=== PATIENT | female | born 1960 ===

== ENCOUNTER 2020-05-25 09:32 | Outpatient (REF) | payer MEDICAID, SELFPAY ==
[2020-05-25 11:03] LABS: Free T4 (Free Thyroxine) 0.99 ng/dL (0.71-1.85); Thyroid Stimulating Hormone 1.26 mIU/mL (0.32-4.0)
[2020-05-28 08:32] LABS: Thyroglobulin Antibody <1 IU/mL (<=1); Thyroglobulin Level 0.2 ng/mL
== END 2020-05-25 09:33 | disposition home or self-care (01) ==
LOC: HO.LAB 09:32
PROVIDERS: Visit Provider Internal Medicine Endocrinology, Diabetes & Metabolism
DX: C73 Malignant neoplasm of thyroid gland (principal)
CPT/HCPCS: 36415; 84432; 84439; 84443; 86800

== ENCOUNTER → 2020-05-27 15:35 | Outpatient (BNVA) | payer MEDICAID, SELFPAY | PROVIDERS: PCP Family Medicine; Visit Provider Internal Medicine Endocrinology, Diabetes & Metabolism | DX: C73 Malignant neoplasm of thyroid gland (principal); E89.0 Postprocedural hypothyroidism; E11.42 Type 2 diabetes mellitus with diabetic polyneuropathy; E78.5 Hyperlipidemia, unspecified; E55.9 Vitamin D deficiency, unspecified; M85.80 Other specified disorders of bone density and structure, unspecified site | CPT/HCPCS: 99212 ==

== ENCOUNTER 2020-05-31 09:18 | Outpatient (REF) | payer MEDICAID, SELFPAY ==
[2020-05-31 10:33] LABS: Hematocrit 37.4 % (37-47); Hemoglobin 12.3 g/dl (12.0-16.0); Mean Corpuscular HGB Conc 32.9 g/dl (31.0-35.0); Mean Corpuscular Hemoglobin 28.5 pg (27.0-33.0); Mean Corpuscular Volume 86.8 fL (80-98); Mean Platelet Volume 12.3 fL (9.4-12.3); Platelet Count 139 X10*3/uL (160-400); Red Blood Count 4.31 X10*6/uL (4.20-5.50); Red Cell Distribution Width 12.2 % (11.0-16.0); White Blood Count 6.9 X10*3/uL (4.8-10.8)
[2020-05-31 10:54] LABS: Alanine Aminotransferase 15 U/L (0-31); Albumin Level 4.2 g/dL (3.5-5.0); Alkaline Phosphatase 51 U/L (39-117); Anion Gap 10 (12-20); Aspartate Amino Transferase 20 U/L (5-31); Bilirubin Total 0.5 mg/dL (0.0-1.0); Blood Urea Nitrogen 11 mg/dL (9-16); Calcium 8.6 mg/dL (8.4-10.2); Carbon Dioxide 29 mmol/L (22-29); Chloride 105 mmol/L (96-108); Cholesterol 149 mg/dL; Estimated Glomerular Filt Rate > 60; Glucose Fasting 97 mg/dL (60-99); HDL Cholesterol 45 mg/dL; LDL Cholesterol Calculated 87 mg/dl; Potassium 4.2 mmol/l (3.3-5.1); Sodium 140 mmol/L (135-145); Total Protein 6.6 g/dL (6.5-8.0); Triglycerides 89 mg/dL
[2020-05-31 10:59] LABS: Estimated Average Glucose 105 mg/dL; Hemoglobin A1c % 5.3 %
[2020-05-31 11:10] LABS: Vitamin B12 423 pg/mL (200-900)
[2020-05-31 11:16] LABS: Vitamin D 25-OH Total 37.9 ng/mL (>30)
[2020-05-31 11:23] LABS: Creatinine Urine 33.22 mg/dL; Microalbumin Urine < 5.0 mg/L
[2020-06-01 19:22] LABS: LDL Cholesterol Direct 88 mg/dL (<100)
[2020-06-04 02:21] LABS: Thyroglobulin Antibody <1 IU/mL (<=1); Thyroglobulin Level 0.4 ng/mL
== END 2020-05-31 09:19 | disposition home or self-care (01) ==
LOC: HO.LAB 09:18
PROVIDERS: PCP Internal Medicine; Visit Provider Internal Medicine Endocrinology, Diabetes & Metabolism
DX: C73 Malignant neoplasm of thyroid gland (principal); M85.80 Other specified disorders of bone density and structure, unspecified site
CPT/HCPCS: 36415; 80053; 80061; 82043; 82306; 82607; 83036; 83721; 84432; 84439; 84443; 85027; 86800

== ENCOUNTER → 2020-08-19 13:59 | Outpatient (BNVA) | payer MEDICAID, SELFPAY | PROVIDERS: PCP Internal Medicine; Visit Provider Student in an Organized Health Care Education/Training Program | DX: M47.816 Spondylosis without myelopathy or radiculopathy, lumbar region (principal) | CPT/HCPCS: 99212 ==

== ENCOUNTER → 2020-08-25 14:45 | Outpatient (BNV) | payer MEDICAID, SELFPAY | PROVIDERS: PCP Internal Medicine; Referring Provider Internal Medicine; Visit Provider Internal Medicine Medical Oncology | DX: D69.6 Thrombocytopenia, unspecified (principal) | CPT/HCPCS: 99203; 99213 ==

== ENCOUNTER → 2021-01-06 10:03 | Outpatient (BNVA) | payer MEDICAID, SELFPAY | PROVIDERS: PCP Internal Medicine; Visit Provider Internal Medicine Endocrinology, Diabetes & Metabolism | DX: C73 Malignant neoplasm of thyroid gland (principal); E89.0 Postprocedural hypothyroidism; E11.42 Type 2 diabetes mellitus with diabetic polyneuropathy; E78.5 Hyperlipidemia, unspecified; M85.80 Other specified disorders of bone density and structure, unspecified site; E55.9 Vitamin D deficiency, unspecified; Z79.899 Other long term (current) drug therapy | CPT/HCPCS: 82947; 99212 ==

== ENCOUNTER 2021-01-14 15:19 | Inpatient (IN) | payer MEDICAID, SELFPAY ==
[2021-01-14] VITALS (13 sets, daily range): BP systolic 91–107; BP diastolic 45–56; PULSE 56–90; RESP 11–19; TEMP 35.3–36.9; O2SAT 97–100; BMI 29.9
--- NOTE | 2021-01-14 | ECG_ITS ---
Test Reason : RESPIRTORY DISTRESS Blood Pressure : / mmHG Vent. Rate : 076 BPM Atrial Rate : 076 BPM P-R Int : 164 ms QRS Dur : 084 ms QT Int : 430 ms P-R-T Axes : 050 -05 018 degrees QTc Int : 483 ms Normal sinus rhythm Possible Left atrial enlargement Borderline ECG When compared with ECG of 05-FEB-2019 12:48, No significant change was found Referred By: Generic ED Physician Electronically Signed By:CYNDI RAMOS MD
--- NOTE | ~2021-01-14 | CT_ITS ---
Indication: Altered mental status, fall EXAMINATION: CT the brain and CT of the cervical spine. Axial imaging with coronal and sagittal reformatted images. Radiation dose [address] brain Comparison previous dated 01/23/2016. There is no midline shift. There is no mass effect. There is no hemorrhage. The basilar cisterns appear patent. The posterior fossa is grossly within normal limits. There is no extra-axial collection. Ventricles normal. Small air-fluid level in the right maxillary sinus. No fracture on the bone windows. CT cervical spine; Negative for fracture or dislocation. CT/CT cervical spine wo con IMPRESSION: Negative acute noncontrast CT of the brain. Small air-fluid level in the right maxillary sinus No fracture or dislocation of the cervical spine.
--- NOTE | ~2021-01-14 | CT_ITS ---
EXAMINATION: CT CHEST, ABDOMEN AND PELVIS WITHOUT CONTRAST CLINICAL INFORMATION: Altered mental status. Fall. COMPARISON: CT scan of the abdomen and pelvis dated 02/14/2019. Chest x-ray dated 02/05/2019. TECHNIQUE: Multidetector volumetric imaging was performed from the base of the neck through the pubic symphysis. Sagittal and coronal reformatted images were obtained on the technologist workstation. This CT examination was performed using dose optimization techniques as appropriate, variously including the following: *Automated exposure control *Adjustment of mA and/or kV according to patient size (this includes techniques or standardized protocols for targeted exams where dose is matched to indication/reason for exam; i.e. extremities or head) *Use of iterative reconstruction technique DLP: CT SCAN OF THE CHEST: 344.98 mGy-cm. CT SCAN OF THE ABDOMEN AND PELVIS: 960.83 mGy-cm. FINDINGS: CT SCAN OF THE CHEST: LUNGS: Endotracheal tube approximately 3 cm above the masood. Trace left pleural effusion and associated dense consolidation and volume loss in the left lower lobe. Mild dependent atelectasis in right lower lobe. Evaluation of lungs limited by motion artifact. There appear to be subtle scattered centrilobular groundglass opacities in the lungs, perhaps related to respiratory bronchiolitis. Subpleural reticular opacities are also seen scattered in the lungs bilaterally and dependent and nondependent portions, possibly representing interstitial lung disease. Overall, however, evaluation of the lungs is is not adequate on this exam due to motion artifact. LYMPHOVASCULAR STRUCTURES: Heart is enlarged with primarily enlargement of the left heart chambers. Moderate to severe coronary artery calcifications. Aorta normal in caliber with mild atherosclerotic calcification seen. Trace fluid in the superior pericardial recess. No mediastinal, hilar or axillary adenopathy or free fluid collection. THYROID GLAND: Surgically absent. CHEST WALL: The patient is status post right mastectomy. BONES: No focal findings. CT SCAN OF THE ABDOMEN AND PELVIS: LIVER, GALLBLADDER, AND BILIARY TREE: The liver is normal in size, shape, and attenuation. No focal hepatic lesion on noncontrast imaging. The gallbladder is surgically absent. Resultant dilatation of the common bile duct up to 1 cm in the pancreatic head is noted. No obstructing stone or mass is seen. Mild central intrahepatic ductal dilatation is noted. PANCREAS: Unremarkable on noncontrast imaging. SPLEEN, ADRENAL GLANDS: Unremarkable on noncontrast imaging. KIDNEYS AND URETERS: The kidneys are normal in size, shape, and attenuation. No hydronephrosis, hydroureter, or calculi seen. No perinephric stranding. BLADDER: Unremarkable. PELVIC VISCERA: Unremarkable. GASTROINTESTINAL TRACT: There is distention of the stomach with large air-fluid level seen. No definite evidence of gastric outlet obstruction is, however, seen. Small and large bowel loops are decompressed and unremarkable . The appendix is not seen but no focal inflammatory process is noted in the right lower quadrant. ABDOMINAL WALL: Tiny fat-containing umbilical hernia is seen. LYMPH NODES, VASCULAR: No abdominal or pelvic adenopathy or free fluid. Abdominal aorta normal in caliber with mild atherosclerotic calcification seen involving the aorta iliac and femoral vessels. OSSEOUS STRUCTURES: Bilateral L5 pars defects are seen without spondylolisthesis. No acute fracture seen. Mild multilevel vertebral spurring in the thoracolumbar spine. CT/CT abdomen pelvis wo con IMPRESSION: 1. No evidence of acute injury to the chest, abdomen or pelvis. 2. As discussed above, evaluation of the lungs is extremely limited due to motion artifact. There may be underlying interstitial lung disease and respiratory bronchiolitis. However, close clinical correlation is requested and repeat CT imaging would be needed for clarification of findings. 3. Cardiomegaly and prominent atherosclerotic calcifications. 4. Status post thyroidectomy, right mastectomy, cholecystectomy with resultant mild biliary dilatation. 5. Tiny fat-containing umbilical hernia.
--- NOTE | ~2021-01-14 | CT_ITS ---
Indication: Altered mental status, fall EXAMINATION: CT the brain and CT of the cervical spine. Axial imaging with coronal and sagittal reformatted images. Radiation dose [address] brain Comparison previous dated 01/23/2016. There is no midline shift. There is no mass effect. There is no hemorrhage. The basilar cisterns appear patent. The posterior fossa is grossly within normal limits. There is no extra-axial collection. Ventricles normal. Small air-fluid level in the right maxillary sinus. No fracture on the bone windows. CT cervical spine; Negative for fracture or dislocation. CT/CT head/brain wo con IMPRESSION: Negative acute noncontrast CT of the brain. Small air-fluid level in the right maxillary sinus No fracture or dislocation of the cervical spine.
--- NOTE | 2021-01-14 15:26 | ED_ITS ---
HPI - Altered Mental Status General Chief Complaint: Dyspnea Stated Complaint: resp distress Time Seen by Provider: 01/14/21 15:23 Source: EMS and old records reviewed Mode of arrival: EMS Limitations: altered mental status History of Present Illness HPI narrative: 60 yo female with hx of DM, osteopenia, thrombocytopenia suspected ITP, asthma, HLD comes in with reported fall earlier in the day then was at a sporting event was unresponsive EMS found patient with snoring respirations sats in the 40s EMS notes bystanders were trying to put food in her mouth when she was unresponsive, their blood sugar was > 100, she was intubated by EMS sats up to 99%, given versed en route as she became more alert with oxygen MD complaint: altered mental status Onset (ago): minute(s) Timing confirmed by: family member Severity: severe Context: other ( told EMS the patient fell earlier today) Treatments prior to arrival: oxygen, intubation and other (IV versed) Related Data Home Medications Medication Instructions Recorded Confirmed albuterol sulfate 90 mcg/actuation 2 puff INHALATION Q6H PRN 05/27/20 01/06/21 aerosol inhaler aspirin 81 mg tablet,delayed 81 mg PO DAILY 05/27/20 01/06/21 release atorvastatin 40 mg tablet 40 mg PO DAILY 05/27/20 01/06/21 cholecalciferol (vitamin D3) 25 25 mcg PO DAILY 05/27/20 01/06/21 mcg (1,000 unit) capsule clonazepam 0.5 mg tablet 0.5 mg PO DAILY 05/27/20 01/06/21 clonazepam 2 mg tablet 2 mg PO DAILY 05/27/20 01/06/21 escitalopram oxalate 20 mg tablet 20 mg PO DAILY 05/27/20 01/06/21 fluticasone propionate 110 1 puff INHALATION BID 05/27/20 01/06/21 mcg/actuation HFA aerosol inhaler lanolin alcohols-mineral 1 applic TOPICAL DAILY 05/27/20 01/06/21 oil-w.petrolatum-ceresin topical cream sennosides 8.6 mg tablet 8.6 mg PO DAILY 05/27/20 01/06/21 Previous Rx's Medication Instructions Recorded baclofen 10 mg tablet 10 mg PO BID PRN #60 tab 08/16/20 tramadol 50 mg tablet 50 mg PO Q6H #120 tab 08/17/20 levothyroxine 150 mcg tablet 150 mcg PO DAILY 30 Days #30 tab 01/06/21 sitagliptin 100 mg tablet 100 mg PO DAILY #30 tab 01/06/21 Allergies Allergy/AdvReac Type Severity Reaction Status Date / Time ibuprofen Allergy Unknown ITCHY Unverified 08/19/20 14:05 Review of Systems Review of Systems: ROS unable to be obtained due to altered mental status PMFSH Past Medical History Medical History (Updated 01/14/21 @ 17:22 by Kami Collier DO) Diabetes type 2, controlled Diabetic polyneuropathy associated with type 2 diabetes mellitus Dyslipidemia H/O malignant neoplasm of skin Lumbar spondylosis Osteopenia Post-surgical hypothyroidism Primary thyroid cancer Vitamin D deficiency Surgical History History of biopsy History of bunionectomy History of carpal tunnel release Hx of cholecystectomy Hx of colonoscopy Hx of hysterectomy Hx of mastectomy Hx of thyroidectomy Family History Family History Father Diabetes mellitus Mother Cancer of eye Skin cancer of nose Social History Social History (Updated 01/06/21 @ 10:23 by RHONDA Lee) Alcohol intake: former Patient Tobacco Use Status: Current someday Tobacco user Cigarette Packs Per Day: 1 Advance Directives: No Advance Directives Information Provided: No Patient : No Physical Exam Vital Signs: Vital Signs: Last Vital Signs Temp 95.5 F L 01/14/21 16:40 Pulse 76 01/14/21 16:40 Resp 18 01/14/21 16:40 BP 107/49 L 01/14/21 16:40 Pulse Ox 100 01/14/21 16:40 Body Mass Index 29.9 Appearance: obtunded, severe distress Eyes: Pupils equal, round and reactive to light. 2mm but nystagmus and vertical gaze noted ENT: Pharynx scant ooze noted from upper gum line, food in oropharynx suctioned Neck: Normal inspection. Neck supple. CVS: Normal heart rate and rhythm. Pulses normal. Respiratory: No respiratory distress. Breath sounds coarse and diminished with gurgling sounds heards ETT pulled back on arrival 6.[address] pulled back to 22 gum line Abdomen: Soft and no trauma Skin: Skin warm and dry. pale skin color. Normal skin turgor. Extremities: No lower extremity edema. Neuro: opened eyes at one point but nothing purposeful, intermittent response to pain at this time Course Course Course Narrative: the patient seems more awake, she is biting her tube but not able to protect airway, at this time pending workup will hold her sedation. this seems more ETOH related at this time. POC normal. will hold narcan. wakes to voice, family able to calm her no medicatons for sedation on board, given zosyn for suspected aspiration has UTI - levofloxacin added noted that the patient has a hx of using oxycodone from the streets MDM - Altered Mental Status MDM Narrative Medical decision making narrative: 60 yo female with hx of DM, osteopenia, thrombocytopenia suspected ITP, asthma, HLD comes in with reported fall earlier in the day then was at a sporting event was unresponsive EMS found patient with snoring respirations sats in the 40s EMS notes bystanders were tryiing to put food in her mouth when she was unresponsive, their blood sugar was > 100, she was intubated by EMS sats up to 99%, given versed en route as she became more alert with oxygen, will obtain labs, CT scan of head/neck/chest/abdomen given falls and respiratory event, tox/infectious workup, IV steroids for wheezing and neb treatments, will attempt narcan IV post neb treatments in case this is opiate overdose she is on tramadol at home, no narcan given in the field Lab Data Result diagrams: 01/14/21 15:42 01/14/21 15:42 Labs: Lab Results 01/14/21 01/14/21 01/14/21 Range/Units 15:36 15:42 15:42 WBC 6.9 (4.8-10.8) X10*3/uL RBC 4.08 L (4.20-5.50) X10*6/uL Hgb 11.5 L (12.0-16.0) g/dl Hct 35.4 L (37-47) % MCV 86.8 (80-98) fL MCH 28.2 (27.0-33.0) pg MCHC 32.5 (31.0-35.0) g/dl RDW 12.6 (11.0-16.0) % Plt Count 122 L D (160-400) X10*3/uL MPV 12.0 (9.4-12.3) fL Immature Gran % (Auto) 0.6 H (0.0-0.4) % Neut % (Auto) 73.1 H (45-73) % Lymph % (Auto) 19.5 L (20-40) % [place] % (Auto) 4.5 (2-11) % Eos % (Auto) 1.7 (0-4) % Baso % (Auto) 0.6 (0-2) % Lymph # (Auto) 1.4 (1.2-4.9) X10*3/uL [place] # (Auto) 0.3 (0.1-1.2) X10*3/uL Eos # (Auto) 0.1 (0.0-0.4) X10*3/uL Baso # (Auto) 0.0 (0.0-0.2) X10*3/uL Abs Immat Gran (auto) 0.04 H (0.00-0.03) X10*3/uL Absolute Neuts (auto) 5.1 (2.0-8.3) X10*3/uL Absolute Nucleated RBC 0.000 (0.0-0.012) X10*3/uL Nucleated RBC % (auto) 0.0 (0.0-0.2) /100WBC Smear Tech's Comments VERIFIED PT (10.8-13.0) SEC INR (0.9-1.1) APTT (24.1-38.0) SEC VBG pH (7.32-7.43) VBG pCO2 mmHg VBG pO2 mmHg VBG HCO3 (22-26) mmol/L VBG O2 Saturation % VBG Base Excess mmol/L Sodium 144 (135-145) mmol/L Potassium 3.5 (3.3-5.1) mmol/L Chloride 110 H (96-108) mmol/L Carbon Dioxide 26 (22-29) mmol/L Anion Gap 12 (12-20) BUN 9 (9-16) mg/dL Creatinine 0.92 (0.5-1.4) mg/dL Estim Creat Clear Calc 63.8 Estimated GFR > 60 POC Glucose 187 H (60-115) mg/dL Random Glucose 202 H D (60-115) mg/dL Lactic Acid (0.5-2.0) mmol/L Calcium 9.0 (8.4-10.2) mg/dL Magnesium (1.6-2.6) mg/dL Total Bilirubin (0.0-1.0) mg/dL Direct Bilirubin (0.0-0.5) mg/dL AST (5-31) U/L ALT (0-31) U/L Alkaline Phosphatase (39-117) U/L Total Creatine Kinase (26-140) U/L Troponin I High Sens (<3.5-17.0) ng/L Total Protein (6.5-8.0) g/dL Albumin (3.5-5.0) g/dL Lipase (8-78) U/L Urine Color Urine Appearance Urine pH (5.0-8.0) Ur Specific [place] (1.005-1.025) Urine Protein (NEG-TRACE) MG/DL Urine Glucose (UA) (NEG) MG/DL Urine Ketones (NEG) MG/DL Urine Blood (NEG) Urine Nitrite (NEG) Ur Leukocyte Esterase (NEG) Urine RBC (0) /HPF Urine WBC (0-4) /HPF Urine WBC Clumps Ur Squamous Epith Cells /LPF Urine Bacteria /LPF Hyaline Casts /LPF Urine Mucus /LPF Urine Opiates Screen (Not Detect) Ur Barbiturates Screen (Not Detect) Ur Phencyclidine Scrn (Not Detect) Ur Amphetamines Screen (Not Detect) U Benzodiazepines Scrn (Not Detect) Urine Cocaine Screen (Not Detect) U Marijuana (THC) Screen (Not Detect) Ethyl Alcohol mg/dL COVID-19 ([facility]) (Negative) COVID-19 Clin Com 01/14/21 01/14/21 01/14/21 Range/Units 15:42 15:42 15:42 WBC (4.8-10.8) X10*3/uL RBC (4.20-5.50) X10*6/uL Hgb (12.0-16.0) g/dl Hct (37-47) % MCV (80-98) fL MCH (27.0-33.0) pg MCHC (31.0-35.0) g/dl RDW (11.0-16.0) % Plt Count (160-400) X10*3/uL MPV (9.4-12.3) fL Immature Gran % (Auto) (0.0-0.4) % Neut % (Auto) (45-73) % Lymph % (Auto) (20-40) % [place] % (Auto) (2-11) % Eos % (Auto) (0-4) % Baso % (Auto) (0-2) % Lymph # (Auto) (1.2-4.9) X10*3/uL [place] # (Auto) (0.1-1.2) X10*3/uL Eos # (Auto) (0.0-0.4) X10*3/uL Baso # (Auto) (0.0-0.2) X10*3/uL Abs Immat Gran (auto) (0.00-0.03) X10*3/uL Absolute Neuts (auto) (2.0-8.3) X10*3/uL Absolute Nucleated RBC (0.0-0.012) X10*3/uL Nucleated RBC % (auto) (0.0-0.2) /100WBC Smear Tech's Comments PT (10.8-13.0) SEC INR (0.9-1.1) APTT (24.1-38.0) SEC VBG pH (7.32-7.43) VBG pCO2 mmHg VBG pO2 mmHg VBG HCO3 (22-26) mmol/L VBG O2 Saturation % VBG Base Excess mmol/L Sodium (135-145) mmol/L Potassium (3.3-5.1) mmol/L Chloride (96-108) mmol/L Carbon Dioxide (22-29) mmol/L Anion Gap (12-20) BUN (9-16) mg/dL Creatinine (0.5-1.4) mg/dL Estim Creat Clear Calc Estimated GFR POC Glucose (60-115) mg/dL Random Glucose (60-115) mg/dL Lactic Acid 2.1 H* (0.5-2.0) mmol/L Calcium (8.4-10.2) mg/dL Magnesium 1.9 (1.6-2.6) mg/dL Total Bilirubin 0.3 (0.0-1.0) mg/dL Direct Bilirubin < 0.2 (0.0-0.5) mg/dL AST 26 (5-31) U/L ALT 17 (0-31) U/L Alkaline Phosphatase 67 (39-117) U/L Total Creatine Kinase 91 (26-140) U/L Troponin I High Sens < 3.5 (<3.5-17.0) ng/L Total Protein 6.4 L (6.5-8.0) g/dL Albumin 3.9 (3.5-5.0) g/dL Lipase 45 (8-78) U/L Urine Color Urine Appearance Urine pH (5.0-8.0) Ur Specific [place] (1.005-1.025) Urine Protein (NEG-TRACE) MG/DL Urine Glucose (UA) (NEG) MG/DL Urine Ketones (NEG) MG/DL Urine Blood (NEG) Urine Nitrite (NEG) Ur Leukocyte Esterase (NEG) Urine RBC (0) /HPF Urine WBC (0-4) /HPF Urine WBC Clumps Ur Squamous Epith Cells /LPF Urine Bacteria /LPF Hyaline Casts /LPF Urine Mucus /LPF Urine Opiates Screen (Not Detect) Ur Barbiturates Screen (Not Detect) Ur Phencyclidine Scrn (Not Detect) Ur Amphetamines Screen (Not Detect) U Benzodiazepines Scrn (Not Detect) Urine Cocaine Screen (Not Detect) U Marijuana (THC) Screen (Not Detect) Ethyl Alcohol mg/dL COVID-19 ([facility]) (Negative) COVID-19 Clin Com 01/14/21 01/14/21 01/14/21 Range/Units 15:45 15:45 15:45 WBC (4.8-10.8) X10*3/uL RBC (4.20-5.50) X10*6/uL Hgb (12.0-16.0) g/dl Hct (37-47) % MCV (80-98) fL MCH (27.0-33.0) pg MCHC (31.0-35.0) g/dl RDW (11.0-16.0) % Plt Count (160-400) X10*3/uL MPV (9.4-12.3) fL Immature Gran % (Auto) (0.0-0.4) % Neut % (Auto) (45-73) % Lymph % (Auto) (20-40) % [place] % (Auto) (2-11) % Eos % (Auto) (0-4) % Baso % (Auto) (0-2) % Lymph # (Auto) (1.2-4.9) X10*3/uL [place] # (Auto) (0.1-1.2) X10*3/uL Eos # (Auto) (0.0-0.4) X10*3/uL Baso # (Auto) (0.0-0.2) X10*3/uL Abs Immat Gran (auto) (0.00-0.03) X10*3/uL Absolute Neuts (auto) (2.0-8.3) X10*3/uL Absolute Nucleated RBC (0.0-0.012) X10*3/uL Nucleated RBC % (auto) (0.0-0.2) /100WBC Smear Tech's Comments PT 12.7 (10.8-13.0) SEC INR 1.1 (0.9-1.1) APTT 26.2 (24.1-38.0) SEC VBG pH (7.32-7.43) VBG pCO2 mmHg VBG pO2 mmHg VBG HCO3 (22-26) mmol/L VBG O2 Saturation % VBG Base Excess mmol/L Sodium (135-145) mmol/L Potassium (3.3-5.1) mmol/L Chloride (96-108) mmol/L Carbon Dioxide (22-29) mmol/L Anion Gap (12-20) BUN (9-16) mg/dL Creatinine (0.5-1.4) mg/dL Estim Creat Clear Calc Estimated GFR POC Glucose (60-115) mg/dL Random Glucose (60-115) mg/dL Lactic Acid (0.5-2.0) mmol/L Calcium (8.4-10.2) mg/dL Magnesium (1.6-2.6) mg/dL Total Bilirubin (0.0-1.0) mg/dL Direct Bilirubin (0.0-0.5) mg/dL AST (5-31) U/L ALT (0-31) U/L Alkaline Phosphatase (39-117) U/L Total Creatine Kinase (26-140) U/L Troponin I High Sens (<3.5-17.0) ng/L Total Protein (6.5-8.0) g/dL Albumin (3.5-5.0) g/dL Lipase (8-78) U/L Urine Color Urine Appearance Urine pH (5.0-8.0) Ur Specific [place] (1.005-1.025) Urine Protein (NEG-TRACE) MG/DL Urine Glucose (UA) (NEG) MG/DL Urine Ketones (NEG) MG/DL Urine Blood (NEG) Urine Nitrite (NEG) Ur Leukocyte Esterase (NEG) Urine RBC (0) /HPF Urine WBC (0-4) /HPF Urine WBC Clumps Ur Squamous Epith Cells /LPF Urine Bacteria /LPF Hyaline Casts /LPF Urine Mucus /LPF Urine Opiates Screen (Not Detect) Ur Barbiturates Screen (Not Detect) Ur Phencyclidine Scrn (Not Detect) Ur Amphetamines Screen (Not Detect) U Benzodiazepines Scrn (Not Detect) Urine Cocaine Screen (Not Detect) U Marijuana (THC) Screen (Not Detect) Ethyl Alcohol < 10 mg/dL COVID-19 ([facility]) Negative (Negative) COVID-19 Clin Com See Note 01/14/21 01/14/21 01/14/21 Range/Units 15:45 16:36 16:36 WBC (4.8-10.8) X10*3/uL RBC (4.20-5.50) X10*6/uL Hgb (12.0-16.0) g/dl Hct (37-47) % MCV (80-98) fL MCH (27.0-33.0) pg MCHC (31.0-35.0) g/dl RDW (11.0-16.0) % Plt Count (160-400) X10*3/uL MPV (9.4-12.3) fL Immature Gran % (Auto) (0.0-0.4) % Neut % (Auto) (45-73) % Lymph % (Auto) (20-40) % [place] % (Auto) (2-11) % Eos % (Auto) (0-4) % Baso % (Auto) (0-2) % Lymph # (Auto) (1.2-4.9) X10*3/uL [place] # (Auto) (0.1-1.2) X10*3/uL Eos # (Auto) (0.0-0.4) X10*3/uL Baso # (Auto) (0.0-0.2) X10*3/uL Abs Immat Gran (auto) (0.00-0.03) X10*3/uL Absolute Neuts (auto) (2.0-8.3) X10*3/uL Absolute Nucleated RBC (0.0-0.012) X10*3/uL Nucleated RBC % (auto) (0.0-0.2) /100WBC Smear Tech's Comments PT (10.8-13.0) SEC INR (0.9-1.1) APTT (24.1-38.0) SEC VBG pH 7.21 L (7.32-7.43) VBG pCO2 60 mmHg VBG pO2 222 mmHg VBG HCO3 24 (22-26) mmol/L VBG O2 Saturation 99.0 % VBG Base Excess -4.0 mmol/L Sodium (135-145) mmol/L Potassium (3.3-5.1) mmol/L Chloride (96-108) mmol/L Carbon Dioxide (22-29) mmol/L Anion Gap (12-20) BUN (9-16) mg/dL Creatinine (0.5-1.4) mg/dL Estim Creat Clear Calc Estimated GFR POC Glucose (60-115) mg/dL Random Glucose (60-115) mg/dL Lactic Acid (0.5-2.0) mmol/L Calcium (8.4-10.2) mg/dL Magnesium (1.6-2.6) mg/dL Total Bilirubin (0.0-1.0) mg/dL Direct Bilirubin (0.0-0.5) mg/dL AST (5-31) U/L ALT (0-31) U/L Alkaline Phosphatase (39-117) U/L Total Creatine Kinase (26-140) U/L Troponin I High Sens (<3.5-17.0) ng/L Total Protein (6.5-8.0) g/dL Albumin (3.5-5.0) g/dL Lipase (8-78) U/L Urine Color YELLOW Urine Appearance CLEAR Urine pH 5.5 (5.0-8.0) Ur Specific [place] >= 1.030 H (1.005-1.025) Urine Protein 1+ H (NEG-TRACE) MG/DL Urine Glucose (UA) NEG (NEG) MG/DL Urine Ketones NEG (NEG) MG/DL Urine Blood TRACE (NEG) Urine Nitrite POS H (NEG) Ur Leukocyte Esterase 1+ H (NEG) Urine RBC 1-4 (0) /HPF Urine WBC 15-29 H (0-4) /HPF Urine WBC Clumps NOTED Ur Squamous Epith Cells TRACE /LPF Urine Bacteria 2+ /LPF Hyaline Casts 0-2 /LPF Urine Mucus TRACE /LPF Urine Opiates Screen POSITIVE H (Not Detect) Ur Barbiturates Screen Not Detected (Not Detect) Ur Phencyclidine Scrn Not Detected (Not Detect) Ur Amphetamines Screen Not Detected (Not Detect) U Benzodiazepines Scrn POSITIVE H (Not Detect) Urine Cocaine Screen Not Detected (Not Detect) U Marijuana (THC) Screen Not Detected (Not Detect) Ethyl Alcohol mg/dL COVID-19 ([facility]) (Negative) COVID-19 Clin Com ECG Data ECG #1: Attestation: I personally reviewed and interpreted this ECG as follows: ECG interpretation date: 01/14/21 ECG interpretation time: 15:40 Interpretation: Rate: 76 Rhythm: NSR [place]: left Normal P waves. Normal JEFFERY. Normal QRS complex. ST T wave : normal no ANALIA qTC: normal prior studies: no acute ischemia The study has been interpreted contemporaneously by me. . Critical Care Time Critical Care Time Critical Care Time: Yes Total Critical Care Time: 60 Attestation: medical consult, management of vent, IV antibiotics I attest to this time spent taking care of the patient Discharge Plan Discharge Clinical Impression: Respiratory arrest, Acidosis, lactic UTI (urinary tract infection) Qualifiers: Urinary tract infection type: site unspecified Hematuria presence: without hematuria Qualified Code(s): N39.0 - Urinary tract infection, site not specified Opiate overdose Qualifiers: Encounter type: initial encounter Injury intent: accidental or unintentional Qualified Code(s): T40.601A - Poisoning by unspecified narcotics, accidental (unintentional), initial encounter Aspiration pneumonia Qualifiers: Aspiration pneumonia type: unspecified Laterality: left Lung location: unspecified part of lung Qualified Code(s): J69.0 - Pneumonitis due to inhalation of food and vomit Patient Disposition: Admitted As Inpatient
[2021-01-14 15:49] LABS: Basophils Percent Auto 0.6 % (0-2); MANUAL DIFF FLAG SCAN; Mean Corpuscular Volume 86.8 fL (80-98); PLT CLUMP 1; SCAN SMEAR FLAG 1
[2021-01-14] MEDS: methylPREDNISolone Sod Succ 125 MG/2 ML VIAL IVPUSH (15:49)
[2021-01-14] MEDS: Piperacillin Sodium/Tazobactam 3.375 GM in 0.9 % Sodium Chloride 50 ML IV (15:49)
[2021-01-14] MEDS: Magnesium Sulfate/H2O 2 GM/50 ML PIGGYBACK IV (15:49)
[2021-01-14 15:51] LABS: Eosinophils Absolute Auto 0.1 X10*3/uL (0.0-0.4); Eosinophils Percent Auto 1.7 % (0-4); Hematocrit 35.4 % (37-47); Hemoglobin 11.5 g/dl (12.0-16.0); Imm Gran Abs Auto 0.04 X10*3/uL (0.00-0.03); Imm Gran Pct Auto 0.6 % (0.0-0.4); Lymphocytes Absolute Auto 1.4 X10*3/uL (1.2-4.9); Lymphocytes Percent Auto 19.5 % (20-40); Mean Corpuscular HGB Conc 32.5 g/dl (31.0-35.0); Mean Corpuscular Hemoglobin 28.2 pg (27.0-33.0); Monocytes Absolute Auto 0.3 X10*3/uL (0.1-1.2); Monocytes Percent Auto 4.5 % (2-11); Neutrophils Absolute Auto 5.1 X10*3/uL (2.0-8.3); Neutrophils Percent Auto 73.1 % (45-73); Platelet Count 122 X10*3/uL (160-400); Red Blood Count 4.08 X10*6/uL (4.20-5.50); Red Cell Distribution Width 12.6 % (11.0-16.0); White Blood Count 6.9 X10*3/uL (4.8-10.8)
[2021-01-14] MEDS: Albuterol Sulfate (0.083%) 2.5 MG/3 ML VIAL.NEB 10 MG INHALE (15:54)
[2021-01-14 15:58] LABS: VBG HCO3 24 mmol/L (22-26); VBG pCO2 60 mmHg; VBG pO2 222 mmHg
[2021-01-14 16:01] LABS: Venous Blood Gas Refer to POC result
[2021-01-14 16:05] LABS: INTERNATIONAL NORM RATIO 1.1 (0.9-1.1); Prothrombin Time 12.7 SEC (10.8-13.0)
[2021-01-14 16:08] LABS: Partial Thromboplastin Time 26.2 SEC (24.1-38.0)
[2021-01-14 16:09] LABS: COVID-19 Test Negative (Negative); IDNOW Serial# 9DD0AD1C
[2021-01-14 16:10] LABS: Anion Gap 12 (12-20); Blood Urea Nitrogen 9 mg/dL (9-16); Carbon Dioxide 26 mmol/L (22-29); Chloride 110 mmol/L (96-108); Creatinine Clr Calc Pharmacy 63.8; Estimated Glomerular Filt Rate > 60; Glucose Random 202 mg/dL (60-115); Potassium 3.5 mmol/L (3.3-5.1); SLIDE REVIEW VERIFIED; Sodium 144 mmol/L (135-145)
[2021-01-14 16:10] LABS: VBG pH 7.21 (7.32-7.43)
[2021-01-14 16:11] LABS: Lactic Acid 2.1 mmol/L (0.5-2.0)
[2021-01-14 16:14] LABS: Alanine Aminotransferase 17 U/L (0-31); Albumin Level 3.9 g/dL (3.5-5.0); Alkaline Phosphatase 67 U/L (39-117); Aspartate Amino Transferase 26 U/L (5-31); Bilirubin Direct < 0.2 mg/dL (0.0-0.5); Bilirubin Total 0.3 mg/dL (0.0-1.0); Lipase 45 U/L (8-78); Magnesium 1.9 mg/dL (1.6-2.6); Total Protein 6.4 g/dL (6.5-8.0)
[2021-01-14 16:16] LABS: Troponin-I High Sensitivity < 3.5 ng/L (<3.5-17.0)
[2021-01-14 16:22] LABS: Ethanol < 10 mg/dL
[2021-01-14 16:39] LABS: Glucose, Whole Blood 187 mg/dL (60-115)
[2021-01-14 16:45] LABS: Glucose Urine UA NEG (NEG); Leukocyte Esterase Urine 1+ (NEG); Nitrite Urine POS (NEG); PH 5.5 (5.0-8.0); Specific Gravity - Urine >= 1.030 (1.005-1.025); UACC Culture Trigger YES; Urine Blood TRACE (NEG); Urine Ketones NEG (NEG); Urine Protein 1+ MG/DL (NEG-TRACE)
[2021-01-14 16:46] LABS: Appearance Urine CLEAR; Color Urine YELLOW
[2021-01-14 16:56] LABS: Bacteria Urine 2+ /LPF; Mucus Urine TRACE /LPF; Squamous Epithelial Cell Urine TRACE /LPF
[2021-01-14 16:57] LABS: Hyaline Casts Urine 0-2 /LPF; WBC Clumps Urine NOTED
[2021-01-14] MEDS: levoFLOXacin/D5W 500 MG/100 ML PIGGYBACK 100 MG IV (17:00)
[2021-01-14 17:13] LABS: Amphetamine Screen Urine Not Detected (Not Detect); Barbiturates, Urine Not Detected (Not Detect); Benzodiazepines Screen Urine POSITIVE (Not Detect); Cannabinoid Screen Urine Not Detected (Not Detect); Cocaine Screen Urine Not Detected (Not Detect); Opiate Screen Urine POSITIVE (Not Detect); Phencyclidine Screen Urine Not Detected (Not Detect)
--- NOTE | 2021-01-14 17:15 | PC.NURSE ---
Pt's family in waiting room, updated on plan of care. Awaiting CT scans.
[2021-01-14 17:45] LABS: Reflex Lactate? Lactic Acid Added
[2021-01-14] MEDS: propofoL 1,000 MG/100 ML VIAL 31.1 MG IVCONT (18:53)
[2021-01-14 19:12] LABS: ~Lactic Acid-LAB USE ONLY 1.2 mmol/L (0.5-2.0)
--- NOTE | 2021-01-14 19:32 | PM.CCHP ---
History of Present Illness Date of Service: 01/14/21 Chief Complaint: Unresponsive This is a 60-year-old female with a history of diabetes mellitus, chronic thrombocytopenia suspected ITP, asthma, fibromyalgia, osteoarthritis, hyperlipidemia, postsurgical hypothyroidism and history of left breast cancer status post surgery/radiation Who presented to the emergency room after found unresponsive by EMS. Per EMS, patient was in a sporting event suddenly became unresponsive. Bystanders were trying to put food in her mouth and saturation in the 40s. She was intubated on the field, blood sugar was noted to be > 100 and saturations 99% after intubation. Laboratory data significant for venous pH 7.21, platelets of 122. Urine toxicology positive for opiates. Imaging: Head CT: no acute findings Cervical spine CT: no acute fracture/dislocation Chest CT: no evidence of acute injury. Underlying interstitial lung disease and respiratory bronchiolitis. Abdomen/pelvis: no signs of acute injury. In the emergency room, she received Narcan, levofloxacin, Zosyn, Solu-Medrol, magnesium 2, and 2.1 L of normal saline. It was noted that patient does not take any prescription opiate, but in the emergency room patient did admit patient has a history of obtaining oxycodone from the street. She will be admitted into the ICU for hypoxic respiratory failure respiratory failure Review of Systems Review of Systems: unable to perform patient intubated [facility] Past Medical History Medical History (Updated 01/14/21 @ 20:01 by Lynsey Santos) Diabetes type 2, controlled Diabetic polyneuropathy associated with type 2 diabetes mellitus Dyslipidemia H/O malignant neoplasm of skin Lumbar spondylosis Osteopenia Post-surgical hypothyroidism Primary thyroid cancer Vitamin D deficiency Family History Family History Father Diabetes mellitus Mother Cancer of eye Skin cancer of nose Surgical History Surgical History History of biopsy History of bunionectomy History of carpal tunnel release Hx of cholecystectomy Hx of colonoscopy Hx of hysterectomy Hx of mastectomy Hx of thyroidectomy Social History Social History (Updated 01/06/21 @ 10:23 by RHONDA Lee) Alcohol intake: former Patient Tobacco Use Status: Current someday Tobacco user Cigarette Packs Per Day: 1 Advance Directives: No Advance Directives Information Provided: No Patient : No Meds Allergies Allergy/AdvReac Type Severity Reaction Status Date / Time ibuprofen Allergy Unknown ITCHY Unverified 08/19/20 14:05 Active Medications: Current Medications Generic Name Dose Route Start Last Admin Trade Name Freq PRN Reason Stop Dose Admin Chlorhexidine Gluconate 15 ml 01/14/21 17:30 Chlorhexidine Gluc Oral Rinse 15 Ml Mouthwash BUCCAL Q8H CHUCK Famotidine 20 mg 01/14/21 21:00 Famotidine/Pf 20 Mg/2 Ml Vial IVPUSH BID CHUCK Heparin Sodium (Porcine) 5,000 unit 01/14/21 18:00 Heparin Sodium,Porcine 5,000 Unit/Ml Vial SUBCUT Q8H CHUCK Fentanyl 1,000 mcg in 100 mls @ 0 mls/hr 01/14/21 15:45 Sublimaze/Ns IVCONT .Q0M CHUCK Protocol Per Protocol Midazolam HCl 50 mg in 50 mls @ 2 mls/hr 01/14/21 15:45 01/14/21 18:28 Versed IVCONT Not Given .Q24H CHUCK 2 MG/HR Propofol 1,000 mg in 100 mls @ 0 mls/hr 01/14/21 17:45 01/14/21 18:53 Diprivan IVCONT 72 mcg/kg/min .Q0M CHUCK 31.1 mls/hr Administration Protocol Per Protocol Ampicillin Sodium/Sulbactam 100 mls @ 200 mls/hr 01/14/21 23:00 Sodium 3 gm/ Sodium Chloride IV Q6H CHUCK Insulin Human Lispro 0 unit 01/14/21 17:45 Insulin Lispro 100 Unit/Ml 3 Ml Vial SUBCUT Q6H [facility] Protocol Naloxone HCl 0.2 mg 01/14/21 15:32 Naloxone Hcl 0.4 Mg/Ml Vial IVPUSH Q2M PRN Excessive sedation or RR < 8 Home Medications Medication Instructions Recorded Confirmed Last Taken Type albuterol sulfate 90 mcg/actuation 2 puff INHALATION Q6H PRN 05/27/20 01/06/21 Unknown History aerosol inhaler aspirin 81 mg tablet,delayed 81 mg PO DAILY 05/27/20 01/06/21 Unknown History release atorvastatin 40 mg tablet 40 mg PO DAILY 05/27/20 01/06/21 Unknown History cholecalciferol (vitamin D3) 25 25 mcg PO DAILY 05/27/20 01/06/21 Unknown History mcg (1,000 unit) capsule clonazepam 0.5 mg tablet 0.5 mg PO DAILY 05/27/20 01/06/21 Unknown History clonazepam 2 mg tablet 2 mg PO DAILY 05/27/20 01/06/21 Unknown History escitalopram oxalate 20 mg tablet 20 mg PO DAILY 05/27/20 01/06/21 Unknown History fluticasone propionate 110 1 puff INHALATION BID 05/27/20 01/06/21 Unknown History mcg/actuation HFA aerosol inhaler lanolin alcohols-mineral 1 applic TOPICAL DAILY 05/27/20 01/06/21 Unknown History oil-w.petrolatum-ceresin topical cream sennosides 8.6 mg tablet 8.6 mg PO DAILY 05/27/20 01/06/21 Unknown History Physical Exam Vital Signs: Vital Signs: Last Vital Signs Temp 97.3 F 01/14/21 18:55 Pulse 65 01/14/21 18:55 Resp 12 01/14/21 18:55 BP 105/53 L 01/14/21 18:55 Pulse Ox 99 01/14/21 18:55 Body Mass Index 29.9 Appearance: intubated, no active distress Eyes: Pupils equal, round and reactive to light. 2mm but nystagmus and vertical gaze noted ENT: dry mucous membrane Neck: Normal inspection. Neck supple. CVS: Normal heart rate and rhythm. Pulses normal. Respiratory: No respiratory distress. lungs diminished throughout Abdomen: Soft and no trauma Skin: Skin warm and dry. pale skin color. Normal skin turgor. Extremities: No lower extremity edema. Neuro: opens eyes randomly Results Labs CBC and Chem 7: 01/14/21 15:42 01/14/21 15:42 Labs: Laboratory Results - last 24 hr 01/14/21 01/14/21 01/14/21 15:36 15:42 15:42 MCV 86.8 MCH 28.2 MCHC 32.5 RDW 12.6 Plt Count 122 L D MPV 12.0 Immature Gran % (Auto) 0.6 H Neut % (Auto) 73.1 H Lymph % (Auto) 19.5 L [place] % (Auto) 4.5 Eos % (Auto) 1.7 Baso % (Auto) 0.6 Lymph # (Auto) 1.4 [place] # (Auto) 0.3 Eos # (Auto) 0.1 Baso # (Auto) 0.0 Abs Immat Gran (auto) 0.04 H Absolute Neuts (auto) 5.1 Absolute Nucleated RBC 0.000 Nucleated RBC % (auto) 0.0 Smear Tech's Comments VERIFIED PT INR APTT VBG pH VBG pCO2 VBG pO2 VBG HCO3 VBG O2 Saturation VBG Base Excess Anion Gap 12 Estim Creat Clear Calc 63.8 Estimated GFR > 60 POC Glucose 187 H Random Glucose 202 H D Lactic Acid Lactic Acid Fup @ 2Hr Calcium 9.0 Magnesium Total Bilirubin Direct Bilirubin AST ALT Alkaline Phosphatase Total Creatine Kinase Troponin I High Sens Total Protein Albumin Lipase Urine Color Urine Appearance Urine pH Ur Specific Reyn[place] Urine Protein Urine Glucose (UA) Urine Ketones Urine Blood Urine Nitrite Ur Leukocyte Esterase Urine RBC Urine WBC Urine WBC Clumps Ur Squamous Epith Cells Urine Bacteria Hyaline Casts Urine Mucus Urine Opiates Screen Ur Barbiturates Screen Ur Phencyclidine Scrn Ur Amphetamines Screen U Benzodiazepines Scrn Urine Cocaine Screen U Marijuana (THC) Screen Ethyl Alcohol COVID-19 ([facility]) COVID-19 Clin Com 01/14/21 01/14/21 01/14/21 15:42 15:42 15:42 MCV MCH MCHC RDW Plt Count MPV Immature Gran % (Auto) Neut % (Auto) Lymph % (Auto) [place] % (Auto) Eos % (Auto) Baso % (Auto) Lymph # (Auto) [place] # (Auto) Eos # (Auto) Baso # (Auto) Abs Immat Gran (auto) Absolute Neuts (auto) Absolute Nucleated RBC Nucleated RBC % (auto) Smear Tech's Comments PT INR APTT VBG pH VBG pCO2 VBG pO2 VBG HCO3 VBG O2 Saturation VBG Base Excess Anion Gap Estim Creat Clear Calc Estimated GFR POC Glucose Random Glucose Lactic Acid 2.1 H* Lactic Acid Fup @ 2Hr Calcium Magnesium 1.9 Total Bilirubin 0.3 Direct Bilirubin < 0.2 AST 26 ALT 17 Alkaline Phosphatase 67 Total Creatine Kinase 91 Troponin I High Sens < 3.5 Total Protein 6.4 L Albumin 3.9 Lipase 45 Urine Color Urine Appearance Urine pH Ur Specific Reyno Urine Protein Urine Glucose (UA) Urine Ketones Urine Blood Urine Nitrite Ur Leukocyte Esterase Urine RBC Urine WBC Urine WBC Clumps Ur Squamous Epith Cells Urine Bacteria Hyaline Casts Urine Mucus Urine Opiates Screen Ur Barbiturates Screen Ur Phencyclidine Scrn Ur Amphetamines Screen U Benzodiazepines Scrn Urine Cocaine Screen U Marijuana (THC) Screen Ethyl Alcohol COVID-19 ([facility]) COVID-19 Clin Com 01/14/21 01/14/21 01/14/21 15:45 15:45 15:45 MCV MCH MCHC RDW Plt Count MPV Immature Gran % (Auto) Neut % (Auto) Lymph % (Auto) [place] % (Auto) Eos % (Auto) Baso % (Auto) Lymph # (Auto) [place] # (Auto) Eos # (Auto) Baso # (Auto) Abs Immat Gran (auto) Absolute Neuts (auto) Absolute Nucleated RBC Nucleated RBC % (auto) Smear Tech's Comments PT 12.7 INR 1.1 APTT 26.2 VBG pH VBG pCO2 VBG pO2 VBG HCO3 VBG O2 Saturation VBG Base Excess Anion Gap Estim Creat Clear Calc Estimated GFR POC Glucose Random Glucose Lactic Acid Lactic Acid Fup @ 2Hr Calcium Magnesium Total Bilirubin Direct Bilirubin AST ALT Alkaline Phosphatase Total Creatine Kinase Troponin I High Sens Total Protein Albumin Lipase Urine Color Urine Appearance Urine pH Ur Specific Reyno Urine Protein Urine Glucose (UA) Urine Ketones Urine Blood Urine Nitrite Ur Leukocyte Esterase Urine RBC Urine WBC Urine WBC Clumps Ur Squamous Epith Cells Urine Bacteria Hyaline Casts Urine Mucus Urine Opiates Screen Ur Barbiturates Screen Ur Phencyclidine Scrn Ur Amphetamines Screen U Benzodiazepines Scrn Urine Cocaine Screen U Marijuana (THC) Screen Ethyl Alcohol < 10 COVID-19 ([facility]) Negative COVID-19 Clin Com See Note 01/14/21 01/14/21 01/14/21 15:45 16:36 16:36 MCV MCH MCHC RDW Plt Count MPV Immature Gran % (Auto) Neut % (Auto) Lymph % (Auto) [place] % (Auto) Eos % (Auto) Baso % (Auto) Lymph # (Auto) [place] # (Auto) Eos # (Auto) Baso # (Auto) Abs Immat Gran (auto) Absolute Neuts (auto) Absolute Nucleated RBC Nucleated RBC % (auto) Smear Tech's Comments PT INR APTT VBG pH 7.21 L VBG pCO2 60 VBG pO2 222 VBG HCO3 24 VBG O2 Saturation 99.0 VBG Base Excess -4.0 Anion Gap Estim Creat Clear Calc Estimated GFR POC Glucose Random Glucose Lactic Acid Lactic Acid Fup @ 2Hr Calcium Magnesium Total Bilirubin Direct Bilirubin AST ALT Alkaline Phosphatase Total Creatine Kinase Troponin I High Sens Total Protein Albumin Lipase Urine Color YELLOW Urine Appearance CLEAR Urine pH 5.5 Ur Specific Reyno >= 1.030 H Urine Protein 1+ H Urine Glucose (UA) NEG Urine Ketones NEG Urine Blood TRACE Urine Nitrite POS H Ur Leukocyte Esterase 1+ H Urine RBC 1-4 Urine WBC 15-29 H Urine WBC Clumps NOTED Ur Squamous Epith Cells TRACE Urine Bacteria 2+ Hyaline Casts 0-2 Urine Mucus TRACE Urine Opiates Screen POSITIVE H Ur Barbiturates Screen Not Detected Ur Phencyclidine Scrn Not Detected Ur Amphetamines Screen Not Detected U Benzodiazepines Scrn POSITIVE H Urine Cocaine Screen Not Detected U Marijuana (THC) Screen Not Detected Ethyl Alcohol COVID-19 ([facility]) COVID-19 [email or web address] 01/14/21 18:51 MCV MCH MCHC RDW Plt Count MPV Immature Gran % (Auto) Neut % (Auto) Lymph % (Auto) [place] % (Auto) Eos % (Auto) Baso % (Auto) Lymph # (Auto) [place] # (Auto) Eos # (Auto) Baso # (Auto) Abs Immat Gran (auto) Absolute Neuts (auto) Absolute Nucleated RBC Nucleated RBC % (auto) Smear Tech's Comments PT INR APTT VBG pH VBG pCO2 VBG pO2 VBG HCO3 VBG O2 Saturation VBG Base Excess Anion Gap Estim Creat Clear Calc Estimated GFR POC Glucose Random Glucose Lactic Acid Lactic Acid Fup @ 2Hr 1.2 Calcium Magnesium Total Bilirubin Direct Bilirubin AST ALT Alkaline Phosphatase Total Creatine Kinase Troponin I High Sens Total Protein Albumin Lipase Urine Color Urine Appearance Urine pH Ur Specific Reyn[place] Urine Protein Urine Glucose (UA) Urine Ketones Urine Blood Urine Nitrite Ur Leukocyte Esterase Urine RBC Urine WBC Urine WBC Clumps Ur Squamous Epith Cells Urine Bacteria Hyaline Casts Urine Mucus Urine Opiates Screen Ur Barbiturates Screen Ur Phencyclidine Scrn Ur Amphetamines Screen U Benzodiazepines Scrn Urine Cocaine Screen U Marijuana (THC) Screen Ethyl Alcohol COVID-19 ([facility]) COVID-19 Clin Com Imaging Radiologist's Impressions: Impressions Abdomen/Pelvis CT 01/14/21 15:25 IMPRESSION: 1. No evidence of acute injury to the chest, abdomen or pelvis. 2. As discussed above, evaluation of the lungs is extremely limited due to motion artifact. There may be underlying interstitial lung disease and respiratory bronchiolitis. However, close clinical correlation is requested and repeat CT imaging would be needed for clarification of findings. 3. Cardiomegaly and prominent atherosclerotic calcifications. 4. Status post thyroidectomy, right mastectomy, cholecystectomy with resultant mild biliary dilatation. 5. Tiny fat-containing umbilical hernia. Cervical Spine CT 01/14/21 15:25 IMPRESSION: Negative acute noncontrast CT of the brain. Small air-fluid level in the right maxillary sinus No fracture or dislocation of the cervical spine. Chest CT 01/14/21 15:25 IMPRESSION: 1. No evidence of acute injury to the chest, abdomen or pelvis. 2. As discussed above, evaluation of the lungs is extremely limited due to motion artifact. There may be underlying interstitial lung disease and respiratory bronchiolitis. However, close clinical correlation is requested and repeat CT imaging would be needed for clarification of findings. 3. Cardiomegaly and prominent atherosclerotic calcifications. 4. Status post thyroidectomy, right mastectomy, cholecystectomy with resultant mild biliary dilatation. 5. Tiny fat-containing umbilical hernia. Head CT 01/14/21 15:25 IMPRESSION: Negative acute noncontrast CT of the brain. Small air-fluid level in the right maxillary sinus No fracture or dislocation of the cervical spine. Assessment and Plan (1) Acute respiratory failure with hypoxia: Status: Acute 60-year-old with a significant past medical history in acute hypoxic respiratory failure likely from illegal use of opiates Neuro: AMS, she is intubated And sedated. Does open eyes randomly. Cardiac: No acute issues Pulmonary: Acute hypoxic respiratory failure- patient?s saturations in the 40s according to EMS, required emergent intubation on the field. Toxicology showed opiates. In the [place] controlled substance website does not show patient having prescribed opiates. does admit for to patient having history of obtaining oxycodone in the street. This is likely the cause of patient?s sudden worsening in respiratory status. We will attempt to extubate tomorrow. Continue Unasyn for possible aspiration event Renal: No acute issues Endo: Diabetes mellitus: monitor blood glucose closely ID: no acute issues GI: No acute issues. Heme/Onc: Chronic thrombocytopenia: platelets 122, stable at this time. Psych: No acute issues. Miscellaneous: No acute issues. Prophylaxis: Subcu heparin. IV Protonix Diet: NPO Code status: full code Critical care time: x 60 minutes of critical care (2) Thrombocytopenia: Status: Acute (3) Respiratory arrest: Status: Acute Critical Care Time Critical Care Time (minutes): 60
[2021-01-14 20:17] LABS: VBG Base Excess 1.6 mmol/L; VBG HCO3 29 mmol/L (22-26); VBG pCO2 62 mmHg; VBG pH 7.28 (7.32-7.43); VBG pO2 60 mmHg
[2021-01-14] MEDS: Famotidine/PF 20 MG/2 ML VIAL IVPUSH (21:42)
[2021-01-14] MEDS: Furosemide 20 MG/2 ML VIAL IVPUSH (22:12)
[2021-01-14] MEDS: Ampicillin Sodium/Sulbactam Na 3 GM in 0.9 % Sodium Chloride 100 ML IV (22:12)
[2021-01-14 23:26] LABS: Venous Blood Gas Refer to POC result
[2021-01-14 23:47] LABS: Glucose, Whole Blood 86 mg/dL (60-115)
[2021-01-15] VITALS (18 sets, daily range): BP systolic 92–184; BP diastolic 45–77; PULSE 56–98; RESP 12–23; TEMP 36.4–38.6; O2SAT 90–100; BMI 27.2; BMI 27.1
[2021-01-15] MEDS: Dextrose 5 % 1,000 ML 50 ML IVCONT ×2 (00:04→16:39)
[2021-01-15] MEDS: fentaNYL citrate/PF 100 MCG/2 ML VIAL 50 MCG IVPUSH (00:24)
[2021-01-15] MEDS: Heparin Sodium,Porcine 5,000 UNIT/ML VIAL 5000 UNIT SUBCUT ×3 (02:23→17:07)
--- NOTE | 2021-01-15 02:44 | PC.NURSE ---
Propofol shut off at 0205 and patient was placed on pressure support. Patient tolerating pressure support, alert and following commands. Extubated at 0213 and placed on 2LNC.
[2021-01-15] MEDS: Ampicillin Sodium/Sulbactam Na 3 GM in 0.9 % Sodium Chloride 100 ML IV ×4 (04:57→22:40)
[2021-01-15 05:12] LABS: VBG Base Excess 3.9 mmol/L; VBG HCO3 30 mmol/L (22-26); VBG pCO2 52 mmHg; VBG pH 7.36 (7.32-7.43); VBG pO2 47 mmHg
[2021-01-15 05:18] LABS: Venous Blood Gas Refer to POC result
[2021-01-15 05:29] LABS: MANUAL DIFF FLAG NO
[2021-01-15 05:32] LABS: Basophils Percent Auto 0.4 % (0-2); Eosinophils Absolute Auto 0.2 X10*3/uL (0.0-0.4); Eosinophils Percent Auto 1.6 % (0-4); Hematocrit 32.9 % (37-47); Hemoglobin 10.8 g/dl (12.0-16.0); Imm Gran Abs Auto 0.03 X10*3/uL (0.00-0.03); Imm Gran Pct Auto 0.3 % (0.0-0.4); Lymphocytes Absolute Auto 1.3 X10*3/uL (1.2-4.9); Lymphocytes Percent Auto 12.7 % (20-40); Mean Corpuscular HGB Conc 32.8 g/dl (31.0-35.0); Mean Corpuscular Hemoglobin 28.6 pg (27.0-33.0); Mean Corpuscular Volume 87.3 fL (80-98); Mean Platelet Volume 12.2 fL (9.4-12.3); Monocytes Absolute Auto 0.6 X10*3/uL (0.1-1.2); Monocytes Percent Auto 6.1 % (2-11); Neutrophils Absolute Auto 8.1 X10*3/uL (2.0-8.3); Neutrophils Percent Auto 78.9 % (45-73); Platelet Count 107 X10*3/uL (160-400); Red Blood Count 3.77 X10*6/uL (4.20-5.50); Red Cell Distribution Width 12.7 % (11.0-16.0); White Blood Count 10.3 X10*3/uL (4.8-10.8)
[2021-01-15 06:01] LABS: Alanine Aminotransferase 38 U/L (0-31); Albumin Level 3.7 g/dL (3.5-5.0); Alkaline Phosphatase 81 U/L (39-117); Anion Gap 9 (12-20); Aspartate Amino Transferase 57 U/L (5-31); Bilirubin Total 0.8 mg/dL (0.0-1.0); Blood Urea Nitrogen 9 mg/dL (9-16); Calcium 8.3 mg/dL (8.4-10.2); Carbon Dioxide 28 mmol/L (22-29); Chloride 109 mmol/L (96-108); Creatinine Clr Calc Pharmacy 86.3; Estimated Glomerular Filt Rate > 60; Glucose Random 88 mg/dL (60-115); Magnesium 1.9 mg/dL (1.6-2.6); Phosphorus 3.2 mg/dL (2.7-4.5); Potassium 3.8 mmol/L (3.3-5.1); Sodium 142 mmol/L (135-145)
--- NOTE | 2021-01-15 07:56 | PC.NURSE ---
Pt A&Cong3, digital marketing project manager utilized on ipad, reviewed events that led to hospitalization, pt states took a few sips of red bull in the bathroom at the baseball game and when she walked outside-she doesn't remember anything, denies taking any illicit substances. Instructed to not remove IV's / medical devices etc. Pt remined that she now has a temperature and we are treating her w/ ABX. Pt passed swallow eval. and is drinking coffee at this time. On 2L/min NC SaO2 97%, lungs clear except RUL expiratory rhonchi noted. REcliner locked, chair alarm on, IV D5W RUNNING AT 50ml/hr, call davis in reach.
[2021-01-15] MEDS: Famotidine/PF 20 MG/2 ML VIAL IVPUSH ×2 (09:05→20:52)
--- NOTE | 2021-01-15 09:12 | P.PNCC_ITS ---
Subjective Subjective Date of Service: 01/15/21 Interval History: 60-year-old lady with underlying history of diabetes mellitus, anxiety, thrombocytopenia, postsurgical hypothyroidism admitted on 01/14/2021 with what appears to be an aspiration event with opioid intoxication, intubated in the field. on ER evaluation her CT head was negative for an acute intracranial process. She has been started on empiric antibiotics and transferred to intensive care unit. Patient has been extubated early a.m. on 01/15/2021. No events overnight. Critical Care Time (minutes): 0 Physical Exam Vital Signs: Vital Signs: Last Vital Signs Temp 101.5 F H 01/15/21 09:00 Pulse 75 01/15/21 09:00 Resp 12 01/15/21 09:00 BP 117/52 L 01/15/21 09:00 Pulse Ox 98 01/15/21 09:00 Body Mass Index 27.1 Const: General: no acute distress, alert and awake Eyes: Sclerae: sclerae normal EOM: EOMs intact bilaterally Neck: Neck: Yes no lymphadenopathy, Yes trachea midline and Yes supple Resp: Effort & Inspection: normal respiratory effort and no respiratory distress Auscultation: clear to auscultation bilaterally Cardio: Rate: regular rate Rhythm: regular rhythm Heart sounds: no gallops, no murmurs and no rubs GI: Palpation (GI): Soft to palpation and Other GI palpation findings present ( Nontender) Auscultation: normal bowel sounds Extrem: General: Yes no pedal edema, No clubbing and No cyanosis Objective Data Labs CBC & Chem 7: 01/15/21 05:07 01/15/21 05:07 Labs: Laboratory Results - last 24 hr 01/14/21 01/14/21 01/14/21 15:36 15:42 15:42 WBC 6.9 RBC 4.08 L Hgb 11.5 L Hct 35.4 L MCV 86.8 MCH 28.2 MCHC 32.5 RDW 12.6 Plt Count 122 L D MPV 12.0 Immature Gran % (Auto) 0.6 H Neut % (Auto) 73.1 H Lymph % (Auto) 19.5 L [place] % (Auto) 4.5 Eos % (Auto) 1.7 Baso % (Auto) 0.6 Lymph # (Auto) 1.4 [place] # (Auto) 0.3 Eos # (Auto) 0.1 Baso # (Auto) 0.0 Abs Immat Gran (auto) 0.04 H Absolute Neuts (auto) 5.1 Absolute Nucleated RBC 0.000 Nucleated RBC % (auto) 0.0 Smear Tech's Comments VERIFIED PT INR APTT VBG pH VBG pCO2 VBG pO2 VBG HCO3 VBG O2 Saturation VBG Base Excess Sodium 144 Potassium 3.5 Chloride 110 H Carbon Dioxide 26 Anion Gap 12 BUN 9 Creatinine 0.92 Estim Creat Clear Calc 63.8 Estimated GFR > 60 POC Glucose 187 H Random Glucose 202 H D Lactic Acid Lactic Acid Fup @ 2Hr Calcium 9.0 Phosphorus Magnesium Total Bilirubin Direct Bilirubin AST ALT Alkaline Phosphatase Total Creatine Kinase Troponin I High Sens Total Protein Albumin Lipase Urine Color Urine Appearance Urine pH Ur Specific [place] Urine Protein Urine Glucose (UA) Urine Ketones Urine Blood Urine Nitrite Ur Leukocyte Esterase Urine RBC Urine WBC Urine WBC Clumps Ur Squamous Epith Cells Urine Bacteria Hyaline Casts Urine Mucus Urine Opiates Screen Ur Barbiturates Screen Ur Phencyclidine Scrn Ur Amphetamines Screen U Benzodiazepines Scrn Urine Cocaine Screen U Marijuana (THC) Screen Ethyl Alcohol COVID-19 ([facility]) COVID-19 Clin Com 01/14/21 01/14/21 01/14/21 15:42 15:42 15:42 WBC RBC Hgb Hct MCV MCH MCHC RDW Plt Count MPV Immature Gran % (Auto) Neut % (Auto) Lymph % (Auto) [place] % (Auto) Eos % (Auto) Baso % (Auto) Lymph # (Auto) [place] # (Auto) Eos # (Auto) Baso # (Auto) Abs Immat Gran (auto) Absolute Neuts (auto) Absolute Nucleated RBC Nucleated RBC % (auto) Smear Tech's Comments PT INR APTT VBG pH VBG pCO2 VBG pO2 VBG HCO3 VBG O2 Saturation VBG Base Excess Sodium Potassium Chloride Carbon Dioxide Anion Gap BUN Creatinine Estim Creat Clear Calc Estimated GFR POC Glucose Random Glucose Lactic Acid 2.1 H* Lactic Acid Fup @ 2Hr Calcium Phosphorus Magnesium 1.9 Total Bilirubin 0.3 Direct Bilirubin < 0.2 AST 26 ALT 17 Alkaline Phosphatase 67 Total Creatine Kinase 91 Troponin I High Sens < 3.5 Total Protein 6.4 L Albumin 3.9 Lipase 45 Urine Color Urine Appearance Urine pH Ur Specific [place] Urine Protein Urine Glucose (UA) Urine Ketones Urine Blood Urine Nitrite Ur Leukocyte Esterase Urine RBC Urine WBC Urine WBC Clumps Ur Squamous Epith Cells Urine Bacteria Hyaline Casts Urine Mucus Urine Opiates Screen Ur Barbiturates Screen Ur Phencyclidine Scrn Ur Amphetamines Screen U Benzodiazepines Scrn Urine Cocaine Screen U Marijuana (THC) Screen Ethyl Alcohol COVID-19 ([facility]) COVID-19 [employer] 01/14/21 01/14/21 01/14/21 15:45 15:45 15:45 WBC RBC Hgb Hct MCV MCH MCHC RDW Plt Count MPV Immature Gran % (Auto) Neut % (Auto) Lymph % (Auto) [place] % (Auto) Eos % (Auto) Baso % (Auto) Lymph # (Auto) [place] # (Auto) Eos # (Auto) Baso # (Auto) Abs Immat Gran (auto) Absolute Neuts (auto) Absolute Nucleated RBC Nucleated RBC % (auto) Smear Tech's Comments PT 12.7 INR 1.1 APTT 26.2 VBG pH VBG pCO2 VBG pO2 VBG HCO3 VBG O2 Saturation VBG Base Excess Sodium Potassium Chloride Carbon Dioxide Anion Gap BUN Creatinine Estim Creat Clear Calc Estimated GFR POC Glucose Random Glucose Lactic Acid Lactic Acid Fup @ 2Hr Calcium Phosphorus Magnesium Total Bilirubin Direct Bilirubin AST ALT Alkaline Phosphatase Total Creatine Kinase Troponin I High Sens Total Protein Albumin Lipase Urine Color Urine Appearance Urine pH Ur Specific [place] Urine Protein Urine Glucose (UA) Urine Ketones Urine Blood Urine Nitrite Ur Leukocyte Esterase Urine RBC Urine WBC Urine WBC Clumps Ur Squamous Epith Cells Urine Bacteria Hyaline Casts Urine Mucus Urine Opiates Screen Ur Barbiturates Screen Ur Phencyclidine Scrn Ur Amphetamines Screen U Benzodiazepines Scrn Urine Cocaine Screen U Marijuana (THC) Screen Ethyl Alcohol < 10 COVID-19 ([facility]) Negative COVID-19 Clin Com See Note 01/14/21 01/14/21 01/14/21 15:45 16:36 16:36 WBC RBC Hgb Hct MCV MCH MCHC RDW Plt Count MPV Immature Gran % (Auto) Neut % (Auto) Lymph % (Auto) [place] % (Auto) Eos % (Auto) Baso % (Auto) Lymph # (Auto) [place] # (Auto) Eos # (Auto) Baso # (Auto) Abs Immat Gran (auto) Absolute Neuts (auto) Absolute Nucleated RBC Nucleated RBC % (auto) Smear Tech's Comments PT INR APTT VBG pH 7.21 L VBG pCO2 60 VBG pO2 222 VBG HCO3 24 VBG O2 Saturation 99.0 VBG Base Excess -4.0 Sodium Potassium Chloride Carbon Dioxide Anion Gap BUN Creatinine Estim Creat Clear Calc Estimated GFR POC Glucose Random Glucose Lactic Acid Lactic Acid Fup @ 2Hr Calcium Phosphorus Magnesium Total Bilirubin Direct Bilirubin AST ALT Alkaline Phosphatase Total Creatine Kinase Troponin I High Sens Total Protein Albumin Lipase Urine Color YELLOW Urine Appearance CLEAR Urine pH 5.5 Ur Specific [place] >= 1.030 H Urine Protein 1+ H Urine Glucose (UA) NEG Urine Ketones NEG Urine Blood TRACE Urine Nitrite POS H Ur Leukocyte Esterase 1+ H Urine RBC 1-4 Urine WBC 15-29 H Urine WBC Clumps NOTED Ur Squamous Epith Cells TRACE Urine Bacteria 2+ Hyaline Casts 0-2 Urine Mucus TRACE Urine Opiates Screen POSITIVE H Ur Barbiturates Screen Not Detected Ur Phencyclidine Scrn Not Detected Ur Amphetamines Screen Not Detected U Benzodiazepines Scrn POSITIVE H Urine Cocaine Screen Not Detected U Marijuana (THC) Screen Not Detected Ethyl Alcohol COVID-19 ([facility]) COVID-19 Clin [facility] 01/14/21 01/14/21 01/14/21 18:51 20:10 23:43 WBC RBC Hgb Hct MCV MCH MCHC RDW Plt Count MPV Immature Gran % (Auto) Neut % (Auto) Lymph % (Auto) [place] % (Auto) Eos % (Auto) Baso % (Auto) Lymph # (Auto) [place] # (Auto) Eos # (Auto) Baso # (Auto) Abs Immat Gran (auto) Absolute Neuts (auto) Absolute Nucleated RBC Nucleated RBC % (auto) Smear Tech's Comments PT INR APTT VBG pH 7.28 L VBG pCO2 62 VBG pO2 60 VBG HCO3 29 H VBG O2 Saturation 83.0 VBG Base Excess 1.6 Sodium Potassium Chloride Carbon Dioxide Anion Gap BUN Creatinine Estim Creat Clear Calc Estimated GFR POC Glucose 86 Random Glucose Lactic Acid Lactic Acid Fup @ 2Hr 1.2 Calcium Phosphorus Magnesium Total Bilirubin Direct Bilirubin AST ALT Alkaline Phosphatase Total Creatine Kinase Troponin I High Sens Total Protein Albumin Lipase Urine Color Urine Appearance Urine pH Ur Specific [place] Urine Protein Urine Glucose (UA) Urine Ketones Urine Blood Urine Nitrite Ur Leukocyte Esterase Urine RBC Urine WBC Urine WBC Clumps Ur Squamous Epith Cells Urine Bacteria Hyaline Casts Urine Mucus Urine Opiates Screen Ur Barbiturates Screen Ur Phencyclidine Scrn Ur Amphetamines Screen U Benzodiazepines Scrn Urine Cocaine Screen U Marijuana (THC) Screen Ethyl Alcohol COVID-19 ([facility]) COVID-19 [employer] Com 01/15/21 01/15/21 01/15/21 05:05 05:07 05:07 WBC 10.3 RBC 3.77 L Hgb 10.8 L Hct 32.9 L MCV 87.3 MCH 28.6 MCHC 32.8 RDW 12.7 Plt Count 107 L MPV 12.2 Immature Gran % (Auto) 0.3 Neut % (Auto) 78.9 H Lymph % (Auto) 12.7 L [place] % (Auto) 6.1 Eos % (Auto) 1.6 Baso % (Auto) 0.4 Lymph # (Auto) 1.3 [place] # (Auto) 0.6 Eos # (Auto) 0.2 Baso # (Auto) 0.0 Abs Immat Gran (auto) 0.03 Absolute Neuts (auto) 8.1 Absolute Nucleated RBC 0.000 Nucleated RBC % (auto) 0.0 Smear Tech's Comments PT INR APTT VBG pH 7.36 VBG pCO2 52 VBG pO2 47 VBG HCO3 30 H VBG O2 Saturation 77.0 VBG Base Excess 3.9 Sodium 142 Potassium 3.8 Chloride 109 H Carbon Dioxide 28 Anion Gap 9 L BUN 9 Creatinine 0.69 Estim Creat Clear Calc 86.3 Estimated GFR > 60 POC Glucose Random Glucose 88 D Lactic Acid Lactic Acid Fup @ 2Hr Calcium 8.3 L D Phosphorus 3.2 Magnesium 1.9 Total Bilirubin 0.8 Direct Bilirubin AST 57 H ALT 38 H Alkaline Phosphatase 81 D Total Creatine Kinase Troponin I High Sens Total Protein 6.0 L Albumin 3.7 Lipase Urine Color Urine Appearance Urine pH Ur Specific [place] Urine Protein Urine Glucose (UA) Urine Ketones Urine Blood Urine Nitrite Ur Leukocyte Esterase Urine RBC Urine WBC Urine WBC Clumps Ur Squamous Epith Cells Urine Bacteria Hyaline Casts Urine Mucus Urine Opiates Screen Ur Barbiturates Screen Ur Phencyclidine Scrn Ur Amphetamines Screen U Benzodiazepines Scrn Urine Cocaine Screen U Marijuana (THC) Screen Ethyl Alcohol COVID-19 ([facility]) COVID-19 Clin Com Microbiology Microbiology Results: Microbiology 01/14/21 16:36 Blood - Venous Blood Culture - Preliminary Progress Note: A&P Assessment and plan (1) Acute respiratory failure with hypoxia: Status: Acute Assessment and Plan: Assessment: 60-year-old lady with underlying diabetes mellitus post surgical hypothyroidism admitted with acute hypoxic respiratory failure secondary to aspiration event and opioid intoxication, also to have urinary tract infection present on admission. Plan: Neuro: No acute issues. Cardiac: No acute issues. Pulmonary: Acute hypoxic respiratory failure secondary to an aspiration event, likely secondary to an opioid and x-ray K orozco, initially requiring intubation and ventilatory support, extubated early a.m. on 01/15/2021. Renal: No acute issues. Endo: No acute issues. Underlying diabetes mellitus and hypothyroidism. GI: No acute issues. ID: Aspiration pneumonitis versus pneumonia and UTI. Cultures are pending. Empirically covered with Unasyn. Heme/Onc: No acute issues. Psych: No acute issues. Miscellaneous: No acute issues. Prophylaxis: Heparin Diet: diabetic (2) Thrombocytopenia: Status: Acute (3) UTI (urinary tract infection): Status: Acute (4) Diabetes type 2, controlled: Status: Acute (5) Hypothyroidism: Status: Acute Quality Stroke Does the patient have a stroke diagnosis?: No VTE Prior VTE?: No VTE Risk Level:: Medical - moderate - high VTE Device Contraindication: Treatment Not Indicated VTE Drug Contraindication: N/A - Med Ordered
[2021-01-15 11:12] LABS: Glucose, Whole Blood 87 mg/dL (60-115)
[2021-01-15] MEDS: Acetaminophen 325 MG TABLET 650 MG PO ×2 (11:34→17:55)
--- NOTE | 2021-01-15 13:45 | MHC.CM.PN ---
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 D/C PLAN: HOME W/RESUMP OF VNA/SOLAR INSTALLATION MANAGER HRS, FAMILY FOR TRANSPORT PCP: NANCY GÓMEZ HCP: DHIRAJ TRAVIS [phone]
[2021-01-15 16:18] LABS: Glucose, Whole Blood 113 mg/dL (60-115)
[2021-01-15 20:52] LABS: Glucose, Whole Blood 109 mg/dL (60-115)
[2021-01-15] MEDS: clonazePAM 1 MG TABLET 2 MG PO (20:52)
[2021-01-15 21:04] LABS: Glucose, Whole Blood 115 mg/dL (60-115)
[2021-01-16] MEDS: Heparin Sodium,Porcine 5,000 UNIT/ML VIAL 5000 UNIT SUBCUT ×2 (02:41→09:48)
[2021-01-16 03:16] VITALS: BP 179/75; PULSE 63; RESP 18; TEMP 36.8; O2SAT 95
[2021-01-16 04:00] VITALS: PULSE 66; RESP 16
[2021-01-16] MEDS: Ampicillin Sodium/Sulbactam Na 3 GM in 0.9 % Sodium Chloride 100 ML IV ×2 (05:39→11:22)
[2021-01-16] MEDS: Levothyroxine Sodium 150 MCG TABLET PO (05:42)
[2021-01-16 05:47] VITALS: BMI 27.6
[2021-01-16 06:40] LABS: MANUAL DIFF FLAG NO
--- NOTE | 2021-01-16 06:45 | PC.NURSE ---
CARE ASSUMED 23:15...AWAKE..ALERT..[place] SPEAKING...STAFF OUTSIDE COLLECTOR PRESENT...RESPIRATIONS EASY...SAO2 89-90% ROOM AIR...95% O2 2 L/M...INTERMITTANTLY PULLS OFF O2..NO DISTRESS ROOM AIR...OOB BR TO VOID STEADY GAIT...DISLODGE IV RIGHT HAND..NEW #22 ANGIO STARTED LEFT ARM...CONTINUES D5W 50 CC/HR...NSR..NO ECTOPY
[2021-01-16 06:50] LABS: Basophils Absolute Auto 0.1 X10*3/uL (0.0-0.2); Basophils Percent Auto 0.6 % (0-2); Eosinophils Absolute Auto 0.2 X10*3/uL (0.0-0.4); Eosinophils Percent Auto 2.9 % (0-4); Hematocrit 32.4 % (37-47); Imm Gran Abs Auto 0.03 X10*3/uL (0.00-0.03); Imm Gran Pct Auto 0.4 % (0.0-0.4); Lymphocytes Absolute Auto 1.3 X10*3/uL (1.2-4.9); Lymphocytes Percent Auto 15.7 % (20-40); Mean Corpuscular Hemoglobin 28.6 pg (27.0-33.0); Mean Corpuscular Volume 84.4 fL (80-98); Mean Platelet Volume 12.7 fL (9.4-12.3); Monocytes Absolute Auto 0.5 X10*3/uL (0.1-1.2); Monocytes Percent Auto 6.2 % (2-11); Neutrophils Absolute Auto 6.1 X10*3/uL (2.0-8.3); Neutrophils Percent Auto 74.2 % (45-73); Platelet Count 122 X10*3/uL (160-400); Red Blood Count 3.84 X10*6/uL (4.20-5.50); Red Cell Distribution Width 12.5 % (11.0-16.0); White Blood Count 8.2 X10*3/uL (4.8-10.8)
[2021-01-16 07:22] LABS: Anion Gap 10 (12-20); Blood Urea Nitrogen 7 mg/dL (9-16); Calcium 8.8 mg/dL (8.4-10.2); Carbon Dioxide 27 mmol/L (22-29); Chloride 107 mmol/L (96-108); Creatinine Clr Calc Pharmacy 84.5; Estimated Glomerular Filt Rate > 60; Glucose Random 128 mg/dL (60-115); Sodium 140 mmol/L (135-145)
[2021-01-16 07:39] LABS: Glucose, Whole Blood 125 mg/dL (60-115)
[2021-01-16] MEDS: Aspirin Enteric Coated 81 MG TABLET.DR PO (07:50)
[2021-01-16] MEDS: Escitalopram Oxalate 20 MG TABLET PO (07:50)
[2021-01-16] MEDS: clonazePAM 0.5 MG TABLET PO (07:50)
[2021-01-16] MEDS: Famotidine/PF 20 MG/2 ML VIAL IVPUSH (07:50)
[2021-01-16] MEDS: SITagliptin Phosphate 100 MG TABLET PO (07:50)
[2021-01-16] MEDS: Atorvastatin Calcium 40 MG TABLET PO (07:50)
[2021-01-16 08:00] VITALS: BP 121/65; PULSE 69; RESP 20; TEMP 36.3; O2SAT 94
[2021-01-16] MEDS: Baclofen 10 MG TABLET PO (09:48)
--- NOTE | 2021-01-16 11:22 | MHC.CM.PN ---
Per ROUNDS discussion, Patient will be medically cleared for dc to home today, with services. A new referral has been made to [facility] and they have been made aware of today's dc. [facility] services should resume as before.Patient/Son/HCP/DHIRAJ @ [phone] are aware of and in agreement with the dc plan.
[2021-01-16 11:28] LABS: Glucose, Whole Blood 129 mg/dL (60-115)
[2021-01-16 11:50] VITALS: BP 109/64; PULSE 68; RESP 20; TEMP 36.8; O2SAT 96
--- NOTE | 2021-01-16 13:05 | P.DS_ITS ---
DS: Providers Provider Date of Service: 01/16/21 Date of admission: 01/14/21 17:28 Primary care physician: [facility] DS: Diagnosis Discharge Diagnosis (1) Acute respiratory failure with hypoxia: Status: Acute (2) Thrombocytopenia: Status: Acute (3) UTI (urinary tract infection): Status: Acute (4) Diabetes type 2, controlled: Status: Acute (5) Hypothyroidism: Status: Acute DS: Medications Discharge Medications Home Medications: Home Medications Medication Instructions Recorded Confirmed albuterol sulfate 90 mcg/actuation 2 puff INHALATION Q6H PRN 05/27/20 01/15/21 aerosol inhaler aspirin 81 mg tablet,delayed 81 mg PO DAILY 05/27/20 01/15/21 release atorvastatin 40 mg tablet 40 mg PO DAILY 05/27/20 01/15/21 cholecalciferol (vitamin D3) 25 25 mcg PO DAILY 05/27/20 01/15/21 mcg (1,000 unit) capsule clonazepam 0.5 mg tablet 0.5 mg PO DAILY 05/27/20 01/15/21 clonazepam 2 mg tablet 2 mg PO DAILY 05/27/20 01/15/21 escitalopram oxalate 20 mg tablet 20 mg PO DAILY 05/27/20 01/15/21 fluticasone propionate 110 1 puff INHALATION BID 05/27/20 01/15/21 mcg/actuation HFA aerosol inhaler lanolin alcohols-mineral 1 applic TOPICAL DAILY 05/27/20 01/15/21 oil-w.petrolatum-ceresin topical cream sennosides 8.6 mg tablet 8.6 mg PO DAILY 05/27/20 01/15/21 Previous Rx's Medication Instructions Recorded baclofen 10 mg tablet 10 mg PO BID PRN #60 tab 08/16/20 tramadol 50 mg tablet 50 mg PO Q6H #120 tab 08/17/20 levothyroxine 150 mcg tablet 150 mcg PO DAILY 30 Days #30 tab 01/06/21 sitagliptin 100 mg tablet 100 mg PO DAILY #30 tab 01/06/21 amoxicillin-pot clavulanate 1 tab PO Q12H #14 tab 01/16/21 [Augmentin] DS: Summary Hospital Course Hospital Course: Patient was admitted for toxic encephalopathy complicated by acute hypoxic respiratory failure due to aspiration pneumonia complicated by severe sepsis. Patient required intubation, but was able to be extubated by the next day. She was treated with Unasyn. She did have a positive UA with Ecoli bacturia, unclear significance. Blood culture growing Gram-positive cocci, most likely contaminant. Should be followed up. Patient also noted to have 5 beat NSVT. ideally patient would have stated to be monitored toe she was 36-48 hours afebrile ( has only been 24 hours) and for inpatient workup for her NSVT (risks were explained, and patient demonstrated understanding). however, patient did not want to stay. Therefore, she will be discharged home on Augmentin and given referral for cardiology follow-up as outpatient. Time Spent with Patient Time attestation: Total time spent providing and/or coordinating discharge services: Discharge coordination time: Greater than 30 minutes Quality: Stroke Does the patient have a stroke diagnosis?: No Physical Exam Vital Signs: Vital Signs: Last Vital Signs Temp 98.3 F 01/16/21 11:50 Pulse 68 01/16/21 11:50 Resp 20 01/16/21 11:50 BP 109/64 01/16/21 11:50 Pulse Ox 96 01/16/21 11:50 Body Mass Index 27.6 General: AO X 3, no acute distress Resp: CTA bilateral CVS: S1,S2,RRR GI: soft, non tender, non distended Neuro: motor grossly intact Psych: appropriate affect DS: Data Data Completed and Pending Labs on day of discharge: Laboratory Results - last 24 hr 01/15/21 01/15/21 01/15/21 16:06 20:28 20:51 WBC RBC Hgb Hct MCV MCH MCHC RDW Plt Count MPV Immature Gran % (Auto) Neut % (Auto) Lymph % (Auto) [place] % (Auto) Eos % (Auto) Baso % (Auto) Lymph # (Auto) [place] # (Auto) Eos # (Auto) Baso # (Auto) Abs Immat Gran (auto) Absolute Neuts (auto) Absolute Nucleated RBC Nucleated RBC % (auto) Sodium Potassium Chloride Carbon Dioxide Anion Gap BUN Creatinine Estim Creat Clear Calc Estimated GFR POC Glucose 113 109 115 Random Glucose Calcium 01/16/21 01/16/21 01/16/21 06:00 06:00 07:29 WBC 8.2 RBC 3.84 L Hgb 11.0 L Hct 32.4 L MCV 84.4 MCH 28.6 MCHC 34.0 RDW 12.5 Plt Count 122 L MPV 12.7 H Immature Gran % (Auto) 0.4 Neut % (Auto) 74.2 H Lymph % (Auto) 15.7 L [place] % (Auto) 6.2 Eos % (Auto) 2.9 Baso % (Auto) 0.6 Lymph # (Auto) 1.3 [place] # (Auto) 0.5 Eos # (Auto) 0.2 Baso # (Auto) 0.1 Abs Immat Gran (auto) 0.03 Absolute Neuts (auto) 6.1 Absolute Nucleated RBC 0.000 Nucleated RBC % (auto) 0.0 Sodium 140 Potassium 4.0 Chloride 107 Carbon Dioxide 27 Anion Gap 10 L BUN 7 L Creatinine 0.71 Estim Creat Clear Calc 84.5 Estimated GFR > 60 POC Glucose 125 H Random Glucose 128 H D Calcium 8.8 D 01/16/21 11:24 WBC RBC Hgb Hct MCV MCH MCHC RDW Plt Count MPV Immature Gran % (Auto) Neut % (Auto) Lymph % (Auto) [place] % (Auto) Eos % (Auto) Baso % (Auto) Lymph # (Auto) [place] # (Auto) Eos # (Auto) Baso # (Auto) Abs Immat Gran (auto) Absolute Neuts (auto) Absolute Nucleated RBC Nucleated RBC % (auto) Sodium Potassium Chloride Carbon Dioxide Anion Gap BUN Creatinine Estim Creat Clear Calc Estimated GFR POC Glucose 129 H Random Glucose Calcium Preliminary micro results at discharge 01/14/21 16:36 Blood Culture - Preliminary Blood - Venous 01/14/21 16:37 Blood Culture - Preliminary Blood - Venous No growth after 24 hours. Discharge Plan Discharge Patient Disposition: Home Health Service Discharge Diagnosis: resp failure, aspiration peneumonia, sepsis, NSVT Referrals: [facility] [Outside] - 1 Week [place],[facility] [Primary Care Provider] - 1 Week Barak Weinberg MD [Physician] - 1 Week (NSVT while in hospital, refused to stay for inpatient work up) Discharge Medications: New amoxicillin-pot clavulanate [Augmentin] 875-125 mg tablet 1 tab PO Q12H Qty: 14 RF: 0 Continued baclofen 10 mg tablet 10 mg PO BID PRN (Reason: spasms) Qty: 60 RF: 4 tramadol 50 mg tablet 50 mg PO Q6H Qty: 120 RF: 5 Eucerin Cream 1 applic topical DAILY RF: 0 aspirin 81 mg tablet,delayed release (DR/EC) 81 mg PO DAILY RF: 0 cholecalciferol (vitamin D3) 25 mcg (1,000 unit) capsule 25 mcg PO DAILY RF: 0 escitalopram oxalate 20 mg tablet 20 mg PO DAILY RF: 0 atorvastatin 40 mg tablet 40 mg PO DAILY RF: 0 sennosides [senna] 8.6 mg tablet 8.6 mg PO DAILY RF: 0 albuterol sulfate 90 mcg/actuation HFA aerosol inhaler 2 puff inhalation Q6H PRN (Reason: Wheezing) RF: 0 Flovent HFA 110 mcg/actuation HFA aerosol inhaler 1 puff inhalation BID RF: 0 clonazepam [Klonopin] 0.5 mg tablet 0.5 mg PO DAILY RF: 0 clonazepam [Klonopin] 2 mg tablet 2 mg PO DAILY RF: 0 levothyroxine 150 mcg tablet 150 mcg PO DAILY 30 Days Qty: 30 RF: 6 Januvia 100 mg tablet 100 mg PO DAILY Qty: 30 RF: 6 Discharge Orders: Discharge Order (Routine); Ordered 01/16/21 Ordered By: Samuel Lockhart Diet: advance to usual diet Activity on Discharge: As tolerated Stand Alone Forms: Patient Portal Discharge page Care Plan Goals: recovery Health Concerns: nsvt, aspiratoin pneuonia Plan of Treatment: 7 days augmentin, follow up cardiology Assessment: see above
== END 2021-01-16 13:52 | disposition home health service (06) | DRG 720 ==
LOC: HO.ED 17:08 → HO.ICU 17:49 → HO.IMC 01-15 14:35
PROVIDERS: Registered Nurse Community Health; Admitting Provider Internal Medicine Pulmonary Disease; Emergency Provider Emergency Medicine; Visit Provider Internal Medicine
DX: A41.9 Sepsis, unspecified organism (principal); J96.01 Acute respiratory failure with hypoxia; J69.0 Pneumonitis due to inhalation of food and vomit; G92 Toxic encephalopathy; D69.6 Thrombocytopenia, unspecified; I47.1 Supraventricular tachycardia; T40.601A Poisoning by unspecified narcotics, accidental (unintentional), initial encounter; R65.20 Severe sepsis without septic shock; N39.0 Urinary tract infection, site not specified; F17.210 Nicotine dependence, cigarettes, uncomplicated; E03.9 Hypothyroidism, unspecified; B96.20 Unspecified Escherichia coli [E. coli] as the cause of diseases classified elsewhere; Z71.6 Tobacco abuse counseling; Z20.822 Contact with and (suspected) exposure to COVID-19; Z88.6 Allergy status to analgesic agent; Z79.51 Long term (current) use of inhaled steroids; Z79.82 Long term (current) use of aspirin; Z79.890 Hormone replacement therapy; Z79.899 Other long term (current) drug therapy
CPT/HCPCS: 36415; 70450; 71250; 72125; 74176; 80048; 80053; 80076; 80307; 81001; 81003; 82077; 82550; 82947; 83605; 83690; 83735; 84100; 84484; 85025; 85610; 85730; 87040; 87086; 87147; 87186; 87205; 87635; 93005; 94002; 94003; 94640; 94644; 99285; C1758; J0295; J1940; J1956; J2543; J2930; J3010; J3475

== ENCOUNTER 2021-03-02 11:23 | Outpatient (REF) | payer MEDICAID, SELFPAY ==
--- NOTE | ~2021-03-02 | MM_ITS ---
EXAMINATION: MM SCREENING DIGITAL BREAST TOMOSYNTHESIS, LEFT CLINICAL INFORMATION: Remote right mastectomy for breast cancer, 1995. Due for yearly. COMPARISON: Mammography: 09/17/2019, 08/28/2017, 06/07/2017, 05/03/2015. TECHNIQUE: Digital breast tomosynthesis is performed in both the craniocaudal and mediolateral oblique views along with computer-aided detection (CAD). Synthesized 2D images are generated from the tomosynthesis. Additional left MLO view is provided. FINDINGS: There are scattered areas of fibroglandular density (ACR BI-RADS breast composition Category b). Breast tissue composition borders on heterogeneously dense. Parenchymal pattern is similar to prior studies. There is no developing density or interval mass or architectural abnormality. No abnormal calcifications. The skin contours are smooth. MM/MM tomosynthesis screening BI IMPRESSION: No mammographic evidence of malignancy. ASSESSMENT: BI-RADS 1: Negative RECOMMENDATION: Routine annual mammography screening. This patient's information was entered into a reminder system with a target due date for their next mammogram.
== END 2021-03-02 11:24 | disposition home or self-care (01) ==
LOC: HO.MAMMO 11:23
PROVIDERS: Visit Provider Internal Medicine
DX: Z12.31 Encounter for screening mammogram for malignant neoplasm of breast (principal)
CPT/HCPCS: 77063; 77067

== ENCOUNTER 2021-04-12 10:44 | Outpatient (REF) | payer MEDICAID, SELFPAY ==
--- NOTE | ~2021-04-12 | MM_ITS ---
EXAMINATION: BONE DENSITOMETRY CLINICAL INDICATION: Other specified disorders of bone density and structure, unspecified site. COMPARISON: Previous BD dated 07/02/2013 and baseline BD dated 05/10/2011. TECHNIQUE: Using a [employer] DXA System (software version: 13.1) manufactured by [employer], dual-energy x-ray absorptiometry was performed of the lumbar spine and left hip. The images are of good technical quality. Summary results are attached. FINDINGS: AP SPINE L1-L4: Current: BMD 0.967 g/cm2, Z-score -0.7, T-score -1.8, osteopenia, 4.8% decrease from previous, 7.1% decrease from baseline (<5% change is not significant). Prior: BMD 1.016 g/cm2. Baseline: BMD 1.041 g/cm2. LEFT FEMUR, NECK: Current: BMD 0.974 g/cm2, Z-score 0.7, T-score -0.5, normal. Prior: BMD 1.020 g/cm2. Baseline: BMD 1.052 g/cm2. LEFT FEMUR, TOTAL: Current: BMD 1.133 g/cm2, Z-score 1.8, T-score 1.0, normal, 0.2% increase from previous, 0.2% increase from baseline (<5% change is not significant). Prior: BMD 1.131 g/cm2. Baseline: BMD 1.131 g/cm2. IDENTIFIED RISK FACTORS: Early menopause, secondary osteoporosis, tobacco use (current smoker), hysterectomy. HISTORY OF FRACTURE: None listed. MEDICATIONS: Calcium supplements or multivitamin, vitamin D. MM/XR DEXA axial skeleton IMPRESSION: 1. DIAGNOSIS: Osteopenia based on the lowest T-score value of -1.8 in the lumbar spine applying World Health Organization criteria. 2. 10-YEAR FRACTURE RISK PREDICTION, FRAX: Major osteoporotic fracture (clinical spine, forearm, hip or shoulder) 3.6%. Hip fracture 0.2%. 3. Treatment Recommendations: NOF guidelines recommend consideration for treatment in postmenopausal women and men age 50 and older presenting with the following: -A hip or vertebral (clinical or morphometric) fracture. -T-score less than or equal to -2.5 at the femoral neck or spine after appropriate evaluation to exclude secondary causes. -Low bone mass at the hip or spine and a 10-year fracture probability by FRAX of greater than or equal to 3% for hip fracture or greater than or equal to 20% for major osteoporotic fracture based on the [place] adapted WHO algorithm. 4. Other Recommendations: All treatment decisions require clinical judgment and consideration of individual patient factors, including patient preferences, comorbidities, previous drug use, risk factors not captured in the FRAX model (e.g. frailty, falls, vitamin D deficiency, increased bone turnover, interval significant decline in bone density) and possible under or overestimation of fracture risk by FRAX. Additional medical evaluation for secondary cause of low bone mineral density may be appropriate. FUTURE SCAN RECOMMENDATION: People with diagnosed cases of osteoporosis or at high risk for fracture should have regular bone mineral density tests. For patients eligible for Medicare, routine testing is allowed once every 2 years. The testing frequency can be increased to one year for patients who have rapidly progressing disease, those who are receiving or discontinuing medical therapy to restore bone mass, or have additional risk factors.
== END 2021-04-12 10:45 | disposition home or self-care (01) ==
LOC: HO.MAMMO 10:44
PROVIDERS: PCP Internal Medicine; Visit Provider Internal Medicine
DX: Z13.820 Encounter for screening for osteoporosis (principal); M85.80 Other specified disorders of bone density and structure, unspecified site; Z78.0 Asymptomatic menopausal state; F17.200 Nicotine dependence, unspecified, uncomplicated; Z79.899 Other long term (current) drug therapy
CPT/HCPCS: 77080

== ENCOUNTER → 2021-07-06 12:46 | Outpatient (BNVA) | payer MEDICAID, SELFPAY | PROVIDERS: PCP Internal Medicine; Visit Provider Internal Medicine | DX: E89.0 Postprocedural hypothyroidism (principal); E55.9 Vitamin D deficiency, unspecified; Z85.850 Personal history of malignant neoplasm of thyroid | CPT/HCPCS: 99212 ==

== ENCOUNTER 2021-07-27 11:27 | Outpatient (REF) | payer MEDICAID, SELFPAY ==
--- NOTE | ~2021-07-27 | US_ITS ---
EXAMINATION: US SOFT TISSUE NECK CLINICAL INFORMATION: Lymph node mapping. COMPARISON: Ultrasound 03/14/2020. TECHNIQUE: Ultrasound of the neck soft tissues was performed with high- frequency perez-scale imaging and color Doppler. FINDINGS: THYROID BED: Prior thyroidectomy. No residual thyroid tissue demonstrated in the thyroid bed. No cystic or solid nodules demonstrated in the thyroid bed. RIGHT NECK SOFT TISSUES: Scattered architecturally normal nodes are present. The nodes show normal fatty hilus, normal cortical thickness, and no cystic change or calcification. No abnormal color flow. The largest nodes are as follows: Level Ib: 0.72 x 0.35 x 0.61 cm. Normal ryan architecture. Not seen previously. Level Ib: 0.87 x 0.50 x 0.96 cm cm. Normal ryan architecture. Not seen previously. Level III: 0: 96 x 0.41 x 0.70 cm. Normal architecture. Previously measured 1.1 x 0.23 x 1.1 cm Level III: 0.76 x 0.60 x 0.3 cm. Normal architecture. Not seen previously. LEFT NECK SOFT TISSUES: Scattered architecturally normal nodes are present. The nodes show normal fatty hilus, normal cortical thickness, and no cystic change or calcification. No abnormal color flow. The largest nodes are as follows: Level III: 1.2 x 0.5 x 0.73 cm. Normal ryan architecture. Measured 1.7 x 0.50 x 0.72 cm previously. Level III: 1.1 x 0.36 x 0.71 cm cm. Normal ryan architecture. Not seen previously. Level III: 1.1 x 0.51 x 0.94 cm. Normal ryan architecture. Previously measured 1.8 x 0.50 x 0.92 cm. US/US soft tiss head and/or neck IMPRESSION: 1. Minimal improvement in the size of the lymph nodes, compared to the previous exam 03/14/2020. Some of the small lymph nodes were not seen previously but are less than 1 cm.
== END 2021-07-27 11:28 | disposition home or self-care (01) ==
LOC: HO.HMGCX 11:27
PROVIDERS: PCP Internal Medicine; Visit Provider Internal Medicine
DX: Z85.850 Personal history of malignant neoplasm of thyroid (principal)
CPT/HCPCS: 76536

== ENCOUNTER 2021-08-23 13:35 | Outpatient (REF) | payer MEDICAID, SELFPAY ==
[2021-08-23 15:18] LABS: Thyroid Stimulating Hormone 0.11 uIU/mL (0.32-4.0)
[2021-08-25 03:07] LABS: Thyroglobulin 0.2 ng/mL
[2021-08-25 07:51] LABS: Thyroglobulin Antibodies <1 IU/mL (< or = 1)
== END 2021-08-23 13:36 | disposition home or self-care (01) ==
LOC: HO.LAB 13:35
PROVIDERS: PCP Internal Medicine; Visit Provider Internal Medicine
DX: E89.0 Postprocedural hypothyroidism (principal); E55.9 Vitamin D deficiency, unspecified; Z85.850 Personal history of malignant neoplasm of thyroid
CPT/HCPCS: 36415; 84432; 84443; 86800; 99212

== ENCOUNTER → 2021-08-24 10:42 | Outpatient (BNVA) | payer MEDICAID, SELFPAY | PROVIDERS: PCP Family Medicine; Visit Provider Nurse Practitioner Family | DX: M47.816 Spondylosis without myelopathy or radiculopathy, lumbar region (principal) | CPT/HCPCS: 99212 ==

== ENCOUNTER 2021-09-18 10:39 | Outpatient (REF) | payer MEDICAID, SELFPAY ==
[2021-09-18 12:02] LABS: Alanine Aminotransferase 18 U/L (0-31); Albumin Level 4.2 g/dL (3.5-5.0); Alkaline Phosphatase 57 U/L (39-117); Anion Gap 13 (12-20); Aspartate Amino Transferase 27 U/L (5-31); Bilirubin Total 0.3 mg/dL (0.0-1.0); Blood Urea Nitrogen 10 mg/dL (9-16); Calcium 9.2 mg/dL (8.4-10.2); Carbon Dioxide 30 mmol/L (22-29); Chloride 104 mmol/L (96-108); Estimated Glomerular Filt Rate > 60; Glucose Random 100 mg/dL (60-115); Phosphorus 4.1 mg/dL (2.7-4.5); Potassium 4.5 mmol/L (3.3-5.1); Sodium 142 mmol/L (135-145); Total Protein 6.9 g/dL (6.5-8.0)
[2021-09-18 12:15] LABS: Free T4 (Free Thyroxine) < 0.40 ng/dL (0.71-1.85); Thyroid Stimulating Hormone 24.73 uIU/mL (0.32-4.0); Vitamin D 25-OH Total 40.7 ng/mL (>30)
[2021-09-19 13:57] LABS: PTHI 65 pg/mL (14-64)
[2021-09-19 19:37] LABS: Thyroglobulin 1.3 ng/mL; Thyroglobulin Antibodies <1 IU/mL (< or = 1)
== END 2021-09-18 10:40 | disposition home or self-care (01) ==
LOC: HO.LAB 10:39
PROVIDERS: PCP Internal Medicine; Visit Provider Internal Medicine
DX: Z85.850 Personal history of malignant neoplasm of thyroid (principal)
CPT/HCPCS: 36415; 80053; 82306; 83970; 84100; 84432; 84439; 84443; 86800

== ENCOUNTER 2021-09-25 10:08 | Outpatient (REF) | payer MEDICAID, SELFPAY ==
--- NOTE | ~2021-09-25 | XR_ITS ---
EXAMINATION: XR LUMBOSACRAL SPINE CLINICAL INFORMATION: Spondylosis COMPARISON: 03/17/2019 TECHNIQUE: Three views of the lumbosacral spine. FINDINGS: Normal alignment. No compression fracture. Mild multilevel degenerative endplate changes throughout the lumbar spine without significant disc space narrowing. Bilateral pars defects at L5. The soft tissues are unremarkable. The bowel gas pattern is normal. XR/XR lumbar spine 2-3V IMPRESSION: Stable spondylosis. Stable bilateral pars defects at L5 with no malalignment.
[2021-09-25 11:57] LABS: Thyroid Stimulating Hormone 41.63 uIU/mL (0.32-4.0)
[2021-09-26 17:16] LABS: Thyroglobulin 1.7 ng/mL; Thyroglobulin Antibodies <1 IU/mL (< or = 1)
== END 2021-09-25 10:09 | disposition home or self-care (01) ==
LOC: HO.LAB 10:08
PROVIDERS: Absent Provider Internal Medicine; PCP Internal Medicine; Visit Provider Internal Medicine
DX: M47.816 Spondylosis without myelopathy or radiculopathy, lumbar region (principal); Z85.850 Personal history of malignant neoplasm of thyroid
CPT/HCPCS: 36415; 72100; 84432; 84443; 86800

== ENCOUNTER 2021-10-16 11:06 | Outpatient (REF) | payer MEDICAID, SELFPAY ==
--- NOTE | ~2021-10-16 | US_ITS ---
EXAMINATION: US SOFT TISSUE NECK CLINICAL INFORMATION: Thyroid cancer. Increased uptake in thyroid bed. Evaluate for recurrent thyroid cancer. COMPARISON: Previous exam most recent July 2021. TECHNIQUE: Ultrasound of the neck soft tissues is performed with high- frequency perez-scale imaging and color Doppler. FINDINGS: THYROID BED: Prior thyroidectomy. No residual thyroid tissue demonstrated in the thyroid bed. No cystic or solid nodules demonstrated in the thyroid bed. RIGHT NECK SOFT TISSUES: Scattered architecturally normal nodes are present. The nodes show normal fatty hilus, normal cortical thickness, and no cystic change or calcification. No abnormal color flow. The largest nodes are as follows: Level 2: 0.9 x 0.4 x 0.9 cm. Normal ryan architecture. Level 3: 0.8 x 0.3 x 0.6 cm. Normal ryan architecture. LEFT NECK SOFT TISSUES: Scattered architecturally normal nodes are present. The nodes show normal fatty hilus, normal cortical thickness, and no cystic change or calcification. No abnormal color flow. The largest nodes are as follows: Level 3: 1.7 x 0.5 x 0.6 cm. Normal ryan architecture. Level 2: 1.3 x 0.5 x 1.3 cm. Normal ryan architecture. US/US soft tiss head and/or neck IMPRESSION: 1. No residual thyroid tissue seen. 2. Bilateral cervical lymph nodes similar to previous exam.
== END 2021-10-16 11:07 | disposition home or self-care (01) ==
LOC: HO.HMGCX 11:06
PROVIDERS: Visit Provider Internal Medicine
DX: Z85.850 Personal history of malignant neoplasm of thyroid (principal)
CPT/HCPCS: 76536

== ENCOUNTER 2021-10-30 10:43 | Outpatient (REF) | payer MEDICAID, SELFPAY ==
--- NOTE | ~2021-10-30 | US_ITS ---
EXAMINATION: US GUIDED LYMPH NODE BIOPSY CLINICAL INFORMATION: History of papillary thyroid cancer and increased uptake in the neck. COMPARISON: Previous ultrasounds most recent September 2021 TECHNIQUE: Procedure and risk and benefits including bleeding and infection were discussed with the patient through an fuel oil clerk and informed consent was obtained. The left neck was prepped and draped in the usual sterile fashion. The skin and soft tissues were anesthetized with 1% lidocaine plain. Using ultrasound guidance and a 25-gauge needle, initially access to a left level 3 lymph no was obtained. Two 25-gauge FNA samples were obtained. Next, again using a 25-gauge needle, access to a left level 2 lymph node was obtained. A total of four 25-gauge FNA specimens were obtained. FINDINGS: There are multiple small left cervical nodes. Left level 2 lymph node measuring 1 cm in short access and left level 3 lymph node measuring 0.9 cm in short axis were targeted for fine needle aspiration. US/US biopsy lymph node IMPRESSION: Ultrasound-guided aspiration of left level 2 and 3 cervical lymph nodes.
[2021-10-30] MEDS: Lidocaine HCl 1 % MPF 5 ML VIAL SUBCUT (12:44)
[2021-11-04 00:16] LABS: Thyroglobulin, Fine Needle Asp <0.1 ng/mL
== END 2021-10-30 10:44 | disposition home or self-care (01) ==
LOC: HO.US 10:43
PROVIDERS: Radiology Diagnostic Radiology; Visit Provider Internal Medicine
DX: Z85.850 Personal history of malignant neoplasm of thyroid (principal)
CPT/HCPCS: 36415; 38505; 76942; 84432; 88172; 88173; 88177

== ENCOUNTER → 2021-11-16 10:57 | Outpatient (BNVA) | payer MEDICAID, SELFPAY | PROVIDERS: PCP Internal Medicine; Visit Provider Internal Medicine | DX: Z13.89 Encounter for screening for other disorder (principal) ==

== ENCOUNTER 2021-11-17 08:04 | Outpatient (REF) | payer MEDICAID, SELFPAY ==
[2021-11-17 09:46] LABS: Alanine Aminotransferase 13 U/L (0-31); Albumin Level 4.2 g/dL (3.5-5.0); Alkaline Phosphatase 54 U/L (39-117); Anion Gap 10 (12-20); Aspartate Amino Transferase 18 U/L (5-31); Bilirubin Total 0.4 mg/dL (0.0-1.0); Blood Urea Nitrogen 9 mg/dL (9-16); Calcium 9.7 mg/dL (8.4-10.2); Carbon Dioxide 33 mmol/L (22-29); Chloride 104 mmol/L (96-108); Estimated Glomerular Filt Rate > 60; Glucose Random 107 mg/dL (60-115); Phosphorus 3.9 mg/dL (2.7-4.5); Potassium 4.7 mmol/L (3.3-5.1); Sodium 142 mmol/L (135-145); Total Protein 6.8 g/dL (6.5-8.0)
[2021-11-17 10:10] LABS: Free T4 (Free Thyroxine) 1.05 ng/dL (0.71-1.85); Thyroid Stimulating Hormone 2.07 uIU/mL (0.32-4.0); Vitamin D 25-OH Total 42.9 ng/mL (>30)
[2021-11-20 12:47] LABS: Calcium (PTHI) 9.5 mg/dL (8.6-10.4); PTHI 45 pg/mL (16-77)
[2021-11-20 18:26] LABS: Thyroglobulin Antibodies <1 IU/mL (< or = 1)
[2021-11-20 21:31] LABS: Thyroglobulin 0.2 ng/mL
== END 2021-11-17 08:05 | disposition home or self-care (01) ==
LOC: HO.LAB 08:04
PROVIDERS: Visit Provider Internal Medicine
DX: E55.9 Vitamin D deficiency, unspecified (principal); E21.3 Hyperparathyroidism, unspecified; Z85.850 Personal history of malignant neoplasm of thyroid
CPT/HCPCS: 36415; 80053; 82306; 83970; 84100; 84432; 84439; 84443; 86800

== ENCOUNTER 2021-12-16 13:21 | Emergency (ER) | payer MEDICAID, SELFPAY ==
--- NOTE | 2021-12-16 | ECG_ITS ---
Test Reason : SOB Blood Pressure : / mmHG Vent. Rate : 058 BPM Atrial Rate : 058 BPM P-R Int : 150 ms QRS Dur : 082 ms QT Int : 444 ms P-R-T Axes : 040 -10 039 degrees QTc Int : 435 ms Sinus bradycardia Otherwise normal ECG When compared with ECG of 14-JAN-2021 15:36, No significant change was found Referred By: Generic ED Physician Electronically Signed By:Ernie Callaway
--- NOTE | ~2021-12-16 | XR_ITS ---
EXAMINATION: XR CHEST CLINICAL INFORMATION: Shortness of breath COMPARISON: CT chest 01/14/2021 TECHNIQUE: Frontal view of the chest was obtained. FINDINGS: Minor increased diffuse lung markings chronic. No significant abnormality is noted involving the heart, lungs, mediastinum, bony thorax or soft tissues. XR/XR chest 1V IMPRESSION: No active chest disease.
[2021-12-16 13:29] VITALS: BP 105/79; PULSE 60; O2SAT 99
[2021-12-16 13:34] VITALS: BP 124/69; PULSE 72; RESP 18; TEMP 37.2; O2SAT 97; BMI 31.4
[2021-12-16 16:16] LABS: MANUAL DIFF FLAG NO
[2021-12-16 16:28] LABS: Basophils Absolute Auto 0.1 X10*3/uL (0.0-0.2); Basophils Percent Auto 0.7 % (0-2); Eosinophils Absolute Auto 0.2 X10*3/uL (0.0-0.4); Eosinophils Percent Auto 2.1 % (0-4); Hematocrit 40.3 % (37.0-47.0); Hemoglobin 13.5 g/dl (12.0-16.0); Imm Gran Abs Auto 0.05 X10*3/uL (0.00-0.03); Imm Gran Pct Auto 0.6 % (0.0-0.4); Lymphocytes Absolute Auto 2.4 X10*3/uL (1.2-4.9); Lymphocytes Percent Auto 28.2 % (20-40); Mean Corpuscular HGB Conc 33.5 g/dl (31.0-35.0); Mean Corpuscular Volume 86.5 fL (80.0-98.0); Mean Platelet Volume 12.5 fL (9.4-12.3); Monocytes Absolute Auto 0.6 X10*3/uL (0.1-1.2); Monocytes Percent Auto 6.5 % (2-11); Neutrophils Absolute Auto 5.3 x10*3/uL (2.0-8.3); Neutrophils Percent Auto 61.9 % (45-73); Platelet Count 146 X10*3/uL (160-400); Red Blood Count 4.66 X10*6/uL (4.20-5.50); Red Cell Distribution Width 11.9 % (11.0-16.0); White Blood Count 8.5 X10*3/uL (4.8-10.8)
[2021-12-16 16:33] LABS: Influenza A Negative (Negative)
[2021-12-16 16:34] LABS: COVID-19 Test Negative (Negative); IDNOW Serial# 16C4AD1C; Influenza B2 Negative (Negative)
[2021-12-16 16:38] LABS: Alanine Aminotransferase 16 U/L (0-31); Albumin Level 4.6 g/dL (3.5-5.0); Alkaline Phosphatase 56 U/L (39-117); Anion Gap 13 (12-20); Aspartate Amino Transferase 17 U/L (5-31); Bilirubin Total 0.5 mg/dL (0.0-1.0); Blood Urea Nitrogen 13 mg/dL (9-16); Carbon Dioxide 28 mmol/L (22-29); Chloride 106 mmol/L (96-108); Creatinine Clr Calc Pharmacy 73.2; Estimated Glomerular Filt Rate > 60; Glucose Random 100 mg/dL (60-115); Potassium 4.5 mmol/L (3.3-5.1); Sodium 142 mmol/L (135-145); Total Protein 7.6 g/dL (6.5-8.0)
[2021-12-16 16:51] LABS: Troponin-I High Sensitivity < 3.5 ng/L (<3.5-17.0)
--- NOTE | 2021-12-16 16:53 | ED.SOB ---
HPI - SOB/Dyspnea General Chief Complaint: Dyspnea Stated Complaint: sob - worse when patient smokes Time Seen by Provider: 12/16/21 13:26 Source: patient Mode of arrival: ambulatory Limitations: no limitations History of Present Illness HPI Narrative: 61-year-old female past medical history significant for diabetes, dyslipidemia, lumbar spondylolysis, hypothyroidism, primary thyroid cancer, vitamin-D deficiency presenting to the emergency department with complaints of shortness of breath and anxiety since yesterday. According to patient and family member yesterday a [facility] confirm that patient had an appointment there on Saturday for her thyroid cancer, when patient heard about this appointment she became very anxious and started experiencing shortness of breath. Patient tells me that currently she is feeling anxious and slightly short of breath. She is unable to tell me what makes the shortness of breath better worse. Son who is at the bedside tells me that patient has been losing a lot a weight lately she has lost 10 lb over the past few months. He also tells me she has not been eating well as she has not had much of an appetite and has been very anxious. He tells me this is like her typical anxiety attack. She denies chest pain, fevers, chills, diaphoresis, nausea, vomiting, abdominal pain, vision changes, dizziness. MD elicited complaint: shortness of breath and anxiety Onset (ago): day(s) (2) Timing: constant Severity: mild Exacerbating factors: stress Relieving factors: nothing Known history of: other (Malignancy) Associated symptoms: denies other symptoms Treatment prior to arrival: none Related Data Home Medications Medication Instructions Recorded Confirmed albuterol sulfate 90 mcg/actuation 2 puff INHALATION Q6H PRN 05/27/20 11/16/21 aerosol inhaler aspirin 81 mg tablet,delayed 81 mg PO DAILY 05/27/20 11/16/21 release atorvastatin 40 mg tablet 40 mg PO DAILY 05/27/20 11/16/21 cholecalciferol (vitamin D3) 25 25 mcg PO DAILY 05/27/20 11/16/21 mcg (1,000 unit) capsule escitalopram oxalate 20 mg tablet 20 mg PO DAILY 05/27/20 11/16/21 fluticasone propionate 110 1 puff INHALATION BID 05/27/20 11/16/21 mcg/actuation HFA aerosol inhaler (Flovent HFA) lanolin alcohols-mineral 1 applic TOPICAL DAILY 05/27/20 11/16/21 oil-w.petrolatum-ceresin topical cream (Eucerin) sennosides 8.6 mg tablet (senna) 8.6 mg PO DAILY 05/27/20 11/16/21 Previous Rx's Medication Instructions Recorded thyrotropin tristen 0.9 mg 0.9 mg IM DAILY #2 ml 07/07/21 intramuscular solution (Thyrogen) sitagliptin 100 mg tablet (Januvia) 100 mg PO DAILY #30 tab 11/13/21 tramadol 50 mg tablet 50 mg PO Q6H #120 tab 11/14/21 levothyroxine 175 mcg tablet 175 mcg PO DAILY 30 Days #30 tab 11/20/21 Allergies Allergy/AdvReac Type Severity Reaction Status Date / Time ibuprofen Allergy Unknown ITCHY Verified 11/16/21 12:44 morphine Allergy Unknown Unknown Verified 11/16/21 12:44 Review of Systems Review of Systems: Constitutional : No Weight loss, No Fever, No Chills, No Fatigue, No Malaise ENT/Mouth : No sore throat, No Rhinorrhea Eyes: No Eye Pain, No Swelling, No Redness Cardiovascular : No Chest Pain, + SOB, No Dyspnea on Exertion, No Orthopnea, No Edema, No Palpitations Respiratory : No Cough, No Sputum, No Wheezing Gastrointestinal : No Nausea, No Vomiting, No Diarrhea, No Constipation, No abdominal Pain, No Hematochezia, No Melena Genitourinary : No Dysuria, No Urinary Frequency, No Hematuria, Musculoskeletal : No joint pain, No Myalgias, No Joint Swelling Skin : No Skin Lesions, No rash Neuro : No Weakness, No Numbness, No Dizziness, No Headache Psych : + Anxiety/Panic, No Depression All other systems reviewed and are negative Yes all other systems are reviewed and are negative [facility] Past Medical History Attestation statement: The following information was validated with the patient. Source: old records reviewed and nursing notes reviewed Medical History Diabetes type 2, controlled Diabetic polyneuropathy associated with type 2 diabetes mellitus Dyslipidemia H/O malignant neoplasm of skin History of thyroid cancer Hyperparathyroidism Lumbar spondylosis Osteopenia Post-surgical hypothyroidism Postsurgical hypothyroidism Primary thyroid cancer Vitamin D deficiency Vitamin D deficiency Surgical History History of biopsy History of bunionectomy History of carpal tunnel release History of lip cancer Hx of cholecystectomy Hx of colonoscopy Hx of hysterectomy Hx of mastectomy Hx of thyroidectomy Family History Family History Father Diabetes mellitus Mother Cancer of eye Skin cancer of nose Social History Social History Household Members: Spouse Housing: Unknown / Unable to assess Do you presently have visiting nurse or other home services: No Unable to assess alcohol history related to: Unable to respond Alcohol intake: former Patient Tobacco Use Status: Current someday Tobacco user Cigarette Packs Per Day: 1 Substance Use Type: Opiates Advance Directives: No Advance Directives Information Provided: No service: No Current occupational status: disabled Physical Exam Vital Signs: Vital Signs: Last Vital Signs Temp 98.7 F 12/16/21 17:05 Pulse 72 12/16/21 13:34 Resp 13 12/16/21 17:05 BP 130/59 L 12/16/21 17:05 Pulse Ox 98 12/16/21 17:05 BMI result Body Mass Index 31.4 Vital signs stable. Appearance: Alert.? Oriented X3.? No acute distress. Patient appears anxious, when I speak to her she is shaking her upper and lower extremities. When I walk into the room patient calms down. Head: Normocephalic, atraumatic, no step-offs or deformities Eyes: Pupils equal, round and reactive to light.? ENT: Pharynx normal.? Neck: Normal inspection.? Neck supple.? CVS: Normal heart rate and rhythm.? Pulses normal.? Respiratory: No respiratory distress.? Breath sounds normal.? Abdomen: Soft and nontender.? Skin: Skin warm and dry.? Normal skin color.? Normal skin turgor.? Extremities: No lower extremity edema.? No calf ttp, negative Tammy bilaterally. 5/5 strength to bilateral upper and lower extremities Back: No midline tenderness, no C-spine tenderness, full range of motion, no CVA tenderness bilaterally Neuro: Oriented X 3.? No motor deficit.? No sensory deficit. CN 2-12 intact Course Reevaluation(s) Reevaluation #1: CBC appears to be around patient's baseline. She does have an a slated thrombocytopenia. Which appears to be her baseline. Chemistry with no acute electrolyte abnormalities. Troponin negative, EKG nonischemic unlikely ACS. BNP negative I do not suspect CHF at this time, no signs of fluid overload on exam and no signs on chest x-ray. Chest x-ray with no acute findings. COVID and influenza negative. D-dimer negative unlikely that this is a PE. Patient's symptoms improved after fluids and Ativan, she tells me she is feeling slightly anxious because of her situation however denies shortness of breath. At this time patient's symptoms likely secondary to anxiety. Saturating well on room air. Vital signs are stable. I feel comfortable discharge home with PCP follow-up. Time: 18:59 MDM - SOB/Dyspnea MDM Narrative Medical decision making narrative: [id number] 61-year-old female presents with concerns of shortness of breath and anxiety x2 days after finding out that she has an appointment in [place] for her thyroid cancer. Patient has had a 10 lb weight loss in the last few months. Decreased appetite. Physical examination benign however, patient does appear anxious. Plan at this time is labs, imaging. Due to patient history of malignancy, shortness of breath there is some suspicion for pulmonary embolism a D-dimer will be obtained at this time. Weight loss is likely secondary to malignancy, for which she is being followed by [employer] captain oncologist out of [place]. Likely anxiety. Very low suspicion for ACS however troponin and EKG will be obtained. Medical Records Attestation: I reviewed the patient's medical records. Lab Data Attestation: I reviewed the patient's lab results. Result diagrams: 12/16/21 16:07 12/16/21 16:07 Labs: Lab Results 12/16/21 12/16/21 12/16/21 Range/Units 16:07 16:07 16:07 WBC 8.5 (4.8-10.8) X10*3/uL RBC 4.66 (4.20-5.50) X10*6/uL Hgb 13.5 (12.0-16.0) g/dl Hct 40.3 (37.0-47.0) % MCV 86.5 (80.0-98.0) fL MCH 29.0 (27.0-33.0) pg MCHC 33.5 (31.0-35.0) g/dl RDW 11.9 (11.0-16.0) % Plt Count 146 L (160-400) X10*3/uL MPV 12.5 H (9.4-12.3) fL Immature Gran % (Auto) 0.6 H (0.0-0.4) % Neut % (Auto) 61.9 (45-73) % Lymph % (Auto) 28.2 (20-40) % [place] % (Auto) 6.5 (2-11) % Eos % (Auto) 2.1 (0-4) % Baso % (Auto) 0.7 (0-2) % Lymph # (Auto) 2.4 (1.2-4.9) X10*3/uL [place] # (Auto) 0.6 (0.1-1.2) X10*3/uL Eos # (Auto) 0.2 (0.0-0.4) X10*3/uL Baso # (Auto) 0.1 (0.0-0.2) X10*3/uL Abs Immat Gran (auto) 0.05 H (0.00-0.03) X10*3/uL Absolute Neuts (auto) 5.3 (2.0-8.3) x10*3/uL Absolute Nucleated RBC 0.000 (0.0-0.012) X10*3/uL Nucleated RBC % (auto) 0.0 (0.0-0.2) /100WBC D-Dimer High Sensitivty NG/ML Sodium 142 (135-145) mmol/L Potassium 4.5 (3.3-5.1) mmol/L Chloride 106 (96-108) mmol/L Carbon Dioxide 28 (22-29) mmol/L Anion Gap 13 (12-20) BUN 13 (9-16) mg/dL Creatinine 0.77 (0.5-1.4) mg/dL Estim Creat Clear Calc 73.2 Estimated GFR > 60 Random Glucose 100 (60-115) mg/dL Calcium 10.0 (8.4-10.2) mg/dL Total Bilirubin 0.5 (0.0-1.0) mg/dL AST 17 (5-31) U/L ALT 16 (0-31) U/L Alkaline Phosphatase 56 (39-117) U/L Troponin I High Sens (<3.5-17.0) ng/L B-Natriuretic Peptide (<100) pg/mL Total Protein 7.6 (6.5-8.0) g/dL Albumin 4.6 (3.5-5.0) g/dL COVID-19 (MCKENNA) (Negative) COVID-19 Clin Com Influenza Type A (JEN) Negative (Negative) Influenza Type B (JEN) Negative (Negative) Influenza A & B Note See Note 12/16/21 12/16/21 12/16/21 Range/Units 16:07 16:07 17:31 WBC (4.8-10.8) X10*3/uL RBC (4.20-5.50) X10*6/uL Hgb (12.0-16.0) g/dl Hct (37.0-47.0) % MCV (80.0-98.0) fL MCH (27.0-33.0) pg MCHC (31.0-35.0) g/dl RDW (11.0-16.0) % Plt Count (160-400) X10*3/uL MPV (9.4-12.3) fL Immature Gran % (Auto) (0.0-0.4) % Neut % (Auto) (45-73) % Lymph % (Auto) (20-40) % [place] % (Auto) (2-11) % Eos % (Auto) (0-4) % Baso % (Auto) (0-2) % Lymph # (Auto) (1.2-4.9) X10*3/uL [place] # (Auto) (0.1-1.2) X10*3/uL Eos # (Auto) (0.0-0.4) X10*3/uL Baso # (Auto) (0.0-0.2) X10*3/uL Abs Immat Gran (auto) (0.00-0.03) X10*3/uL Absolute Neuts (auto) (2.0-8.3) x10*3/uL Absolute Nucleated RBC (0.0-0.012) X10*3/uL Nucleated RBC % (auto) (0.0-0.2) /100WBC D-Dimer High Sensitivty 162 NG/ML Sodium (135-145) mmol/L Potassium (3.3-5.1) mmol/L Chloride (96-108) mmol/L Carbon Dioxide (22-29) mmol/L Anion Gap (12-20) BUN (9-16) mg/dL Creatinine (0.5-1.4) mg/dL Estim Creat Clear Calc Estimated GFR Random Glucose (60-115) mg/dL Calcium (8.4-10.2) mg/dL Total Bilirubin (0.0-1.0) mg/dL AST (5-31) U/L ALT (0-31) U/L Alkaline Phosphatase (39-117) U/L Troponin I High Sens < 3.5 (<3.5-17.0) ng/L B-Natriuretic Peptide 24 (<100) pg/mL Total Protein (6.5-8.0) g/dL Albumin (3.5-5.0) g/dL COVID-19 (MCKENNA) Negative (Negative) COVID-19 Clin Com See Note Influenza Type A (JEN) (Negative) Influenza Type B (JEN) (Negative) Influenza A & B Note ECG Data Attestation: I personally reviewed and interpreted this ECG as follows: ECG interpretation date: 12/16/21 ECG interpretation time: 17:11 Prior ECG tracings: available for review Interpretation: Ventricular rate of 58, PA normal, QRS normal, QT/QTC normal. EKG shows sinus bradycardia, no ST elevations or inversions concerning for ischemia. No significant changes when compared to EKG from 01/14/2021. Critical Care Time Critical Care Time Critical Care Time: No Discharge Plan Discharge Clinical Impression: Shortness of breath, Anxiety Patient Disposition: Home, Self-Care Instructions: Anxiety (ED), Shortness of Breath (ED) Additional Instructions: Take your medications as prescribed. If you were prescribed antibiotics today, it is important that you take your medication to their entirety, do not skip any doses, do not finish them early. Follow-up with your primary care provider this week. Return to the emergency department with new or worsening symptoms. Such as fevers, chills, chest pain, shortness of breath, nausea, vomiting, dizziness, headache, vision changes, lethargy, weakness In case of emergency call 911 Your cardiac enzymes an EKG looked good. Your laboratory studies were reassuring. Your screening test for a pulmonary embolism or blood clot was negative. ?XR/XR chest 1V IMPRESSION: No active chest disease. [place]pine darling medicamentos seg?n lo prescrito. Si le recetaron antibi?ticos hoy, es importante que tome springer medicamento en springer totalidad, no se salte ninguna dosis, no los termine antes de tiempo. Seguimiento con springer proveedor de atenci?n primaria esta semana. Regrese al departamento de emergencias con s?ntomas nuevos o que empeoran. Brittany fiebre, escalofr?os, dolor de pecho, dificultad para respirar, n?useas, v?mitos, mareos, dolor de lexus, cambios en la visi?n, letargo, debilidad. En abundio de emergencia llama al 911 Tus enzimas card?acas y un electrocardiograma se ve?an sabine. Darling estudios de laboratorio fueron tranquilizadores. Springer prueba de detecci?n de embolia pulmonar o co?gulo de trena fue negativa. ? Prescriptions: No Action Thyrogen 0.9 mg recon soln 0.9 mg IM DAILY Qty: 2 0RF Januvia 100 mg tablet 100 mg PO DAILY Qty: 30 4RF tramadol 50 mg tablet 50 mg PO Q6H Qty: 120 2RF levothyroxine 175 mcg tablet 175 mcg PO DAILY 30 Days Qty: 30 3RF Eucerin Cream 1 applic topical DAILY 0RF aspirin 81 mg tablet,delayed release (DR/EC) 81 mg PO DAILY 0RF cholecalciferol (vitamin D3) 25 mcg (1,000 unit) capsule 25 mcg PO DAILY 0RF escitalopram oxalate 20 mg tablet 20 mg PO DAILY 0RF atorvastatin 40 mg tablet 40 mg PO DAILY 0RF sennosides [senna] 8.6 mg tablet 8.6 mg PO DAILY 0RF albuterol sulfate 90 mcg/actuation HFA aerosol inhaler 2 puff inhalation Q6H PRN (Reason: Wheezing) 0RF Flovent HFA 110 mcg/actuation HFA aerosol inhaler 1 puff inhalation BID 0RF Referrals: Gordon Velez MD [Primary Care Provider] - 2 days
[2021-12-16 17:05] VITALS: BP 130/59; RESP 13; TEMP 37.1; O2SAT 98
[2021-12-16 17:14] LABS: B Type Natriuretic Peptide 24 pg/mL (<100)
[2021-12-16 17:43] LABS: D Dimer High Sensitivity 162 NG/ML
[2021-12-16] MEDS: LORazepam 0.5 MG TABLET 0.25 MG PO (18:14)
[2021-12-16 19:15] VITALS: BP 127/72; PULSE 56; RESP 18; TEMP 37.2; O2SAT 95
== END 2021-12-16 19:20 | disposition home or self-care (01) ==
PROVIDERS: Physician Assistant; Emergency Provider Emergency Medicine Emergency Medical Services; PCP Internal Medicine
DX: R06.02 Shortness of breath (principal); F41.1 Generalized anxiety disorder; F43.0 Acute stress reaction; E11.9 Type 2 diabetes mellitus without complications; F17.210 Nicotine dependence, cigarettes, uncomplicated; Z20.822 Contact with and (suspected) exposure to COVID-19; Z71.6 Tobacco abuse counseling; Z79.899 Other long term (current) drug therapy
CPT/HCPCS: 36415; 71045; 80053; 83880; 84484; 85025; 85379; 87502; 87635; 93005; 99283

== ENCOUNTER 2022-01-23 10:38 | Outpatient (REF) | payer MEDICAID, SELFPAY ==
[2022-01-23 13:36] LABS: Thyroid Stimulating Hormone 0.03 uIU/mL (0.32-4.0)
[2022-01-25 02:47] LABS: Thyroglobulin Antibodies <1 IU/mL (< or = 1)
[2022-01-25 11:02] LABS: Thyroglobulin 0.2 ng/mL
== END 2022-01-23 10:39 | disposition home or self-care (01) ==
LOC: HO.LAB 10:38
PROVIDERS: PCP Internal Medicine; Visit Provider Internal Medicine
DX: E89.0 Postprocedural hypothyroidism (principal)
CPT/HCPCS: 36415; 84432; 84439; 84443; 86800

== ENCOUNTER 2022-03-06 10:54 | Outpatient (REF) | payer MEDICAID, SELFPAY ==
--- NOTE | ~2022-03-06 | MM_ITS ---
EXAMINATION: MM SCREENING DIGITAL BREAST TOMOSYNTHESIS, LEFT CLINICAL INFORMATION: Screening. Asymptomatic. Status post right mastectomy. COMPARISON: Mammography: March 02, 2021 and studies dating back to May 10, 2016 TECHNIQUE: Digital breast tomosynthesis is performed in both the craniocaudal and mediolateral oblique views along with computer-aided detection (CAD). Synthesized 2D images are generated from the tomosynthesis. FINDINGS: The breasts are heterogeneously dense, which may obscure small masses (ACR BI-RADS breast composition Category c). There are no new significant masses, abnormal calcifications, or other abnormalities. There is a stable region of density about the deep medial aspect on craniocaudal view. MM/MM tomosynthesis screening LT IMPRESSION: No significant changes from prior exam. ASSESSMENT: BI-RADS 1: Negative RECOMMENDATION: Routine annual mammography screening. This patient's information was entered into a reminder system with a target due date for their next mammogram.
== END 2022-03-06 10:55 | disposition home or self-care (01) ==
LOC: HO.MAMMO 10:54
PROVIDERS: PCP Internal Medicine; Visit Provider Internal Medicine
DX: Z12.31 Encounter for screening mammogram for malignant neoplasm of breast (principal)
CPT/HCPCS: 77063; 77067

== ENCOUNTER 2022-06-04 13:00 | Outpatient (REF) | payer MEDICAID, SELFPAY ==
[2022-06-04 14:30] LABS: Albumin Level 4.3 g/dL (3.5-5.0); Free T4 (Free Thyroxine) 1.12 ng/dL (0.71-1.85); Phosphorus 3.4 mg/dL (2.7-4.5); Thyroid Stimulating Hormone 0.02 uIU/mL (0.32-4.0); Vitamin D 25-OH Total 50.3 ng/mL (>30)
[2022-06-05 12:16] LABS: Calcium (PTHI) 9.3 mg/dL (8.6-10.4); PTHI 44 pg/mL (16-77)
[2022-06-05 12:27] LABS: Thyroglobulin 0.3 ng/mL; Thyroglobulin Antibodies <1 IU/mL (< or = 1)
== END 2022-06-04 13:01 | disposition home or self-care (01) ==
LOC: HO.LAB 13:00
PROVIDERS: PCP Internal Medicine; Visit Provider Internal Medicine
DX: E55.9 Vitamin D deficiency, unspecified (principal); E89.0 Postprocedural hypothyroidism
CPT/HCPCS: 36415; 82040; 82306; 83970; 84100; 84432; 84439; 84443; 86800

== ENCOUNTER → 2022-08-23 11:24 | Outpatient (BNVA) | payer MEDICAID, SELFPAY | PROVIDERS: PCP Family Medicine; Visit Provider Nurse Practitioner Family | DX: M47.816 Spondylosis without myelopathy or radiculopathy, lumbar region (principal); M79.7 Fibromyalgia; M25.511 Pain in right shoulder; M25.512 Pain in left shoulder; M79.641 Pain in right hand; M79.642 Pain in left hand; M17.0 Bilateral primary osteoarthritis of knee | CPT/HCPCS: 99212 ==

== ENCOUNTER → 2022-09-27 13:16 | Outpatient (BNVA) | payer MEDICAID, SELFPAY | PROVIDERS: PCP Family Medicine; Visit Provider Internal Medicine | DX: C73 Malignant neoplasm of thyroid gland (principal); E89.0 Postprocedural hypothyroidism; Z79.891 Long term (current) use of opiate analgesic | CPT/HCPCS: 99212 ==

== ENCOUNTER 2022-09-27 13:55 | Emergency (ER) | payer MEDICAID, SELFPAY ==
[2022-09-27 14:00] VITALS: BP 114/66; PULSE 80; RESP 16; TEMP 36.4; O2SAT 95; BMI 28.5
--- NOTE | 2022-09-27 14:01 | ED.GENADULT ---
HPI - General Adult General Chief complaint: General Medical Stated complaint: Low blood pressure sent by Endocrinology Related Data Home Medications Medication Instructions Recorded Confirmed albuterol sulfate 90 mcg/actuation 2 puff inhalation Q6H PRN Wheezing 05/27/20 09/27/22 aerosol inhaler aspirin 81 mg tablet,delayed 81 mg PO DAILY 05/27/20 09/27/22 release atorvastatin 40 mg tablet 40 mg PO DAILY 05/27/20 09/27/22 fluticasone propionate 110 1 puff inhalation BID 05/27/20 09/27/22 mcg/actuation HFA aerosol inhaler (Flovent HFA) lanolin alcohols-mineral 1 applic topical DAILY 05/27/20 09/27/22 oil-w.petrolatum-ceresin topical cream (Eucerin topical cream) sennosides 8.6 mg tablet (senna) 8.6 mg PO DAILY 05/27/20 09/27/22 blood sugar diagnostic (FreeStyle #10 ea 08/23/22 09/27/22 Lite Strips) bupropion HCl 150 mg 24 hr tablet, 150 mg PO QAM 08/23/22 09/27/22 extended release bupropion HCl 300 mg 24 hr tablet, 300 mg PO DAILY 08/23/22 09/27/22 extended release calcium carbonate 500 mg calcium 500 mg PO BID 08/23/22 09/27/22 (1,250 mg) tablet (Oyster Shell Calcium 500) cholecalciferol (vitamin D3) 25 25 mcg PO DAILY 08/23/22 09/27/22 mcg (1,000 unit) tablet diclofenac sodium 1 % topical gel 2 g topical TID 08/23/22 09/27/22 docusate sodium 100 mg capsule 100 mg PO BID 08/23/22 09/27/22 escitalopram oxalate 10 mg tablet 10 mg PO QAM 08/23/22 09/27/22 fluticasone propionate 50 1 spray intranasal BID 08/23/22 09/27/22 mcg/actuation nasal spray,suspension hydroxyzine HCl 50 mg tablet 50 mg PO BEDTIME PRN 08/23/22 09/27/22 lancets 33 gauge (TRUEplus Lancets) #100 ea 08/23/22 09/27/22 loratadine 10 mg tablet 10 mg PO DAILY PRN allergies 08/23/22 09/27/22 lorazepam 1 mg tablet 1 mg PO DAILY PRN anxiety 08/23/22 09/27/22 mirtazapine 7.5 mg tablet 7.5 mg PO BEDTIME 08/23/22 09/27/22 omeprazole 20 mg capsule,delayed 20 mg PO 08/23/22 09/27/22 release polyethylene glycol 3350 17 g PO DAILY 08/23/22 09/27/22 gram/dose oral powder Previous Rx's Medication Instructions Recorded sitagliptin phosphate 100 mg 100 mg PO DAILY #30 tabs 04/09/22 tablet (Januvia) liothyronine 25 mcg tablet 25 mcg PO DAILY 14 days #14 tabs 10/11/22 (Cytomel) levothyroxine 175 mcg tablet 175 mcg PO DAILY 30 days #30 tabs 10/31/22 Allergies Allergy/AdvReac Type Severity Reaction Status Date / Time ibuprofen Allergy Unknown ITCHY Verified 09/27/22 13:28 morphine Allergy Unknown Unknown Verified 09/27/22 13:28 [facility] Past Medical History Medical History (Updated 12/05/22 @ 12:06 by Johanna Burris CNP) Diabetes type 2, controlled Diabetic polyneuropathy associated with type 2 diabetes mellitus Dyslipidemia Fibromyalgia H/O malignant neoplasm of skin History of thyroid cancer Hyperparathyroidism Hypotension Lumbar spondylosis Osteoarthritis of knees, bilateral Osteopenia Post-surgical hypothyroidism Postsurgical hypothyroidism Primary thyroid cancer Vitamin D deficiency Vitamin D deficiency Surgical History History of biopsy History of bunionectomy History of carpal tunnel release History of lip cancer Hx of cholecystectomy Hx of colonoscopy Hx of hysterectomy Hx of mastectomy Hx of thyroidectomy Family History Family History Father Diabetes mellitus Mother Cancer of eye Skin cancer of nose Social History Social History Household Members: None Housing: Apartment Are you a primary post anesthesia care unit nurse to a significant other at home: No 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 Patient is a 61-year-old female presenting to emergency department for evaluation of hypotension 90/60. Coming from endocrinology office today; has diabetes and history of thyroid cancer, postsurgical hypothyroidism. Patient reports feeling well. Denies dizziness, headache, chest pain, shortness of breath, nausea, vomiting, abdominal pain, numbness or tingling in the extremities. Denies any history of high blood pressure, not on any antihypertensives. PE: well appearing, BP WNL during RME Plan: Basic labs, orthostatic vital signs Medical Decision Making Lab Data 09/27/22 14:11 09/27/22 14:11 Labs: Lab Results 09/27/22 09/27/22 Range/Units 14:11 14:11 WBC 7.5 (4.8-10.8) X10*3/uL RBC 4.42 (4.20-5.50) X10*6/uL Hgb 12.4 (12.0-16.0) g/dl Hct 36.9 L (37.0-47.0) % MCV 83.5 (80.0-98.0) fL MCH 28.1 (27.0-33.0) pg MCHC 33.6 (31.0-35.0) g/dl RDW 12.5 (11.0-16.0) % Plt Count 139 L (160-400) X10*3/uL MPV 12.0 (9.4-12.3) fL Immature Gran % (Auto) 0.4 (0.0-0.4) % Neut % (Auto) 54.6 (45-73) % Lymph % (Auto) 28.7 (20-40) % [place] % (Auto) 8.3 (2-11) % Eos % (Auto) 7.3 H (0-4) % Baso % (Auto) 0.7 (0-2) % Lymph # (Auto) 2.2 (1.2-4.9) X10*3/uL [place] # (Auto) 0.6 (0.1-1.2) X10*3/uL Eos # (Auto) 0.6 H (0.0-0.4) X10*3/uL Baso # (Auto) 0.1 (0.0-0.2) X10*3/uL Abs Immat Gran (auto) 0.03 (0.00-0.03) X10*3/uL Absolute Neuts (auto) 4.1 (2.0-8.3) x10*3/uL Absolute Nucleated RBC 0.000 (0.0-0.012) X10*3/uL Nucleated RBC % (auto) 0.0 (0.0-0.2) /100WBC Sodium 141 (135-145) mmol/L Potassium 4.3 (3.3-5.1) mmol/L Chloride 104 (96-108) mmol/L Carbon Dioxide 30 H (22-29) mmol/L Anion Gap 11 L (12-20) BUN 13 (9-16) mg/dL Creatinine 0.73 (0.5-1.4) mg/dL Estim Creat Clear Calc 73.6 Estimated GFR > 60 Random Glucose 90 (60-115) mg/dL Calcium 8.8 D (8.4-10.2) mg/dL Total Bilirubin 0.4 (0.0-1.0) mg/dL AST 25 (5-31) U/L ALT 20 (0-31) U/L Alkaline Phosphatase 71 (39-117) U/L Total Protein 6.7 (6.5-8.0) g/dL Albumin 4.1 (3.5-5.0) g/dL Discharge Plan Discharge Clinical Impression: Hypotension Patient Disposition: Elopement Prescriptions: No Action Januvia 100 mg tablet 100 mg PO DAILY Qty: 30 6RF liothyronine [Cytomel] 25 mcg tablet 25 mcg PO DAILY 14 Days Qty: 14 0RF levothyroxine 175 mcg tablet 175 mcg PO DAILY 30 Days Qty: 30 3RF Eucerin Cream 1 applic topical DAILY aspirin 81 mg tablet,delayed release (DR/EC) 81 mg PO DAILY atorvastatin 40 mg tablet 40 mg PO DAILY sennosides [senna] 8.6 mg tablet 8.6 mg PO DAILY albuterol sulfate 90 mcg/actuation HFA aerosol inhaler 2 puff inhalation Q6H PRN (Reason: Wheezing) Flovent HFA 110 mcg/actuation HFA aerosol inhaler 1 puff inhalation BID cholecalciferol (vitamin D3) 25 mcg (1,000 unit) tablet 25 mcg PO DAILY calcium carbonate [Oyster Shell Calcium 500] 500 mg calcium (1,250 mg) tablet 500 mg PO BID loratadine 10 mg tablet 10 mg PO DAILY PRN (Reason: allergies) docusate sodium 100 mg capsule 100 mg PO BID diclofenac sodium 1 % gel 2 g topical TID lorazepam 1 mg tablet 1 mg PO DAILY PRN (Reason: anxiety) mirtazapine 7.5 mg tablet 7.5 mg PO BEDTIME bupropion HCl 300 mg tablet extended release 24 hr 300 mg PO DAILY hydroxyzine HCl 50 mg tablet 50 mg PO BEDTIME PRN omeprazole 20 mg capsule,delayed release(DR/EC) 20 mg PO polyethylene glycol 3350 17 gram/dose powder PO DAILY fluticasone propionate 50 mcg/actuation spray,suspension 1 spray intranasal BID bupropion HCl 150 mg tablet extended release 24 hr 150 mg PO QAM escitalopram oxalate 10 mg tablet 10 mg PO QAM (DME) lancets [TRUEplus Lancets] 33 gauge misc See Rx Instructions .ROUTE QID Qty: 100 Rx Instructions: As directed (DME) FreeStyle Lite Strips Strip See Rx Instructions .ROUTE QID Qty: 10 Rx Instructions: As directed Discharge Date/Time: 09/27/22 16:13
[2022-09-27 14:15] LABS: MANUAL DIFF FLAG NO
[2022-09-27 14:19] VITALS: BP 112/51; PULSE 73
[2022-09-27 14:20] VITALS: BP 102/58; PULSE 79
[2022-09-27 14:20] LABS: Basophils Absolute Auto 0.1 X10*3/uL (0.0-0.2); Basophils Percent Auto 0.7 % (0-2); Eosinophils Absolute Auto 0.6 X10*3/uL (0.0-0.4); Eosinophils Percent Auto 7.3 % (0-4); Hematocrit 36.9 % (37.0-47.0); Hemoglobin 12.4 g/dl (12.0-16.0); Imm Gran Abs Auto 0.03 X10*3/uL (0.00-0.03); Imm Gran Pct Auto 0.4 % (0.0-0.4); Lymphocytes Absolute Auto 2.2 X10*3/uL (1.2-4.9); Lymphocytes Percent Auto 28.7 % (20-40); Mean Corpuscular HGB Conc 33.6 g/dl (31.0-35.0); Mean Corpuscular Hemoglobin 28.1 pg (27.0-33.0); Mean Corpuscular Volume 83.5 fL (80.0-98.0); Monocytes Absolute Auto 0.6 X10*3/uL (0.1-1.2); Monocytes Percent Auto 8.3 % (2-11); Neutrophils Absolute Auto 4.1 x10*3/uL (2.0-8.3); Neutrophils Percent Auto 54.6 % (45-73); Platelet Count 139 X10*3/uL (160-400); Red Blood Count 4.42 X10*6/uL (4.20-5.50); Red Cell Distribution Width 12.5 % (11.0-16.0); White Blood Count 7.5 X10*3/uL (4.8-10.8)
[2022-09-27 14:21] VITALS: BP 109/66; PULSE 82
[2022-09-27 14:48] LABS: Alanine Aminotransferase 20 U/L (0-31); Albumin Level 4.1 g/dL (3.5-5.0); Alkaline Phosphatase 71 U/L (39-117); Anion Gap 11 (12-20); Aspartate Amino Transferase 25 U/L (5-31); Bilirubin Total 0.4 mg/dL (0.0-1.0); Blood Urea Nitrogen 13 mg/dL (9-16); Calcium 8.8 mg/dL (8.4-10.2); Carbon Dioxide 30 mmol/L (22-29); Chloride 104 mmol/L (96-108); Creatinine Clr Calc Pharmacy 73.6; Estimated Glomerular Filt Rate > 60; Glucose Random 90 mg/dL (60-115); Potassium 4.3 mmol/L (3.3-5.1); Sodium 141 mmol/L (135-145); Total Protein 6.7 g/dL (6.5-8.0)
== END 2022-09-27 16:13 | disposition left against medical advice (07) ==
PROVIDERS: Nurse Practitioner Family; Emergency Provider Emergency Medicine Emergency Medical Services; PCP Internal Medicine
DX: I95.9 Hypotension, unspecified (principal); E11.9 Type 2 diabetes mellitus without complications; F17.200 Nicotine dependence, unspecified, uncomplicated; Z79.899 Other long term (current) drug therapy; Z71.6 Tobacco abuse counseling
CPT/HCPCS: 36415; 80053; 85025; 99282; 99283

== ENCOUNTER 2022-10-22 09:52 | Outpatient (REF) | payer MEDICAID, SELFPAY ==
[2022-10-22 10:53] LABS: Amphetamine Screen Urine Not Detected (Not Detect); Barbiturates, Urine Not Detected (Not Detect); Benzodiazepines Screen Urine POSITIVE (Not Detect); Cannabinoid Screen Urine POSITIVE (Not Detect); Cocaine Screen Urine Not Detected (Not Detect); Fentanyl, urine POSITIVE (Not Detect); Opiate Screen Urine Not Detected (Not Detect); Phencyclidine Screen Urine Not Detected (Not Detect)
[2022-10-22 11:07] LABS: Alanine Aminotransferase 18 U/L (0-31); Aspartate Amino Transferase 20 U/L (5-31); C Reactive Protein 1.98 mg/dL (< or = 0.50); Estimated Glomerular Filt Rate > 60
[2022-10-22 11:30] LABS: Erythrocyte Sedimentation Rate 26 MM/HR (0-20)
[2022-10-29 08:12] LABS: Desmethyltramadol, Ur >10000
[2022-10-29 08:14] LABS: Tramadol, Ur >10000
== END 2022-10-22 09:53 | disposition home or self-care (01) ==
LOC: HO.LAB 09:52
PROVIDERS: PCP Internal Medicine; Visit Provider Nurse Practitioner Family
DX: M25.50 Pain in unspecified joint (principal); Z79.899 Other long term (current) drug therapy
CPT/HCPCS: 80307; 80373; 82565; 84450; 84460; 85652; 86140

== ENCOUNTER 2022-11-08 12:52 | Outpatient (REF) | payer MEDICAID, SELFPAY ==
[2022-11-08 14:59] LABS: Free T4 (Free Thyroxine) < 0.42 ng/dL (0.71-1.85); Thyroid Stimulating Hormone 8.44 uIU/mL (0.32-4.0)
[2022-11-14 05:13] LABS: Thyroglobulin Antibody <1 IU/mL (<=1); Thyroglobulin Level 0.3 ng/mL
== END 2022-11-08 12:53 | disposition home or self-care (01) ==
LOC: HO.LAB 12:52
PROVIDERS: PCP Internal Medicine; Visit Provider Internal Medicine
DX: Z85.850 Personal history of malignant neoplasm of thyroid (principal)
CPT/HCPCS: 36415; 84432; 84439; 84443; 86800

== ENCOUNTER 2022-11-13 11:14 | Outpatient (REF) | payer MEDICAID, SELFPAY ==
[2022-11-13 13:26] LABS: Free T4 (Free Thyroxine) < 0.42 ng/dL (0.71-1.85); Thyroid Stimulating Hormone 24.45 uIU/mL (0.32-4.0)
[2022-11-18 05:12] LABS: Thyroglobulin Antibody <1 IU/mL (<=1); Thyroglobulin Level 0.5 ng/mL
== END 2022-11-13 11:15 | disposition home or self-care (01) ==
LOC: HO.LAB 11:14
PROVIDERS: PCP Internal Medicine; Visit Provider Internal Medicine
DX: Z85.850 Personal history of malignant neoplasm of thyroid (principal)
CPT/HCPCS: 36415; 84432; 84439; 84443; 86800

== ENCOUNTER 2022-11-23 11:20 | Outpatient (REF) | payer MEDICAID, SELFPAY ==
[2022-11-23 13:16] LABS: Free T4 (Free Thyroxine) < 0.42 ng/dL (0.71-1.85); Thyroid Stimulating Hormone 46.19 uIU/mL (0.32-4.0)
[2022-11-29 07:03] LABS: Thyroglobulin Antibody <1 IU/mL (<=1); Thyroglobulin Level 1.5 ng/mL
== END 2022-11-23 11:21 | disposition home or self-care (01) ==
LOC: HO.LAB 11:20
PROVIDERS: PCP Internal Medicine; Visit Provider Internal Medicine
DX: E03.9 Hypothyroidism, unspecified (principal)
CPT/HCPCS: 36415; 84432; 84439; 84443; 86800

== ENCOUNTER 2023-01-04 11:19 | Outpatient (REF) | payer MEDICAID, SELFPAY ==
[2023-01-04 13:57] LABS: Free T4 (Free Thyroxine) 1.28 ng/dL (0.71-1.85); Thyroid Stimulating Hormone 0.07 uIU/mL (0.32-4.0)
== END 2023-01-04 11:20 | disposition home or self-care (01) ==
LOC: HO.LAB 11:19
PROVIDERS: PCP Internal Medicine; Visit Provider Internal Medicine
DX: E89.0 Postprocedural hypothyroidism (principal); Z85.850 Personal history of malignant neoplasm of thyroid
CPT/HCPCS: 36415; 84439; 84443; 99212

== ENCOUNTER 2023-01-13 22:53 | Emergency (ER) | payer MEDICAID, SELFPAY ==
--- NOTE | ~2023-01-13 | CT_ITS ---
EXAMINATION: CT ANGIOGRAM OF THE CHEST WITH AND WITHOUT CONTRAST (CT PULMONARY ANGIOGRAM FOR PE) CLINICAL INFORMATION: Reason for Exam cp COMPARISON: None available. TECHNIQUE: Prior to contrast administration, noncontrast localization images were obtained. Subsequently, multidetector volumetric imaging was performed from the thoracic inlet to below the diaphragms following the administration of 65 mL Omnipaque 350 intravenous contrast. No contrast reaction reported Sagittal, coronal, and MIP oblique sagittal reformatted images were obtained on the CT workstation, uploaded to PACS, and reviewed. This CT examination was performed using dose optimization techniques as appropriate, variously including the following: *Automated exposure control *Adjustment of mA and/or kV according to patient size (this includes techniques or standardized protocols for targeted exams where dose is matched to indication/reason for exam; i.e. extremities or head) *Use of iterative reconstruction technique Total exam dose-length product 228 mGy-cm FINDINGS: QUALITY OF STUDY/CONTRAST BOLUS: Satisfactory. PULMONARY ARTERIES: No pulmonary emboli. THORACIC AORTA: No aneurysm. LUNG: The lungs are well-expanded and clear of acute pneumonic process. There is a 6 lm nodule right middle lobe axial image 26/7. No additional nodules seen. There is left basilar groundglass attenuation likely compressive atelectasis. PLEURA: No pleural effusion or pneumothorax. MEDIASTINUM: Normal heart size. No pericardial effusion. There are small right hilar lymph nodes and a smaller left hilar lymph nodes as well. No evidence of septal bowing or right heart strain. CORONARY ARTERY CALCIFICATION: There is moderate coronary artery calcification present CHEST WALL/AXILLA: There is right mastectomy. No abnormal axillary lymph nodes or mass seen. OSSEOUS STRUCTURES: No aggressive lytic or sclerotic process seen. UPPER ABDOMEN: Visualized liver, spleen, pancreas and bilateral adrenal glands are unremarkable. The gallbladder has been surgically removed. No reflux of contrast into the hepatic veins to suggest elevated right heart pressures. CT/CT angio chest PE protocol IMPRESSION: 1. No evidence of PE. 2. No evidence of aortic aneurysm. 3. 6 mm nodule right middle lobe. VTE: negative. . A
--- NOTE | ~2023-01-13 | XR_ITS ---
EXAMINATION: XR CHEST CLINICAL INFORMATION: Chest pain COMPARISON: 12/16/2021 TECHNIQUE: Frontal view of the chest was obtained. FINDINGS: Heart size normal. There is no evidence of CHF. No pneumothorax. No consolidations, pleural effusions or lung masses are seen. Some mild left basilar scarring/atelectasis is present. There is been no interval change when compared to 12/16/2021 study. XR/XR chest 1V IMPRESSION: No acute intrathoracic disease.
[2023-01-13 23:00] VITALS: BP 130/70; PULSE 80; O2SAT 98
[2023-01-13 23:10] VITALS: BP 100/52; PULSE 76; RESP 19; TEMP 37.1; O2SAT 94; BMI 31.4
--- NOTE | 2023-01-13 23:13 | ECG_ITS ---
Test Reason : CHEST PAIN Blood Pressure : / mmHG Vent. Rate : 075 BPM Atrial Rate : 075 BPM P-R Int : 156 ms QRS Dur : 080 ms QT Int : 422 ms P-R-T Axes : 048 004 044 degrees QTc Int : 471 ms Normal sinus rhythm Normal ECG When compared with ECG of 16-DEC-2021 13:36, No significant change was found Referred By: Generic ED Physician Electronically Signed By:ROSI TAYLOR
[2023-01-13 23:25] LABS: Hematocrit 32.9 % (37.0-47.0); Mean Corpuscular Volume 83.9 fL (80.0-98.0); PLT CLUMP 1; Red Blood Count 3.92 X10*6/uL (4.20-5.50); SCAN SMEAR FLAG 1
[2023-01-13 23:27] LABS: Basophils Absolute Auto 0.1 X10*3/uL (0.0-0.2); Basophils Percent Auto 0.7 % (0-2); Eosinophils Absolute Auto 0.4 X10*3/uL (0.0-0.4); Eosinophils Percent Auto 4.2 % (0-4); Hemoglobin 11.1 g/dl (12.0-16.0); Imm Gran Abs Auto 0.03 X10*3/uL (0.00-0.03); Imm Gran Pct Auto 0.3 % (0.0-0.4); Lymphocytes Percent Auto 22.9 % (20-40); Mean Corpuscular HGB Conc 33.7 g/dl (31.0-35.0); Mean Corpuscular Hemoglobin 28.3 pg (27.0-33.0); Mean Platelet Volume 11.6 fL (9.4-12.3); Monocytes Absolute Auto 0.6 X10*3/uL (0.1-1.2); Monocytes Percent Auto 6.4 % (2-11); Neutrophils Absolute Auto 5.8 x10*3/uL (2.0-8.3); Neutrophils Percent Auto 65.5 % (45-73); Red Cell Distribution Width 12.5 % (11.0-16.0)
[2023-01-13 23:28] LABS: MANUAL DIFF FLAG NO; Platelet Count 128 X10*3/uL (160-400); White Blood Count 8.9 X10*3/uL (4.8-10.8)
[2023-01-13 23:47] LABS: Alanine Aminotransferase 28 U/L (0-31); Albumin Level 4.1 g/dL (3.5-5.0); Alkaline Phosphatase 67 U/L (39-117); Anion Gap 13 (12-20); Aspartate Amino Transferase 26 U/L (5-31); Bilirubin Total 0.2 mg/dL (0.0-1.0); Blood Urea Nitrogen 12 mg/dL (9-16); Calcium 9.4 mg/dL (8.4-10.2); Carbon Dioxide 29 mmol/L (22-29); Chloride 104 mmol/L (96-108); Creatinine Clr Calc Pharmacy 67.7; Estimated Glomerular Filt Rate > 60; Glucose Random 122 mg/dL (60-115); Sodium 142 mmol/L (135-145); Total Protein 6.8 g/dL (6.5-8.0); Troponin-I High Sensitivity < 2.7 ng/L (<3.5-17.0)
--- NOTE | 2023-01-14 00:40 | ED.CHESTPAIN ---
HPI - Chest Pain General Chief Complaint: Chest Pain Stated Complaint: chest pain Time Seen by Provider: 01/13/23 23:29 History of Present Illness HPI narrative: Patient is 62 years old with a history of fibromyalgia. History of breast cancer over 20 years ago. History of diabetes. No history of hypertension, hypercholesterolemia. No history of [place]. Complaining of chest pain that goes to her neck. Not associated with any shortness of breath no diaphoresis. History of similar pain in the past. The pain has been fairly constant all day. Not associated with deep breath. No leg swelling. No history of blood clots in the past. No coughing or congestion upper respiratory symptoms. She does have a history of smoking. From home. No travel history. Related Data Home Medications Medication Instructions Recorded Confirmed albuterol sulfate 90 mcg/actuation 2 puff inhalation Q6H PRN Wheezing 05/27/20 01/04/23 aerosol inhaler aspirin 81 mg tablet,delayed 81 mg PO DAILY 05/27/20 01/04/23 release atorvastatin 40 mg tablet 40 mg PO DAILY 05/27/20 01/04/23 fluticasone propionate 110 1 puff inhalation BID 05/27/20 01/04/23 mcg/actuation HFA aerosol inhaler (Flovent HFA) lanolin alcohols-mineral 1 applic topical DAILY 05/27/20 01/04/23 oil-w.petrolatum-ceresin topical cream (Eucerin topical cream) sennosides 8.6 mg tablet (senna) 8.6 mg PO DAILY 05/27/20 01/04/23 blood sugar diagnostic (FreeStyle #10 ea 08/23/22 01/04/23 Lite Strips) bupropion HCl 150 mg 24 hr tablet, 150 mg PO QAM 08/23/22 01/04/23 extended release bupropion HCl 300 mg 24 hr tablet, 300 mg PO DAILY 08/23/22 01/04/23 extended release calcium carbonate 500 mg calcium 500 mg PO BID 08/23/22 01/04/23 (1,250 mg) tablet (Oyster Shell Calcium 500) cholecalciferol (vitamin D3) 25 25 mcg PO DAILY 08/23/22 01/04/23 mcg (1,000 unit) tablet diclofenac sodium 1 % topical gel 2 g topical TID 08/23/22 01/04/23 docusate sodium 100 mg capsule 100 mg PO BID 08/23/22 01/04/23 escitalopram oxalate 10 mg tablet 10 mg PO QAM 08/23/22 01/04/23 fluticasone propionate 50 1 spray intranasal BID 08/23/22 01/04/23 mcg/actuation nasal spray,suspension hydroxyzine HCl 50 mg tablet 50 mg PO BEDTIME 08/23/22 01/04/23 lancets 33 gauge (TRUEplus Lancets) #100 ea 08/23/22 01/04/23 loratadine 10 mg tablet 10 mg PO DAILY PRN allergies 08/23/22 01/04/23 lorazepam 1 mg tablet 1 mg PO DAILY PRN anxiety 08/23/22 01/04/23 mirtazapine 7.5 mg tablet 7.5 mg PO BEDTIME 08/23/22 01/04/23 omeprazole 20 mg capsule,delayed 20 mg PO DAILY 08/23/22 01/04/23 release polyethylene glycol 3350 17 17 g PO DAILY 08/23/22 01/04/23 gram/dose oral powder Previous Rx's Medication Instructions Recorded sitagliptin phosphate 100 mg 100 mg PO DAILY #30 tabs 04/09/22 tablet (Januvia) levothyroxine 175 mcg tablet 175 mcg PO DAILY 30 days #30 tabs 10/31/22 Allergies Allergy/AdvReac Type Severity Reaction Status Date / Time No Known Allergies Allergy Verified 01/14/23 01:04 Review of Systems Review of Systems: Positive chest pain Yes all other systems are reviewed and are negative PMFSH Past Medical History Attestation statement: The following information was validated with the patient. Medical History Diabetes type 2, controlled Diabetic polyneuropathy associated with type 2 diabetes mellitus Dyslipidemia Fibromyalgia H/O malignant neoplasm of skin History of thyroid cancer Hyperparathyroidism Hypotension Lumbar spondylosis Osteoarthritis of knees, bilateral Osteopenia Post-surgical hypothyroidism Postsurgical hypothyroidism Primary thyroid cancer Vitamin D deficiency Vitamin D deficiency Surgical History History of biopsy History of bunionectomy History of carpal tunnel release History of lip cancer Hx of cholecystectomy Hx of colonoscopy Hx of hysterectomy Hx of mastectomy Hx of thyroidectomy Family History Family History Father Diabetes mellitus Mother Cancer of eye Skin cancer of nose Social History Social History Household Members: None Housing: Apartment Are you a primary care director rn to a significant other at home: No Do you 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 have 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 Oriented X3. No acute distress. Eyes: Pupils equal, round and reactive to light. ENT: Pharynx normal. Neck: Normal inspection. Neck supple. No lymph nodes noted. No crepitus CVS: Normal heart rate and rhythm. Pulses normal. Normal S1 and S2 Respiratory: No respiratory distress. Breath sounds normal. No Wheezing. No rales Abdomen: Soft and nontender. No rigidity. No distention. good BS x4 Skin: Skin warm and dry. Normal skin color. Normal skin turgor. Extremities: No lower extremity edema. Neurovascular intact to all extremities. No Lacerations. No Rash Neuro: Oriented X 3. No motor deficit. No sensory deficit. Moving all extermities. No slurred speech Medications Administered Discontinued Medications Generic Name Dose Route Start Last Admin Trade Name Freq PRN Reason Stop Dose Admin Hydromorphone HCl 0.5 mg 01/14/23 00:28 01/14/23 01:02 Hydromorphone Hcl 0.5 Mg/0.5 Ml Syringe IVPUSH 01/14/23 00:29 0.5 mg ONCE ONE Administration Protocol Iohexol 65 ml 01/14/23 01:41 01/14/23 01:42 Iohexol 350 Mg/Ml 100 Ml Infus..Btl IV 01/14/23 01:42 65 ml ONCE ONE Administration Medical Decision Making Medical Decision Making [facility] Narrative: well-appearing no acute distress chest pain atypical for ACS. First set of cardiac enzymes are negative. My interpretation of the patient's EKG showed a sinus rhythm heart rate is 75 MI QRS QTC within normal limits when compared to previous EKG is grossly unchanged. Patient's history not consistent with pneumonia pneumothorax. Chest x-ray was negative. Given patient has chest pain with a history of cancer question thyroid cancer will go ahead and get a CTA to rule out the possibility of PE. CTA of the chest showed no evidence of PE. There is a pulmonary nodule noted. This finding was explained to the patient. Will discharge patient home. In stable condition. Differential Diagnosis Differential Diagnoses: The differential diagnosis associated with the presentation includes ACS, pneumonia, pneumothorax, dissection, PE Lab Data [facility] Lab Attestation statement: I reviewed the patient's lab results. 01/13/23 23:21 01/13/23 23:21 Labs: Lab Results 01/13/23 01/13/23 01/13/23 Range/Units 23:21 23:21 23:21 WBC 8.9 (4.8-10.8) X10*3/uL RBC 3.92 L (4.20-5.50) X10*6/uL Hgb 11.1 L (12.0-16.0) g/dl Hct 32.9 L (37.0-47.0) % MCV 83.9 (80.0-98.0) fL MCH 28.3 (27.0-33.0) pg MCHC 33.7 (31.0-35.0) g/dl RDW 12.5 (11.0-16.0) % Plt Count 128 L (160-400) X10*3/uL MPV 11.6 (9.4-12.3) fL Immature Gran % (Auto) 0.3 (0.0-0.4) % Neut % (Auto) 65.5 (45-73) % Lymph % (Auto) 22.9 (20-40) % [place] % (Auto) 6.4 (2-11) % Eos % (Auto) 4.2 H (0-4) % Baso % (Auto) 0.7 (0-2) % Lymph # (Auto) 2.0 (1.2-4.9) X10*3/uL [place] # (Auto) 0.6 (0.1-1.2) X10*3/uL Eos # (Auto) 0.4 (0.0-0.4) X10*3/uL Baso # (Auto) 0.1 (0.0-0.2) X10*3/uL Abs Immat Gran (auto) 0.03 (0.00-0.03) X10*3/uL Absolute Neuts (auto) 5.8 (2.0-8.3) x10*3/uL Absolute Nucleated RBC 0.000 (0.0-0.012) X10*3/uL Nucleated RBC % (auto) 0.0 (0.0-0.2) /100WBC Sodium 142 (135-145) mmol/L Potassium 4.0 (3.3-5.1) mmol/L Chloride 104 (96-108) mmol/L Carbon Dioxide 29 (22-29) mmol/L Anion Gap 13 (12-20) BUN 12 (9-16) mg/dL Creatinine 0.79 (0.5-1.4) mg/dL Estim Creat Clear Calc 67.7 Estimated GFR > 60 Random Glucose 122 H (60-115) mg/dL Calcium 9.4 (8.4-10.2) mg/dL Total Bilirubin 0.2 (0.0-1.0) mg/dL AST 26 (5-31) U/L ALT 28 (0-31) U/L Alkaline Phosphatase 67 (39-117) U/L Troponin I High Sens < 2.7 (<3.5-17.0) ng/L Total Protein 6.8 (6.5-8.0) g/dL Albumin 4.1 (3.5-5.0) g/dL 01/14/23 Range/Units 01:00 WBC (4.8-10.8) X10*3/uL RBC (4.20-5.50) X10*6/uL Hgb (12.0-16.0) g/dl Hct (37.0-47.0) % MCV (80.0-98.0) fL MCH (27.0-33.0) pg MCHC (31.0-35.0) g/dl RDW (11.0-16.0) % Plt Count (160-400) X10*3/uL MPV (9.4-12.3) fL Immature Gran % (Auto) (0.0-0.4) % Neut % (Auto) (45-73) % Lymph % (Auto) (20-40) % [place] % (Auto) (2-11) % Eos % (Auto) (0-4) % Baso % (Auto) (0-2) % Lymph # (Auto) (1.2-4.9) X10*3/uL [place] # (Auto) (0.1-1.2) X10*3/uL Eos # (Auto) (0.0-0.4) X10*3/uL Baso # (Auto) (0.0-0.2) X10*3/uL Abs Immat Gran (auto) (0.00-0.03) X10*3/uL Absolute Neuts (auto) (2.0-8.3) x10*3/uL Absolute Nucleated RBC (0.0-0.012) X10*3/uL Nucleated RBC % (auto) (0.0-0.2) /100WBC Sodium (135-145) mmol/L Potassium (3.3-5.1) mmol/L Chloride (96-108) mmol/L Carbon Dioxide (22-29) mmol/L Anion Gap (12-20) BUN (9-16) mg/dL Creatinine (0.5-1.4) mg/dL Estim Creat Clear Calc Estimated GFR Random Glucose (60-115) mg/dL Calcium (8.4-10.2) mg/dL Total Bilirubin (0.0-1.0) mg/dL AST (5-31) U/L ALT (0-31) U/L Alkaline Phosphatase (39-117) U/L Troponin I High Sens < 2.7 (<3.5-17.0) ng/L Total Protein (6.5-8.0) g/dL Albumin (3.5-5.0) g/dL Independent Interpretation I performed an independent interpretation of an: EKG Interpretation: sinus heart rate is 70 5p ox shows QT within normal limits is no acute ST segment elevation noted. Radiology Impression Discussion of test interpretation with radiology: I have reviewed the radiologist's reading. External Record Review External record reviewed: Inpatient record Chronic Conditions Patient?s care impacted by: Diabetes Fibromyalgia Discharge Plan Discharge Clinical Impression: Diabetes type 2, controlled, Chest pain Patient Disposition: Home, Self-Care Instructions: Chest Pain (DC) Additional Instructions: a lung nodule was noted in your right middle lung. A repeat CT scan is needed to follow-up for this nodule. Please follow-up with your primary physician. Prescriptions: No Action Januvia 100 mg tablet 100 mg PO DAILY Qty: 30 6RF levothyroxine 175 mcg tablet 175 mcg PO DAILY 30 Days Qty: 30 3RF Eucerin Cream 1 applic topical DAILY aspirin 81 mg tablet,delayed release (DR/EC) 81 mg PO DAILY atorvastatin 40 mg tablet 40 mg PO DAILY sennosides [senna] 8.6 mg tablet 8.6 mg PO DAILY albuterol sulfate 90 mcg/actuation HFA aerosol inhaler 2 puff inhalation Q6H PRN (Reason: Wheezing) Flovent HFA 110 mcg/actuation HFA aerosol inhaler 1 puff inhalation BID cholecalciferol (vitamin D3) 25 mcg (1,000 unit) tablet 25 mcg PO DAILY calcium carbonate [Oyster Shell Calcium 500] 500 mg calcium (1,250 mg) tablet 500 mg PO BID loratadine 10 mg tablet 10 mg PO DAILY PRN (Reason: allergies) docusate sodium 100 mg capsule 100 mg PO BID diclofenac sodium 1 % gel 2 g topical TID lorazepam 1 mg tablet 1 mg PO DAILY PRN (Reason: anxiety) mirtazapine 7.5 mg tablet 7.5 mg PO BEDTIME bupropion HCl 300 mg tablet extended release 24 hr 300 mg PO DAILY hydroxyzine HCl 50 mg tablet 50 mg PO BEDTIME omeprazole 20 mg capsule,delayed release(DR/EC) 20 mg PO DAILY polyethylene glycol 3350 17 gram/dose powder 17 g PO DAILY fluticasone propionate 50 mcg/actuation spray,suspension 1 spray intranasal BID bupropion HCl 150 mg tablet extended release 24 hr 150 mg PO QAM escitalopram oxalate 10 mg tablet 10 mg PO QAM (DME) lancets [TRUEplus Lancets] 33 gauge misc See Rx Instructions .ROUTE QID Qty: 100 Rx Instructions: As directed (DME) FreeStyle Lite Strips Strip See Rx Instructions .ROUTE QID Qty: 10 Rx Instructions: As directed Referrals: PhysicianLacey [Primary Care Provider] - 01/17/23 Ernie Callaway MD [Physician] - 01/17/23 Print Language: Bahraini
[2023-01-14 00:56] VITALS: BP 109/63; PULSE 69; RESP 19; O2SAT 96
[2023-01-14] MEDS: HYDROmorphone HCl 0.5 MG/0.5 ML SYRINGE IVPUSH (01:02)
[2023-01-14 01:34] LABS: Troponin-I High Sensitivity < 2.7 ng/L (<3.5-17.0)
[2023-01-14] MEDS: iohexoL 350 MG/ML 100 ML INFUS..BTL 65 ML IV (01:42)
[2023-01-14 03:16] VITALS: BP 110/49; PULSE 65; RESP 14; TEMP 36.8; O2SAT 96
== END 2023-01-14 03:30 | disposition home or self-care (01) ==
PROVIDERS: Emergency Provider Emergency Medicine Emergency Medical Services
DX: R07.9 Chest pain, unspecified (principal); E11.9 Type 2 diabetes mellitus without complications; R91.1 Solitary pulmonary nodule; E78.5 Hyperlipidemia, unspecified; F17.200 Nicotine dependence, unspecified, uncomplicated; Z85.3 Personal history of malignant neoplasm of breast; Z79.82 Long term (current) use of aspirin; Z79.899 Other long term (current) drug therapy; Z79.02 Long term (current) use of antithrombotics/antiplatelets; Z79.84 Long term (current) use of oral hypoglycemic drugs
CPT/HCPCS: 36415; 71045; 71275; 80053; 84484; 85025; 93005; 96374; 99284; J1170; Q9967

== ENCOUNTER 2023-07-23 16:08 | Outpatient (REF) | payer MEDICAID, SELFPAY | END 2023-07-23 16:09 | disposition home or self-care (01) | LOC: HO.CHCLNP 16:08 | PROVIDERS: Visit Provider Advanced Practice Midwife | DX: R30.0 Dysuria (principal) | CPT/HCPCS: 87086 ==

== ENCOUNTER 2023-08-05 10:34 | Outpatient (AMB) | payer MEDICAID, SELFPAY ==
[2023-08-05 10:36] VITALS: BP 126/60; PULSE 88; BMI 31.1
--- NOTE | 2023-08-05 10:36 | MHC.OFFVIS ---
Intake Vital Signs 08/05/23 10:36 Height 5 ft 1 in Weight 164 lb 7.437 oz BMI 31.1 BP 126/60 Blood Pressure Location Lt brachial Position Sitting Pulse 88 Pulse Source Pulse Oximeter Intake Visit Reasons: Thyroid cancer-confirmed Intake Note: Patient present today for Thyroid cancer follow up. Last seen 01/04/[address] Kumar. Retail Loan Originator Assistant Required: Yes Retail Loan Originator Assistant Language: Neurobiologist Name: Abby medical staff Information Interpreted: non-clinical & clinical Accompanied by: Spouse Allergies No Known Allergies Allergy (Verified 08/05/23 10:43) Medication List - Last Reconciled 08/05/23 by Jose Luis Mclaughlin MD albuterol sulfate 90 mcg/actuation 2 puffs inhalation Q6H PRN aspirin 81 mg PO DAILY atorvastatin 40 mg PO DAILY blood sugar diagnostic (FreeStyle Lite Strips) As directed bupropion HCl 300 mg PO DAILY bupropion HCl 150 mg PO QAM calcium carbonate (Oyster Shell Calcium 500) 500 mg PO BID cholecalciferol (vitamin D3) 25 mcg PO DAILY diclofenac sodium 1% 2 grams topical TID docusate sodium 100 mg PO BID escitalopram oxalate 10 mg PO QAM fluticasone propionate 110 mcg/actuation (Flovent HFA) 1 puff inhalation BID fluticasone propionate 50 mcg/actuation 1 spray intranasal BID hydroxyzine HCl 50 mg PO BEDTIME lancets (TRUEplus Lancets) As directed lanolin [id number].pet-ceres (Eucerin topical cream) 1 appl topical DAILY levothyroxine 175 mcg PO DAILY loratadine 10 mg PO DAILY PRN lorazepam 1 mg PO DAILY PRN mirtazapine 7.5 mg PO BEDTIME omeprazole 20 mg PO DAILY polyethylene glycol 3350 17 grams PO DAILY sennosides (senna) 8.6 mg PO DAILY sitagliptin phosphate (Januvia) 100 mg PO DAILY HPI HPI Comments History of Present Illness Details 62 YO Female with a PMHx of 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 She was previously followed by Dr. Lake. The patient last saw Dr. Kumar on 01/04/2023 She was initially diagnosed with multifocal papillary thyroid cancer and underwent a total thyroidectimy 03/09/2014. Official surgical path revealed 2 foci of PTC each measuring 1 cm, contained within the L lobe of the thyroid. There was microscopic extrathyroidal extension involving the perithyroidal tissue. Margins were negative. There was lymphatic invasion identified. 07/22 perithyroidal lymph nodes were positive for metastatic disease. Incidentally the right superior and a portion of the left inferior parathyroid glands were resected. This was [id number]. BRAF V600E mutation analysis was negative. She was treated with 132.6 mCi of I131 06/21/2014. Post-treatment scan revealed uptake within the left inferior thyroid bed. Labs at that time 06/14/2014 revealed TSH 39.4, TG 17 and TGAb <20. She had a repeat WBS completed 10/02/2021. This revealed focal intense uptake within the L thyroid bed. Upatke was otherwise physiologic. Labs at that time 09/25/2021 with TSH 41.63, TG 1.7 and TGAB <1. She underwent an US head and neck 10/16/2021 which revealed mildly enlarged, normal appearing lymph nodes in the L level II and III cervical regions. She underwent FNA biopsy of these 10/16/2021 with no evidence of malignancy, and negative TG washout. She was referred to [facility] at that time and saw Dr. Tejeda. She underwent repeat US head and neck which revealed no pathologic appearing lymph nodes. She was asked to follow up in 6 weeks time but failed to do so. She remains on levothyroxine 175 mcg PO 7 days a week. She underwent an I131 WBS 11/30/2022 via thyroid hormone withdrawal. Labs 11/23/2022 TSH 46.3, TG 1.5 and TGAB negative. WBS revealed a persistent small focus of radiotracer uptake in the left neck, not significantly changed. Otherwise there was physiologic distribution of radiotracer. She reports feeling well today and has no complaints. She does have a history of breast cancer that was treated with radiation therapy. The lower neck was included in her radiation field. US Head and Neck: 10/16/2021 THYROID BED: Prior thyroidectomy. No residual thyroid tissue demonstrated in the thyroid bed. No cystic or solid nodules demonstrated in the thyroid bed. RIGHT NECK SOFT TISSUES: Scattered architecturally normal nodes are present. The nodes show normal fatty hilus, normal cortical thickness, and no cystic change or calcification. No abnormal color flow. The largest nodes are as follows: Level 2: 0.9 x 0.4 x 0.9 cm. Normal ryan architecture. Level 3: 0.8 x 0.3 x 0.6 cm. Normal ryan architecture. LEFT NECK SOFT TISSUES: Scattered architecturally normal nodes are present. The nodes show normal fatty hilus, normal cortical thickness, and no cystic change or calcification. No abnormal color flow. The largest nodes are as follows: Level 3: 1.7 x 0.5 x 0.6 cm. Normal ryan architecture. Level 2: 1.3 x 0.5 x 1.3 cm. Normal ryan architecture. Labs: Laboratory Tests 11/23/22 11/23/22 11:30 11:30 TSH 46.19 H Free T4 < 0.42 L Thyroglobulin 1.5 H Thyroglobulin Anti body <1 According to pt's , pt went back to [facility] who saw abnl LN . Was supposed to return 12/2023 [facility] Medical History Diabetes type 2, controlled Diabetic polyneuropathy associated with type 2 diabetes mellitus Dyslipidemia Fibromyalgia H/O malignant neoplasm of skin History of thyroid cancer Hyperparathyroidism Hypotension Lumbar spondylosis Osteoarthritis of knees, bilateral Osteopenia Post-surgical hypothyroidism Postsurgical hypothyroidism Primary thyroid cancer Vitamin D deficiency Vitamin D deficiency Surgical History History of biopsy History of bunionectomy History of carpal tunnel release History of lip cancer Hx of cholecystectomy Hx of colonoscopy Hx of hysterectomy Hx of mastectomy Hx of thyroidectomy Family History Father Diabetes mellitus Mother Cancer of eye Skin cancer of nose Social History Household Members: None Housing: Apartment Are you a primary client care specialist to a significant other at home: No Do you presently have visiting nurse or other home services: 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 There is no cervical adenopathy palpated Assessment & Plan Assessment & Plan (1) Primary thyroid cancer: Code(s): C73 - Malignant neoplasm of thyroid gland Plan: 62 YO Female with a PMHx of multifocal papillary thyroid cancer (1 cm x 2 foci) with 1/ lymph nodes positive for metastatic disease, S/P a total thyroidectomy in 03/09/2014 with adjuvant treatment with 132.6 mCi 06/21/2014. She had a WBS completed 10/02/2021 which revealed intense uptake within the L thyroid bed. Her labs indicated a structural incomplete response with stimulated TG level of 1.7. She did undergo FNA biopsy of 2 lymph nodes identified within the L cervical chain, 1 level II and 1 level III, both with no evidence of malignancy and negative TG washout. She was referred to [facility] and saw Dr. Tejeda 01/2022. She had a repeat US head and neck which revealed no abnormal cervical lymph nodes. She then had a repeat WBS 11/30/2022 which revealed a persistent small focus of radiotracer uptake in the left neck. Plan is to recheck TSH, free T4, free T3 and thyroglobulin. We will then adjust levothyroxine accordingly and keep TSH between 0.1 and low limit of normal for now.. Patient should follow-up with [facility]. We will try to obtain last office note from [facility] Orders: Orders Free T4 (Free Thyroxine) Today C73 - Malignant neoplasm of thyroid gland Thyroid Stimulating Hormone Today C73 - Malignant neoplasm of thyroid gland Triiodothyronine T3 Free Today C73 - Malignant neoplasm of thyroid gland Thyroglobulin Tumor Marker Today C73 - Malignant neoplasm of thyroid gland Coding Level of Care Code Est Pt Level 3 (99238) Diagnoses Primary thyroid cancer C73
== END 2023-08-05 11:03 | disposition home or self-care (01) ==
PROVIDERS: PCP Internal Medicine; Referring Provider Internal Medicine; Visit Provider Internal Medicine Endocrinology, Diabetes & Metabolism
DX: C73 Malignant neoplasm of thyroid gland (principal)
CPT/HCPCS: 99213

== ENCOUNTER → 2023-08-05 10:34 | Outpatient (BNVA) | payer MEDICAID, SELFPAY | PROVIDERS: PCP Internal Medicine; Visit Provider Internal Medicine Endocrinology, Diabetes & Metabolism | DX: C73 Malignant neoplasm of thyroid gland (principal) ==

== ENCOUNTER 2023-08-05 11:08 | Outpatient (REF) | payer MEDICAID, SELFPAY ==
[2023-08-05 14:04] LABS: Free T4 (Free Thyroxine) 1.18 ng/dL (0.71-1.85); Thyroid Stimulating Hormone < 0.01 uIU/mL (0.32-4.0)
[2023-08-06 06:03] LABS: Triiodothyronine T3 Free 3.9 pg/mL (2.3-4.2)
[2023-08-08 05:15] LABS: Thyroglobulin Antibody <1 IU/mL (<=1); Thyroglobulin Level 0.1 ng/mL
== END 2023-08-05 11:09 | disposition home or self-care (01) ==
LOC: HO.10HDL 11:08
PROVIDERS: Visit Provider Internal Medicine Endocrinology, Diabetes & Metabolism
DX: C73 Malignant neoplasm of thyroid gland (principal); Z79.899 Other long term (current) drug therapy
CPT/HCPCS: 36415; 84432; 84439; 84443; 84481; 86800; 99212

== ENCOUNTER 2023-08-15 10:56 | Outpatient (REF) | payer MEDICAID, SELFPAY ==
--- NOTE | ~2023-08-15 | MM_ITS ---
EXAMINATION: BONE DENSITOMETRY CLINICAL INDICATION: Personal history of breast cancer. Osteopenia. COMPARISON: Previous BD dated 04/12/2021 and baseline BD dated 05/10/2011. TECHNIQUE: Using a [employer] DXA System (software version: 13.1) manufactured by [employer], dual-energy x-ray absorptiometry was performed of the lumbar spine and left hip. The images are of good technical quality. Summary results are attached. FINDINGS: LEFT FEMUR, NECK: Current: BMD 0.983 g/cm2, Z-score 0.9, T-score -0.4, normal. Prior: BMD 0.974 g/cm2. Baseline: BMD 1.052 g/cm2. LEFT FEMUR, TOTAL: Current: BMD 1.130 g/cm2, Z-score 1.9, T-score 1.0, normal, 0.3% decrease from previous, 0.1% decrease from baseline (<5% change is not significant). Prior: BMD 1.133 g/cm2. Baseline: BMD 1.131 g/cm2. AP SPINE L1-L4: Current: BMD 0.990 g/cm2, Z-score -0.3, T-score -1.6, osteopenia, 2.4% increase from previous, 4.9% decrease from baseline (<5% change is not significant). Prior: BMD 0.967 g/cm2. Baseline: BMD 1.041 g/cm2. LEFT FOREARM RADIUS 33%: BMD 0.761 g/cm2, Z-score -0.1, T-score -1.3, osteopenia. IDENTIFIED RISK FACTORS: Early menopause, glucocorticoids (chronic), hyperparathyroid, hysterectomy, secondary osteoporosis, tobacco user (current smoker). HISTORY OF FRACTURE: None listed. MEDICATIONS: Vitamin D. MM/XR DEXA axial skeleton IMPRESSION: 1. DIAGNOSIS: Osteopenia based on the lowest T-score value of -1.6 in the lumbar spine applying World Health Organization criteria. 2. 10-YEAR FRACTURE RISK PREDICTION, FRAX: Major osteoporotic fracture (clinical spine, forearm, hip or shoulder) 5.9%. Hip fracture 0.5%. 3. Treatment Recommendations: NOF guidelines recommend consideration for treatment in postmenopausal women and men age 50 and older presenting with the following: -A hip or vertebral (clinical or morphometric) fracture. -T-score less than or equal to -2.5 at the femoral neck or spine after appropriate evaluation to exclude secondary causes. -Low bone mass at the hip or spine and a 10-year fracture probability by FRAX of greater than or equal to 3% for hip fracture or greater than or equal to 20% for major osteoporotic fracture based on the [place] adapted WHO algorithm. 4. Other Recommendations: All treatment decisions require clinical judgment and consideration of individual patient factors, including patient preferences, comorbidities, previous drug use, risk factors not captured in the FRAX model (e.g. frailty, falls, vitamin D deficiency, increased bone turnover, interval significant decline in bone density) and possible under or overestimation of fracture risk by FRAX. Additional medical evaluation for secondary cause of low bone mineral density may be appropriate. FUTURE SCAN RECOMMENDATION: People with diagnosed cases of osteoporosis or at high risk for fracture should have regular bone mineral density tests. For patients eligible for Medicare, routine testing is allowed once every 2 years. The testing frequency can be increased to one year for patients who have rapidly progressing disease, those who are receiving or discontinuing medical therapy to restore bone mass, or have additional risk factors.
== END 2023-08-15 10:57 | disposition home or self-care (01) ==
LOC: HO.MAMMO 10:56
PROVIDERS: PCP Advanced Practice Midwife; Visit Provider Advanced Practice Midwife
DX: Z13.820 Encounter for screening for osteoporosis (principal); N95.9 Unspecified menopausal and perimenopausal disorder
CPT/HCPCS: 77080

== ENCOUNTER 2023-09-19 12:10 | Outpatient (REF) | payer MEDICAID, SELFPAY ==
--- NOTE | ~2023-09-19 | MM_ITS ---
EXAMINATION: MM SCREENING DIGITAL BREAST TOMOSYNTHESIS, LEFT CLINICAL INFORMATION: Screening. Asymptomatic. The patient is status post right mastectomy. COMPARISON: Mammography: This study is compared with prior exams dating back to TECHNIQUE: Digital breast tomosynthesis is performed in both the craniocaudal and mediolateral oblique views along with computer-aided detection (CAD). Synthesized 2D images are generated from the tomosynthesis. FINDINGS: There are scattered areas of fibroglandular density (ACR BI-RADS breast composition Category b). There are no significant masses, abnormal calcifications, or other abnormalities. MM/MM tomosynthesis screening LT IMPRESSION: No mammographic evidence of malignancy. ASSESSMENT: BI-RADS BI-RADS 1 - Negative RECOMMENDATION: Routine annual mammography screening. 1 year F/U This examination should not preclude the clinical evaluation of a suspicious palpable abnormality. This patient's information was entered into a reminder system with a target due date for their next mammogram.
== END 2023-09-19 12:11 | disposition home or self-care (01) ==
LOC: HO.MAMMO 12:10
PROVIDERS: Visit Provider Advanced Practice Midwife
DX: Z12.31 Encounter for screening mammogram for malignant neoplasm of breast (principal)
CPT/HCPCS: 77063; 77067

== ENCOUNTER → 2023-09-19 12:30 | Outpatient (BNV) | payer MEDICAID, SELFPAY | PROVIDERS: Visit Provider Radiology Diagnostic Radiology | DX: Z12.31 Encounter for screening mammogram for malignant neoplasm of breast (principal) | CPT/HCPCS: 77063; 77067 ==

== ENCOUNTER 2024-01-02 10:56 | Outpatient (AMB) | payer MEDICAID, SELFPAY ==
[2024-01-02 11:00] VITALS: BP 134/60; PULSE 86; BMI 28.7
--- NOTE | 2024-01-02 11:00 | A.OFFVIS_ITS ---
Vital Signs 01/02/24 11:00 Height 5 ft 1 in Weight 152 lb 1.903 oz BMI 28.7 BP 134/60 Blood Pressure Location Lt brachial Position Sitting Pulse 86 Pulse Source Pulse Oximeter Intake Visit Reasons: Thyroid cancer-confirmed Intake Note: Patient present today for Thyroid cancer follow up visit. 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 She was previously followed by Dr. Lake. She was initially diagnosed with multifocal papillary thyroid cancer and underwent a total thyroidectimy 03/09/2014. Official surgical path revealed 2 foci of PTC each measuring 1 cm, contained within the L lobe of the thyroid. There was microscopic extrathyroidal extension involving the perithyroidal tissue. Margins were negative. There was lymphatic invasion identified. 07/22 perithyroidal lymph nodes were positive for metastatic disease. Incidentally the right superior and a portion of the left inferior parathyroid glands were resected. This was [id number]. BRAF V600E mutation analysis was negative. She was treated with 132.6 mCi of I131 06/21/2014. Post-treatment scan revealed uptake within the left inferior thyroid bed. Labs at that time 06/14/2014 revealed TSH 39.4, TG 17 and TGAb <20. She had a repeat WBS completed 10/02/2021. This revealed focal intense uptake within the L thyroid bed. Upatke was otherwise physiologic. Labs at that time 09/25/2021 with TSH 41.63, TG 1.7 and TGAB <1. She underwent an US head and neck 10/16/2021 which revealed mildly enlarged, normal appearing lymph nodes in the L level II and III cervical regions. She underwent FNA biopsy of these 10/16/2021 with no evidence of malignancy, and negative TG washout. She was referred to [facility] at that time and saw Dr. Tejeda. She underwent repeat US head and neck which revealed no pathologic appearing lymph nodes. She was asked to follow up in 6 weeks time but failed to do so. She remains on levothyroxine 175 mcg PO 7 days a week. She underwent an I131 WBS 11/30/2022 via thyroid hormone withdrawal. Labs 11/23/2022 TSH 46.3, TG 1.5 and TGAB negative. WBS revealed a persistent small focus of radiotracer uptake in the left neck, not significantly changed. Otherwise there was physiologic distribution of radiotracer. She reports feeling well today and has no complaints. She does have a history of breast cancer that was treated with radiation the [facility]. The lower neck was included in her radiation field. US Head and Neck: 10/16/2021 THYROID BED: Prior thyroidectomy. No residual thyroid tissue demonstrated in the thyroid bed. No cystic or solid nodules demonstrated in the thyroid bed. RIGHT NECK SOFT TISSUES: Scattered architecturally normal nodes are present. The nodes show normal fatty hilus, normal cortical thickness, and no cystic change or calcification. No abnormal color flow. The largest nodes are as follows: Level 2: 0.9 x 0.4 x 0.9 cm. Normal ryan architecture. Level 3: 0.8 x 0.3 x 0.6 cm. Normal ryan architecture. LEFT NECK SOFT TISSUES: Scattered architecturally normal nodes are present. The nodes show normal fatty hilus, normal cortical thickness, and no cystic change or calcification. No abnormal color flow. The largest nodes are as follows: Level 3: 1.7 x 0.5 x 0.6 cm. Normal ryan architecture. Level 2: 1.3 x 0.5 x 1.3 cm. Normal ryan architecture. Labs: Laboratory Tests 11/23/22 11/23/22 11:30 11:30 TSH 46.19 H Free T4 < 0.42 L Thyroglobulin 1.5 H Thyroglobulin Antibody <1 According to pt's , pt went back to [facility] who saw abnl LN . Last note states nl LN . On 150 ug of levothyroxine [facility] Medical History Diabetes type 2, controlled Diabetic polyneuropathy associated with type 2 diabetes mellitus Dyslipidemia Fibromyalgia H/O malignant neoplasm of skin History of thyroid cancer Hyperparathyroidism Hypotension Lumbar spondylosis Osteoarthritis of knees, bilateral Osteopenia Post-surgical hypothyroidism Postsurgical hypothyroidism Primary thyroid cancer Vitamin D deficiency Vitamin D deficiency Surgical History History of lip cancer History of biopsy History of bunionectomy Hx of cholecystectomy Hx of thyroidectomy Hx of colonoscopy History of carpal tunnel release Hx of hysterectomy Hx of mastectomy Family History Father Diabetes mellitus Mother Cancer of eye Skin cancer of nose Social History Household Members: None Housing: Apartment Are you a primary adult care manager to a significant other at home: No Do you presently have 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 There is no cervical adenopathy palpated Assessment & Plan Assessment & Plan (1) Primary thyroid cancer: Code(s): C73 - Malignant neoplasm of thyroid gland Category: Medical Plan: 63 YO Female with a PMHx of multifocal papillary thyroid cancer (1 cm x 2 foci) with 07/22 lymph nodes positive for metastatic disease, S/P a total thyroidectomy in 03/09/2014 with adjuvant treatment with 132.6 mCi 06/21/2014. She had a WBS completed 10/02/2021 which revealed intense uptake within the L thyroid bed. Her labs indicated a structural incomplete response with stimulated TG level of 1.7. She did undergo FNA biopsy of 2 lymph nodes identified within the L cervical chain, 1 level II and 1 level III, both with no evidence of malignancy and negative TG washout. She was referred to [facility] and saw Dr. Tejeda 01/2022. She had a repeat US head and neck which revealed no abnormal cervical lymph nodes. She then had a repeat WBS 11/30/2022 which revealed a persistent small focus of radiotracer uptake in the left neck. She did not returned to [facility] for follow-up Plan is to recheck TSH, free T4, free T3 and thyroglobulin. We will then adjust levothyroxine accordingly and keep TSH between 0.1 and low limit of normal for now.. Patient should follow-up with Dr. Wayne a specialist starting here in thyroid cancer who can perform a follow-up neck ultrasound Orders: Orders Thyroglobulin Tumor Marker Today C73 - Malignant neoplasm of thyroid gland Coding Level of Care Code Est Pt Level 3 (05955) Diagnoses Primary thyroid cancer C73
== END 2024-01-02 11:19 | disposition home or self-care (01) ==
PROVIDERS: PCP Internal Medicine; Referring Provider Internal Medicine; Visit Provider Internal Medicine Endocrinology, Diabetes & Metabolism
DX: C73 Malignant neoplasm of thyroid gland (principal)
CPT/HCPCS: 99213

== ENCOUNTER → 2024-01-02 10:56 | Outpatient (BNVA) | payer MEDICAID, SELFPAY | PROVIDERS: PCP Internal Medicine; Visit Provider Internal Medicine Endocrinology, Diabetes & Metabolism | DX: C73 Malignant neoplasm of thyroid gland (principal) | CPT/HCPCS: 99212 ==

== ENCOUNTER 2024-03-11 10:21 | Outpatient (AMB) | payer MEDICAID, SELFPAY ==
--- NOTE | 2024-03-11 10:23 | MHC.OFFVIS ---
Vital Signs 03/11/24 10:24 Height 5 ft 1 in Weight 149 lb 0.52 oz BMI 28.2 BP 110/52 L Blood Pressure Location Lt brachial Position Sitting Pulse 69 Pulse Source Pulse Oximeter Intake Visit Reasons: Thyroid cancer/LVM Intake Note: Patient present today for Thyroid cancer follow up visit. Assistant Passenger Locomotive Engineer Required: Yes Assistant Passenger Locomotive Engineer Language: Vocational Education Teacher Services: Assistant Passenger Locomotive Engineer Offered & Declined Accompanied by: Other Relationship Allergies No Known Allergies Allergy (Verified 03/11/24 10:29) Medication List - Last Reconciled 03/11/24 by Nuris Wayne MD albuterol sulfate 90 mcg/actuation 2 puffs inhalation Q6H PRN aspirin 81 mg PO DAILY atorvastatin 40 mg PO DAILY blood sugar diagnostic (FreeStyle Lite Strips) As directed bupropion HCl XL 300 mg PO DAILY bupropion HCl XL 150 mg PO QAM calcium carbonate (Oyster Shell Calcium 500) 500 mg PO BID cholecalciferol (vitamin D3) 25 mcg PO DAILY diclofenac sodium 1% 2 grams topical TID docusate sodium 100 mg PO BID escitalopram oxalate 10 mg PO QAM fluticasone propionate 110 mcg/actuation (Flovent HFA) 1 puff inhalation BID fluticasone propionate 50 mcg/actuation 1 spray intranasal BID hydroxyzine HCl 50 mg PO BEDTIME lancets (TRUEplus Lancets) As directed lanolin [id number].pet-[id number] (Eucerin topical cream) 1 appl topical DAILY levothyroxine 150 mcg PO DAILY loratadine 10 mg PO DAILY PRN lorazepam 1 mg PO DAILY PRN mirtazapine 7.5 mg PO BEDTIME omeprazole 20 mg PO DAILY polyethylene glycol 3350 17 grams PO DAILY sennosides (senna) 8.6 mg PO DAILY sitagliptin phosphate (Januvia) 100 mg PO DAILY HPI Comments Details: 62-year-old female has 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 Here today with daughter in law . Pt refused interpretation but daughter in law translating She was previously followed by Dr. Lake , then Dr. Kumar , then saw Dr. Wayne last visit 08/05/23. History is also significant for breast cancer that was treated with radiation therapy and her lower neck was included in her radiation field. 1997 HPI PTC in detail 03/09/2014: Total thyroidectomy Surgeon? Place? missing in chart and patient doesnt remember Pathology showed 2 foci of PTC each measuring 1 cm contained within the left lobe of the thyroid, there was microscopic extrathyroidal extension involving the perithyroidal tissue. Margins were negative. Lymphatic invasion of 1/1 perithyroidal lymph node. Right superior and a portion of the left inferior parathyroid glands were resected as well. Staging pT3 pN1 pMX. B Gene V600E mutation was negative. 06/21/2014: YANG 132.6 mCi of I 131. Post treatment scan revealed uptake within the left inferior thyroid bed. Labs from 06/14/2014 showed TSH of 39.4, TG 17, TG antibody less than 20 10/02/2021: WBS Whole-body scan revealed focal intense uptake within the left thyroid bed. Uptake was otherwise physiologic. Labs from 09/25/2021 with TSH 41.63, TG 1.7, TG antibody less than 1 10/16/2021: Ultrasound head and neck revealed mildly enlarged, normal-appearing lymph nodes in the left level 2 and 3 cervical regions. 10/16/2021: FNA biopsy of these lymph nodes with no evidence of malignancy and negative TG washout Subsequently she was referred to [facility] endocrine neoplasia at the time and saw Dr. Tejeda, and underwent ultrasound head and neck which revealed no pathologic appearing lymph nodes. She was asked to follow up in 6 weeks' time but failed to do so. 11/30/2022: WBS: Underwent I 131 with thyroid hormone withdrawal. Labs 11/23/2022 showed TSH of 46.3 with TG of 1.5, TG antibody negative. Whole-body scan revealed a persistent small focus of radiotracer uptake in the left neck, not significantly enlarged. Otherwise there was physiologic distribution of the radiotracer. Most recent labs : 08/05/2023 TSH less than 0.01 Free T4 1.18 Thyroglobulin 0.1 TG antibody negative Laboratory Tests 11/08/22 11/13/22 11/23/22 13:14 11:29 11:30 TSH 8.44 H 24.45 H 46.19 H Thyroglobulin 0.3 H 0.5 H 1.5 H Free T4 < 0.42 L < 0.42 L < 0.42 L Thyroglobulin Fn Nl As Free T3 Thyroglobulin Antibody <1 <1 <1 01/04/23 08/05/23 12:10 11:15 TSH 0.07 L < 0.01 L Thyroglobulin 0.1 H Free T4 1.28 1.18 Thyroglobulin Fn Nl As Free T3 3.9 Thyroglobulin Antibody <1 Levothyroxine dose 150 mcg daily, taking it appropriatley Patient currently denies heat or cold intolerance, diarrhea or constipation, hair loss, palpitation, anxiety, weight changes, mood changes, low energy, changes in appearance of eyes or vision changes, tremors, increased diaphoresis or dry skin. ? Patient denies any difficulty swallowing, pain on swallowing or voice changes or difficulty breathing. Had neck radiation 1996 for breast cancer. Denies having ever used lithium, amiodarone or biotin supplements. Patient denies any family history of thyroid cancer or thyroid disease. Review of systems Constitutional: no fevers, chills or weight loss HEENT: no changes in vision Cardiac: No chest pain, discomfort or palpitations. Pulmonary: No SOB GI:No abdominal pain, no nausea or vomiting, no anorexia, no blood in stool : no burning micturition, dysuria or increase in urinary frequency Neurologic: No dizziness, no weakness in extremities MSK: no back pain or joint stiffness Physical exam General: sitting comfortably in bed in no acute distress HEENT: normocephalic/atraumatic, EOM intact, moist oral mucosa Neck: supple, symmetrical, no thyromegaly , no dorsocervical or supraclavicular fat pads Cardiac: normal heart sounds Pulm: normal breath sounds B/L, no added breath sounds Abd: not distended, no tenderness Extremities: no edema, no signs of myxedema Neuro: AAO x3, Speech: normal, no facial droop, moving all 4 extremities Skin: no rash Foot exam: intact sensation to monofilament, intact pulses, intact vibration PFSH Medical History Diabetes type 2, controlled Diabetic polyneuropathy associated with type 2 diabetes mellitus Dyslipidemia Fibromyalgia H/O malignant neoplasm of skin History of thyroid cancer Hyperparathyroidism Hypotension Lumbar spondylosis Osteoarthritis of knees, bilateral Osteopenia Post-surgical hypothyroidism Postsurgical hypothyroidism Primary thyroid cancer Vitamin D deficiency Vitamin D deficiency Surgical History History of lip cancer History of biopsy History of bunionectomy Hx of cholecystectomy Hx of thyroidectomy Hx of colonoscopy History of carpal tunnel release Hx of hysterectomy Hx of mastectomy Family History Father Diabetes mellitus Mother Cancer of eye Skin cancer of nose Social History Household Members: None Housing: Apartment Are you a primary dog day care attendant to a significant other at home: No 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) Unable to assess alcohol history related to: Unable to respond Alcohol intake: never Comment: ref alarm, ambulating in room Patient Tobacco Use Status: Current everyday Tobacco user Substance Use Type: Opiates service: No Current occupational status: disabled Physical Exam Vital Signs: Last Vital Signs Pulse 69 03/11/24 10:24 BP 110/52 L 03/11/24 10:24 BMI result Body Mass Index 28.2 Results Reviewed Results Reviewed: Laboratory Tests 05/20/18 11/19/18 02/18/19 12:10 11:38 11:47 TSH Thyroglobulin 0.3 H 0.3 H 0.8 H Free T4 Thyroglobulin Fn Nl As Free T3 Thyroglobulin Antibody <1 <1 <1 03/09/19 06/12/19 08/12/19 10:12 12:05 08:26 TSH Thyroglobulin 2.4 H 0.1 H 0.3 H Free T4 Thyroglobulin Fn Nl As Free T3 Thyroglobulin Antibody <1 <1 <1 05/25/20 05/31/20 08/23/21 09:50 09:39 13:48 TSH 1.26 0.90 0.11 L Thyroglobulin 0.2 H 0.4 H 0.2 L Free T4 Thyroglobulin Fn Nl As Free T3 Thyroglobulin Antibody <1 <1 <1 09/18/21 09/25/21 10/30/21 10:55 10:32 12:30 TSH 24.73 H 41.63 H Thyroglobulin 1.3 L 1.7 L Free T4 < 0.40 L Thyroglobulin Fn Nl As <0.1 Free T3 Thyroglobulin Antibody <1 <1 11/17/21 01/23/22 06/04/22 08:30 10:50 13:16 TSH 2.07 0.03 L 0.02 L Thyroglobulin 0.2 L 0.2 L 0.3 L Free T4 1.05 1.50 1.12 Thyroglobulin Fn Nl As Free T3 Thyroglobulin Antibody <1 <1 <1 11/08/22 11/13/22 11/23/22 13:14 11:29 11:30 TSH 8.44 H 24.45 H 46.19 H Thyroglobulin 0.3 H 0.5 H 1.5 H Free T4 < 0.42 L < 0.42 L < 0.42 L Thyroglobulin Fn Nl As Free T3 Thyroglobulin Antibody <1 <1 <1 01/04/23 08/05/23 12:10 11:15 TSH 0.07 L < 0.01 L Thyroglobulin 0.1 H Free T4 1.28 1.18 Thyroglobulin Fn Nl As Free T3 3.9 Thyroglobulin Antibody <1 US SOFT TISSUE NECK 10/16/21 CLINICAL INFORMATION: Lymph node mapping. COMPARISON: Ultrasound 03/14/2020. TECHNIQUE: Ultrasound of the neck soft tissues was performed with high- frequency perez-scale imaging and color Doppler. FINDINGS: THYROID BED: Prior thyroidectomy. No residual thyroid tissue demonstrated in the thyroid bed. No cystic or solid nodules demonstrated in the thyroid bed. RIGHT NECK SOFT TISSUES: Scattered architecturally normal nodes are present. The nodes show normal fatty hilus, normal cortical thickness, and no cystic change or calcification. No abnormal color flow. The largest nodes are as follows: Level Ib: 0.72 x 0.35 x 0.61 cm. Normal ryan architecture. Not seen previously. Level Ib: 0.87 x 0.50 x 0.96 cm cm. Normal ryan architecture. Not seen previously. Level III: 0: 96 x 0.41 x 0.70 cm. Normal architecture. Previously measured 1.1 x 0.23 x 1.1 cm Level III: 0.76 x 0.60 x 0.3 cm. Normal architecture. Not seen previously. LEFT NECK SOFT TISSUES: Scattered architecturally normal nodes are present. The nodes show normal fatty hilus, normal cortical thickness, and no cystic change or calcification. No abnormal color flow. The largest nodes are as follows: Level III: 1.2 x 0.5 x 0.73 cm. Normal ryan architecture. Measured 1.7 x 0.50 x 0.72 cm previously. Level III: 1.1 x 0.36 x 0.71 cm cm. Normal ryan architecture. Not seen previously. Level III: 1.1 x 0.51 x 0.94 cm. Normal ryan architecture. Previously measured 1.8 x 0.50 x 0.92 cm. US/US soft tiss head and/or neck IMPRESSION: 1. Minimal improvement in the size of the lymph nodes, compared to the previous exam 03/14/2020. Some of the small lymph nodes were not seen previously but are less than 1 cm. US SOFT TISSUE NECK 07/27/21 CLINICAL INFORMATION: Lymph node mapping. COMPARISON: Ultrasound 03/14/2020. TECHNIQUE: Ultrasound of the neck soft tissues was performed with high- frequency perez-scale imaging and color Doppler. FINDINGS: THYROID BED: Prior thyroidectomy. No residual thyroid tissue demonstrated in the thyroid bed. No cystic or solid nodules demonstrated in the thyroid bed. RIGHT NECK SOFT TISSUES: Scattered architecturally normal nodes are present. The nodes show normal fatty hilus, normal cortical thickness, and no cystic change or calcification. No abnormal color flow. The largest nodes are as follows: Level Ib: 0.72 x 0.35 x 0.61 cm. Normal ryan architecture. Not seen previously. Level Ib: 0.87 x 0.50 x 0.96 cm cm. Normal ryan architecture. Not seen previously. Level III: 0: 96 x 0.41 x 0.70 cm. Normal architecture. Previously measured 1.1 x 0.23 x 1.1 cm Level III: 0.76 x 0.60 x 0.3 cm. Normal architecture. Not seen previously. LEFT NECK SOFT TISSUES: Scattered architecturally normal nodes are present. The nodes show normal fatty hilus, normal cortical thickness, and no cystic change or calcification. No abnormal color flow. The largest nodes are as follows: Level III: 1.2 x 0.5 x 0.73 cm. Normal ryan architecture. Measured 1.7 x 0.50 x 0.72 cm previously. Level III: 1.1 x 0.36 x 0.71 cm cm. Normal ryan architecture. Not seen previously. Level III: 1.1 x 0.51 x 0.94 cm. Normal ryan architecture. Previously measured 1.8 x 0.50 x 0.92 cm. US/US soft tiss head and/or neck IMPRESSION: 1. Minimal improvement in the size of the lymph nodes, compared to the previous exam 03/14/2020. Some of the small lymph nodes were not seen previously but are less than 1 cm. Assessment & Plan Assessment & Plan (1) Postsurgical hypothyroidism: Code(s): E89.0 - Postprocedural hypothyroidism Category: Medical Plan: Patient with postsurgical hypothyroidism after total thyroidectomy due to thyroid cancer. She is currently KEKE indeterminate response to therapy due to mildly elevated but stable thyroglobulin levels. Her goal TSH at this time is 0.1-0.5. Last labs from July showed TSH less than 0.1 Mild she is not symptomatic, likely we can go down a little bit more on the dose of levothyroxine. However she has not had recent TFTs. We will 1st repeat labs. Plan: -obtain TSH and free T4 levels (2) History of thyroid cancer: Code(s): Z85.850 - Personal history of malignant neoplasm of thyroid Category: Medical Plan: Patient with history of left lobe multifocal PTC with 2 foci each 1 cm, status post total thyroidectomy in February of 2014, AJCC stage I disease (pT3 pN1 MX), KEKE intermediate risk of recurrence due to microscopic extrathyroidal extension involving the perithyroidal tissue. Margins were negative. Lymphatic invasion of 1/1 perithyroidal lymph node. KEKE indeterminate response. Over the last many years she has been followed with serial ultrasounds, whole-body scan in TG levels. Her Non stimulated Tg levels have mostly been in the range within the range of 0.1-0.5 and stimulated within the range of 1.5-1.7, more or less stable. Last set of labs from August 14 showed TG level of 0.3, however TSH was suppressed at less than 0.01. I would classify her as KEKE in today indeterminate response to therapy. While she has had some focal uptake on her left side of whole-body scan, with last 1 being in December 11, her ultrasounds have not shown any suspicious lymph nodes, and previously when they did in , biopsy was negative for malignancy. In indeterminate response, 15% to 20% we will have structural disease identified during follow-up, however in the remainder of the nonspecific changes are either stable or resolved, less than 1% have disease specific At this point I would like to repeat an ultrasound of the neck. We will also obtain TG tumor markers. Plan: -ordered ultrasound of the neck -ordered thyroglobulin and thyroglobulin antibody levels along with TSH and free T4 -follow up in 3 months Plan I spent 40 minutes in reviewing the record, seeing the patient and documenting in the medical record. Orders: Orders Thyroglobulin Antibodies Today E89.0 - Postprocedural hypothyroidism, Z85.850 - Personal history of malignant neoplasm of thyroid Thyroglobulin Today E89.0 - Postprocedural hypothyroidism, Z85.850 - Personal history of malignant neoplasm of thyroid Thyroid Stimulating Hormone Today E89.0 - Postprocedural hypothyroidism, Z85.850 - Personal history of malignant neoplasm of thyroid Free T4 (Free Thyroxine) Today E89.0 - Postprocedural hypothyroidism, Z85.850 - Personal history of malignant neoplasm of thyroid US soft tiss head and/or neck Today E89.0 - Postprocedural hypothyroidism, Z85.850 - Personal history of malignant neoplasm of thyroid Thyroglobulin Tumor Marker Today E89.0 - Postprocedural hypothyroidism, Z85.850 - Personal history of malignant neoplasm of thyroid Patient Instructions: Do blood work today Get ultrasound thyroid done continue levothyroxine 150 mcg daily Follow up in 3months Hazte an?lisis de trena hoy Hacerse bhavna ecograf?a de tiroides continuar con levotiroxina 150 mcg al d?a Seguimiento en 3 meses. Coding Level of Care Code Est Pt Level 5 (61429) Diagnoses Postsurgical hypothyroidism E89.0 History of thyroid cancer Z85.850 Time Spent (min) 40
[2024-03-11 10:24] VITALS: BP 110/52; PULSE 69; BMI 28.2
== END 2024-03-11 11:11 | disposition home or self-care (01) ==
PROVIDERS: PCP Internal Medicine; Referring Provider Internal Medicine; Visit Provider Student in an Organized Health Care Education/Training Program
DX: E89.0 Postprocedural hypothyroidism (principal); Z85.850 Personal history of malignant neoplasm of thyroid
CPT/HCPCS: 99215

== ENCOUNTER → 2024-03-11 10:21 | Outpatient (BNVA) | payer MEDICAID, SELFPAY | PROVIDERS: PCP Internal Medicine; Visit Provider Student in an Organized Health Care Education/Training Program ==

== ENCOUNTER 2024-03-11 11:14 | Outpatient (REF) | payer MEDICAID, SELFPAY ==
[2024-03-11 14:06] LABS: Free T4 (Free Thyroxine) 1.79 ng/dL (0.71-1.85); Thyroid Stimulating Hormone < 0.01 uIU/mL (0.32-4.0)
[2024-03-12 11:03] LABS: Thyroglobulin 0.1 ng/mL; Thyroglobulin Antibodies <1 IU/mL (< or = 1)
[2024-03-13 21:48] LABS: Thyroglobulin Antibody <1 IU/mL (<=1); Thyroglobulin Level <0.1 ng/mL
== END 2024-03-11 11:15 | disposition home or self-care (01) ==
LOC: HO.10HDL 11:14
PROVIDERS: Visit Provider Student in an Organized Health Care Education/Training Program
DX: E89.0 Postprocedural hypothyroidism (principal); Z85.850 Personal history of malignant neoplasm of thyroid
CPT/HCPCS: 36415; 84432; 84439; 84443; 86800; 99212

== ENCOUNTER 2024-04-09 22:38 | Emergency (ER) | payer MEDICAID, SELFPAY ==
--- NOTE | ~2024-04-09 | XR_ITS ---
EXAMINATION: XR CHEST CLINICAL INFORMATION: Cough. COMPARISON: January 14, 2023. TECHNIQUE: Frontal view of the chest was obtained. FINDINGS: The patient is mildly rotated. The cardiomediastinal silhouette is stable. There is no focal lung consolidation or pleural effusions. The bony structures and soft tissues are unremarkable. XR/XR chest 1V IMPRESSION: No acute cardiopulmonary process. Electronically signed by: Zachary Oden MD 04/10/2024 03:38 AM EDT
[2024-04-09 23:03] VITALS: BP 106/54; PULSE 69; RESP 20; TEMP 36.3; O2SAT 90
[2024-04-09 23:19] VITALS: BP 112/63; BP 112/64; PULSE 67; PULSE 94; RESP 15; TEMP 37.2; O2SAT 92; O2SAT 93; BMI 29.7
--- NOTE | 2024-04-09 23:33 | ECG_ITS ---
Test Reason : CHEST PAIN/SOB/ABD PAIN Blood Pressure : / mmHG Vent. Rate : 065 BPM Atrial Rate : 065 BPM P-R Int : 164 ms QRS Dur : 078 ms QT Int : 454 ms P-R-T Axes : 040 011 039 degrees QTc Int : 472 ms Normal sinus rhythm Normal ECG When compared with ECG of 13-JAN-2023 23:12, No significant change was found Referred By: Generic ED Physician Electronically Signed By:LORA PRESCOTT
[2024-04-10 00:20] LABS: MANUAL DIFF FLAG NO
[2024-04-10 00:23] LABS: Basophils Absolute Auto 0.1 X10*3/uL (0.0-0.2); Basophils Percent Auto 0.8 % (0-2); Eosinophils Absolute Auto 0.5 X10*3/uL (0.0-0.4); Eosinophils Percent Auto 6.6 % (0-4); Hematocrit 33.1 % (37.0-47.0); Hemoglobin 11.3 g/dl (12.0-16.0); Imm Gran Abs Auto 0.03 X10*3/uL (0.00-0.03); Imm Gran Pct Auto 0.4 % (0.0-0.4); Lymphocytes Absolute Auto 1.2 X10*3/uL (1.2-4.9); Lymphocytes Percent Auto 15.8 % (20-40); Mean Corpuscular HGB Conc 34.1 g/dl (31.0-35.0); Mean Corpuscular Hemoglobin 28.3 pg (27.0-33.0); Mean Corpuscular Volume 82.8 fL (80.0-98.0); Mean Platelet Volume 10.9 fL (9.4-12.3); Monocytes Absolute Auto 0.2 X10*3/uL (0.1-1.2); Monocytes Percent Auto 3.1 % (2-11); Neutrophils Absolute Auto 5.6 x10*3/uL (2.0-8.3); Neutrophils Percent Auto 73.3 % (45-73); Platelet Count 142 X10*3/uL (160-400); Red Cell Distribution Width 12.4 % (11.0-16.0); White Blood Count 7.7 X10*3/uL (4.8-10.8)
[2024-04-10 00:34] LABS: Alanine Aminotransferase 14 U/L (0-31); Albumin Level 3.9 g/dL (3.5-5.0); Alkaline Phosphatase 75 U/L (39-117); Anion Gap 11 (12-20); Aspartate Amino Transferase 19 U/L (5-31); Bilirubin Total 0.2 mg/dL (0.0-1.0); Blood Urea Nitrogen 12 mg/dL (9-16); Calcium 9.4 mg/dL (8.4-10.2); Carbon Dioxide 29 mmol/L (22-29); Chloride 106 mmol/L (96-108); Creatinine Clr Calc Pharmacy 67.6; Estimated Glomerular Filt Rate > 60; Glucose Random 115 mg/dL (60-115); Potassium 3.9 mmol/L (3.3-5.1); Sodium 142 mmol/L (135-145); Total Protein 6.9 g/dL (6.5-8.0)
[2024-04-10 00:35] LABS: Alanine Aminotransferase 14 U/L (0-31); Albumin Level 3.9 g/dL (3.5-5.0); Alkaline Phosphatase 75 U/L (39-117); Aspartate Amino Transferase 19 U/L (5-31); Bilirubin Direct < 0.2 mg/dL (0.0-0.5); Bilirubin Total 0.2 mg/dL (0.0-1.0); Lipase 24 U/L (8-78); Total Protein 6.8 g/dL (6.5-8.0)
[2024-04-10 00:52] LABS: Troponin-I High Sensitivity < 2.7 ng/L (<3.5-17.0)
[2024-04-10 01:49] VITALS: PULSE 64; RESP 12; TEMP 36.9; O2SAT 92
--- NOTE | 2024-04-10 01:53 | ED.GENADULT ---
HPI - General Adult General Chief complaint: General Medical Stated complaint: chest pain,sob, stomach pain Time Seen by Provider: 04/10/24 01:43 Source: patient Mode of arrival: ambulatory Limitations: no limitations History of Present Illness ED Provider: jose daniel GAINES narrative: Patient is smoker with COPD complaining of cough and chest pain for last few days history of same in the past been here multiple times for similar reasons also does have fibromyalgia pain is localized to mid chest reproducible and increases on deep breaths Related Data Home Medications ?Medication ?Instructions ?Recorded ?Confirmed albuterol sulfate 90 mcg/actuation 2 puff inhalation Q6H PRN Wheezing 05/27/20 03/11/24 aerosol inhaler aspirin 81 mg tablet,delayed 81 mg PO DAILY 05/27/20 03/11/24 release atorvastatin 40 mg tablet 40 mg PO DAILY 05/27/20 03/11/24 fluticasone propionate 110 1 puff inhalation BID 05/27/20 03/11/24 mcg/actuation HFA aerosol inhaler (Flovent HFA) lanolin alcohols-mineral 1 applic topical DAILY 05/27/20 03/11/24 oil-w.petrolatum-ceresin topical cream (Eucerin topical cream) sennosides 8.6 mg tablet (senna) 8.6 mg PO DAILY 05/27/20 03/11/24 blood sugar diagnostic (FreeStyle #10 ea 08/23/22 03/11/24 Lite Strips) bupropion HCl 150 mg 24 hr tablet, 150 mg PO QAM 08/23/22 03/11/24 extended release bupropion HCl 300 mg 24 hr tablet, 300 mg PO DAILY 08/23/22 03/11/24 extended release calcium carbonate (Oyster Shell 500 mg PO BID 08/23/22 03/11/24 Calcium 500) cholecalciferol (vitamin D3) 25 25 mcg PO DAILY 08/23/22 03/11/24 mcg (1,000 unit) tablet diclofenac sodium 1 % topical gel 2 g topical TID 08/23/22 03/11/24 docusate sodium 100 mg capsule 100 mg PO BID 08/23/22 03/11/24 escitalopram oxalate 10 mg tablet 10 mg PO QAM 08/23/22 03/11/24 fluticasone propionate 50 1 spray intranasal BID 08/23/22 03/11/24 mcg/actuation nasal spray,suspension hydroxyzine HCl 50 mg tablet 50 mg PO BEDTIME 08/23/22 03/11/24 lancets 33 gauge (TRUEplus Lancets) #100 ea 08/23/22 03/11/24 loratadine 10 mg tablet 10 mg PO DAILY PRN allergies 08/23/22 03/11/24 lorazepam 1 mg tablet 1 mg PO DAILY PRN anxiety 08/23/22 03/11/24 mirtazapine 7.5 mg tablet 7.5 mg PO BEDTIME 08/23/22 03/11/24 omeprazole 20 mg capsule,delayed 20 mg PO DAILY 08/23/22 03/11/24 release polyethylene glycol 3350 17 17 g PO DAILY 08/23/22 03/11/24 gram/dose oral powder Previous Rx's ?Medication ?Instructions ?Recorded sitagliptin phosphate 100 mg 100 mg PO DAILY #30 tabs 04/09/22 tablet (Januvia) levothyroxine 137 mcg capsule 137 mcg PO DAILY #30 caps 03/12/24 Allergies Allergy/AdvReac Type Severity Reaction Status Date / Time ibuprofen Allergy Itching Verified 04/09/24 23:22 Review of Systems Review of Systems: Yes all other systems are reviewed and are negative PMFSH Past Medical History Medical History Hypotension Osteoarthritis of knees, bilateral Fibromyalgia Hyperparathyroidism Vitamin D deficiency History of thyroid cancer Postsurgical hypothyroidism H/O malignant neoplasm of skin Lumbar spondylosis Vitamin D deficiency Osteopenia Dyslipidemia Diabetic polyneuropathy associated with type 2 diabetes mellitus Post-surgical hypothyroidism Primary thyroid cancer Diabetes type 2, controlled Surgical History History of lip cancer History of biopsy History of bunionectomy Hx of cholecystectomy Hx of thyroidectomy Hx of colonoscopy History of carpal tunnel release Hx of hysterectomy Hx of mastectomy Family History Family History Father Diabetes mellitus Mother Cancer of eye Skin cancer of nose Social History Social History Household Members: None Housing: Apartment Are you a primary care transitions nurse to a significant other at home: No Do you presently have visiting nurse or other home services: Yes (nurse behavioral health care) Unable to assess alcohol history related to: Unable to respond Alcohol intake: never Comment: ref alarm, ambulating in room Patient Tobacco Use Status: Current everyday Tobacco user Smoked in Last 30 Days: Yes Use of substances other than those prescribed or required for medical reasons: No Substance Use Type: Opiates Advance Directives: No Advance Directives Information Provided: Yes Patient : No service: No Current occupational status: disabled Physical Exam ED Vital Signs: Vital Signs - 24 hr 04/09/24 23:03 04/09/24 23:19 04/10/24 01:49 Temperature 97.3 F 99.0 F 98.4 F Pulse Rate 69 67 64 Respiratory Rate 20 15 12 Blood Pressure 106/54 L 112/63 Pulse Oximetry 90 L 92 92 Oxygen Delivery Method Room Air Room Air Room Air 04/10/24 03:05 Temperature Pulse Rate 58 Respiratory Rate 18 Blood Pressure Pulse Oximetry Oxygen Delivery Method BMI result Body Mass Index 29.7 Appearance: Alert. Oriented X3. No acute distress. Eyes: PERRLA, No Nystagmus ENT: Pharynx normal. Oral Mucosa moist Neck: Normal inspection. Neck supple. CVS: Normal heart rate and rhythm. Pulses normal. Respiratory: No respiratory distress. Equal air entry bilateral, no wheezing/rales/rhonchi bilateral conducted sounds Abdomen: Soft and nontender. Bowel sounds are present, no mass palpable, no CVA tenderness Skin: Skin warm and dry. Normal skin color. Normal skin turgor. Extremities: No lower extremity edema. No calf tenderness Neuro: Oriented X 3. No motor deficit. No sensory deficit.No cerebellar signs , cranial nerves II-XII intact Medications Administered Discontinued Medications Generic Name Dose Route Start Last Admin Trade Name Freq PRN Reason Stop Dose Admin Acetaminophen 650 mg 04/10/24 02:47 04/10/24 03:27 Acetaminophen 325 Mg Tablet PO 04/10/24 02:48 650 mg ONCE ONE Administration Albuterol Sulfate 2.5 mg/ 0 mg 04/10/24 02:47 04/10/24 03:02 Albuterol/Ipratropium 3 ml INHALE 04/10/24 02:48 5 dose ONCE ONE Administration Medical Decision Making Medical Decision Making MDM Narrative: Musculoskeletal pain/costochondritis/bronchitis atypical chest pain patient with multiple complaints came here workup is negative discharge patient home on Tylenol Differential Diagnosis Differential Diagnoses: The differential diagnosis associated with the presentation includes Lab Data MDM Lab Attestation statement: I reviewed the patient's lab results. 04/10/24 00:07 04/10/24 00:07 Labs: Lab Results 04/10/24 04/10/24 04/10/24 Range/Units 00:07 00:08 01:48 WBC 7.7 (4.8-10.8) X10*3/uL RBC 4.00 L (4.20-5.50) X10*6/uL Hgb 11.3 L (12.0-16.0) g/dl Hct 33.1 L (37.0-47.0) % MCV 82.8 (80.0-98.0) fL MCH 28.3 (27.0-33.0) pg MCHC 34.1 (31.0-35.0) g/dl RDW 12.4 (11.0-16.0) % Plt Count 142 L (160-400) X10*3/uL MPV 10.9 (9.4-12.3) fL Immature Gran % (Auto) 0.4 (0.0-0.4) % Neut % (Auto) 73.3 H (45-73) % Lymph % (Auto) 15.8 L (20-40) % [place] % (Auto) 3.1 (2-11) % Eos % (Auto) 6.6 H (0-4) % Baso % (Auto) 0.8 (0-2) % Lymph # (Auto) 1.2 (1.2-4.9) X10*3/uL [place] # (Auto) 0.2 (0.1-1.2) X10*3/uL Eos # (Auto) 0.5 H (0.0-0.4) X10*3/uL Baso # (Auto) 0.1 (0.0-0.2) X10*3/uL Abs Immat Gran (auto) 0.03 (0.00-0.03) X10*3/uL Absolute Neuts (auto) 5.6 (2.0-8.3) x10*3/uL Absolute Nucleated RBC 0.000 (0.0-0.012) X10*3/uL Nucleated RBC % (auto) 0.0 (0.0-0.2) /100WBC Sodium 142 (135-145) mmol/L Potassium 3.9 (3.3-5.1) mmol/L Chloride 106 (96-108) mmol/L Carbon Dioxide 29 (22-29) mmol/L Anion Gap 11 L (12-20) BUN 12 (9-16) mg/dL Creatinine 0.79 (0.5-1.4) mg/dL Estim Creat Clear Calc 67.6 Estimated GFR > 60 POC Glucose 156 H (60-115) mg/dL Random Glucose 115 (60-115) mg/dL Calcium 9.4 (8.4-10.2) mg/dL Total Bilirubin 0.2 0.2 (0.0-1.0) mg/dL Direct Bilirubin < 0.2 (0.0-0.5) mg/dL AST 19 19 (5-31) U/L ALT 14 14 (0-31) U/L Alkaline Phosphatase 75 75 (39-117) U/L Troponin I High Sens < 2.7 (<3.5-17.0) ng/L Total Protein 6.9 6.8 (6.5-8.0) g/dL Albumin 3.9 3.9 (3.5-5.0) g/dL Lipase 24 (8-78) U/L Independent Interpretation I performed an independent interpretation of an: EKG and Plain X-Ray Interpretation: Normal sinus rhythm heart rate 55 beats per minute normal interval normal axis no acute STT wave changes no acute ischemia Radiology Impression Discussion of test interpretation with radiology: I have reviewed the radiologist's reading. Radiologist Impression: Negative chest x-ray Discharge Plan Discharge Clinical Impression: Chest pain, musculoskeletal Patient Disposition: Home, Self-Care Instructions: Chest Wall Pain (ED) Additional Instructions: Your chest pain is unlikely from the heart is muscular pain take Tylenol for pain Stop smoking take your nebulizer treatment Prescriptions: No Action Januvia 100 mg tablet 100 mg PO DAILY Qty: 30 6RF levothyroxine 137 mcg capsule 137 mcg PO DAILY Qty: 30 3RF Eucerin Cream 1 applic topical DAILY aspirin 81 mg tablet,delayed release (DR/EC) 81 mg PO DAILY atorvastatin 40 mg tablet 40 mg PO DAILY sennosides [senna] 8.6 mg tablet 8.6 mg PO DAILY albuterol sulfate 90 mcg/actuation HFA aerosol inhaler 2 puff inhalation Q6H PRN (Reason: Wheezing) Flovent HFA 110 mcg/actuation HFA aerosol inhaler 1 puff inhalation BID cholecalciferol (vitamin D3) 25 mcg (1,000 unit) tablet 25 mcg PO DAILY calcium carbonate [Oyster Shell Calcium 500] 500 mg calcium (1,250 mg) tablet 500 mg PO BID loratadine 10 mg tablet 10 mg PO DAILY PRN (Reason: allergies) docusate sodium 100 mg capsule 100 mg PO BID diclofenac sodium 1 % gel 2 g topical TID lorazepam 1 mg tablet 1 mg PO DAILY PRN (Reason: anxiety) mirtazapine 7.5 mg tablet 7.5 mg PO BEDTIME bupropion HCl 300 mg tablet extended release 24 hr 300 mg PO DAILY hydroxyzine HCl 50 mg tablet 50 mg PO BEDTIME omeprazole 20 mg capsule,delayed release(DR/EC) 20 mg PO DAILY polyethylene glycol 3350 17 gram/dose powder 17 g PO DAILY fluticasone propionate 50 mcg/actuation spray,suspension 1 spray intranasal BID bupropion HCl 150 mg tablet extended release 24 hr 150 mg PO QAM escitalopram oxalate 10 mg tablet 10 mg PO QAM (DME) lancets [TRUEplus Lancets] 33 gauge misc See Rx Instructions .ROUTE QID Qty: 100 Rx Instructions: As directed (DME) FreeStyle Lite Strips Strip See Rx Instructions .ROUTE QID Qty: 10 Rx Instructions: As directed Print Language: Emirati
[2024-04-10 01:56] LABS: Glucose, Whole Blood 156 mg/dL (60-115)
--- NOTE | 2024-04-10 02:22 | PC.NURSE ---
pt note continued pain in lower extremities. requesting pain medication. notified Dr. Robertson. Awaiiting new orders
[2024-04-10] MEDS: Albuterol Sulfate 2.5 MG, Albuterol/Iprat 2.5/0.5MG 3 ML 3 ML INHALE (03:02)
[2024-04-10 03:05] VITALS: PULSE 58; RESP 18; O2SAT 96
[2024-04-10] MEDS: Acetaminophen 325 MG TABLET 650 MG PO (03:27)
[2024-04-10 06:01] VITALS: BP 122/53; PULSE 99; RESP 18; TEMP 36.9; O2SAT 92
== END 2024-04-10 06:04 | disposition home or self-care (01) ==
PROVIDERS: Emergency Provider Internal Medicine
DX: R07.89 Other chest pain (principal); R06.02 Shortness of breath; E78.5 Hyperlipidemia, unspecified; E21.3 Hyperparathyroidism, unspecified; Z79.82 Long term (current) use of aspirin; Z79.02 Long term (current) use of antithrombotics/antiplatelets; Z79.899 Other long term (current) drug therapy
CPT/HCPCS: 36415; 71045; 80053; 80076; 82248; 82947; 83690; 84484; 85025; 93005; 94640; 99284; 99285

== ENCOUNTER 2024-04-10 15:51 | Outpatient (REF) | payer MEDICAID, SELFPAY ==
--- NOTE | ~2024-04-10 | US_ITS ---
EXAMINATION: US SOFT TISSUE NECK CLINICAL INFORMATION: Personal history of malignant neoplasm thyroid. COMPARISON: Ultrasound-guided lymph node biopsy 10/30/2021. Ultrasound soft tissue neck 10/16/2021 and 07/27/2021. TECHNIQUE: Ultrasound of the neck soft tissues is performed with high- frequency perez-scale imaging and color Doppler. FINDINGS: THYROID BED: Prior thyroidectomy. No residual thyroid tissue demonstrated in the thyroid bed. No cystic or solid nodules demonstrated in the thyroid bed. RIGHT NECK SOFT TISSUES: Scattered architecturally normal nodes are present. The nodes show normal fatty hilus, normal cortical thickness, and no cystic change or calcification. No abnormal color flow. The largest nodes are as follows: Level 1B: 1.2 x 0.4 x 0.7 cm. Normal ryan architecture. Level 3: 1.2 x 0.3 x 1.0 cm. Normal ryan architecture. LEFT NECK SOFT TISSUES: Scattered architecturally normal nodes are present. The nodes show normal fatty hilus, normal cortical thickness, and no cystic change or calcification. No abnormal color flow. The largest nodes are as follows: Level 1A: 1.0 x 0.5 x 0.6 cm. Normal ryan architecture. Level 2: 0.5 x 0.2 x 0.5 cm. Normal ryan architecture. Level 3: 1.5 x 0.5 x 0.6 cm. Normal ryan architecture. US/US soft tiss head and/or neck IMPRESSION: 1. The thyroid gland is surgically absent. No abnormal mass or fluid collection is demonstrated within the thyroid bed. 2. There are scattered bilateral cervical lymph nodes, one at right level 3 borderline enlarged, with normal architectural features. Recommend management on a clinical basis. If clinically indicated further evaluation of the neck soft tissues and nodes may be performed with CT soft tissue neck with intravenous contrast. Electronically signed by: Curtis Soni MD 04/16/2024 07:03 PM EDT
== END 2024-04-10 15:52 | disposition home or self-care (01) ==
LOC: HO.US 15:51
PROVIDERS: PCP Internal Medicine; Visit Provider Student in an Organized Health Care Education/Training Program
DX: Z85.850 Personal history of malignant neoplasm of thyroid (principal)
CPT/HCPCS: 76536

== ENCOUNTER 2024-05-13 14:20 | Outpatient (REF) | payer MEDICAID, SELFPAY ==
[2024-05-13 17:33] LABS: MANUAL DIFF FLAG NO
[2024-05-13 17:42] LABS: Basophils Absolute Auto 0.1 X10*3/uL (0.0-0.2); Basophils Percent Auto 1.1 % (0-2); Eosinophils Absolute Auto 0.8 X10*3/uL (0.0-0.4); Eosinophils Percent Auto 10.2 % (0-4); Hematocrit 37.2 % (37.0-47.0); Hemoglobin 12.1 g/dl (12.0-16.0); Imm Gran Abs Auto 0.03 X10*3/uL (0.00-0.03); Imm Gran Pct Auto 0.4 % (0.0-0.4); Lymphocytes Absolute Auto 2.4 X10*3/uL (1.2-4.9); Lymphocytes Percent Auto 30.8 % (20-40); Mean Corpuscular HGB Conc 32.5 g/dl (31.0-35.0); Mean Corpuscular Hemoglobin 27.4 pg (27.0-33.0); Mean Corpuscular Volume 84.2 fL (80.0-98.0); Mean Platelet Volume 12.4 fL (9.4-12.3); Monocytes Absolute Auto 0.4 X10*3/uL (0.1-1.2); Monocytes Percent Auto 5.5 % (2-11); Neutrophils Absolute Auto 4.1 x10*3/uL (2.0-8.3); Platelet Count 163 X10*3/uL (160-400); Red Blood Count 4.42 X10*6/uL (4.20-5.50); White Blood Count 7.8 X10*3/uL (4.8-10.8)
[2024-05-13 17:56] LABS: Alanine Aminotransferase 25 U/L (0-31); Alkaline Phosphatase 79 U/L (39-117); Anion Gap 11 (12-20); Aspartate Amino Transferase 43 U/L (5-31); Bilirubin Total 0.2 mg/dL (0.0-1.0); Blood Urea Nitrogen 17 mg/dL (9-16); Calcium 9.4 mg/dL (8.4-10.2); Carbon Dioxide 30 mmol/L (22-29); Chloride 108 mmol/L (96-108); Cholesterol 131 mg/dL (<200); Estimated Glomerular Filt Rate > 60; Glucose Random 93 mg/dL (60-115); HDL Cholesterol 39 mg/dL (>40); LDL Cholesterol Calculated 65 mg/dL (<100); Potassium 4.6 mmol/L (3.3-5.1); Sodium 144 mmol/L (135-145); Triglycerides 138 mg/dL (<150)
[2024-05-13 18:11] LABS: Free T4 (Free Thyroxine) 0.98 ng/dL (0.71-1.85)
[2024-05-14 07:26] LABS: Estimated Average Glucose 100 mg/dL; Hemoglobin A1C 102.8035 umol/L; Hemoglobin A1c % 5.1 % (<6.0); Total Hemoglobin (HGBA1C) 3139.9332 umol/L
[2024-05-14 08:24] LABS: ~HepC Num1 0.18 S/CO (0.00-0.79); ~Hepatitis C Antibody Nonreactive (Nonreactive)
[2024-05-16 12:23] LABS: HIV RNA PCR Qn Copies Not Detected Copies/mL; HIV RNA PCR Qn Log Copies Not Detected Log cps/mL
== END 2024-05-13 14:21 | disposition home or self-care (01) ==
LOC: HO.CHCLDS 14:20
PROVIDERS: PCP Internal Medicine; Referring Provider Student in an Organized Health Care Education/Training Program; Visit Provider Internal Medicine
DX: E11.69 Type 2 diabetes mellitus with other specified complication (principal); E78.5 Hyperlipidemia, unspecified; Z85.850 Personal history of malignant neoplasm of thyroid
CPT/HCPCS: 36415; 80053; 80061; 83036; 84439; 84443; 85025; 86803; 87536; 87900

== ENCOUNTER 2024-06-05 09:14 | Outpatient (REF) | payer MEDICAID, SELFPAY ==
--- NOTE | ~2024-06-05 | XR_ITS ---
EXAMINATION: XR HIP, RIGHT CLINICAL INFORMATION: Right hip pain for 3 weeks COMPARISON: X-ray dated July 21, 2018. TECHNIQUE: Two views of the right hip. FINDINGS: No acute cortical disruption or malalignment. No lytic or blastic lesions. XR/XR hip RT min 2V IMPRESSION: No acute fracture or dislocation. Stable. Electronically signed by: Wayne Gilliam MD 06/05/2024 10:15 AM [facility]
== END 2024-06-05 09:15 | disposition home or self-care (01) ==
LOC: HO.HHCX 09:14
PROVIDERS: Visit Provider Internal Medicine
DX: M25.551 Pain in right hip (principal)
CPT/HCPCS: 73502

== ENCOUNTER → 2024-06-05 09:14 | Outpatient (BNV) | payer MEDICAID, SELFPAY | PROVIDERS: Visit Provider Radiology Diagnostic Radiology | DX: M25.551 Pain in right hip (principal) | CPT/HCPCS: 73502 ==

== ENCOUNTER 2024-06-11 12:43 | Outpatient (AMB) | payer MEDICAID, SELFPAY ==
[2024-06-11 13:00] VITALS: BP 112/50; PULSE 67; BMI 28.3
--- NOTE | 2024-06-11 13:00 | A.OFFVIS_ITS ---
Vital Signs 3 06/11/24 13:00 Height 5 ft 2 in Weight 154 lb 8.705 oz BMI 28.3 BP 112/50 L Blood Pressure Location Lt brachial Position Sitting Pulse 67 Pulse Source Pulse Oximeter Intake Visit Reasons: Thyroid cancer-confirmed Intake Note: Patient present today for Thyroid cancer follow up visit. Sheriff Detective Required: Yes Sheriff Detective Language: Remote Ruby On Rails Developer Services: Sheriff Detective Present Sheriff Detective Name: Gloria [id number] Information Interpreted: non-clinical & clinical Accompanied by: Self / Same As Patient Allergies ibuprofen Allergy (Verified 06/11/24 13:03) Itching Medication List - Last Reconciled 06/11/24 by Nuris Wayne MD albuterol sulfate 90 mcg/actuation 2 puffs inhalation Q6H PRN aspirin 81 mg PO DAILY atorvastatin 40 mg PO DAILY blood sugar diagnostic (FreeStyle Lite Strips) As directed bupropion HCl XL 300 mg PO DAILY bupropion HCl XL 150 mg PO QAM calcium carbonate (Oyster Shell Calcium 500) 500 mg PO BID cholecalciferol (vitamin D3) 25 mcg PO DAILY diclofenac sodium 1% 2 grams topical TID docusate sodium 100 mg PO BID escitalopram oxalate 10 mg PO QAM fluticasone propionate 110 mcg/actuation (Flovent HFA) 1 puff inhalation BID fluticasone propionate 50 mcg/actuation 1 spray intranasal BID hydroxyzine HCl 50 mg PO BEDTIME lancets (TRUEplus Lancets) As directed lanolin lflxvtf-su-l.pet-ceres (Eucerin topical cream) 1 appl topical DAILY levothyroxine 137 mcg PO DAILY loratadine 10 mg PO DAILY PRN lorazepam 1 mg PO DAILY PRN mirtazapine 7.5 mg PO BEDTIME omeprazole 20 mg PO DAILY polyethylene glycol 3350 17 grams PO DAILY sennosides (senna) 8.6 mg PO DAILY sitagliptin phosphate (Januvia) 100 mg PO DAILY HPI Comments Details: 62-year-old female has 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 Here today with daughter in law . Pt refused interpretation but daughter in law translating History is also significant for breast cancer that was treated with radiation therapy and her lower neck was included in her radiation field. 1997 HPI PTC in detail 03/09/2014: Total thyroidectomy Surgeon? Place? missing in chart and patient doesnt remember Pathology showed 2 foci of PTC each measuring 1 cm contained within the left lobe of the thyroid, there was microscopic extrathyroidal extension involving the perithyroidal tissue. Margins were negative. Lymphatic invasion of 1/1 perithyroidal lymph node. Right superior and a portion of the left inferior parathyroid glands were resected as well. Staging pT3 pN1 pMX. B Gene V600E mutation was negative. 06/21/2014: YANG 132.6 mCi of I 131. Post treatment scan revealed uptake within the left inferior thyroid bed. Labs from 06/14/2014 showed TSH of 39.4, TG 17, TG antibody less than 20 10/02/2021: WBS Whole-body scan revealed focal intense uptake within the left thyroid bed. Uptake was otherwise physiologic. Labs from 09/25/2021 with TSH 41.63, TG 1.7, TG antibody less than 1 10/16/2021: Ultrasound head and neck revealed mildly enlarged, normal-appearing lymph nodes in the left level 2 and 3 cervical regions. 10/16/2021: FNA biopsy of these lymph nodes with no evidence of malignancy and negative TG washout Subsequently she was referred to [facility] endocrine neoplasia at the time and saw Dr. Tejeda, and underwent ultrasound head and neck which revealed no pathologic appearing lymph nodes. She was asked to follow up in 6 weeks' time but failed to do so. 11/30/2022: WBS: Underwent I 131 with thyroid hormone withdrawal. Labs 11/23/2022 showed TSH of 46.3 with TG of 1.5, TG antibody negative. Whole-body scan revealed a persistent small focus of radiotracer uptake in the left neck, not significantly enlarged. Otherwise there was physiologic distribution of the radiotracer. 08/05/2023 TSH less than 0.01 Free T4 1.18 Thyroglobulin 0.1 TG antibody negative Interval history Labs 03/11/2024 showed TSH less than 0.01, free T4 1.79, TG less than 011, TG antibody less than 1 03/12/2024Levothyroxine dose reduced from 150 mcg to 137 mcg daily 04/10/2024 ultrasound neck showed bilateral normal looking lymph nodes, I reviewed the images myself. 05/13/2024 repeat labs showed TSH of 0.20, free T4 of 0.98. Complaining of intermittent palpitations , reports increased diaphoresis but not bothersome. Patient currently denies heat or cold intolerance, diarrhea or constipation, hair loss,, anxiety, weight changes, mood changes, low energy, changes in appearance of eyes or vision changes, Patient denies any difficulty swallowing, pain on swallowing or voice changes or difficulty breathing. Had neck radiation 1996 for breast cancer. Denies having ever used lithium, amiodarone or biotin supplements. Patient denies any family history of thyroid cancer or thyroid disease. Review of systems Constitutional: no fevers, chills or weight loss HEENT: no changes in vision Cardiac: No chest pain, discomfort or palpitations. Pulmonary: No SOB GI:No abdominal pain, no nausea or vomiting, no anorexia, no blood in stool : no burning micturition, dysuria or increase in urinary frequency Neurologic: No dizziness, no weakness in extremities MSK: no back pain or joint stiffness Physical exam General: sitting comfortably in bed in no acute distress HEENT: normocephalic/atraumatic, EOM intact, moist oral mucosa Neck: supple, symmetrical, no palpable masses , no dorsocervical or supraclavicular fat pads Cardiac: normal heart sounds Pulm: normal breath sounds B/L, no added breath sounds Abd: not distended, no tenderness Extremities: no edema, no signs of myxedema, mild tremors noted Neuro: AAO x3, Speech: normal, no facial droop, moving all 4 extremities Skin: no rash Foot exam: intact sensation to monofilament, intact pulses, intact vibration Laboratory Tests 03/11/24 05/13/24 11:20 14:24 TSH < 0.01 L 0.20 L Free T4 1.79 0.98 Thyroglobulin <0.1 Thyroglobulin Antibody <1 Laboratory Tests 05/20/18 11/19/18 02/18/19 12:10 11:38 11:47 TSH Thyroglobulin 0.3 H 0.3 H 0.8 H Free T4 Thyroglobulin Fn Nl As Free T3 Thyroglobulin Antibody <1 <1 <1 03/09/19 06/12/19 08/12/19 10:12 12:05 08:26 TSH Thyroglobulin 2.4 H 0.1 H 0.3 H Free T4 Thyroglobulin Fn Nl As Free T3 Thyroglobulin Antibody <1 <1 <1 05/25/20 05/31/20 08/23/21 09:50 09:39 13:48 TSH 1.26 0.90 0.11 L Thyroglobulin 0.2 H 0.4 H 0.2 L Free T4 Thyroglobulin Fn Nl As Free T3 Thyroglobulin Antibody <1 <1 <1 09/18/21 09/25/21 10/30/21 10:55 10:32 12:30 TSH 24.73 H 41.63 H Thyroglobulin 1.3 L 1.7 L Free T4 < 0.40 L Thyroglobulin Fn Nl As <0.1 Free T3 Thyroglobulin Antibody <1 <1 11/17/21 01/23/22 06/04/22 08:30 10:50 13:16 TSH 2.07 0.03 L 0.02 L Thyroglobulin 0.2 L 0.2 L 0.3 L Free T4 1.05 1.50 1.12 Thyroglobulin Fn Nl As Free T3 Thyroglobulin Antibody <1 <1 <1 11/08/22 11/13/22 11/23/22 13:14 11:29 11:30 TSH 8.44 H 24.45 H 46.19 H Thyroglobulin 0.3 H 0.5 H 1.5 H Free T4 < 0.42 L < 0.42 L < 0.42 L Thyroglobulin Fn Nl As Free T3 Thyroglobulin Antibody <1 <1 <1 01/04/23 08/05/23 12:10 11:15 TSH 0.07 L < 0.01 L Thyroglobulin 0.1 H Free T4 1.28 1.18 Thyroglobulin Fn Nl As Free T3 3.9 Thyroglobulin Antibody <1 US SOFT TISSUE NECK 04/10/24 CLINICAL INFORMATION: Personal history of malignant neoplasm thyroid. COMPARISON: Ultrasound-guided lymph node biopsy 10/30/2021. Ultrasound soft tissue neck 10/16/2021 and 07/27/2021. TECHNIQUE: Ultrasound of the neck soft tissues is performed with high- frequency perez-scale imaging and color Doppler. FINDINGS: THYROID BED: Prior thyroidectomy. No residual thyroid tissue demonstrated in the thyroid bed. No cystic or solid nodules demonstrated in the thyroid bed. RIGHT NECK SOFT TISSUES: Scattered architecturally normal nodes are present. The nodes show normal fatty hilus, normal cortical thickness, and no cystic change or calcification. No abnormal color flow. The largest nodes are as follows: Level 1B: 1.2 x 0.4 x 0.7 cm. Normal ryan architecture. Level 3: 1.2 x 0.3 x 1.0 cm. Normal ryan architecture. LEFT NECK SOFT TISSUES: Scattered architecturally normal nodes are present. The nodes show normal fatty hilus, normal cortical thickness, and no cystic change or calcification. No abnormal color flow. The largest nodes are as follows: Level 1A: 1.0 x 0.5 x 0.6 cm. Normal ryan architecture. Level 2: 0.5 x 0.2 x 0.5 cm. Normal ryan architecture. Level 3: 1.5 x 0.5 x 0.6 cm. Normal ryan architecture. US/US soft tiss head and/or neck IMPRESSION: 1. The thyroid gland is surgically absent. No abnormal mass or fluid collection is demonstrated within the thyroid bed. 2. There are scattered bilateral cervical lymph nodes, one at right level 3 borderline enlarged, with normal architectural features. Recommend management on a clinical basis. If clinically indicated further evaluation of the neck soft tissues and nodes may be performed with CT soft tissue neck with intravenous contrast. Electronically signed by: Curtis Soni MD 04/16/2024 07:03 PM EDT RP US SOFT TISSUE NECK 10/16/21 CLINICAL INFORMATION: Lymph node mapping. COMPARISON: Ultrasound 03/14/2020. TECHNIQUE: Ultrasound of the neck soft tissues was performed with high- frequency perez-scale imaging and color Doppler. FINDINGS: THYROID BED: Prior thyroidectomy. No residual thyroid tissue demonstrated in the thyroid bed. No cystic or solid nodules demonstrated in the thyroid bed. RIGHT NECK SOFT TISSUES: Scattered architecturally normal nodes are present. The nodes show normal fatty hilus, normal cortical thickness, and no cystic change or calcification. No abnormal color flow. The largest nodes are as follows: Level Ib: 0.72 x 0.35 x 0.61 cm. Normal ryan architecture. Not seen previously. Level Ib: 0.87 x 0.50 x 0.96 cm cm. Normal ryan architecture. Not seen previously. Level III: 0: 96 x 0.41 x 0.70 cm. Normal architecture. Previously measured 1.1 x 0.23 x 1.1 cm Level III: 0.76 x 0.60 x 0.3 cm. Normal architecture. Not seen previously. LEFT NECK SOFT TISSUES: Scattered architecturally normal nodes are present. The nodes show normal fatty hilus, normal cortical thickness, and no cystic change or calcification. No abnormal color flow. The largest nodes are as follows: Level III: 1.2 x 0.5 x 0.73 cm. Normal ryan architecture. Measured 1.7 x 0.50 x 0.72 cm previously. Level III: 1.1 x 0.36 x 0.71 cm cm. Normal ryan architecture. Not seen previously. Level III: 1.1 x 0.51 x 0.94 cm. Normal ryan architecture. Previously measured 1.8 x 0.50 x 0.92 cm. US/US soft tiss head and/or neck IMPRESSION: 1. Minimal improvement in the size of the lymph nodes, compared to the previous exam 03/14/2020. Some of the small lymph nodes were not seen previously but are less than 1 cm. US SOFT TISSUE NECK 07/27/21 CLINICAL INFORMATION: Lymph node mapping. COMPARISON: Ultrasound 03/14/2020. TECHNIQUE: Ultrasound of the neck soft tissues was performed with high- frequency perez-scale imaging and color Doppler. FINDINGS: THYROID BED: Prior thyroidectomy. No residual thyroid tissue demonstrated in the thyroid bed. No cystic or solid nodules demonstrated in the thyroid bed. RIGHT NECK SOFT TISSUES: Scattered architecturally normal nodes are present. The nodes show normal fatty hilus, normal cortical thickness, and no cystic change or calcification. No abnormal color flow. The largest nodes are as follows: Level Ib: 0.72 x 0.35 x 0.61 cm. Normal ryan architecture. Not seen previously. Level Ib: 0.87 x 0.50 x 0.96 cm cm. Normal ryan architecture. Not seen previously. Level III: 0: 96 x 0.41 x 0.70 cm. Normal architecture. Previously measured 1.1 x 0.23 x 1.1 cm Level III: 0.76 x 0.60 x 0.3 cm. Normal architecture. Not seen previously. LEFT NECK SOFT TISSUES: Scattered architecturally normal nodes are present. The nodes show normal fatty hilus, normal cortical thickness, and no cystic change or calcification. No abnormal color flow. The largest nodes are as follows: Level III: 1.2 x 0.5 x 0.73 cm. Normal ryan architecture. Measured 1.7 x 0.50 x 0.72 cm previously. Level III: 1.1 x 0.36 x 0.71 cm cm. Normal ryan architecture. Not seen previously. Level III: 1.1 x 0.51 x 0.94 cm. Normal ryan architecture. Previously measured 1.8 x 0.50 x 0.92 cm. US/US soft tiss head and/or neck IMPRESSION: 1. Minimal improvement in the size of the lymph nodes, compared to the previous exam 03/14/2020. Some of the small lymph nodes were not seen previously but are less than 1 cm. [facility] Medical History Hypotension Osteoarthritis of knees, bilateral Fibromyalgia Hyperparathyroidism Vitamin D deficiency History of thyroid cancer Postsurgical hypothyroidism H/O malignant neoplasm of skin Lumbar spondylosis Vitamin D deficiency Osteopenia Dyslipidemia Diabetic polyneuropathy associated with type 2 diabetes mellitus Post-surgical hypothyroidism Primary thyroid cancer Diabetes type 2, controlled Surgical History History of lip cancer History of biopsy History of bunionectomy Hx of cholecystectomy Hx of thyroidectomy Hx of colonoscopy History of carpal tunnel release Hx of hysterectomy Hx of mastectomy Family History Father Diabetes mellitus Mother Cancer of eye Skin cancer of nose Social History Household Members: None Housing: Apartment Are you a primary primary health care nurse to a significant other at home: No Do you presently have 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) Unable to assess alcohol history related to: Unable to respond Alcohol intake: never Comment: ref alarm, ambulating in room Patient Tobacco Use Status: Current everyday Tobacco user Substance Use Type: Opiates service: No Current occupational status: disabled Physical Exam Vital Signs: Last Vital Signs Pulse 67 06/11/24 13:00 BP 112/50 L 06/11/24 13:00 BMI result Body Mass Index 28.3 Assessment & Plan Assessment & Plan (1) History of thyroid cancer: Code(s): Z85.850 - Personal history of malignant neoplasm of thyroid Category: Medical Plan: Patient with history of left lobe multifocal PTC with 2 foci each 1 cm, status post total thyroidectomy in February of 2014, AJCC stage I disease (pT3 pN1 MX), KEKE intermediate risk of recurrence due to microscopic extrathyroidal extension involving the perithyroidal tissue. Margins were negative. Lymphatic invasion of 1/1 perithyroidal lymph node. KEKE indeterminate response. Over the last many years she has been followed with serial ultrasounds, whole- body scan in TG levels. Her Non stimulated Tg levels have mostly been in the range within the range of 0.1-0.5 and stimulated within the range of 1.5-1.7, more or less stable. I would classify her as KEKE indeterminate response to therapy due to mildly detectable TG levels intermittently.. While she has had some focal uptake on her left side of whole-body scan, with last 1 being in December 11, her ultrasounds have not shown any suspicious lymph nodes, and previously when they did in , biopsy was negative for malignancy. Most recent ultrasound from March 2024 without any abnormal lymph nodes, showed bilateral normal looking lymph nodes. Labs from February 2024 showed undetectable TG levels however TSH was suppressed. I will plan to repeat her thyroglobulin tumor markers in 6 months from now which would be around November 2024 to reclassify her according to dynamic risk stratification. In February 2024 I also reduced her levothyroxine dose from 150 mcg to 137 mcg daily because her TSH was suppressed, and our goal TSH is anywhere between 0.12-0.5. Now 137 mcg daily of levothyroxine most recent labs from April 2024 showed TSH of 0.2 which is within goal. She does have mild symptoms of palpitations intermittently and does have Prevnar and exam today, however we will continue to keep her on this dose for now and plan to check TSH and free T4 in another 3 months. In indeterminate response, 15% to 20% we will have structural disease identified during follow-up, however in the remainder of the nonspecific changes are either stable or resolved, less than 1% have disease specific Plan: -plan to repeat ultrasound of the neck in 1 year from the last 1 sometime around March 2025 -ordered TSH and free T4 to be done in 3 months from now -another set of labs with TSH, free T4, TG and TG antibody levels in 6 months around November 2024 with follow up after -continue levothyroxine 137 mcg daily. (2) Postsurgical hypothyroidism: Code(s): E89.0 - Postprocedural hypothyroidism Category: Medical Plan: Patient with postsurgical hypothyroidism after total thyroidectomy due to thyroid cancer. She is currently KEKE indeterminate response to therapy due to mildly elevated but stable thyroglobulin levels. Her goal TSH at this time is 0.1-0.5. Labs from February 2024 showed undetectable TG levels however TSH was suppressed. I will plan to repeat her thyroglobulin tumor markers in 6 months from now which would be around November 2024 to reclassify her according to dynamic risk stratification. In February 2024 I also reduced her levothyroxine dose from 150 mcg to 137 mcg daily because her TSH was suppressed, and our goal TSH is anywhere between 0.12-0.5. Now 137 mcg daily of levothyroxine most recent labs from April 2024 showed TSH of 0.2 which is within goal. She does have mild symptoms of palpitations intermittently and does have Prevnar and exam today, however we will continue to keep her on this dose for now and plan to check TSH and free T4 in another 3 months. Plan: -obtain TSH and free T4 levels in 3 months -continue levothyroxine 137 mcg daily Plan I spent 30 minutes in reviewing the record, seeing the patient and documenting in the medical record. Orders: Orders 2 Thyroid Stimulating Hormone 3 Months C73 - Malignant neoplasm of thyroid gland, E03.9 - Hypothyroidism, unspecified Thyroid Stimulating Hormone 6 Months C73 - Malignant neoplasm of thyroid gland, E03.9 - Hypothyroidism, unspecified Thyroglobulin 6 Months C73 - Malignant neoplasm of thyroid gland, E03.9 - Hypothyroidism, unspecified Free T4 (Free Thyroxine) 3 Months C73 - Malignant neoplasm of thyroid gland, E03.9 - Hypothyroidism, unspecified Thyroglobulin Antibodies 6 Months C73 - Malignant neoplasm of thyroid gland, E03.9 - Hypothyroidism, unspecified Thyroglobulin Tumor Marker 6 Months C73 - Malignant neoplasm of thyroid gland, E03.9 - Hypothyroidism, unspecified Free T4 (Free Thyroxine) 6 Months C73 - Malignant neoplasm of thyroid gland, E03.9 - Hypothyroidism, unspecified Medications: Refilled 2 levothyroxine 137 mcg PO DAILY 30 caps 8RF Patient Instructions: Do labs in 3 months and then again in 6 months I will see you back in 6 months, do blood work a week before the appointment Continue levothyroxine 137 mcg daily Coding Level of Care Code Est Pt Level 4 (57775) Complex EM visit Add On G2211 Diagnoses History of thyroid cancer Z85.850 Postsurgical hypothyroidism E89.0 Time Spent (min) 30
== END 2024-06-11 13:21 | disposition home or self-care (01) ==
PROVIDERS: PCP Internal Medicine; Visit Provider Student in an Organized Health Care Education/Training Program
DX: Z85.850 Personal history of malignant neoplasm of thyroid (principal); E89.0 Postprocedural hypothyroidism
CPT/HCPCS: 99214

== ENCOUNTER → 2024-06-11 12:43 | Outpatient (BNVA) | payer MEDICAID, SELFPAY | PROVIDERS: PCP Internal Medicine; Visit Provider Student in an Organized Health Care Education/Training Program | DX: E89.0 Postprocedural hypothyroidism (principal); C73 Malignant neoplasm of thyroid gland | CPT/HCPCS: 99212 ==

== ENCOUNTER 2024-07-23 15:58 | Outpatient (REF) | payer MEDICAID, SELFPAY | END 2024-07-23 15:59 | disposition home or self-care (01) | LOC: HO.HHCLNP 15:58 | PROVIDERS: Visit Provider Advanced Practice Midwife | DX: R30.0 Dysuria (principal) | CPT/HCPCS: 87086; 87088; 87186 ==

== ENCOUNTER 2024-07-24 12:58 | Outpatient (AMB) | payer MEDICAID, SELFPAY ==
--- NOTE | 2024-07-24 12:59 | A.OFFVIS_ITS ---
Vital Signs 07/24/24 13:08 Height 5 ft 2 in Weight 157 lb 4 oz BMI 28.8 BP 109/55 L Blood Pressure Location Lt brachial Position Sitting Pulse 65 Pulse Source Pulse Oximeter Pulse Oximetry (%) 97 Oxygen Delivery Method Room Air Intake Visit Reasons: Midline to low back pain Intake Note: Pain today 8/10 Missile Control Pilot Required: Yes Missile Control Pilot Language: Micronesian Accompanied by: Spouse Allergies ibuprofen Allergy (Verified 07/24/24 13:07) Itching HPI Comments Details: Patient is a very pleasant 63-year-old Micronesian-speaking female who presents the office today, accompanied by her significant other, for evaluation and kaitlynn kelly of her chronic lower back pain Visit was completed with Jeanna Franco [facility] storage facility housekeeper Patient complains of 15 years lower back pain without radiation down either lower extremity. States this started after she fell down some stairs. Endorses midline lower back pain without radiation down either lower extremity Worse with movement, palpation, bending, lifting, standing, lying down Patient also states she has fibromyalgia and arthritis, therefore she has diffuse pain ?everywhere? Denies recent imaging Denies recent attempts at PT, chiropractor, acupuncture or massage She is previously a patient at [facility] pain management where she underwent injections. These provided her very short-term relief. She is not interested in further interventional treatment options Currently taking ibuprofen as needed. She is also taking tramadol as needed and states this provides her some relief She has been on gabapentin in the past but it was stopped because it did not give her any pain relief Pain today is rated as a 10/10, constant In terms of muscle damage condition is described as sharp, stabbing, aching, throbbing, burning Pain is negatively impacting patient's enjoyment of life, general activity, mood, ambulation, sleep ability to perform activities of daily living, ability to care for herself. Patient has 2 aides that help her throughout the day with activities of daily living Denies current use of anticoagulants Denies implantable devices, pacemaker or defibrillator [facility] Medical History Hypotension Osteoarthritis of knees, bilateral Fibromyalgia Hyperparathyroidism Vitamin D deficiency History of thyroid cancer Postsurgical hypothyroidism H/O malignant neoplasm of skin Lumbar spondylosis Vitamin D deficiency Osteopenia Dyslipidemia Diabetic polyneuropathy associated with type 2 diabetes mellitus Post-surgical hypothyroidism Primary thyroid cancer Diabetes type 2, controlled Surgical History History of lip cancer History of biopsy History of bunionectomy Hx of cholecystectomy Hx of thyroidectomy Hx of colonoscopy History of carpal tunnel release Hx of hysterectomy Hx of mastectomy Family History Father Diabetes mellitus Mother Cancer of eye Skin cancer of nose Social History Household Members: None Housing: Apartment Are you a primary morning caregiver to a significant other at home: No Do you presently have visiting nurse or other home services: Yes (research aide) Unable to assess alcohol history related to: Unable to respond Alcohol intake: never Comment: ref alarm, ambulating in room Patient Tobacco Use Status: Current everyday Tobacco user Substance Use Type: Opiates service: No Current occupational status: disabled Review of Systems Const All systems reviewed & are unremarkable except as noted in HPI and below Physical Exam Vital Signs: Last Vital Signs Pulse 65 07/24/24 13:08 BP 109/55 L 07/24/24 13:08 Pulse Ox 97 07/24/24 13:08 Oxygen Delivery Method Room Air 07/24/24 13:08 BMI result Body Mass Index 28.8 General: awake, alert, oriented. Answers questions appropriately. Fully engaged in examination. Skin: warm, dry, intact HEENT: Normocephalic. Hearing intact. Cardiac: External chest normal in appearance. Respiratory: No cough, audible wheezing or stridor. Abdomen: without gross distension. MS: No obvious swelling or deformities. Able to transition from sit to stand unassisted. Ambulates with bilaterally normal heel strike and toe off SLR negative bilaterally Tender to palpation midline lumbar vertebrae and lumbar paraspinal muscles Facet loading positive Bilateral lower extremity strength 5/5 Nontender over bilateral PSIS Neurological: Oriented to person, place, time and situation. Thought process intact. Ambulates with the use of a cane Psychiatric: Appropriate mood and affect. Good judgment and insight. Results Reviewed Results Reviewed: 09/2021 XR Lumbar Spine FINDINGS: Normal alignment. No compression fracture. Mild multilevel degenerative endplate changes throughout the lumbar spine without significant disc space narrowing. Bilateral pars defects at L5. The soft tissues are unremarkable. The bowel gas pattern is normal. IMPRESSION: Stable spondylosis. Stable bilateral pars defects at L5 with no malalignment. Assessment & Plan Assessment & Plan (1) Fibromyalgia: Code(s): M79.7 - Fibromyalgia Category: Medical (2) Lumbar spondylosis: Code(s): M47.816 - Spondylosis without myelopathy or radiculopathy, lumbar region Category: Medical (3) Chronic back pain: Code(s): M54.9 - Dorsalgia, unspecified; G89.29 - Other chronic pain Category: Medical Plan Patient presented to the office today for evaluation and management of her chronic lower back pain History, physical exam and provocative testing consistent with lumbar spondylosis X-ray offered, patient declined PT offered, patient declined Discussed options for treatment including diagnostic interventional testing, epidural steroid injections, peripheral nerve stimulation with Sprint, RFA and more permanent neuromodulation. Patient declines any types of interventional management. States she has been through this previously at [facility] pain management she is not interested in proceeding with interventional pain management at this time. All questions and concerns have been answered and patient will call the office if she would like to proceed with any injections Coding Level of Care Code New Pt Level 4 (23913) Complex EM visit Add On G2211 Diagnoses Fibromyalgia M79.7 Lumbar spondylosis M47.816 Chronic back pain M54.9; G89.29
[2024-07-24 13:08] VITALS: BP 109/55; PULSE 65; O2SAT 97; BMI 28.8
== END 2024-07-24 13:32 | disposition home or self-care (01) ==
PROVIDERS: PCP Internal Medicine; Referring Provider Internal Medicine; Visit Provider Registered Nurse Emergency
DX: M79.7 Fibromyalgia (principal); M47.816 Spondylosis without myelopathy or radiculopathy, lumbar region; M54.9 Dorsalgia, unspecified; G89.29 Other chronic pain
CPT/HCPCS: 99204

== ENCOUNTER → 2024-07-24 12:58 | Outpatient (BNVA) | payer MEDICAID, SELFPAY | PROVIDERS: PCP Internal Medicine; Referring Provider Internal Medicine; Visit Provider Registered Nurse Emergency | DX: M79.7 Fibromyalgia (principal); M47.816 Spondylosis without myelopathy or radiculopathy, lumbar region; M54.9 Dorsalgia, unspecified; G89.29 Other chronic pain | CPT/HCPCS: 99212 ==

== ENCOUNTER 2024-10-27 10:38 | Outpatient (REF) | payer MEDICAID, SELFPAY ==
--- NOTE | ~2024-10-27 | XR_ITS ---
EXAMINATION: XR PELVIS 1-2 VIEWS HISTORY: M25.559 - Pain in unspecified hip COMPARISON: Correlation is made with plain films of the right hip dated 06/05/2024. FINDINGS: A single AP view of the pelvis is submitted. The bones are osteopenic. There is no fracture or dislocation. There is mild narrowing of the bilateral hip joints. The sacroiliac joints are maintained. The soft tissues are unremarkable. XR/XR pelvis 1-2V IMPRESSION: Osteopenia. Mild narrowing of the bilateral hip joints. Electronically signed by: Jose Luis Staley MD 10/27/2024 11:29 AM EDT
--- OUTSIDE RECORDS SUMMARY | 2024-10-28 12:11 | XMS_ITS | Encounter Summary ---
Author Organization [employer] Address 75 [facility] 7 [place] [address] Care Team Providers Care Wiper Blender Name Role Phone Gordon Velez MD Primary Care Prov ider Reason for Visit * Reason Onset Date Comments PT1 02/06/2023 Encounter Details Date Type Department Care Team ([facility] st Contact Info) Description 02/06/[address] [facility] MED & PEDS [address] [place] [address] Gordon Velez MD [address] [place] [address] PT1 Social History Tobacco Use Types Packs/Day [...] requesting PT1 Date: 02/21/23 Time: 12:15 Address: [address] [place] [address] Specialty: endocrinology [facility] Director: yes Wheelchair: no, cane documented in this encounter Plan of Treatment Upcoming Encounters Date Type Department Care Team (Late st Contact Info) Description 11/16/2024 11:15 AM EDT Telemedicine [facility] MED & PEDS [address] [place] [address] Gordon Velez MD [address] [place] [address] documented as of this encounter Visit Diagnoses Not on filedocumented in this encounter Care Teams Wiper Blender Relationship Specialty Start Date End Date Gordon Velez MD [address] [place] [address] PCP - General Internal Medicine 11/30/19 documented as of this encounter
--- OUTSIDE RECORDS SUMMARY | 2024-10-28 12:11 | XMS_ITS | Encounter Summary ---
Author Organization [employer] Address 75 [facility] 7 [place] [address] Care Team Providers Care Multi Operation Machine Operator Name Role Phone Gordon Velez MD Primary Care Prov ider Reason for Visit * Reason Onset Date Comments Prior Authorization 10/01/2024 Encounter Details Date Type Department Care Team (Late st Contact Info) Description 10/01/2024 Telephone [facility] MEDICINE [address] [place] [address] Gordon Velez MD [address] [place], [place] [phone] Prior Authorization Social History Tobacco Use Types [...] [employer] Lancets 33G misc. Contact pt at [phone] * Telephone Encounter - Alec Moran - 10/01/2024 12:35 PM EDT Tc from pt requesting PA for med [employer] Lancets 33G misc. Contact pt at [phone] documented in this encounter Plan of Treatment Upcoming Encounters Date Type Department Care Team (Late st Contact Info) Description 11/16/2024 11:15 AM EDT Telemedicine [facility] MED & PEDS [address] [place], [place] [phone] Gordon Velez MD [address] [place] [address] documented as of this encounter Visit Diagnoses Not on filedocumented in this encounter Additional Health Concerns Assessment Noted Time PHQ-9 Depression Total Score: 18 024 1:56 PM EDT documented as of this encounter Care Teams Multi Operation Machine Operator Relationship Specialty Start Date End Date Gordon Velez MD [address] [place] [address] PCP - General Internal Medicine 11/30/19 documented as of this encounter
--- OUTSIDE RECORDS SUMMARY | 2024-10-28 12:11 | XMS_ITS | Encounter Summary ---
Author Organization [employer] Address 75 [facility] 7 [place] [address] Care Team Providers Care Supervisory Lifeguard Name Role Phone Gordon Velez MD Primary Care Prov ider Reason for Visit * Reason Onset Date Comments Prior Authorization 10/23/2024 Lidocaine pa tches Encounter Details Date Type Department Care Team ([facility] Contact Info) Description 10/23/2024 Telephone [facility] MED & PEDS [address] [place] [address] Gordon Velez MD [address] [place] [address] Prior Authorization (Lidocaine patches ) Social History [...] Info) Description 11/16/2024 11:15 AM EDT Telemedicine [facility] MED & PEDS [address] [place] [address] Gordon Velez MD [address] [place] [address] documented as of this encounter Visit Diagnoses Not on filedocumented in this encounter Additional Health Concerns Assessment Noted Time PHQ-9 Depression Total Score: 5 10/17/19 25 10:16 AM EDT documented as of this encounter Care Teams Supervisory Lifeguard Relationship Specialty Start Date End Date Gordon Velez MD [address] [place] [address] PCP - General Internal Medicine 11/30/19 documented as of this encounter
--- OUTSIDE RECORDS SUMMARY | 2024-10-28 12:11 | XMS_ITS | Encounter Summary ---
Author Organization [employer] Address 75 [facility] 7 [place] [address] Care Team Providers Care Civil Celebrant Name Role Phone Gordon Velez MD Primary Care Prov ider Reason for Visit * Reason Onset Date Comments Appointment Request 02/15/2023 Encounter Details Date Type Department Care Team ([facility] st Contact Info) Description 02/15/2023 Telephone [facility] MED & PEDS [address] [place], [place] [phone] Gordon Velez MD [address] [place] [address] Appointment Request Social History Tobacco Use Types [...] requesting to r/s appt from 02/15/23. Details: [facility] f/up 01/14- r/s Patient speaks sami. documented in this encounter Plan of Treatment Upcoming Encounters Date Type Department Care Team (Late st Contact Info) Description 11/16/2024 11:15 AM EDT Telemedicine [facility] MED & PEDS [address] [place] [address] Gordon Velez MD [address] [place] [address] documented as of this encounter Visit Diagnoses Not on filedocumented in this encounter Care Teams Civil Celebrant Relationship Specialty Start Date End Date Gordon Velez MD [address] [place] [address] PCP - General Internal Medicine 11/30/19 documented as of this encounter
--- OUTSIDE RECORDS SUMMARY | 2024-10-28 12:11 | XMS_ITS | Clinical Summary ---
Author Organization [employer] Address 75 [facility] 7t [place] [address] Care Team Providers Care Carding Utility Tender Name Role Phone Gordon Velez MD Primary [...] 02/24/20 24 Active Blood Glucose Monitoring Suppl (Knimbuse) w/Device kit 1 kit 4 times daily. 1 kit 06/23/20 24 2024 Active Nebulizers [facility] Use nebulizer as instructed 1 each 07/07/20 [...] complication, without long-term current use of insulin ([facility]) 1 each by Other route Once per [...] NEEDED FOR WHEEZING 18 g 1 10/20/19 Active TRUEplus Lancets 33G miscIndications: Type 2 diabetes mellitus without complication, without long-term current use of insulin ([facility]) TEST BLOOD SUGAR FOUR TIMES DAILY 100 each 11 12/23/19 24 2024 Discontinued(R eorder (will not trigger notification to Pharmacy)) FREESTYLE LITE test strip USE TO TEST BLOOD SUGAR FOUR TIMES DAILY 100 strip 11 05/14/20 24 2024 Discontinued(R eorder (will not trigger notification to Pharmacy)) lactulose (Chronulac) 10 GM/15ML solution TAKE 15 [...] complication, without long-term current use of insulin ([facility]) 1 each by Other route Once per day. 90 each 3 10/03/19 25 2024 Discontinued(R eorder (will not trigger notification to Pharmacy)) Active Problems Patient Care Coordination No te Formatting of this note migh t be different from the original. [id number] Piyush Shravan, TC-LVM Problem Noted Date Diagnosed Date Right [...] uptake on the left side, followed at [facility] and she is [...] AM EDT): Patient was receiving tramadol from direct support specialist, but recent screening test was positive for [...] 08/02/2022 Hyperlipidemia associated with type 2 diabetes alcides mitchell 08/02/2022 Assessment & Plan (07/07/2024 10:33 AM [...] Encounters Date Type Department Care Team Description 10/28/2024 Refill [facility] [address] [place] [address] Erica Anaya MD Chronic right shoulder pain 10/23/2024 Telephone [facility] [address] [place] [address] Gordon Velez MD Prior Authorization (Lidocaine patches ) 10/23/2024 Telephone [facility] [address] [place] [address] Gordon Velez MD Nurse Triage 10/18/2024 Refill [facility] [address] [place] [address] Gordon Velez MD Severe persistent asthma without complication 10/16/2024 10:30 AM EDT Telemedicine [facility] [address] [place] [address] Gordno Velez MD Chronic idiopathic constipation (Primary Dx); Screen for colon cancer 10/16/2024 Travel 10/14/2024 Telephone [facility] [address] [place] [address] Gordon Velez MD chart prep 10/13/2024 Telephone [facility] [address] [place] [phone] Gordon Velez MD 10/07/2024 Orders Only [facility] [address] [place] [address] Gordon Velez MD Type 2 diabetes mellitus without complication, without long-term current use of insulin ([facility]) 10/02/2024 Telephone [facility] [address] [place] [address] Gordon Velez MD Medication Question 10/02/2024 Population Health Risk Score [facility] () Department [address] [place] [phone] Provider, Population Health Generic 10/01/2024 Telephone [facility] [address] [place] [address] Gordon Velez MD Prior Authorization 09/30/2024 Refill [facility] [address] [place] [address] Erica Anaya MD Chronic right shoulder pain 09/26/2024 Refill [facility] [address] [place] [address] Gordon Velez MD Seasonal allergies 09/23/2024 11:30 AM EST Office Visit [facility] [address] [place] [address] Erica Anaya MD Encounter for immunization (Primary Dx); Chronic right shoulder pain 09/23/2024 Refill [facility] [address] [place] [address] Paige Harris RN 09/23/2024 Telephone [facility] [address] [place] [address] Gordon Velez MD 09/23/2024 Travel 09/22/2024 Telephone [facility] [address] [place] [address] Gordon Velez MD Nurse Triage 09/18/2024 Telephone [facility] [address] [place] [address] Gordon Velez MD Medication Question 09/18/2024 Refill [facility] [address] [place] [address] Gordon Velez MD 09/17/2024 Outside Procedure [facility] [address] [place] [phone] Ashlie Velasquez, OD Presbyopia (Primary Dx) 09/17/2024 Telephone [facility] [address] [place] [address] Gordon Velez MD Med Request 09/14/2024 9:15 AM EST Office Visit [facility] [address] [place] [address] Ashlie Velasquez, OD Hyperopia of both eyes (Primary Dx) 09/10/2024 Refill [facility] [address] [place] [address] Gordon Velez MD 09/04/2024 Telephone [facility] [address] [place] [address] Ashlie Velasquez, OD 09/03/2024 Refill [facility] [address] [place] [address] Janette Bernstein MD Severe persistent asthma without complication 09/01/2024 Refill [facility] [address] [place] [address] Gordon Velez MD Moderate persistent asthma without complication 08/24/2024 Telephone [facility] [address] [place] [address] Gordon Velez MD Referral 08/21/2024 Refill [facility] [address] [place] [address] Gordon Velez MD Type 2 diabetes mellitus without complications (CMS/HCC) 08/20/2024 Refill [facility] [address] [place] [address] Gordon Velez MD Chronic idiopathic constipation 08/13/2024 Refill [facility] [address] [place] [address] Gordon Velez MD 08/07/2024 10:30 AM EST Office Visit [facility] [address] [place] [address] Gordon Velez MD Type 2 diabetes mellitus without complication, without long-term current use of insulin (CMS/HCC); Chronic midline low back pain without sciatica 08/07/2024 Refill [facility] [address] [place] [address] Gordon Velez MD Chronic midline low back pain without sciatica 08/07/2024 Travel 08/06/2024 Telephone [facility] [address] [place] [address] Gordon Velez MD Chart Prep 08/05/2024 2:00 PM EST Office Visit [facility] [address] [place], [place] [phone] Ron, Ashlie, OD Type 2 diabetes mellitus without complication, without long-term current use of insulin (CMS/HCC) (Primary Dx); Combined forms of age-related cataract of both eyes; Hyperopia of both eyes 08/05/2024 Travel 08/03/2024 Travel 07/31/2024 Telephone [facility] [address] [place] [address] Gordon Velez MD Medication Question 07/30/2024 Telephone [facility] [address] [place] [address] Gordon Velez MD Nurse Triage 07/30/2024 Refill [facility] [address] [place], [place] [phone] Gordon Velez MD Chronic midline low back [...] Info) Description 11/16/2024 11:15 AM EDT Telemedicine [facility] [address] [place] [address] Gordon Velez MD [address] [place] [address] Health Maintenance Due Date Last Done Comments [...] - 6.0 % QC Media Lot # Comment:[id number] Lot# Expiration Date Comment:02/19/2026 Blood 08/07/2024 10:3 4 AM EST Gordon Rose MD POINT OF CARE TEST ENTER/EDIT ORDERABLES Final Result * POCT glucose manually resulted (08/07/2024 10:34 AM EST) Pathologist [facility] Glucose Blood, POC 172 60 - 200 mg/dL QC Media Lot # Comment:[id number] Lot# Expiration Date Comment:10/27/2024 Blood Capillary blood specimen / Unknown 08/07/2024 10:34 AM EST Gordon Rose MD POINT OF CARE TEST ENTER/EDIT ORDERABLES Final Result * Hepatitis C Antibody with Reflex to HCV, RNA, Quantitative, Real-Time PCR (05/13/2024 2:24 PM EDT) Pathologist [facility] Hepatitis C Antibody Nonreactive Nonreactive [facility] Comment:Antibodies to HCV no t detected; does not exclude early acuteHCV infection. Blood Venous blood specimen / Unknown 05/13/2024 2:24 PM EDT 05/13/2024 5:31 PM EDT Gordon Rose MD LAB BLOOD ORDERABL ES Final Result [facility] [address] [place] [phone] * (ABNORMAL) Lipid Panel, Standard (05/13/2024 2:24 PM EDT) Pathologist [facility] Triglycerides 138 <150 mg/dL [facility] Comment:Desirable Triglyceri de: less than 150 mg/dLBorderline High Triglyceride 150-199 mg/dLHigh Triglyceride: 200-499 mg/dLVery High Triglyceride: greater than or equal to 5OO mg/dL Cholesterol 131 <200 mg/dL [facility] Comment:Desirable Cholestero l: less than 200 mg/dLBorderline High Cholesterol: 200-239 mg/dLHigh Cholesterol: greater than 239 mg/dL LDL Cholesterol Calculated 65 <100 mg/dL [facility] Comment:Desirable LDL: less than 100 mg/dLNear Optimal/Above Optimal LDL: 110- 129 mg/dLBorderline High LDL: 130-159 mg/dLHigh LDL: 160-189 mg/dLVery High LDL: greater than or equal to 190 mg/dL HDL Cholesterol 39(L) >40 mg/dL [facility] Comment:Desirable HDL: great er than 40 mg/dL Note: This HDL assay may give artificially low results in patients with liver disease. Blood Venous blood specimen / Unknown 05/13/2024 2:24 PM EDT 05/13/2024 5:31 PM EDT Gordon Rose MD LAB BLOOD ORDERABL ES Final Result [facility] [address] [place] [phone] * BI Mammogram Screening Tomosynthesis Left (09/19/2023 12:35 PM EST) Anatomical Region Laterality Modality Breast Left Mammography 09/19/2023 12:3 5 PM EST Narrative 09/23/2023 10:08 AM EST ? [facility] [place] ? [address] ?[place] [address] ? Mammography Report ? Signed ? Patient: Juan Ferguson,Jodi ?MR#: ?? [id number] ? : 1960 ?Acct:[id number] ? Age/Sex: 62 / F ?ADM Date: 02/29/24 ? Loc: HO.MAMMO ? Attending Dr: Sal Tabor CNM ? Ordering Physician: SAL TABOR CNM ?Results: 1 ?? Negative ? Date of Service: 09/19/23 ?Follow Up: 1 Year From Orig ?? inal Mammogram ? Procedure(s): MM tomosynthesis screening LT ?? Accession Number(s): [id number] ? cc: SAL TABOR CNM ? EXAMINATION: [...] 09/23/234 ? DD/ 1235 ? TD/TT: ? Hospice Art Therapist: ? Procedure Note Donotuseinterpreter, Image - 09/23/2023 [facility] [address] [place] [address] Mammography Report Signed Patient: Herman Saenz#: [id number] : 1960Acct:[id number] Age/Sex: 62 / FADM Date: 09/19/23 Loc: HO.MAMMO Attending Dr: Sal Tabor CNM Ordering Physician: SAL TABORults: 1 Negative Date of Service: 09/19/23Follow Up: 1 Year From Orig inal Mammogram Procedure(s): MM tomosynthesis screening LT Accession Number(s): [id number] cc: SAL TABOR CNM EXAMINATION: MM SCREENING [...] in OV> 09/23/23 1004 DD/ 1235 TD/TT: Hospice Art Therapist: Sal Tabor [facility] IM[facility] BI PROCEDURES Final R [...] has been evaluated with computer assisted technology. [employer] [facility] Box Spinner: SEE COMMENT [facility] Comment: SL, CT(ASCP) CT screening location: [address] ??[address] HPV nRNA E6/E7 Not Detected Not Detected [facility] Comment: Methodology: Cadet Deck-Mediated Amplification This assay detects E6/E7 viral messenger RNA (mRNA) from 14 high-risk HPV types (16,18,31,33,35,39,45,51,52,56,58,59,66,68). ? Cervical sources are required for HPV testing. If a vaginal source from a patient who has had a total hysterectomy with removal of cervix was ?? submitted, please contact the testing laboratory for alternative testing options. ?? For additional information, please refer to http://education.REMOTV/faq/BUS189t3 (This link if provided for information/ educational purposes only.) Interpretation/Res ult: SEE COMMENT [facility] Comment: Negative for intraepithelial lesion or malignancy. Atrophic pattern; predominantly parabasal cells LMP: NONE [facility] Prev. BX: NONE [facility] Prev. PAP: 03/2019 NIL/NEG HYST 2 CHERELLE 2011 [facility] Review Box Spinner: SEE COMMENT [facility] Comment: [place], CT(ASCP) CT screening location: [address] ??[address] SOURCE: None given [facility] Statement Of Adequacy: SATISFACTORY FOR EVALUATION [facility] 04/10/2022 11:2 2 AM EDT Sal Tabor CNM LAB PATHOLOGY ORDERABLES Final Result Performing Organization Address City/[facility]/ZIP Co de Phone Number [facility] [address] * MICROALBUMIN, RANDOM (05/31/2020 12:00 AM EST) Creatinine Urine 33.22 mg/dL [facility] Microalbum/Creati nine Ratio Ur TNP ug/mg cr [facility] Comment: Unable to calculate albumin/creatinine ratio due to low microalbumin or creatinine result. Microalbumin Urine <5.0 mg/L [facility] 05/31/2020 Historical Provider HISTORICAL/NON ORDERABLE LABS Final Result Performing Organization Address [facility] Co de Phone Number [facility] [address] * Hm Colonoscopy (11/24/2015 12:21 PM EDT) Historical Provider HEALTH MAINTENANCE Final Result from Last 3 Months or Most Recently Relevant to Health Maintenance [place] [address] STANDARD MEDICARE Care Teams Carding Utility Tender Relationship Specialty Start Date End Date Gordon Velez MD [address] [place] [phone] PCP - General Internal Medicine 11/30/19
--- OUTSIDE RECORDS SUMMARY | 2024-10-28 12:11 | XMS_ITS | Encounter Summary ---
Author Organization [employer] Address 75 [facility] 7t [place] [address] Care Team Providers Care Marketing Operations Analyst Name Role Phone Gordon Velez MD Primary Care Prov ider Encounter Details Date Type Department Care Team ([facility] st Contact Info) Description 10/07/2024 Orders Only [facility] [address] [place], [place] [phone] Gordon Velez MD [address] [place] [address] Type 2 diabetes mellitus without complication, without long-term current use of insulin ([facility]) Social History Tobacco Use Types Packs/Day Years [...] Info) Description 11/16/2024 11:15 AM EDT Telemedicine [facility] [address] [place] [address] Gordon Velez MD [address] [place] [address] documented as of this encounter Visit Diagnoses Diagnosis Type 2 diabetes mellitus without complication, without long-term current use of insulin ([facility]) documented in this encounter Additional Health Concerns Assessment Noted Time PHQ-9 Depression Total Score: 18 024 1:56 PM EDT documented as of this encounter Care Teams Marketing Operations Analyst Relationship Specialty Start Date End Date Gordon Velez MD [address] [place] [address] PCP - General Internal Medicine 11/30/19 documented as of this encounter
--- OUTSIDE RECORDS SUMMARY | 2024-10-28 12:11 | XMS_ITS | Encounter Summary ---
Author Organization [employer] Address 75 [facility] 7t [place] [address] Care Team Providers Care Material Assistant Name Role Phone Gordon Velez MD Primary Care Prov ider Reason for Visit * Reason Onset Date Comments Mamogram Order 05/15/2024 Encounter Details Date Type Department Care Team ([facility] st Contact Info) Description 05/15/2024 Telephone [facility] [address] [place] [address] Gordon Velez MD [address] [place], [place] [phone] Mamogram Order Social History Tobacco Use Types [...] any questions you can contact pt at [phone]. (Bulgarian Speaker) documented in this encounter Plan of Treatment Upcoming Encounters Date Type Department Care Team (Late st Contact Info) Description 11/16/2024 11:15 AM EDT Telemedicine [facility] [address] [place] [address] Gordon Velez MD [address] [place] [address] documented as of this encounter Visit Diagnoses Not on filedocumented in this encounter Additional Health Concerns Assessment Noted Time PHQ-9 Depression Total Score: 18 024 1:56 PM EDT documented as of this encounter Care Teams Material Assistant Relationship Specialty Start Date End Date Gordon Velez MD [address] [place] [address] PCP - General Internal Medicine 11/30/19 documented as of this encounter
--- OUTSIDE RECORDS SUMMARY | 2024-10-28 12:11 | XMS_ITS | Encounter Summary ---
Author Organization [employer] Address 75 [facility] 7t [place] [address] Care Team Providers Care Final Canoe Inspector Name Role Phone Gordon Velez MD Primary Care Prov ider Reason for Visit * Reason Onset Date Comments Med Request 09/17/2024 Encounter Details Date Type Department Care Team ([facility] st Contact Info) Description 09/17/2024 Telephone [facility] [address] [place] [address] Gordon Velez MD [address] [place], [place] [phone] Med Request Social History Tobacco Use Types [...] AM EST Tc from pt requesting medication Emjzyoj-Utkikzu-Zscuie Collin (Medicated Pain Relieving) 1.2-5.7-6.3 % patch to be sent to [facility], pt inform she needs a better dosage for pain. documented in this encounter Plan of Treatment Upcoming Encounters Date Type Department Care Team (Late st Contact Info) Description 11/16/2024 11:15 AM EDT Telemedicine [facility]EDS [address] [place] [address] Gordon Velez MD [address] [place] [address] documented as of this encounter Visit Diagnoses Not on filedocumented in this encounter Additional Health Concerns Assessment Noted Time PHQ-9 Depression Total Score: 18 024 1:56 PM EDT documented as of this encounter Care Teams Final Canoe Inspector Relationship Specialty Start Date End Date Gordon Velez MD [address] [place] [phone] PCP - General Internal Medicine 11/30/19 documented as of this encounter
--- OUTSIDE RECORDS SUMMARY | 2024-10-28 12:11 | XMS_ITS | Clinical Summary ---
Author Organization [address] [facility] Address [address] [place] [address] Phone Care Team Providers Care Railcar Carpenter Name Role Phone Gordon Velez Primary Care [...] propionate (FLONASE) 50 mcg/actuation nasal spray 1 [place] by Each Nare route 2 times daily. [...] Vaccine (1 - 2023-2 5 season) 2024 Diabetes: Annual Urine Albumin-Creatinine Ratio (uACR) 06/01/2024 Diabetes: Blood Sugar Contro l Test (HGBA1C) 06/01/2024 Falls Risk Assessment 10/11/2024 Influenza Vaccine (Season Ended) 2025 RSV Immunization Adult Patie nts (1 - [...] topic Insurance MEDICAID - [place] Care Teams Railcar Carpenter Relationship Specialty Start Date End Date Gordon Velez [address] [place] [address] PCP - General Internal Medicine 05/15/24
--- OUTSIDE RECORDS SUMMARY | 2024-10-28 12:11 | XMS_ITS | Encounter Summary ---
Author Organization [employer] Address 75 [facility] 7t [place] [address] Care Team Providers Care Core Blower Operator Name Role Phone Gordon Velez MD Primary Care Prov ider Reason for Visit * Reason Onset Date Comments Nurse Triage 10/23/2024 Encounter Details Date Type Department Care Team (Late st Contact Info) Description 10/23/2024 Telephone [facility] [address] [place] [address] Gordon Velez MD [address] [place], [place] [phone] Nurse Triage Social History Tobacco Use Types [...] 12:45 PM EDT Called patient back require power and recovery supervisor for triage BLS contacted for additional assistance #[phone] Reilly. Patient reports that hse has NO/ZERO [...] time. Patient reports she will go to [place] today.Reviewed with pt to contact PCP office [...] call regarding prior message. Contact pt at [phone] * Telephone Encounter - Apple Manzano LPN - 10/23/2024 12:09 PM EDT Triage call placed to listed number. No voice mail on listed number. Called with BLS # [phone] Dionte x2. Patient then called directly without power and recovery supervisor and no answer at this time. Again [...] Upcoming Encounters Date Type Department Care Team ([facility] st Contact Info) Description 11/16/2024 11:15 AM EDT Telemedicine [facility] & PEDS [address] [place] [address] Gordon Velez MD [address] [place] [address] documented as of this encounter Visit Diagnoses Not on filedocumented in this encounter Additional Health Concerns Assessment Noted Time PHQ-9 Depression Total Score: 5 10/17/19 25 10:16 AM EDT documented as of this encounter Care Teams Core Blower Operator Relationship Specialty Start Date End Date FamGordon Salas MD [address] [place] [address] NATHAN Cortez [address] PCP - General Internal Medicine 11/30/19 documented as of this encounter
--- OUTSIDE RECORDS SUMMARY | 2024-10-28 12:11 | XMS_ITS | Encounter Summary ---
Author Organization [employer] Address 75 [facility] 7t [place] [address] Care Team Providers Care Casting Wheel Operator Name Role Phone Gordon Velez MD Primary Care Prov ider Reason for Visit * Reason Onset Date Comments Med Refill 06/28/2023 Encounter Details Date Type Department Care Team ([facility] st Contact Info) Description 06/28/2023 Telephone [facility] PEDS [address] [place] [address] Gordon Velez MD [address] [place] [address] Med Refill Social History Tobacco Use Types [...] Medication is currently inactive Please sent to [facility] [place], [place] - [address] [facility] documented in this encounter Plan of Treatment Upcoming Encounters Date Type Department Care Team (Late st Contact Info) Description 11/16/2024 11:15 AM EDT Telemedicine [facility]S [address] [place] [address] Gordon Velez MD [address] [place] [address] documented as of this encounter Visit Diagnoses Not on filedocumented in this encounter Care Teams Casting Wheel Operator Relationship Specialty Start Date End Date Gordon Velez MD [address] [place] [address] PCP - General Internal Medicine 11/30/19 documented as of this encounter
--- OUTSIDE RECORDS SUMMARY | 2024-10-28 12:11 | XMS_ITS | Encounter Summary ---
Author Organization [employer] [facility] Address 75 [facility] 7t [place] [address] Care Team Providers Care Browning Processor Name Role Phone Gordon Velez MD Primary Care Prov ider Encounter Details Date Type Department Care Team (Late st Contact Info) Description 11/21/2022 Orders Only [facility] [address] [place], [place] [phone] Gordon Velez MD [address] [place], [place] [phone] Social History Tobacco Use Types Packs/Day Years [...] Info) Description 11/16/2024 11:15 AM EDT Telemedicine [facility] MED & PEDS [address] [place], [place] [phone] Gordon Velez MD [address] [place], [place] [phone] documented as of this encounter Visit Diagnoses Not on filedocumented in this encounter Care Teams Browning Processor Relationship Specialty Start Date End Date Gordon Velez MD [address] [place] [address] PCP - General Internal Medicine 11/30/19 documented as of this encounter
--- OUTSIDE RECORDS SUMMARY | 2024-10-28 12:11 | XMS_ITS | Encounter Summary ---
Author Organization [employer] Address [address] [facility] 7t [place] [address] Care Team Providers Care Centrifugal Spinner Name Role Phone Gordon Velez MD Primary Care Prov ider Reason for Visit * Reason Onset Date Comments Appointment Request 07/10/2023 Encounter Details Date Type Department Care Team ([facility] st Contact Info) Description 07/10/2023 Telephone [facility] MEDICINE [address] [place] [address] Gordon Velez MD [address] [place], [place] [phone] Appointment Request Social History Tobacco Use Types [...] AM EDT Telemedicine [facility] MED & PEDS [address] [place] [address] Gordon Velez MD [address] [place] [address] documented as of this encounter Visit Diagnoses Not on filedocumented in this encounter Care Teams Centrifugal Spinner Relationship Specialty Start Date End Date Gordon Velez MD [address] [place] [address] PCP - General Internal Medicine 11/30/19 documented as of this encounter
--- OUTSIDE RECORDS SUMMARY | 2024-10-28 12:11 | XMS_ITS | Encounter Summary ---
Author Organization [employer] Address [address] [facility] 7t [place] [address] Care Team Providers Care Channel Opener Name Role Phone Gordon Velez MD Primary Care Prov ider Reason for Visit * Reason Comments Med Refill Encounter Details Date Type Department Care Team ([facility] st Contact Info) Description 08/13/2024 Refill [facility] MED & PEDS [address] [place], [place] [phone] Gordon Velez MD [address] [place] [address] Social History Tobacco Use Types Packs/Day Years [...] Info) Description 11/16/2024 11:15 AM EDT Telemedicine [facility] MED & PEDS [address] [place] [address] Gordon Velez MD [address] [place] [address] documented as of this encounter Visit Diagnoses Not on filedocumented in this encounter Additional Health Concerns Assessment Noted Time PHQ-9 Depression Total Score: 18 024 1:56 PM EDT documented as of this encounter Care Teams Channel Opener Relationship Specialty Start Date End Date Gordon Velez MD [address] [place] [address] PCP - General Internal Medicine 11/30/19 documented as of this encounter
--- OUTSIDE RECORDS SUMMARY | 2024-10-28 12:11 | XMS_ITS | Encounter Summary ---
Author Organization [employer] [facility] Address [address] [facility] 7t [place] [address] Care Team Providers Care Ice Skating Coach Name Role Phone Gordon Velez MD Primary Care Prov ider Encounter Details Date Type Department Care Team (Late Contact Info) Description 02/11/2023 Orders Only [facility] MEDICINE [address] [place] [address] Shannan Greene LPN Social History Tobacco Use [...] Info) Description 11/16/2024 11:15 AM EDT Telemedicine [facility] MED & PEDS [address] [place], [place] [phone] Gordon Velez MD [address] [place] [address] documented as of this encounter Visit Diagnoses Not on filedocumented in this encounter Care Teams Ice Skating Coach Relationship Specialty Start Date End Date Gordon Velez MD [address] [place] [address] PCP - General Internal Medicine 11/30/19 documented as of this encounter
--- OUTSIDE RECORDS SUMMARY | 2024-10-28 12:11 | XMS_ITS | Encounter Summary ---
Author Organization [employer] Address [address] [facility] 7t [place] [address] Care Team Providers Care Grinder Dresser Name Role Phone Gordon Velez MD Primary Care Prov ider Reason for Visit * Reason Onset Date Comments Med Refill 06/02/2024 Encounter Details Date Type Department Care Team (Late st Contact Info) Description 06/02/2024 Telephone [facility] MEDICINE [address] [place] [address] Gordon Velez MD [address] [place], [place] [phone] Med Refill Social History Tobacco Use Types [...] 50 MG tablet To be sent to: [facility] - [place], [place] - [address] [place] [address] documented in this encounter Plan of Treatment Upcoming Encounters Date Type Department Care Team (Late st Contact Info) Description 11/16/2024 11:15 AM EDT Telemedicine [facility] CH[facility] MED & PEDS [address] [place] [address] Gordon Velez MD [address] [place] [address] documented as of this encounter Visit Diagnoses Not on filedocumented in this encounter Additional Health Concerns Assessment Noted Time PHQ-9 Depression Total Score: 18 024 1:56 PM EDT documented as of this encounter Care Teams Grinder Dresser Relationship Specialty Start Date End Date Gordon Velez MD [address] [place] [address] PCP - General Internal Medicine 11/30/19 documented as of this encounter
--- OUTSIDE RECORDS SUMMARY | 2024-10-28 12:11 | XMS_ITS | Encounter Summary ---
Author Organization [employer] Address [address] [facility] 7t [place] [address] Care Team Providers Care Scheduler Maintenance Name Role Phone Gordon Velez MD Primary Care Prov ider Reason for Visit * Reason Comments Med Refill Encounter Details Date Type Department Care Team ([facility] st Contact Info) Description 10/28/2024 Refill [facility] CH[facility] MED & PEDS [address] [place], [place] [phone] Erica Anaya MD [address] [place] [address] Chronic right shoulder pain Social History Tobacco Use Types Packs/Day Years [...] Telephone Encounter - Paige Harris RN - 10/28/2024 11:50 AM EDT Would you like pt to be on INTELLECTUAL PROPERTY LEGAL ASSISTANT or is this temporary? documented in this encounter Plan of Treatment Upcoming Encounters Date Type Department Care Team (Late st Contact Info) Description 11/16/2024 11:15 AM EDT Telemedicine [facility] MED & PEDS [address] [place] [address] Gordon Velez MD [address] [place] [address] documented as of this encounter Visit Diagnoses Diagnosis Chronic right shoulder pain Pain in joint, shoulder region documented in this encounter Additional Health Concerns Assessment Noted Time PHQ-9 Depression Total Score: 5 10/17/19 25 10:16 AM EDT documented as of this encounter Care Teams Scheduler Maintenance Relationship Specialty Start Date End Date Gordon Velez MD [address] [place] [address] PCP - General Internal Medicine 11/30/19 documented as of this encounter
--- OUTSIDE RECORDS SUMMARY | 2024-10-28 12:12 | XMS_ITS | Encounter Summary ---
Author Organization [employer] [facility] Address [address] [facility] 7 [place] [address] Care Team Providers Care Plastic Sewer Name Role Phone Gordon Velez MD Primary Care Prov ider Encounter Details Date Type Department Care Team (Late st Contact Info) Description 07/10/2022 Orders Only [facility] MED & PEDS [address] [place] [address] Katey Campos LPN Social History Tobacco Use [...] Description 11/16/2024 11:15 AM EDT Telemedicine [facility] MED & PEDS [address] [place] [address] Gordon Velez MD 505 [place] [address] documented as of this encounter Procedures Procedure [...] AM EDT) Thyroglobulin Antibody <1 <=1 IU/mL [facility] Comment:This Thyroglobulin a ntibody test was performedusing the Agustín Timbo Chemiluminescent method.Values obtained from different assay methods cannot beused interchangeably. Thyroglobulin antibody levels,regardless of value, should not be interpreted asabsolute evidence of the presence or absence ofdisease. Thyroglobulin, LC/MS/MS TNP [facility] Thyroglobulin Level 0.5(A) ng/mL [facility] Comment:Reference Range: Ath yrotic: <0.1 ng/mLReference range applies to differentiated thyroidcancer patients following treatment. The presence ofmeasurable thyroglobulin indicates the presence ofthyroglobulin-producing thyroid tissue. Clinicalcorrelation is advised.This Thyroglobulin test was performed using theMiz[employer] Timbo Chemiluminescent method. Valuesobtained from different assay methods cannot beused interchangeably. Thyroglobulin levels, regardlessof value, should not be interpreted as absoluteevidence of the presence or absence of disease.THIS TEST WAS PERFORMED AT:[facility] [id number] [place] [address]EQPXKFS W. MASON,MD,PHD 11/13/2022 11:2 9 AM EDT 11/13/2022 11:29 AM EDT [facility] External Provider LAB BLO OD ORDERABLES Final Result Performing Organization Address [facility] Co de Phone Number [facility] [address] [place] [phone] * (ABNORMAL) TSH (11/13/2022 11:29 AM EDT) Pathologist [facility] Thyroid Stimulating Hormone 24.45(H) 0.32 - 4.0 uIU/mL [facility] Comment:Note: A sustained TS H level above 2.5 uIU/mL may warrant further investigation. TSH 3rd Generation ([facility]) 11/13/2022 11:2 9 AM EDT 11/13/2022 11:29 AM EDT [facility] External Provider LAB BLO OD ORDERABLES Final Result Performing Organization Address [facility] Co de Phone Number [facility] [address] [place] [phone] * (ABNORMAL) T4, Free (11/13/2022 11:29 AM EDT) Free T4 (Free Thyroxine) <0.42(L) 0.71 - 1.85 ng/dL [facility] 11/13/2022 11:2 9 AM EDT 11/13/2022 11:29 AM EDT [facility] External Provider LAB BLO OD ORDERABLES Final Result Performing Organization Address [facility]/ZIP Co de Phone Number [facility] [address] [place] [address] [phone] * (ABNORMAL) Thyroblobulin, Tumor Marker w/Reflex (11/08/2022 1:14 PM EDT) Thyroglobulin Antibody <1 <=1 IU/mL [facility] Comment:This Thyroglobulin a ntibody test was performedusing the Sophono Chemiluminescent method.Values obtained from different assay methods cannot beused interchangeably. Thyroglobulin antibody levels,regardless of value, should not be interpreted asabsolute evidence of the presence or absence ofdisease. Thyroglobulin, LC/MS/MS TNP [facility] Thyroglobulin Level 0.3(A) ng/mL [facility] Comment:Reference Range: Ath yrotic: <0.1 ng/mLReference range applies to differentiated thyroidcancer patients following treatment. The presence ofmeasurable thyroglobulin indicates the presence ofthyroglobulin-producing thyroid tissue. Clinicalcorrelation is advised.This Thyroglobulin test was performed using theSophono Chemiluminescent method. Valuesobtained from different assay methods cannot beused interchangeably. Thyroglobulin levels, regardlessof value, should not be interpreted as absoluteevidence of the presence or absence of disease.THIS TEST WAS PERFORMED AT:[facility] [id number] [place] [address]FMQNBTHEDVIN REID MD,PHD 11/08/2022 1:14 PM EDT 11/08/2022 1:14 PM EDT [facility] External Provider LAB BLO OD ORDERABLES Final Result [facility] [address] [place] [address] [phone] * (ABNORMAL) TSH (11/08/2022 1:14 PM EDT) Thyroid Stimulating Hormone 8.44(H) 0.32 - 4.0 uIU/mL [facility] Comment:Note: A sustained TS H level above 2.5 uIU/mL may warrant further investigation. TSH 3rd Generation ([facility]) 11/08/2022 1:14 PM EDT 11/08/2022 1:14 PM EDT [facility] External Provider LAB BLO OD ORDERABLES Final Result Performing Organization Address [facility]/ZIP Co de Phone Number [facility] [address] [place] [phone] [phone] * (ABNORMAL) T4, Free (11/08/2022 1:14 PM EDT) Free T4 (Free Thyroxine) <0.42(L) 0.71 - 1.85 ng/dL [facility] 11/08/2022 1:14 PM EDT 11/08/2022 1:14 PM EDT [facility] External Provider LAB BLO OD ORDERABLES Final Result Performing Organization Address [facility]/ZIP Co de Phone Number [facility] [address] [place] [address] [phone] * (ABNORMAL) Sed Rate by Modified Gabyren (10/22/2022 10:13 AM EDT) Erythrocyte Sedimentation Rate 26(H) 0 - 20 MM/HR [facility] Comment:Patients with polycy themia and many hemoglobin abnormalitiesmay have depressed sed rates whereas patients with anemiamay have elevated sed rates. 10/22/2022 10:1 3 AM EDT 10/22/2022 10:13 AM EDT [facility] External Provider LAB BLO OD ORDERABLES Final Result Performing Organization Address [facility] Co de Phone Number [facility] [address] [place] [phone] * (ABNORMAL) C-reactive Protein (10/22/2022 10:13 AM EDT) C Reactive Protein 1.98(H) < or = 0.50 mg/dL [facility] 10/22/2022 10:1 3 AM EDT 10/22/2022 10:13 AM EDT [facility] External Provider LAB BLO OD ORDERABLES Final Result Performing Organization Address [facility] Co de Phone Number [facility] [address] [place] [phone] * ALT (10/22/2022 10:13 AM EDT) Alanine Aminotransferase 18 0 - 31 U/L [facility] 10/22/2022 10:1 3 AM EDT 10/22/2022 10:13 AM EDT [facility] External Provider LAB BLO OD ORDERABLES Final Result Performing Organization Address [facility] Co de Phone Number [facility] [address] [place] [phone] * AST (10/22/2022 10:13 AM EDT) Aspartate Amino Transferase 20 5 - 31 U/L [facility] 10/22/2022 10:1 3 AM EDT 10/22/2022 10:13 AM EDT [facility] External Provider LAB BLO OD ORDERABLES Final Result Performing Organization Address [facility] Co de Phone Number [facility] [address] [place] [address] [phone] * Creatinine, Serum (10/22/2022 10:13 AM EDT) Creatinine, Serum 0.76 0.5 - 1.4 mg/dL [facility] Estimated Glomerular Filt Rate >60 [facility] Comment:NOTE: For -Am erican individuals, multiply the result by 1.210.Chronic Kidney Disease: Estimated GFR < 60 mL/min/1.64r0Srcycn Kidney Disease: Estimated GFR < 15 mL/min/1.73m2 10/22/2022 10:1 3 AM EDT 10/22/2022 10:13 AM EDT [facility] External Provider LAB BLO OD ORDERABLES Final Result [facility] [address] [place] [phone] [phone] * Tramadol, urine (10/22/2022 10:12 AM EDT) Tramadol, Ur >[address] [facility] Comment: Report Name ? Results Units Reference Range SiteDRUG MONITOR, TRAMADOL, QN, URINE ?[id number]: ? >96240 (H)ng/mL ? <100Tramadol: ?>79607 (H)ng/mL ? <100Tramadol Comments: ? See Tramadol Notes, LDT NotesDRUG MONITORING TEMPLATE ? [id number] and Comments:This drug testing is for medical treatment only.Analysis was performed as non-forensic testing andthese results should be used only by healthcareproviders to render diagnosis or treatment, or tomonitor progress of medical conditions.Tramadol Notes:Tramadol, Desmethyltramadol detected is consistent withthe use of the drug Tramadol.LDT Notes:Confirmation tests were developed and their analyticalperformance characteristics have been determined by[facility]. It has not been cleared or approvedby the FDA. This assay has been validated pursuant tothe CLIA regulations and is used for clinical purposes.Healthcare Providers needing Interpretation assistance,please contact us at [phone] ( )M- F, 8am to 10pm ESTSite InformationNL1:[facility] [id number] [place] [address] Laboratory Director: Shekhar Pierre M.D. Desmethyltramadol, Ur >[address] [facility] 10/22/2022 10:1 2 AM EDT 10/22/2022 10:38 AM EDT [facility] External Provider LAB URI NE ORDERABLES Final Result [facility] [address] [place] [phone] * (ABNORMAL) Drug Monitoring, Panel 1, Screen, Urine (10/22/2022 10:12 AM EDT) Opiate Screen Urine Not Detected Not Detect [facility] Comment:Opiate cut-off is 30 0 ng/mL.Positive results are unconfirmed and should not be used fornon-medical purposes. Barbiturates, Urine Not Detected Not Detect [facility] Comment:Barbiturate cut-off is 200 ng/mL.Positive results are unconfirmed and should not be used fornon-medical purposes. Phencyclidine Screen Urine Not Detected Not Detect [facility] Comment:Phencyclidine cut-of f is 25 ng/mL.Positive results are unconfirmed and should not be used fornon-medical purposes. Amphetamine Screen Urine Not Detected Not Detect [facility] Comment:Amphetamine cut-off is 1000 ng/mL.Positive results are unconfirmed and should not be used fornon-medical purposes. Benzodiazepines Screen Urine POSITIVE(A) Not Detect [facility] Comment:Benzodiazepine cut-o ff is 200 ng/mL.Positive results are unconfirmed and should not be used fornon-medical purposes. Cocaine Screen Urine Not Detected Not Detect [facility] Comment:Cocaine cut-off is 3 00 ng/mL.Positive results are unconfirmed and should not be used fornon-medical purposes. Cannabinoid Screen Urine POSITIVE(A) Not Detect [facility] Comment:Cannabinoid cut-off is 50 ng/mL.Positive results are unconfirmed and should not be used fornon-medical purposes. FENTANYL URINE POSITIVE(A) Not Detect [facility] Comment:Fentanyl cut-off is 1 ng/mL.Positive results are unconfirmed and should not be used fornon-medical purposes. 10/22/2022 10:1 2 AM EDT 10/22/2022 10:34 AM EDT [facility] External Provider LAB URI NE ORDERABLES Final Result [facility] [address] [place] [phone] * (ABNORMAL) Comprehensive Metabolic Panel (09/27/2022 2:11 PM EST) Sodium 141 135 - 145 mmol/L [facility] Potassium 4.3 3.3 - 5.1 mmol/L [facility] Chloride 104 96 - 108 mmol/L [facility] Carbon Dioxide 30(H) 22 - 29 mmol/L [facility] Anion Gap 11(L) 12 - 20 [facility] Urea Nitrogen (BUN) 13 9 - 16 mg/dL [facility] Creatinine, Serum 0.73 0.5 - 1.4 mg/dL [facility] Creatinine Clr Calc Pharmacy 73.6 [facility] Comment:Provided height and weight: 157.48 cm,70.76 kg.eGFR (calculated from the MDRD study equation) and eCrCl(calculated from the Cockcroft-Gault equation) are based ondifferent parameters and may not yield comparable results.If eCrCl result is absurd, please check patient'sheight/weight. Estimated Glomerular Filt Rate >60 [facility] Comment:NOTE: For -Am erican individuals, multiply the result by 1.210.Chronic Kidney Disease: Estimated GFR < 60 mL/min/1.28o4Nmmunh Kidney Disease: Estimated GFR < 15 mL/min/1.73m2 Glucose 90 60 - 115 mg/dL [facility] Calcium 8.8 8.4 - 10.2 mg/dL [facility] Bilirubin, Total 0.4 0.0 - 1.0 mg/dL [facility] Aspartate Amino Transferase 25 5 - 31 U/L [facility] Alanine Aminotransferase 20 0 - 31 U/L [facility] Total Protein 6.7 6.5 - 8.0 g/dL [facility] Albumin Level 4.1 3.5 - 5.0 g/dL [facility] Alkaline Phosphatase 71 39 - 117 U/L [facility] 09/27/2022 2:11 PM EST 09/27/2022 2:14 PM EST us [facility] External Provider LAB BLO OD ORDERABLES Final Result [facility] [address] [place] [phone] [phone] * (ABNORMAL) CBC auto differential (09/27/2022 2:11 PM EST) White Blood Count 7.5 4.8 - 10.8 X10*3/uL [facility] Red Blood Count 4.42 4.20 - 5.50 X10*6/uL [facility] Hemoglobin 12.4 12.0 - 16.0 g/dl [facility] Hematocrit 36.9(L) 37.0 - 47.0 % [facility] Mean Corpuscular Volume 83.5 80.0 - 98.0 fL [facility] Mean Corpuscular Hemoglobin 28.1 27.0 - 33.0 pg [facility] Mean Corpuscular HGB Conc 33.6 31.0 - 35.0 g/dl [facility] Red Cell Distribution Width 12.5 11.0 - 16.0 % [facility] Platelet Count 139(L) 160 - 400 X10*3/uL [facility] Mean Platelet Volume 12.0 9.4 - 12.3 fL [facility] Neutrophils Percent Auto 54.6 45 - 73 % [facility] Imm Gran Pct Auto 0.4 0.0 - 0.4 % [facility] Lymphocytes Percent Auto 28.7 20 - 40 % [facility] Monocytes Percent Auto 8.3 2 - 11 % [facility] Eosinophils Percent Auto 7.3(H) 0 - 4 % [facility] Basophils Percent Auto 0.7 0 - 2 % [facility] NRBC Pct Auto 0.0 0.0 - 0.2 /100WBC [facility] Neutrophils Absolute Auto 4.1 2.0 - 8.3 x10*3/uL [facility] Imm Gran Abs Auto 0.03 0.00 - 0.03 X10*3/uL [facility] Lymphocytes Absolute Auto 2.2 1.2 - 4.9 X10*3/uL [facility] Monocytes Absolute Auto 0.6 0.1 - 1.2 X10*3/uL [facility] Eosinophils Absolute Auto 0.6(H) 0.0 - 0.4 X10*3/uL [facility] Basophils Absolute Auto 0.1 0.0 - 0.2 X10*3/uL [facility] NRBC Abs Auto 0.000 0.0 - 0.012 X10*3/uL [facility] 09/27/2022 2:11 PM EST 09/27/2022 2:14 PM EST us [facility] External Provider LAB BLO OD ORDERABLES Final Result [facility] [address] [place] [phone] [phone] documented in this encounter Visit Diagnoses Not on filedocumented in this encounter Care Teams Plastic Sewer Relationship Specialty Start Date End Date Gordon Velez MD [address] [place] [phone] PCP - General Internal Medicine 11/30/19 documented as of this encounter
--- OUTSIDE RECORDS SUMMARY | 2024-10-28 12:12 | XMS_ITS | Encounter Summary ---
Author Organization [employer] Address [address] [facility] [address] [place] [address] Care Team Providers Care Parking Lot Laborer Name Role Phone Gordon Velez MD Primary Care Prov ider Encounter Details Date Type Department Care Team (Late st Contact Info) Description 11/08/2023 Orders Only [facility] MEDICINE [address] [place] [address] Provider, MD Marito Social History Tobacco Use [...] Upcoming Encounters Date Type Department Care Team ([facility] st Contact Info) Description 11/16/2024 11:15 AM EDT Telemedicine [facility] MED & PEDS [address] [place] [address] Gordon Velez MD [address] [place] [address] documented as of this encounter Procedures Procedure Name Priority Date/Time Associated Diagnosis Comments HM COLONOSCOPY Routine 11/24/2015 12:21 PM EDT documented in this encounter Results * Hm Colonoscopy (11/24/2015 12:21 PM EDT) Historical Provider HEALTH MAINTENANCE Final Result documented in this encounter Visit Diagnoses Not on filedocumented in this encounter Care Teams Parking Lot Laborer Relationship Specialty Start Date End Date Gordon Velez MD [address] [place] [address] PCP - General Internal Medicine 11/30/19 documented as of this encounter
--- OUTSIDE RECORDS SUMMARY | 2024-10-28 12:12 | XMS_ITS | Encounter Summary ---
Author Organization [employer] Address [address] [facility] 7t [place] [address] Care Team Providers Care Casing Mixer Name Role Phone Gordon Velez MD Primary Care Prov ider Reason for Visit * Reason Onset Date Comments Referral 09/24/2023 Encounter Details Date Type Department Care Team (Late st Contact Info) Description 09/24/2023 Telephone [facility] MEDICINE [address] [place] [address] Gordon Velez MD [address] [place], [place] [phone] Referral Social History Tobacco Use Types Packs/Day [...] the past 12 months, has t he [employer], gas, oil or water company threatened to [...] was referred last month to GI at [facility]. Pt will be contacted when appts become available from their office. * Telephone Encounter - Macario Segura - 09/24/2023 12:52 PM EST TC from pt requesting new referral : DATE: N/A TIME:N/A Address: [address] [place] [address] Dr [address] Floor, [place] [address] Visits: N/A Facility Name: [facility] Type of Specialist: Gastroenterologists Phone # : [phone] Pt is requesting referral for a colonoscopy stated no concerns. If any questions you can contact pt at [phone] documented in this encounter Plan of Treatment Upcoming Encounters Date Type Department Care Team (Late st Contact Info) Description 11/16/2024 11:15 AM EDT Telemedicine [facility] CHC MED & PEDS [address] [place] [address] Gordon Velez MD [address] [place] [address] documented as of this encounter Visit Diagnoses Not on filedocumented in this encounter Care Teams Casing Mixer Relationship Specialty Start Date End Date Gordon Velez MD [address] [place] [address] PCP - General Internal Medicine 11/30/19 documented as of this encounter
--- OUTSIDE RECORDS SUMMARY | 2024-10-28 12:12 | XMS_ITS | Clinical Summary ---
Author Organization [facility] Address [address] [place] [address] Care Team Providers Care Otr Refrigerated Cdl Truck Driver Name Role Phone Verna Michael Mcclain Primary Care Provider + [phone] Allergies No known active allergies Medications traMADoL [...] patient's age to complete this topic Insurance [facility] [place] [id number] Care Teams Otr Refrigerated Cdl Truck Driver Relationship Specialty Start Date End Date Michael Gillespie [address] [place] [phone] PCP - General Internal Medicine 11/24/20
--- OUTSIDE RECORDS SUMMARY | 2024-10-28 12:12 | XMS_ITS | Encounter Summary ---
Author Organization [employer] Address [address] [facility] 7 [place] [address] Care Team Providers Care Calender Tender Name Role Phone Gordon Velez MD Primary Care Prov ider Reason for Visit * Reason Onset Date Comments Referral 09/10/2023 Encounter Details Date Type Department Care Team ([facility] st Contact Info) Description 09/10/2023 Telephone [facility] CHC MED & PEDS [address] [place] [address] Gordon Velez MD [address] [place] [address] Referral Social History Tobacco Use Types Packs/Day [...] Pt states Mammo can be sent to [facility] women[facility]. Ordersent as requested. Pt then stated needing a referral to [facility] eye care for routine DM eye [...] requesting for eye referral flavia sent to [facility]. States she is not able to make an appointment due to office not having a referral. documented in this encounter Plan of Treatment Upcoming Encounters Date Type Department Care Team (Late st Contact Info) Description 11/16/2024 11:15 AM EDT Telemedicine [facility] CHC MED & PEDS [address] [place] [address] Gordon Velez MD [address] [place] [address] documented as of this encounter Visit Diagnoses Diagnosis Type 2 diabetes mellitus without complication, without long-term current use of insulin ([facility]) documented in this encounter Care Teams Calender Tender Relationship Specialty Start Date End Date Gordon Velez MD [address] [place] [phone] PCP - General Internal Medicine 11/30/19 documented as of this encounter
--- OUTSIDE RECORDS SUMMARY | 2024-10-28 12:12 | XMS_ITS | Encounter Summary ---
Author Organization [employer] Address [address] [facility] 7t [place] [address] Care Team Providers Care Track Laying Supervisor Name Role Phone Gordon Velez MD Primary Care Prov ider Reason for Visit * Reason Onset Date Comments Medication Question 07/31/2024 Encounter Details Date Type Department Care Team ([facility] st Contact Info) Description 07/31/2024 Telephone [facility] MEDICINE [address] [place] [address] Gordon Velez MD [address] [place], [place] [phone] Medication Question Social History Tobacco Use Types [...] Description 11/16/2024 11:15 AM EDT Telemedicine [facility] MED & PEDS [address] [place], [place] [phone] Gordon Velez MD [address] [place] [address] documented as of this encounter Visit Diagnoses Not on filedocumented in this encounter Additional Health Concerns Assessment Noted Time PHQ-9 Depression Total Score: 18 024 1:56 PM EDT documented as of this encounter Care Teams Track Laying Supervisor Relationship Specialty Start Date End Date Gordon Velez MD [address] [place] [phone] PCP - General Internal Medicine 11/30/19 documented as of this encounter
--- OUTSIDE RECORDS SUMMARY | 2024-10-28 12:12 | XMS_ITS | Encounter Summary ---
Author Organization [employer] Address [address] [facility] 7t [place] [address] Care Team Providers Care Special Library Librarian Name Role Phone Gordon Velez MD Primary Care Prov ider Reason for Visit * Reason Comments Med Refill Encounter Details Date Type Department Care Team (Late st Contact Info) Description 01/31/[address] [facility] MEDICINE [address] [place] [address] Gordon Velez MD [address] [place], [place] [phone] Severe persistent asthma without complication Social History [...] the past 12 months, has t he [employer], [employer], oil or water company threatened to shut [...] 11/16/2024 11:15 AM EDT Telemedicine [facility] MED & PEDS [address] [place] [address] Gordon Velez MD [address] [place] [address] documented as of this encounter Visit Diagnoses Diagnosis Severe persistent asthma without complication documented in this encounter Care Teams Special Library Librarian Relationship Specialty Start Date End Date Gordon Velez MD [address] [place] [address] PCP - General Internal Medicine 11/30/19 documented as of this encounter
--- OUTSIDE RECORDS SUMMARY | 2024-10-28 12:12 | XMS_ITS | Encounter Summary ---
Author Organization [employer] Address [address] [facility] 7t [place] [address] Care Team Providers Care Party Chief Name Role Phone Gordon Velez MD Primary Care Prov ider Encounter Details Date Type Department Care Team ([facility] st Contact Info) Description 05/13/2024 Orders Only [facility] CHC MED & PEDS [address] [place], [place] [phone] Gordon Velez MD [address] [place] [address] Social History Tobacco Use Types Packs/Day Years [...] Upcoming Encounters Date Type Department Care Team ([facility] st Contact Info) Description 11/16/2024 11:15 AM EDT Telemedicine [facility] CHC MED & PEDS [address] [place] [address] FamGordon Salas MD [address] [place] [address] documented as of this encounter Procedures Procedure Name Priority Date/Time Associated Diagnosis Comments TSH Routine 05/13/2024 2:24 PM EDT T4, FREE Routine 05/13/2024 2:24 PM EDT documented in this encounter Results * T4, Free (05/13/2024 2:24 PM EDT) Free T4 (Free Thyroxine) 0.98 0.71 - 1.85 ng/dL [facility] 05/13/2024 2:24 PM EDT 05/13/2024 5:31 PM EDT us Generic External Data Provider LAB BLOOD ORDERAB LES Final Result [facility] [address] [place] [address] [phone] * (ABNORMAL) TSH (05/13/2024 2:24 PM EDT) Thyroid Stimulating Hormone 0.20(L) 0.32 - 4.0 uIU/mL [facility] Comment:TSH 3rd Generation ( [facility]) 05/13/2024 2:24 PM EDT 05/13/2024 5:31 PM EDT us Generic External Data Provider LAB BLOOD ORDERAB LES Final Result [facility] [address] [place] [address] [phone] documented in this encounter Visit Diagnoses Not on filedocumented in this encounter Additional Health Concerns Assessment Noted Time PHQ-9 Depression Total Score: 18 024 1:56 PM EDT documented as of this encounter Care Teams Party Chief Relationship Specialty Start Date End Date Gordon Velez MD [address] [place] [address] PCP - General Internal Medicine 11/30/19 documented as of this encounter
--- OUTSIDE RECORDS SUMMARY | 2024-10-28 12:12 | XMS_ITS | Encounter Summary ---
Author Organization [employer] Address [address] [facility] 7t [place] [address] Care Team Providers Care Qa Analyst Name Role Phone Gordon Velez MD Primary Care Prov ider Encounter Details Date Type Department Care Team ([facility] st Contact Info) Description 08/21/2023 Orders Only [facility] CHC MED & PEDS [address] [place], [place] [phone] Gordon Velez MD [address] [place] [address] Social History Tobacco Use Types Packs/Day Years [...] Description 11/16/2024 11:15 AM EDT Telemedicine [facility] MED & PEDS [address] [place] [address] Gordon Velez MD [address] [place] [address] documented as of this encounter Visit Diagnoses Not on filedocumented in this encounter Care Teams Qa Analyst Relationship Specialty Start Date End Date Gordon Velez MD [address] [place] [address] PCP - General Internal Medicine 11/30/19 documented as of this encounter
--- OUTSIDE RECORDS SUMMARY | 2024-10-28 12:12 | XMS_ITS | Encounter Summary ---
Author Organization [employer] Address [address] [facility] 7t [place] [address] Care Team Providers Care Tile Conduit Layer Name Role Phone Gordon Velez MD Primary Care Prov ider Reason for Visit * Reason Onset Date Comments Appointment Request 09/16/2023 Encounter Details Date Type Department Care Team ([facility] st Contact Info) Description 09/16/2023 Telephone [facility] MEDICINE [address] [place] [address] Gordon Velez MD [address] [place], [place] [phone] Appointment Request Social History Tobacco Use Types [...] mammogram. Please contact pt if any questions: [phone] documented in this encounter Plan of Treatment Upcoming Encounters Date Type Department Care Team (Late st Contact Info) Description 11/16/2024 11:15 AM EDT Telemedicine [facility] MED & PEDS [address] [place] [address] Gordon Velez MD [address] [place] [address] documented as of this encounter Visit Diagnoses Not on filedocumented in this encounter Care Teams Tile Conduit Layer Relationship Specialty Start Date End Date Gordon Velez MD [address] [place] [address] PCP - General Internal Medicine 11/30/19 documented as of this encounter
--- OUTSIDE RECORDS SUMMARY | 2024-10-28 12:12 | XMS_ITS | Encounter Summary ---
Author Organization [facility] Address [address] [facility] 7t [place] [address] Care Team Providers Care Rounder And Backer Name Role Phone Gordon Velez MD Primary Care Prov ider Encounter Details Date Type Department Care Team ([facility] Contact Info) Description 07/18/2022 Telephone [facility] CHC MED & PEDS [address] [place], [place] [phone] Gordon Velez MD [address] [place], [place] [phone] Social History Tobacco Use Types Packs/Day Years [facility] [address] [place], [place] [phone] Gordon Velez MD [address] [place] [address] documented as of this encounter Visit Diagnoses Not on filedocumented in this encounter Care Teams Rounder And Backer Relationship Specialty Start Date End Date Gordon Velez MD [address] [place] [address] PCP - General Internal Medicine 11/30/19 documented as of this encounter
--- OUTSIDE RECORDS SUMMARY | 2024-10-28 12:12 | XMS_ITS | Encounter Summary ---
Author Organization [employer] Address 75 [facility] 7t [place] [address] Care Team Providers Care Portfolio Manager Name Role Phone Gordon Velez MD Primary Care Prov ider Reason for Visit * Reason Comments Med Refill Encounter Details Date Type Department Care Team ([facility] st Contact Info) Description 07/30/2024 Refill [facility] CHC MED & PEDS [address] [place], [place] [phone] Gordon Velez MD [address] [place] [address] Chronic midline low back pain without sciatica [...] to pt regarding message below. Called via [employer] ID# [id number]. F/u with PCP Re: pain scheduled for 08/07/24 @10:30am. * Telephone Encounter - AUDI Woodard - 07/31/2024 5:18 PM EST Last med refill on 07/07/24 following televisit for hip pain. Does not appear to be on FORMSTONE FITTER. Will defer refill until PCP returns. She should be seen for an appt if pain is worsening. Thank you! documented in this encounter Plan of Treatment Upcoming Encounters Date Type Department Care Team (Late st Contact Info) Description 11/16/2024 11:15 AM EDT Telemedicine [facility] MED & PEDS [address] [place] [address] Gordon Velez MD [address] [place] [address] documented as of this encounter Visit Diagnoses Diagnosis Chronic midline low back pain without sciatica documented in this encounter Additional Health Concerns Assessment Noted Time PHQ-9 Depression Total Score: 18 024 1:56 PM EDT documented as of this encounter Care Teams Portfolio Manager Relationship Specialty Start Date End Date Gordon Velez MD [address] [place] [address] PCP - General Internal Medicine 11/30/19 documented as of this encounter
--- OUTSIDE RECORDS SUMMARY | 2024-10-28 12:12 | XMS_ITS | Referral Summary ---
Author Organization [facility] Address [address] [place] [address] Care Team Providers Care Air And Water Filler Name Role Phone Verna Michael Mcclain Primary Care Provider + [phone] Allergies No known active allergies Medications traMADoL [...] Plan of Treatment Not on file Insurance [facility] [place] [id number] Care Teams Air And Water Filler Relationship Specialty Start Date End Date Michael Gillespie [address] [place] [address] PCP - General Internal Medicine 11/24/20
--- OUTSIDE RECORDS SUMMARY | 2024-10-28 12:12 | XMS_ITS | Encounter Summary ---
Author Organization [employer] Address [address] [facility] 7t [place] [address] Care Team Providers Care Underwater Hunter Trapper Name Role Phone Gordon Velez MD Primary Care Prov ider Reason for Visit * Reason Onset Date Comments New Med Request 01/24/2024 Encounter Details Date Type Department Care Team (Late st Contact Info) Description 01/24/2024 Telephone [facility] MEDICINE [address] [place] [address] Gordon Velez MD [address] [place], [place] [phone] New Med Request Social History Tobacco Use [...] Info) Description 11/16/2024 11:15 AM EDT Telemedicine [facility] CHC MED & PEDS [address] [place] [address] Gordon Velez MD [address] [place] [address] documented as of this encounter Visit Diagnoses Not on filedocumented in this encounter Care Teams Underwater Hunter Trapper Relationship Specialty Start Date End Date Gordon Velez MD [address] [place] [address] PCP - General Internal Medicine 11/30/19 documented as of this encounter
== END 2024-10-27 10:39 | disposition home or self-care (01) ==
LOC: HO.HOSX 10:38
PROVIDERS: Visit Provider Physician Assistant
DX: M25.559 Pain in unspecified hip (principal); M54.9 Dorsalgia, unspecified; G89.29 Other chronic pain; M79.7 Fibromyalgia
CPT/HCPCS: 72170; 99212

== ENCOUNTER 2024-10-27 10:57 | Outpatient (AMB) | payer MEDICAID, SELFPAY ==
--- NOTE | 2024-10-27 11:06 | MHC.OFFVIS ---
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 Patient reports ongoing pain for many years. She states that her pain is more towards her lower back aspect. Her pain is worse when she is walking, minimally when sitting and laying down. She has tried Tramadol and Percocet without relief. Patient's states she has not tried PT or cortisone in the past. He also reports history of fibromyalgia. 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 Juan Ferguson is a 64 year old female who presents today as a new patient for a evaluation of her right hip pain. Patient reports ongoing pain for many years. She states that her pain is located at her lower back. Her pain is worse when she is walking, minimally when sitting and laying down. She has tried Tramadol and Percocet without relief. Patient's states she has not tried PT or cortisone in the past. He also reports history of fibromyalgia and scoliosis. [facility] Medical History Hypotension Osteoarthritis of knees, bilateral Fibromyalgia Hyperparathyroidism Vitamin D deficiency History of thyroid cancer Postsurgical hypothyroidism H/O malignant neoplasm of skin Lumbar spondylosis Vitamin D deficiency Osteopenia Dyslipidemia Diabetic polyneuropathy associated with type 2 diabetes mellitus Post-surgical hypothyroidism Primary thyroid cancer Diabetes type 2, controlled Surgical History History of lip cancer History of biopsy History of bunionectomy Hx of cholecystectomy Hx of thyroidectomy Hx of colonoscopy History of carpal tunnel release Hx of hysterectomy Hx of mastectomy Family History Father Diabetes mellitus Mother Cancer of eye Skin cancer of nose Social History Household Members: None Housing: Apartment Are you a primary social worker palliative care to a significant other at home: No Do you presently have visiting nurse or other home services: Yes (literature teacher) Unable to assess alcohol history related to: Unable to respond Alcohol intake: never Comment: ref alarm, ambulating in room Patient Tobacco Use Status: Current everyday Tobacco user Substance Use Type: Opiates service: No Current occupational status: disabled Review of Systems Const All systems reviewed & are unremarkable except as noted in HPI and below Physical Exam Vital Signs: BMI result Body Mass Index 28.7 Const General: cooperative, healthy appearing and no acute distress Resp Effort & Inspection: normal respiratory effort and able to speak in complete sentences Cardio Rate: regular rate Peripheral pulses: Peripheral pulses 2+ throughout Skin Lesions: no lesions Rashes: no rashes Extrem Other: Right hip: Full hip ROM in all planes. No groin pain with internal external rotation. No tenderness to palpation over the greater trochanteric bursa. Significant weakness with resisted hip flexion, knee extension, abduction, and abduction. Difficulty with weakness when performing straight leg raise. NVI. Denies any bladder or bowel incontinence. Assessment & Plan Assessment & Plan (1) Chronic back pain: Code(s): M54.9 - Dorsalgia, unspecified; G89.29 - Other chronic pain Category: Medical (2) Fibromyalgia: Code(s): M79.7 - Fibromyalgia Category: Medical Plan Ms. Juan Ferguson is a 64 year old female who presents today as a new patient for a evaluation of her right hip pain. Patient reports ongoing pain for many years. She states that her pain is located at her lower back. Her pain is worse when she is walking, minimally when sitting and laying down. She has tried Tramadol and Percocet without relief. Patient's states she has not tried PT or cortisone in the past. He also reports history of fibromyalgia and scoliosis. Only office today, we discussed that the pain the patient is experiencing is likely radiation from her lower back. She will schedule follow-up appointment with Dr. Portillo for further evaluation and treatment. X-rays of the pelvis which were obtained while in the office today and were reviewed by me, Deya Nichole PA-C, revealed no acute fracture dislocation. Orders: Orders XR pelvis 1-2V Today M25.559 - Pain in unspecified hip Coding Level of Care Code New Pt Level 3 (68644) Diagnoses Chronic back pain M54.9; G89.29 Fibromyalgia M79.7
[2024-10-27 11:08] VITALS: BMI 28.7
--- OUTSIDE RECORDS SUMMARY | 2024-10-27 13:21 | XMS_ITS | Encounter Summary ---
Author Organization [email or web address] Address [address] [place] [address] Care Team Providers Care Reciprocating Drill Operator Name Role Phone Gordon Velez MD Primary Care Prov ider Reason for Visit * Reason Onset Date Comments Med Refill 06/28/2023 Encounter Details Date Type Department Care Team ([facility] st Contact Info) Description 06/28/2023 Telephone [facility] MED & PEDS [address] [place] [address] Gordon Velez MD [address] [place] [address] Med Refill Social History Tobacco Use Types Packs/Day Years Used Date Smoking Tobacco: Every Day Cigarettes Smokeless Tobacco: Never Alcohol Use Standard Drinks/Week Comments Never 0 (1 standard drink = 0.6 oz pur e alcohol) Housing Stability Answer Date Recorded What is your housing situation today? I have wandacathie ibrahim 05/14/[address] you li ve. Do you have problems with any of the following? None of the above 05/14/2023 Food Insecurity Answer Date Recorded Within the past 12 months, y ou worried that your food would run out before you got money to buy more: Never True 05/14/2023 Within the past 12 months,th e food you bought just didn't last and you didn't have enough money to get more: Never True Transportation Answer Date Recorded In the past 12 months, has l ack of transportation kept you from medical appts, meetings, work or from getting things needed for daily living? No 05/14/2023 Utilities Answer Date Recorded In the past 12 months, has t he electric, gas, oil or water company threatened to shut off services in your home? No 05/14/2023 Depression Answer Date Recorded Patient Health Questionnaire-2 Score 0 08/14/2022 Comments Unknown Sex and Gender Information Value Date Recorded Sex Assigned at Female 05/21/2022 10:16 AM EDT Legal Sex Female 10:16 AM EDT Gender Identity Female 05/21/2022 10:16 AM EDT Sexual Orientation Straight 05/21/2022 10 :16 AM EDT documented as of this encounter Miscellaneous Notes * Telephone Encounter - Brandi Levine RN - 06/28/2023 3:51 PM EST Please review and advise if albuterol solution can be sent to pharmacy, no record found in pt med list but has nebulizer prescribed months ago. * Telephone Encounter - Kristal Vergara - 06/28/2023 3:37 PM EST Tc from pt requesting med refill on Albuterol Nebulizer solution Medication is currently inactive Please sent to [facility] - [place], [place] - [address] documented in this encounter Plan of Treatment Upcoming Encounters Date Type Department Care Team (Late st Contact Info) Description 11/16/2024 11:15 AM EDT Telemedicine [facility] MED & PEDS [address] [place] [address] Gordon Velez MD [address] [place] [address] documented as of this encounter Visit Diagnoses Not on filedocumented in this encounter Care Teams Reciprocating Drill Operator Relationship Specialty Start Date End Date Gordon Velez MD [address] [place] [address] PCP - General Internal Medicine 11/30/19 documented as of this encounter
--- OUTSIDE RECORDS SUMMARY | 2024-10-27 13:21 | XMS_ITS | Encounter Summary ---
Author Organization [employer] Address [address] [place] [address] Care Team Providers Care Building Maintenance Engineer Name Role Phone Gordon Velez MD Primary Care Prov ider Reason for Visit * Reason Onset Date Comments Appointment Request 02/15/2023 Encounter Details Date Type Department Care Team ([facility] st Contact Info) Description 02/15/2023 Telephone [facility] MED & PEDS [address] [place], [place] [phone] Gordon Velez MD [address] [place] [address] Appointment Request Social History Tobacco Use Types Packs/Day Years Used Date Smoking Tobacco: Every Day Cigarettes Smokeless Tobacco: Never Alcohol Use Standard Drinks/Week Comments Never 0 (1 standard drink = 0.6 oz pur e alcohol) Depression Answer Date Recorded Patient Health Questionnaire-2 Score 0 08/14/2022 Comments Unknown Sex and Gender Information Value Date Recorded Sex Assigned at Female 05/21/2022 10:16 AM EDT Legal Sex Female 10:16 AM EDT Gender Identity Female 05/21/2022 10:16 AM EDT Sexual Orientation Straight 05/21/2022 10 :16 AM EDT documented as of this encounter Miscellaneous Notes * Telephone Encounter - Makenna Gonzales - 02/15/2023 10:57 AM EDT Tc from patient requesting to r/s appt from 02/15/23. Details: [facility] ED f/up 01/14- r/s Patient speaks greenlandic. documented in this encounter Plan of Treatment Upcoming Encounters Date Type Department Care Team (Late st Contact Info) Description 11/16/2024 11:15 AM EDT Telemedicine [facility] MED & PEDS [address] [place] [address] Gordon Velez MD [address] [place] [address] documented as of this encounter Visit Diagnoses Not on filedocumented in this encounter Care Teams Building Maintenance Engineer Relationship Specialty Start Date End Date Gordon Velez MD [address] [place] [address] PCP - General Internal Medicine 11/30/19 documented as of this encounter
--- OUTSIDE RECORDS SUMMARY | 2024-10-27 13:21 | XMS_ITS | Encounter Summary ---
Author Organization [employer] Address [address] [place] [address] Care Team Providers Care Guest House Manager Name Role Phone Gordon Velez MD Primary Care Prov ider Reason for Visit * Reason Comments Med Refill Encounter Details Date Type Department Care Team ([facility] st Contact Info) Description 08/13/2024 Refill [facility] CHC MED & PEDS [address] [place], [place] [phone] Gordon Velez MD [address] [place] [address] Social History Tobacco Use Types Packs/Day Years Used Date Smoking Tobacco: Every Day Smokeless Tobacco: Never Alcohol Use Standard Drinks/Week Comments Never 0 (1 standard drink = 0.6 oz pur e alcohol) Depression Answer Date Recorded Patient Health Questionnaire-9 Score 18 03/30/2024 Patient Health Questionnaire-9 Score 18 03/30/2024 Last PHQ-9: Questionnaire Data Not on file 0 03/30/2024 Housing Stability Answer Date Recorded What is your housing situation today? I have wanda ibrahim 03/30/[address] you li ve. Do you have problems with any of the following? None of the above 03/30/2024 Food Insecurity Answer Date Recorded Within the past 12 months, y ou worried that your food would run out before you got money to buy more: Never True 03/30/2024 Within the past 12 months,th e food you bought just didn't last and you didn't have enough money to get more: Never True 03/2024 Transportation Answer Date Recorded In the past 12 months, has l ack of transportation kept you from medical appts, meetings, work or from getting things needed for daily living? Yes, it has kept me from medical appointments or getting medications. 03/30/2024 Utilities Answer Date Recorded In the past 12 months, has t he electric, gas, oil or water company threatened to shut off services in your home? No 03/30/2024 Depression Answer Date Recorded Patient Health Questionnaire-2 Score 6 03/30/2024 Internet Access Answer Date Recorded Internet Access Q1 Yes 03/30/2024 Internet Access Q2 Not on file 03/30/2024 Comments No Sex and Gender Information Value Date Recorded Sex Assigned at Female 05/21/2022 10:16 AM EDT Legal Sex Female 10:16 AM EDT Gender Identity Female 05/21/2022 10:16 AM EDT Sexual Orientation Straight 05/21/2022 10 :16 AM EDT documented as of this encounter Plan of Treatment Upcoming Encounters Date Type Department Care Team (Late st Contact Info) Description 11/16/2024 11:15 AM EDT Telemedicine [facility] MED & PEDS [address] [place] [address] Gordon Velez MD [address] [place] [address] documented as of this encounter Visit Diagnoses Not on filedocumented in this encounter Additional Health Concerns Assessment Noted Time PHQ-9 Depression Total Score: 18 024 1:56 PM EDT documented as of this encounter Care Teams Guest House Manager Relationship Specialty Start Date End Date Gordon Velez MD [address] [place] [address] PCP - General Internal Medicine 11/30/19 documented as of this encounter
--- OUTSIDE RECORDS SUMMARY | 2024-10-27 13:21 | XMS_ITS | Encounter Summary ---
Author Organization [employer] Address [address] [place] [address] Care Team Providers Care Technical Business Analyst Name Role Phone Gordon Velez MD Primary Care Prov ider Reason for Visit * Reason Onset Date Comments Med Request 09/17/2024 Encounter Details Date Type Department Care Team ([facility] st Contact Info) Description 09/17/2024 Telephone [facility] MEDICINE [address] [place] [address] Gordon Velez MD [address] [place], [place] [phone] Med Request Social History Tobacco Use Types Packs/Day [...] encounter Miscellaneous Notes * Telephone Encounter - Alondra Lamas RN - 09/18/2024 11:37 AM EST TC to patient, no answer. Medication was prescribed by outside provider previously. Routing to provider for review. * Telephone Encounter - Jeffery Thrasher - 09/17/2024 9:33 AM EST Tc from pt requesting medication Jswuvtk-Cbmghiu-Yysdae Collin (Medicated Pain Relieving) 1.2-5.7-6.3 % patch to be sent to [facility], pt inform she needs a better dosage for pain. documented in this encounter Plan of Treatment Upcoming Encounters Date Type Department Care Team (Late st Contact Info) Description 11/16/2024 11:15 AM EDT Telemedicine [facility] CHC MED & PEDS [address] [place] [address] Gordon Velez MD [address] [place] [address] documented as of this encounter Visit Diagnoses Not on filedocumented in this encounter Additional Health Concerns Assessment Noted Time PHQ-9 Depression Total Score: 18 024 1:56 PM EDT documented as of this encounter Care Teams Technical Business Analyst Relationship Specialty Start Date End Date Gordon Velez MD [address] [place] [address] PCP - General Internal Medicine 11/30/19 documented as of this encounter
--- OUTSIDE RECORDS SUMMARY | 2024-10-27 13:21 | XMS_ITS | Encounter Summary ---
Author Organization [employer] Address [address] [facility] [address] [place] [address] Care Team Providers Care Interactive Media Designer Name Role Phone Gordon Velez MD Primary Care Prov ider Reason for Visit * Reason Onset Date Comments Nurse Triage 10/23/2024 Encounter Details Date Type Department Care Team (Late st Contact Info) Description 10/23/2024 Telephone [facility] MEDICINE [address] [place] [address] Gordon Velez MD [address] [place], [place] [phone] Nurse Triage Social History Tobacco Use Types Packs/Day Years Used Date Smoking Tobacco: Every Day Smokeless Tobacco: Never Alcohol Use Standard Drinks/Week Comments Never 0 (1 standard drink = 0.6 oz pur e alcohol) Depression Answer Date Recorded Patient Health Questionnaire-9 Score 5 10/16/2024 Patient Health Questionnaire-9 Score 5 10/16/2024 Last PHQ-9: Questionnaire Data Not on file 0 10/16/2024 Housing Stability Answer Date Recorded What is [...] Answer Date Recorded Patient Health Questionnaire-2 Score 2 10/16/2024 Internet Access Answer Date Recorded Internet Access [...] encounter Miscellaneous Notes * Telephone Encounter - Apple Manzano LPN - 10/23/2024 12:45 PM EDT Called patient back require window framer for triage BLS contacted for additional assistance #[phone] Reilly. Patient reports that hse has NO/ZERO BM per rectum for threee weeks. All medication provided at last visit ineffective and has used fleet enema with no results. Patient reports no nausea or vomiting ang no noted distension of abdomen. Patient is eating a fruit named Cheena ( oranges) and only beansoats and bread.Disposition reviewed and per protocol patient advised to seek ED evaluation at this time. Patient reports she will go to [facility] today.Reviewed with pt to contact PCP office after ER evaluation for follow up appt. Pt verbalized understanding and agrees. CH[facility] team updated on contact and patient disposition for today. Protocol Used: Constipation (Adult) Protocol-Based Disposition: See in Office or Video Visit Today Override (Final) Disposition: Go to ED/UCC Now (or to Office with PCP Approval) Override Reason: Already seen and worse Override Notes: Ongoing use of lactulose and mineral oil and patient reports no BM for three weeks. Video visit not offered Positive Triage Question: * Last bowel movement (BM) > 4 days ago * All higher-acuity triage questions were negative Care Advice Discussed: * High Fiber Diet * Drink Adequate Liquids * Enemas * Opioid Pain Medicine * Reasons To Call Back - Abdomen swelling, vomiting or fever occur - Constant or increasing abdomen pain - You think you need to be seen - You become worse * Telephone Encounter - Alec Moran - 10/23/2024 12:39 PM EDT TC from pt returning call regarding prior message. Contact pt at [phone] * Telephone Encounter - Apple Manzano LPN - 10/23/2024 12:09 PM EDT Triage call placed to listed number. No voice mail on listed number. Called with BLS # [phone] Dionte x2. Patient then called directly without window framer and no answer at this time. Again voice mail not set up. Team tasked to follow with patient. Protocol Used: No Contact or Duplicate Contact Call (Adult) Protocol-Based Disposition: No Contact Call Positive Triage Questions: * No answer. First attempt to contact caller. Follow-up call scheduled within 15 minutes. * Second attempt to contact caller AND no contact made. Phone number verified. * Third attempt to contact caller AND no contact made. Phone number verified. * All higher-acuity triage questions were negative * Telephone Encounter - Jeffery Thrasher - 10/23/2024 11:53 AM EDT Symptom: Constipation Outcome: Schedule an urgent appointment (within 1 hour) or talk to a nurse or provider soon Reason: Constant stomach pain The caller accepted this outcome. documented in this encounter Plan of Treatment Upcoming Encounters Date Type Department Care Team ([facility] st Contact Info) Description 11/16/2024 11:15 AM EDT Telemedicine [facility] MED & PEDS [address] [place] [address] Gordon Velez MD [address] [place] [phone] documented as of this encounter Visit Diagnoses Not on filedocumented in this encounter Additional Health Concerns Assessment Noted Time PHQ-9 Depression Total Score: 5 10/17/19 25 10:16 AM EDT documented as of this encounter Care Teams Interactive Media Designer Relationship Specialty Start Date End Date FamGordon Salas MD [address] [place] [address] NATHAN Cortez [id number] PCP - General Internal Medicine 11/30/19 documented as of this encounter
--- OUTSIDE RECORDS SUMMARY | 2024-10-27 13:21 | XMS_ITS | Clinical Summary ---
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 Name Role Phone Gordon Velez MD Primary Care Prov ider Allergies Active Allergy Reactions Criticality Noted Date Comments Acetaminophen Hives 10/09/2018 Ibuprofen Itching 01/03/2015 Morphine 03/11/2012 Other reaction(s): nausea Medications omeprazole (PriLOSEC) [address] capsuleIndicatio ns:Gastroesophag eal reflux disease without esophagitis TAKE ONE CAPSULE BY MOUTH ONCE DAILY, 30 TO 60 MINUTES BEFORE A MEAL 90 capsule 3 07/11/20 22 Active buPROPion XL (Wellbutrin XL) 300 MG 24 hr tablet TAKE ONE TABLET DAILY WITH 150mg TABLET 07/18/20 22 Active escitalopram (Lexapro) 10 MG tablet Take 10 mg by mouth in the morning. 07/18/20 22 Active mirtazapine (Remeron) 7.5 MG tablet Take 7.5 mg by mouth at bedtime. 07/18/20 22 Active polyethylene glycol, PEG, 3350 (Glycolax) 17 GM/SCOOP powderIndication s:Chronic idiopathic constipation STIR 17GM INTO 8 OUNCES OF WATER, OR JUICE, AND DRINK DAILY NEEDED / DIRECTED 510 g 11 10/17/19 24 Active Diclofenac Sodium 1 % gelIndications:M ultiple joint pain APPLY 2 GRAM'S TO AFFECTED AREA(s) THREE TIMES DAILY NEEDED 100 g 1 11/05/19 24 Active Artificial Tears 0.2-0.2-1 % solutionIndicati ons:Seasonal allergies PLACE ONE DROP IN THE AFFECTED EYE(S) THREE TIMES DAILY 15 mL 11 01/13/20 24 Active loratadine (Claritin) 10 MG tabletIndication s:Seasonal allergies TAKE ONE TABLET BY MOUTH EVERY DAY NEEDED ALLERGIES 90 tablet 3 02/04/20 24 Active Oyster Shell Calcium 500 MG tablet TAKE ONE TABLET TWICE DAILY 180 tablet 3 02/04/20 24 Active atorvastatin (Lipitor) 40 MG tabletIndication s:Hyperlipidemia associated with type 2 diabetes mellitus (CMS/HCC) TAKE ONE TABLET EVERY DAY 90 tablet 3 02/04/20 24 Active cholecalciferol (Vitamin D-3) 25 MCG tablet TAKE ONE TABLET EVERY 90 tablet 3 02/04/20 24 Active Aspirin Adult Low Strength 81 MG EC tablet TAKE ONE TABLET EVERY DAY 90 tablet 3 02/04/20 24 Active famotidine (Pepcid) 20 MG tablet Take 1 tablet (20 mg) by mouth at bedtime. 90 tablet 3 03/02/20 24 2024 Active polyvinyl alcohol (Liquifilm Tears) 1.4 % ophthalmic solution INSTILL ONE DROP IN THE AFFECTED EYE(S) THREE TIMES DAILY 02/24/20 24 Active Blood Glucose Monitoring Suppl ([employer]) w/Device kit 1 kit 4 times daily. 1 kit 06/23/20 24 2024 Active Nebulizers [facility] Use nebulizer as instructed 1 each 07/07/20 24 Active albuterol (2.5 MG/3ML) 0.083% nebulizer solution INHALE ONE AMPULE USING A NEBULIZER EVERY 4 HOURS NEEDED FOR WHEEZING 90 mL 2 08/07/19 25 Active docusate sodium (Colace) 100 MG capsuleIndicatio ns:Chronic idiopathic constipation TAKE ONE CAPSULE TWICE DAILY 180 capsule 3 08/20/19 25 Active SITagliptin (Januvia) 100 MG tabletIndication s:Type 2 diabetes mellitus without complications (CMS/HCC) TAKE ONE TABLET BY MOUTH EVERY DAY 30 tablet 3 08/21/19 25 Active buPROPion XL (Wellbutrin XL) 150 MG 24 hr tablet TAKE 1 TABLET EVERY MORNING WITH 300mg TABLET 08/14/19 25 Active hydrOXYzine HCl (Atarax) 25 MG tablet TAKE ONE TABLET EVERY NIGHT NEEDED FOR SLEEP 04/29/20 24 Active levothyroxine (Synthroid, Levoxyl) 137 MCG tablet Take 1 tablet by mouth Once per day. 06/05/20 24 Active LORazepam (Ativan) 0.5 MG tablet TAKE 1 TABLET ONCE DAILY NEEDED AND MAY TAKE ONE TABLET EVERY THREE DAYS 07/31/19 25 Active terbinafine (LamISIL) 250 MG tablet Take 250 mg by mouth Once per day. Active nabumetone (Relafen) 750 MG tablet Take 750 mg by mouth 2 times daily. Active ipratropium (Atrovent) 17 MCG/ACT inhaler Inhale 2 Puffs into the lungs every 6 hours. Active dextran 70-hypromellose (GenTeal Tears) 0.1-0.3 % ophthalmic solution apply 0.1-0.3 Drops to the eye 3 times daily. Active clotrimazole (Lotrimin) 1 % cream apply topically to affected area(s) twice daily 07/06/20 24 Active clonazePAM (KlonoPIN) 1 MG tablet Take 1 mg by mouth 2 times daily as needed. Active Fluticasone Furoate-Vilanter ol (Breo Ellipta) 200-25 MCG/ACT aerosol powderIndication s:Moderate persistent asthma without complication INHALE 1 PUFF DAILY AT THE SAME TIME EACH DAY RINSE MOUTH AFTER USE 60 each 3 09/01/19 25 Active Nutritional Supplements (Boost High Protein) liquid DRINK ONE BOTTLE TWICE DAILY 1 mL 11 09/10/19 25 Active Camphor-Menthol- Methyl Collin (Medicated Pain Relieving) 1.2-5.7-6.3 % patch Place 1 patch on the skin if needed each day (Pain). 30 patch 3 09/18/19 25 Active lidocaine (Lidoderm) 5 % patch Apply 1 patch topically Once per day. Remove & discard patch within 12 hours or as directed by MD. 30 patch 3 09/24/19 25 Active fluticasone (Flonase) 50 MCG/ACT nasal sprayIndications :Seasonal allergies INHALE ONE SPRAY IN EACH NOSTRIL TWICE DAILY 48 g 09/29/19 25 Active oxyCODONE-acetam inophen (Percocet) 5-325 MG tabletIndication s:Chronic right shoulder pain TAKE ONE TABLET EVERY NIGHT AT BEDTIME NEEDED FOR SEVERE PAIN 15 tablet 10/02/19 25 Active FREESTYLE LITE test strip 1 each by Other route Once per day. 90 each 3 10/08/19 25 2025 Active TRUEplus Lancets 33G miscIndications: Type 2 diabetes mellitus without complication, without long-term current use of insulin ([facility]) 1 each by Other route Once per day. 90 each 3 10/08/19 25 2025 Active lactulose (Chronulac) 10 GM/15ML solution TAKE 15 ML BY MOUTH ONCE DAILY FOR 15 DAYS 150 mL 10/17/19 Active mineral oil liquid Take 30 mL by mouth if needed each day for constipation. 180 mL 12 10/17/19 25 2025 Active albuterol (Ventolin HFA) 108 (90 Base) MCG/ACT inhalerIndicatio ns:Severe persistent asthma without complication INHALE TWO PUFFS EVERY 6 HOURS NEEDED FOR WHEEZING 18 g 1 10/20/19 25 Active TRUEplus Lancets 33G miscIndications: Type 2 diabetes mellitus without complication, without long-term current use of insulin ([facility]) TEST BLOOD SUGAR FOUR TIMES DAILY 100 each 11 12/23/19 24 2024 Discontinued(R eorder (will not trigger notification to Pharmacy)) FREESTYLE LITE test strip USE TO TEST BLOOD SUGAR FOUR TIMES DAILY 100 strip 11 05/14/20 24 2024 Discontinued(R eorder (will not trigger notification to Pharmacy)) fluticasone (Flonase) 50 MCG/ACT nasal sprayIndications :Seasonal allergies USE ONE SPRAY IN EACH NOSTRIL TWICE DAILY 48 g 07/03/20 24 2024 Discontinued lactulose (Chronulac) 10 GM/15ML solution TAKE 15 ML BY MOUTH ONCE DAILY FOR 15 DAYS 150 mL 07/09/20 24 2024 Discontinued(R eorder (will not trigger notification to Pharmacy)) albuterol (Ventolin HFA) 108 (90 Base) MCG/ACT inhalerIndicatio ns:Severe persistent asthma without complication INHALE TWO PUFFS EVERY 6 HOURS NEEDED FOR WHEEZING 18 g 1 09/04/19 25 2024 Discontinued oxyCODONE-acetam inophen (Percocet) 5-325 MG tabletIndication s:Chronic right shoulder pain Take 1 tablet by mouth if needed at bedtime for severe pain for up to 15 days. 15 tablet 09/24/19 25 2024 Discontinued FREESTYLE LITE test strip 1 each by Other route Once per day. 90 each 3 10/03/19 25 2024 Discontinued(R eorder (will not trigger notification to Pharmacy)) TRUEplus Lancets 33G miscIndications: Type 2 diabetes mellitus without complication, without long-term current use of insulin ([facility]) 1 each by Other route Once per day. 90 each 3 10/03/19 25 2024 Discontinued(R eorder (will not trigger notification to Pharmacy)) Active Problems Patient Care Coordination No te Formatting of this note migh t be different from the original. [id number] Piyush Cheney, TC-LVM Problem Noted Date Diagnosed Date Right hip pain 05/25/2024 Assessment & Plan (08/04/2024 12:11 AM EST): Patient pain remains, will prvide a short course of tramadol, continue tylenol as needed, will refer to ortho Assessment & Plan (05/25/2024 11:27 AM EST): Started 2 weeks ago, denied trauma, no swelling, no erythema, will order right hip xray, prednisone for 5 days and tramadol for 3 days, call back if not improving, will consider PT in the future if not improving Screen for colon cancer 08/28/2023 Assessment & Plan (08/28/2023 1:11 PM EST): Will refer for screening colon cacner Loss of appetite 03/18/2023 Assessment & Plan (03/18/2023 11:14 AM EDT): Patient with hx of thyroid cancer, has been losing appetite, to maintain good calorie intake will send rx for boost/ensure nutritional drink Chronic midline low back pain without sciatica 0 03/05/2023 Assessment & Plan (08/14/2024 1:30 PM EST): Chronic low back and hip pain, patient was sent to pain management, she referred that was not interested in injections, had a long discussion with her regarding treatment options, she refers tramadol is the only wants that help, her issue is that she has hx of breaking contract rule previously with other provider and had one hospital admission due to fentanyl overdose, I told her this prescription will not be sent anymore. Assessment & Plan (07/07/2024 10:34 AM EST): Will provide short course of tramadol, oriented patient of risk, will refer to pain management Assessment & Plan (03/05/2023 2:37 PM EDT): Patient complains of chronic low back pain, will refer to pain management, she has been followed before, Hx of thyroid cancer 03/05/2023 Assessment & Plan (07/07/2024 10:33 AM EST): Followed by endocrinology, on levothyroxine, no changes will be made Assessment & Plan (03/05/2023 2:43 PM EDT): Patient being followed by endocrinology, she had a wbs done on 2022 with small radiotracer uptake on the left side, followed at [facility] and she is on evaluation for surgery vs I131 therapy. Myalgia 12/03/2022 Assessment & Plan (12/03/2022 2:14 PM EDT): Patient with hx of fibromyalgia and chronic joint pain, she was on tramadol by specialist, but violated contract, was found with + fentanyl on urine test, she is requesting to be back on tramadol as it helped manage the pain, told her about the serious risk of respiratory failure, will provide muscle relaxant and will follow up in 1 week. Chronic pain syndrome 10/25/2022 Assessment & Plan (12/10/2022 1:42 PM EDT): Patient refers muscle relaxant did not help much, she is requesting tramadol/percocet. 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 Mixed simple and mucopurulent chronic bronchitis 10/25/2022 Assessment & Plan (10/25/2022 10:16 AM EDT): Chronic smoker, on albuterol for rescue and breo-ellipta, will refer to pulmonology for evaluation Chronic idiopathic constipation 08/14/2022 Assessment & Plan (08/14/2022 10:04 AM EST): On miralax, told to increase fiber in diet and fluids, will add docusate External hemorrhoid, bleeding 08/14/2022 Assessment & Plan (08/14/2022 10:06 AM EST): Refer for the past week she has been seeing blood in the bathroom tissue paper, not on the toilet, and no dark stools, she refers had a colonoscopy last year, and has hx of hemorrhoids, culprit is constipation, if bleeding persist for another week call back Abnormal gait 08/02/2022 Hyperlipidemia associated with type 2 diabetes m stephen 08/02/2022 Assessment & Plan (07/07/2024 10:33 AM EST): Controlled on januvia, last A1c <7.0%, no changes will be made, eye exam done Assessment & Plan (04/23/2024 1:43 PM EDT): On atorvastatin, told to get blood work done for guidance of therapy, no reported side effects, continue same treatment Assessment & Plan (09/03/2023 11:12 PM EST): On atorvastatin, no side effects reported, continue current therapy, will follow up in 3 months Assessment & Plan (08/28/2023 1:12 PM EST): On atorvastatin 40mg, will order new labs for guidance of therapy Assessment & Plan (10/25/2022 10:07 AM EDT): On statin therapy, controlled, no changes will be made Basal cell carcinoma of face 11/18/2020 Severe persistent asthma 11/12/2018 Edentulous 06/10/2018 Acquired hypothyroidism 03/05/2018 Assessment & Plan (10/25/2022 10:06 AM EDT): Followed by endocrinology, she will receive radioactive ablation therapy next week, Benzodiazepine dependence, continuous 03/05/2018 Chronic back pain 03/05/2018 History of right mastectomy 03/05/2018 History of thyroidectomy 03/05/2018 Mood disorder 03/05/2018 Opioid abuse 03/05/2018 Seasonal allergies 03/05/2018 Type 2 diabetes mellitus without complication Assessment & Plan (08/14/2024 1:30 PM EST): Controlled, contionue low carb/no sugar diet, follow up in 3 months Assessment & Plan (04/23/2024 1:42 PM EDT): Controlled, A1c 5.3%, on januvia, no changes will be made, continue low carb/no sugar diet Assessment & Plan (12/04/2023 10:42 PM EDT): Controlled, on januvia, no reported episode of hypoglycemia, continue low carb diet and exercise as tolerated, labs previously ordered not done, she will get them this week Assessment & Plan (09/03/2023 11:13 PM EST): On januvia, last A1c <7.0% from 06/03, no changes will be made Pending eye exam Assessment & Plan (08/28/2023 1:13 PM EST): Last A1c from 05/2023 was <7.0%, reinforced low carb/no sugar diet, continue current management Vitamin D deficiency 03/05/2018 Encounters Date Type Department Care Team Description 10/23/2024 Telephone [facility] [address] [place] [address] Gordon Velez MD Prior Authorization (Lidocaine patches ) 10/23/2024 Telephone [facility] [address] [place] [address] Gordon Velez MD Nurse Triage 10/18/2024 Refill [facility] [address] [place] [address] Gordon Velez MD Severe persistent asthma without complication 10/16/2024 10:30 AM EDT Telemedicine [facility] [address] [place] [address] Gordon Velez MD Chronic idiopathic constipation (Primary Dx); Screen for colon cancer 10/16/2024 Travel 10/14/2024 Telephone [facility] [address] [place] [address] Gordon Velez MD chart prep 10/13/2024 Telephone [facility] [address] [place] [id number] Gordon Velez MD 10/07/2024 Orders Only [facility] [address] [place] [address] Gordon Velez MD Type 2 diabetes mellitus without complication, without long-term current use of insulin ([facility]) 10/02/2024 Telephone [facility] [address] [place] [id number] Gordon Velez MD Medication Question 10/02/2024 Population Health Risk Score [facility] () Department [address] [place] [id number] Provider, Population Health Generic 10/01/2024 Telephone [facility] [address] [place] [address] Gordon Velez MD Prior Authorization 09/30/2024 Refill [facility] [address] [place] [address] Erica Anaya MD Chronic right shoulder pain 09/26/2024 Refill [facility] [address] [place] [address] Gordon Velez MD Seasonal allergies 09/23/2024 11:30 AM EST Office Visit [facility] [address] [place] [address] Erica Anaya MD Encounter for immunization (Primary Dx); Chronic right shoulder pain 09/23/2024 Refill [facility] [address] [place] [address] Paige Harris RN 09/23/2024 Telephone [facility] [address] [place] [address] Gordon Velez MD 09/23/2024 Travel 09/22/2024 Telephone [facility] [address] [place] [address] Gordon Velez MD Nurse Triage 09/18/2024 Telephone [facility] [address] [place] [address] Gordon Velez MD Medication Question 09/18/2024 Refill [facility] [address] [place] [phone] Gordon Velez MD 09/17/2024 Outside Procedure [facility] [address] [place] [address] Ashlie Velasquez, OD Presbyopia (Primary Dx) 09/17/2024 Telephone [facility] [address] [place] [id number] Gordon Velez MD Med Request 09/14/2024 9:15 AM EST Office Visit [facility] [address] [place] [address] Ashlie Velasquez, OD Hyperopia of both eyes (Primary Dx) 09/10/2024 Refill [facility] [address] [place] [address] Gordon Velez MD 09/04/2024 Telephone [facility] [address] [place] [address] Ashlie Velasquez, OD 09/03/2024 Refill [facility] [address] [place] [address] Janette Bernstein MD Severe persistent asthma without complication 09/01/2024 Refill [facility] [address] [place] [address] Gordon Velez MD Moderate persistent asthma without complication 08/24/2024 Telephone [facility] [address] [place] [address] Gordon Velez MD Referral 08/21/2024 Refill [facility] [address] [place] [address] Gordon Velez MD Type 2 diabetes mellitus without complications (CMS/HCC) 08/20/2024 Refill [facility] [address] [place] [address] Gordon Velez MD Chronic idiopathic constipation 08/13/2024 Refill [facility] [address] [place] [address] Gordon Velez MD 08/07/2024 10:30 AM EST Office Visit [facility] [address] [place] [address] Gordon Velez MD Type 2 diabetes mellitus without complication, without long-term current use of insulin (CMS/HCC); Chronic midline low back pain without sciatica 08/07/2024 Refill [facility] [address] [place] [address] Gordon Velez MD Chronic midline low back pain without sciatica 08/07/2024 Travel 08/06/2024 Telephone [facility] [address] [place] [address] Gordon Velez MD Chart Prep 08/05/2024 2:00 PM EST Office Visit [facility] [address] [place] [address] RonChuckien, OD Type 2 diabetes mellitus without complication, without long-term current use of insulin ([facility]) (Primary Dx); Combined forms of age-related cataract of both eyes; Hyperopia of both eyes 08/05/2024 Travel 08/03/2024 Travel 07/31/2024 Telephone [facility] [address] [place] [address] Gordon Velez MD Medication Question 07/30/2024 Telephone [facility] [address], [place] [phone] Gordon Velez MD Nurse Triage 07/30/2024 Refill [facility] [address] [place], [place] [phone] Gordon Velez MD Chronic midline low back pain without sciatica from Last 3 Months Immunizations Name Administration Dates Next Due Hep B, adult 02/11/2009,04/28/2008,01/07/2008 Influenza injectable quadriv alent IIV4 with preservative 05/31/2016,04/13/2015 Influenza injectable quadriv alent preservative free 06/10/2018,04/24/2017 Influenza, IIV3, injectable 07/02/2014, 1 Influenza, Split (incl. paul fied surface antigen) 07/07/2012 Influenza, seasonal, injecta ble, preservative free 09/23/2024,08/29/2017 Moderna Covid-19 Vaccine 12+ 06/23/2021,10/20/19 21,09/21/2020 TD (adult), 2 Lf tetanus tox oid, preservative free, adsorbed 02/12/2019,05/02/2006 Td (adult), 5 Lf tetanus tox oid, preservative free, adsorbed 09/04/2014 Tdap 09/04/2014,02/02/2013 Social History Tobacco Use Types Packs/Day Years Used Date Smoking Tobacco: Every Day Smokeless Tobacco: Never Tobacco Cessation:Ready to Q uit: Not Asked; Counseling Given: Not Answered Alcohol Use Standard Drinks/Week Comments Never 0 (1 standard drink = 0.6 oz pur e alcohol) Depression Answer Date Recorded Patient Health Questionnaire-9 Score 5 10/16/2024 Patient Health Questionnaire-9 Score 5 10/16/2024 Last PHQ-9: Questionnaire Data Not on file 0 10/16/2024 Housing Stability Answer Date Recorded What is your housing situation today? I have wanda patrice 03/30/[address] you li [...] Orientation Straight 05/21/2022 10 :16 AM EDT Last Filed Vital Signs Vital Sign Reading Time Taken Comments Blood Pressure 111/57 09/23/2024 11:39 AM EST Pulse 78 09/23/2024 11:39 AM EST Temperature 37.4 ??C (99.3 ??F) 09/23/2024 11:[address] Respiratory Rate 20 09/23/2024 11:39 AM EST Oxygen Saturation 94% 08/07/2024 10:33 AM EST Inhaled Oxygen Concentration - - Weight 68.5 kg (151 lb) 09/23/2024 11:39 AM EST Height 157.5 cm (5' 2 ) 09/23/2024 11:39 AM EST Body Mass Index 27.62 09/23/2024 11:39 AM EST Plan of Treatment Upcoming Encounters Date Type Department Care Team (Late st Contact Info) Description 11/16/2024 11:15 AM EDT Telemedicine [facility] [address] [place], [place] [phone] Gordon Velez MD [address] [facility] [place] [address] Health Maintenance Due Date Last Done Comments CT Colonography 1959 FIT DNA/Cologuard 1959 FIT 1959 FOBT 1959 Sigmoidoscopy 1959 Derm Melanoma Skin Check 04/13/1960 Diabetes: Foot Exam 10/11/1969 Eye Exam 10/11/1969 Alcohol/Substance Use Screening 1971 Pneumococcal Vaccine: 50+ Years (1 of 2 - PCV) 10/11/1978 Zoster Vaccines (1 of 2) 10/11/2009 RSV Patients and Patients Aged 60 years or older (1 - Risk 60-74 years 1-dose series) 2019 Colonoscopy 11/23/2020 11/24/2015 Colorectal Cancer Screening 11/23/2020 Diabetes: Urine Protein Screening 05/31/2021 05/31/2020 COVID-19 Vaccine ( season) 2024 06/23/2021, 10/19/2020, 09/21/2020 Diabetes: Hemoglobin A1C 02/04/2025 025, 05/13/2024, 03/30/2024, Additional history exists SDOH Screening 03/30/2025 03/30/2024 Pap Smear 04/10/2025 04/10/2022 Lipid Panel 05/13/2025 05/13/2024 Tobacco Screening 08/24/2025 08/24/2024 Mammogram 09/18/2025 09/19/2023, 0812/2021, 04/12/2021, Additional history exists Depression Screening 10/16/2025 10/16/2024, 10/17/19 Cervical Cancer Screening 04/10/2027 HPV/Cotest 04/10/2027 04/10/2022, 03/31/2019 DTaP/Tdap/Td Vaccines (5 - Td or Tdap) 02/12/2029 02/12/2019, 09/04/2014, 09/04/2014, Additional history exists Hepatitis B Vaccines Completed 02/11/2009, 04/28/2008, 01/07/2008 Hepatitis C Screening Completed 05/13/2024 Influenza Vaccine Completed 09/23/2024, , 08/29/2017, Additional history exists HIB Vaccines Aged Out No longer eligi ble based on patient's age to complete this topic HPV Vaccines Aged Out No longer eligi ble based on patient's age to complete this topic Hepatitis A Vaccines Aged Out No long er eligible based on patient's age to complete this topic IPV Vaccines Aged Out No longer eligi ble based on patient's age to complete this topic Meningococcal Vaccine Aged Out No rolo dash eligible based on patient's age to complete this topic RSV under 20 months Aged Out No longe r eligible based on patient's age to complete this topic Rotavirus Vaccines Aged Out No longer eligible based on patient's age to complete this topic Procedures Procedure Name Priority Date/Time Associated Diagnosis Comments POCT GLUCOSE Routine 08/07/2024 10:34 AM EST Type 2 diabetes mellitus without complication, without long-term current use of insulin (CMS/HCC) POCT GLYCATED HEMOGLOBIN, TOTAL Routine 08/07/2024 10:34 AM EST Type 2 diabetes mellitus without complication, without long-term current use of insulin (CMS/HCC) HEPATITIS C AB W/REFL TO HCV RNA, QN, PCR Routine 05/13/2024 2:24 PM EDT Hyperlipidemia associated with type 2 diabetes mellitus (CMS/HCC) (CMS/HCC) LIPID PANEL, STANDARD Routine 05/13/2024 2:24 PM EDT Hyperlipidemia associated with type 2 diabetes mellitus (CMS/HCC) (CMS/HCC) BI MAMMOGRAM SCREENING TOMOSYNTHESIS LEFT Routine 09/19/2023 12:35 PM EST Visit for screening mammogram THINPREP IMAGING PAP AND HPV MRNA E6/E7 WITH REFLEX TO HPV 16,18/45 Routine 04/10/2022 11:22 AM EDT ZZZ HISTORICAL MICROALBUMIN, RANDOM Routine 05/31/2020 12:00 AM EST HM COLONOSCOPY Routine 11/24/2015 12:21 PM EDT from Last 3 Months or Most Recently Relevant to Health Maintenance Results * POCT A1C (08/07/2024 10:34 AM EST) Hemoglobin A1C 5.5 4.0 - 6.0 % QC Media Lot # Comment:[id number] Lot# Expiration Date Comment:02/19/2026 Blood 08/07/2024 10:3 4 AM EST Gordon Rose MD POINT OF CARE TEST ENTER/EDIT ORDERABLES Final Result * POCT glucose manually resulted (08/07/2024 10:34 AM EST) Pathologist [facility] Glucose Blood, POC 172 60 - 200 mg/dL QC Media Lot # Comment:[id number] Lot# Expiration Date Comment:10/27/2024 Blood Capillary blood specimen / Unknown 08/07/2024 10:34 AM EST Gordon Rose MD POINT OF CARE TEST ENTER/EDIT ORDERABLES Final Result * Hepatitis C Antibody with Reflex to HCV, RNA, Quantitative, Real-Time PCR (05/13/2024 2:24 PM EDT) Pathologist [facility] Hepatitis C Antibody Nonreactive Nonreactive [facility] Comment:Antibodies to HCV no t detected; does not exclude early acuteHCV infection. Blood Venous blood specimen / Unknown 05/13/2024 2:24 PM EDT 05/13/2024 5:31 PM EDT Gordon Rose MD LAB BLOOD ORDERABL ES Final Result [facility] [address] [place] [phone] * (ABNORMAL) Lipid Panel, Standard (05/13/2024 2:24 PM EDT) Pathologist [facility] Triglycerides 138 <150 mg/dL [facility] Comment:Desirable Triglyceri de: less than 150 mg/dLBorderline High Triglyceride 150-199 mg/dLHigh Triglyceride: 200-499 mg/dLVery High Triglyceride: greater than or equal to 5OO mg/dL Cholesterol 131 <200 mg/dL [facility] Comment:Desirable Cholestero l: less than 200 mg/dLBorderline High Cholesterol: 200-239 mg/dLHigh Cholesterol: greater than 239 mg/dL LDL Cholesterol Calculated 65 <100 mg/dL [facility] Comment:Desirable LDL: less than 100 mg/dLNear Optimal/Above Optimal LDL: 110- 129 mg/dLBorderline High LDL: 130-159 mg/dLHigh LDL: 160-189 mg/dLVery High LDL: greater than or equal to 190 mg/dL HDL Cholesterol 39(L) >40 mg/dL [facility] Comment:Desirable HDL: great er than 40 mg/dL Note: This HDL assay may give artificially low results in patients with liver disease. Blood Venous blood specimen / Unknown 05/13/2024 2:24 PM EDT 05/13/2024 5:31 PM EDT Gordon Rose MD LAB BLOOD ORDERABL ES Final Result [facility] [address] [place] [phone] * BI Mammogram Screening Tomosynthesis Left (09/19/2023 12:35 PM EST) Anatomical Region Laterality Modality Breast Left Mammography 09/19/2023 12:3 5 PM EST Narrative 09/23/2023 10:08 AM EST ? [facility] [place] ? [address] ?[place] [address] ? Mammography Report ? Signed ? Patient: Juan Ferguson,Jodi ?MR#: ?? [id number] ? : 1960 ?Acct:[id number] ? Age/Sex: 62 / F ?ADM Date: 02/29/24 ? Loc: HO.MAMMO ? Attending Dr: Sal Tabor CNM ? Ordering Physician: SAL TABOR CNM ?Results: 1 ?? Negative ? Date of Service: 09/19/23 ?Follow Up: 1 Year From Orig ?? inal Mammogram ? Procedure(s): MM tomosynthesis screening LT ?? Accession Number(s): [id number] ? cc: SAL TABOR CNM ? EXAMINATION: ?? MM SCREENING DIGITAL BREAST TOMOSYNTHESIS, LEFT ? CLINICAL INFORMATION: ? Screening. Asymptomatic. ? The patient is status post right mastectomy. ?? COMPARISON: ?? Mammography: This study is compared with prior exams dating back to ? TECHNIQUE: ?? Digital breast tomosynthesis is performed in both the craniocaudal and ?? mediolateral oblique views along with computer-aided detection (CAD). ?? Synthesized 2D images are generated from the tomosynthesis. ? FINDINGS: ?? There are scattered areas of fibroglandular density (ACR BI-RADS breast ?? composition Category b). ? There are no significant masses, abnormal calcifications, or other ?? abnormalities. ? MM/MM tomosynthesis screening LT ?? IMPRESSION: ?? No mammographic evidence of malignancy. ? ASSESSMENT: ? BI-RADS BI-RADS 1 - Negative ? RECOMMENDATION: ?? Routine annual mammography screening. ? 1 year F/U ? This examination should not preclude the clinical evaluation of a ?? suspicious palpable abnormality. ? This patient's information was entered into a reminder system with a ?? target due date for their next mammogram. ? Dictated By: ?Darling Stewart MD ? Signed By: ?<Electronically signed by Darling Stewart MD in OV> ? 09/23/234 ? DD/ 1235 ? TD/TT: ? Evs Attendant: ? Procedure Note Donotuseinterpreter, Image - 09/23/2023 [facility] [address] [place] [address] Mammography Report Signed Patient: Herman Saenz#: [id number] : 1960Acct:[id number] Age/Sex: 62 / FADM Date: 09/19/23 Loc: HO.MAMMO Attending Dr: Sal Tabor CNM Ordering Physician: SAL TABORults: 1 Negative Date of Service: 09/19/23Follow Up: 1 Year From Orig inal Mammogram Procedure(s): MM tomosynthesis screening LT Accession Number(s): [id number] cc: SAL TABOR CNM EXAMINATION: MM SCREENING DIGITAL BREAST TOMOSYNTHESIS, LEFT CLINICAL INFORMATION: Screening. Asymptomatic. The patient is status post right mastectomy. COMPARISON: Mammography: This study is compared with prior exams dating back to TECHNIQUE: Digital breast tomosynthesis is performed in both the craniocaudal and mediolateral oblique views along with computer-aided detection (CAD). Synthesized 2D images are generated from the tomosynthesis. FINDINGS: There are scattered areas of fibroglandular density (ACR BI-RADS breast composition Category b). There are no significant masses, abnormal calcifications, or other abnormalities. MM/MM tomosynthesis screening LT IMPRESSION: No mammographic evidence of malignancy. ASSESSMENT: BI-RADS BI-RADS 1 - Negative RECOMMENDATION: Routine annual mammography screening. 1 year F/U This examination should not preclude the clinical evaluation of a suspicious palpable abnormality. This patient's information was entered into a reminder system with a target due date for their next mammogram. Dictated By: Darling Stewart MD Signed By: <Electronically signed by Darling Stewart MD in OV> 09/23/23 1004 DD/ 1235 TD/TT: Evs Attendant: Sal Conchis [facility] IMG BI PROCEDURES Final R esult * THINPREP TIS PAP AND HPV mRNA E6/E7 WITH REFLEX TO HPV 16,18/45 (04/10/2022 11:22 AM EDT) Clinical Information: None given [facility] COMMENT SEE COMMENT [facility] Comment: EXPLANATORY NOTE: ? The Pap is a screening test for cervical cancer. It is ?? not a diagnostic test and is subject to false negative ?? and false positive results. It is most reliable when a ?? satisfactory sample, regularly obtained, is submitted ?? with relevant clinical findings and history, and when ?? the Pap result is evaluated along with historic and ?? current clinical information. ?? COMMENT: This Pap test has been evaluated with computer assisted technology. [facility] Economic Research Analyst: SEE COMMENT [facility] Comment: SL, CT(ASCP) CT screening location: [address] ??[address] HPV nRNA E6/E7 Not Detected Not Detected [facility] Comment: Methodology: Plastic Printer-Mediated Amplification This assay detects E6/E7 viral messenger RNA (mRNA) from 14 high-risk HPV types (16,18,31,33,35,39,45,51,52,56,58,59,66,68). ? Cervical sources are required for HPV testing. If a vaginal source from a patient who has had a total hysterectomy with removal of cervix was ?? submitted, please contact the testing laboratory for alternative testing options. ?? For additional information, please refer to http://education.[employer]/faq/BMO567m1 (This link if provided for information/ educational purposes only.) Interpretation/Res ult: SEE COMMENT [facility] Comment: Negative for intraepithelial lesion or malignancy. Atrophic pattern; predominantly parabasal cells LMP: NONE GIVEN [facility] Prev. BX: NONE [facility]IVEN [facility] Prev. PAP: 03/2019 NIL/NEG HYST 2 CHERELLE 2011 [facility] Review Economic Research Analyst: SEE COMMENT [facility] Comment: CONRAD, CT(ASCP) CT screening location: [address] ??[address] SOURCE: None given [facility] Statement Of Adequacy: SATISFACTORY FOR EVALUATION [facility] 04/10/2022 11:2 2 AM EDT Sal PRITCHETTM LAB PATHOLOGY ORDERABLES Final Result Performing Organization Address City/[facility]/ZIP Co de Phone Number [facility] [address] * MICROALBUMIN, RANDOM (05/31/2020 12:00 AM EST) Creatinine Urine 33.22 mg/dL [facility] Microalbum/Creati nine Ratio Ur TNP ug/mg cr [facility] Comment: Unable to calculate albumin/creatinine ratio due to low microalbumin or creatinine result. Microalbumin Urine <5.0 mg/L [facility] 05/31/2020 Historical Provider HISTORICAL/NON ORDERABLE LABS Final Result Performing Organization Address [facility] Co de Phone Number [facility] [address] * Hm Colonoscopy (11/24/2015 12:21 PM EDT) Historical Provider HEALTH MAINTENANCE Final Result from Last 3 Months or Most Recently Relevant to Health Maintenance Insurance STANDARD MEDICARE Care Teams Annealing Oven Operator Relationship Specialty Start Date End Date Gordon Velez MD [address] [place] [phone] PCP - General Internal Medicine 11/30/19
--- OUTSIDE RECORDS SUMMARY | 2024-10-27 13:21 | XMS_ITS | Encounter Summary ---
Author Organization [employer] Address [address] [facility] 7t [place] [address] Care Team Providers Care Bakery Technician Name Role Phone Gordon Velez MD Primary Care Prov ider Reason for Visit * Reason Onset Date Comments Prior Authorization 10/01/2024 Encounter Details Date Type Department Care Team (Late st Contact Info) Description 10/01/[address] [facility] [address] [place] [address] Gordon Velez MD [address] [place], [place] [phone] Prior Authorization Social History Tobacco Use Types Packs/Day Years [...] encounter Miscellaneous Notes * Telephone Encounter - Hilda Yu LPN - 10/01/2024 1:12 PM EDT Form received pending signature. Tc from pt requesting PA for med [employer] Lancets 33G misc. Contact pt at [phone] * Telephone Encounter - Alec Moran - 10/01/2024 12:35 PM EDT Tc from pt requesting PA for med [employer] Lancets 33G misc. Contact pt at [phone] documented in this encounter Plan of Treatment Upcoming Encounters Date Type Department Care Team (Late st Contact Info) Description 11/16/2024 11:[address] [facility] [address] [place], [place] [phone] Gordon Velez MD [address] [place] [address] documented as of this encounter Visit Diagnoses Not on filedocumented in this encounter Additional Health Concerns Assessment Noted Time PHQ-9 Depression Total Score: 18 024 1:56 PM EDT documented as of this encounter Care Teams Bakery Technician Relationship Specialty Start Date End Date Gordon Velez MD [address] [place] [phone] PCP - General Internal Medicine 11/30/19 documented as of this encounter
--- OUTSIDE RECORDS SUMMARY | 2024-10-27 13:21 | XMS_ITS | Encounter Summary ---
Author Organization [employer] Address 75 [facility] 7 [place] [address] Care Team Providers Care Tap Dancer Name Role Phone Gordon Velez MD Primary Care Prov ider Reason for Visit * Reason Onset Date Comments Prior Authorization 10/23/2024 Lidocaine pa tches Encounter Details Date Type Department Care Team ([facility] Contact Info) Description 10/23/2024 Telephone [facility] [address] [place] [address] Gordon Velez MD [address] [place] [address] Prior Authorization (Lidocaine patches ) Social History Tobacco Use Types Packs/Day Years [...] your housing situation today? I have wanda sing 03/30/[address] you li [...] Telephone Encounter - Hilda Yu LPN - 10/23/2024 12:23 PM EDT PA generated for Lidocaine via CMM pending insurance decision. documented in this encounter Plan of Treatment Upcoming Encounters Date Type Department Care Team (Late st Contact Info) Description 11/16/2024 11:15 AM EDT Telemedicine [facility] MED & PEDS [address] [place] [address] Gordon Velez MD [address] [place] [address] documented as of this encounter Visit Diagnoses Not on filedocumented in this encounter Additional Health Concerns Assessment Noted Time PHQ-9 Depression Total Score: 5 10/17/19 25 10:16 AM EDT documented as of this encounter Care Teams Tap Dancer Relationship Specialty Start Date End Date Gordon Velez MD [address] [place] [address] PCP - General Internal Medicine 11/30/19 documented as of this encounter
--- OUTSIDE RECORDS SUMMARY | 2024-10-27 13:21 | XMS_ITS | Encounter Summary ---
Author Organization [facility] Address [address] [facility] 7t [place] [address] Care Team Providers Care Commercial Baker Helper Name Role Phone Gordon Velez MD Primary Care Prov ider Encounter Details Date Type Department Care Team (Late Contact Info) Description 02/11/2023 Orders Only [facility] [address] [place] [address] Shannan Greene LPN Social History Tobacco Use Types Packs/Day Years [...] Info) Description 11/16/2024 11:15 AM EDT Telemedicine [facility] [address] [place], [place] [phone] Gordon Velez MD [address] [place] [address] documented as of this encounter Visit Diagnoses Not on filedocumented in this encounter Care Teams Commercial Baker Helper Relationship Specialty Start Date End Date Gordon Velez MD [address] [place] [address] PCP - General Internal Medicine 11/30/19 documented as of this encounter
--- OUTSIDE RECORDS SUMMARY | 2024-10-27 13:21 | XMS_ITS | Encounter Summary ---
Author Organization [employer] Address [address] [facility] 7t [place] [address] Care Team Providers Care Deputy Treasurer Name Role Phone Gordon Velez MD Primary Care Prov ider Reason for Visit * Reason Onset Date Comments Appointment Request 07/10/2023 Encounter Details Date Type Department Care Team ([facility] st Contact Info) Description 07/10/2023 Telephone [facility] [address] [place] [address] Gordon Velez MD [address] [place], [place] [phone] Appointment Request Social History Tobacco Use Types Packs/Day Years Used Date Smoking Tobacco: Every Day Cigarettes Smokeless Tobacco: Never Alcohol Use Standard Drinks/Week Comments Never 0 (1 standard drink = 0.6 oz pur e alcohol) Housing Stability Answer Date Recorded What is your housing situation today? I have wanda ibrahim 05/14/[address] you [...] encounter Miscellaneous Notes * Telephone Encounter - Carlos Katz - 07/10/2023 11:34 AM EST Tc from patient requesting a call back to reschedule appt on 07/09 for a Pap documented in this encounter Plan of Treatment Upcoming Encounters Date Type Department Care Team (Late st Contact Info) Description 11/16/2024 11:15 AM EDT Telemedicine [facility] MED [facility] PEDS [address] [place] [address] Gordon Velez MD [address] [place] [address] documented as of this encounter Visit Diagnoses Not on filedocumented in this encounter Care Teams Deputy Treasurer Relationship Specialty Start Date End Date Gordon Velez MD [address] [place] [address] PCP - General Internal Medicine 11/30/19 documented as of this encounter
--- OUTSIDE RECORDS SUMMARY | 2024-10-27 13:21 | XMS_ITS | Encounter Summary ---
Author Organization [employer] Address [address] [facility] 7t [place] [address] Care Team Providers Care Metal Finish Inspector Name Role Phone Gordon Velez MD Primary Care Prov ider Encounter Details Date Type Department Care Team ([facility] st Contact Info) Description 10/07/2024 Orders Only [facility] [address] [place], [place] [phone] Gordon Velez MD [address] [place] [address] Type 2 diabetes mellitus without complication, without long-term current use of insulin ([facility]) Social History Tobacco Use Types Packs/Day Years [...] Info) Description 11/16/2024 11:15 AM EDT Telemedicine [facility] [address] [place] [address] Gordon Velez MD [address] [place] [address] documented as of this encounter Visit Diagnoses Diagnosis Type 2 diabetes mellitus without complication, without long-term current use of insulin ([facility]) documented in this encounter Additional Health Concerns Assessment Noted Time PHQ-9 Depression Total Score: 18 024 1:56 PM EDT documented as of this encounter Care Teams Metal Finish Inspector Relationship Specialty Start Date End Date Gordon Velez MD [address] [place] [address] PCP - General Internal Medicine 11/30/19 documented as of this encounter
--- OUTSIDE RECORDS SUMMARY | 2024-10-27 13:21 | XMS_ITS | Clinical Summary ---
Author Organization [facility] Address [address] [place] [address] Phone Care Team Providers Care Bisque Finisher Name Role Phone Gordon Velez Primary Care Provide r Medications albuterol HFA (PROAIR HFA ; PROVENTIL HFA ; VENTOLIN HFA) 90 mcg/actuation inhaler Inhale 2 Puffs into the lungs every 6 hours as needed. Active aspirin 81 mg EC tablet Take 81 mg by mouth daily. Active atorvastatin (LIPITOR) 40 mg tablet Take 40 mg by mouth daily. Active calcium carbonate/vitam in D3 (CALCIUM 500 + D ORAL) Take 500 mg by mouth 2 times daily. Active camphor-methyl salicyl-menthoL (Pain Relieving,cam-m Terrimarge-ment,) adhesive patch,medicated Apply 15 Patches topically as needed. Active cholecalciferol (VITAMIN D-3) 25 mcg (1,000 unit) tablet Take 1,000 Units by mouth daily. Active clonazePAM (KlonoPIN) 1 mg tablet Take 1 mg by mouth 2 times daily as needed. Active dextran 70-hypromellose (GenTeal Tears Mild) 0.1-0.3 % ophthalmic solution apply 0.1-0.3 Drops to the eye 3 times daily. Active fluticasone propionate (FLONASE) 50 mcg/actuation nasal spray 1 Malone by Each Nare route 2 times daily. Active fluticasone furoate-vilante roL (Breo Ellipta) 200-25 mcg/dose inhaler Inhale 200 mcg into the lungs daily. Active gabapentin (NEURONTIN) 800 mg tablet Take 800 mg by mouth 3 times daily. Active glipiZIDE (GLUCOTROL) 5 mg tablet Take 5 mg by mouth 2 times daily (before meals). Active ipratropium HFA (ATROVENT HFA) 17 mcg/actuation inhaler Inhale 2 Puffs into the lungs every 6 hours. Active levothyroxine (SYNTHROID, LEVOTHROID) 150 mcg tablet Take 150 mcg by mouth daily. Active loratadine (CLARITIN) 10 mg tablet Take 10 mg by mouth daily. Active nabumetone (RELAFEN) 750 mg tablet Take 750 mg by mouth 2 times daily. Active terbinafine (LamISIL) 250 mg tablet Take 250 mg by mouth daily. Active traMADoL (ULTRAM) 50 mg tablet Take 50 mg by mouth every 6 hours as needed. Active PEG 3350 (GLYCOLAX/ELMA AX) 4 gram packet Take 17 g by mouth daily. Active Active Problems Problem Noted Date Diagnosed Date T2DM (type 2 diabetes mellitus) 06/01/2024 Hyperlipidemia associated with type 2 diabetes alcides mitchell 06/01/2024 Social History Tobacco Use Types Packs/Day Years Used Date Smoking Tobacco: Never Assessed Comments Unknown Sex and Gender Information Value Date Recorded Sex Assigned at Not on file Legal Sex Female 12:52 PM EST Gender Identity Not on file Sexual Orientation Not on file Plan of Treatment Health Maintenance Due Date Last Done Comments Breast Cancer Screening 1960 Diabetes: Annual GFR (Glomer ular Filtration Rate) 1960 Diabetes: Annual Foot Exam 10/11/1969 Diabetes: Annual Retina Eye Exam 10/11/1969 DTaP,Tdap,and Td Vaccines (1 - Tdap) 10/11/1978 Pneumococcal Vaccine: 50+ Ye ars (1 of 2 - PCV) 10/11/1978 Pneumococcal Vaccine: Pediat rics (0 to 5 Years) and At-Risk Patients (6 to 64 Years) (1 of 2 - PCV) 10/11/1978 Cervical Cancer Screening: P ap Smear 10/11/1980 Zoster Vaccines (1 of 2) 10/11/2009 Cholesterol Screening (Lipid Panel) 06/19/2022 Colorectal Cancer Screening: Colonoscopy 06/19/2022 Depression Screening 06/19/2022 Hepatitis C Screening 06/19/2022 Osteoporosis Screening (Bone Density Screening) 06/19/2022 Social Influencers of Health Screening 06/19/2022 COVID-19 Vaccine (1 - 2023-2 5 season) 2024 Influenza Vaccine (#1) 2024 Diabetes: Annual Urine Albumin-Creatinine Ratio (uACR) 06/01/2024 Diabetes: Blood Sugar Contro l Test (HGBA1C) 06/01/2024 Falls Risk Assessment 10/11/2024 RSV Immunization Adult Patie nts (1 - 1-dose 75+ series) 10/11/2034 HIB Vaccines Aged Out No longer eligi ble based on patient's age to complete this topic HPV Vaccines Aged Out No longer eligi ble based on patient's age to complete this topic Hepatitis A Vaccines Aged Out No long er eligible based on patient's age to complete this topic Hepatitis B Vaccines Aged Out No long er eligible based on patient's age to complete this topic IPV Vaccines Aged Out No longer eligi ble based on patient's age to complete this topic MMR Vaccines Aged Out No longer eligi ble based on patient's age to complete this topic Meningococcal ACWY Vaccine Aged Out N o longer eligible based on patient's age to complete this topic Meningococcal B Vaccine Aged Out No l onger eligible based on patient's age to complete this topic RSV Immunization Patients Un andres 20 months Aged Out No longer eligible b ased on patient's age to complete this topic Varicella Vaccines Aged Out No longer eligible based on patient's age to complete this topic Insurance MEDICAID - [place] Care Teams Bisque Finisher Relationship Specialty Start Date End Date Gordon Velez [address] [place] [address] PCP - General Internal Medicine 05/15/24
--- OUTSIDE RECORDS SUMMARY | 2024-10-27 13:22 | XMS_ITS | Clinical Summary ---
Author Organization [facility] Address [address] [place] [address] Care Team Providers Care Production Hand Name Role Phone Verna Michael Mcclain Primary Care Provider + [phone] Allergies No known active allergies Medications traMADoL (ULTRAM) 50 mg tablet Take 50 mg by mouth every 6 hours as needed. 1 Active Proventil HFA 90 mcg/actuation inhaler INHALE TWO PUFFS EVERY 6 HOURS NEEDED 0 Active Breo Ellipta 200-25 mcg/dose blister with device INHALE ONE PUFF DAILY AT THE SAME TIME EVERY DAY 0 Active Narcan 4 mg/actuation nasal spray FOR SUSPECTED OPIOID OVERDOSE. SPRAY 0.1mL IN ONE NOSTRIL. REPEAT IN ALTERNATE NOSTRIL 2-3 MINUTES IF NEEDED. SEEK MEDICAL ATTENTION IMMEDIA 0 Active clonazePAM (KlonoPIN) 0.5 mg tablet TAKE ONE TABLET BY MOUTH EVERY MORNING NEEDED. 1 Active atorvastatin (LIPITOR) 40 mg tablet Take 40 mg by mouth daily. 1 Active Januvia 100 mg tablet Take 100 mg by mouth daily. 1 Active aspirin 81 mg EC tablet Take 81 mg by mouth daily. 1 Active glipiZIDE (GLUCOTROL) 5 mg tablet TAKE ONE TABLET TWICE DAILY BEFORE MEALS 0 Active loratadine (CLARITIN) 10 mg tablet TAKE ONE TABLET BY MOUTH EVERY DAY NEEDED FOR ALLERGY 1 Active clotrimazole (LOTRIMIN) 1% cream APPLY TO AFFECTED AREA(S) AND SURROUNDING AREA(S) TWICE DAILY IN THE MORNING AND EVENING 1 Active clonazePAM (KlonoPIN) 2 mg tablet Take 2 mg by mouth nightly as needed. 1 Active gabapentin (NEURONTIN) 800 mg tablet Take 800 mg by mouth 3 times a day. 0 Active Freestyle Lite test strips TEST BLOOD SUGAR FOUR TIMES DAILY. 1 Active fluticasone propionate (FLONASE) 50 mcg/actuation nasal spray USE ONE SPRAY IN EACH NOSTRIL TWICE DAILY 1 Active calcium carbonate (OS-KAMILLE) 500 mg calcium (1,250 mg) tablet Take 1 tablet by mouth 2 times a day. 1 Active senna 8.6 mg tablet TAKE TWO TABLETS BY MOUTH EVERY DAY NEEDED FOR CONSTIPATION 0 Active TRUEplus Lancets lancet 33 gauge TEST BLOOD SUGAR TWICE DAILY 1 Active buPROPion XL (WELLBUTRIN XL) 150 mg tablet TAKE ONE TABLET BY MOUTH EVERY MORNING WITH 300mg TABLET. 1 Active buPROPion XL (WELLBUTRIN XL) 300 mg tablet TAKE ONE TABLET BY MOUTH EVERY DAY DIRECTED WITH 150mg TABLET. 1 Active escitalopram (LEXAPRO) 20 mg tablet Take 20 mg by mouth daily. 0 Active ammonium lactate (AMLACTIN) 12 % cream APPLY TO THE AFFECTED AREA(S) THREE TIMES DAILY 0 Active levothyroxine (SYNTHROID, LEVOTHROID) 150 mcg tablet Take 150 mcg by mouth daily. 1 Active cholecalciferol (VITAMIN D3) 1,000 unit tablet Take 1,000 Units by mouth daily. 1 Active Active Problems No known active problems Social History Tobacco Use Types Packs/Day Years Used Date Smoking Tobacco: Every Day Smokeless Tobacco: Never Comments Unknown Sex and Gender Information Value Date Recorded Sex Assigned at Not on file Legal Sex Female 11:10 AM EDT Gender Identity Not on file Sexual Orientation Not on file Last Filed Vital Signs Vital Sign Reading Time Taken Comments Blood Pressure 112/64 12/07/2020 7:43 AM EDT Pulse 86 12/07/2020 7:43 AM EDT Temperature - - Respiratory Rate - - Oxygen Saturation - - Inhaled Oxygen Concentration - - Weight 70.3 kg (155 lb) 03/22/2021 10:47 AM EDT Height 157.5 cm (5' 2 ) 03/22/2021 10:47 AM EDT Body Mass Index 28.35 03/22/2021 10:47 AM EDT Plan of Treatment Health Maintenance Due Date Last Done Comments Cervical Cancer Screening 1959 Cologuard 1959 Colon Cancer Screening 1959 Colonoscopy 1959 FOBT / Fit Test 1959 HIV Screening 1959 HPV and Pap Smear 1959 Pap Smear 1959 Sigmoidoscopy 1959 Osteoporosis Screening 10/11/2009 Pneumococcal Vaccine: 50+ Years (1 of 1 - PCV) 10/11/2009 Zoster Vaccines (1 of 2) 10/11/2009 COVID-19 Vaccine (1 - 2023-2 5 season) 2024 Alcohol/Substance Use Screening 07/22/2024 Health Care Proxy Review 07/22/2024 Influenza Vaccine (Season Ended) 2025 08/29/2017, 05/31/2016 DTaP,Tdap,and Td Vaccines (3 - Td or Tdap) 02/12/2029 02/12/2019, 09/04/2014, 09/04/2014 RSV Vaccine (60+ years old a nd patients) (1 - 1-dose 75+ series) 10/11/2034 Hepatitis B Vaccines Aged Out No long er eligible based on patient's age to complete this topic Insurance [facility] [place] [id number] Care Teams Production Hand Relationship Specialty Start Date End Date Michael Gillespie [address] [place] [id number] PCP - General Internal Medicine 11/24/20
--- OUTSIDE RECORDS SUMMARY | 2024-10-27 13:22 | XMS_ITS | Encounter Summary ---
Author Organization [employer] Address [address] [facility] 7t [place] [address] Care Team Providers Care Federal Law Clerk Name Role Phone Gordon Velez MD Primary Care Prov ider Reason for Visit * Reason Onset Date Comments Medication Question 07/31/2024 Encounter Details Date Type Department Care Team ([facility] st Contact Info) Description 07/31/2024 Telephone [facility]INE [address] [place] [address] Gordon Velez MD [address] [place], [place] [phone] Medication Question Social History Tobacco Use Types Packs/Day Years [...] encounter Miscellaneous Notes * Telephone Encounter - AUDI Woodard - 08/03/2024 1:48 PM EST Has upcoming appt scheduled with PCP this week on 08/07/24. Sending as FYI. Bright. * Telephone Encounter - Vazquez Thao - 07/31/2024 10:14 AM EST Tc from pt requesting box of ensure nutritution shake (Vanilla). documented in this encounter Plan of Treatment Upcoming Encounters Date Type Department Care Team (Late st Contact Info) Description 11/16/2024 11:15 AM EDT Telemedicine [facility] MED & PEDS [address] [place], [place] [phone] Gordon Velez MD [address] [place] [address] documented as of this encounter Visit Diagnoses Not on filedocumented in this encounter Additional Health Concerns Assessment Noted Time PHQ-9 Depression Total Score: 18 024 1:56 PM EDT documented as of this encounter Care Teams Federal Law Clerk Relationship Specialty Start Date End Date Gordon Velez MD [address] [place] [id number] PCP - General Internal Medicine 11/30/19 documented as of this encounter
--- OUTSIDE RECORDS SUMMARY | 2024-10-27 13:22 | XMS_ITS | Encounter Summary ---
Author Organization [employer] Address [address] [facility] 7[address] [place] [address] Care Team Providers Care Aircraft Sheet Metal Mechanic Name Role Phone Gordon Velez MD Primary Care Prov ider Reason for Visit * Reason Onset Date Comments Med Refill 06/02/2024 Encounter Details Date Type Department Care Team (Late st Contact Info) Description 06/02/2024 Telephone [facility] MEDICINE [address] [place] [address] Gordon Velez MD [address] [place], [place] [phone] Med Refill Social History Tobacco Use Types [...] encounter Miscellaneous Notes * Telephone Encounter - Alec Moran - 06/02/2024 10:24 AM EST TC from pt requesting medication refill. Medications needing refill : traMADol (Ultram) 50 MG tablet To be sent to: [facility] - [place], [place] - [address] [place] [address] documented in this encounter Plan of Treatment Upcoming Encounters Date Type Department Care Team (Late st Contact Info) Description 11/16/2024 11:15 AM EDT Telemedicine [facility] & PEDS [address] [place] [address] Gordon Velez MD [address] [place] [address] documented as of this encounter Visit Diagnoses Not on filedocumented in this encounter Additional Health Concerns Assessment Noted Time PHQ-9 Depression Total Score: 18 024 1:56 PM EDT documented as of this encounter Care Teams Aircraft Sheet Metal Mechanic Relationship Specialty Start Date End Date Gordon Velez MD [address] [place] [address] PCP - General Internal Medicine 11/30/19 documented as of this encounter
--- OUTSIDE RECORDS SUMMARY | 2024-10-27 13:22 | XMS_ITS | Encounter Summary ---
Author Organization [employer] Address [address] [facility] 7t [place] [address] Care Team Providers Care Gear Finisher Name Role Phone Gordon Velez MD Primary Care Prov ider Reason for Visit * Reason Onset Date Comments Appointment Request 09/16/2023 Encounter Details Date Type Department Care Team ([facility] st Contact Info) Description 09/16/2023 Telephone [facility] MEDICINE [address] [place] [address] Gordon Velez MD [address] [place], [place] [phone] Appointment Request Social History Tobacco Use Types [...] Patient Health Questionnaire-2 Score 0 08/14/2022 Comments No Sex and Gender Information Value Date Recorded Sex Assigned at Female 05/21/2022 10:16 AM EDT Legal Sex Female 10:16 AM EDT Gender Identity Female 05/21/2022 10:16 AM EDT Sexual Orientation Straight 05/21/2022 10 :16 AM EDT documented as of this encounter Miscellaneous Notes * Telephone Encounter - Brandi Levine RN - 09/17/2023 2:57 PM EST Spoke with CNM regarding order. CNM states order from 07/2023 for left breast mammo should have beensent to dx specialist. Please advise if order was scheduled for mammo. * Telephone Encounter - Macario Segura - 09/16/2023 9:17 AM EST Tc from pt was advised by pcp to get mammogram. Please contact pt if any questions: [phone] documented in this encounter Plan of Treatment Upcoming Encounters Date Type Department Care Team (Late st Contact Info) Description 11/16/2024 11:15 AM EDT Telemedicine [facility] MED & PEDS [address] [place] [address] Gordon Velez MD [address] [place] [address] documented as of this encounter Visit Diagnoses Not on filedocumented in this encounter Care Teams Gear Finisher Relationship Specialty Start Date End Date Gordon Velez MD [address] [place] [address] PCP - General Internal Medicine 11/30/19 documented as of this encounter
--- OUTSIDE RECORDS SUMMARY | 2024-10-27 13:22 | XMS_ITS | Encounter Summary ---
Author Organization [employer] Address [address] [facility] 7[address] [place] [address] Care Team Providers Care Electronic Operator Name Role Phone Gordon Velez MD Primary Care Prov ider Reason for Visit * Reason Onset Date Comments Referral 09/24/2023 Encounter Details Date Type Department Care Team (Late st Contact Info) Description 09/24/2023 Telephone [facility] MEDICINE [address] [place] [address] Gordon Velez MD [address] [facility] [address] [place], [place] [phone] Referral Social History Tobacco Use Types Packs/Day Years [...] the past 12 months, has t he [employer] gas, oil or water company threatened to [...] Telephone Encounter - Brandi Levine RN - 09/24/2023 1:43 PM EST Pt was referred last month to GI at [facility]. Pt will be contacted when appts become available from their office. * Telephone Encounter - Macario Segura - 09/24/2023 12:52 PM EST TC from pt requesting new referral : DATE: N/A TIME:N/A Address: [address] [place] [address] [address] Floor, [place] [address] Visits: N/A Facility Name: [facility] Type of Specialist: Gastroenterologists Phone # : [phone] Pt is requesting referral for a colonoscopy stated no concerns. If any questions you can contact pt at [phone] documented in this encounter Plan of Treatment Upcoming Encounters Date Type Department Care Team (Late st Contact Info) Description 11/16/2024 11:15 AM EDT Telemedicine [facility] MED & PEDS [address] [place] [address] Gordon Velez MD [address] [place] [address] documented as of this encounter Visit Diagnoses Not on filedocumented in this encounter Care Teams Electronic Operator Relationship Specialty Start Date End Date Gordon Velez MD [address] [place] [address] PCP - General Internal Medicine 11/30/19 documented as of this encounter
--- OUTSIDE RECORDS SUMMARY | 2024-10-27 13:22 | XMS_ITS | Encounter Summary ---
Author Organization [employer] [facility] Address [address] [facility] [address] [place] [address] Care Team Providers Care Reserve Officer Name Role Phone Gordon Velez MD Primary Care Prov ider Encounter Details Date Type Department Care Team (Late st Contact Info) Description 11/21/2022 Orders Only [facility] MED & PEDS [address] [place], [place] [phone] Gordon Velez MD [address] [place], [place] [phone] Social History Tobacco Use Types Packs/Day Years [...] Info) Description 11/16/2024 11:15 AM EDT Telemedicine [facility] MED & PEDS [address] [place], [place] [phone] Gordon Velez MD [address] [place], [place] [phone] documented as of this encounter Visit Diagnoses Not on filedocumented in this encounter Care Teams Reserve Officer Relationship Specialty Start Date End Date Gordon Velez MD [address] [place] [id number] PCP - General Internal Medicine 11/30/19 documented as of this encounter
--- OUTSIDE RECORDS SUMMARY | 2024-10-27 13:22 | XMS_ITS | Encounter Summary ---
Author Organization [employer] Address [address] [facility] [address] 7[address] [place] [address] Care Team Providers Care Clock Assembler Name Role Phone Gordon Velez MD Primary Care Prov ider Encounter Details Date Type Department Care Team (Late st Contact Info) Description 11/08/2023 Orders Only [facility] MEDICINE [address] [place] [address] Provider, MD Marito Social History Tobacco Use Types Packs/Day Years [...] Upcoming Encounters Date Type Department Care Team ([facility] st Contact Info) Description 11/16/2024 11:15 AM EDT Telemedicine [facility] MED [facility] PEDS [address] [place] [address] Gordon Velez MD [address] [place] [address] documented as of this encounter Procedures Procedure Name Priority Date/Time Associated Diagnosis Comments HM COLONOSCOPY Routine 11/24/2015 12:21 PM EDT documented in this encounter Results * Hm Colonoscopy (11/24/2015 12:21 PM EDT) Historical Provider HEALTH MAINTENANCE Final Result documented in this encounter Visit Diagnoses Not on filedocumented in this encounter Care Teams Clock Assembler Relationship Specialty Start Date End Date Gordon Velez MD [address] [place] [address] PCP - General Internal Medicine 11/30/19 documented as of this encounter
--- OUTSIDE RECORDS SUMMARY | 2024-10-27 13:22 | XMS_ITS | Referral Summary ---
Author Organization [facility] Address [address] [place] [address] Care Team Providers Care Control Electrician Name Role Phone Verna Michael Mcclain Primary Care Provider + [phone] Allergies No known active allergies Medications traMADoL [...] 03/22/2021 10:47 AM EDT Plan of Treatment Not on file Insurance [facility] [place] [id number] Care Teams Control Electrician Relationship Specialty Start Date End Date Michael Gillespie [address] [place] [address] PCP - General Internal Medicine 11/24/20
--- OUTSIDE RECORDS SUMMARY | 2024-10-27 13:22 | XMS_ITS | Encounter Summary ---
Author Organization [employer] [facility] Address [address] [facility] 7 [place] [address] Care Team Providers Care Manufacturer Name Role Phone Gordon Velez MD Primary Care Prov ider Encounter Details Date Type Department Care Team (Late st Contact Info) Description 07/10/2022 Orders Only [facility] [address] [place] [address] Katey Campos LPN Social History Tobacco Use Types Packs/Day [...] Info) Description 11/16/2024 11:15 AM EDT Telemedicine [facility] [address] [place] [address] Gordon Velez MD [address] [place] [address] documented as of this encounter Procedures Procedure Name Priority Date/Time Associated Diagnosis Comments THYROGLOBULIN, TUMOR MARKER W/REFLEX Routine 11/13/2022 11:29 AM EDT TSH Routine 11/13/2022 11:29 AM EDT T4, FREE Routine 11/13/2022 11:29 AM EDT THYROGLOBULIN, TUMOR MARKER W/REFLEX Routine 11/08/2022 1:14 PM EDT TSH Routine 11/08/2022 1:14 PM EDT T4, FREE Routine 11/08/2022 1:14 PM EDT CREATININE, SERUM Routine 10/22/2022 10: 13 AM EDT SED RATE BY MODIFIED WESTERGREN Routine 10/22/2022 10:13 AM EDT C-REACTIVE PROTEIN Routine 10/22/2022 10 :13 AM EDT ALT Routine 10/22/2022 10:13 AM EDT AST Routine 10/22/2022 10:13 AM EDT DRUG MONITOR, PANEL 1, SCREEN, URINE Routine 10/22/2022 10:12 AM EDT TRAMADOL, URINE Routine 10/22/2022 10:12 AM EDT CBC WITH AUTO DIFFERENTIAL Routine 09/27/2022 2:11 PM EST COMPREHENSIVE METABOLIC PANEL Routine 09/27/2022 2:11 PM EST documented in this encounter Results * (ABNORMAL) Thyroblobulin, Tumor Marker w/Reflex (11/13/2022 11:29 AM EDT) Thyroglobulin Antibody <1 <=1 IU/mL [facility] Comment:This Thyroglobulin a ntibody test was performedusing the Agustín Timbo Chemiluminescent method.Values obtained from different assay methods cannot beused interchangeably. Thyroglobulin antibody levels,regardless of value, should not be interpreted asabsolute evidence of the presence or absence ofdisease. Thyroglobulin, LC/MS/MS TNP [facility] Thyroglobulin Level 0.5(A) ng/mL [facility] Comment:Reference Range: Ath yrotic: <0.1 ng/mLReference range applies to differentiated thyroidcancer patients following treatment. The presence ofmeasurable thyroglobulin indicates the presence ofthyroglobulin-producing thyroid tissue. Clinicalcorrelation is advised.This Thyroglobulin test was performed using theJale[employer]aceuticals Timbo Chemiluminescent method. Valuesobtained from different assay methods cannot beused interchangeably. Thyroglobulin levels, regardlessof value, should not be interpreted as absoluteevidence of the presence or absence of disease.THIS TEST WAS PERFORMED AT:[employer] [id number] [place] [address]NEBCLSB W. MASON,MD,PHD 11/13/2022 11:2 9 AM EDT 11/13/2022 11:29 AM EDT [facility] External Provider LAB BLO OD ORDERABLES Final Result Performing Organization Address [facility] Co de Phone Number [facility] [address] [place] [phone] * (ABNORMAL) TSH (11/13/2022 11:29 AM EDT) Pathologist [facility] Thyroid Stimulating Hormone 24.45(H) 0.32 - 4.0 uIU/mL [facility] Comment:Note: A sustained TS H level above 2.5 uIU/mL may warrant further investigation. TSH 3rd Generation ([facility]) 11/13/2022 11:2 9 AM EDT 11/13/2022 11:29 AM EDT [facility] External Provider LAB BLO OD ORDERABLES Final Result Performing Organization Address City/[facility] Co de Phone Number [facility] [address] [place] [phone] * (ABNORMAL) T4, Free (11/13/2022 11:29 AM EDT) Free T4 (Free Thyroxine) <0.42(L) 0.71 - 1.85 ng/dL [facility] 11/13/2022 11:2 9 AM EDT 11/13/2022 11:29 AM EDT [facility] External Provider LAB BLO OD ORDERABLES Final Result Performing Organization Address City/[facility]/ZIP Co de Phone Number [facility] [address] [place] [address] [phone] * (ABNORMAL) Thyroblobulin, Tumor Marker w/Reflex (11/08/2022 1:14 PM EDT) Thyroglobulin Antibody <1 <=1 IU/mL [facility] Comment:This Thyroglobulin a ntibody test was performedusing the [employer]* Chemiluminescent method.Values obtained from different assay methods cannot beused interchangeably. Thyroglobulin antibody levels,regardless of value, should not be interpreted asabsolute evidence of the presence or absence ofdisease. Thyroglobulin, LC/MS/MS TNP [facility] Thyroglobulin Level 0.3(A) ng/mL [facility] Comment:Reference Range: Ath yrotic: <0.1 ng/mLReference range applies to differentiated thyroidcancer patients following treatment. The presence ofmeasurable thyroglobulin indicates the presence ofthyroglobulin-producing thyroid tissue. Clinicalcorrelation is advised.This Thyroglobulin test was performed using theP[employer]* Chemiluminescent method. Valuesobtained from different assay methods cannot beused interchangeably. Thyroglobulin levels, regardlessof value, should not be interpreted as absoluteevidence of the presence or absence of disease.THIS TEST WAS PERFORMED AT:[employer]/[address] [id number] [place] [address]NTUXYLKEDVIN REID MD,PHD 11/08/2022 1:14 PM EDT 11/08/2022 1:14 PM EDT [facility] External Provider LAB BLO OD ORDERABLES Final Result [facility] [address] [place] [address] [phone] * (ABNORMAL) TSH (11/08/2022 1:14 PM EDT) Thyroid Stimulating Hormone 8.44(H) 0.32 - 4.0 uIU/mL [facility] Comment:Note: A sustained TS H level above 2.5 uIU/mL may warrant further investigation. TSH 3rd Generation ([facility]) 11/08/2022 1:14 PM EDT 11/08/2022 1:14 PM EDT [facility] External Provider LAB BLO OD ORDERABLES Final Result Performing Organization Address [facility]/ZIP Co de Phone Number [facility] [address] [place] [address] [phone] * (ABNORMAL) T4, Free (11/08/2022 1:14 PM EDT) Free T4 (Free Thyroxine) <0.42(L) 0.71 - 1.85 ng/dL [facility] 11/08/2022 1:14 PM EDT 11/08/2022 1:14 PM EDT [facility] External Provider LAB BLO OD ORDERABLES Final Result Performing Organization Address City/[facility]/ZIP Co de Phone Number [facility] [address] [place] [address] [phone] * (ABNORMAL) Sed Rate by Modified Gabyren (10/22/2022 10:13 AM EDT) Erythrocyte Sedimentation Rate 26(H) 0 - 20 MM/HR [facility] Comment:Patients with polycy themia and many hemoglobin abnormalitiesmay have depressed sed rates whereas patients with anemiamay have elevated sed rates. 10/22/2022 10:1 3 AM EDT 10/22/2022 10:13 AM EDT [facility] External Provider LAB BLO OD ORDERABLES Final Result Performing Organization Address [facility] Co de Phone Number [facility] [address] [place] [phone] * (ABNORMAL) C-reactive Protein (10/22/2022 10:13 AM EDT) C Reactive Protein 1.98(H) < or = 0.50 mg/dL [facility] 10/22/2022 10:1 3 AM EDT 10/22/2022 10:13 AM EDT [facility] External Provider LAB BLO OD ORDERABLES Final Result Performing Organization Address [facility] Co de Phone Number [facility] [address] [place] [phone] * ALT (10/22/2022 10:13 AM EDT) Alanine Aminotransferase 18 0 - 31 U/L [facility] 10/22/2022 10:1 3 AM EDT 10/22/2022 10:13 AM EDT [facility] External Provider LAB BLO OD ORDERABLES Final Result Performing Organization Address [facility] Co de Phone Number [facility] [address] [place] [phone] * AST (10/22/2022 10:13 AM EDT) Aspartate Amino Transferase 20 5 - 31 U/L [facility] 10/22/2022 10:1 3 AM EDT 10/22/2022 10:13 AM EDT [facility] External Provider LAB BLO OD ORDERABLES Final Result Performing Organization Address [facility] Co de Phone Number [facility] [address] [place] [address] [phone] * Creatinine, Serum (10/22/2022 10:13 AM EDT) Creatinine, Serum 0.76 0.5 - 1.4 mg/dL [facility] Estimated Glomerular Filt Rate >60 [facility] Comment:NOTE: For -Am erican individuals, multiply the result by 1.210.Chronic Kidney Disease: Estimated GFR < 60 mL/min/1.93v4Yhwwoz Kidney Disease: Estimated GFR < 15 mL/min/1.73m2 10/22/2022 10:1 3 AM EDT 10/22/2022 10:13 AM EDT [facility] External Provider LAB BLO OD ORDERABLES Final Result [facility] [address] [place] [address] [phone] * Tramadol, urine (10/22/2022 10:12 AM EDT) Tramadol, Ur >[id number] [facility] Comment: Report Name ? Results Units Reference Range SiteDRUG MONITOR, TRAMADOL, QN, URINE ?[id number]: ? >14264 (H)ng/mL ? <100Tramadol: ?>13808 (H)ng/mL ? <100Tramadol Comments: ? See Tramadol Notes, LDT NotesDRUG MONITORING TEMPLATE ? [id number] and Comments:This drug testing is for medical treatment only.Analysis was performed as non-forensic testing andthese results should be used only by healthcareproviders to render diagnosis or treatment, or tomonitor progress of medical conditions.Tramadol Notes:Tramadol, Desmethyltramadol detected is consistent withthe use of the drug Tramadol.LDT Notes:Confirmation tests were developed and their analyticalperformance characteristics have been determined by[employer]. It has not been cleared or approvedby the FDA. This assay has been validated pursuant tothe CLIA regulations and is used for clinical purposes.Healthcare Providers needing Interpretation assistance,please contact us at [phone] ( )M- F, 8am to 10pm ESTSite InformationNL1:[employer] [id number] [place] [id number] Laboratory Director: Shekhar Pierre M.D. Desmethyltramadol, Ur >00810 [facility] 10/22/2022 10:1 2 AM EDT 10/22/2022 10:38 AM EDT [facility] External Provider LAB URI NE ORDERABLES Final Result [facility] [address] [place] [phone] * (ABNORMAL) Drug Monitoring, Panel 1, Screen, Urine (10/22/2022 10:12 AM EDT) Opiate Screen Urine Not Detected Not Detect [facility] Comment:Opiate cut-off is 30 0 ng/mL.Positive results are unconfirmed and should not be used fornon-medical purposes. Barbiturates, Urine Not Detected Not Detect [facility] Comment:Barbiturate cut-off is 200 ng/mL.Positive results are unconfirmed and should not be used fornon-medical purposes. Phencyclidine Screen Urine Not Detected Not Detect [facility] Comment:Phencyclidine cut-of f is 25 ng/mL.Positive results are unconfirmed and should not be used fornon-medical purposes. Amphetamine Screen Urine Not Detected Not Detect [facility] Comment:Amphetamine cut-off is 1000 ng/mL.Positive results are unconfirmed and should not be used fornon-medical purposes. Benzodiazepines Screen Urine POSITIVE(A) Not Detect [facility] Comment:Benzodiazepine cut-o ff is 200 ng/mL.Positive results are unconfirmed and should not be used fornon-medical purposes. Cocaine Screen Urine Not Detected Not Detect [facility] Comment:Cocaine cut-off is 3 00 ng/mL.Positive results are unconfirmed and should not be used fornon-medical purposes. Cannabinoid Screen Urine POSITIVE(A) Not Detect [facility] Comment:Cannabinoid cut-off is 50 ng/mL.Positive results are unconfirmed and should not be used fornon-medical purposes. FENTANYL URINE POSITIVE(A) Not Detect [facility] Comment:Fentanyl cut-off is 1 ng/mL.Positive results are unconfirmed and should not be used fornon-medical purposes. 10/22/2022 10:1 2 AM EDT 10/22/2022 10:34 AM EDT [facility] External Provider LAB URI NE ORDERABLES Final Result [facility] [address] [place] [phone] * (ABNORMAL) Comprehensive Metabolic Panel (09/27/2022 2:11 PM EST) Sodium 141 135 - 145 mmol/L [facility] Potassium 4.3 3.3 - 5.1 mmol/L [facility] Chloride 104 96 - 108 mmol/L [facility] Carbon Dioxide 30(H) 22 - 29 mmol/L [facility] Anion Gap 11(L) 12 - 20 [facility] Urea Nitrogen (BUN) 13 9 - 16 mg/dL [facility] Creatinine, Serum 0.73 0.5 - 1.4 mg/dL [facility] Creatinine Clr Calc Pharmacy 73.6 [facility] Comment:Provided height and weight: 157.48 cm,70.76 kg.eGFR (calculated from the MDRD study equation) and eCrCl(calculated from the Cockcroft-Gault equation) are based ondifferent parameters and may not yield comparable results.If eCrCl result is absurd, please check patient'sheight/weight. Estimated Glomerular Filt Rate >60 [facility] Comment:NOTE: For -Am erican individuals, multiply the result by 1.210.Chronic Kidney Disease: Estimated GFR < 60 mL/min/1.94f1Cldgiz Kidney Disease: Estimated GFR < 15 mL/min/1.73m2 Glucose 90 60 - 115 mg/dL [facility] Calcium 8.8 8.4 - 10.2 mg/dL [facility] Bilirubin, Total 0.4 0.0 - 1.0 mg/dL [facility] Aspartate Amino Transferase 25 5 - 31 U/L [facility] Alanine Aminotransferase 20 0 - 31 U/L [facility] Total Protein 6.7 6.5 - 8.0 g/dL [facility] Albumin Level 4.1 3.5 - 5.0 g/dL [facility] Alkaline Phosphatase 71 39 - 117 U/L [facility] 09/27/2022 2:11 PM EST 09/27/2022 2:14 PM EST us [facility] External Provider LAB BLO OD ORDERABLES Final Result [facility] [address] [place] [address] [phone] * (ABNORMAL) CBC auto differential (09/27/2022 2:11 PM EST) White Blood Count 7.5 4.8 - 10.8 X10*3/uL [facility] Red Blood Count 4.42 4.20 - 5.50 X10*6/uL [facility] Hemoglobin 12.4 12.0 - 16.0 g/dl [facility] Hematocrit 36.9(L) 37.0 - 47.0 % [facility] Mean Corpuscular Volume 83.5 80.0 - 98.0 fL [facility] Mean Corpuscular Hemoglobin 28.1 27.0 - 33.0 pg [facility] Mean Corpuscular HGB Conc 33.6 31.0 - 35.0 g/dl [facility] Red Cell Distribution Width 12.5 11.0 - 16.0 % [facility] Platelet Count 139(L) 160 - 400 X10*3/uL [facility] Mean Platelet Volume 12.0 9.4 - 12.3 fL [facility] Neutrophils Percent Auto 54.6 45 - 73 % [facility] Imm Gran Pct Auto 0.4 0.0 - 0.4 % [facility] Lymphocytes Percent Auto 28.7 20 - 40 % [facility] Monocytes Percent Auto 8.3 2 - 11 % [facility] Eosinophils Percent Auto 7.3(H) 0 - 4 % [facility] Basophils Percent Auto 0.7 0 - 2 % [facility] NRBC Pct Auto 0.0 0.0 - 0.2 /100WBC [facility] Neutrophils Absolute Auto 4.1 2.0 - 8.3 x10*3/uL [facility] Imm Gran Abs Auto 0.03 0.00 - 0.03 X10*3/uL [facility] Lymphocytes Absolute Auto 2.2 1.2 - 4.9 X10*3/uL [facility] Monocytes Absolute Auto 0.6 0.1 - 1.2 X10*3/uL [facility] Eosinophils Absolute Auto 0.6(H) 0.0 - 0.4 X10*3/uL [facility] Basophils Absolute Auto 0.1 0.0 - 0.2 X10*3/uL [facility] NRBC Abs Auto 0.000 0.0 - 0.012 X10*3/uL [facility] 09/27/2022 2:11 PM EST 09/27/2022 2:14 PM EST us [facility] External Provider LAB BLO OD ORDERABLES Final Result [facility] [address] [place] [phone] [phone] documented in this encounter Visit Diagnoses Not on filedocumented in this encounter Care Teams Manufacturer Relationship Specialty Start Date End Date Gordon Velez MD [address] [place] [phone] PCP - General Internal Medicine 11/30/19 documented as of this encounter
--- OUTSIDE RECORDS SUMMARY | 2024-10-27 13:22 | XMS_ITS | Encounter Summary ---
Author Organization [employer] Address [address] [facility] 7t [place] [address] Care Team Providers Care Power System Electrical Engineer Name Role Phone Gordon Velez MD Primary Care Prov ider Reason for Visit * Reason Comments Med Refill Encounter Details Date Type Department Care Team ([facility] st Contact Info) Description 07/30/2024 Refill [facility] MED & PEDS [address] [place], [place] [phone] Gordon Velez MD [address] [place] [address] Chronic midline low back pain without sciatica Social History Tobacco Use Types Packs/Day Years [...] encounter Miscellaneous Notes * Telephone Encounter - Paige Harris RN - 08/03/2024 10:09 AM EST Fyi. TC to pt regarding message below. Called via [email or web address] ID# [id number]. F/u with PCP Re: pain scheduled for 08/07/24 @10:30am. * Telephone Encounter - AUDI Woodard - 07/31/2024 5:18 PM EST Last med refill on 07/07/24 following televisit for hip pain. 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 Will defer refill until PCP returns. She should be seen for an appt if pain is worsening. Thank you! documented in this encounter Plan of Treatment Upcoming Encounters Date Type Department Care Team (Late st Contact Info) Description 11/16/2024 11:15 AM EDT Telemedicine [facility] MED & PEDS [address] [place] [address] Gordon Velez MD [address] [place] [address] documented as of this encounter Visit Diagnoses Diagnosis Chronic midline low back pain without sciatica documented in this encounter Additional Health Concerns Assessment Noted Time PHQ-9 Depression Total Score: 18 024 1:56 PM EDT documented as of this encounter Care Teams Power System Electrical Engineer Relationship Specialty Start Date End Date Gordon Velez MD [address] [place] [address] PCP - General Internal Medicine 11/30/19 documented as of this encounter
--- OUTSIDE RECORDS SUMMARY | 2024-10-27 13:22 | XMS_ITS | Encounter Summary ---
Author Organization [employer] Address [address] [facility] 7t [place] [address] Care Team Providers Care Adobe Ball Mixer Name Role Phone Gordon Velez MD Primary Care Prov ider Reason for Visit * Reason Onset Date Comments Mamogram Order 05/15/2024 Encounter Details Date Type Department Care Team ([facility] st Contact Info) Description 05/15/2024 Telephone [facility] [address] [place] [address] Gordon Velez MD [address] [place], [place] [phone] Mamogram Order Social History Tobacco Use Types Packs/Day Years [...] encounter Miscellaneous Notes * Telephone Encounter - Macario Segura - 05/15/2024 9:06 AM EDT Tc from pt requesting order for mammogram. If any questions you can contact pt at [phone]. (Surinamese Speaker) documented in this encounter Plan of Treatment Upcoming Encounters Date Type Department Care Team (Late st Contact Info) Description 11/16/2024 11:15 AM EDT Telemedicine [facility] MED & PEDS [address] [place] [address] Gordon Velez MD [address] [place] [address] documented as of this encounter Visit Diagnoses Not on filedocumented in this encounter Additional Health Concerns Assessment Noted Time PHQ-9 Depression Total Score: 18 024 1:56 PM EDT documented as of this encounter Care Teams Adobe Ball Mixer Relationship Specialty Start Date End Date Gordon Velez MD [address] [place] [address] PCP - General Internal Medicine 11/30/19 documented as of this encounter
--- OUTSIDE RECORDS SUMMARY | 2024-10-27 13:22 | XMS_ITS | Encounter Summary ---
Author Organization [employer] Address [address] [facility] 7t [place] [address] Care Team Providers Care International First Officer Name Role Phone Gordon Velez MD Primary Care Prov ider Encounter Details Date Type Department Care Team ([facility] st Contact Info) Description 08/21/2023 Orders Only [facility] MED & PEDS [address] [place], [place] [phone] Gordon Velez MD [address] [place] [address] Social History Tobacco Use Types Packs/Day Years [...] Info) Description 11/16/2024 11:15 AM EDT Telemedicine [facility] MED & PEDS [address] [place] [address] Gordon Velez MD [address] [place] [address] documented as of this encounter Visit Diagnoses Not on filedocumented in this encounter Care Teams International First Officer Relationship Specialty Start Date End Date Gordon Velez MD [address] [place] [address] PCP - General Internal Medicine 11/30/19 documented as of this encounter
--- OUTSIDE RECORDS SUMMARY | 2024-10-27 13:22 | XMS_ITS | Encounter Summary ---
Author Organization [employer] Address [address] [facility] 7 [place] [address] Care Team Providers Care Groover And Turner Name Role Phone Gordon Velez MD Primary Care Prov ider Reason for Visit * Reason Onset Date Comments Referral 09/10/2023 Encounter Details Date Type Department Care Team ([facility] st Contact Info) Description 09/10/2023 Telephone [facility] MED & PEDS [address] [place] [address] Gordon Velez MD [address] [place] [address] Referral Social History Tobacco Use Types Packs/Day [...] Telephone Encounter - Brandi Levine RN - 09/11/2023 10:02 AM EST Placed call to pt regarding message below. Pt states Mammo can be sent to [facility] women[facility]. Ordersent as requested. Pt then stated needing a referral to [facility] eye care for routine DM eye exam as pt has not had one in a while. Pt advised of wait list but will be contacted once schedule opens. Pt agrees with plan. Referral placed. * Telephone Encounter - Nickie Cheney - 09/10/2023 9:18 AM EST Tc from pt requesting a referral to get a mammogram done. Pt is also requesting for eye referral flavia sent to [facility]. States she is not able to make an appointment due to office not having a referral. documented in this encounter Plan of Treatment Upcoming Encounters Date Type Department Care Team (Late st Contact Info) Description 11/16/2024 11:15 AM EDT Telemedicine [facility] CH[facility] MED & PEDS [address] [place] [address] Gordon Velez MD [address] [place] [address] documented as of this encounter Visit Diagnoses Diagnosis Type 2 diabetes mellitus without complication, without long-term current use of insulin ([facility]) documented in this encounter Care Teams Groover And Turner Relationship Specialty Start Date End Date Gordon Velez MD [address] [place] [phone] PCP - General Internal Medicine 11/30/19 documented as of this encounter
--- OUTSIDE RECORDS SUMMARY | 2024-10-27 13:22 | XMS_ITS | Encounter Summary ---
Author Organization [employer] Address 75 [facility] 7t [place] [address] Care Team Providers Care Senior Systems Architect Name Role Phone Gordon Velez MD Primary Care Prov ider Reason for Visit * Reason Comments Med Refill Encounter Details Date Type Department Care Team (Late st Contact Info) Description 01/31/2024 Refill [facility] MED[facility] [address] [place] [address] Gordon Velez MD [address] [place], [place] [phone] Severe persistent asthma without complication Social History Tobacco Use Types Packs/Day Years [...] the past 12 months, has t he [employer] 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
--- OUTSIDE RECORDS SUMMARY | 2024-10-27 13:22 | XMS_ITS | Encounter Summary ---
Author Organization [employer] Address 75 [facility] 7t [place] [address] Care Team Providers Care Secure Software Assessor Name Role Phone Gordon Velez MD Primary Care Prov ider Encounter Details Date Type Department Care Team ([facility] st Contact Info) Description 05/13/2024 Orders Only [facility]EDS [address] [place], [place] [phone] Gordon Velez MD [address] [place] [address] Social History Tobacco Use Types Packs/Day Years [...] Upcoming Encounters Date Type Department Care Team ([facility] st Contact Info) Description 11/16/2024 11:15 AM EDT Telemedicine [facility] MED [facility]EDS [address] [place] [address] FamGordon Salas MD [address] [place] [address] documented as of this encounter Procedures Procedure Name Priority Date/Time Associated Diagnosis Comments TSH Routine 05/13/2024 2:24 PM EDT T4, FREE Routine 05/13/2024 2:24 PM EDT documented in this encounter Results * T4, Free (05/13/2024 2:24 PM EDT) Free T4 (Free Thyroxine) 0.98 0.71 - 1.85 ng/dL [facility] 05/13/2024 2:24 PM EDT 05/13/2024 5:31 PM EDT us Generic External Data Provider LAB BLOOD ORDERAB LES Final Result [facility] [address] [place] [address] [phone] * (ABNORMAL) TSH (05/13/2024 2:24 PM EDT) Thyroid Stimulating Hormone 0.20(L) 0.32 - 4.0 uIU/mL [facility] Comment:TSH 3rd Generation ( [facility]) 05/13/2024 2:24 PM EDT 05/13/2024 5:31 PM EDT us Generic External Data Provider LAB BLOOD ORDERAB LES Final Result [facility] [address] [place] [address] [phone] documented in this encounter Visit Diagnoses Not on filedocumented in this encounter Additional Health Concerns Assessment Noted Time PHQ-9 Depression Total Score: 18 024 1:56 PM EDT documented as of this encounter Care Teams Secure Software Assessor Relationship Specialty Start Date End Date Gordon Velez MD [address] [place] [id number] PCP - General Internal Medicine 11/30/19 documented as of this encounter
--- OUTSIDE RECORDS SUMMARY | 2024-10-27 13:22 | XMS_ITS | Encounter Summary ---
Author Organization [employer] Address 75 [facility] 7 [place] [address] Care Team Providers Care Materials Engineer Name Role Phone Gordon Velez MD Primary Care Prov ider Reason for Visit * Reason Onset Date Comments PT1 02/06/2023 Encounter Details Date Type Department Care Team ([facility] st Contact Info) Description 02/06/2023 Telephone [facility] MED & PEDS [address] [place] [address] Gordon Velez MD [address] [place] [address] PT1 Social History Tobacco Use Types Packs/Day Years [...] encounter Miscellaneous Notes * Telephone Encounter - Nickie Cheney - 02/06/2023 1:26 PM EDT Tc from pt requesting PT1 Date: 02/21/23 Time: 12:15 Address: [address] [place] [address] Specialty: endocrinology Director Of Online Education: yes Wheelchair: no, cane documented in this encounter Plan of Treatment Upcoming Encounters Date Type Department Care Team (Late st Contact Info) Description 11/16/2024 11:15 AM EDT Telemedicine [facility] MED & PEDS [address] [place] [address] Gordon Velez MD [address] [place] [address] documented as of this encounter Visit Diagnoses Not on filedocumented in this encounter Care Teams Materials Engineer Relationship Specialty Start Date End Date Gordon Velez MD [address] [place] [address] PCP - General Internal Medicine 11/30/19 documented as of this encounter
--- OUTSIDE RECORDS SUMMARY | 2024-10-27 13:22 | XMS_ITS | Encounter Summary ---
Author Organization [employer] [facility] Address 75 [facility] 7t [place] [address] Care Team Providers Care Coo Name Role Phone Gordon Velez MD Primary Care Prov ider Encounter Details Date Type Department Care Team ([facility] Contact Info) Description 07/18/2022 Telephone [facility] MED & PEDS [address] [place], [place] [phone] Gordon Velez MD [address] [place], [place] [phone] Social History Tobacco Use Types Packs/Day Years Used Date Smoking Tobacco: Never Assessed Comments Unknown Sex and Gender Information Value Date Recorded Sex Assigned at Female 05/21/2022 10:16 AM EDT Legal Sex Female 10:16 AM EDT Gender Identity Female 05/21/2022 10:16 AM EDT Sexual Orientation Straight 05/21/2022 10 :16 AM EDT documented as of this encounter Miscellaneous Notes * Telephone Encounter - Kasandra Vidal - 07/18/2022 12:36 PM EST tc from pt calling to find out status of boost supplements. Please call pt to clarify . documented in this encounter Plan of Treatment Upcoming Encounters Date Type Department Care Team (Late Contact Info) Description 11/16/2024 11:15 AM EDT Telemedicine [facility] MED [facility] PEDS [address] [place], [place] [phone] Gordon Velez MD [address] [place] [address] documented as of this encounter Visit Diagnoses Not on filedocumented in this encounter Care Teams Coo Relationship Specialty Start Date End Date Gordon Velez MD [address] [place] [phone] PCP - General Internal Medicine 11/30/19 documented as of this encounter
--- OUTSIDE RECORDS SUMMARY | 2024-10-27 13:22 | XMS_ITS | Encounter Summary ---
Author Organization [employer] Address 75 [facility] 7t [place] [address] Care Team Providers Care Confectionery Maker Name Role Phone Gordon Velez MD Primary Care Prov ider Reason for Visit * Reason Onset Date Comments New Med Request 01/24/2024 Encounter Details Date Type Department Care Team (Late st Contact Info) Description 01/24/2024 Telephone [facility] MEDICINE [address] [place] [address] Gordon Velez MD [address] [place], [place] [phone] New Med Request Social History Tobacco Use Types [...] encounter Miscellaneous Notes * Telephone Encounter - Wing Nell RN - 01/27/2024 4:22 PM EDT See Medication Question' note from 01/21. * Telephone Encounter - Carlos Katz - 01/24/2024 2:52 PM EDT Tc from patient calling to request lidocaine patches for the back states has the cream but it doesn't have any effect documented in this encounter Plan of Treatment Upcoming Encounters Date Type Department Care Team (Late st Contact Info) Description 11/16/2024 11:15 AM EDT Telemedicine [facility] MED & PEDS [address] [place] [address] Gordon Velez MD [address] [place] [address] documented as of this encounter Visit Diagnoses Not on filedocumented in this encounter Care Teams Confectionery Maker Relationship Specialty Start Date End Date Gordon Velez MD [address] [place] [address] PCP - General Internal Medicine 11/30/19 documented as of this encounter
== END 2024-10-27 11:44 | disposition home or self-care (01) ==
LOC: HO.HOS 10:57
PROVIDERS: PCP Internal Medicine; Visit Provider Physician Assistant
DX: M54.9 Dorsalgia, unspecified (principal); G89.29 Other chronic pain; M79.7 Fibromyalgia
CPT/HCPCS: 99203

== ENCOUNTER → 2024-10-27 10:59 | Outpatient (BNV) | payer MEDICAID, SELFPAY | PROVIDERS: Visit Provider Radiology Diagnostic Radiology | DX: M25.551 Pain in right hip (principal); M85.88 Other specified disorders of bone density and structure, other site | CPT/HCPCS: 72170 ==

== ENCOUNTER 2024-12-10 10:43 | Outpatient (REF) | payer OTHER, SELFPAY ==
[2024-12-10 11:44] LABS: MANUAL DIFF FLAG NO
[2024-12-10 11:52] LABS: Basophils Absolute Auto 0.1 X10*3/uL (0.0-0.2); Basophils Percent Auto 1.2 % (0-2); Eosinophils Absolute Auto 0.7 X10*3/uL (0.0-0.4); Eosinophils Percent Auto 10.4 % (0-4); Hematocrit 38.8 % (37.0-47.0); Hemoglobin 12.7 g/dl (12.0-16.0); Imm Gran Abs Auto 0.03 X10*3/uL (0.00-0.03); Imm Gran Pct Auto 0.4 % (0.0-0.4); Lymphocytes Absolute Auto 1.9 X10*3/uL (1.2-4.9); Lymphocytes Percent Auto 28.6 % (20-40); Mean Corpuscular HGB Conc 32.7 g/dl (31.0-35.0); Mean Corpuscular Hemoglobin 28.1 pg (27.0-33.0); Mean Corpuscular Volume 85.8 fL (80.0-98.0); Mean Platelet Volume 11.1 fL (9.4-12.3); Monocytes Absolute Auto 0.5 X10*3/uL (0.1-1.2); Monocytes Percent Auto 6.7 % (2-11); Neutrophils Absolute Auto 3.6 x10*3/uL (2.0-8.3); Neutrophils Percent Auto 52.7 % (45-73); Platelet Count 181 X10*3/uL (160-400); Red Blood Count 4.52 X10*6/uL (4.20-5.50); Red Cell Distribution Width 12.1 % (11.0-16.0); White Blood Count 6.8 X10*3/uL (4.8-10.8)
--- OUTSIDE RECORDS SUMMARY | 2024-12-10 12:05 | XMS_ITS | Encounter Summary ---
Author Organization [employer] Address 75 [facility] 7 [place] [address] Care Team Providers Care Casino Duty Manager Name Role Phone Gordon Velez MD Primary Care Prov ider Encounter Details Date Type Department Care Team (Late st Contact Info) Description 02/11/2023 Orders Only [facility] MEDICINE [address] [place] [address] Shannan Greene LPN Social History Tobacco Use [...] on filedocumented in this encounter Care Teams Casino Duty Manager Relationship Specialty Start Date End Date Gordon Velez MD [address] [place] [address] PCP - General Internal Medicine 11/30/19 documented as of this encounter
--- OUTSIDE RECORDS SUMMARY | 2024-12-10 12:05 | XMS_ITS | Encounter Summary ---
Author Organization [employer] Address 75 [facility] 7 [place] [address] Care Team Providers Care Box Finisher Name Role Phone Gordon Velez MD Primary Care Prov ider Encounter Details Date Type Department Care Team ([facility] st Contact Info) Description 10/07/2024 Orders Only [facility] CHC MED & PEDS [address] [place] [address] Gordon Velez MD 505 [place] [address] Type 2 diabetes mellitus without complication, without long-term current use of insulin ([facility]) Social History Tobacco Use Types Packs/Day Years [...] complication, without long-term current use of insulin ([facility]) documented in this encounter Additional Health Concerns Assessment Noted Time PHQ-9 Depression Total Score: 18 024 1:56 PM EDT documented as of this encounter Care Teams Box Finisher Relationship Specialty Start Date End Date Gordon Velez MD [address] [place] [phone] PCP - General Internal Medicine 11/30/19 documented as of this encounter
--- OUTSIDE RECORDS SUMMARY | 2024-12-10 12:05 | XMS_ITS | Encounter Summary ---
Author Organization [employer] Address 75 [facility] 7 [place] [address] Care Team Providers Care Rehab Office Coordinator Name Role Phone Gordon Velez MD Primary Care Prov ider Reason for Visit * Reason Onset Date Comments Appointment Request 02/15/2023 Encounter Details Date Type Department Care Team ([facility] st Contact Info) Description 02/15/[address] [facility] CHC MED & PEDS [address] [place] [address] Gordon Velez MD 505 [place] [address] Appointment Request Social History Tobacco Use Types [...] requesting to r/s appt from 02/15/23. Details: [facility] f/up 01/14- r/s Patient speaks angolan. documented in this encounter Plan of Treatment Not on file documented as of this encounter Visit Diagnoses Not on filedocumented in this encounter Care Teams Rehab Office Coordinator Relationship Specialty Start Date End Date Gordon Velez MD [address] [place] [phone] PCP - General Internal Medicine 11/30/19 documented as of this encounter
--- OUTSIDE RECORDS SUMMARY | 2024-12-10 12:05 | XMS_ITS | Encounter Summary ---
Author Organization [employer] Address 75 [facility] 7 [place] [address] Care Team Providers Care Nursing Home Manager Name Role Phone Gordon Velez MD Primary Care Prov ider Reason for Visit * Reason Onset Date Comments Med Refill 06/28/2023 Encounter Details Date Type Department Care Team ([facility] st Contact Info) Description 06/28/2023 Telephone [facility] CHC MED & PEDS [address] [place] [address] Gordon Velez MD 505 [place] [address] Med Refill Social History Tobacco Use Types [...] Medication is currently inactive Please sent to [facility] - [place] - [address] [place] [address] documented in this encounter Plan of Treatment Not on file documented as of this encounter Visit Diagnoses Not on filedocumented in this encounter Care Teams Nursing Home Manager Relationship Specialty Start Date End Date Gordon Velez MD 505 [facility] [place] [address] PCP - General Internal Medicine 11/30/19 documented as of this encounter
--- OUTSIDE RECORDS SUMMARY | 2024-12-10 12:05 | XMS_ITS | Encounter Summary ---
Author Organization [employer] Address 75 [facility] 7 [place] [address] Care Team Providers Care Camp Program Director Name Role Phone Gordon Velez MD Primary Care Prov ider Reason for Visit * Reason Comments Med Refill Encounter Details Date Type Department Care Team ([facility] st Contact Info) Description 08/13/2024 Refill [facility] CHC MED & PEDS 505 [place] [address] Grodon Velez MD 505 [place] [address] Social History Tobacco Use Types Packs/Day Years [...] documented as of this encounter Care Teams Camp Program Director Relationship Specialty Start Date End Date Gordon Velez MD [address] [place] [phone] PCP - General Internal Medicine 11/30/19 documented as of this encounter
--- OUTSIDE RECORDS SUMMARY | 2024-12-10 12:05 | XMS_ITS | Encounter Summary ---
Author Organization [employer] Address 75 [facility] 7t [place] [address] Care Team Providers Care Cocoa Roaster Name Role Phone Gordon Velez MD Primary Care Prov ider Reason for Visit * Reason Onset Date Comments Appointment Request 07/10/2023 Encounter Details Date Type Department Care Team ([facility] st Contact Info) Description 07/10/2023 Telephone [facility] MEDICINE 230 [place] [address] Gordon Velez MD 505 [place], [place] [phone] Appointment Request Social History Tobacco Use Types [...] on filedocumented in this encounter Care Teams Cocoa Roaster Relationship Specialty Start Date End Date Gordon Velez MD [address] [place] [phone] PCP - General Internal Medicine 11/30/19 documented as of this encounter
--- OUTSIDE RECORDS SUMMARY | 2024-12-10 12:05 | XMS_ITS | Encounter Summary ---
Author Organization [employer] Address 75 [facility] 7 [place] [address] Care Team Providers Care Parking Line Painter Name Role Phone Gordon Velez MD Primary Care Prov ider Reason for Visit * Reason Onset Date Comments Prior Authorization 10/01/2024 Encounter Details Date Type Department Care Team (Late st Contact Info) Description 10/01/2024 Telephone [facility] MEDICINE 230 [place] [address] Gordon Velez MD [address] [place], [place] [phone] Prior Authorization Social History Tobacco Use Types [...] [employer] Lancets 33G misc. Contact pt at [phone] * Telephone Encounter - Alec Moran - 10/01/2024 12:35 PM EDT Tc from pt requesting PA for med [employer] Lancets 33G misc. Contact pt at [phone] documented in this encounter Plan of Treatment Not on file documented as of this encounter Visit Diagnoses Not on filedocumented in this encounter Additional Health Concerns Assessment Noted Time PHQ-9 Depression Total Score: 18 024 1:56 PM EDT documented as of this encounter Care Teams Parking Line Painter Relationship Specialty Start Date End Date Gordon Velez MD 505 [place] [address] PCP - General Internal Medicine 11/30/19 documented as of this encounter
--- OUTSIDE RECORDS SUMMARY | 2024-12-10 12:05 | XMS_ITS | Clinical Summary ---
Author Organization [employer] Address 75 [facility] 7t [place] [address] Care Team Providers Care Beam Department Supervisor Name Role Phone Gordon Velez MD [...] 02/24/20 24 Active Blood Glucose Monitoring Suppl (alphacityguidese) w/Device kit 1 kit 4 times daily. 1 kit 06/23/20 24 2024 Active Nebulizers [facility] [place] nebulizer as instructed 1 each 07/07/20 [...] without long-term current use of insulin ([facility]) 1 each by Other route Once per [...] migh t be different from the original. [id number] Piyush Cheney, TC-LVM Problem Noted Date Diagnosed [...] uptake on the left side, followed at [facility] and she is on evaluation for surgery [...] AM EDT): Patient was receiving tramadol from database admin, but recent screening test was positive for [...] Encounters Date Type Department Care Team Description 12/10/2024 Orders Only GENERIC EXTERNAL DATA DEPARTMENT Provider, Generic External Data 12/08/2024 Refill [facility] CHC MED & PEDS [address] [place] [address] Gordon Velez MD Type 2 diabetes mellitus without complications ([facility]/HCC) 12/08/2024 Telephone [facility] MEDICINE [address] [place] [address] Gordon Velez MD Med Refill 12/07/2024 Refill [facility] MEDICINE [address] [place] [address] Gordon Velez MD Type 2 diabetes mellitus without complications ([facility]) 12/05/2024 Refill [facility] CHC MED & PEDS [address] [place] [address] Gordon Velez MD Type 2 diabetes mellitus without complications ([facility]) 11/16/2024 11:15 AM EDT Telemedicine [facility] CHC MED & PEDS [address] [place] [address] Gordon Velez MD Type 2 diabetes mellitus without complication, without long-term current use of insulin ([facility]) (Primary Dx); Acquired hypothyroidism; Chronic midline low back pain without sciatica 11/16/2024 Travel 11/15/2024 Refill [facility] CHC MED & PEDS [address] [place] [address] Gordon Velez MD Severe persistent asthma without complication 11/13/2024 Refill [facility] MEDICINE [address] [place] [address] Gordon Velez MD Severe persistent asthma without complication; Seasonal allergies 11/04/2024 Telephone [facility] MED & PEDS [address] [place] [address] Gordon Velez MD Med Refill 10/28/2024 Refill [facility] MED & PEDS [address] [place] [address] Erica Anaya MD Chronic right shoulder pain 10/23/2024 Telephone [facility] MED & PEDS [address] [place] [address] Gordon Velez MD Prior Authorization (Lidocaine patches ) 10/23/2024 Telephone [facility] MEDICINE [address] [place] [address] Gordon Velez MD Nurse Triage 10/18/2024 Refill [facility] MED & PEDS [address] [place] [address] Gordon Velez MD Severe persistent asthma without complication 10/16/2024 10:30 AM EDT Telemedicine [facility] MED & PEDS [address] [place] [address] Gordon Velez MD Chronic idiopathic constipation (Primary Dx); Screen for colon cancer 10/16/2024 Travel 10/14/2024 Telephone [facility] MED & PEDS [address] [place] [address] Gordon Velez MD chart prep 10/13/2024 Telephone [facility] MEDICINE [address] [place] [address] Gordon Velez MD 10/07/2024 Orders Only [facility] MED & PEDS [address] [place] [address] Gordon Velez MD Type 2 diabetes mellitus without complication, without long-term current use of insulin ([facility]) 10/02/2024 Telephone [facility] MEDICINE [address] [place] [address] Gordon Velez MD Medication Question 10/02/2024 Population Health Risk Score [facility] () Department [address] [place] [phone] Provider, Population Health Generic 10/01/2024 Telephone [facility] MEDICINE [address] [place] [address] Gordon Velez MD Prior Authorization 09/30/2024 Refill [facility] MED & PEDS [address] [place] [address] Erica Anaya MD Chronic right shoulder pain 09/26/2024 Refill [facility] MED & PEDS [address] [place] [address] Gordon Velez MD Seasonal allergies 09/23/2024 11:30 AM EST Office Visit [facility] MED & PEDS [address] [place] [address] Erica Anaya MD Encounter for immunization (Primary Dx); Chronic right shoulder pain 09/23/2024 Refill [facility] MED & PEDS [address] [place] [address] Paige Harris RN 09/23/2024 Telephone [facility] MED & PEDS [address] [place] [address] Gordon Velez MD 09/23/2024 Travel 09/22/2024 Telephone [facility] MED & PEDS [address] [place] [address] Gordon Velez MD Nurse Triage 09/18/2024 Telephone [facility] MEDICINE [address] [place] [address] Gordon Velez MD Medication Question 09/18/2024 Refill [facility] MEDICINE [address] [place] [address] Gordon Velez MD 09/17/2024 Outside Procedure [facility] OPTOMETRY [address] [place] [address] Ashlie Velasquez, OD Presbyopia (Primary Dx) 09/17/2024 Telephone [facility] MEDICINE [address] [place] [address] Gordon Velez MD Med Request 09/14/2024 9:15 AM EST Office Visit [facility] OPTOMET[facility] [address] [place] [address] Ashlie Velasquez, OD Hyperopia of both eyes [...] Procedure Name Priority Date/Time Associated Diagnosis Comments CBC WITH AUTO DIFFERENTIAL Routine 12/10/2024 11:42 AM EDT POCT GLYCATED HEMOGLOBIN, TOTAL Routine 08/07/2024 10:34 [...] Recently Relevant to Health Maintenance Results * (ABNORMAL) CBC auto differential (12/10/2024 11:42 AM EDT) White Blood Count 6.8 4.8 - 10.8 X10*3/uL [facility] Red Blood Count 4.52 4.20 - 5.50 X10*6/uL [facility] Hemoglobin 12.7 12.0 - 16.0 g/dl [facility] Hematocrit 38.8 37.0 - 47.0 % [facility] Mean Corpuscular Volume 85.8 80.0 - 98.0 fL [facility] Mean Corpuscular Hemoglobin 28.1 27.0 - 33.0 pg [facility] Mean Corpuscular HGB Conc 32.7 31.0 - 35.0 g/dl [facility] Red Cell Distribution Width 12.1 11.0 - 16.0 % [facility] Platelet Count 181 160 - 400 X10*3/uL [facility] Mean Platelet Volume 11.1 9.4 - 12.3 fL [facility] Neutrophils Percent Auto 52.7 45 - 73 % [facility] Imm Gran Pct Auto 0.4 0.0 - 0.4 % [facility] Lymphocytes Percent Auto 28.6 20 - 40 % [facility] Monocytes Percent Auto 6.7 2 - 11 % [facility] Eosinophils Percent Auto 10.4(H) 0 - 4 % [facility] Basophils Percent Auto 1.2 0 - 2 % [facility] NRBC Pct Auto 0.0 0.0 - 0.2 /100WBC [facility] Neutrophils Absolute Auto 3.6 2.0 - 8.3 x10*3/uL [facility] Imm Gran Abs Auto 0.03 0.00 - 0.03 X10*3/uL [facility] Lymphocytes Absolute Auto 1.9 1.2 - 4.9 X10*3/uL [facility] Monocytes Absolute Auto 0.5 0.1 - 1.2 X10*3/uL [facility] Eosinophils Absolute Auto 0.7(H) 0.0 - 0.4 X10*3/uL [facility] Basophils Absolute Auto 0.1 0.0 - 0.2 X10*3/uL [facility] NRBC Abs Auto 0.000 0.0 - 0.012 X10*3/uL [facility] 12/10/2024 11:4 2 AM EDT 12/10/2024 11:42 AM EDT us Generic External Data Provider LAB BLOOD ORDERAB LES Final Result [facility] [address] [place] [phone] * POCT A1C (08/07/2024 10:34 AM EST) Pathologist [facility] Hemoglobin A1C 5.5 4.0 - 6.0 % QC Media Lot # Comment:[id number] Lot# Expiration Date Comment:02/19/2026 Blood 08/07/2024 10:3 4 AM EST Gordon Rose MD POINT OF CARE TEST ENTER/EDIT ORDERABLES Final Result * Hepatitis C Antibody with Reflex to HCV, RNA, Quantitative, Real-Time PCR (05/13/2024 2:24 PM EDT) Pathologist [facility] Hepatitis C Antibody Nonreactive Nonreactive [facility] Comment:Antibodies to HCV no t detected; does not exclude early acuteHCV infection. Blood Venous blood specimen / Unknown 05/13/2024 2:24 PM EDT 05/13/2024 5:31 PM EDT Gordon Rose MD LAB BLOOD ORDERABL ES Final Result Performing Organization Address [facility] Co de Phone Number [facility] [address] [place] [address] [phone] * (ABNORMAL) Lipid Panel, Standard (05/13/2024 2:24 PM EDT) Triglycerides 138 <150 mg/dL [facility] Comment:Desirable Triglyceri de: less than 150 mg/dLBorderline High Triglyceride 150-199 mg/dLHigh Triglyceride: 200-499 mg/dLVery High Triglyceride: greater than or equal to 5OO mg/dL Cholesterol 131 <200 mg/dL [facility] Comment:Desirable Cholestero l: less than 200 mg/dLBorderline High Cholesterol: 200-239 mg/dLHigh Cholesterol: greater than 239 mg/dL LDL Cholesterol Calculated 65 <100 mg/dL [facility] Comment:Desirable LDL: less than 100 mg/dLNear Optimal/Above Optimal LDL: 110- 129 mg/dLBorderline High LDL: 130-159 mg/dLHigh LDL: 160-189 mg/dLVery High LDL: greater than or equal to 190 mg/dL HDL Cholesterol 39(L) >40 mg/dL [facility] Comment:Desirable HDL: great er than 40 mg/dL Note: This HDL assay may give artificially low results in patients with liver disease. Blood Venous blood specimen / Unknown 05/13/2024 2:24 PM EDT 05/13/2024 5:31 PM EDT us Gordon Rose MD LAB BLOOD ORDERABL ES Final Result Performing Organization Address [facility] Co de Phone Number [facility] [address] [place] [phone] * BI Mammogram Screening Tomosynthesis Left (09/19/2023 12:35 PM EST) Anatomical Region Laterality Modality Breast Left Mammography 09/19/2023 12:3 5 PM EST Narrative 09/23/2023 10:08 AM EST ? [facility] ? [address] ?[place], [place] [address] ? Mammography Report ? Signed ? Patient: Juan Ferguson,Jodi ?MR#: ?? [id number] ? : 1960 ?Acct:[id number] ? Age/Sex: 62 / F ?ADM Date: 09/19/23 ? Loc: HO.MAMMO ? Attending Dr: Sal Tabor CNM ? Ordering Physician: SAL TABOR CNM ?Results: 1 ?? Negative ? Date of Service: 09/19/23 ?Follow Up: 1 Year From Orig ?? inal Mammogram ? Procedure(s): MM tomosynthesis screening LT ?? Accession Number(s): [id number] ? cc: SAL TABOR CNM ? EXAMINATION: [...] in OV> ? 09/23/23 1004 ? DD/ 1235 ? TD/TT: ? Concrete Grinder Operator: ? Procedure Note Russel, Image - 09/23/2023 [facility] [address] [place] [address] Mammography Report Signed Patient: Herman Saenz#: [id number] : 1960Acct:[id number] Age/Sex: 62 / FADM Date: 09/19/23 Loc: HO.MAMMO Attending Dr: Sal Tabor CNM Ordering Physician: SAL TABOResults: 1 Negative Date of Service: 09/19/23Follow Up: 1 Year From Orig inal Mammogram Procedure(s): MM tomosynthesis screening Accession Number(s): [id number] cc: SAL TABOR CNM EXAMINATION: MM SCREENING [...] in OV> 09/23/23 1004 DD/ 1235 TD/TT: Concrete Grinder Operator: Sal Tabor CN IMG BI PROCEDURES Final R esult * THINPREP TIS PAP AND HPV mRNA E6/E7 WITH REFLEX TO HPV 16,18/45 (04/10/2022 11:22 AM EDT) Clinical Information: None given [facility] COMMENT SEE COMMENT [facility] ON [...] has been evaluated with computer assisted technology. [facility] Department Specialist: SEE COMMENT [facility] Comment: SL, CT(ASCP) CT screening location: [address] ??[address] HPV nRNA E6/E7 Not Detected Not Detected [facility] Comment: Methodology: Crematorium Operator-Mediated Amplification This assay detects E6/E7 viral messenger RNA (mRNA) from 14 high-risk HPV types (16,18,31,33,35,39,45,51,52,56,58,59,66,68). ? Cervical sources are required for HPV testing. If a vaginal source from a patient who has had a total hysterectomy with removal of cervix was ?? submitted, please contact the testing laboratory for alternative testing options. ?? For additional information, please refer to http://education.TCAS Online/faq/PDZ226j5 (This link if provided for information/ educational purposes only.) Interpretation/Res ult: SEE COMMENT [facility] Comment: Negative for intraepithelial lesion or malignancy. Atrophic pattern; predominantly parabasal cells LMP: NONE GIVEN [facility] Prev. BX: NONE GIVEN [facility] Prev. PAP: 03/2019 NIL/NEG HYST 2 CHERELLE 2012 [facility] Review Department Specialist: SEE COMMENT [facility] Comment: CONRAD, CT(ASCP) CT screening location: [address] ??[address] SOURCE: None given [facility] Statement Of Adequacy: SATISFACTORY FOR EVALUATION [facility] 04/10/2022 11:2 2 AM EDT Sal Tabor CNM LAB PATHOLOGY ORDERABLES Final Result Performing Organization Address [facility] Co de Phone Number [facility] [address] * MICROALBUMIN, RANDOM (05/31/2020 12:00 AM EST) Creatinine Urine 33.22 mg/dL [facility] Microalbum/Creati nine Ratio Ur TNP ug/mg cr [facility] Comment: Unable to calculate albumin/creatinine ratio due to low microalbumin or creatinine result. Microalbumin Urine <5.0 mg/L [facility] 05/31/2020 Historical Provider HISTORICAL/NON ORDERABLE LABS Final Result Performing Organization Address [facility] Co de Phone Number [facility] [address] * Hm Colonoscopy (11/24/2015 12:21 PM EDT) Historical Provider HEALTH MAINTENANCE Final Result from Last 3 Months or Most Recently Relevant to Health Maintenance Insurance [facility] STANDARD MEDICARE Care Teams Beam Department Supervisor Relationship Specialty Start Date End Date Gordon Velez MD [address] [place] [address] PCP - General Internal Medicine 11/30/19
--- OUTSIDE RECORDS SUMMARY | 2024-12-10 12:05 | XMS_ITS | Clinical Summary ---
Author Organization 175 [facility] Address [address] [place] [address] Phone Care Team Providers Care Inbound Ingredient Logistics Specialist Name Role Phone Gordon Velez Primary Care [...] propionate (FLONASE) 50 mcg/actuation nasal spray 1 [place] by Each Nare route 2 times daily. [...] Diagnosed Date T2DM (type 2 diabetes mellitus) ([facility] V24, [facility] S[facility] V28) 06/01/2024 Hyperlipidemia associated wi th type 2 diabetes mellitus ([facility] V24, [facility] V28) 06/01/2024 Social History Tobacco Use Types [...] topic Insurance MEDICAID - [place] Care Teams Inbound Ingredient Logistics Specialist Relationship Specialty Start Date End Date Grodon Velez [address] [place] [phone] PCP - General Internal Medicine 05/15/24
--- OUTSIDE RECORDS SUMMARY | 2024-12-10 12:05 | XMS_ITS | Encounter Summary ---
Author Organization [employer] Address 75 [facility] 7 [place] [address] Care Team Providers Care Machine Repairer Name Role Phone Gordon Velez MD Primary Care Prov ider Reason for Visit * Reason Onset Date Comments Med Request 09/17/2024 Encounter Details Date Type Department Care Team ([facility] st Contact Info) Description 09/17/2024 Telephone [facility] MEDICINE [address] [place] [address] Gordon Velez MD [address] [place], [place] [phone] Med Request Social History Tobacco Use Types [...] AM EST Tc from pt requesting medication Ddcldkv-Snvvsnq-Wqmvjz Collin (Medicated Pain Relieving) 1.2-5.7-6.3 % patch to be sent to [facility], pt inform she needs a better dosage for pain. documented in this encounter Plan of Treatment Not on file documented as of this encounter Visit Diagnoses Not on filedocumented in this encounter Additional Health Concerns Assessment Noted Time PHQ-9 Depression Total Score: 18 024 1:56 PM EDT documented as of this encounter Care Teams Machine Repairer Relationship Specialty Start Date End Date Gordon Velez MD [address] [place] [address] PCP - General Internal Medicine 11/30/19 documented as of this encounter
--- OUTSIDE RECORDS SUMMARY | 2024-12-10 12:05 | XMS_ITS | Encounter Summary ---
Author Organization [employer] Address 75 [facility] 7t [place] [address] Care Team Providers Care Loin Trimmer Name Role Phone Gordon Velez MD Primary Care Prov ider Encounter Details Date Type Department Care Team (Late st Contact Info) Description 12/10/2024 Orders Only GENERIC EXTERNAL DATA DEPARTMENT Provider, Generic External Data Social History Tobacco Use Types Packs/Day Years [...] AUTO DIFFERENTIAL Routine 12/10/2024 11:42 AM EDT documented in this encounter Results * (ABNORMAL) CBC auto differential (12/10/2024 11:42 AM EDT) White Blood Count 6.8 4.8 - 10.8 X10*3/uL [facility] Red Blood Count 4.52 4.20 - 5.50 X10*6/uL [facility] Hemoglobin 12.7 12.0 - 16.0 g/dl [facility] Hematocrit 38.8 37.0 - 47.0 % [facility] Mean Corpuscular Volume 85.8 80.0 - 98.0 fL [facility] Mean Corpuscular Hemoglobin 28.1 27.0 - 33.0 pg [facility] Mean Corpuscular HGB Conc 32.7 31.0 - 35.0 g/dl [facility] Red Cell Distribution Width 12.1 11.0 - 16.0 % [facility] Platelet Count 181 160 - 400 X10*3/uL [facility] Mean Platelet Volume 11.1 9.4 - 12.3 fL [facility] Neutrophils Percent Auto 52.7 45 - 73 % [facility] Imm Gran Pct Auto 0.4 0.0 - 0.4 % [facility] Lymphocytes Percent Auto 28.6 20 - 40 % [facility] Monocytes Percent Auto 6.7 2 - 11 % [facility] Eosinophils Percent Auto 10.4(H) 0 - 4 % [facility] Basophils Percent Auto 1.2 0 - 2 % [facility] NRBC Pct Auto 0.0 0.0 - 0.2 /100WBC [facility] Neutrophils Absolute Auto 3.6 2.0 - 8.3 x10*3/uL [facility] Imm Gran Abs Auto 0.03 0.00 - 0.03 X10*3/uL [facility] Lymphocytes Absolute Auto 1.9 1.2 - 4.9 X10*3/uL [facility] Monocytes Absolute Auto 0.5 0.1 - 1.2 X10*3/uL [facility] Eosinophils Absolute Auto 0.7(H) 0.0 - 0.4 X10*3/uL [facility] Basophils Absolute Auto 0.1 0.0 - 0.2 X10*3/uL [facility] NRBC Abs Auto 0.000 0.0 - 0.012 X10*3/uL [facility] 12/10/2024 11:4 2 AM EDT 12/10/2024 11:42 AM EDT us Generic External Data Provider LAB BLOOD ORDERAB LES Final Result [facility] [address] [place] [address] [phone] documented in this encounter Visit Diagnoses Not on filedocumented in this encounter Additional Health Concerns Assessment Noted Time PHQ-9 Depression Total Score: 5 10/17/19 25 10:16 AM EDT documented as of this encounter Care Teams Loin Trimmer Relationship Specialty Start Date End Date Gordon Velez MD [address] [place] [phone] PCP - General Internal Medicine 11/30/19 documented as of this encounter
--- OUTSIDE RECORDS SUMMARY | 2024-12-10 12:06 | XMS_ITS | Encounter Summary ---
Author Organization [employer] Address [address] [address] Care Team Providers Care Water Plant Pump Operator Supervisor Name Role Phone Gordon Velez MD Primary Care Prov ider Reason for Visit * Reason Onset Date Comments PT1 02/06/2023 Encounter Details Date Type Department Care Team ([facility] Contact Info) Description 02/06/2023 Telephone [facility] CHC MED & PEDS [address] [place] [address] Gordon Velez MD [address] [place] [address] PT1 Social History Tobacco Use Types Packs/Day [...] requesting PT1 Date: 02/21/23 Time: 12:15 Address: [address] [place] [address] Specialty: endocrinology Licensing Engineer: yes Wheelchair: no, cane documented in this encounter Plan of Treatment Not on file documented as of this encounter Visit Diagnoses Not on filedocumented in this encounter Care Teams Water Plant Pump Operator Supervisor Relationship Specialty Start Date End Date Gordon Velez MD [address] [place] [address] PCP - General Internal Medicine 11/30/19 documented as of this encounter
--- OUTSIDE RECORDS SUMMARY | 2024-12-10 12:06 | XMS_ITS | Encounter Summary ---
Author Organization [employer] Address [address] [place] [address] Care Team Providers Care Life Science Technician Name Role Phone Gordon Velez MD Primary Care Prov ider Encounter Details Date Type Department Care Team ([facility] Contact Info) Description 07/18/2022 Telephone C [facility] MED & PEDS [address] [place], [place] [phone] Gordon Velez MD [address] [place], [place] [phone] Social History Tobacco Use Types Packs/Day Years [...] on filedocumented in this encounter Care Teams Life Science Technician Relationship Specialty Start Date End Date Gordon Velez MD [address] [place], [place] [phone] PCP - General Internal Medicine 11/30/19 documented as of this encounter
--- OUTSIDE RECORDS SUMMARY | 2024-12-10 12:06 | XMS_ITS | Clinical Summary ---
Author Organization [facility] Address [address] [place] [address] Care Team Providers Care Carriage Operator Name Role Phone Verna Michael Mcclain Primary Care Provider + [phone] Allergies No known active allergies Medications traMADoL [...] patient's age to complete this topic Insurance A V.E[employer]S[place]c[employer]a.r.e[employer] [place]ATH[place] [id number] Care Teams Carriage Operator Relationship Specialty Start Date End Date Michael Gillespie [address] [place] [address] PCP - General Internal Medicine 11/24/20
--- OUTSIDE RECORDS SUMMARY | 2024-12-10 12:06 | XMS_ITS | Encounter Summary ---
Author Organization [employer] Address 75 [facility] 7 [place] [address] Care Team Providers Care Farm Instructor Name Role Phone Gordon Velez MD Primary Care Prov ider Reason for Visit * Reason Onset Date Comments Med Refill 06/02/2024 Encounter Details Date Type Department Care Team ([facility] st Contact Info) Description 06/02/2024 Telephone [facility] MEDICINE [address] [place] [address] Gordon Velez MD 505 [place], [place] [phone] Med Refill Social History Tobacco Use Types [...] 50 MG tablet To be sent to: [facility] [place], [place] - [address] documented in this encounter Plan of Treatment Not on file documented as of this encounter Visit Diagnoses Not on filedocumented in this encounter Additional Health Concerns Assessment Noted Time PHQ-9 Depression Total Score: 18 024 1:56 PM EDT documented as of this encounter Care Teams Farm Instructor Relationship Specialty Start Date End Date Gordon Velez MD [address] [place] [address] PCP - General Internal Medicine 11/30/19 documented as of this encounter
--- OUTSIDE RECORDS SUMMARY | 2024-12-10 12:06 | XMS_ITS | Encounter Summary ---
Author Organization [email or web address] Address 75 [facility] 7 [place] [address] Care Team Providers Care Picker And Packer Name Role Phone Gordon Velez MD Primary Care Prov ider Reason for Visit * Reason Onset Date Comments Med Refill 11/04/2024 Encounter Details Date Type Department Care Team ([facility] st Contact Info) Description 11/04/2024 Telephone [facility] CHC MED & PEDS [address] [place] [address] Gordon Velez MD [address] [place] [address] Med Refill Social History Tobacco Use Types [...] chart. PCP will not be refilling med. JUNIOR AUTOMATION ENGINEER nurses tried contacting pt to inform. * Telephone Encounter - Kasandra Vidal - 11/04/2024 12:50 PM EDT TC from pt requesting medication refill. Medications needing refill : oxyCODONE-acetaminophen (Percocet) 5-325 MG tablet To be sent to: [facility] [place] - [address] [facility] documented in this encounter Plan of Treatment Not on file documented as of this encounter Visit Diagnoses Not on filedocumented in this encounter Additional Health Concerns Assessment Noted Time PHQ-9 Depression Total Score: 5 10/17/19 25 10:16 AM EDT documented as of this encounter Care Teams Picker And Packer Relationship Specialty Start Date End Date Gordon Velez MD [address] [place] [address] PCP - General Internal Medicine 11/30/19 documented as of this encounter
--- OUTSIDE RECORDS SUMMARY | 2024-12-10 12:06 | XMS_ITS | Encounter Summary ---
Author Organization [employer] Address 75 [facility] 7 [place] [address] Care Team Providers Care Auto Research Engineer Name Role Phone Gordon Velez MD Primary Care Prov ider Reason for Visit * Reason Onset Date Comments Mamogram Order 05/15/2024 Encounter Details Date Type Department Care Team ([facility] st Contact Info) Description 05/15/2024 Telephone [facility] MEDICINE [address] [place] [address] Gordon Velez MD [address] [place], [place] [phone] Mamogram Order Social History Tobacco Use Types [...] any questions you can contact pt at [phone]. (Icelandic Speaker) documented in this encounter Plan of Treatment Not on file documented as of this encounter Visit Diagnoses Not on filedocumented in this encounter Additional Health Concerns Assessment Noted Time PHQ-9 Depression Total Score: 18 024 1:56 PM EDT documented as of this encounter Care Teams Auto Research Engineer Relationship Specialty Start Date End Date Gordon Velez MD [address] [place] [phone] PCP - General Internal Medicine 11/30/19 documented as of this encounter
--- OUTSIDE RECORDS SUMMARY | 2024-12-10 12:06 | XMS_ITS | Encounter Summary ---
Author Organization [employer] Address 75 [facility] 7t [place] [address] Care Team Providers Care Forest Nursery Supervisor Name Role Phone Gordon Velez MD Primary Care Prov ider Encounter Details Date Type Department Care Team (Late st Contact Info) Description 11/08/2023 Orders Only [facility] MEDICINE [address] [place] [address] ProviderMarito MD Social History Tobacco Use Types [...] on filedocumented in this encounter Care Teams Forest Nursery Supervisor Relationship Specialty Start Date End Date FamGordon Salas MD [address] [place] [address] PCP - General Internal Medicine 11/30/19 documented as of this encounter
--- OUTSIDE RECORDS SUMMARY | 2024-12-10 12:06 | XMS_ITS | Encounter Summary ---
Author Organization [employer] Address 75 [facility] 7 [place] [address] Care Team Providers Care Sharepoint Architect Name Role Phone Gordon Velez MD Primary Care Prov ider Reason for Visit * Reason Onset Date Comments Med Refill 12/08/2024 Encounter Details Date Type Department Care Team (Late st Contact Info) Description 12/08/2024 Telephone [facility] MEDICINE [address] [place] [address] Gordon Velez MD 505 [place], [place] [phone] Med Refill Social History Tobacco Use Types [...] 100 MG tablet [facility]: [facility] [place] [facility] [address] [facility] documented in this encounter Plan of Treatment Not on file documented as of this encounter Visit Diagnoses Not on filedocumented in this encounter Additional Health Concerns Assessment Noted Time PHQ-9 Depression Total Score: 5 10/17/19 25 10:16 AM EDT documented as of this encounter Care Teams Sharepoint Architect Relationship Specialty Start Date End Date Gordon Velez MD [address] [place] [address] PCP - General Internal Medicine 11/30/19 documented as of this encounter
--- OUTSIDE RECORDS SUMMARY | 2024-12-10 12:06 | XMS_ITS | Encounter Summary ---
Author Organization [employer] Address 75 [facility] 7t [place] [address] Care Team Providers Care Camera Supervisor Name Role Phone Gordon Velez MD Primary Care Prov ider Reason for Visit * Reason Onset Date Comments Appointment Request 09/16/2023 Encounter Details Date Type Department Care Team ([facility] st Contact Info) Description 09/16/2023 Telephone [facility] MEDICINE [address] [place] [address] Gordon Velez MD 505 [place], [place] [phone] Appointment Request Social History Tobacco Use Types [...] t he electric, gas, oil or water [employer] threatened to shut off services in your [...] mammogram. Please contact pt if any questions: [phone] documented in this encounter Plan of Treatment Not on file documented as of this encounter Visit Diagnoses Not on filedocumented in this encounter Care Teams Camera Supervisor Relationship Specialty Start Date End Date Gordon Velez MD [address] [place] [phone] PCP - General Internal Medicine 11/30/19 documented as of this encounter
--- OUTSIDE RECORDS SUMMARY | 2024-12-10 12:06 | XMS_ITS | Encounter Summary ---
Author Organization [employer] Address 75 [facility] 7 [place] [address] Care Team Providers Care Manager Research Name Role Phone Gordon Velez MD Primary Care Prov ider Encounter Details Date Type Department Care Team ([facility] st Contact Info) Description 11/21/2022 Orders Only [facility] CHC MED & PEDS [address] [place], [place] [phone] Gordon Velez MD [address] [place] [address] Social History Tobacco Use Types Packs/Day Years [...] on filedocumented in this encounter Care Teams Manager Research Relationship Specialty Start Date End Date Gordon Velez MD [address] [place] [address] PCP - General Internal Medicine 11/30/19 documented as of this encounter
--- OUTSIDE RECORDS SUMMARY | 2024-12-10 12:06 | XMS_ITS | Encounter Summary ---
Author Organization [employer] Address 75 [facility] 7 [place] [address] Care Team Providers Care Duty Engineer Name Role Phone Gordon Velez MD Primary Care Prov ider Reason for Visit * Reason Comments Med Refill Encounter Details Date Type Department Care Team ([facility] st Contact Info) Description 12/05/2024 Refill [facility] CHC MED & PEDS [address] [place], [place] [phone] Gordon Velez MD [address] [place] [address] Type 2 diabetes mellitus without complications (CMS/HCC) [...] documented as of this encounter Care Teams Duty Engineer Relationship Specialty Start Date End Date Gordon Velez MD [address] [place] [phone] PCP - General Internal Medicine 11/30/19 documented as of this encounter
--- OUTSIDE RECORDS SUMMARY | 2024-12-10 12:06 | XMS_ITS | Encounter Summary ---
Author Organization [employer] Address 75 [facility] 7 [place] [address] Care Team Providers Care Medical Coder Name Role Phone Gordon Velez MD Primary Care Prov ider Reason for Visit * Reason Comments Med Refill Encounter Details Date Type Department Care Team ([facility] st Contact Info) Description 11/15/2024 Refill [facility] CHC MED & PEDS [address] [place] [address] Gordon Velez MD [address] [place] [address] Severe persistent asthma without complication Social History [...] documented as of this encounter Care Teams Medical Coder Relationship Specialty Start Date End Date Gordon Velez MD [address] [place] [phone] PCP - General Internal Medicine 11/30/19 documented as of this encounter
--- OUTSIDE RECORDS SUMMARY | 2024-12-10 12:06 | XMS_ITS | Encounter Summary ---
Author Organization [employer] Address [address] [facility] 7t [place] [address] Care Team Providers Care Grey Roll Man Name Role Phone Gordon Velez MD Primary Care Prov ider Encounter Details Date Type Department Care Team (Late st Contact Info) Description 07/10/2022 Orders Only [facility] [address] [place] [address] Katey Campos LPN Social History Tobacco Use [...] AM EDT) Thyroglobulin Antibody <1 <=1 IU/mL [facility] Comment:This Thyroglobulin a ntibody test was performedusing the Revolve. Chemiluminescent method.Values obtained from different assay methods cannot beused interchangeably. Thyroglobulin antibody levels,regardless of value, should not be interpreted asabsolute evidence of the presence or absence ofdisease. Thyroglobulin, LC/MS/MS TNP [facility] Thyroglobulin Level 0.5(A) ng/mL [facility] Comment:Reference Range: Ath yrotic: <0.1 ng/mLReference range applies to differentiated thyroidcancer patients following treatment. The presence ofmeasurable thyroglobulin indicates the presence ofthyroglobulin-producing thyroid tissue. Clinicalcorrelation is advised.This Thyroglobulin test was performed using theRevolve. Chemiluminescent method. Valuesobtained from different assay methods cannot beused interchangeably. Thyroglobulin levels, regardlessof value, should not be interpreted as absoluteevidence of the presence or absence of disease.THIS TEST WAS PERFORMED AT:[employer]/[id number] [place] [id number] Omer REID MD,PHD 11/13/2022 11:2 9 AM EDT 11/13/2022 11:29 AM EDT [facility] External Provider LAB BLO OD ORDERABLES Final Result Performing Organization Address [facility] de Phone Number [facility] [address] [place] [phone] * (ABNORMAL) TSH (11/13/2022 11:29 AM EDT) Thyroid Stimulating Hormone 24.45(H) 0.32 - 4.0 uIU/mL [facility] Comment:Note: A sustained TS H level above 2.5 uIU/mL may warrant further investigation. TSH 3rd Generation ([facility]) 11/13/2022 11:2 9 AM EDT 11/13/2022 11:29 AM EDT [facility] External Provider LAB BLO OD ORDERABLES Final Result Performing Organization Address [facility] de Phone Number [facility] [address] [place] [phone] * (ABNORMAL) T4, Free (11/13/2022 11:29 AM EDT) Free T4 (Free Thyroxine) <0.42(L) 0.71 - 1.85 ng/dL [facility] 11/13/2022 11:2 9 AM EDT 11/13/2022 11:29 AM EDT [facility] External Provider LAB BLO OD ORDERABLES Final Result Performing Organization Address City/[facility] Co de Phone Number [facility] [address] [place] [address] [phone] * (ABNORMAL) Thyroblobulin, Tumor Marker w/Reflex (11/08/2022 1:14 PM EDT) Thyroglobulin Antibody <1 <=1 IU/mL [facility] Comment:This Thyroglobulin a ntibody test was performedusing the Revolve. Chemiluminescent method.Values obtained from different assay methods cannot beused interchangeably. Thyroglobulin antibody levels,regardless of value, should not be interpreted asabsolute evidence of the presence or absence ofdisease. Thyroglobulin, LC/MS/MS TNP [facility] Thyroglobulin Level 0.3(A) ng/mL [facility] Comment:Reference Range: Ath yrotic: <0.1 ng/mLReference range applies to differentiated thyroidcancer patients following treatment. The presence ofmeasurable thyroglobulin indicates the presence ofthyroglobulin-producing thyroid tissue. Clinicalcorrelation is advised.This Thyroglobulin test was performed using theRevolve. Chemiluminescent method. Valuesobtained from different assay methods cannot beused interchangeably. Thyroglobulin levels, regardlessof value, should not be interpreted as absoluteevidence of the presence or absence of disease.THIS TEST WAS PERFORMED AT:[employer]/[id number] [place] [address]UTDYXQSEDVIN REID MD,PHD 11/08/2022 1:14 PM EDT 11/08/2022 1:14 PM EDT us [facility] External Provider LAB BLO OD ORDERABLES Final Result Performing Organization Address City/[facility]/ZIP Co de Phone Number [facility] [address] [place] [phone] * (ABNORMAL) TSH (11/08/2022 1:14 PM EDT) Thyroid Stimulating Hormone 8.44(H) 0.32 - 4.0 uIU/mL [facility] Comment:Note: A sustained TS H level above 2.5 uIU/mL may warrant further investigation. TSH 3rd Generation ([facility]) 11/08/2022 1:14 PM EDT 11/08/2022 1:14 PM EDT [facility] External Provider LAB BLO OD ORDERABLES Final Result Performing Organization Address [facility]/ZIP Co de Phone Number [facility] [address] [place] [phone] * (ABNORMAL) T4, Free (11/08/2022 1:14 PM EDT) Free T4 (Free Thyroxine) <0.42(L) 0.71 - 1.85 ng/dL [facility] 11/08/2022 1:14 PM EDT 11/08/2022 1:14 PM EDT [facility] External Provider LAB BLO OD ORDERABLES Final Result Performing Organization Address [facility] Co de Phone Number [facility] [address] [place] [phone] * (ABNORMAL) Sed Rate by Modified Gabyren (10/22/2022 10:13 AM EDT) Erythrocyte Sedimentation Rate 26(H) 0 - 20 MM/HR [facility] Comment:Patients with polycy themia and many hemoglobin abnormalitiesmay have depressed sed rates whereas patients with anemiamay have elevated sed rates. 10/22/2022 10:1 3 AM EDT 10/22/2022 10:13 AM EDT [facility] External Provider LAB BLO OD ORDERABLES Final Result Performing Organization Address [facility] Co de Phone Number [facility] [address] [place] [phone] * (ABNORMAL) C-reactive Protein (10/22/2022 10:13 AM EDT) C Reactive Protein 1.98(H) < or = 0.50 mg/dL [facility] 10/22/2022 10:1 3 AM EDT 10/22/2022 10:13 AM EDT [facility] External Provider LAB BLO OD ORDERABLES Final Result Performing Organization Address [facility] de Phone Number [facility] [address] [place] [phone] * ALT (10/22/2022 10:13 AM EDT) Alanine Aminotransferase 18 0 - 31 U/L [facility] 10/22/2022 10:1 3 AM EDT 10/22/2022 10:13 AM EDT [facility] External Provider LAB BLO OD ORDERABLES Final Result Performing Organization Address [facility] Co de Phone Number [facility] [address] [place] [phone] * AST (10/22/2022 10:13 AM EDT) Pathologist [facility] Aspartate Amino Transferase 20 5 - 31 U/L [facility] 10/22/2022 10:1 3 AM EDT 10/22/2022 10:13 AM EDT [facility] External Provider LAB BLO OD ORDERABLES Final Result Performing Organization Address [facility] de Phone Number [facility] [address] [place] [phone] * Creatinine, Serum (10/22/2022 10:13 AM EDT) Creatinine, Serum 0.76 0.5 - 1.4 mg/dL [facility] Estimated Glomerular Filt Rate >60 [facility] Comment:NOTE: For -Am erican individuals, multiply the result by 1.210.Chronic Kidney Disease: Estimated GFR < 60 mL/min/1.70k6Lytznn Kidney Disease: Estimated GFR < 15 mL/min/1.73m2 10/22/2022 10:1 3 AM EDT 10/22/2022 10:13 AM EDT us [facility] External Provider LAB BLO OD ORDERABLES Final Result [facility] [address] [place] [phone] * Tramadol, urine (10/22/2022 10:12 AM EDT) Tramadol, Ur >81597 [facility] Comment: Report Name ? Results Units Reference Range SiteDRUG MONITOR, TRAMADOL, QN, URINE ?SF5Chspxposfixnuzhko: ? >84190 (H)ng/mL ? <100Tramadol: ?>57463 (H)ng/mL ? <100Tramadol Comments: ? See Tramadol Notes, LDT NotesDRUG MONITORING TEMPLATE ? IC8Avvcm and Comments:This drug testing is for medical treatment only.Analysis was performed as non-forensic testing andthese results should be used only by healthcareproviders to render diagnosis or treatment, or tomonitor progress of medical conditions.Tramadol Notes:Tramadol, Desmethyltramadol detected is consistent withthe use of the drug Tramadol.LDT Notes:Confirmation tests were developed and their analyticalperformance characteristics have been determined by[facility]. It has not been cleared or approvedby the FDA. This assay has been validated pursuant tothe CLIA regulations and is used for clinical purposes.Healthcare Providers needing Interpretation assistance,please contact us at [phone] ( )M- F, 8am to 10pm ESTSite InformationNL1:[employer] [id number] [place] [id number] Laboratory Director: Shekhar Pierre M.D. Desmethyltramadol, Ur >92118 [facility] 10/22/2022 10:1 2 AM EDT 10/22/2022 10:38 AM EDT us [facility] External Provider LAB URI NE ORDERABLES Final Result [facility] [address] [place] [phone] * (ABNORMAL) Drug Monitoring, Panel 1, Screen, Urine (10/22/2022 10:12 AM EDT) Opiate Screen Urine Not Detected Not Detect [facility] Comment:Opiate cut-off is 30 0 ng/mL.Positive results are unconfirmed and should not be used fornon-medical purposes. Barbiturates, Urine Not Detected Not Detect [facility] Comment:Barbiturate cut-off is 200 ng/mL.Positive results are unconfirmed and should not be used fornon-medical purposes. Phencyclidine Screen Urine Not Detected Not Detect [facility] Comment:Phencyclidine cut-of f is 25 ng/mL.Positive results are unconfirmed and should not be used fornon-medical purposes. Amphetamine Screen Urine Not Detected Not Detect [facility] Comment:Amphetamine cut-off is 1000 ng/mL.Positive results are unconfirmed and should not be used fornon-medical purposes. Benzodiazepines Screen Urine POSITIVE(A) Not Detect [facility] Comment:Benzodiazepine cut-o ff is 200 ng/mL.Positive results are unconfirmed and should not be used fornon-medical purposes. Cocaine Screen Urine Not Detected Not Detect [facility] Comment:Cocaine cut-off is 3 00 ng/mL.Positive results are unconfirmed and should not be used fornon-medical purposes. Cannabinoid Screen Urine POSITIVE(A) Not Detect [facility] Comment:Cannabinoid cut-off is 50 ng/mL.Positive results are unconfirmed and should not be used fornon-medical purposes. FENTANYL URINE POSITIVE(A) Not Detect [facility] Comment:Fentanyl cut-off is 1 ng/mL.Positive results are unconfirmed and should not be used fornon-medical purposes. 10/22/2022 10:1 2 AM EDT 10/22/2022 10:34 AM EDT [facility] External Provider LAB URI NE ORDERABLES Final Result [facility] [address] [place] [phone] * (ABNORMAL) Comprehensive Metabolic Panel (09/27/2022 2:11 PM EST) Sodium 141 135 - 145 mmol/L [facility] Potassium 4.3 3.3 - 5.1 mmol/L [facility] Chloride 104 96 - 108 mmol/L [facility] Carbon Dioxide 30(H) 22 - 29 mmol/L [facility] Anion Gap 11(L) 12 - 20 [facility] Urea Nitrogen (BUN) 13 9 - 16 mg/dL [facility] Creatinine, Serum 0.73 0.5 - 1.4 mg/dL [facility] Creatinine Clr Calc Pharmacy 73.6 [facility] Comment:Provided height and weight: 157.48 cm,70.76 kg.eGFR (calculated from the MDRD study equation) and eCrCl(calculated from the Cockcroft-Gault equation) are based ondifferent parameters and may not yield comparable results.If eCrCl result is absurd, please check patient'sheight/weight. Estimated Glomerular Filt Rate >60 [facility] Comment:NOTE: For -Am erican individuals, multiply the result by 1.210.Chronic Kidney Disease: Estimated GFR < 60 mL/min/1.54f0Erqhkt Kidney Disease: Estimated GFR < 15 mL/min/1.73m2 Glucose 90 60 - 115 mg/dL [facility] Calcium 8.8 8.4 - 10.2 mg/dL [facility] Bilirubin, Total 0.4 0.0 - 1.0 mg/dL [facility] Aspartate Amino Transferase 25 5 - 31 U/L [facility] Alanine Aminotransferase 20 0 - 31 U/L [facility] Total Protein 6.7 6.5 - 8.0 g/dL [facility] Albumin Level 4.1 3.5 - 5.0 g/dL [facility] Alkaline Phosphatase 71 39 - 117 U/L [facility] 09/27/2022 2:11 PM EST 09/27/2022 2:14 PM EST us [facility] External Provider LAB BLO OD ORDERABLES Final Result [facility] [address] [place] [phone] * (ABNORMAL) CBC auto differential (09/27/2022 2:11 PM EST) White Blood Count 7.5 4.8 - 10.8 X10*3/uL [facility] Red Blood Count 4.42 4.20 - 5.50 X10*6/uL [facility] Hemoglobin 12.4 12.0 - 16.0 g/dl [facility] Hematocrit 36.9(L) 37.0 - 47.0 % [facility] Mean Corpuscular Volume 83.5 80.0 - 98.0 fL [facility] Mean Corpuscular Hemoglobin 28.1 27.0 - 33.0 pg [facility] Mean Corpuscular HGB Conc 33.6 31.0 - 35.0 g/dl [facility] Red Cell Distribution Width 12.5 11.0 - 16.0 % [facility] Platelet Count 139(L) 160 - 400 X10*3/uL [facility] Mean Platelet Volume 12.0 9.4 - 12.3 fL [facility] Neutrophils Percent Auto 54.6 45 - 73 % [facility] Imm Gran Pct Auto 0.4 0.0 - 0.4 % [facility] Lymphocytes Percent Auto 28.7 20 - 40 % [facility] Monocytes Percent Auto 8.3 2 - 11 % [facility] Eosinophils Percent Auto 7.3(H) 0 - 4 % [facility] Basophils Percent Auto 0.7 0 - 2 % [facility] NRBC Pct Auto 0.0 0.0 - 0.2 /100WBC [facility] Neutrophils Absolute Auto 4.1 2.0 - 8.3 x10*3/uL [facility] Imm Gran Abs Auto 0.03 0.00 - 0.03 X10*3/uL [facility] Lymphocytes Absolute Auto 2.2 1.2 - 4.9 X10*3/uL [facility] Monocytes Absolute Auto 0.6 0.1 - 1.2 X10*3/uL [facility] Eosinophils Absolute Auto 0.6(H) 0.0 - 0.4 X10*3/uL [facility] Basophils Absolute Auto 0.1 0.0 - 0.2 X10*3/uL [facility] NRBC Abs Auto 0.000 0.0 - 0.012 X10*3/uL [facility] 09/27/2022 2:11 PM EST 09/27/2022 2:14 PM EST us [facility] External Provider LAB BLO OD ORDERABLES Final Result [facility] [address] [place] [phone] documented in this encounter Visit Diagnoses Not on filedocumented in this encounter Care Teams Grey Roll Man Relationship Specialty Start Date End Date Gordon Velez MD [address] [place] [phone] PCP - General Internal Medicine 11/30/19 documented as of this encounter
--- OUTSIDE RECORDS SUMMARY | 2024-12-10 12:06 | XMS_ITS | Encounter Summary ---
Author Organization [employer] Address [address] [facility] 7 [place] [address] Care Team Providers Care Key Account Coordinator Name Role Phone Gordon Velez MD Primary Care Prov ider Reason for Visit * Reason Onset Date Comments Referral 09/10/2023 Encounter Details Date Type Department Care Team ([facility] [address] Contact Info) Description 09/10/2023 Telephone [facility] [address] [place] [address] Gordon Velez MD [address] [place] [address] Referral Social History Tobacco Use Types Packs/Day [...] Pt states Mammo can be sent to [facility]. Ordersent as requested. Pt then stated needing a referral to [facility] eye care for routine DM [...] requesting for eye referral flavia sent to [facility]. States she is not able to make an appointment due to office not having a referral. documented in this encounter Plan of Treatment Not on file documented as of this encounter Visit Diagnoses Diagnosis Type 2 diabetes mellitus without complication, without long-term current use of insulin (CMS/[facility]) documented in this encounter Care Teams Key Account Coordinator Relationship Specialty Start Date End Date Gordon Velez MD [address] [place] [phone] PCP - General Internal Medicine 11/30/19 documented as of this encounter
--- OUTSIDE RECORDS SUMMARY | 2024-12-10 12:06 | XMS_ITS | Encounter Summary ---
Author Organization [employer] Address [address] [facility] 7t [place] [address] Care Team Providers Care Electrical Installation Inspector Name Role Phone Gordon Velez MD Primary Care Prov ider Reason for Visit * Reason Comments Med Refill Encounter Details Date Type Department Care Team (Late st Contact Info) Description 01/31/2024 Refill [facility] MED[facility]INE [address] [place] [address] Gordon Velez MD [address] [facility] [address] [place], [place] [phone] Severe persistent asthma without complication Social History [...] t he electric, gas, oil or water [employer] threatened to shut off services in your [...] complication documented in this encounter Care Teams Electrical Installation Inspector Relationship Specialty Start Date End Date Gordon Velez MD [address] [place] [phone] PCP - General Internal Medicine 11/30/19 documented as of this encounter
--- OUTSIDE RECORDS SUMMARY | 2024-12-10 12:06 | XMS_ITS | Encounter Summary ---
Author Organization [employer] Address [address] [facility] [address] [place] [address] Care Team Providers Care Union Organiser Name Role Phone Gordon Velez MD Primary Care Prov ider Reason for Visit * Reason Comments Med Refill Encounter Details Date Type Department Care Team ([facility] st Contact Info) Description 12/08/2024 Refill [facility] [address] [place], [place] [phone] Gordon Velez MD [address] [place] [address] Type 2 diabetes mellitus without complications (CMS/HCC) [...] documented as of this encounter Care Teams Union Organiser Relationship Specialty Start Date End Date Gordon Velez MD [address] [place] [phone] PCP - General Internal Medicine 11/30/19 documented as of this encounter
--- OUTSIDE RECORDS SUMMARY | 2024-12-10 12:06 | XMS_ITS | Encounter Summary ---
Author Organization [employer] Address [address] [facility] 7 [place] [address] Care Team Providers Care Explosive Ordnance Disposal Manager Name Role Phone Gordon Velez MD Primary Care Prov ider Reason for Visit * Reason Onset Date Comments Med Refill 12/07/2024 Encounter Details Date Type Department Care Team (Late st Contact Info) Description 12/07/2024 Refill [facility] MEDICINE [address] [place] [address] Gordon Velez MD [address] [place], [place] [phone] Type 2 diabetes mellitus without complications (CMS/HCC) [...] Base) MCG/ACT inhaler To be sent to: [facility] documented in this encounter Plan of Treatment Not on file documented as of this encounter Visit Diagnoses Diagnosis Type 2 diabetes mellitus without complications (CMS/HCC) documented in this encounter Additional Health Concerns Assessment Noted Time PHQ-9 Depression Total Score: 5 10/17/19 25 10:16 AM EDT documented as of this encounter Care Teams Explosive Ordnance Disposal Manager Relationship Specialty Start Date End Date Gordon Velez MD [address] [place] [phone] PCP - General Internal Medicine 11/30/19 documented as of this encounter
--- OUTSIDE RECORDS SUMMARY | 2024-12-10 12:06 | XMS_ITS | Encounter Summary ---
Author Organization [employer] Address [address] [facility] 7t [place] [address] Care Team Providers Care Front Facer Name Role Phone Gordon Velez MD Primary Care Prov ider Reason for Visit * Reason Onset Date Comments New Med Request 01/24/2024 Encounter Details Date Type Department Care Team (Late st Contact Info) Description 01/24/2024 Telephone [facility] MEDICINE [address] [place] [phone] Gordon Velez MD [address] [place], [place] [phone] New Med Request Social History Tobacco Use [...] on filedocumented in this encounter Care Teams Front Facer Relationship Specialty Start Date End Date Gordon Velez MD [address] [place] [phone] PCP - General Internal Medicine 11/30/19 documented as of this encounter
--- OUTSIDE RECORDS SUMMARY | 2024-12-10 12:06 | XMS_ITS | Encounter Summary ---
Author Organization [employer] Address [address] [facility] [address] [place] [address] Care Team Providers Care Lens Hardener Name Role Phone Gordon Velez MD Primary Care Prov ider Reason for Visit * Reason Onset Date Comments Medication Question 07/31/2024 Encounter Details Date Type Department Care Team ([facility] st Contact Info) Description 07/31/2024 Telephone [facility] MEDICINE [address] [place] [address] Gordon Velez MD [address] [place], [place] [phone] Medication Question Social History Tobacco Use Types [...] documented as of this encounter Care Teams Lens Hardener Relationship Specialty Start Date End Date Gordon Velez MD [address] [place] [address] PCP - General Internal Medicine 11/30/19 documented as of this encounter
--- OUTSIDE RECORDS SUMMARY | 2024-12-10 12:06 | XMS_ITS | Encounter Summary ---
Author Organization [employer] Address [address] [facility] 7t [place] [address] Care Team Providers Care Tandem Mill Roller Name Role Phone Gordon Velez MD Primary Care Prov ider Encounter Details Date Type Department Care Team ([facility] st Contact Info) Description 08/21/2023 Orders Only [facility] MED & PEDS [address] [place] [address] Gordon Velez MD [address] [place] [address] Social History Tobacco Use Types Packs/Day Years [...] on filedocumented in this encounter Care Teams Tandem Mill Roller Relationship Specialty Start Date End Date Gordon Velez MD [address] [place] [address] PCP - General Internal Medicine 11/30/19 documented as of this encounter
--- OUTSIDE RECORDS SUMMARY | 2024-12-10 12:06 | XMS_ITS | Encounter Summary ---
Author Organization [employer] Address [address] [facility] 7 [place] [address] Care Team Providers Care Plastic Molder Name Role Phone Gordon Velez MD Primary Care Prov ider Reason for Visit * Reason Comments Med Refill Encounter Details Date Type Department Care Team ([facility] st Contact Info) Description 07/30/2024 Refill [facility] CHC MED & PEDS [address] [place] [address] Gordon Velez MD [address] [place] [address] Chronic midline low back pain without sciatica [...] to pt regarding message below. Called via [employer] ID# [id number]. F/u with PCP Re: pain scheduled for 08/07/24 @10:30am. * Telephone Encounter - AUDI Woodard - 07/31/2024 5:18 PM EST Last med refill on 07/07/24 following televisit for hip pain. Does not appear to be on FACTORY SUPERINTENDENT. Will defer refill until PCP returns. She [...] documented as of this encounter Care Teams Plastic Molder Relationship Specialty Start Date End Date FamGordon Salas MD [address] [place] [address] PCP - General Internal Medicine 11/30/19 documented as of this encounter
--- OUTSIDE RECORDS SUMMARY | 2024-12-10 12:06 | XMS_ITS | Encounter Summary ---
Author Organization [employer] Address [address] [facility] 7t [place] [address] Care Team Providers Care Ordnance Engineer Name Role Phone Gordon Velez MD Primary Care Prov ider Encounter Details Date Type Department Care Team ([facility] st Contact Info) Description 05/13/2024 Orders Only [facility] CHC MED & PEDS [address] [place], [place] [phone] Gordon Velez MD [address] [place] [address] Social History Tobacco Use Types Packs/Day Years [...] (Free Thyroxine) 0.98 0.71 - 1.85 ng/dL [facility] 05/13/2024 2:24 PM EDT 05/13/2024 5:31 PM EDT us Generic External Data Provider LAB BLOOD ORDERAB LES Final Result [facility] [address] [place] [phone] * (ABNORMAL) TSH (05/13/2024 2:24 PM EDT) Thyroid Stimulating Hormone 0.20(L) 0.32 - 4.0 uIU/mL [facility] Comment:TSH 3rd Generation ( [facility]) 05/13/2024 2:24 PM EDT 05/13/2024 5:31 PM EDT us Generic External Data Provider LAB BLOOD ORDERAB LES Final Result [facility] [address] [place] [address] [phone] documented in this encounter Visit Diagnoses Not on filedocumented in this encounter Additional Health Concerns Assessment Noted Time PHQ-9 Depression Total Score: 18 024 1:56 PM EDT documented as of this encounter Care Teams Ordnance Engineer Relationship Specialty Start Date End Date Gordon Velez MD [address] [place] [phone] PCP - General Internal Medicine 11/30/19 documented as of this encounter
--- OUTSIDE RECORDS SUMMARY | 2024-12-10 12:06 | XMS_ITS | Encounter Summary ---
Author Organization [employer] Address [address] [facility] 7 [place] [address] Care Team Providers Care Optimization Manager Name Role Phone Gordon Velez MD Primary Care Prov ider Reason for Visit * Reason Onset Date Comments Referral 09/24/2023 Encounter Details Date Type Department Care Team ([facility] st Contact Info) Description 09/24/2023 Telephone [facility] [address] [place] [address] Gordon Velez MD [address] [place], [place] [phone] Referral Social History Tobacco Use Types Packs/Day [...] the past 12 months, has t he [employer], [employer], oil or water [employer] threatened to shut off services in your [...] was referred last month to GI at [facility]. Pt will be contacted when appts become available from their office. * Telephone Encounter - Macario Segura - 09/24/2023 12:52 PM EST TC from pt requesting new referral : DATE: N/A TIME:N/A Address: [address] [place] [address] Dr [address] Floor, [place] [address] Visits: N/A Facility Name: [facility] Type of Specialist: Gastroenterologists Phone # : [phone] Pt is requesting referral for a colonoscopy stated no concerns. If any questions you can contact pt at [phone] documented in this encounter Plan of Treatment Not on file documented as of this encounter Visit Diagnoses Not on filedocumented in this encounter Care Teams Optimization Manager Relationship Specialty Start Date End Date Gordon Velez MD [address] [place] [phone] PCP - General Internal Medicine 11/30/19 documented as of this encounter
--- OUTSIDE RECORDS SUMMARY | 2024-12-10 12:06 | XMS_ITS | Referral Summary ---
Author Organization [facility] Address [address] [place] [address] Care Team Providers Care Noxious Weeds And Pest Inspector Name Role Phone Verna Michael Mcclain Primary Care Provider + [phone] Allergies No known active allergies Medications traMADoL [...] Plan of Treatment Not on file Insurance [facility] [id number] Care Teams Noxious Weeds And Pest Inspector Relationship Specialty Start Date End Date Michael Gillespie [address] [place] [address] PCP - General Internal Medicine 11/24/20
[2024-12-10 12:15] LABS: Appearance Urine Cloudy; Color Urine Yellow; Glucose Urine UA Negative (Negative); Leukocyte Esterase Urine Large (3+) (Negative); Nitrite Urine Negative (Negative); UMIC TRIGGER UA YES; Urine Blood Negative (Negative); Urine Ketones Trace mg/dL (Negative); Urine Protein Negative (Neg-Trace)
[2024-12-10 12:21] LABS: Bacteria Urine 3+ (None Seen); Hyaline Casts Urine 0-2 /LPF (0-2); RBC Urine 0-2 /HPF (0-2); Squamous Epithelial Cell Urine 0-2 /HPF (0-2); WBC Urine >50 /HPF (0-5)
[2024-12-10 13:16] LABS: Alanine Aminotransferase 16 U/L (0-31); Albumin Level 4.4 g/dL (3.5-5.0); Alkaline Phosphatase 66 U/L (39-117); Anion Gap 13 (12-20); Aspartate Amino Transferase 24 U/L (5-31); Bilirubin Total 0.4 mg/dL (0.0-1.0); Blood Urea Nitrogen 14 mg/dL (9-16); Calcium 9.6 mg/dL (8.4-10.2); Carbon Dioxide 30 mmol/L (22-29); Chloride 105 mmol/L (96-108); Cholesterol 140 mg/dL (<200); Estimated Glomerular Filt Rate > 60; Glucose Random 100 mg/dL (60-115); HDL Cholesterol 38 mg/dL (>40); LDL Cholesterol Calculated 77 mg/dL (<100); Potassium 4.8 mmol/L (3.3-5.1); Sodium 143 mmol/L (135-145); Thyroid Stimulating Hormone 0.17 uIU/mL (0.32-4.0); Total Protein 7.4 g/dL (6.5-8.0); Triglycerides 127 mg/dL (<150)
[2024-12-11 19:18] LABS: Thyroglobulin 0.1 ng/mL; Thyroglobulin Antibodies <1 IU/mL (< or = 1)
[2024-12-14 07:23] LABS: Thyroglobulin Antibody <1 IU/mL (<=1); Thyroglobulin Level 0.1 ng/mL
== END 2024-12-10 10:44 | disposition home or self-care (01) ==
LOC: HO.LAB 10:43
PROVIDERS: Advanced Practice Midwife; Internal Medicine Medical Oncology; PCP Internal Medicine; Visit Provider Student in an Organized Health Care Education/Training Program
DX: E11.9 Type 2 diabetes mellitus without complications (principal); E03.9 Hypothyroidism, unspecified; C73 Malignant neoplasm of thyroid gland; D69.6 Thrombocytopenia, unspecified; R31.29 Other microscopic hematuria
CPT/HCPCS: 36415; 80053; 80061; 81001; 84432; 84439; 84443; 85025; 86800; 99212

== ENCOUNTER 2024-12-10 10:43 | Outpatient (AMB) | payer MEDICAID, SELFPAY ==
[2024-12-10 10:44] VITALS: BP 104/44; PULSE 65; O2SAT 90; BMI 28.1
--- NOTE | 2024-12-10 10:44 | A.OFFVIS_ITS ---
Vital Signs 3 12/10/24 10:44 12/10/24 11:15 Height 5 ft 2 in Weight 153 lb 10.595 oz BMI 28.1 BP 104/44 L 110/50 L Blood Pressure Location Lt brachial Lt brachial Position Sitting Sitting Pulse 65 Pulse Source Pulse Oximeter Pulse Oximetry (%) 90 L Oxygen Delivery Method Room Air Intake Visit Reasons: Thyroid cancer Intake Note: Patient present today for Thyroid cancer office visit. Briquetter Operator Required: Yes Briquetter Operator Language: Habitat Management Coordinator Services: Briquetter Operator Present Briquetter Operator Name: Dianne [id number] Information Interpreted: non-clinical & clinical Accompanied by: Spouse Allergies ibuprofen Allergy (Verified 12/10/24 10:49) Itching Medication List - Last Reconciled 12/10/24 by Nuris Wayne MD albuterol sulfate 90 mcg/actuation 2 puffs inhalation Q6H PRN aspirin 81 mg PO DAILY atorvastatin 40 mg PO DAILY blood sugar diagnostic (FreeStyle Lite Strips) As directed bupropion HCl XL 300 mg PO DAILY bupropion HCl XL 150 mg PO QAM calcium carbonate (Oyster Shell Calcium 500) 500 mg PO BID cholecalciferol (vitamin D3) 25 mcg PO DAILY diclofenac sodium 1% 2 grams topical TID docusate sodium 100 mg PO BID escitalopram oxalate 10 mg PO QAM fluticasone propionate 110 mcg/actuation (Flovent HFA) 1 puff inhalation BID fluticasone propionate 50 mcg/actuation 1 spray intranasal BID hydroxyzine HCl 50 mg PO BEDTIME lancets (TRUEplus Lancets) As directed lanolin jxqvfbf-dc-n.pet-ceres (Eucerin topical cream) 1 appl topical DAILY levothyroxine 137 mcg PO DAILY loratadine 10 mg PO DAILY PRN lorazepam 1 mg PO DAILY PRN mirtazapine 7.5 mg PO BEDTIME omeprazole 20 mg PO DAILY oxycodone-acetaminophen 5-325 mg 1 tab PO BEDTIME PRN polyethylene glycol 3350 17 grams PO DAILY sennosides (senna) 8.6 mg PO DAILY sitagliptin phosphate (Januvia) 100 mg PO DAILY HPI Comments Details: 62-year-old female has 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 Here today with daughter in law . Pt refused interpretation but daughter in law translating History is also significant for breast cancer that was treated with radiation therapy and her lower neck was included in her radiation field. 1997 HPI PTC in detail 03/09/2014: Total thyroidectomy Surgeon? Place? missing in chart and patient doesnt remember Pathology showed 2 foci of PTC each measuring 1 cm contained within the left lobe of the thyroid, there was microscopic extrathyroidal extension involving the perithyroidal tissue. Margins were negative. Lymphatic invasion of 1/1 perithyroidal lymph node. Right superior and a portion of the left inferior parathyroid glands were resected as well. Staging pT3 pN1 pMX. B Gene V600E mutation was negative. 06/21/2014: YANG 132.6 mCi of I 131. Post treatment scan revealed uptake within the left inferior thyroid bed. Labs from 06/14/2014 showed TSH of 39.4, TG 17, TG antibody less than 20 10/02/2021: WBS Whole-body scan revealed focal intense uptake within the left thyroid bed. Uptake was otherwise physiologic. Labs from 09/25/2021 with TSH 41.63, TG 1.7, TG antibody less than 1 10/16/2021: Ultrasound head and neck revealed mildly enlarged, normal-appearing lymph nodes in the left level 2 and 3 cervical regions. 10/16/2021: FNA biopsy of these lymph nodes with no evidence of malignancy and negative TG washout Subsequently she was referred to [facility] endocrine neoplasia at the time and saw Dr. Tejeda, and underwent ultrasound head and neck which revealed no pathologic appearing lymph nodes. She was asked to follow up in 6 weeks' time but failed to do so. 11/30/2022: WBS: Underwent I 131 with thyroid hormone withdrawal. Labs 11/23/2022 showed TSH of 46.3 with TG of 1.5, TG antibody negative. Whole-body scan revealed a persistent small focus of radiotracer uptake in the left neck, not significantly enlarged. Otherwise there was physiologic distribution of the radiotracer. 08/05/2023 TSH less than 0.01 Free T4 1.18 Thyroglobulin 0.1 TG antibody negative Labs 03/11/2024 showed TSH less than 0.01, free T4 1.79, TG less than 011, TG antibody less than 1 03/12/2024Levothyroxine dose reduced from 150 mcg to 137 mcg daily 04/10/2024 ultrasound neck showed bilateral normal looking lymph nodes, I reviewed the images myself. 05/13/2024 repeat labs showed TSH of 0.20, free T4 of 0.98. Interval history Says overall she is doing good, no complaints, forgot to do blood work prior to appointment currently taking levothyroxine 137 mcg daily Patient currently denies heat or cold intolerance, diarrhea or constipation, hair loss,, anxiety, weight changes, mood changes, low energy, changes in appearance of eyes or vision changes, Patient denies any difficulty swallowing, pain on swallowing or voice changes or difficulty breathing. Had neck radiation 1996 for breast cancer. Denies having ever used lithium, amiodarone or biotin supplements. Patient denies any family history of thyroid cancer or thyroid disease. Physical exam General: sitting comfortably in bed in no acute distress HEENT: normocephalic/atraumatic, Neck: supple, symmetrical, Cardiac: normal heart sounds Pulm: normal breath sounds B/L, no added breath sounds Abd: not distended, no tenderness Extremities: no edema, no signs of myxedema, mild tremors noted Neuro: AAO x3, Speech: normal, no facial droop, moving all 4 extremities Laboratory Tests 03/11/24 05/13/24 11:20 14:24 TSH < 0.01 L 0.20 L Free T4 1.79 0.98 Thyroglobulin <0.1 Thyroglobulin Antibody <1 Laboratory Tests 05/20/18 11/19/18 02/18/19 12:10 11:38 11:47 TSH Thyroglobulin 0.3 H 0.3 H 0.8 H Free T4 Thyroglobulin Fn Nl As Free T3 Thyroglobulin Antibody <1 <1 <1 03/09/19 06/12/19 08/12/19 10:12 12:05 08:26 TSH Thyroglobulin 2.4 H 0.1 H 0.3 H Free T4 Thyroglobulin Fn Nl As Free T3 Thyroglobulin Antibody <1 <1 <1 05/25/20 05/31/20 08/23/21 09:50 09:39 13:48 TSH 1.26 0.90 0.11 L Thyroglobulin 0.2 H 0.4 H 0.2 L Free T4 Thyroglobulin Fn Nl As Free T3 Thyroglobulin Antibody <1 <1 <1 09/18/21 09/25/21 10/30/21 10:55 10:32 12:30 TSH 24.73 H 41.63 H Thyroglobulin 1.3 L 1.7 L Free T4 < 0.40 L Thyroglobulin Fn Nl As <0.1 Free T3 Thyroglobulin Antibody <1 <1 11/17/21 01/23/22 06/04/22 08:30 10:50 13:16 TSH 2.07 0.03 L 0.02 L Thyroglobulin 0.2 L 0.2 L 0.3 L Free T4 1.05 1.50 1.12 Thyroglobulin Fn Nl As Free T3 Thyroglobulin Antibody <1 <1 <1 11/08/22 11/13/22 11/23/22 13:14 11:29 11:30 TSH 8.44 H 24.45 H 46.19 H Thyroglobulin 0.3 H 0.5 H 1.5 H Free T4 < 0.42 L < 0.42 L < 0.42 L Thyroglobulin Fn Nl As Free T3 Thyroglobulin Antibody <1 <1 <1 01/04/23 08/05/23 12:10 11:15 TSH 0.07 L < 0.01 L Thyroglobulin 0.1 H Free T4 1.28 1.18 Thyroglobulin Fn Nl As Free T3 3.9 Thyroglobulin Antibody <1 Laboratory Tests 05/13/24 14:24 TSH 0.20 L Free T4 0.98 US SOFT TISSUE NECK 04/10/24 CLINICAL INFORMATION: Personal history of malignant neoplasm thyroid. COMPARISON: Ultrasound-guided lymph node biopsy 10/30/2021. Ultrasound soft tissue neck 10/16/2021 and 07/27/2021. TECHNIQUE: Ultrasound of the neck soft tissues is performed with high- frequency perez-scale imaging and color Doppler. FINDINGS: THYROID BED: Prior thyroidectomy. No residual thyroid tissue demonstrated in the thyroid bed. No cystic or solid nodules demonstrated in the thyroid bed. RIGHT NECK SOFT TISSUES: Scattered architecturally normal nodes are present. The nodes show normal fatty hilus, normal cortical thickness, and no cystic change or calcification. No abnormal color flow. The largest nodes are as follows: Level 1B: 1.2 x 0.4 x 0.7 cm. Normal ryan architecture. Level 3: 1.2 x 0.3 x 1.0 cm. Normal ryan architecture. LEFT NECK SOFT TISSUES: Scattered architecturally normal nodes are present. The nodes show normal fatty hilus, normal cortical thickness, and no cystic change or calcification. No abnormal color flow. The largest nodes are as follows: Level 1A: 1.0 x 0.5 x 0.6 cm. Normal ryan architecture. Level 2: 0.5 x 0.2 x 0.5 cm. Normal ryan architecture. Level 3: 1.5 x 0.5 x 0.6 cm. Normal ryan architecture. US/US soft tiss head and/or neck IMPRESSION: 1. The thyroid gland is surgically absent. No abnormal mass or fluid collection is demonstrated within the thyroid bed. 2. There are scattered bilateral cervical lymph nodes, one at right level 3 borderline enlarged, with normal architectural features. Recommend management on a clinical basis. If clinically indicated further evaluation of the neck soft tissues and nodes may be performed with CT soft tissue neck with intravenous contrast. Electronically signed by: Curtis Soni MD 04/16/2024 07:03 PM EDT RP US SOFT TISSUE NECK 10/16/21 CLINICAL INFORMATION: Lymph node mapping. COMPARISON: Ultrasound 03/14/2020. TECHNIQUE: Ultrasound of the neck soft tissues was performed with high- frequency perez-scale imaging and color Doppler. FINDINGS: THYROID BED: Prior thyroidectomy. No residual thyroid tissue demonstrated in the thyroid bed. No cystic or solid nodules demonstrated in the thyroid bed. RIGHT NECK SOFT TISSUES: Scattered architecturally normal nodes are present. The nodes show normal fatty hilus, normal cortical thickness, and no cystic change or calcification. No abnormal color flow. The largest nodes are as follows: Level Ib: 0.72 x 0.35 x 0.61 cm. Normal ryan architecture. Not seen previously. Level Ib: 0.87 x 0.50 x 0.96 cm cm. Normal ryan architecture. Not seen previously. Level III: 0: 96 x 0.41 x 0.70 cm. Normal architecture. Previously measured 1.1 x 0.23 x 1.1 cm Level III: 0.76 x 0.60 x 0.3 cm. Normal architecture. Not seen previously. LEFT NECK SOFT TISSUES: Scattered architecturally normal nodes are present. The nodes show normal fatty hilus, normal cortical thickness, and no cystic change or calcification. No abnormal color flow. The largest nodes are as follows: Level III: 1.2 x 0.5 x 0.73 cm. Normal ryan architecture. Measured 1.7 x 0.50 x 0.72 cm previously. Level III: 1.1 x 0.36 x 0.71 cm cm. Normal ryan architecture. Not seen previously. Level III: 1.1 x 0.51 x 0.94 cm. Normal ryan architecture. Previously measured 1.8 x 0.50 x 0.92 cm. US/US soft tiss head and/or neck IMPRESSION: 1. Minimal improvement in the size of the lymph nodes, compared to the previous exam 03/14/2020. Some of the small lymph nodes were not seen previously but are less than 1 cm. US SOFT TISSUE NECK 07/27/21 CLINICAL INFORMATION: Lymph node mapping. COMPARISON: Ultrasound 03/14/2020. TECHNIQUE: Ultrasound of the neck soft tissues was performed with high- frequency perez-scale imaging and color Doppler. FINDINGS: THYROID BED: Prior thyroidectomy. No residual thyroid tissue demonstrated in the thyroid bed. No cystic or solid nodules demonstrated in the thyroid bed. RIGHT NECK SOFT TISSUES: Scattered architecturally normal nodes are present. The nodes show normal fatty hilus, normal cortical thickness, and no cystic change or calcification. No abnormal color flow. The largest nodes are as follows: Level Ib: 0.72 x 0.35 x 0.61 cm. Normal ryan architecture. Not seen previously. Level Ib: 0.87 x 0.50 x 0.96 cm cm. Normal ryan architecture. Not seen previously. Level III: 0: 96 x 0.41 x 0.70 cm. Normal architecture. Previously measured 1.1 x 0.23 x 1.1 cm Level III: 0.76 x 0.60 x 0.3 cm. Normal architecture. Not seen previously. LEFT NECK SOFT TISSUES: Scattered architecturally normal nodes are present. The nodes show normal fatty hilus, normal cortical thickness, and no cystic change or calcification. No abnormal color flow. The largest nodes are as follows: Level III: 1.2 x 0.5 x 0.73 cm. Normal ryan architecture. Measured 1.7 x 0.50 x 0.72 cm previously. Level III: 1.1 x 0.36 x 0.71 cm cm. Normal ryan architecture. Not seen previously. Level III: 1.1 x 0.51 x 0.94 cm. Normal ryan architecture. Previously measured 1.8 x 0.50 x 0.92 cm. US/US soft tiss head and/or neck IMPRESSION: 1. Minimal improvement in the size of the lymph nodes, compared to the previous exam 03/14/2020. Some of the small lymph nodes were not seen previously but are less than 1 cm. [facility] Medical History Hypotension Osteoarthritis of knees, bilateral Fibromyalgia Hyperparathyroidism Vitamin D deficiency History of thyroid cancer Postsurgical hypothyroidism H/O malignant neoplasm of skin Lumbar spondylosis Vitamin D deficiency Osteopenia Dyslipidemia Diabetic polyneuropathy associated with type 2 diabetes mellitus Post-surgical hypothyroidism Primary thyroid cancer Diabetes type 2, controlled Surgical History History of lip cancer History of biopsy History of bunionectomy Hx of cholecystectomy Hx of thyroidectomy Hx of colonoscopy History of carpal tunnel release Hx of hysterectomy Hx of mastectomy Family History Father Diabetes mellitus Mother Cancer of eye Skin cancer of nose Social History Household Members: None Housing: Apartment Are you a primary farm or ranch animal caretaker to a significant other at home: No Do you presently have visiting nurse or other home services: Yes (customer business manager) Unable to assess alcohol history related to: Unable to respond Alcohol intake: never Comment: ref alarm, ambulating in room Patient Tobacco Use Status: Current everyday Tobacco user Substance Use Type: Opiates service: No Current occupational status: disabled Physical Exam Vital Signs: Last Vital Signs Pulse 65 12/10/24 10:44 BP 104/44 L 12/10/24 10:44 Pulse Ox 90 L 12/10/24 10:44 Oxygen Delivery Method Room Air 12/10/24 10:44 BMI result Body Mass Index 28.1 Assessment & Plan Assessment & Plan (1) History of thyroid cancer: Code(s): Z85.850 - Personal history of malignant neoplasm of thyroid Category: Medical Plan: Patient with history of left lobe multifocal PTC with 2 foci each 1 cm, status post total thyroidectomy in February of 2014, AJCC stage I disease (pT3 pN1 MX), KEKE intermediate risk of recurrence due to microscopic extrathyroidal extension involving the perithyroidal tissue. Margins were negative. Lymphatic invasion of 1/1 perithyroidal lymph node. KEKE indeterminate response. Over the last many years she has been followed with serial ultrasounds, whole- body scan and TG levels. Her Non stimulated Tg levels have mostly been in the range within the range of 0.1-0.5 and stimulated within the range of 1.5-1.7, more or less stable. I would classify her as KEKE indeterminate response to therapy due to mildly detectable TG levels intermittently.. While she has had some focal uptake on her left side of whole-body scan, with last 1 being in December 11, her ultrasounds have not shown any suspicious lymph nodes, and previously when they did in , biopsy was negative for malignancy. Most recent ultrasound from March 2024 without any abnormal lymph nodes, showed bilateral normal looking lymph nodes. Labs from February 2024 showed undetectable TG levels however TSH was suppressed. I will plan to repeat her thyroglobulin tumor markers in 6 months from now which would be around November 2024 to reclassify her according to dynamic risk stratification. In February 2024 I also reduced her levothyroxine dose from 150 mcg to 137 mcg daily because her TSH was suppressed, and our goal TSH is anywhere between 0.1-0.5. Now 137 mcg daily of levothyroxine most recent labs from April 2024 showed TSH of 0.2 which is within goal. She does have mild symptoms of palpitations intermittently , however we will continue to keep her on this dose for now , she was supposed to get blood work done prior to this appointment but forgot. I have asked her to do blood work today. In indeterminate response, 15% to 20% we will have structural disease identified during follow-up, however in the remainder of the nonspecific changes are either stable or resolved, less than 1% have disease specific Plan: -plan to repeat ultrasound of the neck in 1 year from the last 1 sometime around March 2025 , ordered to be done prior to follow up in April 2025 Already has orders for TSH, free T4, TG and TG antibody levels to be done now, we will reach out with the results -continue levothyroxine 137 mcg daily., will need refills once results are in (2) Postsurgical hypothyroidism: Code(s): E89.0 - Postprocedural hypothyroidism Category: Medical Plan: Patient with postsurgical hypothyroidism after total thyroidectomy due to thyroid cancer. She is currently KEKE indeterminate response to therapy due to mildly elevated but stable thyroglobulin levels. Her goal TSH at this time is 0.1-0.5. Labs from February 2024 showed undetectable TG levels however TSH was suppressed. I will plan to repeat her thyroglobulin tumor markers in 6 months from now which would be around November 2024 to reclassify her according to dynamic risk stratification. In February 2024 I also reduced her levothyroxine dose from 150 mcg to 137 mcg daily because her TSH was suppressed, and our goal TSH is anywhere between 0.12-0.5. Now 137 mcg daily of levothyroxine most recent labs from April 2024 showed TSH of 0.2 which is within goal. She was supposed to get blood work done prior to this appointment, however forgot, I have asked her to do blood work today. Plan: -obtain TSH and free T4 levels now -continue levothyroxine 137 mcg daily Plan See above Orders: Orders 2 US soft tiss head and/or neck 04/05/25 Z85.850 - Personal history of malignant neoplasm of thyroid Patient Instructions: Do blood work today , we will reach out with results Do ultrasound of the neck sometime in March 2025, before your follow up in April 2025 Coding Level of Care Code Est Pt Level 4 (13066) Diagnoses History of thyroid cancer Z85.850 Postsurgical hypothyroidism E89.0
[2024-12-10 11:15] VITALS: BP 110/50
--- OUTSIDE RECORDS SUMMARY | 2024-12-10 11:24 | XMS_ITS | Encounter Summary ---
Author Organization [employer] Address [address] [facility] 7 [place] [address] Care Team Providers Care Grain Loader Name Role Phone Gordon Velez MD Primary Care Prov ider Reason for Visit * Reason Onset Date Comments Prior Authorization 10/01/2024 Encounter Details Date Type Department Care Team (Late st Contact Info) Description 10/01/2024 Telephone [facility] MED[facility]INE [address] [place] [address] Gordon Velez MD [address] [place], [place] [phone] Prior Authorization Social History Tobacco Use Types [...] TRUEplus Lancets 33G misc. Contact pt at [phone] * Telephone Encounter - Alec Moran - 10/01/2024 12:35 PM EDT Tc from pt requesting PA for med TRUEplus Lancets 33G misc. Contact pt at [phone] documented in this encounter Plan of Treatment Not on file documented as of this encounter Visit Diagnoses Not on filedocumented in this encounter Additional Health Concerns Assessment Noted Time PHQ-9 Depression Total Score: 18 024 1:56 PM EDT documented as of this encounter Care Teams Grain Loader Relationship Specialty Start Date End Date Gordon Velez MD [address] [place] [address] PCP - General Internal Medicine 11/30/19 documented as of this encounter
--- OUTSIDE RECORDS SUMMARY | 2024-12-10 11:24 | XMS_ITS | Encounter Summary ---
Author Organization [employer] Address [address] [facility] [address] [place] [address] Care Team Providers Care Heel Burnisher Name Role Phone Gordon Velez MD Primary Care Prov ider Encounter Details Date Type Department Care Team ([facility] st Contact Info) Description 10/07/2024 Orders Only [facility] PEDS [address] [place] [address] Gordon Velez MD [address] [place] [address] Type 2 diabetes mellitus without complication, without long-term current use of insulin ([facility]) Social History Tobacco Use Types [...] as of this encounter Plan of Treatment Not on file documented as of this encounter Visit Diagnoses Diagnosis Type 2 diabetes mellitus without complication, without long-term current use of insulin ([facility]) documented in this encounter Additional Health Concerns Assessment Noted Time PHQ-9 Depression Total Score: 18 024 1:56 PM EDT documented as of this encounter Care Teams Heel Burnisher Relationship Specialty Start Date End Date Gordon Velez MD [address] [place] [id number] PCP - General Internal Medicine 11/30/19 documented as of this encounter
--- OUTSIDE RECORDS SUMMARY | 2024-12-10 11:25 | XMS_ITS | Encounter Summary ---
Author Organization [employer] Address [address] [facility] [address] [place] [address] Care Team Providers Care Pct Name Role Phone Gordon Velez MD Primary Care Prov ider Reason for Visit * Reason Onset Date Comments Med Request 09/17/2024 Encounter Details Date Type Department Care Team ([facility] st Contact Info) Description 09/17/[address] [facility] MEDICINE [address] [place] [address] Gordon Velez MD [address] [place], [place] [phone] Med Request Social History Tobacco Use Types [...] AM EST Tc from pt requesting medication Nfhhcuz-Wnqvuwb-Epjowk Collin (Medicated Pain Relieving) 1.2-5.7-6.3 % patch to be sent to [facility], pt inform she needs a better dosage for pain. documented in this encounter Plan of Treatment Not on file documented as of this encounter Visit Diagnoses Not on filedocumented in this encounter Additional Health Concerns Assessment Noted Time PHQ-9 Depression Total Score: 18 024 1:56 PM EDT documented as of this encounter Care Teams Pct Relationship Specialty Start Date End Date Gordon Velez MD [address] [place] [address] PCP - General Internal Medicine 11/30/19 documented as of this encounter
--- OUTSIDE RECORDS SUMMARY | 2024-12-10 11:25 | XMS_ITS | Encounter Summary ---
Author Organization [employer] Address [address] [facility] [address] [place] [address] Care Team Providers Care Technical Customer Support Specialist Name Role Phone Gordon Velez MD Primary Care Prov ider Reason for Visit * Reason Onset Date Comments New Med Request 01/24/2024 Encounter Details Date Type Department Care Team (Late st Contact Info) Description 01/24/2024 Telephone [facility] MEDICINE [address] [place] [address] Gordon Velez MD [address] [place], [place] [phone] New Med Request Social History Tobacco Use [...] on filedocumented in this encounter Care Teams Technical Customer Support Specialist Relationship Specialty Start Date End Date Gordon Velez MD [address] [place] [id number] PCP - General Internal Medicine 11/30/19 documented as of this encounter
--- OUTSIDE RECORDS SUMMARY | 2024-12-10 11:25 | XMS_ITS | Encounter Summary ---
Author Organization [employer] Address 75 [facility] 7 [place] [address] Care Team Providers Care Games Manager Name Role Phone Gordon Velez MD Primary Care Prov ider Reason for Visit * Reason Onset Date Comments Med Refill 12/07/2024 Encounter Details Date Type Department Care Team (Late st Contact Info) Description 12/07/2024 Refill [facility] [address] [place] [address] Gordon Velez MD [address] [place], [place] [phone] Type 2 diabetes mellitus without complications (CMS/HCC) Social History Tobacco Use Types Packs/Day Years [...] encounter Miscellaneous Notes * Telephone Encounter - Shannan Greene LPN - 12/07/2024 9:18 AM EDT albuterol (Ventolin HFA) 108 (90 Base) MCG/ACT inhaler should have refills.Last seen 11.16.24 * Telephone Encounter - Lorrie Sheppard - 12/07/2024 9:03 AM EDT TC from pt requesting medication refill. Medications needing refill : SITagliptin (Januvia) 100 MG tablet albuterol (Ventolin HFA) 108 (90 Base) MCG/ACT inhaler To be sent to: [facility] documented in this encounter Plan of Treatment Not on file documented as of this encounter Visit Diagnoses Diagnosis Type 2 diabetes mellitus without complications (CMS/HCC) documented in this encounter Additional Health Concerns Assessment Noted Time PHQ-9 Depression Total Score: 5 10/17/19 25 10:16 AM EDT documented as of this encounter Care Teams Games Manager Relationship Specialty Start Date End Date Gordon Velez MD [address] [place] [address] PCP - General Internal Medicine 11/30/19 documented as of this encounter
--- OUTSIDE RECORDS SUMMARY | 2024-12-10 11:25 | XMS_ITS | Encounter Summary ---
Author Organization [employer] Address 75 [facility] 7 [place] [address] Care Team Providers Care Closing Specialist Name Role Phone Gordon Velez MD Primary Care Prov ider Reason for Visit * Reason Onset Date Comments Med Refill 06/02/2024 Encounter Details Date Type Department Care Team ([facility] st Contact Info) Description 06/02/2024 Telephone [facility] [address] [place] [address] Gordon Velez MD [address] [place], [place] [phone] Med Refill Social History Tobacco Use Types [...] 50 MG tablet To be sent to: [facility] - [place], [place] - [address] documented in this encounter Plan of Treatment Not on file documented as of this encounter Visit Diagnoses Not on filedocumented in this encounter Additional Health Concerns Assessment Noted Time PHQ-9 Depression Total Score: 18 024 1:56 PM EDT documented as of this encounter Care Teams Closing Specialist Relationship Specialty Start Date End Date Gordon Velez MD [address] [place] [address] PCP - General Internal Medicine 11/30/19 documented as of this encounter
--- OUTSIDE RECORDS SUMMARY | 2024-12-10 11:25 | XMS_ITS | Encounter Summary ---
Author Organization [employer] Address 75 [facility] 7 [place] [address] Care Team Providers Care Core Inspector Name Role Phone Gordon Velez MD Primary Care Prov ider Reason for Visit * Reason Comments Med Refill Encounter Details Date Type Department Care Team ([facility] st Contact Info) Description 08/13/2024 Refill [facility] MED & PEDS 505 [place] [address] Gordon Velez MD 505 [place] [address] Social History Tobacco Use Types Packs/Day Years [...] as of this encounter Care Teams Core Inspector Relationship Specialty Start Date End Date Gordon Velez MD [address] [place] [address] PCP - General Internal Medicine 11/30/19 documented as of this encounter
--- OUTSIDE RECORDS SUMMARY | 2024-12-10 11:25 | XMS_ITS | Encounter Summary ---
Author Organization [employer] Address 75 [facility] 7 [place] [address] Care Team Providers Care Research Technician Name Role Phone Gordon Velez MD Primary Care Prov ider Reason for Visit * Reason Comments Med Refill Encounter Details Date Type Department Care Team ([facility] st Contact Info) Description 11/15/2024 Refill [facility] CHC MED & PEDS [address] [place] [address] Gordon Velez MD 505 [place] [address] Severe persistent asthma without complication Social History [...] asthma without complication documented in this encounter Additional Health Concerns Assessment Noted Time PHQ-9 Depression Total Score: 5 10/17/19 25 10:16 AM EDT documented as of this encounter Care Teams Research Technician Relationship Specialty Start Date End Date Gordon Velez MD [address] [place] [address] PCP - General Internal Medicine 11/30/19 documented as of this encounter
--- OUTSIDE RECORDS SUMMARY | 2024-12-10 11:25 | XMS_ITS | Encounter Summary ---
Author Organization [employer] Address 75 [facility] 7 [place] [address] Care Team Providers Care Printed Circuit Boards Plasma Etcher Name Role Phone Gordon Velez MD Primary Care Prov ider Reason for Visit * Reason Comments Med Refill Encounter Details Date Type Department Care Team ([facility] st Contact Info) Description 07/30/2024 Refill [facility] CHC MED & PEDS 505 [place] [address] Gordon Velez MD 505 [place] [address] Chronic midline low back pain without sciatica [...] Harris RN - 08/03/2024 10:09 AM EST Dariuszi. TC to pt regarding message below. Called via M[employer]ia[employer] ID# [id number]. F/u with PCP Re: pain scheduled for 08/07/24 @10:30am. * Telephone Encounter - AUDI Woodard - 07/31/2024 5:18 PM EST Last med refill on 07/07/24 following televisit for hip pain. Does not appear to be on TONGUE LINING STITCHER. Will defer refill until PCP returns. She [...] documented as of this encounter Care Teams Printed Circuit Boards Plasma Etcher Relationship Specialty Start Date End Date FamGordon Salas MD [address] [place] [address] PCP - General Internal Medicine 11/30/19 documented as of this encounter
--- OUTSIDE RECORDS SUMMARY | 2024-12-10 11:25 | XMS_ITS | Encounter Summary ---
Author Organization [employer] Address 75 [facility] 7 [place] [address] Care Team Providers Care Grocery Clerk Selling Name Role Phone Gordon Velez MD Primary Care Prov ider Reason for Visit * Reason Onset Date Comments Mamogram Order 05/15/2024 Encounter Details Date Type Department Care Team ([facility] st Contact Info) Description 05/15/2024 Telephone [facility] 230 [place] [address] Gordon Velez MD 505 [place], [place] [phone] Mamogram Order Social History Tobacco Use Types [...] any questions you can contact pt at [phone]. (Greek Speaker) documented in this encounter Plan of Treatment Not on file documented as of this encounter Visit Diagnoses Not on filedocumented in this encounter Additional Health Concerns Assessment Noted Time PHQ-9 Depression Total Score: 18 024 1:56 PM EDT documented as of this encounter Care Teams Grocery Clerk Selling Relationship Specialty Start Date End Date Gordon Velez MD [address] [place] [id number] PCP - General Internal Medicine 11/30/19 documented as of this encounter
--- OUTSIDE RECORDS SUMMARY | 2024-12-10 11:25 | XMS_ITS | Clinical Summary ---
Author Organization 175 [facility] Address [address] [place] [address] Phone Care Team Providers Care Senior Quality Control Technician Name Role Phone Gordon Velez Primary Care [...] propionate (FLONASE) 50 mcg/actuation nasal spray 1 [place] by Each Nare route 2 times daily. [...] Diagnosed Date T2DM (type 2 diabetes mellitus) ([facility] V24, CM S/[facility] V28) 06/01/2024 Hyperlipidemia associated wi th type 2 diabetes mellitus ([facility] V24, [facility] V28) 06/01/2024 Social History Tobacco Use Types Packs/Day [...] Influencers of Health Screening 06/19/2022 COVID-19 Vaccine ( - 2023-2 5 season) 2024 Diabetes: Annual [...] topic Insurance MEDICAID - [place] Care Teams Senior Quality Control Technician Relationship Specialty Start Date End Date Gordon Velez [address] [place] [id number] PCP - General Internal Medicine 05/15/24
--- OUTSIDE RECORDS SUMMARY | 2024-12-10 11:25 | XMS_ITS | Encounter Summary ---
Author Organization [employer] Address 75 [facility] 7 [place] [address] Care Team Providers Care Gas Technician Name Role Phone Gordon Velez MD Primary Care Prov ider Reason for Visit * Reason Comments Med Refill Encounter Details Date Type Department Care Team ([facility] st Contact Info) Description 12/08/2024 Refill [facility] CHC MED & PEDS 505 [place], [place] [phone] Gordon Velez MD 505 [place] [address] Type 2 diabetes mellitus without complications (CMS/HCC) [...] housing situation today? I have wandacathie ibrahim 03/30/[address] [...] documented as of this encounter Care Teams Gas Technician Relationship Specialty Start Date End Date Gordon Velez MD [address] [place] [address] PCP - General Internal Medicine 11/30/19 documented as of this encounter
--- OUTSIDE RECORDS SUMMARY | 2024-12-10 11:25 | XMS_ITS | Encounter Summary ---
Author Organization [employer] Address 75 [facility] 7 [place] [address] Care Team Providers Care Control Room Supervisor Name Role Phone Gordon Velez MD Primary Care Prov ider Encounter Details Date Type Department Care Team ([facility] st Contact Info) Description 11/21/2022 Orders Only [facility] CHC MED & PEDS [address] [place], [place] [phone] Gordon Velez MD 505 [place] [address] Social History Tobacco Use Types Packs/Day Years [...] on filedocumented in this encounter Care Teams Control Room Supervisor Relationship Specialty Start Date End Date Gordon Velez MD [address] [place] [address] PCP - General Internal Medicine 11/30/19 documented as of this encounter
--- OUTSIDE RECORDS SUMMARY | 2024-12-10 11:25 | XMS_ITS | Encounter Summary ---
Author Organization [employer] Address 75 [facility] 7 [place] [address] Care Team Providers Care Pottery Machine Operator Name Role Phone Gordon Velez MD Primary Care Prov ider Reason for Visit * Reason Onset Date Comments Med Refill 12/08/2024 Encounter Details Date Type Department Care Team (Late st Contact Info) Description 12/08/2024 Telephone [facility] [address] [place] [address] Gordon Velez MD 505 [place], [place] [phone] Med Refill Social History Tobacco Use Types [...] encounter Miscellaneous Notes * Telephone Encounter - Katey Campos LPN - 12/08/2024 10:27 AM EDT Medication pended to PCP. * Telephone Encounter - Lorrie Sheppard - 12/08/2024 10:17 AM EDT TC from pt requesting medication refill. Medications needing refill : SITagliptin (Januvia) 100 MG tablet [facility] [place] [facility] [address] [facility] documented in this encounter Plan of Treatment Not on file documented as of this encounter Visit Diagnoses Not on filedocumented in this encounter Additional Health Concerns Assessment Noted Time PHQ-9 Depression Total Score: 5 10/17/19 25 10:16 AM EDT documented as of this encounter Care Teams Pottery Machine Operator Relationship Specialty Start Date End Date Gordon Velez MD [address] [place] [address] PCP - General Internal Medicine 11/30/19 documented as of this encounter
--- OUTSIDE RECORDS SUMMARY | 2024-12-10 11:25 | XMS_ITS | Encounter Summary ---
Author Organization [employer] Address [address] [place] [address] Care Team Providers Care Carpet Journeyman Name Role Phone Gordon Velez MD Primary Care Prov ider Encounter Details Date Type Department Care Team ([facility] Contact Info) Description 07/18/2022 Telephone C CHC MED & PEDS 505 [place], [place] [phone] Gordon Velez MD 505 [place], [place] [phone] Social History Tobacco Use Types Packs/Day Years [...] on filedocumented in this encounter Care Teams Carpet Journeyman Relationship Specialty Start Date End Date Gordon Velez MD 505 [place], [place] [phone] PCP - General Internal Medicine 11/30/19 documented as of this encounter
--- OUTSIDE RECORDS SUMMARY | 2024-12-10 11:25 | XMS_ITS | Encounter Summary ---
Author Organization [employer] Address 75 [facility] 7 [place] [address] Care Team Providers Care Bufferer Name Role Phone Gordon Velez MD Primary Care Prov ider Reason for Visit * Reason Onset Date Comments Medication Question 07/31/2024 Encounter Details Date Type Department Care Team ([facility] st Contact Info) Description 07/31/2024 Telephone [facility] 230 [place] [address] Gordon Velez MD [address] [place], [place] [phone] Medication Question Social History Tobacco Use Types [...] documented as of this encounter Care Teams Bufferer Relationship Specialty Start Date End Date Gordon Velez MD [address] [place] [address] PCP - General Internal Medicine 11/30/19 documented as of this encounter
--- OUTSIDE RECORDS SUMMARY | 2024-12-10 11:25 | XMS_ITS | Encounter Summary ---
Author Organization [employer] Address [address] [address] Care Team Providers Care Orthopedic Nurse Practitioner Name Role Phone Gordon Velez MD Primary Care Prov ider Reason for Visit * Reason Onset Date Comments PT1 02/06/2023 Encounter Details Date Type Department Care Team ([facility] Contact Info) Description 02/06/2023 Telephone [facility] CHC MED & PEDS 505 [place] [address] Gordon Velez MD 505 [place] [address] PT1 Social History Tobacco Use Types Packs/Day [...] requesting PT1 Date: 02/21/23 Time: 12:15 Address: [address] [place] [address] Specialty: endocrinology Bar Assistant: yes Wheelchair: no, cane documented in this encounter Plan of Treatment Not on file documented as of this encounter Visit Diagnoses Not on filedocumented in this encounter Care Teams Orthopedic Nurse Practitioner Relationship Specialty Start Date End Date Gordon Velez MD [address] [place] [address] PCP - General Internal Medicine 11/30/19 documented as of this encounter
--- OUTSIDE RECORDS SUMMARY | 2024-12-10 11:25 | XMS_ITS | Encounter Summary ---
Author Organization [employer] Address 75 [facility] 7 [place] [address] Care Team Providers Care Coastal Tug Mate Name Role Phone Gordon Velez MD Primary Care Prov ider Reason for Visit * Reason Onset Date Comments Med Refill 11/04/2024 Encounter Details Date Type Department Care Team ([facility] st Contact Info) Description 11/04/2024 Telephone [facility] CHC MED & PEDS [address] [place] [address] Gordon Velez MD 505 [place] [address] Med Refill Social History Tobacco Use Types [...] Telephone Encounter - Brandi Levine RN - 11/04/2024 4:48 PM EDT Per alert in pt chart. PCP will not be refilling med. IMAGING ACCOUNT MANAGER nurses tried contacting pt to inform. * Telephone Encounter - Kasandra Vidal - 11/04/2024 12:50 PM EDT TC from pt requesting medication refill. Medications needing refill : oxyCODONE-acetaminophen (Percocet) 5-325 MG tablet To be sent to: [facility] - [place] - [address] [facility] documented in this encounter Plan of Treatment Not on file documented as of this encounter Visit Diagnoses Not on filedocumented in this encounter Additional Health Concerns Assessment Noted Time PHQ-9 Depression Total Score: 5 10/17/19 25 10:16 AM EDT documented as of this encounter Care Teams Coastal Tug Mate Relationship Specialty Start Date End Date Gordon Velez MD [address] [place] [address] PCP - General Internal Medicine 11/30/19 documented as of this encounter
--- OUTSIDE RECORDS SUMMARY | 2024-12-10 11:25 | XMS_ITS | Encounter Summary ---
Author Organization [employer] Address 75 [facility] 7 [place] [address] Care Team Providers Care Watch Repair Person Name Role Phone Gordon Velez MD Primary Care Prov ider Reason for Visit * Reason Onset Date Comments Med Refill 06/28/2023 Encounter Details Date Type Department Care Team ([facility] st Contact Info) Description 06/28/2023 Telephone [facility] CHC MED & PEDS [address] [place] [address] Gordon Velez MD [address] [place] [address] Med Refill Social History Tobacco Use Types [...] Medication is currently inactive Please sent to [facility] - [place] - [address] [place] [address] documented in this encounter Plan of Treatment Not on file documented as of this encounter Visit Diagnoses Not on filedocumented in this encounter Care Teams Watch Repair Person Relationship Specialty Start Date End Date Gordon Velez MD 505 [facility] [place] [address] PCP - General Internal Medicine 11/30/19 documented as of this encounter
--- OUTSIDE RECORDS SUMMARY | 2024-12-10 11:25 | XMS_ITS | Encounter Summary ---
Author Organization [employer] Address [address] [facility] 7t [place] [address] Care Team Providers Care Meat Molder Name Role Phone Gordon Velez MD Primary Care Prov ider Encounter Details Date Type Department Care Team (Late st Contact Info) Description 07/10/2022 Orders Only [facility] MED & PEDS [address] [place] [address] Katey Campos LPN Social History Tobacco Use [...] on file documented as of this encounter Procedures Procedure [...] AM EDT) Thyroglobulin Antibody <1 <=1 IU/mL [facility] Comment:This Thyroglobulin a ntibody test was performedusing the [employer] Chemiluminescent method.Values obtained from different assay methods cannot beused interchangeably. Thyroglobulin antibody levels,regardless of value, should not be interpreted asabsolute evidence of the presence or absence ofdisease. Thyroglobulin, LC/MS/MS TNP [facility] Thyroglobulin Level 0.5(A) ng/mL [facility] Comment:Reference Range: Ath yrotic: <0.1 ng/mLReference range applies to differentiated thyroidcancer patients following treatment. The presence ofmeasurable thyroglobulin indicates the presence ofthyroglobulin-producing thyroid tissue. Clinicalcorrelation is advised.This Thyroglobulin test was performed using theEcoark Chemiluminescent method. Valuesobtained from different assay methods cannot beused interchangeably. Thyroglobulin levels, regardlessof value, should not be interpreted as absoluteevidence of the presence or absence of disease.THIS TEST WAS PERFORMED AT:[employer]/[id number] [place] [address]KDZSSBT Omer REID MD,PHD 11/13/2022 11:2 9 AM EDT 11/13/2022 11:29 AM EDT [facility] External Provider LAB BLO OD ORDERABLES Final Result Performing Organization Address [facility] de Phone Number [facility] [address] [place] [phone] * (ABNORMAL) TSH (11/13/2022 11:29 AM EDT) Thyroid Stimulating Hormone 24.45(H) 0.32 - 4.0 uIU/mL [facility] Comment:Note: A sustained TS H level above 2.5 uIU/mL may warrant further investigation. TSH 3rd Generation ([facility]) 11/13/2022 11:2 9 AM EDT 11/13/2022 11:29 AM EDT [facility] External Provider LAB BLO OD ORDERABLES Final Result Performing Organization Address [facility] de Phone Number [facility] [address] [place] [phone] * (ABNORMAL) T4, Free (11/13/2022 11:29 AM EDT) Free T4 (Free Thyroxine) <0.42(L) 0.71 - 1.85 ng/dL [facility] 11/13/2022 11:2 9 AM EDT 11/13/2022 11:29 AM EDT [facility] External Provider LAB BLO OD ORDERABLES Final Result Performing Organization Address City/[facility] Co de Phone Number [facility] [address] [place] [phone] [phone] * (ABNORMAL) Thyroblobulin, Tumor Marker w/Reflex (11/08/2022 1:14 PM EDT) Thyroglobulin Antibody <1 <=1 IU/mL [facility] Comment:This Thyroglobulin a ntibody test was performedusing the Ecoark Chemiluminescent method.Values obtained from different assay methods cannot beused interchangeably. Thyroglobulin antibody levels,regardless of value, should not be interpreted asabsolute evidence of the presence or absence ofdisease. Thyroglobulin, LC/MS/MS TNP [facility] Thyroglobulin Level 0.3(A) ng/mL [facility] Comment:Reference Range: Ath yrotic: <0.1 ng/mLReference range applies to differentiated thyroidcancer patients following treatment. The presence ofmeasurable thyroglobulin indicates the presence ofthyroglobulin-producing thyroid tissue. Clinicalcorrelation is advised.This Thyroglobulin test was performed using theEcoark Chemiluminescent method. Valuesobtained from different assay methods cannot beused interchangeably. Thyroglobulin levels, regardlessof value, should not be interpreted as absoluteevidence of the presence or absence of disease.THIS TEST WAS PERFORMED AT:[employer]/[facility] [place] [address]NTARUJZEDVIN REID MD,PHD 11/08/2022 1:14 PM EDT 11/08/2022 1:14 PM EDT us [facility] External Provider LAB BLO OD ORDERABLES Final Result Performing Organization Address City/[facility]/ZIP Co de Phone Number [facility] [address] [place] [phone] [phone] * (ABNORMAL) TSH (11/08/2022 1:14 PM EDT) Thyroid Stimulating Hormone 8.44(H) 0.32 - 4.0 uIU/mL [facility] Comment:Note: A sustained TS H level above 2.5 uIU/mL may warrant further investigation. TSH 3rd Generation ([facility]) 11/08/2022 1:14 PM EDT 11/08/2022 1:14 PM EDT [facility] External Provider LAB BLO OD ORDERABLES Final Result Performing Organization Address [facility]/ZIP Co de Phone Number [facility] [address] [place] [phone] * (ABNORMAL) T4, Free (11/08/2022 1:14 PM EDT) Free T4 (Free Thyroxine) <0.42(L) 0.71 - 1.85 ng/dL [facility] 11/08/2022 1:14 PM EDT 11/08/2022 1:14 PM EDT [facility] External Provider LAB BLO OD ORDERABLES Final Result Performing Organization Address [facility] Co de Phone Number [facility] [address] [place] [phone] * (ABNORMAL) Sed Rate by Modified Gabyren (10/22/2022 10:13 AM EDT) Erythrocyte Sedimentation Rate 26(H) 0 - 20 MM/HR [facility] Comment:Patients with polycy themia and many hemoglobin abnormalitiesmay have depressed sed rates whereas patients with anemiamay have elevated sed rates. 10/22/2022 10:1 3 AM EDT 10/22/2022 10:13 AM EDT [facility] External Provider LAB BLO OD ORDERABLES Final Result Performing Organization Address [facility] Co de Phone Number [facility] [address] [place] [phone] * (ABNORMAL) C-reactive Protein (10/22/2022 10:13 AM EDT) C Reactive Protein 1.98(H) < or = 0.50 mg/dL [facility] 10/22/2022 10:1 3 AM EDT 10/22/2022 10:13 AM EDT [facility] External Provider LAB BLO OD ORDERABLES Final Result Performing Organization Address [facility] de Phone Number [facility] [address] [place] [phone] * ALT (10/22/2022 10:13 AM EDT) Alanine Aminotransferase 18 0 - 31 U/L [facility] 10/22/2022 10:1 3 AM EDT 10/22/2022 10:13 AM EDT [facility] External Provider LAB BLO OD ORDERABLES Final Result Performing Organization Address [facility] Co de Phone Number [facility] [address] [place] [phone] * AST (10/22/2022 10:13 AM EDT) Pathologist [facility] Aspartate Amino Transferase 20 5 - 31 U/L [facility] 10/22/2022 10:1 3 AM EDT 10/22/2022 10:13 AM EDT [facility] External Provider LAB BLO OD ORDERABLES Final Result Performing Organization Address [facility] de Phone Number [facility] [address] [place] [phone] * Creatinine, Serum (10/22/2022 10:13 AM EDT) Creatinine, Serum 0.76 0.5 - 1.4 mg/dL [facility] Estimated Glomerular Filt Rate >60 [facility] Comment:NOTE: For -Am erican individuals, multiply the result by 1.210.Chronic Kidney Disease: Estimated GFR < 60 mL/min/1.99d1Pyomql Kidney Disease: Estimated GFR < 15 mL/min/1.73m2 10/22/2022 10:1 3 AM EDT 10/22/2022 10:13 AM EDT us [facility] External Provider LAB BLO OD ORDERABLES Final Result [facility] [address] [place] [phone] [phone] * Tramadol, urine (10/22/2022 10:12 AM EDT) Tramadol, Ur >[id number] [facility] Comment: Report Name ? Results Units Reference Range SiteDRUG MONITOR, TRAMADOL, QN, URINE ?[id number]: ? >43965 (H)ng/mL ? <100Tramadol: ?>77093 (H)ng/mL ? <100Tramadol Comments: ? See Tramadol Notes, LDT NotesDRUG MONITORING TEMPLATE ? [id number] and Comments:This drug testing is for medical treatment only.Analysis was performed as non-forensic testing andthese results should be used only by healthcareproviders to render diagnosis or treatment, or tomonitor progress of medical conditions.Tramadol Notes:Tramadol, Desmethyltramadol detected is consistent withthe use of the drug Tramadol.LDT Notes:Confirmation tests were developed and their analyticalperformance characteristics have been determined by[facility]. It has not been cleared or approvedby the FDA. This assay has been validated pursuant tothe CLIA regulations and is used for clinical purposes.Healthcare Providers needing Interpretation assistance,please contact us at [phone] ( )M- F, 8am to 10pm ESTSite InformationNL1:[facility] [id number] [place] [id number] Laboratory Director: Shekhar Pierre M.D. Desmethyltramadol, Ur >[id number] [facility] 10/22/2022 10:1 2 AM EDT 10/22/2022 10:38 AM EDT us [facility] External Provider LAB URI NE ORDERABLES Final Result [facility] [address] [place] [phone] * (ABNORMAL) Drug Monitoring, Panel 1, Screen, Urine (10/22/2022 10:12 AM EDT) Opiate Screen Urine Not Detected Not Detect [facility] Comment:Opiate cut-off is 30 0 ng/mL.Positive results are unconfirmed and should not be used fornon-medical purposes. Barbiturates, Urine Not Detected Not Detect [facility] Comment:Barbiturate cut-off is 200 ng/mL.Positive results are unconfirmed and should not be used fornon-medical purposes. Phencyclidine Screen Urine Not Detected Not Detect [facility] Comment:Phencyclidine cut-of f is 25 ng/mL.Positive results are unconfirmed and should not be used fornon-medical purposes. Amphetamine Screen Urine Not Detected Not Detect [facility] Comment:Amphetamine cut-off is 1000 ng/mL.Positive results are unconfirmed and should not be used fornon-medical purposes. Benzodiazepines Screen Urine POSITIVE(A) Not Detect [facility] Comment:Benzodiazepine cut-o ff is 200 ng/mL.Positive results are unconfirmed and should not be used fornon-medical purposes. Cocaine Screen Urine Not Detected Not Detect [facility] Comment:Cocaine cut-off is 3 00 ng/mL.Positive results are unconfirmed and should not be used fornon-medical purposes. Cannabinoid Screen Urine POSITIVE(A) Not Detect [facility] Comment:Cannabinoid cut-off is 50 ng/mL.Positive results are unconfirmed and should not be used fornon-medical purposes. FENTANYL URINE POSITIVE(A) Not Detect [facility] Comment:Fentanyl cut-off is 1 ng/mL.Positive results are unconfirmed and should not be used fornon-medical purposes. 10/22/2022 10:1 2 AM EDT 10/22/2022 10:34 AM EDT [facility] External Provider LAB URI NE ORDERABLES Final Result [facility] [address] [place] [phone] * (ABNORMAL) Comprehensive Metabolic Panel (09/27/2022 2:11 PM EST) Sodium 141 135 - 145 mmol/L [facility] Potassium 4.3 3.3 - 5.1 mmol/L [facility] Chloride 104 96 - 108 mmol/L [facility] Carbon Dioxide 30(H) 22 - 29 mmol/L [facility] Anion Gap 11(L) 12 - 20 [facility] Urea Nitrogen (BUN) 13 9 - 16 mg/dL [facility] Creatinine, Serum 0.73 0.5 - 1.4 mg/dL [facility] Creatinine Clr Calc Pharmacy 73.6 [facility] Comment:Provided height and weight: 157.48 cm,70.76 kg.eGFR (calculated from the MDRD study equation) and eCrCl(calculated from the Cockcroft-Gault equation) are based ondifferent parameters and may not yield comparable results.If eCrCl result is absurd, please check patient'sheight/weight. Estimated Glomerular Filt Rate >60 [facility] Comment:NOTE: For -Am erican individuals, multiply the result by 1.210.Chronic Kidney Disease: Estimated GFR < 60 mL/min/1.80z2Cbroex Kidney Disease: Estimated GFR < 15 mL/min/1.73m2 Glucose 90 60 - 115 mg/dL [facility] Calcium 8.8 8.4 - 10.2 mg/dL [facility] Bilirubin, Total 0.4 0.0 - 1.0 mg/dL [facility] Aspartate Amino Transferase 25 5 - 31 U/L [facility] Alanine Aminotransferase 20 0 - 31 U/L [facility] Total Protein 6.7 6.5 - 8.0 g/dL [facility] Albumin Level 4.1 3.5 - 5.0 g/dL [facility] Alkaline Phosphatase 71 39 - 117 U/L [facility] 09/27/2022 2:11 PM EST 09/27/2022 2:14 PM EST us [facility] External Provider LAB BLO OD ORDERABLES Final Result [facility] [address] [place] [address] [phone] * (ABNORMAL) CBC auto differential (09/27/2022 2:11 PM EST) White Blood Count 7.5 4.8 - 10.8 X10*3/uL [facility] Red Blood Count 4.42 4.20 - 5.50 X10*6/uL [facility] Hemoglobin 12.4 12.0 - 16.0 g/dl [facility] Hematocrit 36.9(L) 37.0 - 47.0 % [facility] Mean Corpuscular Volume 83.5 80.0 - 98.0 fL [facility] Mean Corpuscular Hemoglobin 28.1 27.0 - 33.0 pg [facility] Mean Corpuscular HGB Conc 33.6 31.0 - 35.0 g/dl [facility] Red Cell Distribution Width 12.5 11.0 - 16.0 % [facility] Platelet Count 139(L) 160 - 400 X10*3/uL [facility] Mean Platelet Volume 12.0 9.4 - 12.3 fL [facility] Neutrophils Percent Auto 54.6 45 - 73 % [facility] Imm Gran Pct Auto 0.4 0.0 - 0.4 % [facility] Lymphocytes Percent Auto 28.7 20 - 40 % [facility] Monocytes Percent Auto 8.3 2 - 11 % [facility] Eosinophils Percent Auto 7.3(H) 0 - 4 % [facility] Basophils Percent Auto 0.7 0 - 2 % [facility] NRBC Pct Auto 0.0 0.0 - 0.2 /100WBC [facility] Neutrophils Absolute Auto 4.1 2.0 - 8.3 x10*3/uL [facility] Imm Gran Abs Auto 0.03 0.00 - 0.03 X10*3/uL [facility] Lymphocytes Absolute Auto 2.2 1.2 - 4.9 X10*3/uL [facility] Monocytes Absolute Auto 0.6 0.1 - 1.2 X10*3/uL [facility] Eosinophils Absolute Auto 0.6(H) 0.0 - 0.4 X10*3/uL [facility] Basophils Absolute Auto 0.1 0.0 - 0.2 X10*3/uL [facility] NRBC Abs Auto 0.000 0.0 - 0.012 X10*3/uL [facility] 09/27/2022 2:11 PM EST 09/27/2022 2:14 PM EST us [facility] External Provider LAB BLO OD ORDERABLES Final Result [facility] [address] [place] [phone] documented in this encounter Visit Diagnoses Not on filedocumented in this encounter Care Teams Meat Molder Relationship Specialty Start Date End Date Gordon Velez MD [address] [place] [phone] PCP - General Internal Medicine 11/30/19 documented as of this encounter
--- OUTSIDE RECORDS SUMMARY | 2024-12-10 11:25 | XMS_ITS | Clinical Summary ---
Author Organization [facility] Address [address] [place] [address] Care Team Providers Care Solar Installation Foreman Name Role Phone Verna Michael Mcclain Primary Care Provider + [phone] Allergies No known active allergies Medications traMADoL [...] Smear 1959 Pap Smear 1960 Sigmoidoscopy 1960 Pneumococcal Vaccine: 50+ Years (1 of 2 - PCV) 10/11/1978 CT Lung Cancer Screening (Baseline) 10/11/2009 Osteoporosis Screening 10/11/2009 Zoster Vaccines (1 of 2) 10/11/2009 [...] patient's age to complete this topic Insurance [employer] NATHAN [id number] Care Teams Solar Installation Foreman Relationship Specialty Start Date End Date Michael Gillespie [address] [place] [address] PCP - General Internal Medicine 11/24/20
--- OUTSIDE RECORDS SUMMARY | 2024-12-10 11:25 | XMS_ITS | Encounter Summary ---
Author Organization [employer] Address [address] [facility] [address] [place] [address] Care Team Providers Care Blade Worker Name Role Phone Gordon Velez MD Primary Care Prov ider Reason for Visit * Reason Onset Date Comments Appointment Request 02/15/2023 Encounter Details Date Type Department Care Team ([facility] st Contact Info) Description 02/15/2023 Telephone [facility] MED & PEDS [address] [place] [address] Gordon Velez MD [address] [place] [address] Appointment Request Social History Tobacco Use Types [...] requesting to r/s appt from 02/15/23. Details: [facility] [place]- r/s Patient speaks tanzanian. documented in this encounter Plan of Treatment Not on file documented as of this encounter Visit Diagnoses Not on filedocumented in this encounter Care Teams Blade Worker Relationship Specialty Start Date End Date Gordon Velez MD [address] [place] [phone] PCP - General Internal Medicine 11/30/19 documented as of this encounter
--- OUTSIDE RECORDS SUMMARY | 2024-12-10 11:25 | XMS_ITS | Encounter Summary ---
Author Organization [employer] Address 75 [facility] [address]t [place] [address] Care Team Providers Care Grain Trimmer Name Role Phone Gordon Vleez MD Primary Care Prov ider Encounter Details Date Type Department Care Team ([facility] st Contact Info) Description 05/13/2024 Orders Only [facility] CHC MED & PEDS [address] [place], [place] [phone] Gordon Velez MD [address] [place] [address] Social History Tobacco Use Types Packs/Day Years [...] (Free Thyroxine) 0.98 0.71 - 1.85 ng/dL [facility] 05/13/2024 2:24 PM EDT 05/13/2024 5:31 PM EDT us Generic External Data Provider LAB BLOOD ORDERAB LES Final Result [facility] [address] [place] [phone] * (ABNORMAL) TSH (05/13/2024 2:24 PM EDT) Thyroid Stimulating Hormone 0.20(L) 0.32 - 4.0 uIU/mL [facility] Comment:TSH 3rd Generation ( [facility]) 05/13/2024 2:24 PM EDT 05/13/2024 5:31 PM EDT us Generic External Data Provider LAB BLOOD ORDERAB LES Final Result [facility] [address] [place] [phone] documented in this encounter Visit Diagnoses Not on filedocumented in this encounter Additional Health Concerns Assessment Noted Time PHQ-9 Depression Total Score: 18 024 1:56 PM EDT documented as of this encounter Care Teams Grain Trimmer Relationship Specialty Start Date End Date Gordon Velez MD [address] [place] [phone] PCP - General Internal Medicine 11/30/19 documented as of this encounter
--- OUTSIDE RECORDS SUMMARY | 2024-12-10 11:25 | XMS_ITS | Encounter Summary ---
Author Organization [employer] Address 75 [facility] 7t [place] [address] Care Team Providers Care Coil Finisher Name Role Phone Gordon Velez MD Primary Care Prov ider Reason for Visit * Reason Onset Date Comments Appointment Request 07/10/2023 Encounter Details Date Type Department Care Team ([facility] st Contact Info) Description 07/10/2023 Telephone [facility] MEDICINE [address] [place] [address] Gordon Velez MD [address] [place], [place] [phone] Appointment Request Social History Tobacco Use Types [...] on filedocumented in this encounter Care Teams Coil Finisher Relationship Specialty Start Date End Date Gordon Velez MD [address] [place] [phone] PCP - General Internal Medicine 11/30/19 documented as of this encounter
--- OUTSIDE RECORDS SUMMARY | 2024-12-10 11:25 | XMS_ITS | Encounter Summary ---
Author Organization [employer] Address [address] [facility] [address] [place] [address] Care Team Providers Care Study Manager Name Role Phone Gordon Velez MD Primary Care Prov ider Encounter Details Date Type Department Care Team (Late st Contact Info) Description 02/11/2023 Orders Only [facility] MEDICINE [address] [place] [address] Shannan Greene LPN Social History Tobacco Use [...] on filedocumented in this encounter Care Teams Study Manager Relationship Specialty Start Date End Date Gordon Velez MD [address] [place] [address] PCP - General Internal Medicine 11/30/19 documented as of this encounter
--- OUTSIDE RECORDS SUMMARY | 2024-12-10 11:25 | XMS_ITS | Encounter Summary ---
Author Organization [employer] Address [address] [facility] [address] [place] [address] Care Team Providers Care House Moving Supervisor Name Role Phone Gordon Velez MD Primary Care Prov ider Reason for Visit * Reason Comments Med Refill Encounter Details Date Type Department Care Team ([facility] st Contact Info) Description 12/05/2024 Refill [facility] CHC MED & PEDS [address] [place], [place] [phone] Gordon Velez MD [address] [place] [address] Type 2 diabetes mellitus without complications (CMS/HCC) [...] documented as of this encounter Care Teams House Moving Supervisor Relationship Specialty Start Date End Date Gordon Velez MD [address] [place] [phone] PCP - General Internal Medicine 11/30/19 documented as of this encounter
--- OUTSIDE RECORDS SUMMARY | 2024-12-10 11:25 | XMS_ITS | Clinical Summary ---
Author Organization [employer] Address [address] [facility] 7t [place] [address] Care Team Providers Care Divorce Mediator Name Role Phone Gordon Velez MD Primary [...] mouth in the morning. 07/18/20 22 Active polyethylene glycol, PEG, 3350 [...] 02/24/20 24 Active Blood Glucose Monitoring Suppl (Stemline Therapeuticse) w/Device kit 1 kit 4 times daily. 1 kit 06/23/20 24 2024 Active Nebulizers [facility] Use nebulizer as instructed 1 each 07/07/20 24 Active albuterol (2.5 MG/3ML) 0.083% nebulizer solution INHALE ONE AMPULE USING A NEBULIZER EVERY 4 HOURS NEEDED FOR WHEEZING 90 mL 2 08/07/19 25 Active docusate sodium (Colace) 100 MG capsuleIndicatio ns:Chronic idiopathic constipation TAKE ONE CAPSULE TWICE DAILY 180 capsule 3 08/20/19 25 Active buPROPion XL (Wellbutrin XL) 150 MG 24 hr tablet TAKE 1 TABLET EVERY MORNING WITH 300mg TABLET 08/14/19 25 Active hydrOXYzine HCl (Atarax) 25 MG tablet TAKE ONE TABLET EVERY NIGHT NEEDED FOR SLEEP 04/29/20 24 Active levothyroxine (Synthroid, Levoxyl) 137 MCG tablet Take 1 tablet by mouth Once per day. 06/05/20 24 Active terbinafine (LamISIL) 250 MG tablet Take [...] DAY RINSE MOUTH AFTER USE 60 each 09/01/19 25 Active Nutritional Supplements (Boost High Protein) liquid DRINK ONE BOTTLE TWICE DAILY 1 mL 09/10/19 25 Active Camphor-Menthol- Methyl Collin (Medicated Pain Relieving) 1.2-5.7-6.3 % patch Place 1 patch on the skin if needed each day (Pain). 30 patch 09/18/19 Active lidocaine (Lidoderm) 5 % patch Apply 1 patch topically Once per day. Remove & discard patch within 12 hours or as directed by MD. 30 patch 3 09/24/19 25 Active TRUEplus Lancets 33G miscIndications: Type 2 diabetes mellitus without complication, without long-term current use of insulin ([facility]) 1 each by Other route Once per day. 90 each 10/08/19 25 2025 Active lactulose (Chronulac) 10 GM/15ML solution TAKE 15 ML BY MOUTH ONCE DAILY FOR 15 DAYS 150 mL 10/17/19 25 Active mineral oil liquid Take 30 mL by mouth if needed each day for constipation. 180 mL 12 10/17/19 25 2025 Active albuterol (Ventolin HFA) 108 (90 Base) MCG/ACT inhalerIndicatio ns:Severe persistent asthma without complication INHALE TWO PUFFS EVERY 6 HOURS NEEDED FOR WHEEZING 18 g 1 11/17/19 25 Active fluticasone (Flonase) 50 MCG/ACT nasal sprayIndications :Seasonal allergies INHALE ONE SPRAY IN EACH NOSTRIL TWICE DAILY 48 g 11/17/19 25 Active FREESTYLE LITE test strip 1 each by Other route Once per day. 90 each 11/17/19 25 2025 Active SITagliptin (Januvia) 100 MG tabletIndication s:Type 2 diabetes mellitus without complications (CMS/HCC) TAKE ONE TABLET BY MOUTH EVERY DAY 30 tablet 3 12/09/19 25 Active mirtazapine (Remeron) 7.5 MG tablet Take 7.5 mg by mouth at bedtime. 07/18/20 22 2024 Discontinued(T herapy completed) SITagliptin (Januvia) 100 MG tabletIndication s:Type 2 diabetes mellitus without complications (CMS/HCC) TAKE ONE TABLET BY MOUTH EVERY DAY 30 tablet 3 08/21/19 25 2024 Discontinued(R eorder (will not trigger notification to Pharmacy)) LORazepam (Ativan) 0.5 MG tablet TAKE 1 TABLET ONCE DAILY NEEDED AND MAY TAKE ONE TABLET EVERY THREE DAYS 07/31/19 25 2024 Discontinued(T herapy completed) fluticasone (Flonase) 50 MCG/ACT nasal sprayIndications :Seasonal allergies INHALE ONE SPRAY IN EACH NOSTRIL TWICE DAILY 48 g 09/29/19 25 2024 Discontinued(R eorder (will not trigger notification to Pharmacy)) oxyCODONE-acetam inophen (Percocet) 5-325 MG tabletIndication s:Chronic right shoulder pain TAKE ONE TABLET EVERY NIGHT AT BEDTIME NEEDED FOR SEVERE PAIN 15 tablet 10/02/19 25 2024 Discontinued(T herapy completed) FREESTYLE LITE test strip 1 each by Other route Once per day. 90 each 3 10/08/19 25 2024 Discontinued(R eorder (will not trigger notification to Pharmacy)) albuterol (Ventolin HFA) 108 (90 Base) MCG/ACT inhalerIndicatio ns:Severe persistent asthma without complication INHALE TWO PUFFS EVERY 6 HOURS NEEDED FOR WHEEZING 18 g 1 10/20/19 25 2024 Discontinued(R eorder (will not trigger notification to Pharmacy)) Active Problems Patient Care Coordination No te Formatting of this note migh t be different from the original. [id number] Piyush Cheney, TC-LVM Problem Noted Date Diagnosed [...] without sciatica 0 03/05/2023 Assessment & Plan (11/17/2024 10:48 AM EDT): Followed by ortho, no neurologic deficit, continue home remedies Assessment & Plan (08/14/2024 1:30 PM EST): [...] uptake on the left side, [place] [facility] and she is on evaluation for surgery [...] AM EDT): Patient was receiving tramadol from nozzle operator, but recent screening test was positive for [...] 06/10/2018 Acquired hypothyroidism 03/05/2018 Assessment & Plan (11/17/2024 10:47 AM EDT): Followed by endocrinology, clincially euthyroid Assessment & Plan (10/25/2022 10:06 AM EDT): Followed by endocrinology, she will receive radioactive ablation therapy next week, Benzodiazepine dependence, continuous 03/05/2018 Chronic back pain 03/05/2018 History of right mastectomy 03/05/2018 History of thyroidectomy 03/05/2018 Mood disorder 03/05/2018 Opioid abuse 03/05/2018 Seasonal allergies 03/05/2018 Type 2 diabetes mellitus without complication Assessment & Plan (11/17/2024 10:47 AM EDT): Controlled, no episode of hypoglycemia, no changes will be made Assessment & Plan (08/14/2024 1:30 PM EST): [...] Encounters Date Type Department Care Team Description 12/08/2024 Refill [facility] [address] [place] [address] Gordon Velez MD Type 2 diabetes mellitus without complications ([facility]/HCC) 12/08/2024 Telephone [facility] [address] [place] [address] Gordon Velez MD Med Refill 12/07/2024 Refill [facility] [address] [place] [address] Gordon Velez MD Type 2 diabetes mellitus without complications ([facility]) 12/05/2024 Refill [facility] [address] [place] [address] Gordon Velez MD Type 2 diabetes mellitus without complications ([facility]) 11/16/2024 11:15 AM EDT Telemedicine [facility] [address] [place] [address] Gordon Velez MD Type 2 diabetes mellitus without complication, without long-term current use of insulin ([facility]) (Primary Dx); Acquired hypothyroidism; Chronic midline low back pain without sciatica 11/16/2024 Travel 11/15/2024 Refill [facility] [address] [place] [address] Gordon Velez MD Severe persistent asthma without complication 11/13/2024 Refill [facility] [address] [place] [address] Gordon Velez MD Severe persistent asthma without complication; Seasonal allergies 11/04/2024 Telephone [facility] [address] [place] [address] Gordon Velez MD Med Refill 10/28/2024 Refill [facility] [address] [place] [address] Erica Anaya MD Chronic right shoulder pain 10/23/2024 Telephone [facility] [address] [place] [address] Gordon Velez MD Prior Authorization (Lidocaine patches ) 10/23/2024 Telephone [facility] [address] [place] [address] Gordon Velez MD Nurse Triage 10/18/2024 Refill [facility] [address] [place] [address] Gordon Velez MD Severe persistent asthma without complication 10/16/2024 10:30 AM EDT Telemedicine [facility] [address] [place] [address] Gordon Velez MD Chronic idiopathic constipation (Primary Dx); Screen for colon cancer 10/16/2024 Travel 10/14/2024 Telephone [facility] [address] [place] [address] Gordon Velez MD chart prep 10/13/2024 Telephone [facility] [address] [place] [address] Gordon Velez MD 10/07/2024 Orders Only [facility] [address] [place] [address] Gordon Velez MD Type 2 diabetes mellitus without complication, without long-term current use of insulin ([facility]) 10/02/2024 Telephone [facility] [address] [place] [address] Gordon Velez MD Medication Question 10/02/2024 Population Health Risk Score [facility] () Department [address] [place] [phone] Provider, Population Health Generic 10/01/2024 Telephone [facility] [address] [place] [address] Gordon Velez MD Prior Authorization 09/30/2024 Refill [facility] [address] [place] [address] Erica Anaya MD Chronic right shoulder pain 09/26/2024 Refill [facility] [address] [place] [address] Gordon Velez MD Seasonal allergies 09/23/2024 11:30 AM EST Office Visit [facility] [address] [place] [address] Erica Anaya MD Encounter for immunization (Primary Dx); Chronic right shoulder pain 09/23/2024 Refill [facility] [address] [place] [address] Paige Harris RN 09/23/2024 Telephone [facility] [address] [place] [address] Gordon Velez MD 09/23/2024 Travel 09/22/2024 Telephone [facility] [address] [place], [place] [phone] Gordon Velez MD Nurse Triage 09/18/2024 Telephone [facility] [address] [place] [address] Gordon Velez MD Medication Question 09/18/2024 Refill [facility] [address] [place] [address] Gordon Velez MD 09/17/2024 Outside Procedure [facility] [address] [place] [address] Ashlie Velasquez, OD Presbyopia (Primary Dx) 09/17/2024 Telephone [facility] [address] [place] [address] Gordon Velez MD Med Request 09/14/2024 9:15 AM EST Office Visit [facility] [address] [place] [address] Ashlie Velasquez, OD Hyperopia of both eyes (Primary Dx) from Last 3 Months Immunizations Immunization Administration Dates Next Due Hep B, adult [...] 09/23/2024 11:39 AM EST Plan of Treatment Health Maintenance Due Date [...] 2024 06/23/2021, 10/19/2020, 09/21/2020 Diabetes: Hemoglobin A1C 02/04/202508/07/2 025, 05/13/2024, 03/30/2024, Additional history exists SDOH Screening 03/30/2025 03/30/2024 Pap Smear 04/10/2025 04/10/2022 Lipid Panel 05/13/2025 05/13/2024 Tobacco Screening 08/24/2025 08/24/2024 Mammogram 09/18/2025 09/19/2023, 0812/2021, 04/12/2021, Additional history exists Depression Screening 10/16/2025 10/16/2024, 03/28/20 25 Cervical Cancer Screening 04/10/2027 HPV/Cotest 04/10/2027 04/10/2022, [...] Name Priority Date/Time Associated Diagnosis Comments POCT GLYCATED HEMOGLOBIN, TOTAL Routine 08/07/2024 10:34 [...] - 6.0 % QC Media Lot # Comment:[id number] Lot# Expiration Date Comment:02/19/2026 Blood 08/07/2024 10:3 4 AM EST Gordon Rose MD POINT OF CARE TEST ENTER/EDIT ORDERABLES Final Result * Hepatitis C Antibody with Reflex to HCV, RNA, Quantitative, Real-Time PCR (05/13/2024 2:24 PM EDT) Pathologist [facility] Hepatitis C Antibody Nonreactive Nonreactive [facility] Comment:Antibodies to HCV no t detected; does not exclude early acuteHCV infection. Blood Venous blood specimen / Unknown 05/13/2024 2:24 PM EDT 05/13/2024 5:31 PM EDT Gordon Rose MD LAB BLOOD ORDERABL ES Final Result [facility] [address] [place] [address] [phone] * (ABNORMAL) Lipid Panel, Standard (05/13/2024 2:24 PM EDT) Triglycerides 138 <150 mg/dL [facility] Comment:Desirable Triglyceri de: less than 150 mg/dLBorderline High Triglyceride 150-199 mg/dLHigh Triglyceride: 200-499 mg/dLVery High Triglyceride: greater than or equal to 5OO mg/dL Cholesterol 131 <200 mg/dL [facility] Comment:Desirable Cholestero l: less than 200 mg/dLBorderline High Cholesterol: 200-239 mg/dLHigh Cholesterol: greater than 239 mg/dL LDL Cholesterol Calculated 65 <100 mg/dL [facility] Comment:Desirable LDL: less than 100 mg/dLNear Optimal/Above Optimal LDL: 110- 129 mg/dLBorderline High LDL: 130-159 mg/dLHigh LDL: 160-189 mg/dLVery High LDL: greater than or equal to 190 mg/dL HDL Cholesterol 39(L) >40 mg/dL [facility] Comment:Desirable HDL: great er than 40 mg/dL Note: This HDL assay may give artificially low results in patients with liver disease. Blood Venous blood specimen / Unknown 05/13/2024 2:24 PM EDT 05/13/2024 5:31 PM EDT Gordon Rose MD LAB BLOOD ORDERABL ES Final Result Performing Organization Address City/State/[facility] Co de Phone Number [facility] [address] [place] [address] [phone] * BI Mammogram Screening Tomosynthesis Left (09/19/2023 12:35 PM EST) Anatomical Region Laterality Modality Breast Left Mammography 09/19/2023 12:3 5 PM EST Narrative 09/23/2023 10:08 AM EST ? [facility] [place] ? [address] [facility] ?[place] [address] ? Mammography Report ? Signed ? Patient: Juan Ferguson,Jodi ?MR#: ?? [id number] ? : 1960 ?Acct:[id number] ? Age/Sex: 62 / F ?ADM Date: 02/29/24 ? Loc: HO.MAMMO ? Attending Dr: Sal Tabor CNM ? Ordering Physician: SAL TABOR CNM ?Results: 1 ?? Negative ? Date of Service: 09/19/23 ?Follow Up: 1 Year From Orig ?? inal Mammogram ? Procedure(s): MM tomosynthesis screening LT ?? Accession Number(s): [id number] ? cc: SAL TABOR CNM ? EXAMINATION: [...] by Darling Stewart MD in OV> ? 09/23/23 1004 ? DD/ ? TD/TT: ? Lance Crewmember: ? Procedure Note Donotuseinterpreter, Image - 09/23/2023 [facility] [address] [place] [address] [place] [address] Mammography Report Signed Patient: Jodi SaenzMR#: [id number] : 1960Acct:[id number] Age/Sex: 62 / FADM Date: 09/19/23 Loc: HO.MAMMO Attending Dr: Sal Tabor CNM Ordering Physician: SAL TABOResults: 1 Negative Date of Service: 09/19/23Follow Up: 1 Year From Orig inal Mammogram Procedure(s): MM tomosynthesis screening LT Accession Number(s): [id number] cc: SAL TABOR CNM EXAMINATION: MM SCREENING [...] in OV> 09/23/23 1004 DD/ 1235 TD/TT: Lance Crewmember: Sal Tabor CNM IMG BI PROCEDURES Final R esult * [...] has been evaluated with computer assisted technology. [facility] Deputy General Counsel: SEE COMMENT [facility] Comment: SL, CT(ASCP) CT screening location: [address] ??[address] HPV nRNA E6/E7 Not Detected Not Detected [facility] Comment: Methodology: Floor Inspector-Mediated Amplification This assay detects E6/E7 viral messenger RNA (mRNA) from 14 high-risk HPV types (16,18,31,33,35,39,45,51,52,56,58,59,66,68). ? Cervical sources are required for HPV testing. If a vaginal source from a patient who has had a total hysterectomy with removal of cervix was ?? submitted, please contact the testing laboratory for alternative testing options. ?? For additional information, please refer to http://education.Aliveshoes/faq/SBX240q6 (This link if provided for information/ educational purposes only.) Interpretation/Res ult: SEE COMMENT [facility] Comment: Negative for intraepithelial lesion or malignancy. Atrophic pattern; predominantly parabasal cells LMP: NONE GIVEN [facility] Prev. BX: NONE GIVEN [facility] Prev. PAP: 03/2019 NIL/NEG HYST 2 CHERELLE 2011 [facility] Review Deputy General Counsel: SEE COMMENT [facility] Comment: CONRAD, CT(ASCP) CT screening location: [address] ??[address] SOURCE: None given [facility] Statement Of Adequacy: SATISFACTORY FOR EVALUATION [facility] 04/10/2022 11:2 2 AM EDT Sal Tabor CNM LAB PATHOLOGY ORDERABLES Final Result Performing Organization Address City/[facility]/ZIP Co de Phone Number [facility] [address] * MICROALBUMIN, RANDOM (05/31/2020 12:00 AM EST) Creatinine Urine 33.22 mg/dL [facility] Microalbum/Creati nine Ratio Ur TNP ug/mg cr [facility] Comment: Unable to calculate albumin/creatinine ratio due to low microalbumin or creatinine result. Microalbumin Urine <5.0 mg/L [facility] 05/31/2020 Historical Provider HISTORICAL/NON ORDERABLE LABS Final Result Performing Organization Address [facility] Co de Phone Number [facility] [address] * Hm Colonoscopy (11/24/2015 12:21 PM EDT) Historical Provider HEALTH MAINTENANCE Final Result from Last 3 Months or Most Recently Relevant to Health Maintenance Insurance [facility] [employer] [place] [phone] Care Teams Divorce Mediator Relationship Specialty Start Date End Date Gordon Velez MD [address] [place] [phone] PCP - General Internal Medicine 11/30/19
--- OUTSIDE RECORDS SUMMARY | 2024-12-10 11:26 | XMS_ITS | Encounter Summary ---
Author Organization [employer] Address [address] [facility] 7t [place] [address] Care Team Providers Care Industrial Court Magistrate Name Role Phone Gordon Velez MD Primary Care Prov ider Encounter Details Date Type Department Care Team ([facility] st Contact Info) Description 08/21/2023 Orders Only [facility] [address] [place] [address] Gordon Velez MD [address] [place] [address] Social History Tobacco Use Types Packs/Day Years [...] on filedocumented in this encounter Care Teams Industrial Court Magistrate Relationship Specialty Start Date End Date Gordon Velez MD [address] [place] [phone] PCP - General Internal Medicine 11/30/19 documented as of this encounter
--- OUTSIDE RECORDS SUMMARY | 2024-12-10 11:26 | XMS_ITS | Encounter Summary ---
Author Organization [employer] Address [address] [facility] 7 [place] [address] Care Team Providers Care Photographic Printer Name Role Phone Gordon Velez MD Primary Care Prov ider Reason for Visit * Reason Onset Date Comments Referral 09/24/2023 Encounter Details Date Type Department Care Team ([facility] st Contact Info) Description 09/24/2023 Telephone [facility] [address] [place] [address] Gordon Velez MD [address] [place], [place] [phone] Referral Social History Tobacco Use Types Packs/Day [...] the past 12 months, has t he [employer], [employer], oil or water [employer] threatened to shut off services in your [...] was referred last month [place] [facility] Pt will be contacted when appts become available from their office. * Telephone Encounter - Macario Segura - 09/24/2023 12:52 PM EST TC from pt requesting new referral : DATE: N/A TIME:N/A Address: [address] [place] [address] Dr [address] Floor, [place] [address] Visits: N/A Facility Name: [facility] Type of Specialist: Gastroenterologists Phone # : [phone] Pt is requesting referral for a colonoscopy stated no concerns. If any questions you can contact pt at [phone] documented in this encounter Plan of Treatment Not on file documented as of this encounter Visit Diagnoses Not on filedocumented in this encounter Care Teams Photographic Printer Relationship Specialty Start Date End Date Gordon Velez MD [address] [place] [phone] PCP - General Internal Medicine 11/30/19 documented as of this encounter
--- OUTSIDE RECORDS SUMMARY | 2024-12-10 11:26 | XMS_ITS | Encounter Summary ---
Author Organization [employer] Address [address] [facility] [address] [place] [address] Care Team Providers Care Mechanical Integrity Engineer Name Role Phone Gordon Velez MD Primary Care Prov ider Reason for Visit * Reason Onset Date Comments Appointment Request 09/16/2023 Encounter Details Date Type Department Care Team ([facility] st Contact Info) Description 09/16/2023 Telephone [facility] [address] [place] [address] Gordon Velez MD [address] [place], [place] [phone] Appointment Request Social History Tobacco Use Types [...] t he electric, gas, oil or water [employer] threatened to shut off services in your [...] mammogram. Please contact pt if any questions: [phone] documented in this encounter Plan of Treatment Not on file documented as of this encounter Visit Diagnoses Not on filedocumented in this encounter Care Teams Mechanical Integrity Engineer Relationship Specialty Start Date End Date Gordon Velez MD [address] [place] [phone] PCP - General Internal Medicine 11/30/19 documented as of this encounter
--- OUTSIDE RECORDS SUMMARY | 2024-12-10 11:26 | XMS_ITS | Encounter Summary ---
Author Organization [employer] Address [address] [facility] [address] [place] [address] Care Team Providers Care Machine Folder Name Role Phone Gordon Velez MD Primary Care Prov ider Reason for Visit * Reason Comments Med Refill Encounter Details Date Type Department Care Team (Late st Contact Info) Description 01/31/2024 Refill [facility] [address] [place] [address] Gordon Velez MD [address] [facility] [address] [place], [place] [phone] Severe persistent asthma without complication Social History [...] t he electric, gas, oil or water [employer] threatened to shut off services in your [...] complication documented in this encounter Care Teams Machine Folder Relationship Specialty Start Date End Date Gordon Velez MD [address] [place] [phone] PCP - General Internal Medicine 11/30/19 documented as of this encounter
--- OUTSIDE RECORDS SUMMARY | 2024-12-10 11:26 | XMS_ITS | Encounter Summary ---
Author Organization [employer] Address [address] [facility] 7 [place] [address] Care Team Providers Care Asbestos Textile Supervisor Name Role Phone Gordon Velez MD Primary Care Prov ider Reason for Visit * Reason Onset Date Comments Referral 09/10/2023 Encounter Details Date Type Department Care Team ([facility] Contact Info) Description 09/10/2023 Telephone [facility]S [address] [place] [address] Gordon Velez MD [address] [place] [address] Referral Social History Tobacco Use Types Packs/Day [...] Pt states Mammo can be sent to [facility] women[facility]. Ordersent as requested. Pt then stated needing a referral to [facility] eye care for routine DM eye exam [...] requesting for eye referral flavia sent to [facility]. States she is not able to make an appointment due to office not having a referral. documented in this encounter Plan of Treatment Not on file documented as of this encounter Visit Diagnoses Diagnosis Type 2 diabetes mellitus without complication, without long-term current use of insulin (CMS/[facility]) documented in this encounter Care Teams Asbestos Textile Supervisor Relationship Specialty Start Date End Date Gordon Velez MD [address] [place] [phone] PCP - General Internal Medicine 11/30/19 documented as of this encounter
--- OUTSIDE RECORDS SUMMARY | 2024-12-10 11:26 | XMS_ITS | Encounter Summary ---
Author Organization [employer] Address 75 [facility] 7t [place] [address] Care Team Providers Care Tire Spotter Name Role Phone Gordon Velez MD Primary Care Prov ider Encounter Details Date Type Department Care Team (Late st Contact Info) Description 11/08/2023 Orders Only [facility] MEDICINE [address] [place] [address] ProviderMarito MD Social History Tobacco Use Types Packs/Day Years [...] * Hm Colonoscopy (11/24/2015 12:21 PM EDT) us Historical Provider HEALTH MAINTENANCE Final Result documented in this encounter Visit Diagnoses Not on filedocumented in this encounter Care Teams Tire Spotter Relationship Specialty Start Date End Date FamGordon Salas MD [address] [place] [phone] PCP - General Internal Medicine 11/30/19 documented as of this encounter
--- OUTSIDE RECORDS SUMMARY | 2024-12-10 11:26 | XMS_ITS | Referral Summary ---
Author Organization [facility] Address [address] [place] [address] Care Team Providers Care Automobile Accessories Installer Name Role Phone Verna Michael Mcclain Primary Care Provider + [phone] Allergies No known active allergies Medications traMADoL [...] Plan of Treatment Not on file Insurance [facility] [place] [id number] Care Teams Automobile Accessories Installer Relationship Specialty Start Date End Date Michael Gillespie [address] [place] [address] PCP - General Internal Medicine 11/24/20
== END 2024-12-10 11:18 | disposition home or self-care (01) ==
LOC: HO.ENCR 10:43
PROVIDERS: PCP Internal Medicine; Visit Provider Student in an Organized Health Care Education/Training Program
DX: Z85.850 Personal history of malignant neoplasm of thyroid (principal); E89.0 Postprocedural hypothyroidism
CPT/HCPCS: 99214

== ENCOUNTER 2025-02-12 10:22 | Outpatient (REF) | payer MEDICARE, MEDICAID, SELFPAY ==
--- NOTE | ~2025-02-12 | XR_ITS ---
EXAMINATION: XR LUMBAR SPINE 2-3 VIEWS HISTORY: M54.9 - Dorsalgia, unspecified COMPARISON: Comparison is made with the prior examination dated 09/25/2021. FINDINGS: AP, lateral, and coned down views of the lumbar spine are submitted. Osseous mineralization is normal. Five nonrib-bearing lumbar vertebral bodies are identified, maintaining normal height and alignment without evidence of fracture or spondylolisthesis. There is mild degenerative disc disease with disc space narrowing and osteophyte formation. 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 There is calcification of the abdominal aorta. XR/XR lumbar spine 2-3V IMPRESSION: Degenerative disc disease of the lumbar spine as described. Electronically signed by: Jose Luis Staley MD 02/12/2025 11:28 AM EDT
== END 2025-02-12 10:23 | disposition home or self-care (01) ==
LOC: HO.HOSX 10:22
PROVIDERS: PCP Internal Medicine; Visit Provider Physical Medicine & Rehabilitation
DX: M54.41 Lumbago with sciatica, right side (principal); M54.42 Lumbago with sciatica, left side; G89.29 Other chronic pain; R25.1 Tremor, unspecified; T40.601A Poisoning by unspecified narcotics, accidental (unintentional), initial encounter; G43.909 Migraine, unspecified, not intractable, without status migrainosus
CPT/HCPCS: 72100; 99202

== ENCOUNTER 2025-02-12 10:22 | Outpatient (AMB) | payer MEDICARE, MEDICAID, SELFPAY ==
--- NOTE | 2025-02-12 10:26 | MHC.OFFVIS ---
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 Patient was referred by on 10/27/24 for Chronic back pain and X rays of her pelvis was done at that visit. At that visit it was discussed that she tried Tramadol and Percocet without relief. At today's visit she states that the lower back pain is radiating down both legs, constant tingling but no numbness. Patient states that she has tried physical therapy but no relief, injections did not help. History of -fibromyalgia. [employer] Wireless Manager Required: Yes [employer] Wireless Manager Services: [employer] Wireless Manager Present [employer] Wireless Manager Name: Jocelyn [phone] Allergies ibuprofen Allergy (Verified 02/12/25 10:32) Itching Medication List - Last Reconciled 02/12/25 by Yomaira Engel MD albuterol sulfate 90 mcg/actuation 2 puffs inhalation Q6H PRN aspirin 81 mg PO DAILY atorvastatin 40 mg PO DAILY blood sugar diagnostic (FreeStyle Lite Strips) As directed bupropion HCl XL 300 mg PO DAILY bupropion HCl XL 150 mg PO QAM calcium carbonate (Oyster Shell Calcium 500) 500 mg PO BID cholecalciferol (vitamin D3) 25 mcg PO DAILY diclofenac sodium 1% 2 grams topical TID docusate sodium 100 mg PO BID escitalopram oxalate 10 mg PO QAM fluticasone propionate 110 mcg/actuation (Flovent HFA) 1 puff inhalation BID fluticasone propionate 50 mcg/actuation 1 spray intranasal BID hydroxyzine HCl 50 mg PO BEDTIME lancets (TRUEplus Lancets) As directed lanolin ifpnnrf-uv-s.pet-ceres (Eucerin topical cream) 1 appl topical DAILY levothyroxine 137 mcg PO DAILY loratadine 10 mg PO DAILY PRN lorazepam 1 mg PO DAILY PRN mirtazapine 7.5 mg PO BEDTIME polyethylene glycol 3350 17 grams PO DAILY sennosides (senna) 8.6 mg PO DAILY sitagliptin phosphate (Januvia) 100 mg PO DAILY HPI Comments Details: Patient was seen by Orthopedics for right hip pain. Thought to be more related to chronic back pain. Referred to physiatry. On further review of records, I saw the patient already saw pain management in July 2024: ?X-ray offered, patient declined PT offered, patient declined Discussed options for treatment including diagnostic interventional testing, epidural steroid injections, peripheral nerve stimulation with Sprint, RFA and more permanent neuromodulation. Patient declines any types of interventional management. States she has been through this previously at [facility] pain management she is not interested in proceeding with interventional pain management at this time. Here with . Same chronic lower back pain that she used to see [facility] Pain Management for. But she says she is coming today for a different pain. This new pain started last June 2024. Lower back pain going down to both legs/toes. Numbness on both feet. Diabetic. History of peripheral neuropathy. She looks very sleepy today saying she does not sleep at night. Not very good historian. Denies taking any medications that make her drowsy. But she does take medications prescribed by Psychiatry. [facility] lists opiate overdose more than 3 years ago. Denies marijuana or illicit drugs or opiates. [facility] Medical History Hypotension Osteoarthritis of knees, bilateral Fibromyalgia Hyperparathyroidism Vitamin D deficiency History of thyroid cancer Postsurgical hypothyroidism H/O malignant neoplasm of skin Lumbar spondylosis Vitamin D deficiency Osteopenia Dyslipidemia Diabetic polyneuropathy associated with type 2 diabetes mellitus Post-surgical hypothyroidism Primary thyroid cancer Diabetes type 2, controlled Surgical History History of lip cancer History of biopsy History of bunionectomy Hx of cholecystectomy Hx of thyroidectomy Hx of colonoscopy History of carpal tunnel release Hx of hysterectomy Hx of mastectomy Family History Father Diabetes mellitus Mother Cancer of eye Skin cancer of nose Social History Household Members: None Housing: Apartment Are you a primary ambulatory care coordinator to a significant other at home: No Do you presently have visiting nurse or other home services: Yes (signal intelligence analyst) Unable to assess alcohol history related to: Unable to respond Alcohol intake: never Comment: ref alarm, ambulating in room Patient Tobacco Use Status: Current everyday Tobacco user Substance Use Type: Opiates service: No Current occupational status: disabled Review of Systems Const All systems reviewed & are unremarkable except as noted in HPI and below Physical Exam Exam Exam: Constitutional: Patient appears to be in no acute distress, well nourished and well developed. Poor historian. Very sleepy appearing. Repetitive movements in her hands, appear almost pill rolling. Neurological: Negative pronator drift. Kern?s negative bilaterally. Babinski was down going bilaterally. Clonus was negative. Gait is non-antalgic without loss of balance. Questions shuffling gait? Vital Signs: BMI result Body Mass Index 26.2 Results Reviewed Results Reviewed: Ordering Physician: Deya Nichole PA-C Date of Service: 10/27/24 Procedure(s): XR pelvis 1-2V Accession Number(s): [id number] cc: Deya Nichole PA-C~ EXAMINATION: XR PELVIS 1-2 VIEWS HISTORY: M25.559 - Pain in unspecified hip COMPARISON: Correlation is made with plain films of the right hip dated 06/05/2024. FINDINGS: A single AP view of the pelvis is submitted. The bones are osteopenic. There is no fracture or dislocation. There is mild narrowing of the bilateral hip joints. The sacroiliac joints are maintained. The soft tissues are unremarkable. XR/XR pelvis 1-2V IMPRESSION: Osteopenia. Mild narrowing of the bilateral hip joints. Electronically signed by: Jose Luis Staley MD 10/27/2024 11:29 AM EDT RP Ordering Physician: Alicja Devries NP Date of Service: 09/25/21 Procedure(s): XR lumbar spine 2-3V Accession Number(s): [id number] cc: Alicja Devries NP~ EXAMINATION: XR LUMBOSACRAL SPINE CLINICAL INFORMATION: Spondylosis COMPARISON: 03/17/2019 TECHNIQUE: Three views of the lumbosacral spine. FINDINGS: Normal alignment. No compression fracture. Mild multilevel degenerative endplate changes throughout the lumbar spine without significant disc space narrowing. Bilateral pars defects at L5. The soft tissues are unremarkable. The bowel gas pattern is normal. XR/XR lumbar spine 2-3V IMPRESSION: Stable spondylosis. Stable bilateral pars defects at L5 with no malalignment. I reviewed records from the following: Ortho Pain management Endocrine: postsurgical hypothyroidism after total thyroidectomy due to thyroid cancer. Assessment & Plan Assessment & Plan (1) Chronic lower back pain: Code(s): M54.50 - Low back pain, unspecified; G89.29 - Other chronic pain Category: Medical Qualifiers: Back pain laterality: bilateral Sciatica laterality: bilateral sciatica Sciatica presence: with sciatica Qualified Code(s): M54.42 - Lumbago with sciatica, left side; M54.41 - Lumbago with sciatica, right side; G89.29 - Other chronic pain (2) Pill rolling tremors: Code(s): R25.1 - Tremor, unspecified Category: Medical Plan I brought up that she saw Pain Management in July and declined their recommendations such as PT and interventions/injections. helped explain that to her. says patient is illiterate (she didn't go to school) that she will not understand. I'm not sure if patient will be cooperative with recommendations. She did say that she will consider injections. I explained that if we are going to consider injections again, we will have to repeat xrays, PT and maybe MRI again. But I am concerned that she will not cooperate with recommendations. Patient did say she does not understand . Separate from her back, she presents with some form of dyskinesia on her hands, almost appear like pill-rolling. denies parkinsons in the family. Whether this maybe from psych medications versus neurologic condition, would be reasonable to refer to Neurology. As for her back pain, we will give it a chance. Repeat lumbar xrays today. Refer to PT. Consider repeat lumbar MRI. Assessment and plan discussed with patient, and patient was agreeable. All questions were answered thoroughly. Follow up 2 months. Yomaira Engel MD, LUIS Board Certified, [place] Board of Physical Medicine and Rehabilitation (ABPMR) Board Certified, [place] Board of Electrodiagnostic Medicine (ABEM) Orders: Orders XR lumbar spine 2-3V Today M54.9 - Dorsalgia, unspecified, T40.601A - Poisoning by unspecified narcotics, accidental (unintentional), initial encounter PT Evaluation and Treatment Today G89.29 - Other chronic pain, M54.50 - Low back pain, unspecified, R25.1 - Tremor, unspecified Referrals Neurology Referral G43.909 - Migraine, unspecified, not intractable, without status migrainosus, R25.1 - Tremor, unspecified, T40.601A - Poisoning by unspecified narcotics, accidental (unintentional), initial encounter Coding Level of Care Code New Pt Level 4 (47478) Complex EM visit Add On G2211 Diagnoses Chronic bilateral low back pain with bilateral sciatica M54.42; M54.41; G89.29 Back pain laterality: bilateral Sciatica laterality: bilateral sciatica Sciatica presence: with sciatica Pill rolling tremors R25.1
[2025-02-12 10:32] VITALS: BMI 26.2
--- OUTSIDE RECORDS SUMMARY | 2025-02-12 10:37 | XMS_ITS | Clinical Summary ---
Author Organization [address] [facility] Address [address] [place] [address] Phone Care Team Providers Care Pole Cutter Name Role Phone Gordon Velez Primary Care [...] propionate (FLONASE) 50 mcg/actuation nasal spray 1 [place] by Each Nare route 2 times daily. [...] Diagnosed Date T2DM (type 2 diabetes mellitus) ([facility] V[facility], [facility] V28) 06/01/2024 Hyperlipidemia associated wi th type 2 diabetes mellitus ([facility] V24, [facility] V28) 06/01/2024 Social History Tobacco Use Types [...] ars (1 of 2 - PCV) 10/11/1978 Cervical Cancer Screening: P ap Smear 10/11/1980 Zoster Vaccines (1 of 2) 10/11/2009 Cholesterol Screening (Lipid Panel) 06/19/2022 Colorectal Cancer Screening: Colonoscopy 06/19/2022 Hepatitis C Screening 06/19/2022 Osteoporosis Screening (Bone Density Screening) 06/19/2022 Social Influencers of Health Screening 06/19/2022 COVID-19 Vaccine ( - 2023-2 5 season) 2024 Diabetes: Annual Urine Albumin-Creatinine Ratio (uACR) 06/01/2024 Diabetes: Blood Sugar Contro l Test (HGBA1C) 06/01/2024 Depression Screening 07/22/2024 Falls Risk Assessment 10/11/2024 Influenza Vaccine (#1) 2025 RSV Immunization Adult Patie nts (1 [...] topic Insurance MEDICAID - [place] Care Teams Pole Cutter Relationship Specialty Start Date End Date Gordon Velez [address] [place], [place] [phone] PCP - General Internal Medicine 05/15/24
--- OUTSIDE RECORDS SUMMARY | 2025-02-12 10:37 | XMS_ITS | Encounter Summary ---
Author Organization [employer] Address [address] [facility] 7t [place] [address] Care Team Providers Care Plasterer Spray Gun Name Role Phone Gordon Velez MD Primary Care Prov ider Encounter Details Date Type Department Care Team ([facility] st Contact Info) Description 10/07/2024 Orders Only [facility] CHC MED & PEDS [address] [place], [place] [phone] Gordon Velez MD [address] [place] [address] Type 2 diabetes mellitus without complication, without long-term current use of insulin ([facility]) Social History Tobacco Use Types [...] Upcoming Encounters Date Type Department Care Team ([facility] st Contact Info) Description 02/15/2025 11:15 AM EDT Office Visit [facility] MED & PEDS [address] [place] [address] Homar Shields MD [address] [place] [address] 02/22/2025 10:30 AM EDT Office Visit [facility] MED & PEDS [address] [place] [address] Homar Shields MD [address] [place] [phone] 03/03/2025 2:30 PM EDT Telemedicine [facility] MED & PEDS [address] [place] [address] Gordon Velez MD [address] [place] [address] documented as of this encounter Visit Diagnoses Diagnosis Type 2 diabetes mellitus without complication, without long-term current use of insulin ([facility]) documented in this encounter Additional Health Concerns Assessment Noted Time PHQ-9 Depression Total Score: 18 024 1:56 PM EDT documented as of this encounter Care Teams Plasterer Spray Gun Relationship Specialty Start Date End Date Gordon Velez MD [address] [place] [address] PCP - General Internal Medicine 11/30/19 documented as of this encounter
--- OUTSIDE RECORDS SUMMARY | 2025-02-12 10:37 | XMS_ITS | Clinical Summary ---
Author Organization [facility] Address [address] [place] [address] Care Team Providers Care Director Dental Services Name Role Phone Verna Michael Mcclain Primary Care Provider + [phone] Allergies No known active allergies Medications traMADoL [...] Health Care Proxy Review 07/22/2024 Influenza Vaccine (#1) 2025 8, 05/31/2016 DTaP,Tdap,and Td Vaccines (3 - Td or Tdap) 02/12/2029 02/12/2019, 09/04/2014, 09/04/2014 RSV Vaccine (60+ years old a nd patients) (1 - 1-dose 75+ series) 10/11/2034 Hepatitis B Vaccines Aged Out No long er eligible based on patient's age to complete this topic Insurance [employer] Care Teams Director Dental Services Relationship Specialty Start Date End Date Michael Gillespie [address] [place] [address] PCP - General Internal Medicine 11/24/20
== END 2025-02-12 11:43 | disposition home or self-care (01) ==
LOC: HO.HOS 10:23
PROVIDERS: PCP Internal Medicine; Visit Provider Physical Medicine & Rehabilitation
DX: M54.42 Lumbago with sciatica, left side (principal); M54.41 Lumbago with sciatica, right side; G89.29 Other chronic pain; R25.1 Tremor, unspecified
CPT/HCPCS: 99204; G2211

== ENCOUNTER → 2025-02-12 11:09 | Outpatient (BNV) | payer MEDICARE, MEDICAID, SELFPAY | PROVIDERS: PCP Internal Medicine; Visit Provider Radiology Diagnostic Radiology | DX: M51.360 Other intervertebral disc degeneration, lumbar region with discogenic back pain only (principal) | CPT/HCPCS: 72100 ==

== ENCOUNTER 2025-04-26 14:34 | Outpatient (REF) | payer MEDICARE, SELFPAY ==
--- OUTSIDE RECORDS SUMMARY | 2025-04-26 13:15 | XMS_ITS | Encounter Summary ---
Author Organization [employer] Address 75 [facility] 7t [place] [address] Care Team Providers Care Nurse Infection Control Name Role Phone Gordon Velez MD Primary Care Prov ider Reason for Visit * Reason Comments OBAT F/U Encounter Details Date Type Department Care Team ([facility] Contact Info) Description 04/26/2025 1:15 PM EDT Office Visit [facility] MED & PEDS [address] [place], [place] [phone] Homar Shields MD [address] [place] [address] Opioid type dependence, continuous (CMS/HCC) (HCC) (Primary Dx) Social History Tobacco Use Types Packs/Day Years [...] AM EDT documented as of this encounter Progress Notes * Homar Shields MD - 04/26/2025 1:15 PM EDT Patient with OUD for OBAT. The Buprenorphine/Naloxone dose is currently being adjusted. Pt has beenin the program for 3 months. Induction date: 01/05/25. LFTs done 12/10/2024. Patient actively enrolled w/ [facility]. Sees Dr. Gurrola at [facility]. Last PCP appt 11/16/2024. LAST OBAT VISIT 04/19/2025 UTOX: POS BUP, FEN, THC NEG FOR OTHER SUBSTANCES Patient presents for OUD OBAT visit Long history of street-purchased Percocet use (13 years) Undergone intake by Dr. 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 UTOX serially positive for FEN Repeatedly denied narcotic use States she is unaware of the source of OPI or FEN Also states she is often using 2 films of Suboxone (requesting for an increased dose) States Suboxone has been helpful with cravings The program policy reviewed with the patient Has prescribed Clonazepam from her psychiatrist Reviewed the clinic goals, expectations and policies Consented to the treatment options Follow up in 1 week TODAY OBAT VISIT 04/26/2025 UTOX: POS BUP & FEN NEG FOR OTHER SUBSTANCES Patient presents for OUD OBAT visit Long history of street-purchased Percocet use (13 years) Undergone intake by Dr. 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 States she is unaware of the source of OPI or FEN Requesting to continue at Suboxone 8mg/2mg SL BID dose States Suboxone has been helpful with cravings The program policy reviewed with the patient Has prescribed Clonazepam from her psychiatrist (has an appointment this week) Will send urine out for confirmation for Buprenorphine, Norbuprenorphine, and Fentanyl Reviewed the clinic goals, expectations and policies Consented to the treatment options Follow up in 1 week Review of Systems Psychiatric/Behavioral: Negative for behavioral problems and dysphoric mood. The patient is not nervous/anxious. Physical Exam Constitutional: Appearance: Normal appearance. Pulmonary: Effort: Pulmonary effort is normal. Neurological: Mental Status: She is alert. Psychiatric: Mood and Affect: Mood normal. Behavior: Behavior normal. Jodi was seen today for obat f/u . Diagnoses and all orders for this visit: Opioid type dependence, continuous (CMS/[facility]) ([facility]) (Primary) - POCT TONY-14 Urine Drug Screen - POCT TONY-14 Urine Drug Screen - Drug Toxicology Monitoring Buprenorphine, with Confirmation, Urine - Drug Monitoring, Fentanyl, with Confirmation, Urine Patient presents for a routine OUD OBAT visit Discussed treatment options for opioid dependence Patient is tolerating current treatment Rx for Buprenorphine-Naloxone 8mg-2mg SL bid (#14) sent UTOX serially positive for FEN Repeatedly denied narcotic use States she is unaware of the source of OPI or FEN States Suboxone has been helpful with cravings Discussed behavioral modification and accessing services Counseling provided with a focus on support system, tools for achieving/maintaining recovery Will send urine out for confirmation for Buprenorphine, Norbuprenorphine, and Fentanyl Reviewed barriers for these goals Fentanyl-testing strips provided Discussed strategies to address when faced situations that may trigger use Continue with current visit schedule Narcan use discussed [place] reviewed Reviewed risk assessment for family planning, STI and PrEP Follow up in 1 week This information has been disclosed to you from records protected by federal confidentiality rules (42 CFR Part 2). The federal rules prohibit you from making any further disclosure of information inthis record that identifies a patient as having or having had a substance use disorder either directly, by reference to publicly available information, or through verification of such identification by another person unless further disclosure is expressly permitted by the written consent of the individual whose information is being disclosed or as otherwise permitted by (see2.3.1). The federal rules restrict any use of the information to investigate or prosecute with regard to a crime any patient with a substance use disorder, except as provided at 2.12??(5) and 2.65. documented in this encounter Plan of Treatment Upcoming Encounters Date Type Department Care Team (Late st Contact Info) Description 05/03/2025 1:15 PM EDT Office Visit [facility] MED & PEDS [address] [place] [address] Homar Shields MD [address] [place] [address] 05/10/2025 1:00 PM EDT Office Visit [facility] MED & PEDS [address] [place] [address] Homar Shields MD [address] [place] [phone] 06/08/2025 1:30 PM EST Office Visit [facility] MED & PEDS [address] [place] [address] Gordon Velez MD [address] [place] [address] Scheduled Orders Name Type Priority Associated Diagnoses Orde r Schedule Drug Toxicology Monitoring Buprenorphine, with Confirmation, Urine Lab Routine Opioid type dependence, continuous ([facility]) ([facility]) Ordered: 04/26/2025 Drug Monitoring, Fentanyl, with Confirmation, Urine Lab Routine Opioid type dependence, continuous ([facility]) ([facility]) Ordered: 04/26/2025 documented as of this encounter Goals Goal Patient Goal Type Associated Problems Recent Progress Patient-Stated? Author Enhanced ability to interact with others without suspicion or defensiveness Helen Izquierdo RN documented as of this encounter Procedures Procedure Name Priority Date/Time Associated Diagnosis Comments POCT OTNY-14 URINE DRUG SCREEN Routine 04/26/2025 1:27 PM EDT Opioid type dependence, continuous (CMS/HCC) (HCC) POCT TONY-14 URINE DRUG SCREEN Routine 04/26/2025 1:15 PM EDT Opioid type dependence, continuous (CMS/HCC) (HCC) documented in this encounter Results * (ABNORMAL) POCT TONY-14 Urine Drug Screen (04/26/2025 1:27 PM EDT) THC Negative Negative Cocaine Screen, Urine Negative Negative Opiate Screen, Urine Negative Negative Methamphetamine Screen Urine Negative Negative Amphetamine Screen, Urine Negative Negative Benzodiazepines Screen, Urine Negative Negative Barbiturate Screen, Urine Negative Negative Methadone Screen, Urine Negative Negative Buprenophine Screen, Urine Positive(A) Negative TCA, Urine Negative Negative MDMA Urine Negative Negative ng/mL Oxycodone Screen, Urine Negative Negative Phencyclidine (PCP), Urine Negative Negative Fentanyl, Urine Positive(A) Negative Urine Urine specimen obtained by clean catch procedure / Unknown 04/26/2025 1:27 PM EDT us Homar Shields MD POINT OF CARE TEST ENTER/EDIT OR DERABLES Final Result * (ABNORMAL) POCT TONY-14 Urine Drug Screen (04/26/2025 1:15 PM EDT) Urine Urine specimen obtained by clean catch procedure / Unknown 04/26/2025 1:15 PM EDT us Homar Shields MD POINT OF CARE TEST ENTER/EDIT OR DERABLES Edited Result - Final documented in this encounter Visit Diagnoses Diagnosis Opioid type dependence, continuous (CMS/HCC) (HCC)- Primary Opioid type dependence, continuous documented in this encounter Additional Health Concerns Assessment Noted Time PHQ-9 Depression Total Score: 5 10/16/ 25 10:16 AM EDT documented as of this encounter Care Teams Nurse Infection Control Relationship Specialty Start Date End Date Gordon Velez MD [address] [place] [address] PCP - General Internal Medicine 11/30/19 documented as of this encounter
--- OUTSIDE RECORDS SUMMARY | 2025-04-26 17:01 | XMS_ITS | Encounter Summary ---
Author Organization [employer] Address [address] [facility] 7 [place] [address] Care Team Providers Care Machine Operator Farmworker Name Role Phone Gordon Velez MD Primary Care Prov ider Reason for Visit * Reason Onset Date Comments Prior Authorization 10/01/2024 Encounter Details Date Type Department Care Team (Late st Contact Info) Description 10/01/2024 Telephone [facility] MEDICINE [address] [place] [address] Gordon Velez MD [address] [place], [place] [phone] Prior Authorization Social History Tobacco Use Types [...] [employer] Lancets 33G misc. Contact pt at [phone] * Telephone Encounter - Alec Moran - 10/01/2024 12:35 PM EDT Tc from pt requesting PA for med [employer] Lancets 33G misc. Contact pt at [phone] documented in this encounter Plan of Treatment Upcoming Encounters Date Type Department Care Team (Late st Contact Info) Description 05/03/2025 1:15 PM EDT Office Visit [facility] MED & PEDS [address] [place] [address] Homar Shields MD [address] [place] [address] 05/10/2025 1:00 PM EDT Office Visit [facility] MED & PEDS [address] [place], [place] [phone] Homar Shields MD [address] [place] [address] 06/08/2025 1:30 PM EST Office Visit [facility] MED & PEDS [address] [place] [address] Gordon Velez MD [address] [place] [address] documented as of this encounter Visit Diagnoses Not on filedocumented in this encounter Additional Health Concerns Assessment Noted Time PHQ-9 Depression Total Score: 18 024 1:56 PM EDT documented as of this encounter Care Teams Machine Operator Farmworker Relationship Specialty Start Date End Date Gordon Velez MD [address] [place] [address] PCP - General Internal Medicine 11/30/19 documented as of this encounter
--- OUTSIDE RECORDS SUMMARY | 2025-04-26 17:01 | XMS_ITS | Encounter Summary ---
Author Organization [employer] Address [address] [facility] 7t [place] [address] Care Team Providers Care Litigation Associate Name Role Phone Gordon Velez MD Primary Care Prov ider Encounter Details Date Type Department Care Team ([facility] st Contact Info) Description 10/07/2024 Orders Only [facility] CH[facility] MED & PEDS [address] [place], [place] [phone] Gordon Velez MD [address] [place] [address] Type 2 diabetes mellitus without complication, without long-term current use of insulin ([facility]) Social History Tobacco Use Types Packs/Day [...] Upcoming Encounters Date Type Department Care Team ([facility] st Contact Info) Description 05/03/2025 1:15 PM EDT Office Visit [facility] MED & PEDS [address] [place] [address] Homar Shields MD [address] [place] [address] 05/10/2025 1:00 PM EDT Office Visit [facility] MED & PEDS [address] [place] [address] Homar Shields MD [address] [place] [address] 06/08/2025 1:30 PM EST Office Visit [facility] MED & PEDS [address] [place] [address] Gordon Velez MD [address] [place] [address] documented as of this encounter Visit Diagnoses Diagnosis Type 2 diabetes mellitus without complication, without long-term current use of insulin (HCC) documented in this encounter Additional Health Concerns Assessment Noted Time PHQ-9 Depression Total Score: 18 024 1:56 PM EDT documented as of this encounter Care Teams Litigation Associate Relationship Specialty Start Date End Date Gordon Velez MD [address] [place] [address] PCP - General Internal Medicine 11/30/19 documented as of this encounter
--- OUTSIDE RECORDS SUMMARY | 2025-04-26 17:01 | XMS_ITS | Encounter Summary ---
Author Organization [employer] Address [address] [facility] 7 [place] [address] Care Team Providers Care Recovery Rn Name Role Phone Gordon Velez MD Primary Care Prov ider Reason for Visit * Reason Comments Med Refill Encounter Details Date Type Department Care Team ([facility] st Contact Info) Description 08/13/2024 Refill [facility] CHC MED & PEDS [address] [place], [place] [phone] Gordon Velez MD [address] [place] [address] Social History Tobacco Use Types Packs/Day Years [...] Description 05/03/2025 1:15 PM EDT Office Visit [facility] MED & PEDS [address] [place] [address] Homar Shields MD [address] [place] [address] 05/10/2025 1:00 PM EDT Office Visit [facility] MED & PEDS [address] [place] [address] Homar Shields MD [address] [place] [address] 06/08/2025 1:30 PM EST Office Visit [facility] MED & PEDS [address] [place] [address] Gordon Velez MD [address] [place] [address] documented as of this encounter Visit Diagnoses Not on filedocumented in this encounter Additional Health Concerns Assessment Noted Time PHQ-9 Depression Total Score: 18 024 1:56 PM EDT documented as of this encounter Care Teams Recovery Rn Relationship Specialty Start Date End Date Gordon Velez MD [address] [place] [address] PCP - General Internal Medicine 11/30/19 documented as of this encounter
--- OUTSIDE RECORDS SUMMARY | 2025-04-26 17:01 | XMS_ITS | Encounter Summary ---
Author Organization [employer] Address 75 [facility] 7 [place] [address] Care Team Providers Care Tube Dispatcher Name Role Phone Gordon Velez MD Primary Care Prov ider Reason for Visit * Reason Onset Date Comments Med Request 09/17/2024 Encounter Details Date Type Department Care Team ([facility] st Contact Info) Description 09/17/2024 Telephone [facility] MEDICINE [address] [place] [address] Gordon Velez MD [address] [place], [place] [phone] Med Request Social History Tobacco Use Types [...] AM EST Tc from pt requesting medication Lcrkhdi-Euvdyda-Cdzywh Collin (Medicated Pain Relieving) 1.2-5.7-6.3 % patch to be sent to [facility], pt inform she needs a better dosage for pain. documented in this encounter Plan of Treatment Upcoming Encounters Date Type Department Care Team (Late st Contact Info) Description 05/03/2025 1:15 PM EDT Office Visit [facility] MED & PEDS [address] [place] [address] Homar Shields MD [address] [place] [address] 05/10/2025 1:00 PM EDT Office Visit [facility] MED & PEDS [address] [place] [address] Homar Shields MD [address] [place] [address] 06/08/2025 1:30 PM EST Office Visit [facility] MED & PEDS [address] [place] [address] Gordon Velez MD [address] [place] [address] documented as of this encounter Visit Diagnoses Not on filedocumented in this encounter Additional Health Concerns Assessment Noted Time PHQ-9 Depression Total Score: 18 024 1:56 PM EDT documented as of this encounter Care Teams Tube Dispatcher Relationship Specialty Start Date End Date Gordon Velez MD [address] [place] [address] PCP - General Internal Medicine 11/30/19 documented as of this encounter
--- OUTSIDE RECORDS SUMMARY | 2025-04-26 17:02 | XMS_ITS | Encounter Summary ---
Author Organization [employer] Address 75 [facility] 7t [place] [address] Care Team Providers Care Wire Wheeler Name Role Phone Gordon Velez MD Primary Care Prov ider Encounter Details Date Type Department Care Team ([facility] st Contact Info) Description 08/21/2023 Orders Only [facility] MED & PEDS [address] [place], [place] [phone] Gordon Velez MD [address] [place] [address] Social History Tobacco Use Types Packs/Day Years [...] Description 05/03/2025 1:15 PM EDT Office Visit [facility] MED & PEDS [address] [place] [address] Homar Shields MD [address] [place] [address] 05/10/2025 1:00 PM EDT Office Visit [facility] MED & PEDS [address] [place] [address] Homar Shields MD [address] [place] [address] 06/08/2025 1:30 PM EST Office Visit [facility] MED & PEDS [address] [place] [address] Gordon Velez MD [address] [place] [address] documented as of this encounter Visit Diagnoses Not on filedocumented in this encounter Care Teams Wire Wheeler Relationship Specialty Start Date End Date Gordon Velez MD [address] [place] [address] PCP - General Internal Medicine 11/30/19 documented as of this encounter
--- OUTSIDE RECORDS SUMMARY | 2025-04-26 17:02 | XMS_ITS | Encounter Summary ---
Author Organization [employer] Address 75 [facility] 7t [place] [address] Care Team Providers Care Electric Power Line Examiner Name Role Phone Gordon Velez MD Primary Care Prov ider Reason for Visit * Reason Comments Med Refill Encounter Details Date Type Department Care Team (Late st Contact Info) Description 01/31/2024 Refill [facility] MEDICINE [address] [place] [address] Gordon Velez MD [address] [place], [place] [phone] Severe persistent asthma without complication Social History [...] t he electric, gas, oil or water [employer] threatened to shut off services in your [...] 05/03/2025 1:15 PM EDT Office Visit [facility] MED & PEDS [address] [place] [address] Homar Shields MD [address] [place] [address] 05/10/2025 1:00 PM EDT Office Visit [facility] MED & PEDS [address] [place] [address] Homar Shields MD [address] [place] [address] 06/08/2025 1:30 PM EST Office Visit [facility] MED & PEDS [address] [place] [address] Gordon Velez MD [address] [place] [address] documented as of this encounter Visit Diagnoses Diagnosis Severe persistent asthma without complication (HCC) documented in this encounter Care Teams Electric Power Line Examiner Relationship Specialty Start Date End Date Gordon Velez MD [address] [place] [address] PCP - General Internal Medicine 11/30/19 documented as of this encounter
--- OUTSIDE RECORDS SUMMARY | 2025-04-26 17:02 | XMS_ITS | Encounter Summary ---
Author Organization [employer] Address 75 [facility] 7 [place] [address] Care Team Providers Care Tape Keller Operator Name Role Phone Gordon Velez MD Primary Care Prov ider Reason for Visit * Reason Onset Date Comments Med Refill 11/04/2024 Encounter Details Date Type Department Care Team ([facility] st Contact Info) Description 11/04/2024 Telephone [facility] MED & PEDS [address] [place] [address] Gordon Velez MD [address] [place] [address] Med Refill Social History Tobacco Use Types [...] chart. PCP will not be refilling med. SUPERVISOR CONTACT AND SERVICE CLERKS nurses tried contacting pt to inform. * Telephone Encounter - Kasandra Vidal - 11/04/2024 12:50 PM EDT TC from pt requesting medication refill. Medications needing refill : oxyCODONE-acetaminophen (Percocet) 5-325 MG tablet To be sent to: [facility] [place] - [address] [facility] documented in this encounter Plan of Treatment Upcoming Encounters Date Type Department Care Team (Late st Contact Info) Description 05/03/2025 1:15 PM EDT Office Visit [facility] CHC MED & PEDS [address] [place] [address] Homar Shields MD [address] [place] [address] 05/10/2025 1:00 PM EDT Office Visit [facility] MED & PEDS [address] [place] [address] Homar Shields MD [address] [place] [address] 06/08/2025 1:30 PM EST Office Visit [facility] MED & PEDS [address] [place] [address] Gordon Velez MD [address] [place] [address] documented as of this encounter Visit Diagnoses Not on filedocumented in this encounter Additional Health Concerns Assessment Noted Time PHQ-9 Depression Total Score: 5 10/17/19 25 10:16 AM EDT documented as of this encounter Care Teams Tape Keller Operator Relationship Specialty Start Date End Date Gordon Velez MD [address] [place] [address] PCP - General Internal Medicine 11/30/19 documented as of this encounter
--- OUTSIDE RECORDS SUMMARY | 2025-04-26 17:02 | XMS_ITS | Encounter Summary ---
Author Organization [employer] Address 75 [facility] 7 [place] [address] Care Team Providers Care Phone Specialist Name Role Phone Gordon Velez MD Primary Care Prov ider Reason for Visit * Reason Onset Date Comments Medication Question 07/31/2024 Encounter Details Date Type Department Care Team ([facility] st Contact Info) Description 07/31/2024 Telephone [facility] MEDICINE [address] [place] [address] Gordon Velez MD [address] [place], [place] [phone] Medication Question Social History Tobacco Use Types [...] Description 05/03/2025 1:15 PM EDT Office Visit [facility] MED & PEDS [address] [place] [address] Homar Shields MD [address] [place] [address] 05/10/2025 1:00 PM EDT Office Visit [facility] MED & PEDS [address] [place] [address] Homar Shields MD [address] [place] [address] [place] [address] 06/08/2025 1:30 PM EST Office Visit [facility] CHC MED & PEDS [address] [place] [address] Gordon Velez MD [address] [place] [address] documented as of this encounter Visit Diagnoses Not on filedocumented in this encounter Additional Health Concerns Assessment Noted Time PHQ-9 Depression Total Score: 18 024 1:56 PM EDT documented as of this encounter Care Teams Phone Specialist Relationship Specialty Start Date End Date Gordon Velez MD [address] [place] [address] PCP - General Internal Medicine 11/30/19 documented as of this encounter
--- OUTSIDE RECORDS SUMMARY | 2025-04-26 17:02 | XMS_ITS | Clinical Summary ---
Author Organization [facility] Address [address] [place] [address] Phone Care Team Providers Care Director Of Infection Prevention Name Role Phone Gordon Velez Primary Care [...] propionate (FLONASE) 50 mcg/actuation nasal spray 1 [place] by Each Nare route 2 times daily. [...] Diagnosed Date T2DM (type 2 diabetes mellitus) ([facility] V24, [facility] V28) 06/01/2024 Hyperlipidemia associated wi th type 2 diabetes mellitus ([facility] V24, [facility] V28) 06/01/2024 Social History Tobacco Use Types Packs/Day Years Used Date Smoking Tobacco: Never Assessed Comments Unknown Sex and Gender Information Value Date Recorded Sex Assigned at Not on file Legal Sex Female 12:52 PM EST Gender Identity Not on file Sexual Orientation Not on file Plan of Treatment Health Maintenance Due Date Last Done Comments Breast Cancer Screening 1960 Colorectal Cancer Screening: Colonoscopy 1960 Diabetes: Annual GFR (Glomer ular Filtration Rate) 1959 Diabetes: Annual Foot Exam 10/11/1969 Diabetes: Annual Retina Eye Exam 10/11/1969 DTaP,Tdap,and Td Vaccines (1 - Tdap) 10/11/1978 Pneumococcal Vaccine: 50+ Ye ars (1 of 2 - PCV) 10/11/1978 Cervical Cancer Screening: P ap Smear 10/11/1980 Zoster Vaccines (1 of 2) 10/11/2009 Cholesterol Screening (Lipid Panel) 06/19/2022 Hepatitis C Screening 06/19/2022 Osteoporosis Screening (Bone Density Screening) 06/19/2022 Social Influencers of Health Screening 06/19/2022 Diabetes: Annual Urine Albumin-Creatinine Ratio (uACR) 06/01/2024 Diabetes: Blood Sugar Contro l Test (HGBA1C) 06/01/2024 Depression Screening 07/22/2024 Falls Risk Assessment 10/11/2024 COVID-19 Vaccine (1 - 2023-2 5 season) 2025 Influenza Vaccine (#1) 2025 RSV Immunization Adult [...] topic Insurance MEDICAID - [place] Care Teams Director Of Infection Prevention Relationship Specialty Start Date End Date Gordon Velez [address] [place], [place] [phone] PCP - General Internal Medicine 05/15/24
--- OUTSIDE RECORDS SUMMARY | 2025-04-26 17:02 | XMS_ITS | Encounter Summary ---
Author Organization [employer] Address [address] [facility] 7 [place] [address] Care Team Providers Care Night Time Babysitter Name Role Phone Gordon Velez MD Primary Care Prov ider Reason for Visit * Reason Onset Date Comments Med Refill 06/02/2024 Encounter Details Date Type Department Care Team ([facility] st Contact Info) Description 06/02/2024 Telephone [facility] [address] [place] [address] Gordon Velez MD [address] [place], [place] [phone] Med Refill Social History Tobacco Use Types [...] 50 MG tablet To be sent to: [facility] - [address] documented in this encounter Plan of Treatment Upcoming Encounters Date Type Department Care Team ([facility] st Contact Info) Description 05/03/2025 1:15 PM EDT Office Visit [facility] [address] [place] [address] Homar Shields MD [address] [place] [phone] 05/10/2025 1:00 PM EDT Office Visit [facility] [address] [place] [address] Homar Shields MD [address] [place] [phone] 06/08/2025 1:30 PM EST Office Visit [facility] [address] [place] [address] Gordon Velez MD [address] [place] [address] documented as of this encounter Visit Diagnoses Not on filedocumented in this encounter Additional Health Concerns Assessment Noted Time PHQ-9 Depression Total Score: 18 024 1:56 PM EDT documented as of this encounter Care Teams Night Time Babysitter Relationship Specialty Start Date End Date Gordon Velez MD [address] [place] [address] PCP - General Internal Medicine 11/30/19 documented as of this encounter
--- OUTSIDE RECORDS SUMMARY | 2025-04-26 17:02 | XMS_ITS | Encounter Summary ---
Author Organization [employer] Address [address] [facility] 7 [place] [address] Care Team Providers Care Bisque Brusher Name Role Phone Gordon Velez MD Primary Care Prov ider Reason for Visit * Reason Onset Date Comments Referral 09/24/2023 Encounter Details Date Type Department Care Team ([facility] st Contact Info) Description 09/24/2023 Telephone [facility] [address] [place] [address] Gordon Velez MD [address] [facility] [address] [place], [place] [phone] Referral Social History Tobacco Use Types Packs/Day [...] the past 12 months, has t he [employer], [employer], oil or water [employer] threatened to shut off services in your [...] was referred last month to GI at [facility]. Pt will be contacted when appts become available from their office. * Telephone Encounter - Macario Segura - 09/24/2023 12:52 PM EST TC from pt requesting new referral : DATE: N/A TIME:N/A Address: [address] [place] [address] [address] Floor, [place] [address] Visits: N/A Facility Name: [facility] Type of Specialist: Gastroenterologists Phone # : [phone] Pt is requesting referral for a colonoscopy stated no concerns. If any questions you can contact pt at [phone] documented in this encounter Plan of Treatment Upcoming Encounters Date Type Department Care Team ([facility] st Contact Info) Description 05/03/2025 1:15 PM EDT Office Visit [facility] MED & PED[facility] [address] [place] [address] Homar Shields MD [address] [place] [phone] 05/10/2025 1:00 PM EDT Office Visit [facility] [address] [place] [address] Homar Shields MD [address] [place] [phone] 06/08/2025 1:30 PM EST Office Visit [facility] [address] [place] [address] Gordon Velez MD [address] [place] [address] documented as of this encounter Visit Diagnoses Not on filedocumented in this encounter Care Teams Bisque Brusher Relationship Specialty Start Date End Date Gordon Velez MD [address] [place] [address] PCP - General Internal Medicine 11/30/19 documented as of this encounter
--- OUTSIDE RECORDS SUMMARY | 2025-04-26 17:02 | XMS_ITS | Encounter Summary ---
Author Organization [employer] Address 75 [facility] 7t [place] [address] Care Team Providers Care Knockdown Worker Name Role Phone Gordon Velez MD Primary Care Prov ider Encounter Details Date Type Department Care Team ([facility] st Contact Info) Description 05/13/2024 Orders Only [facility] & PEDS [address] [place], [place] [phone] Gordon Velez MD [address] [place] [address] Social History Tobacco Use Types Packs/Day Years [...] Upcoming Encounters Date Type Department Care Team ([facility] st Contact Info) Description 05/03/2025 1:15 PM EDT Office Visit [facility] MED & PEDS [address] [place] [address] Homar Shields MD [address] [place] [phone] 05/10/2025 1:00 PM EDT Office Visit [facility] P[facility] [address] [place] [address] Homar Shields MD [address] [place] [phone] 06/08/2025 1:30 PM EST Office Visit [facility] MED & PEDS [address] [place] [phone] Gordon Velez MD [address] [place] [address] documented as of this encounter Procedures Procedure Name Priority Date/Time Associated Diagnosis Comments TSH Routine 05/13/2024 2:24 PM EDT T4, FREE Routine 05/13/2024 2:24 PM EDT documented in this encounter Results * T4, Free (05/13/2024 2:24 PM EDT) Free T4 (Free Thyroxine) 0.98 0.71 - 1.85 ng/dL [facility] 05/13/2024 2:24 PM EDT 05/13/2024 5:31 PM EDT us Generic External Data Provider LAB BLOOD ORDERAB LES Final Result Performing Organization Address [facility] Co de Phone Number [facility] [address] [place] [address] [phone] * (ABNORMAL) TSH (05/13/2024 2:24 PM EDT) Thyroid Stimulating Hormone 0.20(L) 0.32 - 4.0 uIU/mL [facility] Comment:TSH 3rd Generation ( [facility]) 05/13/2024 2:24 PM EDT 05/13/2024 5:31 PM EDT us Generic External Data Provider LAB BLOOD ORDERAB LES Final Result Performing Organization Address [facility] de Phone Number [facility] [address] [place] [phone] documented in this encounter Visit Diagnoses Not on filedocumented in this encounter Additional Health Concerns Assessment Noted Time PHQ-9 Depression Total Score: 18 024 1:56 PM EDT documented as of this encounter Care Teams Knockdown Worker Relationship Specialty Start Date End Date Gordon Velez MD [address] [place] [phone] PCP - General Internal Medicine 11/30/19 documented as of this encounter
--- OUTSIDE RECORDS SUMMARY | 2025-04-26 17:02 | XMS_ITS | Encounter Summary ---
Author Organization [employer] Address 75 [facility] 7 [place] [address] Care Team Providers Care Clinical Trials Manager Name Role Phone Gordon Velez MD Primary Care Prov ider Reason for Visit * Reason Onset Date Comments Nurse Triage 01/18/2025 Encounter Details Date Type Department Care Team ([facility] st Contact Info) Description 01/18/2025 Telephone [facility] MED[facility]INE [address] [place] [address] Gordon Velez MD [address] [place], [place] [phone] Nurse Triage Social History Tobacco Use Types [...] encounter Miscellaneous Notes * Telephone Encounter - Katie Bailey RN - 01/18/2025 10:29 AM EDT Triage call with [facility] medical interpreter , [place] [address], Called Pt number [phone] x. Call would connect and fail. Unable to reach Pt. * Telephone Encounter - Macario Segura - 01/18/2025 10:11 AM EDT Symptom: Hip Pain - Not From Injury Outcome: Schedule an appointment to be seen within 24 hours Reason: Caller denied all higher acuity questions Please contact pt at [phone]. ([employer] Speaker) documented in this encounter Plan of Treatment Upcoming Encounters Date Type Department Care Team (Late st Contact Info) Description 05/03/2025 1:15 PM EDT Office Visit [facility] [address] [place] [address] Homar Shields MD [address] [place], [place] [phone] 05/10/2025 1:00 PM EDT Office Visit [facility] [address] [place] [address] Homar Sihelds MD [address] [place] [address] 06/08/2025 1:30 PM EST Office Visit [facility] [address] [place] [address] Gordon Velez MD [address] [place] [address] documented as of this encounter Visit Diagnoses Not on filedocumented in this encounter Additional Health Concerns Assessment Noted Time PHQ-9 Depression Total Score: 5 10/17/19 25 10:16 AM EDT documented as of this encounter Care Teams Clinical Trials Manager Relationship Specialty Start Date End Date Gordon Velez MD [address] [place] [address] PCP - General Internal Medicine 11/30/19 documented as of this encounter
--- OUTSIDE RECORDS SUMMARY | 2025-04-26 17:02 | XMS_ITS | Encounter Summary ---
Author Organization [employer] Address [address] [place] [address] 7 [place] [address] Care Team Providers Care Welfare Director Name Role Phone Gordon Velez MD Primary Care Prov ider Encounter Details Date Type Department Care Team (Late st Contact Info) Description 07/10/2022 Orders Only [facility] MED & PEDS [address] [place] [address] Katey Campos LPN Social History Tobacco Use [...] Description 05/03/2025 1:15 PM EDT Office Visit [facility]EDS [address] [place] [phone] Homar Shields MD [address] [place] [phone] 05/10/2025 1:00 PM EDT Office Visit [facility] MED & PEDS [address] [place] [address] Homar Shields MD [address] [place] [address] 06/08/2025 1:30 PM EST Office Visit [facility] MED & PEDS [address] [place] [address] Gordon Velez MD [address] [place] [address] documented as of this encounter Procedures Procedure [...] AM EDT) Thyroglobulin Antibody <1 <=1 IU/mL [facility] Comment:This Thyroglobulin a ntibody test was performedusing the shopandsave Chemiluminescent method.Values obtained from different assay methods cannot beused interchangeably. Thyroglobulin antibody levels,regardless of value, should not be interpreted asabsolute evidence of the presence or absence ofdisease. Thyroglobulin, LC/MS/MS TNP [facility] Thyroglobulin Level 0.5(A) ng/mL [facility] Comment:Reference Range: Ath yrotic: <0.1 ng/mLReference range applies to differentiated thyroidcancer patients following treatment. The presence ofmeasurable thyroglobulin indicates the presence ofthyroglobulin-producing thyroid tissue. Clinicalcorrelation is advised.This Thyroglobulin test was performed using theshopandsave Chemiluminescent method. Valuesobtained from different assay methods cannot beused interchangeably. Thyroglobulin levels, regardlessof value, should not be interpreted as absoluteevidence of the presence or absence of disease.THIS TEST WAS PERFORMED AT:[employer] [id number] [place] [address]LOPUTYGEDVIN REID MD,PHD 11/13/2022 11:2 9 AM EDT 11/13/2022 11:29 AM EDT us [facility] External Provider LAB BLO OD ORDERABLES Final Result [facility] [address] [place] [phone] * (ABNORMAL) TSH (11/13/2022 11:29 AM EDT) Thyroid Stimulating Hormone 24.45(H) 0.32 - 4.0 uIU/mL [facility] Comment:Note: A sustained TS H level above 2.5 uIU/mL may warrant further investigation. TSH 3rd Generation ([facility]) 11/13/2022 11:2 9 AM EDT 11/13/2022 11:29 AM EDT [facility] External Provider LAB BLO OD ORDERABLES Final Result Performing Organization Address City/[facility]/ZIP Co de Phone Number [facility] [address] [place] [phone] * (ABNORMAL) T4, Free (11/13/2022 11:29 AM EDT) Free T4 (Free Thyroxine) <0.42(L) 0.71 - 1.85 ng/dL [facility] 11/13/2022 11:2 9 AM EDT 11/13/2022 11:29 AM EDT [facility] External Provider LAB BLO OD ORDERABLES Final Result Performing Organization Address [facility] Co de Phone Number [facility] [address] [place] [phone] * (ABNORMAL) Thyroblobulin, Tumor Marker w/Reflex (11/08/2022 1:14 PM EDT) Pathologist [facility] Thyroglobulin Antibody <1 <=1 IU/mL [facility] Comment:This Thyroglobulin a ntibody test was performedusing the shopandsave Chemiluminescent method.Values obtained from different assay methods cannot beused interchangeably. Thyroglobulin antibody levels,regardless of value, should not be interpreted asabsolute evidence of the presence or absence ofdisease. Thyroglobulin, LC/MS/MS TNP [facility] Thyroglobulin Level 0.3(A) ng/mL [facility] Comment:Reference Range: Ath yrotic: <0.1 ng/mLReference range applies to differentiated thyroidcancer patients following treatment. The presence ofmeasurable thyroglobulin indicates the presence ofthyroglobulin-producing thyroid tissue. Clinicalcorrelation is advised.This Thyroglobulin test was performed using theshopandsave Chemiluminescent method. Valuesobtained from different assay methods cannot beused interchangeably. Thyroglobulin levels, regardlessof value, should not be interpreted as absoluteevidence of the presence or absence of disease.THIS TEST WAS PERFORMED AT:[id number] [place] [address]ZCHYOOCEDVIN REID MD,PHD 11/08/2022 1:14 PM EDT 11/08/2022 1:14 PM EDT [facility] External Provider LAB BLO OD ORDERABLES Final Result Performing Organization Address [facility] de Phone Number [facility] [address] [place] [phone] * (ABNORMAL) TSH (11/08/2022 1:14 PM EDT) Thyroid Stimulating Hormone 8.44(H) 0.32 - 4.0 uIU/mL [facility] Comment:Note: A sustained TS H level above 2.5 uIU/mL may warrant further investigation. TSH 3rd Generation ([facility]) 11/08/2022 1:14 PM EDT 11/08/2022 1:14 PM EDT [facility] External Provider LAB BLO OD ORDERABLES Final Result Performing Organization Address [facility] de Phone Number [facility] [address] [place] [phone] * (ABNORMAL) T4, Free (11/08/2022 1:14 PM EDT) Free T4 (Free Thyroxine) <0.42(L) 0.71 - 1.85 ng/dL [facility] 11/08/2022 1:14 PM EDT 11/08/2022 1:14 PM EDT [facility] External Provider LAB BLO OD ORDERABLES Final Result Performing Organization Address [facility] Co de Phone Number [facility] [address] [place] [address] [phone] * (ABNORMAL) Sed Rate by Modified Dominikergren (10/22/2022 10:13 AM EDT) Erythrocyte Sedimentation Rate 26(H) 0 - 20 MM/HR [facility] Comment:Patients with polycy themia and many hemoglobin abnormalitiesmay have depressed sed rates whereas patients with anemiamay have elevated sed rates. 10/22/2022 10:1 3 AM EDT 10/22/2022 10:13 AM EDT [facility] External Provider LAB BLO OD ORDERABLES Final Result Performing Organization Address [facility] Co de Phone Number [facility] [address] [place] [phone] * (ABNORMAL) C-reactive Protein (10/22/2022 10:13 AM EDT) C Reactive Protein 1.98(H) < or = 0.50 mg/dL [facility] 10/22/2022 10:1 3 AM EDT 10/22/2022 10:13 AM EDT [facility] External Provider LAB BLO OD ORDERABLES Final Result Performing Organization Address [facility]/ZIP Co de Phone Number [facility] [address] [place] [address] [phone] * ALT (10/22/2022 10:13 AM EDT) Alanine Aminotransferase 18 0 - 31 U/L [facility] 10/22/2022 10:1 3 AM EDT 10/22/2022 10:13 AM EDT [facility] External Provider LAB BLO OD ORDERABLES Final Result Performing Organization Address [facility]/ZIP Co de Phone Number [facility] [address] [place] [phone] * AST (10/22/2022 10:13 AM EDT) Aspartate Amino Transferase 20 5 - 31 U/L [facility] 10/22/2022 10:1 3 AM EDT 10/22/2022 10:13 AM EDT [facility] External Provider LAB BLO OD ORDERABLES Final Result Performing Organization Address [facility] Co de Phone Number [facility] [address] [place] [address] [phone] * Creatinine, Serum (10/22/2022 10:13 AM EDT) Creatinine, Serum 0.76 0.5 - 1.4 mg/dL [facility] Estimated Glomerular Filt Rate >60 [facility] Comment:NOTE: For -Am erican individuals, multiply the result by 1.210.Chronic Kidney Disease: Estimated GFR < 60 mL/min/[id number] Kidney Disease: Estimated GFR < 15 mL/min/1.73m2 10/22/2022 10:1 3 AM EDT 10/22/2022 10:13 AM EDT [facility] External Provider LAB BLO OD ORDERABLES Final Result Performing Organization Address [facility] Co de Phone Number [facility] [address] [place] [phone] [phone] * Tramadol, urine (10/22/2022 10:12 AM EDT) Tramadol, Ur >[id number] [facility] Comment: Report Name Results Units Reference Range SiteDRUG MONITOR, TRAMADOL, QN, URINE HN7Unahfcyjpeonjgwjp: >28406 (H)ng/mL <100Tramadol: >11137 (H)ng/mL <100Tramadol Comments: See Tramadol Notes, LDT NotesDRUG MONITORING TEMPLATE DM3Irtly and Comments:This drug testing is for medical treatment only.Analysis was performed as non-forensic testing andthese results should be used only by healthcareproviders to render diagnosis or treatment, or tomonitor progress of medical conditions.Tramadol Notes:Tramadol, Desmethyltramadol detected is consistent withthe use of the drug Tramadol.LDT Notes:Confirmation tests were developed and their analyticalperformance characteristics have been determined by[employer]. It has not been cleared or approvedby the FDA. This assay has been validated pursuant tothe CLIA regulations and is used for clinical purposes.Healthcare Providers needing Interpretation assistance,please contact us at [phone] ( )M- F, 8am to 10pm ESTSite InformationNL1:[employer] [place] [phone] Laboratory Director: Shekhar Pierre M.D. Desmethyltramadol, Ur >[id number] [facility] 10/22/2022 10:1 2 AM EDT 10/22/2022 10:38 AM EDT [facility] External Provider LAB URI NE ORDERABLES Final Result [facility] [address] [place] [phone] * (ABNORMAL) Drug Monitoring, Panel 1, Screen, Urine (10/22/2022 10:12 AM EDT) Opiate Screen Urine Not Detected Not Detect [facility] Comment:Opiate cut-off is 30 0 ng/mL.Positive results are unconfirmed and should not be used fornon-medical purposes. Barbiturates, Urine Not Detected Not Detect [facility] Comment:Barbiturate cut-off is 200 ng/mL.Positive results are unconfirmed and should not be used fornon-medical purposes. Phencyclidine Screen Urine Not Detected Not Detect [facility] Comment:Phencyclidine cut-of f is 25 ng/mL.Positive results are unconfirmed and should not be used fornon-medical purposes. Amphetamine Screen Urine Not Detected Not Detect [facility] Comment:Amphetamine cut-off is 1000 ng/mL.Positive results are unconfirmed and should not be used fornon-medical purposes. Benzodiazepines Screen Urine POSITIVE(A) Not Detect [facility] Comment:Benzodiazepine cut-o ff is 200 ng/mL.Positive results are unconfirmed and should not be used fornon-medical purposes. Cocaine Screen Urine Not Detected Not Detect [facility] Comment:Cocaine cut-off is 3 00 ng/mL.Positive results are unconfirmed and should not be used fornon-medical purposes. Cannabinoid Screen Urine POSITIVE(A) Not Detect [facility] Comment:Cannabinoid cut-off is 50 ng/mL.Positive results are unconfirmed and should not be used fornon-medical purposes. FENTANYL URINE POSITIVE(A) Not Detect [facility] Comment:Fentanyl cut-off is 1 ng/mL.Positive results are unconfirmed and should not be used fornon-medical purposes. 10/22/2022 10:1 2 AM EDT 10/22/2022 10:34 AM EDT [facility] External Provider LAB URI NE ORDERABLES Final Result [facility] [address] [place] [phone] * (ABNORMAL) Comprehensive Metabolic Panel (09/27/2022 2:11 PM EST) Sodium 141 135 - 145 mmol/L [facility] Potassium 4.3 3.3 - 5.1 mmol/L [facility] Chloride 104 96 - 108 mmol/L [facility] Carbon Dioxide 30(H) 22 - 29 mmol/L [facility] Anion Gap 11(L) 12 - 20 [facility] Urea Nitrogen (BUN) 13 9 - 16 mg/dL [facility] Creatinine, Serum 0.73 0.5 - 1.4 mg/dL [facility] Creatinine Clr Calc Pharmacy 73.6 [facility] Comment:Provided height and weight: 157.48 cm,70.76 kg.eGFR (calculated from the MDRD study equation) and eCrCl(calculated from the Cockcroft-Gault equation) are based ondifferent parameters and may not yield comparable results.If eCrCl result is absurd, please check patient'sheight/weight. Estimated Glomerular Filt Rate >60 [facility] Comment:NOTE: For -Am erican individuals, multiply the result by 1.210.Chronic Kidney Disease: Estimated GFR < 60 mL/min/1.77k5Fnakpn Kidney Disease: Estimated GFR < 15 mL/min/1.73m2 Glucose 90 60 - 115 mg/dL [facility] Calcium 8.8 8.4 - 10.2 mg/dL [facility] Bilirubin, Total 0.4 0.0 - 1.0 mg/dL [facility] Aspartate Amino Transferase 25 5 - 31 U/L [facility] Alanine Aminotransferase 20 0 - 31 U/L [facility] Total Protein 6.7 6.5 - 8.0 g/dL [facility] Albumin Level 4.1 3.5 - 5.0 g/dL [facility] Alkaline Phosphatase 71 39 - 117 U/L [facility] 09/27/2022 2:11 PM EST 09/27/2022 2:14 PM EST us [facility] External Provider LAB BLO OD ORDERABLES Final Result [facility] [address] [place] [phone] * (ABNORMAL) CBC auto differential (09/27/2022 2:11 PM EST) White Blood Count 7.5 4.8 - 10.8 X10*3/uL [facility] Red Blood Count 4.42 4.20 - 5.50 X10*6/uL [facility] Hemoglobin 12.4 12.0 - 16.0 g/dl [facility] Hematocrit 36.9(L) 37.0 - 47.0 % [facility] Mean Corpuscular Volume 83.5 80.0 - 98.0 fL [facility] Mean Corpuscular Hemoglobin 28.1 27.0 - 33.0 pg [facility] Mean Corpuscular HGB Conc 33.6 31.0 - 35.0 g/dl [facility] Red Cell Distribution Width 12.5 11.0 - 16.0 % [facility] Platelet Count 139(L) 160 - 400 X10*3/uL [facility] Mean Platelet Volume 12.0 9.4 - 12.3 fL [facility] Neutrophils Percent Auto 54.6 45 - 73 % [facility] Imm Gran Pct Auto 0.4 0.0 - 0.4 % [facility] Lymphocytes Percent Auto 28.7 20 - 40 % [facility] Monocytes Percent Auto 8.3 2 - 11 % [facility] Eosinophils Percent Auto 7.3(H) 0 - 4 % [facility] Basophils Percent Auto 0.7 0 - 2 % [facility] NRBC Pct Auto 0.0 0.0 - 0.2 /100WBC [facility] Neutrophils Absolute Auto 4.1 2.0 - 8.3 x10*3/uL [facility] Imm Gran Abs Auto 0.03 0.00 - 0.03 X10*3/uL [facility] Lymphocytes Absolute Auto 2.2 1.2 - 4.9 X10*3/uL [facility] Monocytes Absolute Auto 0.6 0.1 - 1.2 X10*3/uL [facility] Eosinophils Absolute Auto 0.6(H) 0.0 - 0.4 X10*3/uL [facility] Basophils Absolute Auto 0.1 0.0 - 0.2 X10*3/uL [facility] NRBC Abs Auto 0.000 0.0 - 0.012 X10*3/uL [facility] 09/27/2022 2:11 PM EST 09/27/2022 2:14 PM EST us [facility] External Provider LAB BLO OD ORDERABLES Final Result [facility] [address] [place] [phone] documented in this encounter Visit Diagnoses Not on filedocumented in this encounter Care Teams Welfare Director Relationship Specialty Start Date End Date Gordon Velez MD [address] [place] [phone] PCP - General Internal Medicine 11/30/19 documented as of this encounter
--- OUTSIDE RECORDS SUMMARY | 2025-04-26 17:02 | XMS_ITS | Encounter Summary ---
Author Organization [employer] Address [address] [facility] 7 [place] [address] Care Team Providers Care Ict Quality Assurance Engineer Name Role Phone Gordon Velez MD Primary Care Prov ider Reason for Visit * Reason Onset Date Comments PT1 02/04/2025 Encounter Details Date Type Department Care Team ([facility] Contact Info) Description 02/04/2025 Telephone [facility] MED & PEDS [address] [place], [place] [phone] Gordon Velez MD [address] [place] [address] PT1 Social History Tobacco Use Types Packs/Day [...] encounter Miscellaneous Notes * Telephone Encounter - Wayne Greco - 02/04/2025 11:34 AM EDT Patient calling requesting PT1 Home Address verified: Y/N: Yes Provider name or facility name: [facility] Escort needed: Y/N: No Do you have a wheelchair: Y/N: No Visits: (2x month) documented in this encounter Plan of Treatment Upcoming Encounters Date Type Department Care Team ([facility] st Contact Info) Description 05/03/2025 1:15 PM EDT Office Visit [facility] MED & PEDS [address] [place] [address] Homar Shields MD [address] [place] [phone] 05/10/2025 1:00 PM EDT Office Visit [facility] MED & PEDS [address] [place] [address] Homar Shields MD [address] [place] [phone] 06/08/2025 1:30 PM EST Office Visit [facility] MED & PEDS [address] [place] [address] Gordon Velez MD [address] [place] [address] documented as of this encounter Visit Diagnoses Not on filedocumented in this encounter Additional Health Concerns Assessment Noted Time PHQ-9 Depression Total Score: 5 10/17/19 25 10:16 AM EDT documented as of this encounter Care Teams Ict Quality Assurance Engineer Relationship Specialty Start Date End Date Gordon Velez MD [address] [place] [address] PCP - General Internal Medicine 11/30/19 documented as of this encounter
--- OUTSIDE RECORDS SUMMARY | 2025-04-26 17:02 | XMS_ITS | Encounter Summary ---
Author Organization [employer] Address [address] [facility] 7 [place] [address] Care Team Providers Care Long Distance Billing Operator Name Role Phone Gordon Velez MD Primary Care Prov ider Reason for Visit * Reason Onset Date Comments Med Refill 12/08/2024 Encounter Details Date Type Department Care Team (Late st Contact Info) Description 12/08/2024 Telephone [facility] [address] [place] [address] Gordon Velez MD [address] [place], [place] [phone] Med Refill Social History Tobacco Use Types [...] 100 MG tablet To be sent to: [facility] [place], [place] - [address] [place] [address] documented in this encounter Plan of Treatment Upcoming Encounters Date Type Department Care Team ([facility] st Contact Info) Description 05/03/2025 1:15 PM EDT Office Visit [facility] MED & PEDS [address] [place] [address] Homar Shields MD [address] [place] [phone] 05/10/2025 1:00 PM EDT Office Visit [facility] MED & PEDS [address] [place] [address] Homar Shields MD [address] [place] [address] 06/08/2025 1:30 PM EST Office Visit [facility] MED [facility] PED[facility] [address] [place] [address] Gordon Velez MD [address] [place] [address] documented as of this encounter Visit Diagnoses Not on filedocumented in this encounter Additional Health Concerns Assessment Noted Time PHQ-9 Depression Total Score: 5 10/17/19 25 10:16 AM EDT documented as of this encounter Care Teams Long Distance Billing Operator Relationship Specialty Start Date End Date Gordon Velez MD [address] [place] [address] PCP - General Internal Medicine 11/30/19 documented as of this encounter
--- OUTSIDE RECORDS SUMMARY | 2025-04-26 17:02 | XMS_ITS | Encounter Summary ---
Author Organization [employer] Address [address] [facility] 7 [place] [address] Care Team Providers Care Wedding Designer Name Role Phone Gordon Velez MD Primary Care Prov ider Reason for Visit * Reason Onset Date Comments Nurse Triage 01/28/2025 Encounter Details Date Type Department Care Team ([facility] st Contact Info) Description 01/28/2025 Telephone [facility] [address] [place] [address] Gordon Velez MD [address] [place] [address] Nurse Triage Social History Tobacco Use Types [...] encounter Miscellaneous Notes * Telephone Encounter - Wayen Greco - 01/28/2025 1:31 PM EDT Symptom: Stools - Blood Mixed In Outcome: Talk to a nurse or provider within 15 minutes Reason: Large amount of blood The caller accepted this outcome. Contact pt at [phone] documented in this encounter Plan of Treatment Upcoming Encounters Date Type Department Care Team ([facility] Contact Info) Description 05/03/2025 1:15 PM EDT Office Visit [facility] MED & PEDS [address] [place] [address] Homar Shields MD [address] [place] [phone] 05/10/2025 1:00 PM EDT Office Visit [facility] MED & PEDS [address] [place] [address] Homar Shields MD [address] [place] [phone] 06/08/2025 1:30 PM EST Office Visit [facility] MED & PEDS [address] [place] [address] Gordon Velez MD [address] [place] [address] documented as of this encounter Visit Diagnoses Not on filedocumented in this encounter Additional Health Concerns Assessment Noted Time PHQ-9 Depression Total Score: 5 10/17/19 25 10:16 AM EDT documented as of this encounter Care Teams Wedding Designer Relationship Specialty Start Date End Date Gordon Velez MD [address] [place] [address] PCP - General Internal Medicine 11/30/19 documented as of this encounter
--- OUTSIDE RECORDS SUMMARY | 2025-04-26 17:02 | XMS_ITS | Encounter Summary ---
Author Organization [employer] Address 75 [facility] 7 [place] [address] Care Team Providers Care Director Quality Assurance Name Role Phone Gordon Velez MD Primary Care Prov ider Reason for Visit * Reason Onset Date Comments Appointment Request 02/15/2023 Encounter Details Date Type Department Care Team ([facility] st Contact Info) Description 02/15/2023 Telephone [facility] MED & PEDS [address] [place], [place] [phone] Gordon Velez MD 505 [place] [address] Appointment Request Social History Tobacco Use Types [...] requesting to r/s appt from 02/15/23. Details: [facility] ED f/up 01/14- r/s Patient speaks pitcairn islander. documented in this encounter Plan of Treatment Upcoming Encounters Date Type Department Care Team (Late st Contact Info) Description 05/03/2025 1:15 PM EDT Office Visit [facility] MED & PEDS [address] [place] [address] Homar Shields MD 230 [place] [address] 05/10/2025 1:00 PM EDT Office Visit [facility] MED & PEDS [address] [place] [address] Homar Shields MD 230 [place] [address] 06/08/2025 1:30 PM EST Office Visit [facility] MED & PEDS [address] [place] [address] Gordon Velez MD 505 [place] [address] documented as of this encounter Visit Diagnoses Not on filedocumented in this encounter Care Teams Director Quality Assurance Relationship Specialty Start Date End Date Gordon Velez MD 505 [place] [address] PCP - General Internal Medicine 11/30/19 documented as of this encounter
--- OUTSIDE RECORDS SUMMARY | 2025-04-26 17:02 | XMS_ITS | Encounter Summary ---
Author Organization [employer] Address 75 [facility] 7t [place] [address] Care Team Providers Care Stagecraft Professor Name Role Phone Gordon Velez MD Primary Care Prov ider Reason for Visit * Reason Onset Date Comments Appointment Request 07/10/2023 Encounter Details Date Type Department Care Team ([facility] st Contact Info) Description 07/10/2023 Telephone [facility] MEDICINE 230 [place] [address] Gordon Velez MD 505 [place], [place] [phone] Appointment Request Social History Tobacco Use Types [...] encounter Miscellaneous Notes * Telephone Encounter - Cralos Katz - 07/10/2023 11:34 AM EST Tc from [facility] documented in this encounter Plan of Treatment Upcoming Encounters Date Type Department Care Team (Late st Contact Info) Description 05/03/2025 1:15 PM EDT Office Visit [facility] MED & PEDS [address] [place] [address] Homar Shields MD [address] [place] [address] 05/10/2025 1:00 PM EDT Office Visit [facility] MED & PEDS 505 [place] [address] Homar Shields MD [address] [place] [address] 06/08/2025 1:30 PM EST Office Visit [facility] MED & PEDS 505 [place] [address] Gordon Velez MD 505 [place] [address] documented as of this encounter Visit Diagnoses Not on filedocumented in this encounter Care Teams Stagecraft Professor Relationship Specialty Start Date End Date Gordon Velez MD 505 [place] [address] PCP - General Internal Medicine 11/30/19 documented as of this encounter
--- OUTSIDE RECORDS SUMMARY | 2025-04-26 17:02 | XMS_ITS | Encounter Summary ---
Author Organization [employer] Address 75 [facility] 7t [place] [address] Care Team Providers Care Compressor House Operator Name Role Phone Gordon Velez MD Primary Care Prov ider Encounter Details Date Type Department Care Team (Late st Contact Info) Description 11/08/2023 Orders Only [facility] MEDICINE 230 [place] [address] ProviderMarito MD Social History Tobacco Use Types [...] [facility] MED & PEDS 505 [place] [address] Homar Shields MD 230 [place] [address] 05/10/2025 1:00 PM EDT Office Visit [facility] MED & PEDS 505 [place] [address] Homar Shields MD 230 [place] [address] 06/08/2025 1:30 PM EST Office Visit [facility] MED & PEDS 505 [place] [address] Gordon Velez MD 505 [place] [address] documented as of this encounter Procedures Procedure Name Priority Date/Time Associated Diagnosis Comments HM COLONOSCOPY Routine 11/24/2015 12:21 PM EDT documented in this encounter Results * Hm Colonoscopy (11/24/2015 12:21 PM EDT) Historical Provider HEALTH MAINTENANCE Final Result documented in this encounter Visit Diagnoses Not on filedocumented in this encounter Care Teams Compressor House Operator Relationship Specialty Start Date End Date Gordon Velez MD 505 [place] [address] PCP - General Internal Medicine 11/30/19 documented as of this encounter
--- OUTSIDE RECORDS SUMMARY | 2025-04-26 17:02 | XMS_ITS | Encounter Summary ---
Author Organization [employer] Address 75 [facility] 7t [place] [address] Care Team Providers Care Wool Dyer Name Role Phone Gordon Velez MD Primary Care Prov ider Reason for Visit * Reason Onset Date Comments New Med Request 01/24/2024 Encounter Details Date Type Department Care Team (Late st Contact Info) Description 01/24/[address] [facility] MEDICINE 230 [place] [address] Gordon Velez MD 505 [place], [place] [phone] New Med Request Social History Tobacco Use [...] Description 05/03/2025 1:15 PM EDT Office Visit [facility] MED & PEDS 505 [place] [address] Homar Shields MD 230 [place] [address] 05/10/2025 1:00 PM EDT Office Visit [facility] MED & PEDS 505 [place] [address] Homar Shields MD 230 [place] [address] 06/08/2025 1:30 PM EST Office Visit [facility] MED & PEDS 505 [place] [address] Gordon Velez MD [address] [place], [place] documented as of this encounter Visit Diagnoses Not on filedocumented in this encounter Care Teams Wool Dyer Relationship Specialty Start Date End Date Gordon Velez MD [address] [place] [address] PCP - General Internal Medicine 11/30/19 documented as of this encounter
--- OUTSIDE RECORDS SUMMARY | 2025-04-26 17:02 | XMS_ITS | Encounter Summary ---
Author Organization [employer] Address 75 [facility] 7 [place] [address] Care Team Providers Care Training Development Director Name Role Phone Gordon Velez MD Primary Care Prov ider Reason for Visit * Reason Onset Date Comments Appointment Request 02/04/2025 Encounter Details Date Type Department Care Team ([facility] Contact Info) Description 02/04/2025 Telephone [facility] CHC MED & PEDS [address] [place] [address] Gordon Velez MD 505 [place] [address] Appointment Request Social History Tobacco Use Types [...] Telephone Encounter - Wayne Greco - 02/04/2025 10:41 AM EDT Tc from pt requesting an apt with PCP through phone. Recall states that apt needs to be scheduled in mar. Contact pt at [phone] documented in this encounter Plan of Treatment Upcoming Encounters Date Type Department Care Team ([facility] st Contact Info) Description 05/03/2025 1:15 PM EDT Office Visit [facility] MED & PEDS [address] [place] [address] Homar Shields MD [address] [place] [address] 05/10/2025 1:00 PM EDT Office Visit [facility] MED & PEDS [address] [place] [address] Homar Shields MD [address] [place] [address] 06/08/2025 1:30 PM EST Office Visit [facility] MED & PEDS [address] [place] [address] Gordon Velez MD 505 [place] [address] documented as of this encounter Visit Diagnoses Not on filedocumented in this encounter Additional Health Concerns Assessment Noted Time PHQ-9 Depression Total Score: 5 10/17/19 25 10:16 AM EDT documented as of this encounter Care Teams Training Development Director Relationship Specialty Start Date End Date Gordon Velez MD 505 [place] [address] PCP - General Internal Medicine 11/30/19 documented as of this encounter
--- OUTSIDE RECORDS SUMMARY | 2025-04-26 17:02 | XMS_ITS | Encounter Summary ---
Author Organization [employer] Address 75 [facility] 7 [place] [address] Care Team Providers Care Toll Bridge Operator Name Role Phone Gordon Velez MD Primary Care Prov ider Reason for Visit * Reason Onset Date Comments Mamogram Order 05/15/2024 Encounter Details Date Type Department Care Team ([facility] st Contact Info) Description 05/15/2024 Telephone [facility] MEDICINE 230 [place] [address] Gordon Velez MD 505 [place], [place] [phone] Mamogram Order Social History Tobacco Use Types [...] any questions you can contact pt at [phone]. (Macedonian Speaker) documented in this encounter Plan of Treatment Upcoming Encounters Date Type Department Care Team ([facility] Contact Info) Description 05/03/2025 1:15 PM EDT Office Visit [facility] MED & PEDS 505 [place] [address] Homar Shields MD [address] [place] [address] 05/10/2025 1:00 PM EDT Office Visit [facility] MED & PEDS 505 [place] [address] Homar Shields MD [address] [place] [address] 06/08/2025 1:30 PM EST Office Visit [facility] MED & PEDS 505 [place] [address] Gordon Velez MD 505 [place] [address] documented as of this encounter Visit Diagnoses Not on filedocumented in this encounter Additional Health Concerns Assessment Noted Time PHQ-9 Depression Total Score: 18 024 1:56 PM EDT documented as of this encounter Care Teams Toll Bridge Operator Relationship Specialty Start Date End Date Fam Gordon Rose MD 505 [place] [address] PCP - General Internal Medicine 11/30/19 documented as of this encounter
--- OUTSIDE RECORDS SUMMARY | 2025-04-26 17:02 | XMS_ITS | Encounter Summary ---
Author Organization [employer] Address 75 [facility] 7 [place] [address] Care Team Providers Care Revising Clerk Name Role Phone Gordon Velez MD Primary Care Prov ider Reason for Visit * Reason Onset Date Comments Referral 09/10/2023 Encounter Details Date Type Department Care Team ([facility] Contact Info) Description 09/10/2023 Telephone [facility] CHC MED & PEDS [address] [place] [address] Gordon Velez MD 505 [place] [address] Referral Social History Tobacco Use Types Packs/Day [...] Pt states Mammo can be sent to [facility] women's center. Ordersent as requested. Pt then stated needing a referral to [facility] eye care for routine DM eye [...] requesting for eye referral flavia sent to [facility]. States she is not able to make an appointment due to office not having a referral. documented in this encounter Plan of Treatment Upcoming Encounters Date Type Department Care Team (Late st Contact Info) Description 05/03/2025 1:15 PM EDT Office Visit [facility] MED & PEDS [address] [place] [address] Homar Shields MD [address] [place] [address] [phone] 05/10/2025 1:00 PM EDT Office Visit [facility] MED & PEDS [address] [place] [address] Homar Shields MD [address] [place] [address] [phone] 06/08/2025 1:30 PM EST Office Visit [facility] CHC MED & PEDS [address] [place], [place] [phone] Gordon Velez MD 505 [place] [address] documented as of this encounter Visit Diagnoses Diagnosis Type 2 diabetes mellitus without complication, without long-term current use of insulin (HCC) documented in this encounter Care Teams Revising Clerk Relationship Specialty Start Date End Date Gordon Velez MD [address] [place] [address] PCP - General Internal Medicine 11/30/19 documented as of this encounter
--- OUTSIDE RECORDS SUMMARY | 2025-04-26 17:02 | XMS_ITS | Encounter Summary ---
Author Organization [employer] Address 75 [facility] 7t [place] [address] Care Team Providers Care Ear Pull Machine Operator Name Role Phone Gordon Velez MD Primary Care Prov ider Encounter Details Date Type Department Care Team ([facility] st Contact Info) Description 02/01/2025 Orders Only [facility] CHC MED & PEDS [address] [place], [place] [phone] Gordon Velez MD 505 [place], [place] [phone] Social History Tobacco Use Types Packs/Day Years [...] Upcoming Encounters Date Type Department Care Team ([facility] st Contact Info) Description 05/03/2025 1:15 PM EDT Office Visit [facility] MED & PEDS [address] [place] [address] Homar Shields MD [address] [place] [address] 05/10/2025 1:00 PM EDT Office Visit [facility] MED & PEDS [address] [place] [address] Homar Shields MD [address] [place] [address] 06/08/2025 1:30 PM EST Office Visit [facility] MED & PEDS [address] [place] [address] Gordon Velez MD 505 [place] [address] documented as of this encounter Visit Diagnoses Not on filedocumented in this encounter Additional Health Concerns Assessment Noted Time PHQ-9 Depression Total Score: 5 10/17/19 25 10:16 AM EDT documented as of this encounter Care Teams Ear Pull Machine Operator Relationship Specialty Start Date End Date Gordon Velez MD [address] [place] [address] PCP - General Internal Medicine 11/30/19 documented as of this encounter
--- OUTSIDE RECORDS SUMMARY | 2025-04-26 17:02 | XMS_ITS | Encounter Summary ---
Author Organization [employer] Address 75 [facility] 7 [place] [address] Care Team Providers Care Theatrical Variety Agent Name Role Phone Gordon Velez MD Primary Care Prov ider Encounter Details Date Type Department Care Team (Late Contact Info) Description 11/21/2022 Orders Only [facility] CHC MED & PEDS 505 [place], [place] [phone] Gordon Velez MD 505 [place], [place] [phone] Social History Tobacco Use Types Packs/Day Years [...] Description 05/03/2025 1:15 PM EDT Office Visit [facility] CHC MED & PEDS 505 [place], [place] [phone] Homar Shields MD 230 [place] [address] 05/10/2025 1:00 PM EDT Office Visit [facility] MED & PEDS 505 [place] [address] Homar Shields MD 230 [place] [address] 06/08/2025 1:30 PM EST Office Visit [facility] MED & PEDS 505 [place] [address] Gordon Velez MD 505 [place] [address] documented as of this encounter Visit Diagnoses Not on filedocumented in this encounter Care Teams Theatrical Variety Agent Relationship Specialty Start Date End Date Gordon Velez MD 505 [place] [address] PCP - General Internal Medicine 11/30/19 documented as of this encounter
--- OUTSIDE RECORDS SUMMARY | 2025-04-26 17:02 | XMS_ITS | Encounter Summary ---
Author Organization [employer] Address 75 [facility] 7t [place] [address] Care Team Providers Care Senior Asic Engineer Name Role Phone Gordon Velez MD Primary Care Prov ider Reason for Visit * Reason Comments Med Refill Encounter Details Date Type Department Care Team (Late st Contact Info) Description 02/07/2025 Refill [facility] MEDICINE 230 [place] [address] Gordon Velez MD 505 [place], [place] [phone] Severe persistent asthma without complication Social History [...] 05/03/2025 1:15 PM EDT Office Visit [facility] MED & PEDS [address] [place] [address] Homar Shields MD [address] [place] [address] 05/10/2025 1:00 PM EDT Office [facility] MED & PEDS [address] [place] [address] Homar Shields MD [address] [place] [address] 06/08/2025 1:30 PM EST Office [facility] MED & PEDS [address] [place] [address] Gordon Velez MD 505 [place] [address] documented as of this encounter Visit Diagnoses Diagnosis Severe persistent asthma without complication (HCC) documented in this encounter Additional Health Concerns Assessment Noted Time PHQ-9 Depression Total Score: 5 10/17/19 25 10:16 AM EDT documented as of this encounter Care Teams Senior Asic Engineer Relationship Specialty Start Date End Date Gordon Velez, MD [address] [place] [address] PCP - General Internal Medicine 11/30/19 documented as of this encounter
--- OUTSIDE RECORDS SUMMARY | 2025-04-26 17:02 | XMS_ITS | Encounter Summary ---
Author Organization [employer] Address [address] [address] Care Team Providers Care Medical Records Secretary Name Role Phone Gordon Velez MD Primary Care Prov ider Reason for Visit * Reason Onset Date Comments PT1 02/06/2023 Encounter Details Date Type Department Care Team ([facility] Contact Info) Description 02/06/2023 Telephone [facility] CHC MED & PEDS 505 [place] [address] Gordon Velez MD 505 [place] [address] PT1 Social History Tobacco Use Types Packs/Day [...] requesting PT1 Date: 02/21/23 Time: 12:15 Address: [address] [place] [address] Specialty: endocrinology Assistant Clinical Nurse Manager: yes Wheelchair: no, cane documented in this encounter Plan of Treatment Upcoming Encounters Date Type Department Care Team (Late st Contact Info) Description 05/03/2025 1:15 PM EDT Office Visit [facility] MED & PEDS [address] [place] [address] Homar Shields MD 230 [place] [address] 05/10/2025 1:00 PM EDT Office Visit [facility] MED & PEDS [address] [place] [address] Homar Shields MD 230 [place] [address] 06/08/2025 1:30 PM EST Office Visit [facility] MED & PEDS [address] [place] [address] Gordon Velez MD 505 [place] [address] documented as of this encounter Visit Diagnoses Not on filedocumented in this encounter Care Teams Medical Records Secretary Relationship Specialty Start Date End Date Gordon Velez MD [address] [place] [address] PCP - General Internal Medicine 11/30/19 documented as of this encounter
--- OUTSIDE RECORDS SUMMARY | 2025-04-26 17:02 | XMS_ITS | Encounter Summary ---
Author Organization [employer] Address 75 [facility] 7 [place] [address] Care Team Providers Care Corporate Sales Trainer Name Role Phone Gordon Velez MD Primary Care Prov ider Reason for Visit * Reason Onset Date Comments Error 12/10/2024 Encounter Details Date Type Department Care Team ([facility] st Contact Info) Description 12/10/2024 Telephone [facility] MEDICINE 230 [place] [address] Gordon Velez MD 505 [place], [place] [phone] Error Social History Tobacco Use Types Packs/Day Years [...] 1:15 PM EDT Office Visit [facility] MED & PEDS [address] [place] [address] Homar Shields MD [address] [place] [address] 05/10/2025 1:00 PM EDT Office Visit [facility] MED & PEDS [address] [place] [address] Homar Shields MD [address] [place] [address] 06/08/2025 1:30 PM EST Office Visit [facility] MED & PEDS [address] [place] [address] Gordon Velez MD [address] [place] [address] documented as of this encounter Visit Diagnoses Not on filedocumented in this encounter Additional Health Concerns Assessment Noted Time PHQ-9 Depression Total Score: 5 10/17/19 25 10:16 AM EDT documented as of this encounter Care Teams Corporate Sales Trainer Relationship Specialty Start Date End Date Gordon Velez MD [address] [place] [address] PCP - General Internal Medicine 11/30/19 documented as of this encounter
--- OUTSIDE RECORDS SUMMARY | 2025-04-26 17:02 | XMS_ITS | Encounter Summary ---
Author Organization [employer] Address 75 [facility] 7 [place] [address] Care Team Providers Care Coater Name Role Phone Gordon Velez MD Primary Care Prov ider Reason for Visit * Reason Comments Med Refill Encounter Details Date Type Department Care Team ([facility] st Contact Info) Description 11/15/2024 Refill [facility] CHC MED & PEDS [address] [place], [place] [phone] Gordon Velez MD [address] [place] [address] Severe persistent asthma without complication Social History [...] 1:15 PM EDT Office Visit [facility] MED & PEDS [address] [place] [address] Homar Shields MD [address] [place] [address] 05/10/2025 1:00 PM EDT Office Visit [facility] MED & PEDS [address] [place] [address] Homar Shields MD [address] [place] [address] 06/08/2025 1:30 PM EST Office Visit [facility] MED & PEDS [address] [place] [address] Gordon Velez MD 505 [place] [address] documented as of this encounter Visit Diagnoses Diagnosis Severe persistent asthma without complication (HCC) documented in this encounter Additional Health Concerns Assessment Noted Time PHQ-9 Depression Total Score: 5 10/17/19 25 10:16 AM EDT documented as of this encounter Care Teams Coater Relationship Specialty Start Date End Date Gordon Velez MD [address] [place] [phone] PCP - General Internal Medicine 11/30/19 documented as of this encounter
--- OUTSIDE RECORDS SUMMARY | 2025-04-26 17:02 | XMS_ITS | Encounter Summary ---
Author Organization [employer] Address 75 [facility] 7t [place] [address] Care Team Providers Care Emergency Communications Dispatcher Name Role Phone Gordon Velez MD Primary Care Prov ider Reason for Visit * Reason Onset Date Comments Appointment Request 09/16/2023 Encounter Details Date Type Department Care Team ([facility] st Contact Info) Description 09/16/2023 Telephone [facility] MEDICINE 230 [place] [address] Gordon Velez MD 505 [place], [place] [phone] Appointment Request Social History Tobacco Use Types [...] t he electric, gas, oil or water [employer] threatened to shut off services in your [...] mammogram. Please contact pt if any questions: [phone] documented in this encounter Plan of Treatment Upcoming Encounters Date Type Department Care Team ([facility] st Contact Info) Description 05/03/2025 1:15 PM EDT Office Visit [facility] MED & PEDS [address] [place] [address] Homar Shields MD [address] [place] [address] 05/10/2025 1:00 PM EDT Office Visit [facility] MED & PEDS [address] [place] [address] Homar Shields MD [address] [place] [address] 06/08/2025 1:30 PM EST Office Visit [facility] MED & PEDS [address] [place] [address] Gordon Velez MD 505 [place] [address] documented as of this encounter Visit Diagnoses Not on filedocumented in this encounter Care Teams Emergency Communications Dispatcher Relationship Specialty Start Date End Date Gordon Velez MD 505 [place] [address] PCP - General Internal Medicine 11/30/19 documented as of this encounter
--- OUTSIDE RECORDS SUMMARY | 2025-04-26 17:02 | XMS_ITS | Encounter Summary ---
Author Organization [employer] Address [address] [facility] 7[address] [place] [address] Care Team Providers Care Irrigator Valve Pipe Name Role Phone Gordon Velez MD Primary Care Prov ider Reason for Visit * Reason Onset Date Comments Med Refill 02/15/2025 Encounter Details Date Type Department Care Team (Late st Contact Info) Description 02/15/2025 Refill [facility] [address] [place], [place] [phone] Helen Jeffery RN Social History Tobacco Use Types Packs/Day Years [...] Upcoming Encounters Date Type Department Care Team ([facility] st Contact Info) Description 05/03/2025 1:15 PM EDT Office Visit [facility] & PEDS [address] [place] [address] Homar Shields MD [address] [place] [phone] 05/10/2025 1:00 PM EDT Office Visit [facility] [address] [place] [address] Homar Shields MD [address] [place] [phone] 06/08/2025 1:30 PM EST Office Visit [facility] [address] [place] [phone] Gordon Velez MD [address] [place] [address] documented as of this encounter Visit Diagnoses Not on filedocumented in this encounter Additional Health Concerns Assessment Noted Time PHQ-9 Depression Total Score: 5 10/17/19 25 10:16 AM EDT documented as of this encounter Care Teams Irrigator Valve Pipe Relationship Specialty Start Date End Date Gordon Velez MD [address] [place] [address] PCP - General Internal Medicine 11/30/19 documented as of this encounter
--- OUTSIDE RECORDS SUMMARY | 2025-04-26 17:02 | XMS_ITS | Encounter Summary ---
Author Organization [employer] Address [address] [facility] [address] [place] [address] Care Team Providers Care Terrazzo Worker Helper Name Role Phone Gordon Velez MD Primary Care Prov ider Encounter Details Date Type Department Care Team (Late Contact Info) Description 02/11/2023 Orders Only [facility] [address] [place] [address] [phone] Shannan Greene LPN Social History Tobacco Use [...] Department Care Team (Late Contact Info) Description 05/03/2025 1:15 PM EDT Office Visit [facility] [address] [place], [place] [phone] Homar Shields MD [address] [place] [address] [phone] 05/10/2025 1:00 PM EDT Office Visit [facility]ED[facility] [address] [place], [place] [phone] Homar Shields MD [address] [place] [phone] 06/08/2025 1:30 PM EST Office Visit [facility] [address] [place] [address] Gordon Velez MD [address] [place] [address] documented as of this encounter Visit Diagnoses Not on filedocumented in this encounter Care Teams Terrazzo Worker Helper Relationship Specialty Start Date End Date Gordon Velez MD [address] [place] [address] PCP - General Internal Medicine 11/30/19 documented as of this encounter
--- OUTSIDE RECORDS SUMMARY | 2025-04-26 17:02 | XMS_ITS | Clinical Summary ---
Author Organization [facility] Address [address] [place] [address] Care Team Providers Care Electrophysiologist Name Role Phone Verna Michael Mcclain Primary Care Provider + [phone] Allergies No known active allergies Medications [id number] [...] Health Maintenance Due Date Last Done Comments Cologuard 1959 Colon Cancer Screening 1959 Colonoscopy 1959 FOBT / Fit Test 1959 HIV Screening 1959 Sigmoidoscopy 1959 Pneumococcal Vaccine: 50+ Years (1 of 2 - PCV) 10/11/1978 CT Lung Cancer Screening (Baseline) 10/11/2009 Osteoporosis Screening 10/11/2009 Zoster Vaccines (1 of 2) 10/11/2009 Alcohol/Substance Use Screening 07/22/2024 Health Care Proxy Review 07/22/2024 COVID-19 Vaccine (1 - 2023-2 5 season) 2025 Influenza Vaccine (#1) 2025 8, 05/31/2016 DTaP,Tdap,and Td Vaccines (3 - Td or Tdap) 02/12/2029 02/12/2019, 09/04/2014, 09/04/2014 RSV Vaccine (60+ years old a nd patients) (1 - 1-dose 75+ series) 10/11/2034 Hepatitis B Vaccines Aged Out No long er eligible based on patient's age to complete this topic [place] [employer] [id number] Care Teams Electrophysiologist Relationship Specialty Start Date End Date Michael Gillespie: [phone] [address] [place] [phone] PCP - General Internal Medicine 11/24/20
--- OUTSIDE RECORDS SUMMARY | 2025-04-26 17:02 | XMS_ITS | Encounter Summary ---
Author Organization [employer] Address [address] [facility] [address] [place] [address] Care Team Providers Care Cofferdam Construction Supervisor Name Role Phone Gordon Velez MD Primary Care Prov ider Encounter Details Date Type Department Care Team (Late Contact Info) Description 07/18/2022 Telephone [facility] MED & PEDS [address] [place], [place] [phone] Gordon Velez MD [address] [place], [place] [phone] Social History Tobacco Use Types Packs/Day Years [...] [facility] [address] [place], [place] [phone] Homar Shields MD [address] [place] [phone] 05/10/2025 1:00 PM EDT Office Visit [facility] MED & PEDS [address] [place] [address] Homar Shields MD [address] [place] [address] 06/08/2025 1:30 PM EST Office Visit [facility] MED & PEDS [address] [place] [address] Gordon Velez MD [address] [place] [address] documented as of this encounter Visit Diagnoses Not on filedocumented in this encounter Care Teams [employer] Supervisor Relationship Specialty Start Date End Date Gordon Velez MD [address] [place] [address] PCP - General Internal Medicine 11/30/19 documented as of this encounter
--- OUTSIDE RECORDS SUMMARY | 2025-04-26 17:02 | XMS_ITS | Encounter Summary ---
Author Organization [employer] Address [address] [facility] 7 [place] [address] Care Team Providers Care Impregnator Helper Name Role Phone Gordon Velez MD Primary Care Prov ider Reason for Visit * Reason Onset Date Comments Med Refill 06/28/2023 Encounter Details Date Type Department Care Team ([facility] st Contact Info) Description 06/28/2023 Telephone [facility] [address] [place] [address] Gordon Velez MD [address] [place] [address] Med Refill Social History Tobacco Use Types [...] Medication is currently inactive Please sent to [facility] - [address] documented in this encounter Plan of Treatment Upcoming Encounters Date Type Department Care Team ([facility] st Contact Info) Description 05/03/2025 1:15 PM EDT Office Visit [facility] [address] [place] [address] Homar Shields MD [address] [place] [phone] 05/10/2025 1:00 PM EDT Office Visit [facility] [address] [place] [address] Homar Shields MD [address] [place] [phone] 06/08/2025 1:30 PM EST Office Visit [facility] [address] [place] [address] Gordon Velez MD [address] [place] [address] documented as of this encounter Visit Diagnoses Not on filedocumented in this encounter Care Teams Impregnator Helper Relationship Specialty Start Date End Date Gordon Velez MD [address] [place] [address] PCP - General Internal Medicine 11/30/19 documented as of this encounter
--- OUTSIDE RECORDS SUMMARY | 2025-04-26 17:02 | XMS_ITS | Clinical Summary ---
Author Organization [employer] Address [address] [place] [address] Care Team Providers Care International Marketing Executive Name Role Phone Gordon Velez MD Primary [...] DAILY 15 mL 11 01/13/20 24 Active polyvinyl alcohol (Liquifilm Tears) 1.4 % ophthalmic solution INSTILL ONE DROP IN THE AFFECTED EYE(S) THREE TIMES DAILY 02/24/20 24 Active Blood Glucose Monitoring Suppl (FreeStyle Lite) w/Device kit 1 kit 4 times daily. 1 kit 06/23/20 24 2024 Active Nebulizers [facility] [place] nebulizer as instructed 1 each [...] mg by mouth 2 times daily. Active dextran 70-hypromellose (GenTeal Tears) 0.1-0.3 % ophthalmic solution apply 0.1-0.3 Drops to the eye 3 times daily. Active clotrimazole (Lotrimin) 1 % cream apply topically to affected area(s) twice daily 07/06/20 Active clonazePAM (KlonoPIN) 1 MG tablet Take 1 mg by mouth 2 times daily as needed. Active Camphor-Menthol- Methyl Collin (Medicated Pain Relieving) 1.2-5.7-6.3 % patch Place 1 patch on the skin if needed each day (Pain). 30 patch 3 09/18/19 Active lidocaine (Lidoderm) 5 % patch Apply 1 patch topically Once per day. Remove & discard patch within 12 hours or as directed by MD. 30 patch 3 09/24/19 25 Active TRUEplus Lancets 33G miscIndications: Type 2 diabetes mellitus without complication, without long-term current use of insulin (HCC) 1 each by Other route Once per day. 90 each 3 10/08/19 25 2025 Active lactulose (Chronulac) 10 GM/15ML solution TAKE 15 ML BY MOUTH ONCE DAILY FOR 15 DAYS 150 mL 10/17/19 25 Active mineral oil liquid Take 30 mL by mouth if needed each day for constipation. 180 mL 12 10/17/19 25 2025 Active nicotine (Nicoderm CQ) 21 MG/24HR patch Place 1 patch on the skin 1 (one) time each day at the same time for 15 days. 15 patch 01/06/20 25 Active nicotine polacrilex (Nicotine Mini) 2 MG lozenge 1 or 2 lozenges every 2 hours as needed instead of a cigarette. 100 lozenge 01/06/20 25 Active glucose blood test strip Monitor glucose 2 times a day 100 each 12 01/15/20 25 2025 Active Lancet Devices (Autolet) lancing device 1 each by Other route 2 times daily. 1 each 01/15/20 25 2025 Active Aspirin Adult Low Strength 81 MG EC tablet TAKE ONE TABLET EVERY DAY 90 tablet 3 01/28/20 25 Active Oyster Shell Calcium 500 MG tablet TAKE ONE TABLET TWICE DAILY 180 tablet 3 01/28/20 25 Active cholecalciferol (Vitamin D-3) 25 MCG tablet TAKE ONE TABLET EVERY DAY 90 tablet 3 01/28/20 25 Active atorvastatin (Lipitor) 40 MG tabletIndication s:Hyperlipidemia associated with type 2 diabetes mellitus (HCC) TAKE ONE TABLET EVERY DAY 90 tablet 3 01/28/20 25 Active loratadine (Claritin) 10 MG tabletIndication s:Seasonal allergies TAKE ONE TABLET EVERY DAY NEEDED ALLERGIES 90 tablet 3 01/28/20 25 Active Nutritional Supplements (Boost High Protein) liquid DRINK ONE BOTTLE TWICE DAILY 1 mL 11 01/28/20 25 Active Ketotifen Fumarate 0.035 % solutionIndicati ons:Redness of left eye INSTILL ONE DROP IN THE AFFECTED EYE(S) TWICE DAILY IN THE MORNING AND AT BEDTIME 5 mL 01/30/20 25 Active fluticasone (Flonase) 50 MCG/ACT nasal sprayIndications :Seasonal allergies INHALE ONE SPRAY IN EACH NOSTRIL TWICE DAILY 48 g 02/23/20 25 Active ipratropium (Atrovent) 17 MCG/ACT inhaler Inhale 2 puffs every 6 (six) hours. 12.9 g 3 02/26/20 25 Active famotidine (Pepcid) 20 MG tablet TAKE ONE TABLET BY MOUTH AT BEDTIME 90 tablet 3 03/08/20 25 Active Breo Ellipta 200-25 MCG/ACT aerosol powderIndication s:Moderate persistent asthma without complication INHALE 1 PUFF DAILY AT THE SAME TIME EACH DAY 60 each 1 03/16/20 25 Active glucose blood (FREESTYLE LITE) test stripIndications :Type 2 diabetes mellitus without complication, without long-term current use of insulin (HCC) USE TO TEST BLOOD SUGAR 2 TO 3 TIMES A DAY 100 each 3 03/20/20 25 Active Blood Glucose Monitoring Suppl (FreeStyle Lite) w/Device kit 1 each 4 times daily. 1 kit 03/20/20 25 Active Januvia 100 MG tabletIndication s:Type 2 diabetes mellitus without complications (HCC) TAKE ONE TABLET BY MOUTH ONCE DAILY 30 tablet 3 03/26/20 25 Active sennosides (Senokot) 8.6 MG tablet 1 or 2 tablets PO at bedtime prn constipation. 60 tablet 2 03/26/20 25 Active Blood Glucose Monitoring Suppl (ONE TOUCH ULTRA 2) w/Device kit 1 kit 4 times daily 1 kit 04/14/20 25 Active albuterol 108 (90 Base) MCG/ACT inhalerIndicatio ns:Severe persistent asthma without complication ([facility]) INHALE TWO PUFFS EVERY 6 HOURS NEEDED FOR WHEEZING 18 g 04/22/20 25 Active Buprenorphine HCl-Naloxone HCl (Suboxone) 8-2 MG SL filmIndications: Uncomplicated opioid dependence (CMS/HCC) ([facility]) Place 1 Film under the tongue 2 times daily for 7 days. 14 Film 04/26/20 25 2024 Active Lancets (OneTouch Delica Safety Lancing) misc 1 Lancet 2 times daily. 90 each 2 01/15/20 25 2024 buprenorphine-na loxone (Suboxone) 2-0.5 MG per sublingual filmIndications: Uncomplicated opioid dependence (CMS/HCC) ([facility]) Place 1 Film under the tongue 3 times daily for 14 days. Do not start before March 08, 2025. 42 Film 03/08/20 25 2024 Discontinued buprenorphine-na loxone (Suboxone) 4-1 MG per sublingual filmIndications: Uncomplicated opioid dependence (CMS/HCC) (HCC) Place 1 Film under the tongue Once per day for 7 days. (Dose changed) Do not start before March 29, 2025. 7 Film 03/29/20 25 2024 Discontinued albuterol 108 (90 Base) MCG/ACT inhalerIndicatio ns:Severe persistent asthma without complication (HCC) INHALE TWO PUFFS EVERY 6 HOURS NEEDED FOR WHEEZING 18 g 03/24/20 25 2024 Discontinued(R eorder (will not trigger notification to Pharmacy)) Buprenorphine HCl-Naloxone HCl (Suboxone) 8-2 MG SL filmIndications: Opioid type dependence, continuous (CMS/HCC) (HCC) Place 1 Film under the tongue Once per day for 7 days. 7 Film 04/05/20 25 2024 Discontinued(R eorder (will not trigger notification to Pharmacy)) Buprenorphine HCl-Naloxone HCl (Suboxone) 8-2 MG SL filmIndications: Uncomplicated opioid dependence (CMS/HCC) (HCC),Opioid type dependence, continuous (CMS/HCC) (HCC) Place 1 Film under the tongue Once per day for 7 days. 7 Film 04/12/20 25 2024 Discontinued(R eorder (will not trigger notification to Pharmacy)) Blood Glucose Monitoring Suppl (ONE TOUCH ULTRA 2) w/Device kit 2024 Discontinued(R eorder (will not trigger notification to Pharmacy)) Buprenorphine HCl-Naloxone HCl (Suboxone) 8-2 MG SL filmIndications: Uncomplicated opioid dependence (CMS/HCC) (HCC),Opioid type dependence, continuous (CMS/HCC) (HCC) Place 1 Film under the tongue Once per day for 7 days. Do not start before April 19, 2025. 7 Film 04/19/20 25 2024 Discontinued(R eorder (will not trigger notification to Pharmacy)) Buprenorphine HCl-Naloxone HCl (Suboxone) 8-2 MG SL filmIndications: Uncomplicated opioid dependence (CMS/HCC) (HCC) Place 1 Film under the tongue 2 times daily for 7 days. 14 Film 04/19/20 25 2024 Discontinued(R eorder (will not trigger notification to Pharmacy)) Active Problems Patient Care Coordination No te Formatting of this note migh t be different from the original. [id number] Piyush Cheney, TC-LVM Problem Noted Date Diagnosed [...] uptake on the left side, followed at [facility] and she is on evaluation for surgery [...] AM EDT): Patient was receiving tramadol from [facility], but recent screening test was positive for fentanyl and was taken off medication, I told her since she failed test I would not restart her either on that medication. Mixed simple and mucopurulent chronic bronchitis (CMS/HCC) 10/25/2022 Assessment & Plan (10/25/2022 10:16 AM [...] ablation therapy next week, Benzodiazepine dependence, continuous (CMS/HCC) 03/05/2018 Chronic back pain 03/05/2018 History of [...] Encounters Date Type Department Care Team Description 04/26/2025 1:15 PM EDT Office Visit [facility] [address] [place] [address] Homar Shields MD Opioid type dependence, continuous (CMS/HCC) (HCC) (Primary Dx) 04/26/2025 Orders Only [facility] [address] [place] [address] Homar Shields MD 04/26/2025 Travel 04/23/2025 Refill [facility] [address] [place] [address] Helen Jeffery, DENISHA Uncomplicated opioid dependence (CMS/HCC) (HCC) 04/21/2025 Refill [facility] [address] [place] [address] Gordon Velez MD Severe persistent asthma without complication (HCC) 04/19/2025 1:15 PM EDT Office Visit [facility] [address] [place] [address] Homar Shields MD Uncomplicated opioid dependence (CMS/HCC) (Primary Dx) 04/19/2025 Travel 04/14/2025 Refill [facility] [address] [place] [address] Helen Jeffery RN Uncomplicated opioid dependence (CMS/HCC); Opioid type dependence, continuous (CMS/HCC) 04/12/2025 1:30 PM EDT Office Visit [facility] [address] [place] [address] Homar Shields MD Uncomplicated opioid dependence (CMS/HCC) (Primary Dx); Opioid type dependence, continuous (CMS/HCC) 04/12/2025 Travel 04/09/2025 Refill [facility] [address] [place] [address] Gordon Velez MD 04/05/2025 1:00 PM EDT Office Visit [facility] [address] [place] [address] Homar Shields MD Opioid type dependence, continuous (CMS/HCC) (Primary Dx) 04/05/2025 Travel 03/31/2025 Telephone [facility] [address] [place] [address] Lakeisha Segura [place] 03/30/2025 Telephone [facility] [address] [place] [phone] Lakeisha Segura [place] 03/30/2025 Telephone [facility] [address] [place] [address] Gordon Velez MD Med Refill 03/26/2025 Telephone [facility] [address] [place] [address] Gordon Velez MD Durable Medical Equipment 03/26/2025 Telephone [facility] [address] [place] [address] Gordon Velez MD Nurse Triage 03/26/2025 Refill [facility] [address] [place] [address] Gordon Velez MD Type 2 diabetes mellitus without complications ([facility]) 03/23/2025 Refill [facility] [address] [place] [address] Gordon Velez MD Severe persistent asthma without complication 03/19/2025 Refill [facility] [address] [place] [address] Gordon Velez MD Type 2 diabetes mellitus without complication, without long-term current use of insulin ([facility]) 03/19/2025 Telephone [facility] [address] [place] [phone] Gordon Velez MD glucose monitor 03/17/2025 2:15 PM EDT Office Visit [facility] [address] [place] [address] Alice Billings, OD Corneal ulcer of left eye (Primary Dx) 03/17/2025 Travel 03/16/2025 Refill [facility] [address] [place] [address] Helen Jeffery, DENISHA Uncomplicated opioid dependence ([facility]) 03/16/2025 Telephone [facility] [address] [place] [address] Alice Billings, OD 03/15/2025 11:00 AM EDT Telemedicine [facility] [address] [place] [address] Homar Shields MD Uncomplicated opioid dependence ([facility]/HCC) (Primary Dx) 03/13/2025 Refill [facility] [address] [place] [address] Gordon Velez MD Moderate persistent asthma without complication 03/12/2025 Telephone [facility] [address] [place] [address] Helen Jeffery RN 03/12/2025 Telephone [facility] [address] [place] [address] Alicia Recinos [place] 03/11/2025 Telephone [facility] [address] [place] [address] Gordon Velez MD No Show 03/11/2025 Telephone [facility] [address] [place] [address] Gordon Velez MD 03/11/2025 Travel 03/10/2025 Telephone [facility] [address] [place] [address] Gordon Velez MD chart prep 03/08/2025 10:45 AM EDT Clinical Support [facility] [address] [place] [address] Helen Jeffery RN Uncomplicated opioid dependence ([facility]/HCC) (Primary Dx) 03/08/2025 Travel 03/05/2025 Refill [facility] [address] [place] [phone] Helen Jeffery RN Uncomplicated opioid dependence ([facility]/HCC) 03/03/2025 Telephone [facility] [address] [place] [address] Gordon Velez MD R/S APPT 03/02/2025 Refill [facility] [address] [place] [address] Gordon Velez MD 02/25/2025 Refill [facility] [address] [place] [address] Gordon Velez MD Severe persistent asthma without complication 02/22/2025 10:30 AM EDT Office Visit [facility] [address] [place] [address] Homar Shields MD Uncomplicated opioid dependence (CMS/HCC) (Primary Dx) 02/22/2025 Travel 02/19/2025 Refill [facility] [address] [place] [address] Gordon Velez MD Seasonal allergies 02/15/2025 11:15 AM EDT Office Visit [facility] [address] [place] [address] Homar Shields MD Opioid type dependence, continuous (CMS/HCC) (Primary Dx); Uncomplicated opioid dependence (CMS/HCC) 02/15/2025 Refill [facility] [address] [place] [address] Helen Jeffery RN 02/15/2025 Travel 02/12/2025 Orders Only [facility] External Provider, [facility] 02/11/2025 Refill [facility] [address] [place] [address] Gordon Velez MD Severe persistent asthma without complication 02/07/2025 Refill [facility] [address] [place] [address] Gordon Velez MD Severe persistent asthma without complication 02/04/2025 Patient Outreach [facility] [address] [place] [address] Gordon Velez MD Care Coordination ([facility] outreach for SDOH PT-1 and food needs-referral completed /) 02/04/2025 Telephone [facility] [address] [place] [address] Gordon Velez MD PT1 02/04/2025 Telephone [facility] [address] [place] [address] Gordon Velez MD Appointment Request 02/04/2025 Telephone [facility] [address] [place] [address] Gordon Velez MD Referral 02/01/2025 11:00 AM EDT Office Visit [facility] [address] [place] [address] Homar Shields MD Opioid type dependence, continuous (CMS/HCC) (Primary Dx) 02/01/2025 Orders Only [facility] [address] [place] [address] Gordon Velez MD 02/01/2025 Travel 01/29/2025 Refill [facility] [address] [place] [address] Michael Gillespie MD Redness of left eye 01/28/2025 Telephone [facility] [address] [place] [address] Gordon Velez MD Nurse Triage 01/27/2025 Refill [facility] [address] [place] [address] Gordon Velez MD 01/27/2025 Telephone [facility] [address] [place] [address] Gordon Velez MD Appointment Request 01/27/2025 Telephone [facility] [address] [place] [address] Gordon Velez MD Plate order 01/27/2025 Telephone [facility] [address] [place] [address] Gordon Velez MD Nurse Triage 01/26/2025 Refill [facility] [address] [place] [address] Gordon Velez MD Hyperlipidemia associated with type 2 diabetes mellitus ([facility]/HCC); Seasonal allergies 01/25/2025 1:15 PM EDT Office Visit [facility] [address] [place] [address] Homar Shields MD Uncomplicated opioid dependence (CMS/HCC) (Primary Dx) 01/25/2025 Refill [facility] [address] [place] [address] Homar Shields MD Uncomplicated opioid dependence ([facility]) 01/25/2025 Travel from Last 3 Months Immunizations Immunization Administration [...] Sign Reading Time Taken Comments Blood Pressure 126/73 12/22/2024 2:27 PM EDT Pulse 71 12/22/2024 2:27 PM EDT Temperature 36.7 C (98 F) 12/22/2024 2:27 PM EDT Respiratory Rate 20 12/22/2024 2:27 PM EDT Oxygen Saturation 94% 12/22/2024 2:27 PM EDT Inhaled Oxygen Concentration - - Weight 68.5 kg (151 lb) 12/22/2024 2:27 PM EDT Height 157.5 cm (5' 2 ) 12/22/2024 2:27 PM EDT Body Mass Index 27.62 12/22/2024 2:27 PM EDT Plan of Treatment Upcoming Encounters Date Type Department Care Team (Late st Contact Info) Description 05/03/2025 1:15 PM EDT Office Visit [facility] [address] [place] [address] Homar Shields MD [address] [place] [address] [phone] 05/10/2025 1:00 PM EDT Office Visit [facility] [address] [place] [address] Homar Shields MD [address] [place] [address] 06/08/2025 1:30 PM EST Office Visit [facility] [address] [place] [address] Gordon Velez MD [address] [place] [address] Health Maintenance Due Date Last Done Comments CT Colonography 1959 FIT DNA/Cologuard 1960 FIT 1960 FOBT 1960 Sigmoidoscopy 1960 Derm Melanoma Skin Check 04/13/1960 Diabetes: Foot Exam 10/11/1969 Alcohol/Substance Use Screening 1971 Pneumococcal Vaccine: 50+ Years (1 of 2 - PCV) 10/11/1978 Zoster Vaccines (1 of 2) 10/11/2009 RSV Patients and Patients Aged 60 years or older (1 - Risk 60-74 years 1-dose series) 2019 Colonoscopy 11/23/2020 11/24/2015 Colorectal Cancer Screening 11/23/2020 Diabetes: Urine Protein Screening 05/31/2021 05/31/2020 COVID-19 Vaccine ( season) 2025 06/23/2021, 10/19/2020, 09/21/2020 Influenza Vaccine (#1) 2025 , 06/10/2018, 08/29/2017, Additional history exists SDOH Screening 03/30/2025 03/30/2024 Pap Smear 04/10/2025 04/10/2022 Diabetes: Hemoglobin A1C 06/23/2025 06 025, 08/07/2024, 05/13/2024, Additional history exists Mammogram 09/18/2025 09/19/2023, 02/19, 04/12/2021, Additional history exists Depression Screening 10/16/2025 10/16/2024, 10/17/19 25 Lipid Panel 12/10/2025 12/10/2024, 05/13/2024 Tobacco Screening 03/17/2026 03/17/2025 Eye Exam 03/17/2027 03/17/2025, 12/20, 12/25/2024, Additional history exists Cervical Cancer Screening 04/10/2027 HPV/Cotest 04/10/2027 04/10/2022, 03/31/2019 DTaP/Tdap/Td Vaccines (5 - Td or Tdap) 02/12/2029 02/12/2019, 09/04/2014, 09/04/2014, Additional history exists Hepatitis B Vaccines Completed 02/11/2009, 04/28/2008, 01/07/2008 Hepatitis C Screening Completed 05/13/2024 HIB Vaccines Aged Out No longer eligi [...] on patient's age to complete this topic Goals Goal Patient Goal Type Associated Problems Recent Progress Patient-Stated? 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 Procedure Name Priority Date/Time Associated Diagnosis Comments BUPRENORPHINE SCREEN,URINE Routine 04/26/2025 1:30 PM EDT POCT TONY-14 URINE DRUG SCREEN Routine 04/26/2025 1:27 PM EDT Opioid type dependence, continuous (CMS/HCC) (HCC) POCT TONY-14 URINE DRUG SCREEN Routine 04/26/2025 1:15 PM EDT Opioid type dependence, continuous (CMS/HCC) (HCC) POCT TONY-14 URINE DRUG SCREEN Routine 04/19/2025 1:05 PM EDT Uncomplicated opioid dependence (CMS/HCC) POCT TONY-14 URINE DRUG SCREEN Routine 04/12/2025 1:45 PM EDT Uncomplicated opioid dependence (CMS/HCC) POCT TONY-14 URINE DRUG SCREEN Routine 04/05/2025 1:07 PM EDT Opioid type dependence, continuous (CMS/HCC) POCT TONY-14 URINE DRUG SCREEN Routine 03/08/2025 10:44 AM EDT Uncomplicated opioid dependence (CMS/HCC) POCT TONY-14 URINE DRUG SCREEN Routine 02/15/2025 10:26 AM EDT Opioid type dependence, continuous (CMS/HCC) XR LUMBAR SPINE 2-3 VIEWS Routine 02/12/2025 10:09 AM EDT POCT TONY-14 URINE DRUG SCREEN Routine 02/01/2025 11:22 AM EDT Opioid type dependence, continuous (CMS/HCC) POCT TONY-14 URINE DRUG SCREEN Routine 01/25/2025 1:23 PM EDT Uncomplicated opioid dependence (CMS/HCC) POCT GLYCATED HEMOGLOBIN, TOTAL Routine 12/22/2024 3:22 PM EDT Type 2 diabetes mellitus without complication, without long-term current use of insulin (CMS/HCC) LIPID PANEL, STANDARD Routine 12/10/2024 11:42 AM EDT Type 2 diabetes mellitus without complication, without [...] Relevant to Health Maintenance Results * (ABNORMAL) Buprenorphine Screen,Urine (04/26/2025 1:30 PM EDT) Buprenorphine Screen Positive( A) Not Detect ng/mL [facility] Comment:Buprenorphine cut-of f is 5 ng/mL.Positive results are unconfirmed and should not be used fornon-medical purposes. 04/26/2025 1:30 PM EDT 04/26/2025 2:47 PM EDT us Homar Shields MD LAB URINE ORDERABLES Final Resul t [facility] [address] [place] [phone] * (ABNORMAL) POCT TONY-14 Urine Drug Screen (04/26/2025 1:27 PM EDT) Only the most recent of9 resultswithin the time period is included. THC Negative Negative Cocaine Screen, Urine Negative [...] TEST ENTER/EDIT OR DERABLES Final Result * XR Lumbar Spine 2-3 Views (02/12/2025 10:09 AM EDT) Anatomical Region Laterality Modality Spine, L-spine Radiographic Cha ging 02/12/2025 10:0 9 AM EDT Narrative 02/12/2025 11:31 AM EDT [facility] [address] [place] [address] XRay Report Signed Patient: Jodi Saenz MR#: [id number] : 1960 Acct:[id number] Age/Sex: 64 / F ADM Date: 02/12/25 Loc: HO.HOSX Attending Dr: Yomaira Engel MD Ordering Physician: Yomaira Portillo Date of Service: 02/12/25 Procedure(s): XR lumbar spine 2-3V Accession Number(s): [id number] cc: Gordon Velez MD; Yomaira Portillo EXAMINATION: XR LUMBAR SPINE 2-3 VIEWS HISTORY: M54.9 - Dorsalgia, unspecified COMPARISON: Comparison is made with the prior examination dated 09/25/2021. FINDINGS: AP, lateral, and coned down views of the lumbar spine are submitted. Osseous mineralization is normal. Five nonrib-bearing lumbar vertebral bodies are identified, maintaining normal height and alignment without evidence of fracture or spondylolisthesis. There is mild degenerative disc disease with disc space narrowing and osteophyte formation. 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 There is calcification of the abdominal aorta. XR/XR lumbar spine 2-3V IMPRESSION: Degenerative disc disease of the lumbar spine as described. Electronically signed by: Jose Luis Staley MD 02/12/2025 11:28 AM EDT Dictated By: Jose Luis Staley MD Signed By: <Electronically signed by Jose Luis Staley MD in OV> 02/12/25 1128 DD/ 1009 TD/TT: 02/12/25 1120 Strip Polisher: Procedure Note Donotuseinterpreter, Image - 02/12/2025 [facility] [address] [place] [address] XRay Report Signed Patient: Jodi SaenzMR#: [id number] : 1960Acct:[id number] Age/Sex: 64 / FADM Date: 02/12/25 Loc: HO.HOSX Attending Dr: oYmaira Engel MD Ordering Physician: Yomaira Portillo Date of Service: 02/12/25 Procedure(s): XR lumbar spine 2-3V Accession Number(s): [id number] cc: Gordon Velez MD; Yomaira Portillo EXAMINATION: XR LUMBAR SPINE 2-3 VIEWS HISTORY: M54.9 - Dorsalgia, unspecified COMPARISON: Comparison is made with the prior examination dated 09/25/2021. FINDINGS: AP, lateral, and coned down views of the lumbar spine are submitted. Osseous mineralization is normal. Five nonrib-bearing lumbar vertebral bodies are identified, maintaining normal height and alignment without evidence of fracture or spondylolisthesis. There is mild degenerative disc disease with disc space narrowing and osteophyte formation. 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 There is calcification of the abdominal aorta. XR/XR lumbar spine 2-3V IMPRESSION: Degenerative disc disease of the lumbar spine as described. Electronically signed by: Jose Luis Staley MD 02/12/2025 11:28 AM EDT RP Dictated By: Jose Luis Staley MD Signed By: <Electronically signed by Jose Luis Staley MD in OV> 02/12/25 1128 DD/ 1009 TD/TT: 02/12/25 1120 Strip Polisher: [facility] External Provider IMG XR PROCEDURES Edited Result - Final * POCT HGB A1C (12/22/2024 3:22 PM EDT) Hemoglobin A1C 5.5 4.0 - 6.0 % QC Media Lot # [id number] Lot# Expiration Date Blood 12/22/2024 3:22 PM EDT Michael Gillespie MD POINT OF CARE TEST ENTER/ED IT ORDERABLES Final Result * (ABNORMAL) Lipid Panel, Standard (12/10/2024 11:42 AM EDT) Triglycerides 127 <150 mg/dL [facility] Comment:Desirable Triglyceri de: less than 150 mg/dLBorderline High Triglyceride 150-199 mg/dLHigh Triglyceride: 200-499 mg/dLVery High Triglyceride: greater than or equal to 5OO mg/dL Cholesterol 140 <200 mg/dL [facility] Comment:Desirable Cholestero l: less than 200 mg/dLBorderline High Cholesterol: 200-239 mg/dLHigh Cholesterol: greater than 239 mg/dL LDL Cholesterol Calculated 77 <100 mg/dL [facility] Comment:Desirable LDL: less than 100 mg/dLNear Optimal/Above Optimal LDL: 110- 129 mg/dLBorderline High LDL: 130-159 mg/dLHigh LDL: 160-189 mg/dLVery High LDL: greater than or equal to 190 mg/dL HDL Cholesterol 38(L) >40 mg/dL [facility] Comment:Desirable HDL: great er than 40 mg/dL Note: This HDL assay may give artificially low results in patients with liver disease. Blood Venous blood specimen / Unknown 12/10/2024 11:42 AM EDT 12/10/2024 11:42 AM EDT Gordon Rose MD LAB BLOOD ORDERABL ES Final Result Performing Organization Address [facility] Co de Phone Number [facility] [address] [place] [phone] * Hepatitis C Antibody with Reflex to HCV, RNA, Quantitative, Real-Time PCR (05/13/2024 2:24 PM EDT) Hepatitis C Antibody Nonreactive Nonreactive [facility] Comment:Antibodies to HCV no t detected; does not exclude early acuteHCV infection. Blood Venous blood specimen / Unknown 05/13/2024 2:24 PM EDT 05/13/2024 5:31 PM EDT Gordon Rose MD LAB BLOOD ORDERABL ES Final Result [facility] [address] [place] [address] [phone] * BI Mammogram Screening Tomosynthesis Left (09/19/2023 12:35 PM EST) Anatomical Region Laterality Modality Breast Left Mammography 09/19/2023 12:3 5 PM EST Narrative 09/23/2023 10:08 AM EST [facility] [address] [place] [address] Mammography Report Signed Patient: Jodi Saenz MR#: [id number] : 1960 Acct:[id number] Age/Sex: 62 / F ADM Date: 09/19/23 Loc: BLAZE Attending Dr: Sal Tabor CNM Ordering Physician: SAL TABOR CNM Results: 1 Negative Date of Service: 09/19/23 Follow Up: 1 Year From Orig inal Mammogram Procedure(s): MM tomosynthesis screening LT Accession Number(s): [id number] cc: SAL TABOR CNM EXAMINATION: MM SCREENING [...] Stewart MD Signed By: <Electronically signed by Darilng Stewart MD in OV> 09/23/23 1004 DD/ 1235 TD/TT: Strip Polisher: Procedure Note Donotuseinterpreter, Image - 09/23/2023 [facility] [address] [place] [address] [place] [address] Mammography Report Signed Patient: Jodi SaenzMR#: [id number] : 1960Acct:[id number] Age/Sex: 62 / FADM Date: 09/19/23 Loc: HO.MAMMO Attending Dr: Sal Tabor CNM Ordering Physician: SAL TABOResults: 1 Negative Date of Service: 09/19/23Follow Up: 1 Year From Orig inal Mammogram Procedure(s): MM tomosynthesis screening LT Accession Number(s): [id number] cc: SAL TABOR CNM EXAMINATION: MM SCREENING [...] in OV> 09/23/23 1004 DD/ 1235 TD/TT: Strip Polisher: Sal Tabor CNM IMG BI PROCEDURES Final R esult * THINPREP TIS PAP AND HPV mRNA E6/E7 WITH REFLEX TO HPV 16,18/45 (04/10/2022 11:22 AM EDT) Clinical Information: None given [facility] COMMENT SEE COMMENT [facility] Comment: EXPLANATORY NOTE: The Pap is a screening test for cervical cancer. It is not a diagnostic test and is subject to false negative and false positive results. It is most reliable when a satisfactory sample, regularly obtained, is submitted with relevant clinical findings and history, and when the Pap result is evaluated along with historic and current clinical information. COMMENT: This Pap test has been evaluated with computer assisted technology. [facility] Sas Programmer Remote: SEE COMMENT [facility] Comment: SL, CT(ASCP) CT screening location: [place] [address] HPV nRNA E6/E7 Not Detected Not Detected [facility] Comment: Methodology: Wood Heel Attacher-Mediated Amplification This assay detects E6/E7 viral messenger RNA (mRNA) from 14 high-risk HPV types (16,18,31,33,35,39,45,51,52,56,58,59,66,68). Cervical sources are required for HPV testing. If a vaginal source from a patient who has had a total hysterectomy with removal of cervix was submitted, please contact the testing laboratory for alternative testing options. For additional information, please refer to http://education.PlayFirst/faq/HFJ953q0 (This link if provided for information/ educational purposes only.) Interpretation/Res ult: SEE COMMENT [facility] Comment: Negative for intraepithelial lesion or malignancy. Atrophic pattern; predominantly parabasal cells LMP: NONE [facility] Prev. BX: NONE [facility] Prev. PAP: 03/2019 NIL/NEG HYST 2 CHERELLE 2011 [facility] Review Sas Programmer Remote: SEE COMMENT [facility] Comment: CONRAD, CT(ASCP) CT screening location: [address] [address] SOURCE: None given [facility] Statement Of Adequacy: SATISFACTORY FOR EVALUATION [facility] 04/10/2022 11:2 2 AM EDT us Sal Tabor CNM LAB PATHOLOGY ORDERABLES Final Result Performing Organization Address [facility]/ZIP Co de Phone Number [facility] [address] * MICROALBUMIN, RANDOM (05/31/2020 12:00 AM EST) Creatinine Urine 33.22 mg/dL [facility] Microalbum/Creati nine Ratio Ur TNP ug/mg cr [facility] Comment: Unable to calculate albumin/creatinine ratio due to low microalbumin or creatinine result. Microalbumin Urine <5.0 mg/L [facility] 05/31/2020 Historical Provider HISTORICAL/NON ORDERABLE LABS Final Result Performing Organization Address [facility] Co de Phone Number [facility] [address] * Hm Colonoscopy (11/24/2015 12:21 PM EDT) Historical Provider HEALTH MAINTENANCE Final Result from Last 3 Months or Most Recently Relevant to Health Maintenance Insurance [facility] Member Subscriber Plan / Payer (Ef fective 2024-Present) Name:Jodi Saenz Relation to Subscriber:Self Name:Jodi Saenz Payer ID:Not on file Group ID:Not on file Type:Medicaid Address: [facility] [id number] [place] [address] [place], [place] [address]O Care Teams International Marketing Executive Relationship Specialty Start Date End Date FamGordon Salas MD [address] [place] [address] PCP - General Internal Medicine 11/30/19
--- OUTSIDE RECORDS SUMMARY | 2025-04-26 17:02 | XMS_ITS | Encounter Summary ---
Author Organization [employer] Address 75 [facility] 7 [place] [address] Care Team Providers Care Embedded Linux Engineer Name Role Phone Gordon Velez MD Primary Care Prov ider Reason for Visit * Reason Comments Med Refill Encounter Details Date Type Department Care Team ([facility] st Contact Info) Description 12/08/2024 Refill [facility] MED & PEDS [address] [place], [place] [phone] Gordon Velez MD [address] [place] [address] Type 2 diabetes mellitus without complications (CMS/HCC) [...] Upcoming Encounters Date Type Department Care Team ([facility] st Contact Info) Description 05/03/2025 1:15 PM EDT Office Visit [facility] MED & PEDS [address] [place] [address] Homar Shields MD [address] [place] [address] 05/10/2025 1:00 PM EDT Office Visit [facility] [address] [place] [address] Homar Shields MD [address] [place] [address] 06/08/2025 1:30 PM EST Office Visit [facility] [address] [place] [address] Gordon Veelz MD [address] [place] [address] documented as of this encounter Visit Diagnoses Diagnosis Type 2 diabetes mellitus without complications (HCC) documented in this encounter Additional Health Concerns Assessment Noted Time PHQ-9 Depression Total Score: 5 10/17/19 10:16 AM EDT documented as of this encounter Care Teams Embedded Linux Engineer Relationship Specialty Start Date End Date Gordon Velez MD [address] [place] [phone] PCP - General Internal Medicine 11/30/19 documented as of this encounter
--- OUTSIDE RECORDS SUMMARY | 2025-04-26 17:02 | XMS_ITS | Encounter Summary ---
Author Organization [employer] Address 75 [facility] 7 [place] [address] Care Team Providers Care Yarn Skeins Examiner Name Role Phone Gordon Velez MD Primary Care Prov ider Reason for Visit * Reason Onset Date Comments Nurse Triage 01/08/2025 Encounter Details Date Type Department Care Team ([facility] st Contact Info) Description 01/08/2025 Telephone [facility] MEDICINE [address] [place] [address] Gordon Velez MD [address] [place], [place] [phone] Nurse Triage Social History Tobacco Use Types [...] Telephone Encounter - Alondra Lamas RN - 01/11/2025 9:45 AM EDT TC via historic interpreter. No answer. Unable to leave voicemail as mailbox is full. * Telephone Encounter - Lorrie Sheppard - 01/08/2025 3:42 PM EDT Tc from pt returning phone call. Tamazight * Telephone Encounter - Ofelia Grimes RN - 01/08/2025 2:38 PM EDT TC to pt to obtain blood sugars from home to assess glycemic control for provider information to determine refills. BLS translator interpreter utilized. No ringing as call went straight to voicemail, voicemail box is not set up and unable to leave a voicemail. * Telephone Encounter - Leatha Gama RN - 01/08/2025 12:09 PM EDT Called pt. Via [facility] translator interpreter [phone] Julio. Pt. States that she has been waiting for PCP to send her test strips to the pharmacy so that she can test her blood sugars 4 times daily. Pt states she called yesterday and they were not sent and pt. Is all out. Pt. Very upset and states that Pharmacy said it's too early because instructions state to check blood sugar once daily when she always checks her blood sugar 4 times daily due to fluctuating high blood sugars. Please have [facility] team nurse call pt. When script is sent. Message sent to PCP and CHC nurses in case they need to fill out a medical necessity form for 4 x daily check on blood sugars. * Telephone Encounter - Macario Colton - 01/08/2025 11:59 AM EDT Symptom: High Blood Sugar - Caller Reports Outcome: Schedule a same-day appointment or talk to a nurse or provider today Reason: Caller denied all higher acuity questions Please contact pt at [phone]. (Tamazight Speaker) documented in this encounter Plan of Treatment Upcoming Encounters Date Type Department Care Team ([facility] st Contact Info) Description 05/03/2025 1:15 PM EDT Office Visit [facility] & PEDS [address] [place] [address] Homar Shields MD [address] [place] [address] 05/10/2025 1:00 PM EDT Office Visit [facility] [address] [place] [address] Homar Shields MD [address] [place] [address] 06/08/2025 1:30 PM EST Office Visit [facility] [address] [place] [address] Gordon Velez MD [address] [place] [address] documented as of this encounter Visit Diagnoses Not on filedocumented in this encounter Additional Health Concerns Assessment Noted Time PHQ-9 Depression Total Score: 5 10/17/19 25 10:16 AM EDT documented as of this encounter Care Teams Yarn Skeins Examiner Relationship Specialty Start Date End Date Gordon Velez MD [address] [place] [address] PCP - General Internal Medicine 11/30/19 documented as of this encounter
--- OUTSIDE RECORDS SUMMARY | 2025-04-26 17:03 | XMS_ITS | Encounter Summary ---
Author Organization [employer] Address 75 [facility] 7t [place] [address] Care Team Providers Care Elementary Teacher Name Role Phone Gordon Velez MD Primary Care Prov ider Encounter Details Date Type Department Care Team ([facility] st Contact Info) Description 04/26/2025 Orders Only [facility] MEDICINE [address] [place], [place] [phone] Homar Shields MD [address] [place], [place] [phone] Social History Tobacco Use Types Packs/Day Years [...] Upcoming Encounters Date Type Department Care Team ([facility] st Contact Info) Description 05/03/2025 1:15 PM EDT Office Visit [facility] MED & PEDS [address] [place] [address] Homar Shields MD [address] [place] [address] 05/10/2025 1:00 PM EDT Office Visit [facility] MED & PEDS [address] [place] [address] Homar Shields MD [address] [place] [phone] 06/08/2025 1:30 PM EST Office Visit [facility] MED & PEDS [address] [place] [address] Gordon Velez MD [address] [place] [address] documented as of this encounter Goals Goal Patient Goal Type Associated Problems Recent Progress Patient-Stated? Author Enhanced ability to interact with others without suspicion or defensiveness General No Helen Jeffery, RN documented as of this encounter Procedures Procedure Name Priority Date/Time Associated Diagnosis Comments BUPRENORPHINE SCREEN,URINE Routine 04/26/2025 1:30 PM EDT documented in this encounter Results * (ABNORMAL) Buprenorphine Screen,Urine (04/26/2025 1:30 PM EDT) Buprenorphine Screen Positive( A) Not Detect ng/mL [facility] Comment:Buprenorphine cut-of f is 5 ng/mL.Positive results are unconfirmed and should not be used fornon-medical purposes. 04/26/2025 1:30 PM EDT 04/26/2025 2:47 PM EDT us Homar Shields MD LAB URINE ORDERABLES Final Resul t [facility] [address] [place] [address] [phone] documented in this encounter Visit Diagnoses Not on filedocumented in this encounter Additional Health Concerns Assessment Noted Time PHQ-9 Depression Total Score: 5 10/17/19 25 10:16 AM EDT documented as of this encounter Care Teams Elementary Teacher Relationship Specialty Start Date End Date Gordon Velez MD [address] [place] [address] PCP - General Internal Medicine 11/30/19 documented as of this encounter
--- OUTSIDE RECORDS SUMMARY | 2025-04-26 17:03 | XMS_ITS | Encounter Summary ---
Author Organization [employer] Address 75 [facility] 7 [place] [address] Care Team Providers Care Substation Electrician Name Role Phone Gordon Velez MD Primary Care Prov ider Reason for Visit * Reason Comments Med Refill Encounter Details Date Type Department Care Team ([facility] st Contact Info) Description 07/30/2024 Refill [facility] MED & PEDS [address] [place], [place] [phone] Gordon Velez MD [address] [place] [address] Chronic midline low back pain without sciatica [...] to pt regarding message below. Called via FOBOS ID# [id number]. F/u with PCP Re: pain scheduled for 08/07/24 @10:30am. * Telephone Encounter - AUDI Woodard - 07/31/2024 5:18 PM EST Last med refill on 07/07/24 following televisit for hip pain. Does not appear to be on CORPORATE ADMINISTRATIVE ASSISTANT. Will defer refill until PCP returns. She should be seen for an appt if pain is worsening. Thank you! documented in this encounter Plan of Treatment Upcoming Encounters Date Type Department Care Team (Late st Contact Info) Description 05/03/2025 1:15 PM EDT Office Visit [facility] MED & PEDS [address] [place] [address] Homar Shields MD [address] [place] [address] 05/10/2025 1:00 PM EDT Office Visit [facility] MED & PEDS [address] [place] [address] Homar Shields MD [address] [place] [address] 06/08/2025 1:30 PM EST Office Visit [facility] MED & PEDS [address] [place] [address] Gordno Velez MD [address] [place] [address] documented as of this encounter Visit Diagnoses Diagnosis Chronic midline low back pain without sciatica documented in this encounter Additional Health Concerns Assessment Noted Time PHQ-9 Depression Total Score: 18 024 1:56 PM EDT documented as of this encounter Care Teams Substation Electrician Relationship Specialty Start Date End Date Gordon Velez MD [address] [place] [address] PCP - General Internal Medicine 11/30/19 documented as of this encounter
--- OUTSIDE RECORDS SUMMARY | 2025-04-26 17:03 | XMS_ITS | Encounter Summary ---
Author Organization [employer] Address 75 [facility] 7t [place] [address] Care Team Providers Care Railroad Carman Name Role Phone Gordon Velez MD Primary Care Prov ider Encounter Details Date Type Department Care Team (Latest Contact Info) Description 04/26/2025 Travel Social History Tobacco Use Types Packs/Day Years [...] 1:15 PM EDT Office Visit [facility] MED & PEDS [address] [place] [address] Homar Shields MD [address] [place] [address] 05/10/2025 1:00 PM EDT Office Visit [facility] MED & PEDS [address] [place] [address] Homar Shields MD [address] [place] [address] 06/08/2025 1:30 PM EST Office Visit [facility] MED & PEDS [address] [place] [address] Gordon Velez MD [address] [place] [address] documented as of this encounter Goals Goal Patient Goal Type Associated Problems Recent Progress Patient-Stated? Author Enhanced ability to interact with others without suspicion or defensiveness General No Helen Jeffery, RN documented as of this encounter Visit Diagnoses Not on filedocumented in this encounter Additional Health Concerns Assessment Noted Time PHQ-9 Depression Total Score: 5 10/17/19 25 10:16 AM EDT documented as of this encounter Care Teams Railroad Carman Relationship Specialty Start Date End Date Gordon Velez MD [address] [place] [address] PCP - General Internal Medicine 11/30/19 documented as of this encounter
--- OUTSIDE RECORDS SUMMARY | 2025-04-26 17:03 | XMS_ITS | Encounter Summary ---
Author Organization [employer] Address 75 [facility] 7 [place] [address] Care Team Providers Care Shelter Advocate Name Role Phone Gordon Velez MD Primary Care Prov ider Reason for Visit * Reason Onset Date Comments Med Refill 04/21/2025 Encounter Details Date Type Department Care Team ([facility] st Contact Info) Description 04/21/2025 Refill [facility] MED & PEDS [address] [place] [address] Gordon Velez MD [address] [place] [address] Severe persistent asthma without complication (HCC) Social History Tobacco Use Types Packs/Day Years [...] Telephone Encounter - Katey Campos LPN - 04/21/2025 2:40 PM EDT Last seen 11/16/24. documented in this encounter Plan of Treatment Upcoming Encounters Date Type Department Care Team ([facility] st Contact Info) Description 05/03/2025 1:15 PM EDT Office Visit [facility] MED & PEDS [address] [place] [address] Homar Shields MD [address] [place] [address] 05/10/2025 1:00 PM EDT Office Visit [facility] MED & PEDS [address] [place] [address] Homar Shields MD [address] [place] [phone] 06/08/2025 1:30 PM EST Office Visit [facility] MED & PEDS [address] [place] [address] Gordon Velez MD [address] [place] [address] documented as of this encounter Goals Goal Patient Goal Type Associated Problems Recent Progress Patient-Stated? Author Enhanced ability to interact with others without suspicion or defensiveness Helen Izquierdo, RN documented as of this encounter Visit Diagnoses Diagnosis Severe persistent asthma without complication (HCC) documented in this encounter Additional Health Concerns Assessment Noted Time PHQ-9 Depression Total Score: 5 10/17/19 25 10:16 AM EDT documented as of this encounter Care Teams Shelter Advocate Relationship Specialty Start Date End Date Gordon Velez MD [address] [place] [address] PCP - General Internal Medicine 11/30/19 documented as of this encounter
--- OUTSIDE RECORDS SUMMARY | 2025-04-26 17:03 | XMS_ITS | Encounter Summary ---
Author Organization [employer] Address 75 [facility] 7t [place] [address] Care Team Providers Care Optical Lens Manufacturing Tech Name Role Phone Gordon Velez MD Primary Care Prov ider Reason for Visit * Reason Onset Date Comments Med Refill 04/23/2025 Encounter Details Date Type Department Care Team (Late st Contact Info) Description 04/23/2025 Refill [facility] MEDICINE [address] [place], [place] [phone] Helen Jeffery RN Uncomplicated opioid dependence (CMS/HCC) (HCC) Social History Tobacco Use Types Packs/Day [...] ([facility] st Contact Info) Description 05/03/2025 1:15 PM EDT Office Visit [facility] & PEDS [address] [place] [address] Homar Shields MD [address] [place] [address] 05/10/2025 1:00 PM EDT Office Visit [facility] [address] [place] [address] Homar Shields MD [address] [place] [address] 06/08/2025 1:30 PM EST Office Visit [facility] PEDS [address] [place] [address] Gordon Velez MD [address] [place] [address] documented as of this encounter Goals Goal Patient Goal Type Associated Problems Recent Progress Patient-Stated? Author Enhanced ability to interact with others without suspicion or defensiveness General No Helen Jeffery, DENISHA documented as of this encounter Visit Diagnoses Diagnosis Uncomplicated opioid dependence (CMS/HCC) (HCC) documented in this encounter Additional Health Concerns Assessment Noted Time PHQ-9 Depression Total Score: 5 10/17/19 25 10:16 AM EDT documented as of this encounter Care Teams Optical Lens Manufacturing Tech Relationship Specialty Start Date End Date Gordon Velez MD [address] [place] [address] PCP - General Internal Medicine 11/30/19 documented as of this encounter
[2025-05-03 12:16] LABS: Fentanyl, Ur >250.0; Norfentanyl, Ur >250.0
== END 2025-04-26 14:35 | disposition home or self-care (01) ==
LOC: HO.LNP 14:34
PROVIDERS: Visit Provider Family Medicine
DX: F11.20 Opioid dependence, uncomplicated (principal)
CPT/HCPCS: 80307; 80354

== ENCOUNTER 2025-05-24 15:19 | Outpatient (REF) | payer MEDICARE, SELFPAY ==
--- NOTE | ~2025-05-24 | US_ITS ---
EXAMINATION: US SOFT TISSUE HEAD AND NECK CLINICAL INFORMATION: Z 85.850. 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 COMPARISON: April 14, 2024. TECHNIQUE: Linear transducer perez-scale and color Doppler examination with attention to the anterior upper neck/surgical site. FINDINGS: No residual thyroid tissue. Right side of the neck: There is a 1.1 cm, reniform shaped lymph node, levels II. New. There is a 1.0 x 0.3 x 0.7 cm, reniform shaped lymph node, level III, previously measured 1.2 x 0.3 x 1.0 cm. Left-sided neck: There is a 1.6 x 0.5 x 0.6 cm reniform shaped lymph node level IB. There is a 1.0 x 0.4 x 0.6 cm, reniform shaped lymph node, level III, previously measured 1.5 x 0.4 x 0.6 cm. US/US soft tiss head and/or neck IMPRESSION: Nonspecific lymph nodes. No gross solid or cystic masses at the surgical site.. Electronically signed by: Wayne Gilliam MD 05/25/2025 07:01 AM [facility]
--- OUTSIDE RECORDS SUMMARY | 2025-05-24 16:36 | XMS_ITS | Clinical Summary ---
Author Organization [facility] [place] Address [address] [place] [address] Care Team Providers Care Global Product Manager Name Role Phone Verna Michael Mcclain Primary Care Provider + [phone] Allergies No known active allergies Medications traMADoL [...] Years (1 of 2 - PCV) 10/11/[address] Lung Cancer Screening (Baseline) 10/11/2009 Osteoporosis Screening 10/11/2009 Zoster Vaccines (1 of 2) 10/11/2009 Alcohol/Substance Use Screening 07/22/2024 Health Care Proxy Review 07/22/2024 COVID-19 Vaccine (1 - 2024-2 6 season) 2025 Influenza Vaccine (#1) 2025 8, 05/31/2016 DTaP,Tdap,and Td Vaccines (3 - Td or Tdap) 02/12/2029 02/12/2019, 09/04/2014, 09/04/2014 RSV Vaccine (60+ years old a nd patients) (1 - 1-dose 75+ series) 10/11/2034 Hepatitis B Vaccines Aged Out No long er eligible based on patient's age to complete this topic Insurance [employer] Care Teams Global Product Manager Relationship Specialty Start Date End Date Michael Gillespie [address] [place] [address] NATHAN Cortez [phone] PCP - General Internal Medicine 11/24/20
== END 2025-05-24 15:20 | disposition home or self-care (01) ==
LOC: HO.US 15:19
PROVIDERS: Family Medicine; PCP Internal Medicine; Visit Provider Student in an Organized Health Care Education/Training Program
DX: Z85.850 Personal history of malignant neoplasm of thyroid (principal); F11.20 Opioid dependence, uncomplicated
CPT/HCPCS: 76536; 80348; 80362

== ENCOUNTER → 2025-05-24 15:21 | Outpatient (BNV) | payer MEDICARE, SELFPAY | PROVIDERS: PCP Internal Medicine; Visit Provider Radiology Diagnostic Radiology | DX: Z85.850 Personal history of malignant neoplasm of thyroid (principal); Z90.89 Acquired absence of other organs | CPT/HCPCS: 76536 ==

== ENCOUNTER 2025-06-02 10:30 | Outpatient (REF) | payer OTHER, SELFPAY ==
--- OUTSIDE RECORDS SUMMARY | 2025-05-31 13:00 | XMS_ITS | Encounter Summary ---
Author Organization [employer] Address [address] [facility] 7[address] [place] [address] Care Team Providers Care Continuing Education Dean Name Role Phone Gordon Velez MD Primary Care Prov ider Reason for Visit * Reason Comments OBAT F/U Encounter Details Date Type Department Care Team (Latest Contact Info) Description 05/31/2025 1:00 PM EST Office Visit [facility]C MED & PEDS [address] [place], [place] [phone] Homar Shields MD [address] [place] [address] Uncomplicated opioid dependence (CMS/HCC) (HCC) (Primary Dx) Social History Tobacco [...] Progress Notes * Homar Shields MD - 05/31/2025 1:00 PM EST Error * Homar Shields MD - 05/31/2025 1:00 PM EST Patient with OUD for OBAT. Currently on Buprenorphine-Naloxone 8mg-2mg SL BID on a weekly schedule.Patient has been in the program for 5 months. Induction date: 01/05/2025. LFTs done 12/10/2024. Patient actively enrolled w/ [facility]. Sees Dr. Gurrola at [facility]. Last PCP appt 11/16/2024. LAST OBAT VISIT 05/24/2025 UTOX: POS FEN, BZO, OXY NEG FOR BUP (states she has been taking the Rx) Patient presents for OUD OBAT visit Long history of street-purchased Percocet use (13 years) UTOX serially positive for FEN BUP negative today; reports she has been taking the Rx Will send out confirmation test Repeatedly denied narcotic use When inquired about possible sources, patient always answers no s?? States she is unaware of the source of OPI or FEN Requesting to continue at Suboxone 8mg/2mg SL BID dose States Suboxone has been helpful with cravings The program policy reviewed with the patient Has prescribed Clonazepam from her psychiatrist (last seen 2 weeks ago with q2 month visits) Seeing therapist weekly Discussed intensifying treatment options Discussed group meetings, but declines Reviewed the clinic goals, expectations and policies Consented to the treatment options TODAY OBAT VISIT 05/31/2025 UTOX: POS BZO, FEN NEG FOR BUP Patient presents for OUD OBAT visit Long history of street-purchased Percocet use (13 years) UTOX serially positive for FEN BUP negative again today (also last week; confirmation test also negative) Discussed further options Continues to deny narcotic use and states she is taking BUP When inquired about possible sources, patient always answers no s?? States she is unaware of the source of OPI or FEN Informed I can no longer prescribe SL Buprenorphine/Naloxone given current findings Discussed other treatment options including Sublocade injection, Methadone, and detox Met with and reviewed these options The program policy reviewed with the patient Has prescribed Clonazepam from her psychiatrist (last seen 3 weeks ago with q2 month visits) Seeing therapist weekly Discussed intensifying treatment options Discussed group meetings, but declines Reviewed the clinic goals, expectations and policies Consented to the treatment options Patient is interested in trying Sublocade SL Suboxone 5-day Rx provided Follow up in [facility] this Saturday Review of Systems Psychiatric/Behavioral: Negative for behavioral problems and dysphoric mood. The patient is not nervous/anxious. Physical Exam Constitutional: Appearance: Normal appearance. Pulmonary: Effort: Pulmonary effort is normal. Neurological: Mental Status: She is alert. Psychiatric: Mood and Affect: Mood normal. Behavior: Behavior normal. Jodi was seen today for obat f/u . Diagnoses and all orders for this visit: Uncomplicated opioid dependence (CMS/HCC) ([facility]) (Primary) - POCT TONY-14 Urine Drug Screen Patient presents for a routine OUD OBAT visit Discussed treatment options for opioid dependence Currently on Rx for Buprenorphine-Naloxone 8mg-2mg SL bid UTOX serially positive for FEN UTOX serially negative for BUP Repeatedly denied narcotic use States she is unaware of the source of OPI or FEN Informed I can no longer continue with Rx SL Buprenorphine/Naloxone Discussed other treatment options, including detox, Methadone, and injectable Buprenorphine Patient would like to try injectable Buprenorphine 5-day Rx of SL Suboxone prescribed Follow up in the [facility] office this Saturday Discussed behavioral modification and accessing services Counseling provided with a focus on support system, tools for achieving/maintaining recovery Reviewed barriers for these goals Discussed strategies to address when faced situations that may trigger use Narcan use discussed MassP reviewed Reviewed risk assessment for family planning, STI and PrEP This information has been disclosed to you [...] Care Team (Late st Contact Info) Description 06/04/2025 1:00 PM EST Office Visit [facility] MEDICINE [address] [place] [phone] Homar Shields MD [address] [place] [phone] 06/07/2025 1:00 PM EST Office Visit [facility] MED & PEDS [address] [place] [address] Homar Shields MD [address] [place] [address] 06/08/2025 1:30 PM EST Office Visit [facility] MED & PEDS [address] [place] [address] Gordon Velez MD [address] [place] [address] documented as of this encounter Goals Goal Patient Goal Type Associated Problems Recent Progress Patient-Stated? Author Enhanced ability to interact with others without suspicion or defensiveness General Helen Baez, DENISHA documented as of this encounter Procedures Procedure Name Priority Date/Time Associated Diagnosis Comments POCT TONY-14 URINE DRUG SCREEN Routine 05/31/2025 1:04 PM EST Uncomplicated opioid dependence (CMS/HCC) (HCC) documented in this encounter Results * (ABNORMAL) POCT TONY-14 Urine Drug Screen (05/31/2025 1:04 PM EST) THC Negative Negative Cocaine Screen, Urine Negative Negative Opiate Screen, Urine Negative Negative Methamphetamine Screen Urine Negative Negative Amphetamine Screen, Urine Negative Negative Benzodiazepines Screen, Urine Positive(A) Negative Barbiturate Screen, Urine Negative Negative Methadone Screen, Urine Negative Negative Buprenophine Screen, Urine Negative Negative TCA, Urine Negative Negative MDMA Urine Negative Negative ng/mL Oxycodone Screen, Urine Negative Negative Phencyclidine (PCP), Urine Negative Negative Fentanyl, Urine Positive(A) Negative Urine Urine specimen obtained by clean catch procedure / Unknown 05/31/2025 1:04 PM EST Homar Shields MD POINT OF CARE TEST ENTER/EDIT OR DERABLES Final Result documented in this encounter Visit Diagnoses Diagnosis Uncomplicated opioid dependence (CMS/HCC) (HCC)- Primary documented in this encounter Additional Health Concerns Assessment Noted Time PHQ-9 Depression Total Score: 5 10/17/19 25 10:16 AM EDT documented as of this encounter Care Teams Continuing Education Dean Relationship Specialty Start Date End Date Gordon Velez MD [address] [place] [phone] PCP - General Internal Medicine 11/30/19 documented as of this encounter
[2025-06-02 12:21] LABS: Free T4 (Free Thyroxine) 1.17 ng/dL (0.71-1.85); Thyroid Stimulating Hormone 0.33 uIU/mL (0.32-4.0)
--- OUTSIDE RECORDS SUMMARY | 2025-06-02 12:35 | XMS_ITS | Encounter Summary ---
Author Organization [employer] Address [address] [facility] 7 [place] [address] Care Team Providers Care Rubber Process Hand Name Role Phone Gordon Velez MD Primary Care Prov ider Reason for Visit * Reason Onset Date Comments Prior Authorization 10/01/2024 Encounter Details Date Type Department Care Team (Late st Contact Info) Description 10/01/2024 Telephone [facility] MEDICINE [address] [place] [address] Gordon Velez MD [address] [place], [place] [phone] Prior Authorization Social History Tobacco Use Types [...] [employer] Lancets 33G misc. Contact pt at [phone] * Telephone Encounter - Alec Moran - 10/01/2024 12:35 PM EDT Tc from pt requesting PA for med [employer] Lancets 33G misc. Contact pt at [phone] documented in this encounter Plan of Treatment Upcoming Encounters Date Type Department Care Team (Late st Contact Info) Description 06/04/2025 1:00 PM EST Office Visit [facility] MEDICINE [address] [place] [address] Homar Shields MD [address] [place] [address] 06/07/2025 1:00 PM EST Office Visit [facility] CHC MED & PEDS [address] [place] [address] Homar Shields MD [address] [place], [place] [phone] 06/08/2025 1:30 PM EST Office Visit [facility] CHC MED & PEDS [address] [place] [address] Gordon Velez MD [address] [place], [place] [phone] documented as of this encounter Visit Diagnoses Not on filedocumented in this encounter Additional Health Concerns Assessment Noted Time PHQ-9 Depression Total Score: 18 024 1:56 PM EDT documented as of this encounter Care Teams Rubber Process Hand Relationship Specialty Start Date End Date Gordon Velez MD [address] [place] [address] PCP - General Internal Medicine 11/30/19 documented as of this encounter
--- OUTSIDE RECORDS SUMMARY | 2025-06-02 12:35 | XMS_ITS | Encounter Summary ---
Author Organization [employer] Address [address] [facility] [address] [place] [address] Care Team Providers Care Acrobatic Rigger Name Role Phone Gordon Velez MD Primary Care Prov ider Encounter Details Date Type Department Care Team ([facility] st Contact Info) Description 10/07/2024 Orders Only [facility] CHC MED & PEDS [address] [place], [place] [phone] Gordon Velez MD [address] [place] [address] Type 2 diabetes mellitus without complication, without long-term current use of insulin ([facility]) Social History Tobacco Use Types [...] Description 06/04/2025 1:00 PM EST Office Visit [facility] MEDICINE [address] [place] [phone] Homar Shields MD [address] [place] [phone] 06/07/2025 1:00 PM EST Office Visit [facility] MED & PEDS [address] [place] [phone] Homar Shields MD [address] [place] [phone] 06/08/2025 1:30 PM EST Office Visit [facility] MED & PEDS [address] [place] [address] Gordon Velez MD [address] [place] [address] documented as of this encounter Visit Diagnoses Diagnosis Type 2 diabetes mellitus without complication, without long-term current use of insulin (HCC) documented in this encounter Additional Health Concerns Assessment Noted Time PHQ-9 Depression Total Score: 18 024 1:56 PM EDT documented as of this encounter Care Teams Acrobatic Rigger Relationship Specialty Start Date End Date FamGordon Salas MD [address] [place] [phone] PCP - General Internal Medicine 11/30/19 documented as of this encounter
--- OUTSIDE RECORDS SUMMARY | 2025-06-02 12:36 | XMS_ITS | Clinical Summary ---
Author Organization [employer] Address [address] [place] [address] Care Team Providers Care Blue Line Operator Name Role Phone Gordon Velez MD [...] kit 06/23/20 24 2024 Active Nebul[place] [facility] [place] route Once per day. 90 each 3 19/20 25 2025 Active lactulose (Chronulac) 10 GM/15ML [...] ALLERGIES 90 tablet 3 01/28/20 25 Active Ketotifen Fumarate 0.035 % solutionIndicati ons:Redness of left eye INSTILL ONE DROP IN THE AFFECTED EYE(S) TWICE DAILY IN THE MORNING AND AT BEDTIME 5 mL 01/30/20 25 Active famotidine (Pepcid) 20 MG tablet TAKE ONE TABLET BY MOUTH AT BEDTIME 90 tablet 3 03/08/20 25 Active glucose blood (FREESTYLE LITE) test [...] times daily 1 kit 04/14/20 25 Active fluticasone (Flonase) 50 MCG/ACT nasal sprayIndications :Seasonal allergies INHALE ONE SPRAY IN EACH NOSTRIL TWICE DAILY 48 g 05/07/20 25 Active albuterol 108 (90 Base) MCG/ACT inhalerIndicatio ns:Severe persistent asthma without complication (HCC) INHALE TWO PUFFS EVERY 6 HOURS NEEDED FOR WHEEZING 18 g 05/07/20 25 Active Breo Ellipta 200-25 MCG/ACT aerosol powderIndication s:Moderate persistent asthma without complication INHALE 1 PUFF DAILY AT THE SAME TIME EACH DAY. RINSE MOUTH AFTER USE 60 each 1 05/10/20 25 Active Atrovent HFA 17 MCG/ACT inhaler INHALE TWO PUFFS EVERY 6 HOURS 12.9 g 3 05/27/20 25 Active Nutritional Supplements (Boost High Protein) liquid BRINK ONE BOTTLE TWICE DAILY 5688 mL 11 06/01/20 25 Active Buprenorphine HCl-Naloxone HCl (Suboxone) 8-2 MG SL filmIndications: Uncomplicated opioid dependence (CMS/HCC) ([facility]) Place 1 Film under the tongue 2 times daily for 5 days. 10 Film 05/31/20 25 2024 Active buprenorphine ER (Sublocade) 300 mg/1.5mL injectionIndicat ions:Uncomplicat ed opioid dependence (CMS/HCC) ([facility]) Inject 1.5 mL (1 each) under the skin every month to absorb continually. 1.5 mL 1 05/31/20 25 2025 Active Nutritional Supplements (Boost High Protein) liquid DRINK ONE BOTTLE TWICE DAILY 1 mL 11 01/28/20 25 2024 Discontinued fluticasone (Flonase) 50 MCG/ACT nasal sprayIndications :Seasonal allergies INHALE ONE SPRAY IN EACH NOSTRIL TWICE DAILY 48 g 02/23/20 25 2024 Discontinued(R eorder (will not trigger notification to Pharmacy)) ipratropium (Atrovent) 17 MCG/ACT inhaler Inhale 2 puffs every 6 (six) hours. 12.9 g 3 02/26/20 25 2024 Discontinued Breo Ellipta 200-25 MCG/ACT aerosol powderIndication s:Moderate persistent asthma without complication INHALE 1 PUFF DAILY AT THE SAME TIME EACH DAY 60 each 1 03/16/20 25 2024 Discontinued albuterol 108 (90 Base) MCG/ACT inhalerIndicatio ns:Severe persistent asthma without complication (HCC) INHALE TWO PUFFS EVERY 6 HOURS NEEDED FOR WHEEZING 18 g 04/22/20 25 2024 Discontinued(R eorder (will not trigger notification to Pharmacy)) Buprenorphine HCl-Naloxone HCl (Suboxone) 8-2 MG SL filmIndications: Uncomplicated opioid dependence (CMS/HCC) (HCC) Place 1 Film under the tongue 2 times daily for 7 days. Do not start before May 03, 2025. 14 Film 05/03/20 25 2024 Discontinued(R eorder (will not trigger notification to Pharmacy)) Buprenorphine HCl-Naloxone HCl (Suboxone) 8-2 MG SL filmIndications: Uncomplicated opioid dependence (CMS/HCC) (HCC) Place 1 Film under the tongue 2 times daily for 11 days. 22 Film 05/14/20 25 2024 Discontinued(R eorder (will not trigger notification to Pharmacy)) Buprenorphine HCl-Naloxone HCl (Suboxone) 8-2 MG SL filmIndications: Uncomplicated opioid dependence (CMS/HCC) (HCC) Place 1 Film under the tongue 2 times daily for 7 days. 14 Film 05/24/20 25 2024 Discontinued(R eorder (will not trigger notification to Pharmacy)) Buprenorphine HCl-Naloxone HCl (Suboxone) 8-2 MG SL filmIndications: Uncomplicated opioid dependence (CMS/HCC) (HCC) Place 1 Film under the tongue 2 times daily for 7 days. Do not start before May 31, 2025. 14 Film 05/31/20 25 2024 Discontinued(R eorder (will not trigger notification to Pharmacy)) Active Problems Patient Care Coordination No te Formatting of this note migh t be different from the original. 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, but recent screening test was positive for [...] Encounters Date Type Department Care Team Description 06/02/2025 Orders Only GENERIC EXTERNAL DATA DEPARTMENT Provider, Generic External Data 05/31/2025 1:00 PM EST Office Visit [facility] [address] [place] [address] Homar Shields MD Uncomplicated opioid dependence (CMS/HCC) (HCC) (Primary Dx) 05/31/2025 Travel 05/31/2025 Refill [facility] [address] [place] [address] Gordon Velez MD 05/27/2025 Refill [facility] [address] [place] [address] Gordon Velez MD 05/25/2025 Refill [facility] [address] [place] [address] Helen Jeffery RN Uncomplicated opioid dependence (CMS/HCC) (HCC) 05/24/2025 1:15 PM EST Office Visit [facility] [address] [place] [address] Homar Shields MD Opioid type dependence, continuous (CMS/HCC) (HCC) (Primary Dx) 05/24/2025 Travel 05/21/2025 Refill [facility] [address] [place] [address] Helen Jeffery RN Uncomplicated opioid dependence (CMS/HCC) (HCC) 05/14/2025 1:15 PM EDT Office Visit [facility] [address] [place] [address] Homar Shields MD Uncomplicated opioid dependence (CMS/HCC) (HCC) (Primary Dx) 05/14/2025 Travel 05/11/2025 Telephone [facility] [address] [place] [address] Brenda Ball [place] 05/08/2025 Refill [facility] [address] [place] [address] Gordon Velez MD Moderate persistent asthma without complication 05/06/2025 Telephone [facility] [address] [place] [address] Gordon Velez MD Med Refill 05/05/2025 Refill [facility] [address] [place] [address] Gordon Velez MD Seasonal allergies; Severe persistent asthma without complication (HCC) 04/27/2025 Refill [facility] [address] [place] [phone] Helen Jeffery RN Uncomplicated opioid dependence ([facility]/HCC) (HCC) 04/27/2025 Refill [facility] [address] [place] [phone] Helen Jeffery RN Uncomplicated opioid dependence (CMS/HCC) (HCC) 04/27/2025 Refill [facility] [address] [place] [address] Helen Jeffery RN Uncomplicated opioid dependence (CMS/HCC) (HCC) 04/26/2025 1:15 PM EDT Office Visit [facility] [address] [place] [address] Homar Shields MD Opioid type dependence, continuous ([facility]) ([facility]) (Primary Dx) 04/26/2025 Orders Only [facility] [address] [place] [phone] Homar Shields MD 04/26/2025 Travel 04/23/2025 Refill [facility] [address] [place] [phone] Helen Jeffery RN Uncomplicated opioid dependence ([facility]/HCC) (HCC) 04/21/2025 Refill [facility] [address] [place] [address] Gordon Velez MD Severe persistent asthma without complication (HCC) 04/19/2025 1:15 PM EDT Office Visit [facility] [address] [place] [address] Homar Shields MD Uncomplicated opioid dependence ([facility]/HCC) (Primary Dx) 04/19/2025 Travel 04/14/2025 Refill [facility] [address] [place] [phone] Helen Jeffery RN Uncomplicated opioid dependence ([facility]/HCC); Opioid type dependence, continuous (CMS/HCC) 04/12/2025 1:30 PM EDT Office Visit [facility] [address] [place] [address] Homar Shields MD Uncomplicated opioid dependence (CMS/HCC) (Primary Dx); Opioid type dependence, continuous (CMS/HCC) 04/12/2025 Travel 04/09/2025 Refill [facility] [address] [place] [address] Gordon Velez MD 04/05/2025 1:00 PM EDT Office Visit [facility] [address] [place] [address] Homar Shields MD Opioid type dependence, continuous (CMS/HCC) (Primary Dx) 04/05/2025 Travel 03/31/2025 Telephone [facility] [address] [place] [address] Sara [place], [place] 03/30/2025 Telephone [facility] [address] [place] [address] Sara Seguramira [place] 03/30/2025 Telephone [facility] [address] [place] [address] Gordon Velez MD Med Refill 03/26/2025 Telephone [facility] [address] [place] [address] Gordon Velez MD Durable Medical Equipment 03/26/2025 Telephone [facility] [address] [place] [address] Gordon Velez MD Nurse Triage 03/26/2025 Refill [facility] [address] [place] [address] Gordon Velez MD Type 2 diabetes mellitus without complications (CMS/HCC) 03/23/2025 Refill [facility] [address] [place] [address] Gordon Velez MD Severe persistent asthma without complication 03/19/2025 Refill [facility] [address] [place] [address] Gordon Velez MD Type 2 diabetes mellitus without complication, without long-term current use of insulin (CMS/HCC) 03/19/2025 Telephone [facility] [address] [place] [address] Gordon Velez MD glucose monitor 03/17/2025 2:15 PM EDT Office Visit [facility] [address] [place] [address] Alice Billings, OD Corneal ulcer of left eye (Primary Dx) 03/17/2025 Travel 03/16/2025 Refill [facility] [address] [place] [address] Helen Jeffery, RN Uncomplicated opioid dependence ([facility]) 03/16/2025 Telephone [facility] [address] [place] [address] Alice Billings, OD 03/15/2025 11:00 AM EDT Telemedicine [facility] [address] [place] [address] Homar Shields MD Uncomplicated opioid dependence ([facility]) (Primary Dx) 03/13/2025 Refill [facility] [address] [place] [address] Gordon Velez MD Moderate persistent asthma without complication 03/12/2025 Telephone [facility] [address] [place] [address] Helen Jeffery, DENISHA 03/12/2025 Telephone [facility] [address] [place] [phone] Alicia Recinos [place] 03/11/2025 Telephone [facility] [address] [place] [address] Gordon Velez MD No Show 03/11/2025 Telephone [facility] [address] [place] [address] Gordon Velez MD 03/11/2025 Travel 03/10/2025 Telephone [facility] [address] [place] [address] Gordon Velez MD chart prep 03/08/2025 10:45 AM EDT Clinical Support [facility] [address] [place] [address] Helen Jeffery RN Uncomplicated opioid dependence (CMS/HCC) (Primary Dx) 03/08/2025 Travel 03/05/2025 Refill [facility] [address] [place] [address] Helen Jeffery RN Uncomplicated opioid dependence (CMS/HCC) 03/03/2025 Telephone [facility] [address] [place] [address] Gordon Velez MD R/S APPT 03/02/2025 Refill [facility] [address], [place] [phone] Gordon Velez MD from Last 3 Months Immunizations Immunization Administration [...] Description 06/04/2025 1:00 PM EST Office Visit [facility] [address] [place] [address] Homar Shields MD [address] [place] [address] 06/07/2025 1:00 PM EST Office Visit [facility] [address] [place] [address] Homar Shields MD [address] [place] [address] 06/08/2025 1:30 PM EST Office Visit [facility] [address], [place] [phone] Gordon Velez MD [address] [place], [place] [phone] Health Maintenance Due Date Last Done Comments CT Colonography 1959 FIT DNA/Cologuard 1959 FIT 1959 FOBT 1960 Sigmoidoscopy 1960 Derm Melanoma Skin Check 04/13/1960 Diabetes: Foot Exam 10/11/1969 Alcohol/Substance Use Screening 1971 Pneumococcal Vaccine: 50+ Years (1 of 2 - PCV) 10/11/1978 RSV Patients and Patients Aged 60 years or older (1 - Risk 50-74 years 1-dose series) 10/11/2009 Zoster Vaccines (1 of 2) 10/11/2009 Colonoscopy 11/23/2020 11/24/2015 Colorectal Cancer Screening 11/23/2020 Diabetes: Urine Protein Screening 05/31/2021 05/31/2020 COVID-19 Vaccine ( season) 2025 06/23/2021, 10/19/2020, 09/21/2020 Influenza Vaccine (#1) 2025 , 06/10/2018, 08/29/2017, Additional history exists SDOH Screening 03/30/2025 03/30/2024 Pap Smear 04/10/2025 04/10/2022 Diabetes: Hemoglobin A1C 06/23/2025 025, 08/07/2024, 05/13/2024, Additional history exists Mammogram 09/18/2025 09/19/2023, 02/19, 04/12/2021, Additional history exists Depression Screening 10/16/2025 10/16/2024, 10/17/19 Lipid Panel 12/10/2025 12/10/2024, 05/13/2024 Tobacco Screening [...] suspicion or defensiveness General No Helen Jeffery, electrician wiring Procedure Name Priority Date/Time Associated Diagnosis Comments TSH Routine 06/02/2025 10:44 AM EST T4, FREE Routine 06/02/2025 10:44 AM EST POCT TONY-14 URINE DRUG SCREEN Routine 05/31/2025 1:04 PM EST Uncomplicated opioid dependence (CMS/HCC) (HCC) US HEAD NECK SOFT TISSUE Routine 05/24/2025 3:39 PM EST POCT TONY-14 URINE DRUG SCREEN Routine 05/24/2025 1:24 PM EST Opioid type dependence, continuous (CMS/HCC) (HCC) DRUG TOX MONITORING BUPRENORPHINE, W/CONF,U Routine 05/24/2025 12:00 AM EST Opioid type dependence, continuous (CMS/HCC) (HCC) POCT TONY-14 URINE DRUG SCREEN Routine 05/14/2025 1:49 PM EDT Uncomplicated opioid dependence (CMS/HCC) (HCC) BUPRENORPHINE SCREEN,URINE Routine 04/26/2025 1:30 PM EDT DRUG MONITOR, FENTANYL, W/CONF, URINE Routine 04/26/2025 1:30 PM EDT Opioid type dependence, continuous (CMS/HCC) [...] AM EDT Uncomplicated opioid dependence (CMS/HCC) POCT GLYCATED [...] Recently Relevant to Health Maintenance Results * TSH (06/02/2025 10:44 AM EST) Thyroid Stimulating Hormone 0.33 0.32 - 4.0 uIU/mL [facility] Comment:TSH 3rd Generation ( [employer]) 06/02/2025 10:4 4 AM EST 06/02/2025 10:44 AM EST us Generic External Data Provider LAB BLOOD ORDERAB LES Final Result [facility] [address] [place] [phone] * T4, Free (06/02/2025 10:44 AM EST) Free T4 (Free Thyroxine) 1.17 0.71 - 1.85 ng/dL [facility] 06/02/2025 10:4 4 AM EST 06/02/2025 10:44 AM EST us Generic External Data Provider LAB BLOOD ORDERAB LES Final Result [facility] [address] [place] [phone] * (ABNORMAL) POCT TONY-14 Urine Drug Screen (05/31/2025 1:04 PM EST) Only the most recent of9 resultswithin the [...] TEST ENTER/EDIT OR DERABLES Final Result * US Head Neck Soft Tissue (05/24/2025 3:39 PM EST) Anatomical Region Laterality Modality Head, Neck Ultrasound 05/24/2025 3:39 PM EST Narrative 05/25/2025 7:04 AM EST [address] [address] Ultrasound Report Signed Patient: Jodi Saenz MR#: [id number] : 1960 Acct:[id number] Age/Sex: 64 / F ADM Date: 05/24/25 Loc: HO.US Attending Dr: Nuris Wayne MD Ordering Physician: Nuris Wayne MD Date of Service: 05/24/25 Procedure(s): US soft tiss head and/or neck Accession Number(s): [id number] cc: Gordon Velez MD; Nuris Wayne MD Reason for Exam: Z85.850 - Personal history of malignant neoplasm of thyroid EXAMINATION: US SOFT TISSUE HEAD AND NECK CLINICAL INFORMATION: Z 85.850. 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 COMPARISON: April 14, 2024. TECHNIQUE: Linear transducer perez-scale and color Doppler examination with attention to the anterior upper neck/surgical site. FINDINGS: No residual thyroid tissue. Right side of the neck: There is a 1.1 cm, reniform shaped lymph node, levels II. New. There is a 1.0 x 0.3 x 0.7 cm, reniform shaped lymph node, level III, previously measured 1.2 x 0.3 x 1.0 cm. Left-sided neck: There is a 1.6 x 0.5 x 0.6 cm reniform shaped lymph node level IB. There is a 1.0 x 0.4 x 0.6 cm, reniform shaped lymph node, level III, previously measured 1.5 x 0.4 x 0.6 cm. US/US soft tiss head and/or neck IMPRESSION: Nonspecific lymph nodes. No gross solid or cystic masses at the surgical site.. Electronically signed by: Wayen Gilliam MD 05/25/2025 07:01 AM EST Dictated By: Wayne George MD Signed By: <Electronically signed by Wayne Recinos MD in OV> 05/25/25 0701 DD/ 1539 TD/TT: 05/24/25 1551 High Scaler: Procedure Note Donotuseinterpreter, Image - 05/25/2025 [place] [address] Ultrasound Report Signed Patient: Herman Saenz#: [id number] : 1960Acct:[id number] Age/Sex: 64 / FADM Date: 05/24/25 Loc: HO.US Attending Dr: Nuris Wayne MD Ordering Physician: Nuris Wayne MD Date of Service: 05/24/25 Procedure(s): US soft tiss head and/or neck Accession Number(s): [id number] cc: Gordon Velez MD; Nuris Wayne MD Reason for Exam: Z85.850 - Personal history of malignant neoplasm ofthyroid EXAMINATION: US SOFT TISSUE HEAD AND NECK CLINICAL INFORMATION: Z 85.850. 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 COMPARISON: April 14, 2024. TECHNIQUE: Linear transducer perez-scale and color Doppler examination with attention to the anterior upper neck/surgical site. FINDINGS: No residual thyroid tissue. Right side of the neck: There is a 1.1 cm, reniform shaped lymph node, levels II. New. There is a 1.0 x 0.3 x 0.7 cm, reniform shaped lymph node, level III, previously measured 1.2 x 0.3 x 1.0 cm. Left-sided neck: There is a 1.6 x 0.5 x 0.6 cm reniform shaped lymph node level IB. There is a 1.0 x 0.4 x 0.6 cm, reniform shaped lymph node, level III, previously measured 1.5 x 0.4 x 0.6 cm. US/US soft tiss head and/or neck IMPRESSION: Nonspecific lymph nodes. No gross solid or cystic masses at the surgical site.. Electronically signed by: Wayne Gilliam MD 05/25/2025 07:01 AM EST Dictated By: Wayne George MD Signed By: <Electronically signed by Wayne Recinos MDin OV> 05/25/25 0701 DD/ 1539 TD/TT: 05/24/25 1551 High Scaler: [employer] External Provider IMG US PROCEDURES Final Result * Drug Toxicology Monitoring Buprenorphine, with Confirmation, Urine (05/24/2025 12:00 AM EST) Buprenorphine NEGATIVE [facility] Norbuprenorphine NEGATIVE [facility] Naloxone, Urine NEGATIVE [facility] Buprenorphine Comments SEE NOTE [facility] Comment: Drug Monitoring ReportTest Ordered Result CutoffDRUG MONITOR, BUP AND NALOXONE,QN,URINEBuprenorphine NEGATIVE 2 ng/mLNorbuprenorphine NEGATIVE 2 ng/mLNaloxone NEGATIVE 2 ng/mLBuprenorphine Comments: See LDT NotesNOTES AND COMMENTSThis drug testing is for medical treatment only. Analysiswas performed as non-forensic testing and these resultsshould be used only by healthcare providers to renderdiagnosis or treatment, or to monitor progress of medicalconditions.LDT Notes:Confirmation tests were developed and their analyticalperformance characteristics have been determined by [employer]. It has not been cleared or approved by the FDA.This assay has been validated pursuant to the CLIAregulations and is used for clinical purposes.Healthcare Providers needing Interpretation assistance,please contact us at [phone] ( ) M-F,8am to 10pm ESTPERFORMING SITE:[employer] [facility], [address] [place], [place] [phone] [employer] Furn[employer] Operator Helper: ASHVIN AMBROCIO MD, CLIA:[id number] Urine (Urine, Random) 05/24/2025 05/24/2025 us Homar Shields MD LAB URINE ORDERABLES Final Resul t [facility] [address] [place] [phone] * (ABNORMAL) Buprenorphine Screen,Urine (04/26/2025 1:30 PM EDT) Buprenorphine Screen Positive( A) Not Detect ng/mL [facility] Comment:Buprenorphine cut-of f is 5 ng/mL.Positive results are unconfirmed and should not be used fornon-medical purposes. 04/26/2025 1:30 PM EDT 04/26/2025 2:47 PM EDT Homar Shields MD LAB URINE ORDERABLES Final Resul t [facility] [address] [place] [phone] * Drug Monitoring, Fentanyl, with Confirmation, Urine (04/26/2025 1:30 PM EDT) Fentanyl, Ur >250.0 [facility] Comment:CUTOFF 0.5 NG/ML Norfentanyl, Ur >250.0 [facility] Comment:CUTOFF 0.5 NG/ML Fentanyl Note SEE NOTE [facility] Comment: NOTES AND COMMENTSThis drug testing is for medical treatment only. Analysiswas performed as non-forensic testing and these resultsshould be used only by healthcare providers to renderdiagnosis or treatment, or to monitor progress of medicalconditions. Fentanyl Notes: Fentanyl, Norfentanyl detectedis consistent with the use of the drug Fentanyl.LDT Notes: Confirmation tests were developed and theiranalytical performance characteristics have been determinedby [employer]. It has not been cleared or approved bythe FDA. This assay has been validated pursuant to the CLIAregulations and is used for clinical purposes. HealthcareProviders needing Interpretation assistance, please contactus at [phone] ( ) M-F, 8am to 10pm ESTThis drug testing is for medical treatment only. Analysiswas performed as non-forensic testing and these resultsshould be used only by healthcare providers to renderdiagnosis or treatment, or to monitor progress of medicalconditions.PERFORMING SITE:[facility] [employer] [phone] LaboratoryDirector: AMY GAMINO MD, CLIA: [id number] Urine (Urine, Random) 04/26/2025 1:30 PM EDT 04/26/2025 2:37 PM EDT Homar Shields MD LAB URINE ORDERABLES Final Resul t Performing Organization Address City/[facility]/ZIP Co de Phone Number [facility] [address] [place] [address] [phone] * POCT HGB A1C (12/22/2024 3:22 PM EDT) Hemoglobin A1C 5.5 4.0 - 6.0 % QC Media Lot # [id number] Lot# Expiration Date Blood 12/22/2024 3:22 PM EDT us Michael Gillespie MD POINT OF CARE TEST ENTER/ED IT ORDERABLES Final Result * (ABNORMAL) Lipid Panel, Standard (12/10/2024 11:42 AM EDT) Triglycerides 127 <150 mg/dL [facility] Comment:Desirable Triglyceri de: less than 150 mg/dLBorderline High Triglyceride 150-199 mg/dLHigh Triglyceride: 200-499 mg/dLVery High Triglyceride: greater than or equal to 5OO mg/dL Cholesterol 140 <200 mg/dL [facility] Comment:Desirable Cholestero l: less than 200 mg/dLBorderline High Cholesterol: 200-239 mg/dLHigh Cholesterol: greater than 239 mg/dL LDL Cholesterol Calculated 77 <100 mg/dL [facility] Comment:Desirable LDL: less than 100 mg/dLNear Optimal/Above Optimal LDL: 110- 129 mg/dLBorderline High LDL: 130-159 mg/dLHigh LDL: 160-189 mg/dLVery High LDL: greater than or equal to 190 mg/dL HDL Cholesterol 38(L) >40 mg/dL [facility] Comment:Desirable HDL: great er than 40 mg/dL Note: This HDL assay may give artificially low results in patients with liver disease. Blood Venous blood specimen / Unknown 12/10/2024 11:42 AM EDT 12/10/2024 11:42 AM EDT us Gordon Rose MD LAB BLOOD ORDERABL ES Final Result [facility] [address] [place] [address] [phone] * Hepatitis C Antibody with Reflex to HCV, RNA, Quantitative, Real-Time PCR (05/13/2024 2:24 PM EDT) Hepatitis C Antibody Nonreactive Nonreactive [facility] Comment:Antibodies to HCV no t detected; does not exclude early acuteHCV infection. Blood Venous blood specimen / Unknown 05/13/2024 2:24 PM EDT 05/13/2024 5:31 PM EDT Gordon oRse MD LAB BLOOD ORDERABL ES Final Result Performing Organization Address [facility] Co de Phone Number [facility] [address] [place] [phone] * BI Mammogram Screening Tomosynthesis Left (09/19/2023 12:35 PM EST) Anatomical Region Laterality Modality Breast Left Mammography 09/19/2023 12:3 5 PM EST Narrative 09/23/2023 10:08 AM EST [facility] [address] [place] [address] Mammography Report Signed Patient: Jodi Saenz MR#: [id number] : 1960 Acct:[id number] Age/Sex: 62 / F ADM Date: 09/19/23 Loc: HO.MAMMO Attending Dr: Sal Tabor CNM Ordering Physician: SAL TABOR CNM Results: 1 Negative Date of Service: 09/19/23 Follow Up: 1 Year From Orig inal Mammogram Procedure(s): MM tomosynthesis screening LT Accession Number(s): [id number] cc: SAL TABOR CNM EXAMINATION: MM SCREENING [...] in OV> 09/23/23 1004 DD/ 1235 TD/TT: High Scaler: Procedure Note Donotuseinterpreter, Image - 09/23/2023 [facility] [address] [place] [address] Mammography Report Signed Patient: Jodi SaenzMR#: [id number] : 1960Acct:[id number] Age/Sex: 62 / FADM Date: 09/19/23 Loc: BLAZE Attending Dr: Sal Tabor CNM Ordering Physician: SAL TABOResults: 1 Negative Date of Service: 09/19/23Follow Up: 1 Year From Orig inal Mammogram Procedure(s): MM tomosynthesis screening LT Accession Number(s): [id number] cc: SAL TABOR CNM EXAMINATION: MM SCREENING [...] in OV> 09/23/23 1004 DD/ 1235 TD/TT: High Scaler: Sal Tabor [facility] IM BI PROCEDURES Final R esult * THINPREP TIS PAP AND HPV mRNA E6/E7 WITH REFLEX TO HPV 16,18/45 (04/10/2022 11:22 AM EDT) Clinical Information: None given [facility] COMMENT SEE COMMENT [facility] ON [...] has been evaluated with computer assisted technology. [facility] Rotary Drill Operator Helper: SEE COMMENT [facility] Comment: SL, CT(ASCP) CT screening location: [place] [address] HPV nRNA E6/E7 Not Detected Not Detected [facility] Comment: Methodology: Dry Primer Powder Blender-Mediated Amplification This assay detects E6/E7 viral messenger RNA (mRNA) from 14 high-risk HPV types (16,18,31,33,35,39,45,51,52,56,58,59,66,68). Cervical sources are required for HPV testing. If a vaginal source from a patient who has had a total hysterectomy with removal of cervix was submitted, please contact the testing laboratory for alternative testing options. For additional information, please refer to http://education.[employer]/faq/VVG534e1 (This link if provided for information/ educational purposes only.) Interpretation/Res ult: SEE COMMENT [facility] Comment: Negative for intraepithelial lesion or malignancy. Atrophic pattern; predominantly parabasal cells LMP: NONE GIVEN [facility] Prev. BX: NONE [facility]IV[facility] Prev. PAP: 03/2019 NIL/NEG HYST 2 CHERELLE 2012 [facility] Review Rotary Drill Operator Helper: SEE COMMENT [facility] Comment: CONRAD, CT(ASCP) CT screening location: [place] [address] SOURCE: None given [facility] Statement Of Adequacy: SATISFACTORY FOR EVALUATION [facility] 04/10/2022 11:2 2 AM EDT Sal Tabor CNM LAB PATHOLOGY ORDERABLES Final Result Performing Organization Address [facility] Co de Phone Number [facility] [address] * MICROALBUMIN, RANDOM (05/31/2020 12:00 AM EST) Creatinine Urine 33.22 mg/dL [facility] Microalbum/Creati nine Ratio Ur TNP ug/mg cr [facility] Comment: Unable to calculate albumin/creatinine ratio due to low microalbumin or creatinine result. Microalbumin Urine <5.0 mg/L [facility] 05/31/2020 Historical Provider HISTORICAL/NON ORDERABLE LABS Final Result Performing Organization Address [facility] Co de Phone Number [facility] [address] * Hm Colonoscopy (11/24/2015 12:21 PM EDT) Historical Provider HEALTH MAINTENANCE Final Result from Last 3 Months or Most Recently Relevant to Health Maintenance Insurance [facility] Care Teams Blue Line Operator Relationship Specialty Start Date End Date Gordon Velez MD [address] [place] [phone] PCP - General Internal Medicine 11/30/19
--- OUTSIDE RECORDS SUMMARY | 2025-06-02 12:36 | XMS_ITS | Encounter Summary ---
Author Organization [employer] Address 75 [facility] 7t [place] [address] Care Team Providers Care Leasing Property Manager Name Role Phone Gordon Velez MD Primary Care Prov ider Reason for Visit * Reason Onset Date Comments Appointment Request 09/16/2023 Encounter Details Date Type Department Care Team ([facility] st Contact Info) Description 09/16/2023 Telephone [facility] MED[facility] [address] [place] [address] Gordon Velez MD [address] [place], [place] [phone] Appointment Request Social History Tobacco Use Types [...] t he electric, gas, oil or water [employer] threatened to shut off services in your [...] mammogram. Please contact pt if any questions: [phone] documented in this encounter Plan of Treatment Upcoming Encounters Date Type Department Care Team ([facility] st Contact Info) Description 06/04/2025 1:00 PM EST Office Visit [facility] MEDICINE [address] [place] [address] Homar Shields MD [address] [place] [address] 06/07/2025 1:00 PM EST Office Visit [facility]EDS [address] [place] [address] Homar Shields MD [address] [place] [address] 06/08/2025 1:30 PM EST Office Visit [facility] [address] [place] [address] Gordon Velez MD [address] [place] [address] documented as of this encounter Visit Diagnoses Not on filedocumented in this encounter Care Teams Leasing Property Manager Relationship Specialty Start Date End Date Gordon Velez MD 505 [place] [address] PCP - General Internal Medicine 11/30/19 documented as of this encounter
--- OUTSIDE RECORDS SUMMARY | 2025-06-02 12:36 | XMS_ITS | Encounter Summary ---
Author Organization [employer] Address 75 [facility] 7t [place] [address] Care Team Providers Care Leaf Stripper Name Role Phone Gordon Velez MD Primary Care Prov ider Reason for Visit * Reason Comments Med Refill Encounter Details Date Type Department Care Team (Late st Contact Info) Description 02/07/2025 Refill [facility] MED[facility] [address] [place] [address] Gordon Velez MD [address] [place], [place] [phone] Severe persistent asthma without complication Social History [...] Description 06/04/2025 1:00 PM EST Office Visit [facility] [address] [place] [address] Homar Shields MD [address] [place] [address] 06/07/2025 1:00 PM EST Office Visit [facility] & PEDS [address] [place] [address] Homar Shields MD [address] [place] [address] 06/08/2025 1:30 PM EST Office Visit [facility] [address] [place] [address] Gordon Velez MD 505 [place] [address] documented as of this encounter Visit Diagnoses Diagnosis Severe persistent asthma without complication (HCC) documented in this encounter Additional Health Concerns Assessment Noted Time PHQ-9 Depression Total Score: 5 10/17/19 25 10:16 AM EDT documented as of this encounter Care Teams Leaf Stripper Relationship Specialty Start Date End Date Gordon Velez MD [address] [place] [address] PCP - General Internal Medicine 11/30/19 documented as of this encounter
--- OUTSIDE RECORDS SUMMARY | 2025-06-02 12:36 | XMS_ITS | Encounter Summary ---
Author Organization [employer] Address [address] [place] [address] 7 [place] [address] Care Team Providers Care Senior Net Engineer Name Role Phone Gordon Velez MD Primary Care Prov ider Encounter Details Date Type Department Care Team (Late Contact Info) Description 02/11/2023 Orders Only [facility] MED[facility]INE [address] [place] [address] [phone] Shannan Greene LPN Social History Tobacco Use [...] Department Care Team (Late Contact Info) Description 06/04/2025 1:00 PM EST Office Visit [facility] MED[facility] [address] [place] [address] [phone] Homar Shields MD [address] [place] [address] [phone] 06/07/2025 1:00 PM EST Office Visit [facility] PEDS 505 [place], [place] [phone] Homar Shields MD [address] [place] [address] 06/08/2025 1:30 PM EST Office Visit [facility] PEDS 505 [place] [address] Gordon Velez MD 505 [place] [address] documented as of this encounter Visit Diagnoses Not on filedocumented in this encounter Care Teams Senior Net Engineer Relationship Specialty Start Date End Date Gordon Velez MD 505 [place] [address] PCP - General Internal Medicine 11/30/19 documented as of this encounter
--- OUTSIDE RECORDS SUMMARY | 2025-06-02 12:36 | XMS_ITS | Encounter Summary ---
Author Organization [employer] Address [address] [facility] 7 [place] [address] Care Team Providers Care Customer Contact Representative Name Role Phone Gordon Velez MD Primary Care Prov ider Reason for Visit * Reason Onset Date Comments Med Request 09/17/2024 Encounter Details Date Type Department Care Team ([facility] st Contact Info) Description 09/17/2024 Telephone [facility] MEDICINE [address] [place] [address] Gordon Velez MD [address] [place], [place] [phone] Med Request Social History Tobacco Use Types [...] AM EST Tc from pt requesting medication Hfcepdw-Jhyudwp-Vlrunr Collin (Medicated Pain Relieving) 1.2-5.7-6.3 % patch to be sent to [facility], pt inform she needs a better dosage for pain. documented in this encounter Plan of Treatment Upcoming Encounters Date Type Department Care Team (Late st Contact Info) Description 06/04/2025 1:00 PM EST Office Visit [facility] MEDICINE [address] [place] [address] Homar Shields MD 230 [place] [address] 06/07/2025 1:00 PM EST Office Visit [facility] [address] [place] [address] Homar Shields MD [address] [place] [address] 06/08/2025 1:30 PM EST Office Visit [facility] MED [facility] PEDS [address] [place] [address] Gordon Velez MD [address] [place] [address] documented as of this encounter Visit Diagnoses Not on filedocumented in this encounter Additional Health Concerns Assessment Noted Time PHQ-9 Depression Total Score: 18 024 1:56 PM EDT documented as of this encounter Care Teams Customer Contact Representative Relationship Specialty Start Date End Date Gordon Velez MD [address] [place] [address] PCP - General Internal Medicine 11/30/19 documented as of this encounter
--- OUTSIDE RECORDS SUMMARY | 2025-06-02 12:36 | XMS_ITS | Clinical Summary ---
Author Organization [facility] Address [address] [place] [address] Care Team Providers Care Sorority Mother Name Role Phone Verna Michael Mcclain Primary Care Provider + [phone] Allergies No known active allergies Medications traMADoL [...] patient's age to complete this topic Insurance [employer] [id number] Care Teams Sorority Mother Relationship Specialty Start Date End Date Michael Gillespie [address] [place] [address] ANTHAN Cortez [phone] PCP - General Internal Medicine 11/24/20
--- OUTSIDE RECORDS SUMMARY | 2025-06-02 12:36 | XMS_ITS | Encounter Summary ---
Author Organization [employer] Address [address] [facility] 7 [place] [address] Care Team Providers Care Disk Recoater Name Role Phone Gordon Velez MD Primary Care Prov ider Reason for Visit * Reason Onset Date Comments Referral 09/10/2023 Encounter Details Date Type Department Care Team ([facility] Contact Info) Description 09/10/2023 Telephone [facility] MED [facility] PEDS [address] [place] [address] Gordon Velez MD 505 [place] [address] Referral Social History Tobacco Use Types Packs/Day [...] Pt states Mammo can be sent to [facility]. Ordersent as requested. Pt then stated needing a referral to [facility] eye care for routine DM eye [...] requesting for eye referral flavia sent to [facility]. States she is not able to make an appointment due to office not having a referral. documented in this encounter Plan of Treatment Upcoming Encounters Date Type Department Care Team (Late st Contact Info) Description 06/04/2025 1:00 PM EST Office Visit [facility] MEDICINE 230 [place] [address] Homar Shields MD 230 [place] [address] 06/07/2025 1:00 PM EST Office Visit [facility] MED [facility] PEDS [address] [place] [address] Homar Shields MD 230 [place] [address] 06/08/2025 1:30 PM EST Office Visit [facility] MED & PEDS [address] [place] [address] Gordon Velez MD 505 [place] [address] documented as of this encounter Visit Diagnoses Diagnosis Type 2 diabetes mellitus without complication, without long-term current use of insulin (HCC) documented in this encounter Care Teams Disk Recoater Relationship Specialty Start Date End Date Gordon Velez MD 505 [place] [address] PCP - General Internal Medicine 11/30/19 documented as of this encounter
--- OUTSIDE RECORDS SUMMARY | 2025-06-02 12:36 | XMS_ITS | Encounter Summary ---
Author Organization [employer] Address 75 [facility] 7 [place] [address] Care Team Providers Care Evidence Specialist Name Role Phone Gordon Velez MD Primary Care Prov ider Reason for Visit * Reason Onset Date Comments Nurse Triage 01/28/2025 Encounter Details Date Type Department Care Team ([facility] st Contact Info) Description 01/28/2025 Telephone [facility] [address] [place] [address] Gordon Velez MD 505 [place] [address] Nurse Triage Social History Tobacco Use Types [...] * Telephone Encounter - Wayne Greco - 01/28/2025 1:31 PM EDT Symptom: Stools - Blood Mixed In Outcome: Talk to a nurse or provider within 15 minutes Reason: Large amount of blood The caller accepted this outcome. Contact pt at [phone] documented in this encounter Plan of Treatment Upcoming Encounters Date Type Department Care Team ([facility] st Contact Info) Description 06/04/2025 1:00 PM EST Office Visit [facility] MEDICINE [address] [place] [address] Homar Shields MD [address] [place] [address] 06/07/2025 1:00 PM EST Office Visit [facility] MED & PEDS [address] [place] [address] Homar Shields MD [address] [place] [address] 06/08/2025 1:30 PM EST Office Visit [facility] MED [facility] PEDS 505 [place] [address] Gordon Velez MD [address] [place] [address] documented as of this encounter Visit Diagnoses Not on filedocumented in this encounter Additional Health Concerns Assessment Noted Time PHQ-9 Depression Total Score: 5 10/17/19 25 10:16 AM EDT documented as of this encounter Care Teams Evidence Specialist Relationship Specialty Start Date End Date Gordon Velez MD [address] [place] [address] PCP - General Internal Medicine 11/30/19 documented as of this encounter
--- OUTSIDE RECORDS SUMMARY | 2025-06-02 12:36 | XMS_ITS | Encounter Summary ---
Author Organization [employer] Address 75 [facility] 7t [place] [address] Care Team Providers Care Product Scientist Name Role Phone Gordon Velez MD Primary Care Prov ider Encounter Details Date Type Department Care Team ([facility] st Contact Info) Description 11/08/2023 Orders Only [facility] MEDICINE 230 [place] [address] ProviderMarito MD Social History Tobacco Use Types [...] Description 06/04/2025 1:00 PM EST Office Visit [facility] MEDICINE 230 [place] [address] Homar Shields MD 230 [place] [address] 06/07/2025 1:00 PM EST Office Visit [facility] MED & PEDS 505 [place] [address] Homar Shields MD 230 [place] [address] 06/08/2025 1:30 PM EST Office Visit [facility] MED & PEDS 505 [place] [address] Gordon Velez MD 505 [place] [address] documented as of this encounter Procedures Procedure Name Priority Date/Time Associated Diagnosis Comments HM COLONOSCOPY Routine 11/24/2015 12:21 PM EDT documented in this encounter Results * Hm Colonoscopy (11/24/2015 12:21 PM EDT) Historical Provider HEALTH MAINTENANCE Final Result documented in this encounter Visit Diagnoses Not on filedocumented in this encounter Care Teams Product Scientist Relationship Specialty Start Date End Date Gordon Velez MD [address] [place] [address] PCP - General Internal Medicine 11/30/19 documented as of this encounter
--- OUTSIDE RECORDS SUMMARY | 2025-06-02 12:36 | XMS_ITS | Encounter Summary ---
Author Organization [email or web address] Address 75 [facility] 7t [place] [address] Care Team Providers Care Mine Shifter Name Role Phone Gordon Velez MD Primary Care Prov ider Reason for Visit * Reason Onset Date Comments New Med Request 01/24/2024 Encounter Details Date Type Department Care Team (Late st Contact Info) Description 01/24/2024 Telephone [facility] MEDICINE [address] [place] [address] Gordon Velez MD 505 [place], [place] [phone] New Med Request Social History Tobacco Use [...] Description 06/04/2025 1:00 PM EST Office Visit [facility] MEDICINE [address] [place] [address] Homar Shields MD [address] [place] [address] 06/07/2025 1:00 PM EST Office Visit [facility] MED & PEDS 505 [place] [address] Homar Shields MD 230 [place] [address] 06/08/2025 1:30 PM EST Office Visit [facility] MED & PEDS [address] [place] [address] Gordon Velez MD [address] [place] [address] documented as of this encounter Visit Diagnoses Not on filedocumented in this encounter Care Teams Mine Shifter Relationship Specialty Start Date End Date Gordon Velez MD [address] [place] [address] PCP - General Internal Medicine 11/30/19 documented as of this encounter
--- OUTSIDE RECORDS SUMMARY | 2025-06-02 12:36 | XMS_ITS | Encounter Summary ---
Author Organization [employer] Address 75 [facility] 7t [place] [address] Care Team Providers Care Linotyper Name Role Phone Gordon Velez MD Primary Care Prov ider Reason for Visit * Reason Onset Date Comments Nurse Triage 01/08/2025 Encounter Details Date Type Department Care Team ([facility] st Contact Info) Description 01/08/2025 Telephone [facility] MEDICINE 230 [place] [address] Gordon Velez MD [address] [place], [place] [phone] Nurse Triage Social History Tobacco Use Types [...] - 01/11/2025 9:45 AM EDT TC via die maker bench stamping. No answer. Unable to leave voicemail as mailbox is full. * Telephone Encounter - Lorrie Sheppard - 01/08/2025 3:42 PM EDT Tc from pt returning phone call. Mauritian * Telephone Encounter - Ofelia Grimes RN - 01/08/2025 2:38 PM EDT TC to pt to obtain blood sugars from home to assess glycemic control for provider information to determine refills. BLS harp regulator utilized. No ringing as call went straight to voicemail, voicemail box is not set up and unable to leave a voicemail. * Telephone Encounter - Leatha Gama RN - 01/08/2025 12:09 PM EDT Called pt. Via [facility] harp regulator [id number] Julio. Pt. States that she has been [...] higher acuity questions Please contact pt at [phone]. (Mauritian Speaker) documented in this encounter Plan of Treatment Upcoming Encounters Date Type Department Care Team ([facility] st Contact Info) Description 06/04/2025 1:00 PM EST Office Visit [facility] MEDICINE [address] [place] [address] Hmoar Shields MD [address] [place] [address] 06/07/2025 1:00 PM EST Office Visit [facility] MED & PEDS 505 [place] [address] Homar Shields MD [address] [place] [address] 06/08/2025 1:30 PM EST Office Visit [facility] MED & PEDS 505 [place] [address] Gordon Velez MD [address] [place] [address] documented as of this encounter Visit Diagnoses Not on filedocumented in this encounter Additional Health Concerns Assessment Noted Time PHQ-9 Depression Total Score: 5 10/17/19 25 10:16 AM EDT documented as of this encounter Care Teams Linotyper Relationship Specialty Start Date End Date Gordon Velez MD [address] [place] [address] PCP - General Internal Medicine 11/30/19 documented as of this encounter
--- OUTSIDE RECORDS SUMMARY | 2025-06-02 12:36 | XMS_ITS | Encounter Summary ---
Author Organization [employer] Address 75 [facility] 7 [place] [address] Care Team Providers Care Documentation Improvement Specialist Name Role Phone Gordon Velez MD Primary Care Prov ider Reason for Visit * Reason Comments Med Refill Encounter Details Date Type Department Care Team ([facility] st Contact Info) Description 08/13/2024 Refill [facility] MED & PEDS [address] [place], [place] [phone] Gordon Velez MD [address] [place] [address] Social History Tobacco Use Types Packs/Day Years [...] Description 06/04/2025 1:00 PM EST Office Visit [facility] MEDICINE [address] [place] [address] Homar Shields MD [address] [place] [address] 06/07/2025 1:00 PM EST Office Visit [facility] MED & PEDS 505 [place] [address] Homar Shields MD [address] [place] [address] 06/08/2025 1:30 PM EST Office Visit [facility] MED & PEDS 505 [place] [address] Gordon Velez MD [address] [place] [address] documented as of this encounter Visit Diagnoses Not on filedocumented in this encounter Additional Health Concerns Assessment Noted Time PHQ-9 Depression Total Score: 18 024 1:56 PM EDT documented as of this encounter Care Teams Documentation Improvement Specialist Relationship Specialty Start Date End Date Gordon Velez MD [address] [place] [address] PCP - General Internal Medicine 11/30/19 documented as of this encounter
--- OUTSIDE RECORDS SUMMARY | 2025-06-02 12:36 | XMS_ITS | Encounter Summary ---
Author Organization [employer] Address 75 [facility] 7 [place] [address] Care Team Providers Care Transit Mixer Driver Name Role Phone Gordon Velez MD Primary Care Prov ider Encounter Details Date Type Department Care Team (Late st Contact Info) Description 07/18/2022 Telephone [facility] CHC MED & PEDS [address] [place] [address] Gordon Velez MD 505 [place], [place] [phone] Social History Tobacco Use Types Packs/Day Years [...] Description 06/04/2025 1:00 PM EST Office Visit [facility] MEDICINE [address] [place], [place] [phone] Homar Shields MD [address] [place], [place] [phone] 06/07/2025 1:00 PM EST Office Visit [facility] MED & PEDS [address] [place] [address] Homar Shields MD [address] [place] [address] 06/08/2025 1:30 PM EST Office Visit [facility] MED & PEDS [address] [place] [address] Gordon Velez MD 505 [place] [address] documented as of this encounter Visit Diagnoses Not on filedocumented in this encounter Care Teams Transit Mixer Driver Relationship Specialty Start Date End Date Gordon Velez MD 505 [place] [address] PCP - General Internal Medicine 11/30/19 documented as of this encounter
--- OUTSIDE RECORDS SUMMARY | 2025-06-02 12:36 | XMS_ITS | Encounter Summary ---
Author Organization [employer] Address 75 [facility] 7 [place] [address] Care Team Providers Care Precinct Captain Name Role Phone Gordon Velez MD Primary Care Prov ider Reason for Visit * Reason Onset Date Comments Appointment Request 02/15/2023 Encounter Details Date Type Department Care Team ([facility] st Contact Info) Description 02/15/[address] [facility] CHC MED & PEDS 505 [place], [place] [phone] Gordon Velez MD [address] [place] [address] Appointment Request Social History Tobacco Use Types [...] requesting to r/s appt from 02/15/23. Details: [facility] f/up 01/14- r/s Patient speaks guyanese. documented in this encounter Plan of Treatment Upcoming Encounters Date Type Department Care Team (Late st Contact Info) Description 06/04/2025 1:00 PM EST Office [facility] MEDICINE [address] [place] [address] Homar Shields MD [address] [place] [address] 06/07/2025 1:00 PM EST Office Visit [facility] MED & PEDS 505 [place] [address] Homar Shields MD [address] [place] [address] 06/08/2025 1:30 PM EST Office Visit [facility] MED & PEDS [address] [place] [address] Gordon Velez MD [address] [place] [address] documented as of this encounter Visit Diagnoses Not on filedocumented in this encounter Care Teams Precinct Captain Relationship Specialty Start Date End Date Gordon Velez MD [address] [place] [address] PCP - General Internal Medicine 11/30/19 documented as of this encounter
--- OUTSIDE RECORDS SUMMARY | 2025-06-02 12:36 | XMS_ITS | Encounter Summary ---
Author Organization [employer] Address 75 [facility] 7t [place] [address] Care Team Providers Care Boilermaker Mechanic Name Role Phone Gordon Velez MD Primary Care Prov ider Encounter Details Date Type Department Care Team ([facility] st Contact Info) Description 08/21/2023 Orders Only [facility] CHC MED & PEDS [address] [place] [address] Gordon Velez MD 505 [place] [address] Social History Tobacco Use Types Packs/Day Years [...] Description 06/04/2025 1:00 PM EST Office Visit [facility] MEDICINE [address] [place] [address] Homar Shields MD 230 [place] [address] 06/07/2025 1:00 PM EST Office Visit [facility] MED & PEDS 505 [place] [address] Homar Shields MD 230 [place] [address] 06/08/2025 1:30 PM EST Office Visit [facility] CHC MED & PEDS [address] [place] [address] Gordon Velez MD 505 [place] [address] documented as of this encounter Visit Diagnoses Not on filedocumented in this encounter Care Teams Boilermaker Mechanic Relationship Specialty Start Date End Date Gordon Velez MD 505 [place] [address] PCP - General Internal Medicine 11/30/19 documented as of this encounter
--- OUTSIDE RECORDS SUMMARY | 2025-06-02 12:36 | XMS_ITS | Encounter Summary ---
Author Organization [employer] Address 75 [facility] 7 [place] [address] Care Team Providers Care Telecine Operator Name Role Phone Gordon Velez MD Primary Care Prov ider Reason for Visit * Reason Onset Date Comments Med Refill 05/06/2025 Encounter Details Date Type Department Care Team ([facility] st Contact Info) Description 05/06/2025 Telephone [facility] CHC MED & PEDS [address] [place] [address] Gordon Velez MD 505 [place] [address] Med Refill Social History Tobacco Use Types [...] Telephone Encounter - Katey Campos LPN - 05/06/2025 10:58 AM EDT Medication pended to PCP. * Telephone Encounter - Brendan Youngblood - 05/06/2025 10:56 AM EDT TC from pt requesting medication refill. Medications needing refill : albuterol 108 (90 Base) MCG/ACT inhaler To be sent to: [facility] [place] - [address] documented in this encounter Plan of Treatment Upcoming Encounters Date Type Department Care Team (Late st Contact Info) Description 06/04/2025 1:00 PM EST Office Visit [facility] MEDICINE 230 [place] [address] Homar Shields MD 230 [place] [address] 06/07/2025 1:00 PM EST Office Visit [facility] CHC MED & PEDS [address] [place], [place] [phone] Homar Shields MD [address] [place], [place] [phone] 06/08/2025 1:30 PM EST Office Visit [facility] MED & PEDS [address] [place], [place] [phone] Gordon Velez MD [address] [place], [place] [phone] documented as of this encounter Goals Goal Patient Goal Type Associated Problems Recent Progress Patient-Stated? Author Enhanced ability to interact with others without suspicion or defensiveness General Helen Baez, DENISHA documented as of this encounter Visit Diagnoses Not on filedocumented in this encounter Additional Health Concerns Assessment Noted Time PHQ-9 Depression Total Score: 5 10/17/19 25 10:16 AM EDT documented as of this encounter Care Teams Telecine Operator Relationship Specialty Start Date End Date Gordon Velez MD [address] [place] [address] PCP - General Internal Medicine 11/30/19 documented as of this encounter
--- OUTSIDE RECORDS SUMMARY | 2025-06-02 12:36 | XMS_ITS | Encounter Summary ---
Author Organization [employer] Address 75 [facility] 7t [place] [address] Care Team Providers Care Fashion Stylist Name Role Phone Gordon Velez MD Primary Care Prov ider Encounter Details Date Type Department Care Team ([facility] st Contact Info) Description 05/13/2024 Orders Only [facility] CHC MED & PEDS [address] [place], [place] [phone] Gordon Velez MD 505 [place] [address] Social History Tobacco Use Types Packs/Day Years [...] Upcoming Encounters Date Type Department Care Team ([facility] st Contact Info) Description 06/04/2025 1:00 PM EST Office Visit [facility] MEDICINE [address] [place] [address] Homar Shields MD [address] [place] [address] 06/07/2025 1:00 PM EST Office Visit [facility] MED & PEDS [address] [place] [address] Homar Shields MD [address] [place] [address] 06/08/2025 1:30 PM EST Office Visit [facility] MED & PEDS [address] [place] [address] Gordon Velez MD [address] [place] [address] documented as of this encounter Procedures Procedure Name Priority Date/Time Associated Diagnosis Comments TSH Routine 05/13/2024 2:24 PM EDT T4, FREE Routine 05/13/2024 2:24 PM EDT documented in this encounter Results * T4, Free (05/13/2024 2:24 PM EDT) Free T4 (Free Thyroxine) 0.98 0.71 - 1.85 ng/dL [facility] 05/13/2024 2:24 PM EDT 05/13/2024 5:31 PM EDT us Generic External Data Provider LAB BLOOD ORDERAB LES Final Result Performing Organization Address [facility] Co de Phone Number [facility] [address] [place] [address] [phone] * (ABNORMAL) TSH (05/13/2024 2:24 PM EDT) Thyroid Stimulating Hormone 0.20(L) 0.32 - 4.0 uIU/mL [facility] Comment:TSH 3rd Generation ( [facility]) 05/13/2024 2:24 PM EDT 05/13/2024 5:31 PM EDT us Generic External Data Provider LAB BLOOD ORDERAB LES Final Result Performing Organization Address [facility] de Phone Number [facility] [address] [place] [phone] documented in this encounter Visit Diagnoses Not on filedocumented in this encounter Additional Health Concerns Assessment Noted Time PHQ-9 Depression Total Score: 18 024 1:56 PM EDT documented as of this encounter Care Teams Fashion Stylist Relationship Specialty Start Date End Date Gordon Velez MD [address] [place] [address] PCP - General Internal Medicine 11/30/19 documented as of this encounter
--- OUTSIDE RECORDS SUMMARY | 2025-06-02 12:36 | XMS_ITS | Clinical Summary ---
Author Organization [address] [facility] Address [address] [place] [address] Phone Care Team Providers Care Psychological Operations Officer Name Role Phone Gordon Velez Primary Care [...] propionate (FLONASE) 50 mcg/actuation nasal spray 1 [place] by Each Nare route 2 times daily. [...] Diagnosed Date T2DM (type 2 diabetes mellitus) ([facility] V24, [facility] S/[facility] V28) 06/01/2024 Hyperlipidemia associated wi th type 2 diabetes mellitus ([facility] V24, [facility] V28) 06/01/2024 Social History Tobacco Use Types [...] Risk Assessment 10/11/2024 COVID-19 Vaccine (1 - 2024-2 6 season) 2025 Influenza Vaccine (#1) 2025 RSV [...] topic Insurance MEDICAID - [place] Care Teams Psychological Operations Officer Relationship Specialty Start Date End Date Gordon Velez 505 [place], [place] [phone] PCP - General Internal Medicine 05/15/24
--- OUTSIDE RECORDS SUMMARY | 2025-06-02 12:36 | XMS_ITS | Encounter Summary ---
Author Organization [employer] Address 75 [facility] 7t [place] [address] Care Team Providers Care Manager Location Name Role Phone Gordon eVlez MD Primary Care Prov ider Reason for Visit * Reason Onset Date Comments Med Refill 04/27/2025 Encounter Details Date Type Department Care Team (Late st Contact Info) Description 04/27/2025 Refill [facility] MEDICINE [address] [place], [place] [phone] Helen Jeffery RN Uncomplicated opioid dependence (CMS/HCC) [...] 1:00 PM EST Office Visit [facility] MEDICINE [address] [place] [address] Homar Shields MD [address] [place] [address] 06/07/2025 1:00 PM EST Office Visit [facility] CHC MED & PEDS [address] [place] [address] Homar Shields MD [address] [place] [address] 06/08/2025 1:30 PM EST Office Visit [facility] CHC MED & PEDS [address] [place] [address] Gordon Velez MD 505 [place] [address] documented as of this encounter Goals Goal [...] documented as of this encounter Care Teams Manager Location Relationship Specialty Start Date End Date Gordon Velez MD [address] [place] [address] PCP - General Internal Medicine 11/30/19 documented as of this encounter
--- OUTSIDE RECORDS SUMMARY | 2025-06-02 12:36 | XMS_ITS | Encounter Summary ---
Author Organization [employer] Address 75 [facility] 7 [place] [address] Care Team Providers Care Avionics Mechanic Name Role Phone Gordon Velez MD Primary Care Prov ider Reason for Visit * Reason Onset Date Comments Error 12/10/2024 Encounter Details Date Type Department Care Team ([facility] st Contact Info) Description 12/10/2024 Telephone [facility] MEDICINE [address] [place] [address] Gordon Velez MD 505 [place], [place] [phone] Error Social History Tobacco Use Types Packs/Day [...] 1:00 PM EST Office Visit [facility] MEDICINE [address] [place] [address] Homar Shields MD [address] [place] [address] 06/07/2025 1:00 PM EST Office Visit [facility] MED & PEDS [address] [place] [address] Homar Shields MD [address] [place] [address] 06/08/2025 1:30 PM EST Office Visit [facility] MED & PEDS [address] [place] [address] Gordon Velez MD 505 [place] [address] documented as of this encounter Visit Diagnoses Not on filedocumented in this encounter Additional Health Concerns Assessment Noted Time PHQ-9 Depression Total Score: 5 10/17/19 25 10:16 AM EDT documented as of this encounter Care Teams Avionics Mechanic Relationship Specialty Start Date End Date Gordon Velez MD [address] [place] [phone] PCP - General Internal Medicine 11/30/19 documented as of this encounter
--- OUTSIDE RECORDS SUMMARY | 2025-06-02 12:36 | XMS_ITS | Encounter Summary ---
Author Organization [employer] Address 75 [facility] 7 [place] [address] Care Team Providers Care Platform Beater Name Role Phone Gordon Velez MD Primary Care Prov ider Reason for Visit * Reason Onset Date Comments PT1 02/04/2025 Encounter Details Date Type Department Care Team ([facility] Contact Info) Description 02/04/2025 Telephone [facility] CHC MED & PEDS 505 [place] [address] Gordon Velez MD 505 [place] [address] PT1 Social History Tobacco Use Types Packs/Day [...] Y/N: Yes Provider name or facility name: [facility] Escort needed: Y/N: No Do you have a wheelchair: Y/N: No Visits: (2x month) documented in this encounter Plan of Treatment Upcoming Encounters Date Type Department Care Team (Late st Contact Info) Description 06/04/2025 1:00 PM EST Office Visit [facility] MEDICINE [address] [place] [address] Homar Shields MD [address] [place] [address] 06/07/2025 1:00 PM EST Office Visit [facility] MED & PEDS [address] [place] [address] Homar Shields MD [address] [place] [address] 06/08/2025 1:30 PM EST Office Visit [facility] MED & PEDS 505 [place] [address] Gordon Velez MD 505 [place] [address] documented as of this encounter Visit Diagnoses Not on filedocumented in this encounter Additional Health Concerns Assessment Noted Time PHQ-9 Depression Total Score: 5 10/17/19 25 10:16 AM EDT documented as of this encounter Care Teams Platform Beater Relationship Specialty Start Date End Date Gordon Velez MD 505 [place] [address] PCP - General Internal Medicine 11/30/19 documented as of this encounter
--- OUTSIDE RECORDS SUMMARY | 2025-06-02 12:36 | XMS_ITS | Encounter Summary ---
Author Organization [employer] Address 75 [facility] 7t [place] [address] Care Team Providers Care Planning And Analysis Manager Name Role Phone Gordon Velez MD Primary Care Prov ider Reason for Visit * Reason Onset Date Comments Referral 09/24/2023 Encounter Details Date Type Department Care Team ([facility] st Contact Info) Description 09/24/2023 Telephone [facility] MEDICINE [address] [place] [address] Gordon Velez MD [address] [place], [place] [phone] Referral Social History Tobacco Use Types Packs/Day [...] the past 12 months, has t he [employer], [employer], oil or water [employer] threatened to shut off services in your [...] was referred last month to GI at [facility]. Pt will be contacted when appts become available from their office. * Telephone Encounter - Macario Segura - 09/24/2023 12:52 PM EST TC from pt requesting new referral : DATE: N/A TIME:N/A Address: [address] [place] [address] Dr [address] Floor, [place] [address] Visits: N/A Facility Name: [facility] Type of Specialist: Gastroenterologists Phone # : [phone] Pt is requesting referral for a colonoscopy stated no concerns. If any questions you can contact pt at [phone] documented in this encounter Plan of Treatment Upcoming Encounters Date Type Department Care Team ([facility] st Contact Info) Description 06/04/2025 1:00 PM EST Office Visit [facility] MEDICINE [address] [place] [address] Homar Shields MD [address] [place] [address] 06/07/2025 1:00 PM EST Office Visit [facility] CHC MED & PEDS 505 [place] [address] Homar Shields MD [address] [place] [address] 06/08/2025 1:30 PM EST Office Visit [facility] MED & PEDS 505 [place] [address] Gordon Velez MD 505 [place] [address] documented as of this encounter Visit Diagnoses Not on filedocumented in this encounter Care Teams Planning And Analysis Manager Relationship Specialty Start Date End Date Gordon Velez MD [address] [place] [address] PCP - General Internal Medicine 11/30/19 documented as of this encounter
--- OUTSIDE RECORDS SUMMARY | 2025-06-02 12:36 | XMS_ITS | Encounter Summary ---
Author Organization [employer] Address 75 [facility] 7t [place] [address] Care Team Providers Care Ship Pilot Dispatcher Name Role Phone Gordon Velez MD Primary Care Prov ider Reason for Visit * Reason Onset Date Comments Nurse Triage 01/18/2025 Encounter Details Date Type Department Care Team ([facility] st Contact Info) Description 01/18/2025 Telephone [facility] MEDICINE 230 [place] [address] Gordon Velez MD [address] [place], [place] [phone] Nurse Triage Social History Tobacco Use Types [...] 01/18/2025 10:29 AM EDT Triage call with [facility] pest control service representative , [place] [id number], Called Pt number [phone] x. Call would connect and fail. Unable to reach Pt. * Telephone Encounter - Macario Segura - 01/18/2025 10:11 AM EDT Symptom: Hip Pain - Not From Injury Outcome: Schedule an appointment to be seen within 24 hours Reason: Caller denied all higher acuity questions Please contact pt at [phone]. (Macedonian Speaker) documented in this encounter Plan of Treatment Upcoming Encounters Date Type Department Care Team (Late st Contact Info) Description 06/04/2025 1:00 PM EST Office Visit [facility] MEDICINE [address] [place] [address] Homar Shields MD [address] [place] [address] 06/07/2025 1:00 PM EST Office Visit [facility] MED & PEDS [address] [place] [address] Homar Shields MD 230 [place] [address] 06/08/2025 1:30 PM EST Office Visit [facility] MED & PEDS [address] [place] [address] Gordon Velez MD [address] [place] [address] documented as of this encounter Visit Diagnoses Not on filedocumented in this encounter Additional Health Concerns Assessment Noted Time PHQ-9 Depression Total Score: 5 10/17/19 25 10:16 AM EDT documented as of this encounter Care Teams Ship Pilot Dispatcher Relationship Specialty Start Date End Date Gordon Velez MD 505 [place] [address] PCP - General Internal Medicine 11/30/19 documented as of this encounter
--- OUTSIDE RECORDS SUMMARY | 2025-06-02 12:36 | XMS_ITS | Encounter Summary ---
Author Organization [employer] Address [address] [place] [address] 7t [place] [address] Care Team Providers Care Cd Technician Name Role Phone Gordon Velez MD Primary Care Prov ider Encounter Details Date Type Department Care Team (Late st Contact Info) Description 07/10/2022 Orders Only [facility] MED & PEDS [address] [place] [address] Katey Campos LPN Social History Tobacco Use [...] Description 06/04/2025 1:00 PM EST Office Visit [facility] MEDICINE [address] [place] [phone] Homar Shields MD [address] [place] [phone] 06/07/2025 1:00 PM EST Office Visit [facility] MED [facility] PEDS [address] [place] [address] Homar Shields MD [address] [place] [phone] 06/08/2025 1:30 PM EST Office Visit [facility] PEDS [address] [place] [address] Gordon Velez MD [address] [place] [address] documented as of this encounter Procedures Procedure [...] AM EDT) Thyroglobulin Antibody <1 <=1 IU/mL [facility] Comment:This Thyroglobulin a ntibody test was performedusing the [employer] [place] Chemiluminescent method.Values obtained from different assay methods cannot beused interchangeably. Thyroglobulin antibody levels,regardless of value, should not be interpreted asabsolute evidence of the presence or absence ofdisease. Thyroglobulin, LC/MS/MS TNP [facility] Thyroglobulin Level 0.5(A) ng/mL [facility] Comment:Reference Range: Ath yrotic: <0.1 ng/mLReference range applies to differentiated thyroidcancer patients following treatment. The presence ofmeasurable thyroglobulin indicates the presence ofthyroglobulin-producing thyroid tissue. Clinicalcorrelation is advised.This Thyroglobulin test was performed using thePayPal Chemiluminescent method. Valuesobtained from different assay methods cannot beused interchangeably. Thyroglobulin levels, regardlessof value, should not be interpreted as absoluteevidence of the presence or absence of disease.THIS TEST WAS PERFORMED AT:[employer] [id number] [place] [address]IEJZRKHEDVIN REID MD,PHD 11/13/2022 11:2 9 AM EDT 11/13/2022 11:29 AM EDT us [facility] External Provider LAB BLO OD ORDERABLES Final Result [facility] [address] [place] [phone] * (ABNORMAL) TSH (11/13/2022 11:29 AM EDT) Thyroid Stimulating Hormone 24.45(H) 0.32 - 4.0 uIU/mL [facility] Comment:Note: A sustained TS H level above 2.5 uIU/mL may warrant further investigation. TSH 3rd Generation ([facility]) 11/13/2022 11:2 9 AM EDT 11/13/2022 11:29 AM EDT [facility] External Provider LAB BLO OD ORDERABLES Final Result Performing Organization Address [facility] Co de Phone Number [facility] [address] [place] [phone] * (ABNORMAL) T4, Free (11/13/2022 11:29 AM EDT) Free T4 (Free Thyroxine) <0.42(L) 0.71 - 1.85 ng/dL [facility] 11/13/2022 11:2 9 AM EDT 11/13/2022 11:29 AM EDT [facility] External Provider LAB BLO OD ORDERABLES Final Result Performing Organization Address [facility] de Phone Number [facility] [address] [place] [phone] * (ABNORMAL) Thyroblobulin, Tumor Marker w/Reflex (11/08/2022 1:14 PM EDT) Thyroglobulin Antibody <1 <=1 IU/mL [facility] Comment:This Thyroglobulin a ntibody test was performedusing the [employer] Chemiluminescent method.Values obtained from different assay methods cannot beused interchangeably. Thyroglobulin antibody levels,regardless of value, should not be interpreted asabsolute evidence of the presence or absence ofdisease. Thyroglobulin, LC/MS/MS TNP [facility] Thyroglobulin Level 0.3(A) ng/mL [facility] Comment:Reference Range: Ath yrotic: <0.1 ng/mLReference range applies to differentiated thyroidcancer patients following treatment. The presence ofmeasurable thyroglobulin indicates the presence ofthyroglobulin-producing thyroid tissue. Clinicalcorrelation is advised.This Thyroglobulin test was performed using thePayPal Chemiluminescent method. Valuesobtained from different assay methods cannot beused interchangeably. Thyroglobulin levels, regardlessof value, should not be interpreted as absoluteevidence of the presence or absence of disease.THIS TEST WAS PERFORMED AT:[id number] [place] [address]GQOUJKCEDVIN REID MD,PHD 11/08/2022 1:14 PM EDT 11/08/2022 1:14 PM EDT [facility] External Provider LAB BLO OD ORDERABLES Final Result Performing Organization Address [facility] Co de Phone Number [facility] [address] [place] [phone] * (ABNORMAL) TSH (11/08/2022 1:14 PM EDT) Thyroid Stimulating Hormone 8.44(H) 0.32 - 4.0 uIU/mL [facility] Comment:Note: A sustained TS H level above 2.5 uIU/mL may warrant further investigation. TSH 3rd Generation ([facility]) 11/08/2022 1:14 PM EDT 11/08/2022 1:14 PM EDT [facility] External Provider LAB BLO OD ORDERABLES Final Result Performing Organization Address [facility] de Phone Number [facility] [address] [place] [phone] * (ABNORMAL) T4, Free (11/08/2022 1:14 PM EDT) Free T4 (Free Thyroxine) <0.42(L) 0.71 - 1.85 ng/dL [facility] 11/08/2022 1:14 PM EDT 11/08/2022 1:14 PM EDT [facility] External Provider LAB BLO OD ORDERABLES Final Result Performing Organization Address [facility] Co de Phone Number [facility] [address] [place] [address] [phone] * (ABNORMAL) Sed Rate by Modified Westergren (10/22/2022 10:13 AM EDT) Erythrocyte Sedimentation Rate 26(H) 0 - 20 MM/HR [facility] Comment:Patients with polycy themia and many hemoglobin abnormalitiesmay have depressed sed rates whereas patients with anemiamay have elevated sed rates. 10/22/2022 10:1 3 AM EDT 10/22/2022 10:13 AM EDT [facility] External Provider LAB BLO OD ORDERABLES Final Result Performing Organization Address [facility] Co de Phone Number [facility] [address] [place] [phone] * (ABNORMAL) C-reactive Protein (10/22/2022 10:13 AM EDT) C Reactive Protein 1.98(H) < or = 0.50 mg/dL [facility] 10/22/2022 10:1 3 AM EDT 10/22/2022 10:13 AM EDT [facility] External Provider LAB BLO OD ORDERABLES Final Result Performing Organization Address [facility] Co de Phone Number [facility] [address] [place] [phone] * ALT (10/22/2022 10:13 AM EDT) Alanine Aminotransferase 18 0 - 31 U/L [facility] 10/22/2022 10:1 3 AM EDT 10/22/2022 10:13 AM EDT [facility] External Provider LAB BLO OD ORDERABLES Final Result Performing Organization Address [facility] Co de Phone Number [facility] [address] [place] [phone] [phone] * AST (10/22/2022 10:13 AM EDT) Aspartate Amino Transferase 20 5 - 31 U/L [facility] 10/22/2022 10:1 3 AM EDT 10/22/2022 10:13 AM EDT [facility] External Provider LAB BLO OD ORDERABLES Final Result Performing Organization Address [facility] Co de Phone Number [facility] [address] [place] [phone] [phone] * Creatinine, Serum (10/22/2022 10:13 AM EDT) Creatinine, Serum 0.76 0.5 - 1.4 mg/dL [facility] Estimated Glomerular Filt Rate >60 [facility] Comment:NOTE: For -Am erican individuals, multiply the result by 1.210.Chronic Kidney Disease: Estimated GFR < 60 mL/min/1.04j8Tryipw Kidney Disease: Estimated GFR < 15 mL/min/1.73m2 10/22/2022 10:1 3 AM EDT 10/22/2022 10:13 AM EDT [facility] External Provider LAB BLO OD ORDERABLES Final Result Performing Organization Address [facility] Co de Phone Number [facility] [address] [place] [address] [phone] * Tramadol, urine (10/22/2022 10:12 AM EDT) Tramadol, Ur >[address]358 [facility] Comment: Report Name Results Units Reference Range SiteDRUG MONITOR, TRAMADOL, QN, URINE [id number]: >44340 (H)ng/mL <100Tramadol: >46733 (H)ng/mL <100Tramadol Comments: See Tramadol Notes, LDT NotesDRUG MONITORING TEMPLATE [id number] and Comments:This drug testing is for medical treatment only.Analysis was performed as non-forensic testing andthese results should be used only by healthcareproviders to render diagnosis or treatment, or tomonitor progress of medical conditions.Tramadol Notes:Tramadol, Desmethyltramadol detected is consistent withthe use of the drug Tramadol.LDT Notes:Confirmation tests were developed and their analyticalperformance characteristics have been determined by[employer] [facility]. It has not been cleared or approvedby the FDA. This assay has been validated pursuant tothe CLIA regulations and is used for clinical purposes.Healthcare Providers needing Interpretation assistance,please contact us at [phone] ( )M- F, 8am to 10pm ESTSite InformationNL1:[employer] [place] [id number] Laboratory Director: Shekhar Pierre M.D. Desmethyltramadol, Ur >27136 [facility] 10/22/2022 10:1 2 AM EDT 10/22/2022 10:38 AM EDT [facility] External Provider LAB URI NE ORDERABLES Final Result [facility] [address] [place] [phone] * (ABNORMAL) Drug Monitoring, Panel 1, Screen, Urine (10/22/2022 10:12 AM EDT) Opiate Screen Urine Not Detected Not Detect [facility] Comment:Opiate cut-off is 30 0 ng/mL.Positive results are unconfirmed and should not be used fornon-medical purposes. Barbiturates, Urine Not Detected Not Detect [facility] Comment:Barbiturate cut-off is 200 ng/mL.Positive results are unconfirmed and should not be used fornon-medical purposes. Phencyclidine Screen Urine Not Detected Not Detect [facility] Comment:Phencyclidine cut-of f is 25 ng/mL.Positive results are unconfirmed and should not be used fornon-medical purposes. Amphetamine Screen Urine Not Detected Not Detect [facility] Comment:Amphetamine cut-off is 1000 ng/mL.Positive results are unconfirmed and should not be used fornon-medical purposes. Benzodiazepines Screen Urine POSITIVE(A) Not Detect [facility] Comment:Benzodiazepine cut-o ff is 200 ng/mL.Positive results are unconfirmed and should not be used fornon-medical purposes. Cocaine Screen Urine Not Detected Not Detect [facility] Comment:Cocaine cut-off is 3 00 ng/mL.Positive results are unconfirmed and should not be used fornon-medical purposes. Cannabinoid Screen Urine POSITIVE(A) Not Detect [facility] Comment:Cannabinoid cut-off is 50 ng/mL.Positive results are unconfirmed and should not be used fornon-medical purposes. FENTANYL URINE POSITIVE(A) Not Detect [facility] Comment:Fentanyl cut-off is 1 ng/mL.Positive results are unconfirmed and should not be used fornon-medical purposes. 10/22/2022 10:1 2 AM EDT 10/22/2022 10:34 AM EDT [facility] External Provider LAB URI NE ORDERABLES Final Result [facility] [address] [place] [phone] * (ABNORMAL) Comprehensive Metabolic Panel (09/27/2022 2:11 PM EST) Sodium 141 135 - 145 mmol/L [facility] Potassium 4.3 3.3 - 5.1 mmol/L [facility] Chloride 104 96 - 108 mmol/L [facility] Carbon Dioxide 30(H) 22 - 29 mmol/L [facility] Anion Gap 11(L) 12 - 20 [facility] Urea Nitrogen (BUN) 13 9 - 16 mg/dL [facility] Creatinine, Serum 0.73 0.5 - 1.4 mg/dL [facility] Creatinine Clr Calc Pharmacy 73.6 [facility] Comment:Provided height and weight: 157.48 cm,70.76 kg.eGFR (calculated from the MDRD study equation) and eCrCl(calculated from the Cockcroft-Gault equation) are based ondifferent parameters and may not yield comparable results.If eCrCl result is absurd, please check patient'sheight/weight. Estimated Glomerular Filt Rate >60 [facility] Comment:NOTE: For -Am erican individuals, multiply the result by 1.210.Chronic Kidney Disease: Estimated GFR < 60 mL/min/1.05w5Mtcnaz Kidney Disease: Estimated GFR < 15 mL/min/1.73m2 Glucose 90 60 - 115 mg/dL [facility] Calcium 8.8 8.4 - 10.2 mg/dL [facility] Bilirubin, Total 0.4 0.0 - 1.0 mg/dL [facility] Aspartate Amino Transferase 25 5 - 31 U/L [facility] Alanine Aminotransferase 20 0 - 31 U/L [facility] Total Protein 6.7 6.5 - 8.0 g/dL [facility] Albumin Level 4.1 3.5 - 5.0 g/dL [facility] Alkaline Phosphatase 71 39 - 117 U/L [facility] 09/27/2022 2:11 PM EST 09/27/2022 2:14 PM EST [facility] External Provider LAB BLO OD ORDERABLES Final Result [facility] [address] [place] [phone] * (ABNORMAL) CBC auto differential (09/27/2022 2:11 PM EST) White Blood Count 7.5 4.8 - 10.8 X10*3/uL [facility] Red Blood Count 4.42 4.20 - 5.50 X10*6/uL [facility] Hemoglobin 12.4 12.0 - 16.0 g/dl [facility] Hematocrit 36.9(L) 37.0 - 47.0 % [facility] Mean Corpuscular Volume 83.5 80.0 - 98.0 fL [facility] Mean Corpuscular Hemoglobin 28.1 27.0 - 33.0 pg [facility] Mean Corpuscular HGB Conc 33.6 31.0 - 35.0 g/dl [facility] Red Cell Distribution Width 12.5 11.0 - 16.0 % [facility] Platelet Count 139(L) 160 - 400 X10*3/uL [facility] Mean Platelet Volume 12.0 9.4 - 12.3 fL [facility] Neutrophils Percent Auto 54.6 45 - 73 % [facility] Imm Gran Pct Auto 0.4 0.0 - 0.4 % [facility] Lymphocytes Percent Auto 28.7 20 - 40 % [facility] Monocytes Percent Auto 8.3 2 - 11 % [facility] Eosinophils Percent Auto 7.3(H) 0 - 4 % [facility] Basophils Percent Auto 0.7 0 - 2 % [facility] NRBC Pct Auto 0.0 0.0 - 0.2 /100WBC [facility] Neutrophils Absolute Auto 4.1 2.0 - 8.3 x10*3/uL [facility] Imm Gran Abs Auto 0.03 0.00 - 0.03 X10*3/uL [facility] Lymphocytes Absolute Auto 2.2 1.2 - 4.9 X10*3/uL [facility] Monocytes Absolute Auto 0.6 0.1 - 1.2 X10*3/uL [facility] Eosinophils Absolute Auto 0.6(H) 0.0 - 0.4 X10*3/uL [facility] Basophils Absolute Auto 0.1 0.0 - 0.2 X10*3/uL [facility] NRBC Abs Auto 0.000 0.0 - 0.012 X10*3/uL [facility] 09/27/2022 2:11 PM EST 09/27/2022 2:14 PM EST us [facility] External Provider LAB BLO OD ORDERABLES Final Result [facility] [address] [place] [phone] documented in this encounter Visit Diagnoses Not on filedocumented in this encounter Care Teams Cd Technician Relationship Specialty Start Date End Date Gordon Velez MD [address] [place] [phone] PCP - General Internal Medicine 11/30/19 documented as of this encounter
--- OUTSIDE RECORDS SUMMARY | 2025-06-02 12:36 | XMS_ITS | Encounter Summary ---
Author Organization [employer] Address [address] [facility] 7 [place] [address] Care Team Providers Care Dietary Manager Name Role Phone Gordon Velez MD Primary Care Prov ider Reason for Visit * Reason Onset Date Comments Appointment Request 02/04/2025 Encounter Details Date Type Department Care Team ([facility] Contact Info) Description 02/04/2025 Telephone [facility] MED & PEDS [address] [place] [address] Gordon Velez MD [address] [place] [address] Appointment Request Social History Tobacco Use Types [...] be scheduled in mar. Contact pt at [phone] documented in this encounter Plan of Treatment Upcoming Encounters Date Type Department Care Team (Late st Contact Info) Description 06/04/2025 1:00 PM EST Office Visit [facility] MEDICINE [address] [place] [phone] Homar Shields MD [address] [place] [phone] 06/07/2025 1:00 PM EST Office Visit [facility] MED & PEDS [address] [place] [address] Homar Shields MD [address] [place] [phone] 06/08/2025 1:30 PM EST Office Visit [facility] MED & PEDS [address] [place] [address] Gordon Velez MD [address] [place] [address] documented as of this encounter Visit Diagnoses Not on filedocumented in this encounter Additional Health Concerns Assessment Noted Time PHQ-9 Depression Total Score: 5 10/17/19 25 10:16 AM EDT documented as of this encounter Care Teams Dietary Manager Relationship Specialty Start Date End Date Fam Gordon Rose MD [address] [place] [address] PCP - General Internal Medicine 11/30/19 documented as of this encounter
--- OUTSIDE RECORDS SUMMARY | 2025-06-02 12:36 | XMS_ITS | Encounter Summary ---
Author Organization [employer] Address [address] [facility] 7t [place] [address] Care Team Providers Care Pest Control Applicator Name Role Phone Gordon Velez MD Primary Care Prov ider Reason for Visit * Reason Comments Med Refill Encounter Details Date Type Department Care Team (Late st Contact Info) Description 01/31/2024 Refill [facility] [address] [place] [address] Gordon Velez MD [address] [place], [place] [phone] Severe persistent asthma without complication Social History [...] t he electric, gas, oil or water Medafor threatened to shut off services in your [...] EST Office Visit [facility]INE [address] [place] [phone] Homar Shields MD [address] [place] [phone] 06/07/2025 1:00 PM EST Office Visit [facility] MED & PEDS [address] [place] [address] Homar Shields MD [address] [place] [phone] 06/08/2025 1:30 PM EST Office Visit [facility] MED & PEDS [address] [place] [address] Gordon Velez MD [address] [place] [address] documented as of this encounter Visit Diagnoses Diagnosis Severe persistent asthma without complication (HCC) documented in this encounter Care Teams Pest Control Applicator Relationship Specialty Start Date End Date Gordon Velez MD [address] [place] [address] PCP - General Internal Medicine 11/30/19 documented as of this encounter
--- OUTSIDE RECORDS SUMMARY | 2025-06-02 12:36 | XMS_ITS | Encounter Summary ---
Author Organization [employer] Address [address] [facility] 7t [place] [address] Care Team Providers Care Elementary School Teacher'S Aide Name Role Phone Gordon Velez MD Primary Care Prov ider Encounter Details Date Type Department Care Team ([facility] st Contact Info) Description 02/01/2025 Orders Only [facility] MED & PEDS [address] [place], [place] [phone] Gordon Velez MD [address] [place] [address] Social History Tobacco Use Types Packs/Day Years [...] Upcoming Encounters Date Type Department Care Team ([facility] st Contact Info) Description 06/04/2025 1:00 PM EST Office Visit [facility] MED[facility]INE [address] [place] [phone] Homar Shields MD [address] [place] [phone] 06/07/2025 1:00 PM EST Office Visit [facility] MED & PEDS [address] [place] [address] Homar Shields MD [address] [place] [phone] 06/08/2025 1:30 PM EST Office Visit [facility] MED & PEDS [address] [place] [address] Gordon Velez MD [address] [place] [address] documented as of this encounter Visit Diagnoses Not on filedocumented in this encounter Additional Health Concerns Assessment Noted Time PHQ-9 Depression Total Score: 5 10/17/19 25 10:16 AM EDT documented as of this encounter Care Teams Elementary School Teacher'S Aide Relationship Specialty Start Date End Date Gordon Velez MD [address] [place] [address] PCP - General Internal Medicine 11/30/19 documented as of this encounter
--- OUTSIDE RECORDS SUMMARY | 2025-06-02 12:36 | XMS_ITS | Encounter Summary ---
Author Organization [employer] Address [address] [facility] [address] [place] [address] Care Team Providers Care Desktop Manager Name Role Phone Gordon Velez MD Primary Care Prov ider Reason for Visit * Reason Onset Date Comments Med Refill 06/28/2023 Encounter Details Date Type Department Care Team ([facility] st Contact Info) Description 06/28/2023 Telephone [facility] CHC MED & PEDS [address] [place] [address] Gordon Velez MD [address] [place] [address] Med Refill Social History Tobacco Use Types [...] Medication is currently inactive Please sent to [facility] - [address] documented in this encounter Plan of Treatment Upcoming Encounters Date Type Department Care Team ([facility] st Contact Info) Description 06/04/2025 1:00 PM EST Office Visit [facility] MEDICINE [address] [place] [phone] Homar Shields MD [address] [place] [phone] 06/07/2025 1:00 PM EST Office Visit [facility] MED & PEDS [address] [place] [address] Homar Shields MD [address] [place] [phone] 06/08/2025 1:30 PM EST Office Visit [facility] MED & PEDS [address] [place] [address] Gordon Velez MD [address] [place] [address] documented as of this encounter Visit Diagnoses Not on filedocumented in this encounter Care Teams Desktop Manager Relationship Specialty Start Date End Date Gordon Velez MD [address] [place] [address] PCP - General Internal Medicine 11/30/19 documented as of this encounter
--- OUTSIDE RECORDS SUMMARY | 2025-06-02 12:37 | XMS_ITS | Encounter Summary ---
Author Organization [employer] Address 75 [facility] 7 [place] [address] Care Team Providers Care Home Visit Field Care Manager Name Role Phone Gordon Velez MD Primary Care Prov ider Reason for Visit * Reason Onset Date Comments Med Refill 12/08/2024 Encounter Details Date Type Department Care Team (Late st Contact Info) Description 12/08/2024 Telephone [facility] MEDICINE [address] [place] [address] Gordon Velez MD [address] [place], [place] [phone] Med Refill Social History Tobacco Use Types [...] 100 MG tablet To be sent to: [facility] [place] - [address] [place] [address] documented in this encounter Plan of Treatment Upcoming Encounters Date Type Department Care Team (Late st Contact Info) Description 06/04/2025 1:00 PM EST Office Visit [facility] MEDICINE [address] [place] [address] Homar Shields MD 230 [place] [address] 06/07/2025 1:00 PM EST Office Visit [facility] MED & PEDS [address] [place] [address] Homar Shields MD 230 [place] [address] 06/08/2025 1:30 PM EST Office Visit [facility] MED & PEDS [address] [place] [address] Gordon Velez MD 505 [place] [address] documented as of this encounter Visit Diagnoses Not on filedocumented in this encounter Additional Health Concerns Assessment Noted Time PHQ-9 Depression Total Score: 5 10/17/19 25 10:16 AM EDT documented as of this encounter Care Teams Home Visit Field Care Manager Relationship Specialty Start Date End Date Gordon Velez MD 505 [place] [address] PCP - General Internal Medicine 11/30/19 documented as of this encounter
--- OUTSIDE RECORDS SUMMARY | 2025-06-02 12:37 | XMS_ITS | Encounter Summary ---
Author Organization [employer] Address 75 [facility] 7t [place] [address] Care Team Providers Care Shredding Machine Tender Name Role Phone Gordon Velez MD Primary Care Prov ider Encounter Details Date Type Department Care Team (Latest Contact Info) Description 05/31/2025 Travel Social History Tobacco Use Types Packs/Day [...] Description 06/04/2025 1:00 PM EST Office Visit [facility] MEDICINE [address] [place] [address] Homar Sihelds MD [address] [place] [address] 06/07/2025 1:00 PM EST Office Visit [facility] MED & PEDS 505 [place] [address] Homar Shields MD [address] [place] [address] 06/08/2025 1:30 PM EST Office Visit [facility] MED & PEDS 505 [place] [address] Gordon Velez MD 505 [place] [address] documented as of this encounter Goals Goal [...] documented as of this encounter Care Teams Shredding Machine Tender Relationship Specialty Start Date End Date Gordon Velez MD 505 [place] [address] PCP - General Internal Medicine 5/11/20 documented as of this encounter
--- OUTSIDE RECORDS SUMMARY | 2025-06-02 12:37 | XMS_ITS | Encounter Summary ---
Author Organization [employer] Address 75 [facility] 7 [place] [address] Care Team Providers Care Drum Straightener Name Role Phone Gordon Velez MD Primary Care Prov ider Reason for Visit * Reason Comments Med Refill Encounter Details Date Type Department Care Team ([facility] st Contact Info) Description 11/15/2024 Refill [facility] CHC MED & PEDS [address] [place], [place] [phone] Godron Velez MD 505 [place] [address] Severe persistent asthma without complication Social History [...] Description 06/04/2025 1:00 PM EST Office Visit [facility] MEDICINE [address] [place] [address] Homar Shields MD [address] [place] [address] 06/07/2025 1:00 PM EST Office Visit [facility] MED & PEDS [address] [place] [address] Homar Shields MD [address] [place] [address] 06/08/2025 1:30 PM EST Office Visit [facility] MED & PEDS [address] [place] [address] Gordon Velez MD 505 [place] [address] documented as of this encounter Visit Diagnoses Diagnosis Severe persistent asthma without complication (HCC) documented in this encounter Additional Health Concerns Assessment Noted Time PHQ-9 Depression Total Score: 5 10/17/19 25 10:16 AM EDT documented as of this encounter Care Teams Drum Straightener Relationship Specialty Start Date End Date Gordon Velez MD [address] [place] [address] PCP - General Internal Medicine 11/30/19 documented as of this encounter
--- OUTSIDE RECORDS SUMMARY | 2025-06-02 12:37 | XMS_ITS | Encounter Summary ---
Author Organization [employer] Address 75 [facility] 7 [place] [address] Care Team Providers Care Assembler Product Name Role Phone Gordon Velez MD Primary Care Prov ider Reason for Visit * Reason Onset Date Comments Med Refill 06/02/2024 Encounter Details Date Type Department Care Team ([facility] st Contact Info) Description 06/02/2024 Telephone [facility] MEDICINE 230 [place] [address] Gordon Velez MD 505 [place], [place] [phone] Med Refill Social History Tobacco Use Types [...] 50 MG tablet To be sent to: [facility] - [address] documented in this encounter Plan of Treatment Upcoming Encounters Date Type Department Care Team ([facility] st Contact Info) Description 06/04/2025 1:00 PM EST Office Visit [facility] MEDICINE [address] [place] [address] Homar Shields MD [address] [place] [address] 06/07/2025 1:00 PM EST Office Visit [facility] MED & PEDS 505 [place] [address] Homar Shields MD [address] [place] [address] 06/08/2025 1:30 PM EST Office Visit [facility] MED & PEDS 505 [place] [address] Gordon Velez MD 505 [place] [address] documented as of this encounter Visit Diagnoses Not on filedocumented in this encounter Additional Health Concerns Assessment Noted Time PHQ-9 Depression Total Score: 18 024 1:56 PM EDT documented as of this encounter Care Teams Assembler Product Relationship Specialty Start Date End Date Gordon Velez MD 505 [place] [address] PCP - General Internal Medicine 11/30/19 documented as of this encounter
--- OUTSIDE RECORDS SUMMARY | 2025-06-02 12:37 | XMS_ITS | Encounter Summary ---
Author Organization [email or web address] Address 75 [facility] 7 [place] [address] Care Team Providers Care Marketing Graphics Specialist Name Role Phone Gordon Velez MD Primary Care Prov ider Reason for Visit * Reason Comments Med Refill Encounter Details Date Type Department Care Team ([facility] st Contact Info) Description 07/30/2024 Refill [facility] CHC MED & PEDS 505 [place], [place] [phone] Gordon Velez MD [address] [place] [address] Chronic midline low back pain without sciatica [...] to pt regarding message below. Called via [employer] ID# [id number]. F/u with PCP Re: pain scheduled for 08/07/24 @10:30am. * Telephone Encounter - AUDI Woodard - 07/31/2024 5:18 PM EST Last med refill on 07/07/24 following televisit for hip pain. Does not appear to be on [employer] ED[employer]ATIONAL SPECIALIST. Will defer refill until PCP returns. She should be seen for an appt if pain is worsening. Thank you! documented in this encounter Plan of Treatment Upcoming Encounters Date Type Department Care Team (Late st Contact Info) Description 06/04/2025 1:00 PM EST Office Visit [facility] MEDICINE 230 [place] [address] Homar Shields MD 230 [place] [address] 06/07/2025 1:00 PM EST Office Visit [facility] MED & PEDS 505 [place] [address] Homar Shields MD [address] [place] [address] 06/08/2025 1:30 PM EST Office Visit [facility] MED & PEDS 505 [place] [address] Gordon Velez MD 505 [place] [address] documented as of this encounter Visit Diagnoses Diagnosis Chronic midline low back pain without sciatica documented in this encounter Additional Health Concerns Assessment Noted Time PHQ-9 Depression Total Score: 18 024 1:56 PM EDT documented as of this encounter Care Teams Marketing Graphics Specialist Relationship Specialty Start Date End Date Gordon Velez MD [address] [place] [address] PCP - General Internal Medicine 11/30/19 documented as of this encounter
--- OUTSIDE RECORDS SUMMARY | 2025-06-02 12:37 | XMS_ITS | Encounter Summary ---
Author Organization [employer] Address 75 [facility] 7 [place] [address] Care Team Providers Care Indoor Landscape Architect Name Role Phone Gordon Velez MD Primary Care Prov ider Encounter Details Date Type Department Care Team (Late Contact Info) Description 11/21/2022 Orders Only [facility] CHC MED & PEDS 505 [place], [place] [phone] Gordon Velez MD 505 [place], [place] [phone] Social History Tobacco Use Types Packs/Day Years [...] Description 06/04/2025 1:00 PM EST Office Visit [facility] MEDICINE 230 [place], [place] [phone] Homar Shields MD 230 [place], [place] [phone] 06/07/2025 1:00 PM EST Office Visit [facility] MED [facility] PEDS 505 [place] [address] Homar Shields MD 230 [place], [place] [phone] 06/08/2025 1:30 PM EST Office Visit [facility] MED & PEDS 505 [place] [address] Gordon Velez MD 505 [place] [address] documented as of this encounter Visit Diagnoses Not on filedocumented in this encounter Care Teams Indoor Landscape Architect Relationship Specialty Start Date End Date Gordon Velez MD 505 [place] [address] PCP - General Internal Medicine 11/30/19 documented as of this encounter
--- OUTSIDE RECORDS SUMMARY | 2025-06-02 12:37 | XMS_ITS | Encounter Summary ---
Author Organization [employer] Address 75 [facility] 7t [place] [address] Care Team Providers Care Salad Maker Name Role Phone Gordon Velez MD Primary Care Prov ider Reason for Visit * Reason Onset Date Comments Appointment Request 07/10/2023 Encounter Details Date Type Department Care Team ([facility] st Contact Info) Description 07/10/[address] [facility] MEDICINE 230 [place] [address] Gordon Velez MD 505 [place], [place] [phone] Appointment Request Social History Tobacco Use Types [...] 1:00 PM EST Office Visit [facility] MEDICINE [address] [place] [address] Homar Shields MD [address] [place] [address] 06/07/2025 1:00 PM EST Office Visit [facility] MED & PEDS 505 [place] [address] Homar Shields MD [address] [place] [address] 06/08/2025 1:30 PM EST Office Visit [facility] MED & PEDS 505 [place] [address] Gordon Velez MD 505 [place] [address] documented as of this encounter Visit Diagnoses Not on filedocumented in this encounter Care Teams Salad Maker Relationship Specialty Start Date End Date Gordon Velez MD 505 [place] [address] PCP - General Internal Medicine 11/30/19 documented as of this encounter
--- OUTSIDE RECORDS SUMMARY | 2025-06-02 12:37 | XMS_ITS | Encounter Summary ---
Author Organization [employer] Address 75 [facility] 7t [place] [address] Care Team Providers Care Candy Butcher Name Role Phone Gordon Velez MD Primary Care Prov ider Encounter Details Date Type Department Care Team (Late st Contact Info) Description 06/02/2025 Orders Only GENERIC EXTERNAL DATA [...] Description 06/04/2025 1:00 PM EST Office Visit [facility] MEDICINE [address] [place] [address] Homar Shields MD [address] [place] [address] 06/07/2025 1:00 PM EST Office Visit [facility] MED & PEDS 505 [place] [address] Homar Shields MD [address] [place] [address] 06/08/2025 1:30 PM EST Office Visit [facility] MED & PEDS 505 [place] [address] Gordon Velez MD 505 [place] [address] documented as of this encounter Goals Goal Patient Goal Type Associated Problems Recent Progress Patient-Stated? Author Enhanced ability to interact with others without suspicion or defensiveness General No Helen Jeffery, DENISHA documented as of this encounter Procedures Procedure Name Priority Date/Time Associated Diagnosis Comments TSH Routine 06/02/2025 10:44 AM EST T4, FREE Routine 06/02/2025 10:44 AM EST documented in this encounter Results * TSH (06/02/2025 10:44 AM EST) Thyroid Stimulating Hormone 0.33 0.32 - 4.0 uIU/mL [facility] Comment:TSH 3rd Generation ( [facility]) 06/02/2025 10:4 4 AM EST 06/02/2025 10:44 AM EST us Generic External Data Provider LAB BLOOD ORDERAB LES Final Result Performing Organization Address [facility]/ZIP Co de Phone Number [facility] [address] [place] [address] [phone] * T4, Free (06/02/2025 10:44 AM EST) Free T4 (Free Thyroxine) 1.17 0.71 - 1.85 ng/dL [facility] 06/02/2025 10:4 4 AM EST 06/02/2025 10:44 AM EST us Generic External Data Provider LAB BLOOD ORDERAB LES Final Result Performing Organization Address [facility] Co de Phone Number [facility] [address] [place] [phone] documented in this encounter Visit Diagnoses Not on filedocumented in this encounter Additional Health Concerns Assessment Noted Time PHQ-9 Depression Total Score: 5 10/17/19 25 10:16 AM EDT documented as of this encounter Care Teams Candy Butcher Relationship Specialty Start Date End Date Gordon Velez MD [address] [place] [address] PCP - General Internal Medicine 11/30/19 documented as of this encounter
--- OUTSIDE RECORDS SUMMARY | 2025-06-02 12:37 | XMS_ITS | Encounter Summary ---
Author Organization [employer] Address 75 [facility] 7 [place] [address] Care Team Providers Care Deputy Probation Officer Name Role Phone Gordon Velez MD Primary Care Prov ider Reason for Visit * Reason Comments Med Refill Encounter Details Date Type Department Care Team ([facility] st Contact Info) Description 12/08/2024 Refill [facility] CHC MED & PEDS 505 [place], [place] [phone] Gordon Velez MD 505 [place] [address] Type 2 diabetes mellitus without complications (CMS/HCC) [...] Description 06/04/2025 1:00 PM EST Office Visit [facility] MEDICINE [address] [place] [address] Homar Shields MD [address] [place] [address] 06/07/2025 1:00 PM EST Office Visit [facility] MED & PEDS [address] [place] [address] Homar Shields MD [address] [place] [address] 06/08/2025 1:30 PM EST Office Visit [facility] MED & PEDS [address] [place] [address] Gordon Velez MD 505 [place] [address] documented as of this encounter Visit Diagnoses Diagnosis Type 2 diabetes mellitus without complications (HCC) documented in this encounter Additional Health Concerns Assessment Noted Time PHQ-9 Depression Total Score: 5 10/17/19 25 10:16 AM EDT documented as of this encounter Care Teams Deputy Probation Officer Relationship Specialty Start Date End Date FamGordon Salas MD [address] [place] [address] PCP - General Internal Medicine 11/30/19 documented as of this encounter
--- OUTSIDE RECORDS SUMMARY | 2025-06-02 12:37 | XMS_ITS | Encounter Summary ---
Author Organization [employer] Address 75 [facility] 7 [place] [address] Care Team Providers Care Salesperson Hearing Aids Name Role Phone Gordon Velez MD Primary Care Prov ider Reason for Visit * Reason Comments Med Refill Encounter Details Date Type Department Care Team ([facility] st Contact Info) Description 05/31/2025 Refill [facility] CHC MED & PEDS 505 [place], [place] [phone] Gordon Velez MD [address] [place] [address] Social History Tobacco Use Types Packs/Day Years [...] Description 06/04/2025 1:00 PM EST Office Visit [facility] MEDICINE [address] [place] [address] Homar Shields MD [address] [place] [address] 06/07/2025 1:00 PM EST Office Visit [facility] MED & PEDS [address] [place] [address] Homar Shields MD [address] [place] [address] 06/08/2025 1:30 PM EST Office Visit [facility] MED & PEDS [address] [place] [address] Gordon Velez MD [address] [place], [place] [phone] documented as of this encounter Goals Goal [...] documented as of this encounter Care Teams Salesperson Hearing Aids Relationship Specialty Start Date End Date FamGordon Salas MD [address] [place] [address] PCP - General Internal Medicine 11/30/19 documented as of this encounter
--- OUTSIDE RECORDS SUMMARY | 2025-06-02 12:37 | XMS_ITS | Encounter Summary ---
Author Organization [employer] Address 75 [facility] 7 [place] [address] Care Team Providers Care Nutrition Club Ambassador Name Role Phone Gordon Velez MD Primary Care Prov ider Reason for Visit * Reason Onset Date Comments Med Refill 11/04/2024 Encounter Details Date Type Department Care Team ([facility] st Contact Info) Description 11/04/2024 Telephone [facility] CHC MED & PEDS [address] [place] [address] Gordon Velez MD 505 [place] [address] Med Refill Social History Tobacco Use Types [...] chart. PCP will not be refilling med. RELAYS DRAFTSPERSON nurses tried contacting pt to inform. * Telephone Encounter - Kasandra Vidal - 11/04/2024 12:50 PM EDT TC from pt requesting medication refill. Medications needing refill : oxyCODONE-acetaminophen (Percocet) 5-325 MG tablet To be sent to: [facility] [place] - [address] [facility] [address] documented in this encounter Plan of Treatment Upcoming Encounters Date Type Department Care Team (Late st Contact Info) Description 06/04/2025 1:00 PM EST Office Visit [facility] MEDICINE 230 [place] [address] Homar Shields MD 230 [place] [address] 06/07/2025 1:00 PM EST Office Visit [facility] MED [facility]EDS [address] [place] [address] Homar Shields MD 230 [place] [address] 06/08/2025 1:30 PM EST Office Visit [facility] MED & PEDS 505 [place] [address] Gordon Velez MD 505 [place] [address] documented as of this encounter Visit Diagnoses Not on filedocumented in this encounter Additional Health Concerns Assessment Noted Time PHQ-9 Depression Total Score: 5 10/17/19 25 10:16 AM EDT documented as of this encounter Care Teams Nutrition Club Ambassador Relationship Specialty Start Date End Date Gordon Velez MD [address] [place] [address] PCP - General Internal Medicine 11/30/19 documented as of this encounter
--- OUTSIDE RECORDS SUMMARY | 2025-06-02 12:37 | XMS_ITS | Encounter Summary ---
Author Organization [employer] Address 75 [facility] 7t [place] [address] Care Team Providers Care Distribution Operation Supervisor Name Role Phone Gordon Velez MD Primary Care Prov ider Reason for Visit * Reason Onset Date Comments Medication Question 07/31/2024 Encounter Details Date Type Department Care Team ([facility] st Contact Info) Description 07/31/2024 Telephone [facility] MEDICINE [address] [place] [address] Gordon Velez MD [address] [place], [place] [phone] Medication Question Social History Tobacco Use Types [...] Description 06/04/2025 1:00 PM EST Office Visit [facility] MEDICINE 230 [place] [address] Homar Shields MD [address] [place] [address] 06/07/2025 1:00 PM EST Office Visit [facility] CHC MED & PEDS [address] [place] [address] Homar Shields MD [address] [place] [address] 06/08/2025 1:30 PM EST Office Visit [facility] CHC MED & PEDS [address] [place] [address] Gordon Velez MD 505 [place] [address] documented as of this encounter Visit Diagnoses Not on filedocumented in this encounter Additional Health Concerns Assessment Noted Time PHQ-9 Depression Total Score: 18 024 1:56 PM EDT documented as of this encounter Care Teams Distribution Operation Supervisor Relationship Specialty Start Date End Date Gordon Velez MD [address] [place] [address] PCP - General Internal Medicine 11/30/19 documented as of this encounter
--- OUTSIDE RECORDS SUMMARY | 2025-06-02 12:37 | XMS_ITS | Encounter Summary ---
Author Organization [employer] Address 75 [facility] 7 [place] [address] Care Team Providers Care Telephone Installer Name Role Phone Gordon Velez MD Primary Care Prov ider Reason for Visit * Reason Onset Date Comments Mamogram Order 05/15/2024 Encounter Details Date Type Department Care Team ([facility] st Contact Info) Description 05/15/2024 Telephone [facility] MEDICINE [address] [place] [address] Gordon Velez MD 505 [place], [place] [phone] Mamogram Order Social History Tobacco Use Types [...] any questions you can contact pt at [phone]. (Tamazight Speaker) documented in this encounter Plan of Treatment Upcoming Encounters Date Type Department Care Team ([facility] st Contact Info) Description 06/04/2025 1:00 PM EST Office Visit [facility] MEDICINE [address] [place] [address] Homar Shields MD [address] [place] [address] 06/07/2025 1:00 PM EST Office Visit [facility] MED & PEDS 505 [place] [address] Homar Shields MD [address] [place] [address] 06/08/2025 1:30 PM EST Office Visit [facility] MED & PEDS 505 [place] [address] Gordon Velez MD 505 [place] [address] documented as of this encounter Visit Diagnoses Not on filedocumented in this encounter Additional Health Concerns Assessment Noted Time PHQ-9 Depression Total Score: 18 024 1:56 PM EDT documented as of this encounter Care Teams Telephone Installer Relationship Specialty Start Date End Date Gordon Velez MD 505 [place] [address] PCP - General Internal Medicine 11/30/19 documented as of this encounter
--- OUTSIDE RECORDS SUMMARY | 2025-06-02 12:37 | XMS_ITS | Encounter Summary ---
Author Organization [employer] Address [address] [address] Care Team Providers Care Technical Sales Support Specialist Name Role Phone Gordon Velez MD Primary Care Prov ider Reason for Visit * Reason Onset Date Comments PT1 02/06/2023 Encounter Details Date Type Department Care Team ([facility] Contact Info) Description 02/06/2023 Telephone [facility] CHC MED & PEDS [address] [place] [address] Gordon Velez MD 505 [place] [address] PT1 Social History Tobacco Use Types Packs/Day [...] requesting PT1 Date: 02/21/23 Time: 12:15 Address: [address] [place] [address] Specialty: endocrinology Direct Care Specialist: yes Wheelchair: no, cane documented in this encounter Plan of Treatment Upcoming Encounters Date Type Department Care Team (Late st Contact Info) Description 06/04/2025 1:00 PM EST Office Visit [facility] MEDICINE [address] [place] [address] Homar Shields MD 230 [place] [address] 06/07/2025 1:00 PM EST Office Visit [facility] MED & PEDS [address] [place] [address] Homar Shields MD 230 [place] [address] 06/08/2025 1:30 PM EST Office Visit [facility] MED & PEDS [address] [place] [address] Gordon Velez MD 505 [place] [address] documented as of this encounter Visit Diagnoses Not on filedocumented in this encounter Care Teams Technical Sales Support Specialist Relationship Specialty Start Date End Date Gordon Velez MD [address] [place] [address] PCP - General Internal Medicine 11/30/19 documented as of this encounter
[2025-06-03 21:29] LABS: Thyroglobulin 0.1 ng/mL; Thyroglobulin Antibodies <1 IU/mL (< or = 1)
== END 2025-06-02 10:31 | disposition home or self-care (01) ==
LOC: HO.LAB 10:30
PROVIDERS: PCP Internal Medicine; Visit Provider Student in an Organized Health Care Education/Training Program
DX: Z85.850 Personal history of malignant neoplasm of thyroid (principal)
CPT/HCPCS: 36415; 84432; 84439; 84443; 86800

== ENCOUNTER 2025-06-04 12:48 | Outpatient (AMB) | payer MEDICARE, SELFPAY ==
--- NOTE | 2025-06-04 12:50 | A.OFFVIS_ITS ---
Vital Signs 3 06/04/25 12:54 Height 5 ft 2 in Weight 149 lb 14.629 oz BMI 27.4 BP 102/54 L Blood Pressure Location Rt brachial Position Sitting Pulse 60 Pulse Source Pulse Oximeter Pulse Oximetry (%) 95 Oxygen Delivery Method Room Air Intake Visit Reasons: History of thyroid cancer Intake Note: Patient presents here today for a follow-up on Hx of Thyroid Cancer: Patient last seen by DR Nuris Wayne MD. 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 Previously seen by Dr. Wayne on 12/10/2024. This is my 1st time seeing the patient. History is also significant for breast cancer that was treated with radiation therapy and her lower neck was included in her radiation field. 1997 HPI PTC in detail 03/09/2014: Total thyroidectomy Surgeon? Place? missing in chart and patient doesnt remember Pathology showed 2 foci of PTC each measuring 1 cm contained within the left lobe of the thyroid, there was microscopic extrathyroidal extension involving the perithyroidal tissue. Margins were negative. Lymphatic invasion of 1/1 perithyroidal lymph node. Right superior and a portion of the left inferior parathyroid glands were resected as well. Staging pT3 pN1 pMX. B Gene V600E mutation was negative. 06/21/2014: YANG 132.6 mCi of I 131. Post treatment scan revealed uptake within the left inferior thyroid bed. Labs from 06/14/2014 showed TSH of 39.4, TG 17, TG antibody less than 20 10/02/2021: WBS Whole-body scan revealed focal intense uptake within the left thyroid bed. Uptake was otherwise physiologic. Labs from 09/25/2021 with TSH 41.63, TG 1.7, TG antibody less than 1 10/16/2021: Ultrasound head and neck revealed mildly enlarged, normal-appearing lymph nodes in the left level 2 and 3 cervical regions. 10/16/2021: FNA biopsy of these lymph nodes with no evidence of malignancy and negative TG washout Subsequently she was referred to [facility] endocrine neoplasia at the time and saw Dr. Tejeda, and underwent ultrasound head and neck which revealed no pathologic appearing lymph nodes. She was asked to follow up in 6 weeks' time but failed to do so. 11/30/2022: WBS: Underwent I 131 with thyroid hormone withdrawal. Labs 11/23/2022 showed TSH of 46.3 with TG of 1.5, TG antibody negative. Whole-body scan revealed a persistent small focus of radiotracer uptake in the left neck, not significantly enlarged. Otherwise there was physiologic distribution of the radiotracer. 08/05/2023 TSH less than 0.01 Free T4 1.18 Thyroglobulin 0.1 TG antibody negative Labs 03/11/2024 showed TSH less than 0.01, free T4 1.79, TG less than 011, TG antibody less than 1 03/12/2024Levothyroxine dose reduced from 150 mcg to 137 mcg daily 04/10/2024 ultrasound neck showed bilateral normal looking lymph nodes, I reviewed the images myself. 05/13/2024 repeat labs showed TSH of 0.20, free T4 of 0.98. 05/26/25: TSH 0.33, Tg 0.1, Tg AB <1 Had neck radiation 1997 for breast cancer. Denies having ever used lithium, amiodarone or biotin supplements. Patient denies any family history of thyroid cancer or thyroid disease. Interval history Reports feeling well. No recent hospitalizations Currently taking Levothyroxine 137 mcg daily. She does take it with other meds. She denies palpitation, but reports occasionally feeling tremors in her hands. Patient denies any difficulty swallowing, pain on swallowing or voice changes or difficulty breathing. Physical exam: General: Well appearing. NAD. Not Cushingoid or Acromegalic Neck/Thyroid: Thyroid not palpable, no nodules. Eyes: No conjunctival injection, not lid lag or proptosis CV: RRR, no murmur. No edema. Resp:Lungs clear to auscultation bilaterally Abdomen: Soft, nontender. nondistended Extremities/Neuro: No weakness or tremor of outstretched hands Laboratory Tests 06/02/25 10:44 TSH 0.33 Free T4 1.17 Thyroglobulin 0.1 L Thyroglobulin Antibody <1 Laboratory Tests 03/11/24 05/13/24 11:20 14:24 TSH < 0.01 L 0.20 L Free T4 1.79 0.98 Thyroglobulin <0.1 Thyroglobulin Antibody <1 01/04/23 08/05/23 12:10 11:15 TSH 0.07 L < 0.01 L Thyroglobulin 0.1 H Free T4 1.28 1.18 Thyroglobulin Fn Nl As Free T3 3.9 Thyroglobulin Antibody <1 Thyroid ultrasound 05/24/2025 FINDINGS: No residual thyroid tissue. Right side of the neck: There is a 1.1 cm, reniform shaped lymph node, levels II. New. There is a 1.0 x 0.3 x 0.7 cm, reniform shaped lymph node, level III, previously measured 1.2 x 0.3 x 1.0 cm. Left-sided neck: There is a 1.6 x 0.5 x 0.6 cm reniform shaped lymph node level IB. There is a 1.0 x 0.4 x 0.6 cm, reniform shaped lymph node, level III, previously measured 1.5 x 0.4 x 0.6 cm. Nonspecific lymph nodes. No gross solid or cystic masses at the surgical site. US SOFT TISSUE NECK 04/10/24 CLINICAL INFORMATION: Personal history of malignant neoplasm thyroid. COMPARISON: Ultrasound-guided lymph node biopsy 10/30/2021. Ultrasound soft tissue neck 10/16/2021 and 07/27/2021. TECHNIQUE: Ultrasound of the neck soft tissues is performed with high- frequency perez-scale imaging and color Doppler. FINDINGS: THYROID BED: Prior thyroidectomy. No residual thyroid tissue demonstrated in the thyroid bed. No cystic or solid nodules demonstrated in the thyroid bed. RIGHT NECK SOFT TISSUES: Scattered architecturally normal nodes are present. The nodes show normal fatty hilus, normal cortical thickness, and no cystic change or calcification. No abnormal color flow. The largest nodes are as follows: Level 1B: 1.2 x 0.4 x 0.7 cm. Normal ryan architecture. Level 3: 1.2 x 0.3 x 1.0 cm. Normal ryan architecture. LEFT NECK SOFT TISSUES: Scattered architecturally normal nodes are present. The nodes show normal fatty hilus, normal cortical thickness, and no cystic change or calcification. No abnormal color flow. The largest nodes are as follows: Level 1A: 1.0 x 0.5 x 0.6 cm. Normal ryan architecture. Level 2: 0.5 x 0.2 x 0.5 cm. Normal ryan architecture. Level 3: 1.5 x 0.5 x 0.6 cm. Normal ryan architecture. US/US soft tiss head and/or neck IMPRESSION: 1. The thyroid gland is surgically absent. No abnormal mass or fluid collection is demonstrated within the thyroid bed. 2. There are scattered bilateral cervical lymph nodes, one at right level 3 borderline enlarged, with normal architectural features. Recommend management on a clinical basis. If clinically indicated further evaluation of the neck soft tissues and nodes may be performed with CT soft tissue neck with intravenous contrast. Electronically signed by: Curtis Soni MD 04/16/2024 07:03 PM EDT RP US SOFT TISSUE NECK 10/16/21 CLINICAL INFORMATION: Lymph node mapping. COMPARISON: Ultrasound 03/14/2020. TECHNIQUE: Ultrasound of the neck soft tissues was performed with high- frequency perez-scale imaging and color Doppler. FINDINGS: THYROID BED: Prior thyroidectomy. No residual thyroid tissue demonstrated in the thyroid bed. No cystic or solid nodules demonstrated in the thyroid bed. RIGHT NECK SOFT TISSUES: Scattered architecturally normal nodes are present. The nodes show normal fatty hilus, normal cortical thickness, and no cystic change or calcification. No abnormal color flow. The largest nodes are as follows: Level Ib: 0.72 x 0.35 x 0.61 cm. Normal ryan architecture. Not seen previously. Level Ib: 0.87 x 0.50 x 0.96 cm cm. Normal ryan architecture. Not seen previously. Level III: 0: 96 x 0.41 x 0.70 cm. Normal architecture. Previously measured 1.1 x 0.23 x 1.1 cm Level III: 0.76 x 0.60 x 0.3 cm. Normal architecture. Not seen previously. LEFT NECK SOFT TISSUES: Scattered architecturally normal nodes are present. The nodes show normal fatty hilus, normal cortical thickness, and no cystic change or calcification. No abnormal color flow. The largest nodes are as follows: Level III: 1.2 x 0.5 x 0.73 cm. Normal ryan architecture. Measured 1.7 x 0.50 x 0.72 cm previously. Level III: 1.1 x 0.36 x 0.71 cm cm. Normal ryan architecture. Not seen previously. Level III: 1.1 x 0.51 x 0.94 cm. Normal ryan architecture. Previously measured 1.8 x 0.50 x 0.92 cm. US/US soft tiss head and/or neck IMPRESSION: 1. Minimal improvement in the size of the lymph nodes, compared to the previous exam 03/14/2020. Some of the small lymph nodes were not seen previously but are less than 1 cm. US SOFT TISSUE NECK 07/27/21 CLINICAL INFORMATION: Lymph node mapping. COMPARISON: Ultrasound 03/14/2020. TECHNIQUE: Ultrasound of the neck soft tissues was performed with high- frequency perez-scale imaging and color Doppler. FINDINGS: THYROID BED: Prior thyroidectomy. No residual thyroid tissue demonstrated in the thyroid bed. No cystic or solid nodules demonstrated in the thyroid bed. RIGHT NECK SOFT TISSUES: Scattered architecturally normal nodes are present. The nodes show normal fatty hilus, normal cortical thickness, and no cystic change or calcification. No abnormal color flow. The largest nodes are as follows: Level Ib: 0.72 x 0.35 x 0.61 cm. Normal ryan architecture. Not seen previously. Level Ib: 0.87 x 0.50 x 0.96 cm cm. Normal ryan architecture. Not seen previously. Level III: 0: 96 x 0.41 x 0.70 cm. Normal architecture. Previously measured 1.1 x 0.23 x 1.1 cm Level III: 0.76 x 0.60 x 0.3 cm. Normal architecture. Not seen previously. LEFT NECK SOFT TISSUES: Scattered architecturally normal nodes are present. The nodes show normal fatty hilus, normal cortical thickness, and no cystic change or calcification. No abnormal color flow. The largest nodes are as follows: Level III: 1.2 x 0.5 x 0.73 cm. Normal ryan architecture. Measured 1.7 x 0.50 x 0.72 cm previously. Level III: 1.1 x 0.36 x 0.71 cm cm. Normal ryan architecture. Not seen previously. Level III: 1.1 x 0.51 x 0.94 cm. Normal ryan architecture. Previously measured 1.8 x 0.50 x 0.92 cm. US/US soft tiss head and/or neck IMPRESSION: 1. Minimal improvement in the size of the lymph nodes, compared to the previous exam 03/14/2020. Some of the small lymph nodes were not seen previously but are less than 1 cm. [facility] Medical History Hypotension Osteoarthritis of knees, bilateral Fibromyalgia Hyperparathyroidism Vitamin D deficiency History of thyroid cancer Postsurgical hypothyroidism H/O malignant neoplasm of skin Lumbar spondylosis Vitamin D deficiency Osteopenia Dyslipidemia Diabetic polyneuropathy associated with type 2 diabetes mellitus Post-surgical hypothyroidism Primary thyroid cancer Diabetes type 2, controlled Surgical History History of lip cancer History of biopsy History of bunionectomy Hx of cholecystectomy Hx of thyroidectomy Hx of colonoscopy History of carpal tunnel release Hx of hysterectomy Hx of mastectomy Family History Father Diabetes mellitus Mother Cancer of eye Skin cancer of nose Social History Household Members: None Housing: Apartment Are you a primary healthcare administration intern to a significant other at home: No Do you 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 have 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) Alcohol intake: never Comment: ref alarm, ambulating in room Patient Tobacco Use Status: Current everyday Tobacco user Substance Use Type: Opiates service: No Current occupational status: disabled Assessment & Plan Assessment & Plan (1) History of thyroid cancer: Code(s): Z85.850 - Personal history of malignant neoplasm of thyroid Category: Medical Plan: Patient with history of left lobe multifocal PTC with 2 foci each 1 cm, status post total thyroidectomy in February of 2014, AJCC stage I disease (pT3 pN1 MX), KEKE intermediate risk of recurrence due to microscopic extrathyroidal extension involving the perithyroidal tissue. Margins were negative. Lymphatic invasion of 1/1 perithyroidal lymph node. KEKE indeterminate response. Over the last many years she has been followed with serial ultrasounds, whole- body scan and TG levels. Her Non stimulated Tg levels have mostly been in the range within the range of 0.1-0.5 and stimulated within the range of 1.5-1.7, more or less stable. Previously classify her as KEKE indeterminate response to therapy due to mildly detectable TG levels intermittently. While she has had some focal uptake on her left side of whole-body scan, with last 1 being in December 11, her ultrasounds have not shown any suspicious lymph nodes, and previously when they did in , biopsy was negative for malignancy. Thyroid ultrasound from March 2024 without any abnormal lymph nodes, showed bilateral normal looking lymph nodes. Labs from February 2024 showed undetectable TG levels however TSH was suppressed. In February 2024 her levothyroxine dose was reduced from 150 mcg to 137 mcg daily because her TSH was suppressed. On labs from April 2024 showed TSH of 0.2 which is within goal what she was on levothyroxine 137 mcg daily. In indeterminate response, 15% to 20% we will have structural disease identified during follow-up, however in the remainder of the nonspecific changes are either stable or resolved, less than 1% have disease specific Patient with the most recent labs from May 2025 showing TSH 0.33, thyroglobulin 0.1 and thyroglobulin antibody less than 1, and the reported absence of residual thyroid tissue, despite the appearance of some new lymph node that were described as nonspecific, unclassified this patient as indeterminate response, due to the aforementioned nonspecific lymph nodes. I do believe the indeterminate response TSH goal should be 0.5-1, based on KEKE guidelines. Changing this TSH goal would help us reduce her dose and avoid symptoms of excessive thyroid supplementation. Plan: -Decrease LT4 to 125 mcg -Repeat TFTs in 6 weeks -Placed orders for TSH, free T4, TG and TG antibody levels in 6 months -Repeat US in 6 months to reassess changes in size of newly seen LNs -Follow up in 6 months (2) Postsurgical hypothyroidism: Code(s): E89.0 - Postprocedural hypothyroidism Category: Medical Plan: Patient with postsurgical hypothyroidism after total thyroidectomy due to thyroid cancer. She is currently KEKE indeterminate response to therapy due to mildly elevated but stable thyroglobulin levels. Her goal TSH at this time is 0.1-0.5. Labs from February 2024 showed undetectable TG levels however TSH was suppressed. I will plan to repeat her thyroglobulin tumor markers in 6 months from now which would be around November 2024 to reclassify her according to dynamic risk stratification. In February 2024 I also reduced her levothyroxine dose from 150 mcg to 137 mcg daily because her TSH was suppressed, and our goal TSH is anywhere between 0.12-0.5. Now 137 mcg daily of levothyroxine most recent labs from April 2024 showed TSH of 0.2 which is within goal. She was supposed to get blood work done prior to this appointment, however forgot, I have asked her to do blood work today. Patient with the most recent labs from May 2025 showing TSH 0.33, thyroglobulin 0.1 and thyroglobulin antibody less than 1, and the reported absence of residual thyroid tissue, despite the appearance of some new lymph node that were described as nonspecific, unclassified this patient as indeterminate response, due to the aforementioned nonspecific lymph nodes. I do believe the indeterminate response TSH goal should be 0.5-1, based on KEKE guidelines. Changing this TSH goal would help us reduce her dose and avoid symptoms of excessive thyroid supplementation. Plan: -Decrease LT4 to 125 mcg -Repeat TFTs in 6 weeks (3) Vitamin D deficiency: Code(s): E55.9 - Vitamin D deficiency, unspecified Category: Medical Plan: Pt reports taking 2000IU daily Last level obtain in 2021. Last DXA in 07/2023-osteopenia with FRAX score not requiring treatment PCP usually orders DXA Recommend to repeat it in , ordered Plan 30 minutes spent reviewing previous records, labs, imaging, education and documenting in the chart Orders: Orders 2 Thyroglobulin & Antibody 6 Months E89.0 - Postprocedural hypothyroidism TSH reflex Free T4 6 Months E89.0 - Postprocedural hypothyroidism Vitamin D 25-OH Total 6 Weeks E55.9 - Vitamin D deficiency, unspecified TSH reflex Free T4 6 Weeks E89.0 - Postprocedural hypothyroidism US thyroid Today E89.0 - Postprocedural hypothyroidism XR DEXA axial skeleton Today E21.3 - Hyperparathyroidism, unspecified Medications: New 2 levothyroxine (Synthroid) 125 mcg PO DAILY 30 tabs 3RF Discontinued 2 levothyroxine Discontinued Reason: Doctor's Order 137 mcg PO DAILY 30 tabs 8RF E89.0 - Postprocedural hypothyroidism Patient Instructions: Instrucciones para deng levotiroxina 125 mcg: [place] bhavna tableta de 125 microgramos de levotiroxina por v?a oral, bhavna vez al d?a. [place] la tableta en ayunas, al menos 30 a 60 minutos antes del desayuno. Trague la tableta entera con un vaso de agua. No tome la levotiroxina junto con alimentos, caf?, leche, suplementos de calcio o harper, ya que pueden disminuir springer absorci?n. Repita los analisis a las 6 semanas de iniciada la nueva dosis Coding Level of Care Code Est Pt Level 4 (75842) Diagnoses History of thyroid cancer Z85.850 Postsurgical hypothyroidism E89.0 Vitamin D deficiency E55.9
[2025-06-04 12:54] VITALS: BP 102/54; PULSE 60; O2SAT 95; BMI 27.4
== END 2025-06-04 13:33 | disposition home or self-care (01) ==
LOC: HO.ENCR 12:49
PROVIDERS: PCP Internal Medicine; Visit Provider Student in an Organized Health Care Education/Training Program
DX: Z85.850 Personal history of malignant neoplasm of thyroid (principal); E89.0 Postprocedural hypothyroidism; E55.9 Vitamin D deficiency, unspecified
CPT/HCPCS: 99214

== ENCOUNTER → 2025-06-04 12:48 | Outpatient (BNVA) | payer MEDICARE, SELFPAY | PROVIDERS: PCP Internal Medicine; Visit Provider Student in an Organized Health Care Education/Training Program | DX: Z08 Encounter for follow-up examination after completed treatment for malignant neoplasm (principal); E89.0 Postprocedural hypothyroidism; E21.3 Hyperparathyroidism, unspecified; E55.9 Vitamin D deficiency, unspecified; F11.90 Opioid use, unspecified, uncomplicated; F17.200 Nicotine dependence, unspecified, uncomplicated; Z79.890 Hormone replacement therapy | CPT/HCPCS: 99212 ==

== ENCOUNTER 2025-06-18 11:07 | Outpatient (REF) | payer MEDICARE, SELFPAY ==
--- OUTSIDE RECORDS SUMMARY | 2025-06-18 11:10 | XMS_ITS | Encounter Summary ---
Author Organization [employer] Address [address] [facility] [address] [place] [address] Care Team Providers Care Hand Edge Bander Name Role Phone Gordon Velez MD Primary Care Prov ider Encounter Details Date Type Department Care Team ([facility] st Contact Info) Description 08/21/2023 Orders Only [facility] MED & PEDS [address] [place], [place] [phone] Gordon Velez MD [address] [place] [address] Social History Tobacco Use Types Packs/Day Years [...] Care Team (Late st Contact Info) Description 07/05/2025 1:30 PM EST Office Visit [facility] MED [facility] PEDS [address] [place] [address] Gordon Velez MD [address] [place] [address] documented as of this encounter Visit Diagnoses Not on filedocumented in this encounter Care Teams Hand Edge Bander Relationship Specialty Start Date End Date Gordon Velez MD [address] [place] [address] PCP - General Internal Medicine 11/30/19 documented as of this encounter
--- OUTSIDE RECORDS SUMMARY | 2025-06-18 11:10 | XMS_ITS | Encounter Summary ---
Author Organization [employer] Address [address] [facility] [address] [place] [address] Care Team Providers Care Stage Driver Name Role Phone Gordon Velez MD Primary Care Prov ider Reason for Visit * Reason Onset Date Comments Referral 09/10/2023 Encounter Details Date Type Department Care Team ([facility] Contact Info) Description 09/10/2023 Telephone [facility]C MED & PEDS [address] [place] [address] Gordon Velez MD [address] [place] [address] Referral Social History Tobacco Use Types Packs/Day [...] Pt states Mammo can be sent to [facility] women's center. Ordersent as requested. Pt then stated needing a referral to [facility] eye care for routine DM eye [...] requesting for eye referral flavia sent to [facility]. States she is not able to make an appointment due to office not having a referral. documented in this encounter Plan of Treatment Upcoming Encounters Date Type Department Care Team (Late st Contact Info) Description 07/05/2025 1:30 PM EST Office Visit [facility] MED & PEDS [address] [place] [address] Gordon Velez MD [address] [place] [address] documented as of this encounter Visit Diagnoses Diagnosis Type 2 diabetes mellitus without complication, without long-term current use of insulin (HCC) documented in this encounter Care Teams Stage Driver Relationship Specialty Start Date End Date Gordon Velez MD [address] [place] [id number] PCP - General Internal Medicine 11/30/19 documented as of this encounter
--- OUTSIDE RECORDS SUMMARY | 2025-06-18 11:10 | XMS_ITS | Encounter Summary ---
Author Organization [employer] Address [address] [facility] 7 [place] [address] Care Team Providers Care Railroad Operator Name Role Phone Gordon Velez MD Primary Care Prov ider Reason for Visit * Reason Onset Date Comments Error 12/10/2024 Encounter Details Date Type Department Care Team ([facility] st Contact Info) Description 12/10/2024 Telephone [facility] MEDICINE [address] [place] [address] Gordon Velez MD [address] [place], [place] [phone] Error Social History Tobacco Use Types Packs/Day [...] Upcoming Encounters Date Type Department Care Team ([facility] st Contact Info) Description 07/05/2025 1:30 PM EST Office Visit [facility] MED & PEDS [address] [place] [address] Gordon Velez MD [address] [place] [address] documented as of this encounter Visit Diagnoses Not on filedocumented in this encounter Additional Health Concerns Assessment Noted Time PHQ-9 Depression Total Score: 5 10/17/19 25 10:16 AM EDT documented as of this encounter Care Teams Railroad Operator Relationship Specialty Start Date End Date Gordon Velez MD [address] [place] [address] PCP - General Internal Medicine 11/30/19 documented as of this encounter
--- OUTSIDE RECORDS SUMMARY | 2025-06-18 11:10 | XMS_ITS | Encounter Summary ---
Author Organization [employer] Address [address] [facility] [address] [place] [address] Care Team Providers Care Solution Design And Analysis Manager Name Role Phone Gordon Velez MD Primary Care Prov ider Reason for Visit * Reason Comments Med Refill Encounter Details Date Type Department Care Team (Late st Contact Info) Description 02/07/2025 Refill [facility] MEDICINE [address] [place] [address] Gordon Velez MD [address] [place], [place] [phone] Severe persistent asthma without complication Social History [...] Description 07/05/2025 1:30 PM EST Office Visit [facility] MED & PEDS [address] [place] [address] Gordon Velez MD [address] [place] [address] documented as of this encounter Visit Diagnoses Diagnosis Severe persistent asthma without complication (HCC) documented in this encounter Additional Health Concerns Assessment Noted Time PHQ-9 Depression Total Score: 5 10/17/19 25 10:16 AM EDT documented as of this encounter Care Teams Solution Design And Analysis Manager Relationship Specialty Start Date End Date Gordon Velez MD [address] [place] [address] PCP - General Internal Medicine 11/30/19 documented as of this encounter
--- OUTSIDE RECORDS SUMMARY | 2025-06-18 11:10 | XMS_ITS | Encounter Summary ---
Author Organization [employer] Address [address] [facility] [address] [place] [address] Care Team Providers Care Networking Administrator Name Role Phone Gordon Velez MD Primary Care Prov ider Encounter Details Date Type Department Care Team (Late Contact Info) Description 07/18/2022 Telephone [facility] CHC MED & PEDS [address] [place], [place] [phone] Gordon Velez MD [address] [place], [place] [phone] Social History Tobacco Use Types Packs/Day Years [...] Department Care Team (Late Contact Info) Description 07/05/2025 1:30 PM EST Office Visit [facility] CHC MED & PEDS [address] [place], [place] [phone] oGrdon Velez MD [address] [place], [place] [phone] documented as of this encounter Visit Diagnoses Not on filedocumented in this encounter Care Teams Networking Administrator Relationship Specialty Start Date End Date Gordon Velez MD [address] [place] [address] [place] [address] PCP - General Internal Medicine 11/30/19 documented as of this encounter
--- OUTSIDE RECORDS SUMMARY | 2025-06-18 11:10 | XMS_ITS | Encounter Summary ---
Author Organization [employer] Address [address] [facility] 7t [place] [address] Care Team Providers Care Patient Safety Attendant Name Role Phone Gordon Velez MD Primary Care Prov ider Encounter Details Date Type Department Care Team ([facility] st Contact Info) Description 11/08/2023 Orders Only [facility] MEDICINE [address] [place] [address] ProviderMarito MD Social History Tobacco Use Types [...] ([facility] st Contact Info) Description 07/05/2025 1:30 PM EST Office Visit [facility] MED & PEDS [address] [place] [address] Gordon Velez MD [address] [place] [address] documented as of this encounter Procedures Procedure Name Priority Date/Time Associated Diagnosis Comments HM COLONOSCOPY Routine 11/24/2015 12:21 PM EDT documented in this encounter Results * Hm Colonoscopy (11/24/2015 12:21 PM EDT) Historical Provider HEALTH MAINTENANCE Final Result documented in this encounter Visit Diagnoses Not on filedocumented in this encounter Care Teams Patient Safety Attendant Relationship Specialty Start Date End Date Gordon Velez MD [address] [place] [address] PCP - General Internal Medicine 11/30/19 documented as of this encounter
--- OUTSIDE RECORDS SUMMARY | 2025-06-18 11:10 | XMS_ITS | Encounter Summary ---
Author Organization [employer] Address [address] [facility] 7t [place] [address] Care Team Providers Care Rotary Cutter Operator Name Role Phone Gordon Velez MD Primary Care Prov ider Reason for Visit * Reason Onset Date Comments Nurse Triage 01/08/2025 Encounter Details Date Type Department Care Team ([facility] st Contact Info) Description 01/08/2025 Telephone [facility] MEDICINE [address] [place] [address] Gordon Velez MD [address] [place], [place] [phone] Nurse Triage Social History Tobacco Use Types [...] - 01/11/2025 9:45 AM EDT TC via [employer] president lending. No answer. Unable to leave voicemail as mailbox is full. * Telephone Encounter - Lorrie Sheppard - 01/08/2025 3:42 PM EDT Tc from pt returning phone call. Guamanian * Telephone Encounter - Ofelia Grimes RN - 01/08/2025 2:38 PM EDT TC to pt to obtain blood sugars from home to assess glycemic control for provider information to determine refills. BLS coat check attendant utilized. No ringing as call went straight to voicemail, voicemail box is not set up and unable to leave a voicemail. * Telephone Encounter - Leatha Gama RN - 01/08/2025 12:09 PM EDT Called pt. Via [email or web address] coat check attendant [phone] [address]. Pt. States that she has been [...] blood sugars. * Telephone Encounter - Macario Segura - 01/08/2025 11:59 AM EDT Symptom: High Blood Sugar - Caller Reports Outcome: Schedule a same-day appointment or talk to a nurse or provider today Reason: Caller denied all higher acuity questions Please contact pt at [phone]. (Guamanian Speaker) documented in this encounter Plan of Treatment Upcoming Encounters Date Type Department Care Team ([facility] st Contact Info) Description 07/05/2025 1:30 PM EST Office Visit [facility] MED & PEDS [address] [place] [address] Gordon Velez MD [address] [place] [address] documented as of this encounter Visit Diagnoses Not on filedocumented in this encounter Additional Health Concerns Assessment Noted Time PHQ-9 Depression Total Score: 5 10/17/19 25 10:16 AM EDT documented as of this encounter Care Teams Rotary Cutter Operator Relationship Specialty Start Date End Date Gordon Velez MD [address] [place] [address] PCP - General Internal Medicine 11/30/19 documented as of this encounter
--- OUTSIDE RECORDS SUMMARY | 2025-06-18 11:10 | XMS_ITS | Encounter Summary ---
Author Organization [employer] Address [address] [facility] 7t [place] [address] Care Team Providers Care Director Validation Name Role Phone Gordon Velez MD Primary Care Prov ider Reason for Visit * Reason Onset Date Comments New Med Request 01/24/2024 Encounter Details Date Type Department Care Team (Late st Contact Info) Description 01/24/2024 Telephone [facility] MEDICINE [address] [place] [address] Gordon Velez MD [address] [place], [place] [phone] New Med Request Social History Tobacco Use [...] Description 07/05/2025 1:30 PM EST Office Visit [facility] MED & PEDS [address] [place] [address] Gordon Velez MD [address] [place] [address] documented as of this encounter Visit Diagnoses Not on filedocumented in this encounter Care Teams Director Validation Relationship Specialty Start Date End Date Gordon Velez MD [address] [place] [address] PCP - General Internal Medicine 11/30/19 documented as of this encounter
--- OUTSIDE RECORDS SUMMARY | 2025-06-18 11:10 | XMS_ITS | Encounter Summary ---
Author Organization [employer] Address [address] [facility] 7 [place] [address] Care Team Providers Care Housing Inspectors Name Role Phone Gordon Velez MD Primary Care Prov ider Reason for Visit * Reason Onset Date Comments Med Refill 05/06/2025 Encounter Details Date Type Department Care Team ([facility] st Contact Info) Description 05/06/2025 Telephone [facility] MED & PEDS [address] [place] [address] Gordon Velez MD [address] [place] [address] Med Refill Social History Tobacco Use Types [...] Base) MCG/ACT inhaler To be sent to: [facility] - [place], [place] - [address] [facility] documented in this encounter Plan of Treatment Upcoming Encounters Date Type Department Care Team (Late st Contact Info) Description 07/05/2025 1:30 PM EST Office Visit [facility] MED & PEDS [address] [place] [address] Gordon Velez MD [address] [place] [address] documented as of this encounter Goals Goal [...] documented as of this encounter Care Teams Housing Inspectors Relationship Specialty Start Date End Date FamGordon Salas MD [address] [place] [address] PCP - General Internal Medicine 11/30/19 documented as of this encounter
--- OUTSIDE RECORDS SUMMARY | 2025-06-18 11:10 | XMS_ITS | Encounter Summary ---
Author Organization [employer] Address [address] [facility] 7t [place] [address] Care Team Providers Care Telephone Recorder Name Role Phone Gordon Velez MD Primary Care Prov ider Reason for Visit * Reason Comments Med Refill Encounter Details Date Type Department Care Team (Late st Contact Info) Description 01/31/2024 Refill [facility] MEDICINE [address] [place] [address] Gordon Velez MD [address] [facility] [address] [place], [place] [phone] Severe persistent asthma without complication Social History [...] t he electric, gas, oil or water [employer] threatened to shut off services in your [...] 07/05/2025 1:30 PM EST Office Visit [facility] MED & PEDS [address] [place] [address] Gordon Velez MD [address] [place] [address] documented as of this encounter Visit Diagnoses Diagnosis Severe persistent asthma without complication (HCC) documented in this encounter Care Teams Telephone Recorder Relationship Specialty Start Date End Date Gordon Velez MD [address] [place] [address] PCP - General Internal Medicine 11/30/19 documented as of this encounter
--- OUTSIDE RECORDS SUMMARY | 2025-06-18 11:10 | XMS_ITS | Clinical Summary ---
Author Organization [facility] Address [address] [place] [address] Care Team Providers Care Bundle Person Name Role Phone Verna Michael Mcclain Primary Care Provider + [phone] Allergies No known active allergies Medications traMADoL [...] 07/22/2024 Influenza Vaccine (#1) 2025 8, 05/31/2016 COVID-19 Vaccine (1 - 2024-2 6 season) 2025 DTaP,Tdap,and Td Vaccines (3 - Td or Tdap) 02/12/2029 02/12/2019, 09/04/2014, 09/04/2014 RSV Vaccine (60+ years old a nd patients) (1 - 1-dose 75+ series) 10/11/2034 Hepatitis B Vaccines Aged Out No long er eligible based on patient's age to complete this topic Insurance [email or web address] Care Teams Bundle Person Relationship Specialty Start Date End Date Michael Gillespie [address] [place] [address] NATHAN Cortez [address] PCP - General Internal Medicine 11/24/20
--- OUTSIDE RECORDS SUMMARY | 2025-06-18 11:10 | XMS_ITS | Clinical Summary ---
Author Organization [address] [facility] Address [address] [place] [address] Phone Care Team Providers Care Retail Advisor Name Role Phone Gordon Velez Primary Care [...] propionate (FLONASE) 50 mcg/actuation nasal spray 1 [place] by Each Nare route 2 times daily. [...] Diagnosed Date T2DM (type 2 diabetes mellitus) ([facility] V24, CM S/[facility] V28) 06/01/2024 Hyperlipidemia associated wi th type 2 diabetes mellitus ([facility] V24, [facility] V28) 06/01/2024 Social History Tobacco [...] topic Insurance MEDICAID - [place] Care Teams Retail Advisor Relationship Specialty Start Date End Date Gordon Velez [address] [place], [place] [phone] PCP - General Internal Medicine 05/15/24
--- OUTSIDE RECORDS SUMMARY | 2025-06-18 11:10 | XMS_ITS | Encounter Summary ---
Author Organization [employer] Address [address] [facility] 7t [place] [address] Care Team Providers Care Client Relationship Manager Name Role Phone Gordon Velez MD Primary Care Prov ider Reason for Visit * Reason Onset Date Comments Referral 09/24/2023 Encounter Details Date Type Department Care Team ([facility] st Contact Info) Description 09/24/2023 Telephone [facility] MEDICINE [address] [place] [address] Gordno Velez MD [address] [place], [place] [phone] Referral Social History Tobacco Use Types Packs/Day [...] the past 12 months, has t he [employer], [employer], oil or water [employer] threatened to shut off services in your [...] was referred last month [place] [facility] Pt will be contacted when appts become available from their office. * Telephone Encounter - Macario Segura - 09/24/2023 12:52 PM EST TC from pt requesting new referral : DATE: N/A TIME:N/A Address: [address] [place] [address] [address] 3[address] Floor, [place] [address] Visits: N/A Facility Name: [facility] Type of Specialist: Gastroenterologists Phone # : [phone] Pt is requesting referral for a colonoscopy stated no concerns. If any questions you can contact pt at [phone] documented in this encounter Plan of Treatment Upcoming Encounters Date Type Department Care Team ([facility] st Contact Info) Description 07/05/2025 1:30 PM EST Office Visit [facility] MED & PEDS [address] [place] [address] Gordon Velez MD [address] [place] [address] documented as of this encounter Visit Diagnoses Not on filedocumented in this encounter Care Teams Client Relationship Manager Relationship Specialty Start Date End Date Gordon Velez MD [address] [place] [address] PCP - General Internal Medicine 11/30/19 documented as of this encounter
--- OUTSIDE RECORDS SUMMARY | 2025-06-18 11:10 | XMS_ITS | Encounter Summary ---
Author Organization [employer] Address [address] [facility] 7 [place] [address] Care Team Providers Care Art Librarian Name Role Phone Gordon Velez MD Primary Care Prov ider Reason for Visit * Reason Onset Date Comments PT1 02/04/2025 Encounter Details Date Type Department Care Team ([facility] Contact Info) Description 02/04/2025 Telephone [facility] CHC MED & PEDS [address] [place], [place] [phone] Gordon Velez MD [address] [place] [address] PT1 Social History Tobacco Use Types Packs/Day [...] Y/N: Yes Provider name or facility name: [facility] Escort needed: Y/N: No Do you have a wheelchair: Y/N: No Visits: (2x month) documented in this encounter Plan of Treatment Upcoming Encounters Date Type Department Care Team (Late st Contact Info) Description 07/05/2025 1:30 PM EST Office Visit [facility] MED & PEDS [address] [place] [address] Gordon Velez MD [address] [place] [address] documented as of this encounter Visit Diagnoses Not on filedocumented in this encounter Additional Health Concerns Assessment Noted Time PHQ-9 Depression Total Score: 5 10/17/19 25 10:16 AM EDT documented as of this encounter Care Teams Art Librarian Relationship Specialty Start Date End Date Gordon Velez MD [address] [place] [address] PCP - General Internal Medicine 11/30/19 documented as of this encounter
--- OUTSIDE RECORDS SUMMARY | 2025-06-18 11:10 | XMS_ITS | Encounter Summary ---
Author Organization [employer] Address [address] [facility] [address] [place] [address] Care Team Providers Care Cutter Inspector Name Role Phone Gordon Velez MD Primary Care Prov ider Reason for Visit * Reason Onset Date Comments Appointment Request 02/15/2023 Encounter Details Date Type Department Care Team ([facility] st Contact Info) Description 02/15/2023 Telephone [facility] CHC MED & PEDS [address] [place], [place] [phone] Gordon Velez MD [address] [place] [address] Appointment Request Social History Tobacco Use Types [...] requesting to r/s appt from 02/15/23. Details: [facility] ED f/up 01/14- r/s Patient speaks citizen of [place]. documented in this encounter Plan of Treatment Upcoming Encounters Date Type Department Care Team (Late st Contact Info) Description 07/05/2025 1:30 PM EST Office Visit [facility] MED & PEDS [address] [place] [address] Gordon Velez MD [address] [place] [address] documented as of this encounter Visit Diagnoses Not on filedocumented in this encounter Care Teams Cutter Inspector Relationship Specialty Start Date End Date Gordon Velez MD [address] [place] [address] PCP - General Internal Medicine 11/30/19 documented as of this encounter
--- OUTSIDE RECORDS SUMMARY | 2025-06-18 11:10 | XMS_ITS | Encounter Summary ---
Author Organization [employer] Address [address] [facility] 7t [place] [address] Care Team Providers Care Rapid Extractor Operator Name Role Phone Gordon Velez MD Primary Care Prov ider Reason for Visit * Reason Onset Date Comments Appointment Request 09/16/2023 Encounter Details Date Type Department Care Team ([facility] st Contact Info) Description 09/16/2023 Telephone [facility] MEDICINE [address] [place] [address] Gordon Velez MD [address] [place], [place] [phone] Appointment Request Social History Tobacco Use Types [...] t he electric, gas, oil or water [employer] threatened to shut off services in your [...] scheduled for mammo. * Telephone Encounter - Macairo Segura - 09/16/2023 9:17 AM EST Tc from pt was advised by pcp to get mammogram. Please contact pt if any questions: [phone] documented in this encounter Plan of Treatment Upcoming Encounters Date Type Department Care Team (Late st Contact Info) Description 07/05/2025 1:30 PM EST Office Visit [facility] MED & PEDS [address] [place] [address] Gordon Velez MD [address] [place] [address] documented as of this encounter Visit Diagnoses Not on filedocumented in this encounter Care Teams Rapid Extractor Operator Relationship Specialty Start Date End Date Gordon Velez MD [address] [place] [address] PCP - General Internal Medicine 11/30/19 documented as of this encounter
--- OUTSIDE RECORDS SUMMARY | 2025-06-18 11:10 | XMS_ITS | Encounter Summary ---
Author Organization [employer] Address [address] [place] [id number] Care Team Providers Care Hot Die Picker Name Role Phone Gordon Velez MD Primary Care Prov ider Encounter Details Date Type Department Care Team (Late st Contact Info) Description 07/10/2022 Orders Only [facility] [address] [place] [address] Katey Campos LPN Social History Tobacco Use [...] Description 07/05/2025 1:30 PM EST Office Visit [facility] [address] [place] [address] Gordon Velez MD [address] [place] [address] documented as of this encounter Procedures Procedure [...] AM EDT) Thyroglobulin Antibody <1 <=1 IU/mL [facility] Comment:This Thyroglobulin a ntibody test was performedusing the Agustín Timbo Chemiluminescent method.Values obtained from different assay methods cannot beused interchangeably. Thyroglobulin antibody levels,regardless of value, should not be interpreted asabsolute evidence of the presence or absence ofdisease. Thyroglobulin, LC/MS/MS TNP [facility] Thyroglobulin Level 0.5(A) ng/mL [facility] Comment:Reference Range: Ath yrotic: <0.1 ng/mLReference range applies to differentiated thyroidcancer patients following treatment. The presence ofmeasurable thyroglobulin indicates the presence ofthyroglobulin-producing thyroid tissue. Clinicalcorrelation is advised.This Thyroglobulin test was performed using theMechanology Almond Chemiluminescent method. Valuesobtained from different assay methods cannot beused interchangeably. Thyroglobulin levels, regardlessof value, should not be interpreted as absoluteevidence of the presence or absence of disease.THIS TEST WAS PERFORMED AT:[facility] [id number] [place] [id number] W. MASON,MD,PHD 11/13/2022 11:2 9 AM EDT 11/13/2022 11:29 AM EDT [facility] External Provider LAB BLO OD ORDERABLES Final Result Performing Organization Address [facility] Co de Phone Number [facility] [address] [place] [phone] * (ABNORMAL) TSH (11/13/2022 11:29 AM EDT) Thyroid Stimulating Hormone 24.45(H) 0.32 - 4.0 uIU/mL [facility] Comment:Note: A sustained TS H level above 2.5 uIU/mL may warrant further investigation. TSH 3rd Generation ([facility]) 11/13/2022 11:2 9 AM EDT 11/13/2022 11:29 AM EDT [facility] External Provider LAB BLO OD ORDERABLES Final Result Performing Organization Address [facility] Co de Phone Number [facility] [address] [place] [phone] * (ABNORMAL) T4, Free (11/13/2022 11:29 AM EDT) Free T4 (Free Thyroxine) <0.42(L) 0.71 - 1.85 ng/dL [facility] 11/13/2022 11:2 9 AM EDT 11/13/2022 11:29 AM EDT [facility] External Provider LAB BLO OD ORDERABLES Final Result Performing Organization Address City/[facility]/ZIP Co de Phone Number [facility] [address] [place] [phone] * (ABNORMAL) Thyroblobulin, Tumor Marker w/Reflex (11/08/2022 1:14 PM EDT) Thyroglobulin Antibody <1 <=1 IU/mL [facility] Comment:This Thyroglobulin a ntibody test was performedusing the Umami Chemiluminescent method.Values obtained from different assay methods cannot beused interchangeably. Thyroglobulin antibody levels,regardless of value, should not be interpreted asabsolute evidence of the presence or absence ofdisease. Thyroglobulin, LC/MS/MS TNP [facility] Thyroglobulin Level 0.3(A) ng/mL [facility] Comment:Reference Range: Ath yrotic: <0.1 ng/mLReference range applies to differentiated thyroidcancer patients following treatment. The presence ofmeasurable thyroglobulin indicates the presence ofthyroglobulin-producing thyroid tissue. Clinicalcorrelation is advised.This Thyroglobulin test was performed using theUmami Chemiluminescent method. Valuesobtained from different assay methods cannot beused interchangeably. Thyroglobulin levels, regardlessof value, should not be interpreted as absoluteevidence of the presence or absence of disease.THIS TEST WAS PERFORMED AT:[facility] [id number] [place] [address]LLFREMFEDVIN REID MD,PHD 11/08/2022 1:14 PM EDT 11/08/2022 1:14 PM EDT [facility] External Provider LAB BLO OD ORDERABLES Final Result Performing Organization Address City/[facility]/ZIP Co de Phone Number [facility] [address] [place] [address] [phone] * (ABNORMAL) TSH (11/08/2022 1:14 PM EDT) Thyroid Stimulating Hormone 8.44(H) 0.32 - 4.0 uIU/mL [facility] Comment:Note: A sustained TS H level above 2.5 uIU/mL may warrant further investigation. TSH 3rd Generation ([facility]) 11/08/2022 1:14 PM EDT 11/08/2022 1:14 PM EDT [facility] External Provider LAB BLO OD ORDERABLES Final Result Performing Organization Address [facility]/ZIP Co de Phone Number [facility] [address] [place] [address] [phone] * (ABNORMAL) T4, Free (11/08/2022 1:14 PM EDT) Free T4 (Free Thyroxine) <0.42(L) 0.71 - 1.85 ng/dL [facility] 11/08/2022 1:14 PM EDT 11/08/2022 1:14 PM EDT [facility] External Provider LAB BLO OD ORDERABLES Final Result Performing Organization Address City/[facility]/ZIP Co de Phone Number [facility] [address] [place] [phone] [phone] * (ABNORMAL) Sed Rate by Modified Gabyren (10/22/2022 10:13 AM EDT) Erythrocyte Sedimentation Rate 26(H) 0 - 20 MM/HR [facility] Comment:Patients with polycy themia and many hemoglobin abnormalitiesmay have depressed sed rates whereas patients with anemiamay have elevated sed rates. 10/22/2022 10:1 3 AM EDT 10/22/2022 10:13 AM EDT [facility] External Provider LAB BLO OD ORDERABLES Final Result Performing Organization Address [facility] Co de Phone Number [facility] [address] [place] [phone] * (ABNORMAL) C-reactive Protein (10/22/2022 10:13 AM EDT) C Reactive Protein 1.98(H) < or = 0.50 mg/dL [facility] 10/22/2022 10:1 3 AM EDT 10/22/2022 10:13 AM EDT [facility] External Provider LAB BLO OD ORDERABLES Final Result Performing Organization Address [facility] Co de Phone Number [facility] [address] [place] [phone] * ALT (10/22/2022 10:13 AM EDT) Alanine Aminotransferase 18 0 - 31 U/L [facility] 10/22/2022 10:1 3 AM EDT 10/22/2022 10:13 AM EDT [facility] External Provider LAB BLO OD ORDERABLES Final Result Performing Organization Address [facility] Co de Phone Number [facility] [address] [place] [phone] * AST (10/22/2022 10:13 AM EDT) Aspartate Amino Transferase 20 5 - 31 U/L [facility] 10/22/2022 10:1 3 AM EDT 10/22/2022 10:13 AM EDT [facility] External Provider LAB BLO OD ORDERABLES Final Result Performing Organization Address [facility] Co de Phone Number [facility] [address] [place] [address] [place] [phone] * Creatinine, Serum (10/22/2022 10:13 AM EDT) Creatinine, Serum 0.76 0.5 - 1.4 mg/dL [facility] Estimated Glomerular Filt Rate >60 [facility] Comment:NOTE: For -Am erican individuals, multiply the result by 1.210.Chronic Kidney Disease: Estimated GFR < 60 mL/min/1.20g7Ewnjow Kidney Disease: Estimated GFR < 15 mL/min/1.73m2 10/22/2022 10:1 3 AM EDT 10/22/2022 10:13 AM EDT [facility] External Provider LAB BLO OD ORDERABLES Final Result [facility] [address] [place] [phone] * Tramadol, urine (10/22/2022 10:12 AM EDT) Tramadol, Ur >[id number] [facility] Comment: Report Name Results Units Reference Range SiteDRUG MONITOR, TRAMADOL, QN, URINE [id number]: >86246 (H)ng/mL <100Tramadol: >49181 (H)ng/mL <100Tramadol Comments: See Tramadol Notes, LDT NotesDRUG MONITORING TEMPLATE [id number] and Comments:This drug testing is for medical treatment only.Analysis was performed as non-forensic testing andthese results should be used only by healthcareproviders to render diagnosis or treatment, or tomonitor progress of medical conditions.Tramadol Notes:Tramadol, Desmethyltramadol detected is consistent withthe use of the drug Tramadol.LDT Notes:Confirmation tests were developed and their analyticalperformance characteristics have been determined by[facility]. It has not been cleared or approvedby the FDA. This assay has been validated pursuant tothe CLIA regulations and is used for clinical purposes.Healthcare Providers needing Interpretation assistance,please contact us at [phone] ( )M- F, 8am to 10pm ESTSite InformationNL1:[facility] [employer] [id number] [place] [id number] Laboratory Director: Shekhar Pierre M.D. Desmethyltramadol, Ur >[address] [facility] 10/22/2022 10:1 2 AM EDT 10/22/2022 10:38 AM EDT us [facility] External Provider LAB URI NE ORDERABLES Final Result [facility] [address] [place] [address] [phone] * (ABNORMAL) Drug Monitoring, Panel 1, Screen, Urine (10/22/2022 10:12 AM EDT) Opiate Screen Urine Not Detected Not Detect [facility] Comment:Opiate cut-off is 30 0 ng/mL.Positive results are unconfirmed and should not be used fornon-medical purposes. Barbiturates, Urine Not Detected Not Detect [facility] Comment:Barbiturate cut-off is 200 ng/mL.Positive results are unconfirmed and should not be used fornon-medical purposes. Phencyclidine Screen Urine Not Detected Not Detect [facility] Comment:Phencyclidine cut-of f is 25 ng/mL.Positive results are unconfirmed and should not be used fornon-medical purposes. Amphetamine Screen Urine Not Detected Not Detect [facility] Comment:Amphetamine cut-off is 1000 ng/mL.Positive results are unconfirmed and should not be used fornon-medical purposes. Benzodiazepines Screen Urine POSITIVE(A) Not Detect [facility] Comment:Benzodiazepine cut-o ff is 200 ng/mL.Positive results are unconfirmed and should not be used fornon-medical purposes. Cocaine Screen Urine Not Detected Not Detect [facility] Comment:Cocaine cut-off is 3 00 ng/mL.Positive results are unconfirmed and should not be used fornon-medical purposes. Cannabinoid Screen Urine POSITIVE(A) Not Detect [facility] Comment:Cannabinoid cut-off is 50 ng/mL.Positive results are unconfirmed and should not be used fornon-medical purposes. FENTANYL URINE POSITIVE(A) Not Detect [facility] Comment:Fentanyl cut-off is 1 ng/mL.Positive results are unconfirmed and should not be used fornon-medical purposes. 10/22/2022 10:1 2 AM EDT 10/22/2022 10:34 AM EDT us [facility] External Provider LAB URI NE ORDERABLES Final Result [facility] [address] [place] [address] [phone] * (ABNORMAL) Comprehensive Metabolic Panel (09/27/2022 2:11 PM EST) Sodium 141 135 - 145 mmol/L [facility] Potassium 4.3 3.3 - 5.1 mmol/L [facility] Chloride 104 96 - 108 mmol/L [facility] Carbon Dioxide 30(H) 22 - 29 mmol/L [facility] Anion Gap 11(L) 12 - 20 [facility] Urea Nitrogen (BUN) 13 9 - 16 mg/dL [facility] Creatinine, Serum 0.73 0.5 - 1.4 mg/dL [facility] Creatinine Clr Calc Pharmacy 73.6 [facility] Comment:Provided height and weight: 157.48 cm,70.76 kg.eGFR (calculated from the MDRD study equation) and eCrCl(calculated from the Cockcroft-Gault equation) are based ondifferent parameters and may not yield comparable results.If eCrCl result is absurd, please check patient'sheight/weight. Estimated Glomerular Filt Rate >60 [facility] Comment:NOTE: For -Am erican individuals, multiply the result by 1.210.Chronic Kidney Disease: Estimated GFR < 60 mL/min/1.32i8Gamreo Kidney Disease: Estimated GFR < 15 mL/min/1.73m2 Glucose 90 60 - 115 mg/dL [facility] Calcium 8.8 8.4 - 10.2 mg/dL [facility] Bilirubin, Total 0.4 0.0 - 1.0 mg/dL [facility] Aspartate Amino Transferase 25 5 - 31 U/L [facility] Alanine Aminotransferase 20 0 - 31 U/L [facility] Total Protein 6.7 6.5 - 8.0 g/dL [facility] Albumin Level 4.1 3.5 - 5.0 g/dL [facility] Alkaline Phosphatase 71 39 - 117 U/L [facility] 09/27/2022 2:11 PM EST 09/27/2022 2:14 PM EST us [facility] External Provider LAB BLO OD ORDERABLES Final Result [facility] [address] [place] [phone] * (ABNORMAL) CBC auto differential (09/27/2022 2:11 PM EST) White Blood Count 7.5 4.8 - 10.8 X10*3/uL [facility] Red Blood Count 4.42 4.20 - 5.50 X10*6/uL [facility] Hemoglobin 12.4 12.0 - 16.0 g/dl [facility] Hematocrit 36.9(L) 37.0 - 47.0 % [facility] Mean Corpuscular Volume 83.5 80.0 - 98.0 fL [facility] Mean Corpuscular Hemoglobin 28.1 27.0 - 33.0 pg [facility] Mean Corpuscular HGB Conc 33.6 31.0 - 35.0 g/dl [facility] Red Cell Distribution Width 12.5 11.0 - 16.0 % [facility] Platelet Count 139(L) 160 - 400 X10*3/uL [facility] Mean Platelet Volume 12.0 9.4 - 12.3 fL [facility] Neutrophils Percent Auto 54.6 45 - 73 % [facility] Imm Gran Pct Auto 0.4 0.0 - 0.4 % [facility] Lymphocytes Percent Auto 28.7 20 - 40 % [facility] Monocytes Percent Auto 8.3 2 - 11 % [facility] Eosinophils Percent Auto 7.3(H) 0 - 4 % [facility] Basophils Percent Auto 0.7 0 - 2 % [facility] NRBC Pct Auto 0.0 0.0 - 0.2 /100WBC [facility] Neutrophils Absolute Auto 4.1 2.0 - 8.3 x10*3/uL [facility] Imm Gran Abs Auto 0.03 0.00 - 0.03 X10*3/uL [facility] Lymphocytes Absolute Auto 2.2 1.2 - 4.9 X10*3/uL [facility] Monocytes Absolute Auto 0.6 0.1 - 1.2 X10*3/uL [facility] Eosinophils Absolute Auto 0.6(H) 0.0 - 0.4 X10*3/uL [facility] Basophils Absolute Auto 0.1 0.0 - 0.2 X10*3/uL [facility] NRBC Abs Auto 0.000 0.0 - 0.012 X10*3/uL [facility] 09/27/2022 2:11 PM EST 09/27/2022 2:14 PM EST us [facility] External Provider LAB BLO OD ORDERABLES Final Result [facility] [address] [place] [phone] [phone] documented in this encounter Visit Diagnoses Not on filedocumented in this encounter Care Teams Hot Die Picker Relationship Specialty Start Date End Date Gordon Velez MD [address] [place] [address] PCP - General Internal Medicine 11/30/19 documented as of this encounter
--- OUTSIDE RECORDS SUMMARY | 2025-06-18 11:10 | XMS_ITS | Clinical Summary ---
Author Organization [employer] Address [address] [facility] [address] [place] [address] Care Team Providers Care Welt Stitcher Name Role Phone Gordon Velez MD Primary [...] 1 kit 06/23/20 24 2024 Active Nebulizers [facility] Use nebulizer as instructed 1 each 07/07/20 [...] MD. 30 patch 3 09/24/19 25 Active lactulose (Chronulac) 10 GM/15ML solution TAKE [...] 2 times a day 100 each 12 5 11:06 AM EST 01/15/20 25 2025 Active Lancet Devices (Autolet) [...] BY MOUTH AT BEDTIME 90 tablet 3 5 11:06 AM EST 03/08/20 25 Active glucose blood (FREESTYLE LITE) [...] MOUTH ONCE DAILY 30 tablet 3 03/26/20 Active sennosides (Senokot) 8.6 MG tablet 1 [...] inhalerIndicatio ns:Severe persistent asthma without complication ([facility]) INHALE TWO PUFFS EVERY 6 HOURS NEEDED FOR WHEEZING 18 g 05/07/20 25 Active Breo Ellipta 200-25 MCG/ACT aerosol powderIndication s:Moderate persistent asthma without complication INHALE 1 PUFF DAILY AT THE SAME TIME EACH DAY. RINSE MOUTH AFTER USE 60 each 1 5 11:06 AM EST 05/10/20 25 Active Atrovent HFA 17 MCG/ACT inhaler INHALE TWO PUFFS EVERY 6 HOURS 12.9 g 3 5 11:08 AM EST 05/27/20 25 Active Nutritional Supplements (Boost High Protein) liquid BRINK ONE BOTTLE TWICE DAILY 5688 mL 11 5 11:06 AM EST 06/01/20 25 Active buprenorphine ER (Sublocade) 300 mg/1.5mL injectionIndicat ions:Uncomplicat ed opioid dependence (CMS/HCC) ([facility]) Inject 1.5 mL (1 each) under the skin every month to absorb continually. 1.5 mL 1 05/31/20 25 2025 Active Lancets (OneTouch Delica Plus Upvgrx05I) miscIndications: Type 2 diabetes mellitus without complication, without long-term current use of insulin ([facility]) TEST BLOOD SUGAR TWICE DAILY 100 each 3 5 10:48 AM EST 06/07/20 25 Active TRUEplus Lancets 33G miscIndications: Type 2 diabetes mellitus without complication, without long-term current use of insulin ([facility]) 1 each by Other route Once per day. 90 each 3 10/08/19 25 2024 Discontinued Nutritional Supplements (Boost High Protein) liquid DRINK ONE BOTTLE TWICE DAILY 1 mL 11 01/28/20 25 2024 Discontinued ipratropium (Atrovent) 17 MCG/ACT inhaler Inhale 2 puffs every 6 (six) hours. 12.9 g 3 02/26/20 25 2024 Discontinued Buprenorphine HCl-Naloxone HCl (Suboxone) 8-2 MG SL [...] days. 10 Film 05/31/20 25 2024 Active Problems Patient Care Coordination No te Formatting of this note migh t be different from the original. 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, but recent screening test was positive [...] & Plan (09/03/2023 11:13 PM EST): On juluvia, last A1c <7.0% from 06/03, no changes will be made Pending eye exam Assessment & Plan (08/28/2023 1:13 PM EST): Last A1c from 05/2023 was <7.0%, reinforced low carb/no sugar diet, continue current management Vitamin D deficiency 03/05/2018 Encounters Date Type Department Care Team Description 06/18/2025 Refill [facility] [address] [place] [address] Sugar Burns MD 06/07/2025 Telephone [facility] [address] [place] [address] Gordon Velez MD Medication Question 06/07/2025 Telephone [facility] [address] [place] [address] Gordon Velez MD chart prep 06/07/2025 Telephone [facility] [address] [place] [address] Lakeisha Segura MA 06/04/2025 Telephone [facility] [address] [place] [address] Lakeisha Segura MA 06/04/2025 Refill [facility] [address] [place] [address] Gordon Velez MD Type 2 diabetes mellitus without complication, without long-term current use of insulin (HCC) 06/02/2025 Orders Only GENERIC EXTERNAL DATA DEPARTMENT Provider, Generic External Data 05/31/2025 1:00 PM EST Office Visit [facility] [address] [place] [address] Homar Shields MD Uncomplicated opioid dependence (CMS/HCC) (HCC) (Primary Dx) 05/31/2025 Travel 05/31/2025 Refill [facility] [address] [place] [address] Gordon Velez MD 05/27/2025 Refill [facility] [address] [place] [address] Gordon Velez MD 05/25/2025 Refill [facility] [address] [place] [address] Helen Jeffery RN Uncomplicated opioid dependence (CMS/HCC) (HCC) 05/24/2025 1:15 PM EST Office Visit [facility] [address] [place] [address] Homar Shields MD Opioid type dependence, continuous (CMS/HCC) (HCC) (Primary Dx) 05/24/2025 Travel 05/21/2025 Refill [facility] [address] [place] [address] Helen Jeffery RN Uncomplicated opioid dependence (CMS/HCC) (HCC) 05/14/2025 1:15 PM EDT Office Visit [facility] [address] [place] [phone] Homar Shields MD Uncomplicated opioid dependence (CMS/HCC) (HCC) (Primary Dx) 05/14/2025 Travel 05/11/2025 Telephone [facility] [address] [place] [phone] Brenda Ball MA 05/08/2025 Refill [facility] [address] [place] [address] Gordon Velez MD Moderate persistent asthma without complication 05/06/2025 Telephone [facility] [address] [place] [address] Gordon Velez MD Med Refill 05/05/2025 Refill [facility] [address] [place] [address] Gordon Velez MD Seasonal allergies; Severe persistent asthma without complication (HCC) 04/27/2025 Refill [facility] [address] [place] [address] Helen Jeffery RN Uncomplicated opioid dependence (CMS/HCC) (HCC) 04/27/2025 Refill [facility] [address] [place] [phone] Helen Jeffery RN Uncomplicated opioid dependence (CMS/HCC) (HCC) 04/27/2025 Refill [facility] [address] [place] [address] Helen Jeffery RN Uncomplicated opioid dependence (CMS/HCC) (HCC) 04/26/2025 1:15 PM EDT Office Visit [facility] [address] [place] [address] Homar Shields MD Opioid type dependence, continuous (CMS/HCC) ([facility]) (Primary Dx) 04/26/2025 Orders Only [facility] [address] [place] [phone] Homar Shields MD 04/26/2025 Travel 04/23/2025 Refill [facility] [address] [place] [address] Helen Jeffery RN Uncomplicated opioid dependence (CMS/HCC) (HCC) 04/21/2025 Refill [facility] [address] [place] [address] Gordon Velez MD Severe persistent asthma without complication (HCC) 04/19/2025 1:15 PM EDT Office Visit [facility] [address] [place] [address] Homar Shields MD Uncomplicated opioid dependence (CMS/HCC) (Primary Dx) 04/19/2025 Travel 04/14/2025 Refill [facility] [address] [place] [address] Helen Jeffery, DENISHA Uncomplicated opioid dependence (CMS/HCC); Opioid type dependence, continuous (CMS/HCC) 04/12/2025 1:30 PM EDT Office Visit [facility] [address] [place] [address] Homar Shields MD Uncomplicated opioid dependence (CMS/HCC) (Primary Dx); Opioid type dependence, continuous (CMS/HCC) 04/12/2025 Travel 04/09/2025 Refill [facility] [address] [place] [address] Gordon Velez MD 04/05/2025 1:00 PM EDT Office Visit [facility] [address] [place] [address] Homar Shields MD Opioid type dependence, continuous (CMS/HCC) (Primary Dx) 04/05/2025 Travel 03/31/2025 Telephone [facility] [address] [place] [phone] Lakeisha Segura [place] 03/30/2025 Telephone [facility] [address] [place] [phone] Lakeisha Segura [place] 03/30/2025 Telephone [facility] [address] [place] [address] Gordon Velez MD Med Refill 03/26/2025 Telephone [facility] [address] [place] [address] Gordon Velez MD Durable Medical Equipment 03/26/2025 Telephone [facility] [address] [place] [address] Gordon Velez MD Nurse Triage 03/26/2025 Refill [facility] [address] [place] [address] Gordon Velez MD Type 2 diabetes mellitus without complications ([facility]) 03/23/2025 Refill [facility] [address], [place] [phone] Gordon Velez MD Severe persistent asthma without complication 03/19/2025 Refill [facility] [address], [place] [phone] Gordon Velez MD Type 2 diabetes mellitus without complication, without long-term current use of insulin ([facility]) 03/19/2025 Telephone [facility] [address], [place] [phone] Gordon eVlez MD glucose monitor from Last 3 Months Immunizations Immunization Administration [...] Description 07/05/2025 1:30 PM EST Office Visit [facility] [address] [place] [address] Gordon Velez MD [address] [place] [address] Health Maintenance Due Date Last Done Comments [...] suspicion or defensiveness General No Helen Jeffery, testing tech Procedure Name Priority Date/Time Associated Diagnosis Comments THYROGLOBULIN, TUMOR MARKER W/REFLEX Routine 06/02/2025 10:44 AM EST THYROGLOBULIN ANTIBODIES Routine 06/02/2025 10:44 AM EST THYROGLOBULIN, LC/MS/MS Routine 06/02/2025 10:44 AM EST TSH Routine 06/02/2025 10:44 AM EST T4, [...] EDT Opioid type dependence, continuous (CMS/HCC) POCT GLYCATED HEMOGLOBIN, TOTAL Routine 12/22/2024 [...] Relevant to Health Maintenance Results * (ABNORMAL) Thyroglobulin, LC/MS/MS (06/02/2025 10:44 AM EST) Thyroglobulin, LC/MS/MS 0.1(A) ng/mL [facility] Comment:Reference Range: Int act Thyroid 2.8-40.9 Athyrotic <0.1 Note: Abnormal flagging is based on the reference interval for patients with intact thyroid.This test was performed using the Agustín Coulterchemiluminescent method. Values obtained fromdifferent assay methods cannot be usedinterchangeably. Thyroglobulin levels, regardlessof value, should not be interpreted as absoluteevidence of the presence or absence of disease. Thyroglobulin Comment See Below [facility] Comment:Thyroglobulin antibo dies (TGAB) interfere withthyroglobulin (TG) assays; therefore, TGAB assayshould always be performed in conjunction with aTG assay.For additional information, please refer tohttp://education.Spavista/faq/PAZ301(This link is being provided for informational/educational purposes only.)THIS TEST WAS PERFORMED AT:[facility] [address] [id number] AMBROCIO MD 06/02/2025 10:4 4 AM EST 06/02/2025 10:44 AM EST us Generic External Data Provider LAB BLOOD ORDERAB LES Final Result [facility] [address] [place] [phone] * (ABNORMAL) Thyroblobulin, Tumor Marker w/Reflex (06/02/2025 10:44 AM EST) Thyroglobulin Antibody <1 <=1 IU/mL [facility] Comment:This Thyroglobulin a ntibody test was performedusing the [employer] Chemiluminescent method.Values obtained from different assay methods cannot beused interchangeably. Thyroglobulin antibody levels,regardless of value, should not be interpreted asabsolute evidence of the presence or absence ofdisease. Thyroglobulin, LC/MS/MS TNP [facility] Thyroglobulin Level 0.1(A) ng/mL [facility] Comment:Reference Range: Ath yrotic: <0.1 ng/mLReference range applies to differentiated thyroidcancer patients following treatment. The presence ofmeasurable thyroglobulin indicates the presence ofthyroglobulin-producing thyroid tissue. Clinicalcorrelation is advised.This Thyroglobulin test was performed using the[employer] Chemiluminescent method. Valuesobtained from different assay methods cannot beused interchangeably. Thyroglobulin levels, regardlessof value, should not be interpreted as absoluteevidence of the presence or absence of disease.THIS TEST WAS PERFORMED AT:[employer]/[id number] [place] [address]WSENHRHEDVIN REID MD,PHD 06/02/2025 10:4 4 AM EST 06/02/2025 10:44 AM EST us Generic External Data Provider LAB BLOOD ORDERAB LES Final Result Performing Organization Address City/[facility]/ZIP Co de Phone Number [facility] [address] [place] [phone] * Thyroglobulin Antibodies (06/02/2025 10:44 AM EST) Thyroglobulin Antibodies <1 < or = 1 IU/mL [facility] Comment:THIS TEST WAS PERFOR MED AT:[employer] [place] [id number] AMBROCIO MD 06/02/2025 10:4 4 AM EST 06/02/2025 10:44 AM EST us Generic External Data Provider LAB BLOOD ORDERAB LES Final Result Performing Organization Address [facility]/ZIP Co de Phone Number [facility] [address] [place] [phone] * TSH (06/02/2025 10:44 AM EST) Thyroid Stimulating Hormone 0.33 0.32 - 4.0 uIU/mL [facility] Comment:TSH 3rd Generation ( [facility]) 06/02/2025 10:4 4 AM EST 06/02/2025 10:44 AM EST us Generic External Data Provider LAB BLOOD ORDERAB LES Final Result Performing Organization Address [facility] Co de Phone Number [facility] [address] [place] [phone] * T4, Free (06/02/2025 10:44 AM EST) Free T4 (Free Thyroxine) 1.17 0.71 - 1.85 ng/dL [facility] 06/02/2025 10:4 4 AM EST 06/02/2025 10:44 AM EST us Generic External Data Provider LAB BLOOD ORDERAB LES Final Result Performing Organization Address [facility] Co de Phone Number [facility] [address] [place] [phone] * (ABNORMAL) POCT TONY-14 Urine Drug Screen (05/31/2025 1:04 PM EST) Only the most recent of8 resultswithin the time period is included. THC [...] procedure / Unknown 05/31/2025 1:04 PM EST us Homar Shields MD POINT OF CARE TEST ENTER/EDIT OR DERABLES Final Result * US Head Neck Soft Tissue (05/24/2025 3:39 PM EST) Anatomical Region Laterality Modality Head, Neck Ultrasound 05/24/2025 3:39 PM EST Narrative 05/25/2025 7:04 AM EST [place] [address] Ultrasound Report Signed Patient: Jodi Saenz MR#: [id number] : 1960 Acct:[id number] Age/Sex: 64 / F ADM Date: 05/24/25 Loc: HO.US Attending Dr: Nuris Wayne MD Ordering Physician: Nuris Wayne MD Date of Service: 05/24/25 Procedure(s): US soft tiss head and/or neck Accession Number(s): [id number] cc: Gordon Velez MD; Nuris Wayne MD [...] by: Wayne Gilliam MD 05/25/2025 07:01 AM [facility] Dictated By: Wayne George MD Signed By: <Electronically signed by Wayne Recinos MD in OV> 05/25/25 0701 DD/ 1539 TD/TT: 05/24/25 1551 Donor Relations Coordinator: Procedure Note Donotuseinterpreter, Image - 05/25/2025 [place] [address] Ultrasound Report Signed Patient: Jodi SaenzMR#: [id number] : 1960Acct:[id number] Age/Sex: 64 / FADM Date: 05/24/25 Loc: HO.US Attending Dr: Nuris Wayne MD Ordering Physician: Nuris Wayne MD Date of Service: 05/24/25 Procedure(s): US soft tiss head and/or neck Accession Number(s): [id number] cc: Gordon Velez MD; Nuris Wayne MD [...] 05/25/25 0701 DD/ 1539 TD/TT: 05/24/25 1551 Donor Relations Coordinator: [facility] External Provider IMG US PROCEDURES Final Result * Drug Toxicology Monitoring Buprenorphine, with Confirmation, Urine (05/24/2025 12:00 AM EST) Buprenorphine NEGATIVE [facility] Norbuprenorphine NEGATIVE [facility] Naloxone, Urine NEGATIVE [facility] Buprenorphine Comments SEE NOTE [facility] Comment: Drug Monitoring ReportTest Ordered [...] their analyticalperformance characteristics have been determined by [employer]. It has not been cleared or approved by the FDA.This assay has been validated pursuant to the CLIAregulations and is used for clinical purposes.Healthcare Providers needing Interpretation assistance,please contact us at [phone] ( ) M-F,8am to 10pm ESTPERFORMING SITE:[employer] [facility], [address] [place] [address] [employer] Yarn Color Checker: ASHVIN AMBROCIO MD, CLIA:[id number] Urine (Urine, Random) 05/24/2025 05/24/2025 Homar Shields MD LAB URINE ORDERABLES Final Resul t Performing Organization Address [facility] de Phone Number [facility] [address] [place] [address] [phone] * (ABNORMAL) Buprenorphine Screen,Urine (04/26/2025 1:30 PM EDT) Pathologist [facility] Buprenorphine Screen Positive( A) Not Detect ng/mL [facility] Comment:Buprenorphine cut-of f is 5 ng/mL.Positive results are unconfirmed and should not be used fornon-medical purposes. 04/26/2025 1:30 PM EDT 04/26/2025 2:47 PM EDT Homar Shields MD LAB URINE ORDERABLES Final Resul t Performing Organization Address [facility] Co de Phone Number [facility] [address] [place] [phone] * Drug Monitoring, Fentanyl, with Confirmation, Urine (04/26/2025 1:30 PM EDT) Fentanyl, Ur >250.0 [facility] Comment:CUTOFF 0.5 NG/ML Norfentanyl, Ur >250.0 [facility] Comment:CUTOFF 0.5 NG/ML Fentanyl Note SEE NOTE [facility] Comment: NOTES AND COMMENTSThis drug testing is for medical treatment only. Analysiswas performed as non-forensic testing and these resultsshould be used only by healthcare providers to renderdiagnosis or treatment, or to monitor progress of medicalconditions. Fentanyl Notes: Fentanyl, Norfentanyl detectedis consistent with the use of the drug Fentanyl.LDT Notes: Confirmation tests were developed and theiranalytical performance characteristics have been determinedby [employer]. It has not been cleared or approved bythe FDA. This assay has been validated pursuant to the CLIAregulations and is used for clinical purposes. HealthcareProviders needing Interpretation assistance, please contactus at [phone] ( ) M-F, 8am to 10pm ESTThis drug testing is for medical treatment only. Analysiswas performed as non-forensic testing and these resultsshould be used only by healthcare providers to renderdiagnosis or treatment, or to monitor progress of medicalconditions.PERFORMING SITE:[facility] [employer] [address] LaboratoryDirector: AMY GAMINO MD, CLIA: [id number] Urine (Urine, Random) 04/26/2025 1:30 PM EDT 04/26/2025 2:37 PM EDT Homar Shields MD LAB URINE ORDERABLES Final Resul t [facility] [address] [place] [phone] * POCT HGB A1C (12/22/2024 3:22 PM EDT) Hemoglobin A1C 5.5 4.0 - 6.0 % QC Media Lot # [id number] Lot# Expiration Date Blood 12/22/2024 3:22 PM EDT Michael Gillespie MD POINT OF CARE TEST ENTER/ED IT ORDERABLES Final Result * (ABNORMAL) Lipid Panel, Standard (12/10/2024 11:42 AM EDT) Triglycerides 127 <150 mg/dL [facility] Comment:Desirable Triglyceri de: less than 150 mg/dLBorderline High Triglyceride 150-199 mg/dLHigh Triglyceride: 200-499 mg/dLVery High Triglyceride: greater than or equal to 5OO mg/dL Cholesterol 140 <200 mg/dL [facility] Comment:Desirable Cholestero l: less than 200 mg/dLBorderline High Cholesterol: 200-239 mg/dLHigh Cholesterol: greater than 239 mg/dL LDL Cholesterol Calculated 77 <100 mg/dL [facility] Comment:Desirable LDL: less than 100 mg/dLNear Optimal/Above Optimal LDL: 110- 129 mg/dLBorderline High LDL: 130-159 mg/dLHigh LDL: 160-189 mg/dLVery High LDL: greater than or equal to 190 mg/dL HDL Cholesterol 38(L) >40 mg/dL [facility] Comment:Desirable HDL: great er than 40 mg/dL Note: This HDL assay may give artificially low results in patients with liver disease. Blood Venous blood specimen / Unknown 12/10/2024 11:42 AM EDT 12/10/2024 11:42 AM EDT us Gordon Rose MD LAB BLOOD ORDERABL ES Final Result [facility] [address] [place] [address] [phone] * Hepatitis C Antibody with Reflex to HCV, RNA, Quantitative, Real-Time PCR (05/13/2024 2:24 PM EDT) Hepatitis C Antibody Nonreactive Nonreactive [facility] Comment:Antibodies to HCV no t detected; does not exclude early acuteHCV infection. Blood Venous blood specimen / Unknown 05/13/2024 2:24 PM EDT 05/13/2024 5:31 PM EDT Gordon Rose MD LAB BLOOD ORDERABL ES Final Result [facility] [address] [place] [phone] [phone] * BI Mammogram Screening Tomosynthesis Left (09/19/2023 12:35 PM EST) Anatomical Region Laterality Modality Breast Left Mammography 09/19/2023 12:3 5 PM EST Narrative 09/23/2023 10:08 AM EST [facility] [address] [place] [address] Mammography Report Signed Patient: Jodi Saenz MR#: [id number] : 1960 Acct:[id number] Age/Sex: 62 / F ADM Date: 09/19/23 Loc: HO.MAMMO Attending Dr: Sal Tabor CNM Ordering Physician: SAL TABOR CNM Results: 1 Negative Date of Service: 09/19/23 Follow Up: 1 Year From Orig ina Mammogram Procedure(s): MM tomosynthesis screening LT Accession Number(s): [id number] cc: SAL TABOR CNM EXAMINATION: MM SCREENING [...] in OV> 09/23/23 1004 DD/ 1235 TD/TT: Donor Relations Coordinator: Procedure Note Donotuseinterpreter, Image - 09/23/[facility] [address] [place] [address] Mammography Report Signed Patient: Jodi SaenzMR#: [id number] : 1960Acct:[id number] Age/Sex: 62 / FADM Date: 09/19/23 Loc: BLAZE Attending Dr: Sal Tabor CNM Ordering Physician: SAL TABORults: 1 Negative Date of Service: 09/19/23Follow Up: 1 Year From Orig inal Mammogram Procedure(s): MM tomosynthesis screening LT Accession Number(s): [id number] cc: SAL TABOR CNM EXAMINATION: MM SCREENING [...] in OV> 09/23/23 1004 DD/ 1235 TD/TT: Donor Relations Coordinator: Sal Paredeshadleyeleanormoriah CNM IMG BI PROCEDURES Final R esult [...] has been evaluated with computer assisted technology. [facility] Networking Specialist: SEE COMMENT [facility] Comment: SL, CT(ASCP) CT screening location: [place] [address] HPV nRNA E6/E7 Not Detected Not Detected [facility] Comment: Methodology: Jack Spooler Tender-Mediated Amplification This assay detects E6/E7 viral messenger RNA (mRNA) from 14 high-risk HPV types (16,18,31,33,35,39,45,51,52,56,58,59,66,68). Cervical sources are required for HPV testing. If a vaginal source from a patient who has had a total hysterectomy with removal of cervix was submitted, please contact the testing laboratory for alternative testing options. For additional information, please refer to http://education.Spavista/faq/XUN895t3 (This link if provided for information/ educational purposes only.) Interpretation/Res ult: SEE COMMENT [facility] Comment: Negative for intraepithelial lesion or malignancy. Atrophic pattern; predominantly parabasal cells LMP: NONE [facility] Prev. BX: NONE [facility] Prev. PAP: 03/2019 NIL/NEG HYST 2 CHERELLE 2011 [facility] Review Networking Specialist: SEE COMMENT [facility] Comment: [place], CT(ASCP) CT screening location: [place] [address] SOURCE: None given [facility] Statement Of Adequacy: SATISFACTORY FOR EVALUATION [facility] 04/10/2022 11:2 2 AM EDT Sal Tabor CNM LAB PATHOLOGY ORDERABLES Final Result [facility] [address] * MICROALBUMIN, RANDOM (05/31/2020 12:00 AM EST) Creatinine Urine 33.22 mg/dL [facility] Microalbum/Creati nine Ratio Ur TNP ug/mg cr [facility] Comment: Unable to calculate albumin/creatinine ratio due to low microalbumin or creatinine result. Microalbumin Urine <5.0 mg/L [facility] 05/31/2020 Historical Provider HISTORICAL/NON ORDERABLE LABS Final Result Performing Organization Address [facility] Co de Phone Number [facility] [address] * Hm Colonoscopy (11/24/2015 12:21 PM EDT) Historical Provider HEALTH MAINTENANCE Final Result from Last 3 Months or Most Recently Relevant to Health Maintenance Insurance [facility] Care Teams Welt Stitcher Relationship Specialty Start Date End Date Gordon Velez MD [address] [place] [address] PCP - General Internal Medicine 11/30/19
--- OUTSIDE RECORDS SUMMARY | 2025-06-18 11:10 | XMS_ITS | Encounter Summary ---
Author Organization [employer] Address 75 [facility] 7 [place] [address] Care Team Providers Care Air Conditioning Unit Assembler Name Role Phone Gordon Velez MD Primary Care Prov ider Reason for Visit * Reason Onset Date Comments Prior Authorization 10/01/2024 Encounter Details Date Type Department Care Team (Late st Contact Info) Description 10/01/2024 Telephone [facility] MEDICINE [address] [place] [address] Gordon Velez MD 505 [place], [place] [phone] Prior Authorization Social History Tobacco Use Types [...] TRUEplus Lancets 33G misc. Contact pt at [phone] * Telephone Encounter - Alec Moran - 10/01/2024 12:35 PM EDT Tc from pt requesting PA for med [employer] Lancets 33G misc. Contact pt at [phone] documented in this encounter Plan of Treatment Upcoming Encounters Date Type Department Care Team (Late st Contact Info) Description 07/05/2025 1:30 PM EST Office Visit [facility] MED & PEDS 505 [place] [address] Gordon Velez MD 505 [place] [address] documented as of this encounter Visit Diagnoses Not on filedocumented in this encounter Additional Health Concerns Assessment Noted Time PHQ-9 Depression Total Score: 18 024 1:56 PM EDT documented as of this encounter Care Teams Air Conditioning Unit Assembler Relationship Specialty Start Date End Date Gordon Velez MD [address] [place] [address] PCP - General Internal Medicine 11/30/19 documented as of this encounter
--- OUTSIDE RECORDS SUMMARY | 2025-06-18 11:10 | XMS_ITS | Encounter Summary ---
Author Organization [employer] Address 75 [facility] 7t [place] [address] Care Team Providers Care Manager Life Insurance Name Role Phone Gordon Velez MD Primary Care Prov ider Reason for Visit * Reason Onset Date Comments Nurse Triage 01/18/2025 Encounter Details Date Type Department Care Team ([facility] st Contact Info) Description 01/18/2025 Telephone [facility] MEDICINE [address] [place] [address] Gordon Velez MD 505 [place], [place] [phone] Nurse Triage Social History Tobacco Use Types [...] 01/18/2025 10:29 AM EDT Triage call with [facility] violin restorer , [place] [address], Called Pt number [phone] x. Call would connect and fail. Unable to reach Pt. * Telephone Encounter - Macario Segura - 01/18/2025 10:11 AM EDT Symptom: Hip Pain - Not From Injury Outcome: Schedule an appointment to be seen within 24 hours Reason: Caller denied all higher acuity questions Please contact pt at [phone]. (Icelandic Speaker) documented in this encounter Plan of Treatment Upcoming Encounters Date Type Department Care Team ([facility] st Contact Info) Description 07/05/2025 1:30 PM EST Office Visit [facility] MED & PEDS [address] [place], [place] [phone] Gordon Velez MD 505 [place], [place] [phone] documented as of this encounter Visit Diagnoses Not on filedocumented in this encounter Additional Health Concerns Assessment Noted Time PHQ-9 Depression Total Score: 5 10/17/19 25 10:16 AM EDT documented as of this encounter Care Teams Manager Life Insurance Relationship Specialty Start Date End Date Gordon Velez MD 505 [place] [address] PCP - General Internal Medicine 11/30/19 documented as of this encounter
--- OUTSIDE RECORDS SUMMARY | 2025-06-18 11:10 | XMS_ITS | Encounter Summary ---
Author Organization [employer] Address 75 [facility] 7 [place] [address] Care Team Providers Care Information Receptionist Name Role Phone Gordon Velez MD Primary Care Prov ider Reason for Visit * Reason Onset Date Comments Appointment Request 02/04/2025 Encounter Details Date Type Department Care Team ([facility] Contact Info) Description 02/04/2025 Telephone [facility] CHC MED & PEDS [address] [place] [address] Gordon Velez MD [address] [place] [address] Appointment Request Social History Tobacco Use Types [...] be scheduled in mar. Contact pt at [phone] documented in this encounter Plan of Treatment Upcoming Encounters Date Type Department Care Team (Late st Contact Info) Description 07/05/2025 1:30 PM EST Office Visit [facility] MED & PEDS [address] [place] [address] Gordon Velez MD [address] [place] [address] documented as of this encounter Visit Diagnoses Not on filedocumented in this encounter Additional Health Concerns Assessment Noted Time PHQ-9 Depression Total Score: 5 10/17/19 25 10:16 AM EDT documented as of this encounter Care Teams Information Receptionist Relationship Specialty Start Date End Date Gordon Velez MD [address] [place] [address] PCP - General Internal Medicine 11/30/19 documented as of this encounter
--- OUTSIDE RECORDS SUMMARY | 2025-06-18 11:10 | XMS_ITS | Encounter Summary ---
Author Organization [employer] Address 75 [facility] 7t [place] [address] Care Team Providers Care Railroad Dining Car Stewardess Name Role Phone Gordon Velez MD Primary Care Prov ider Encounter Details Date Type Department Care Team ([facility] st Contact Info) Description 05/13/2024 Orders Only [facility] CHC MED & PEDS [address] [place], [place] [phone] Gordon Velez MD [address] [place] [address] Social History Tobacco Use Types Packs/Day Years [...] Upcoming Encounters Date Type Department Care Team ([facility] Contact Info) Description 07/05/2025 1:30 PM EST Office Visit [facility] CHC MED & PEDS [address] [place] [address] FamGordon Salas MD [address] [place] [address] documented as of this encounter Procedures Procedure Name Priority Date/Time Associated Diagnosis Comments TSH Routine 05/13/2024 2:24 PM EDT T4, FREE Routine 05/13/2024 2:24 PM EDT documented in this encounter Results * T4, Free (05/13/2024 2:24 PM EDT) Free T4 (Free Thyroxine) 0.98 0.71 - 1.85 ng/dL [facility] 05/13/2024 2:24 PM EDT 05/13/2024 5:31 PM EDT us Generic External Data Provider LAB BLOOD ORDERAB LES Final Result [facility] [address] [place] [address] [phone] * (ABNORMAL) TSH (05/13/2024 2:24 PM EDT) Thyroid Stimulating Hormone 0.20(L) 0.32 - 4.0 uIU/mL [facility] Comment:TSH 3rd Generation ( [facility]) 05/13/2024 2:24 PM EDT 05/13/2024 5:31 PM EDT us Generic External Data Provider LAB BLOOD ORDERAB LES Final Result [facility] [address] [place] [address] [phone] documented in this encounter Visit Diagnoses Not on filedocumented in this encounter Additional Health Concerns Assessment Noted Time PHQ-9 Depression Total Score: 18 024 1:56 PM EDT documented as of this encounter Care Teams Railroad Dining Car Stewardess Relationship Specialty Start Date End Date Gordon Velez MD [address] [place] [address] PCP - General Internal Medicine 11/30/19 documented as of this encounter
--- OUTSIDE RECORDS SUMMARY | 2025-06-18 11:10 | XMS_ITS | Encounter Summary ---
Author Organization [employer] Address 75 [facility] 7 [place] [address] Care Team Providers Care Web Systems Developer Name Role Phone Gordon Velez MD Primary Care Prov ider Reason for Visit * Reason Comments Med Refill Encounter Details Date Type Department Care Team ([facility] st Contact Info) Description 08/13/2024 Refill [facility] CHC MED & PEDS [address] [place], [place] [phone] Gordon Velez MD 505 [place] [address] Social History Tobacco Use Types Packs/Day Years [...] 07/05/2025 1:30 PM EST Office Visit [facility] MED & PEDS [address] [place] [address] Gordon Velez MD 505 [place] [address] documented as of this encounter Visit Diagnoses Not on filedocumented in this encounter Additional Health Concerns Assessment Noted Time PHQ-9 Depression Total Score: 18 024 1:56 PM EDT documented as of this encounter Care Teams Web Systems Developer Relationship Specialty Start Date End Date Gordon Velez MD [address] [place] [address] PCP - General Internal Medicine 11/30/19 documented as of this encounter
--- OUTSIDE RECORDS SUMMARY | 2025-06-18 11:10 | XMS_ITS | Encounter Summary ---
Author Organization [employer] Address 75 [facility] 7 [place] [address] Care Team Providers Care Plating Engineer Name Role Phone Gordon Velez MD Primary Care Prov ider Encounter Details Date Type Department Care Team (Late Contact Info) Description 02/11/2023 Orders Only [facility] MEDICINE [address] [place] [address] Shannan Greene LPN Social History Tobacco Use [...] Description 07/05/2025 1:30 PM EST Office Visit [facility] CHC MED & PEDS 505 [place], [place] [phone] Gordon Velez MD 505 [place], [place] [phone] documented as of this encounter Visit Diagnoses Not on filedocumented in this encounter Care Teams Plating Engineer Relationship Specialty Start Date End Date Gordon Velez MD [address] [place] [address] PCP - General Internal Medicine 11/30/19 documented as of this encounter
--- OUTSIDE RECORDS SUMMARY | 2025-06-18 11:10 | XMS_ITS | Encounter Summary ---
Author Organization [employer] Address 75 [facility] 7t [place] [address] Care Team Providers Care Claims Administrator Name Role Phone Gordon Velez MD Primary Care Prov ider Encounter Details Date Type Department Care Team ([facility] st Contact Info) Description 10/07/2024 Orders Only [facility] CHC MED & PEDS [address] [place], [place] [phone] Gordon Velez MD [address] [place] [address] Type 2 diabetes mellitus without complication, without long-term current use of insulin ([facility]) Social History Tobacco Use Types Packs/Day Years [...] Upcoming Encounters Date Type Department Care Team ([facility] st Contact Info) Description 07/05/2025 1:30 PM EST Office Visit [facility] CHC MED & PEDS [address] [place] [address] Gordon Velez MD [address] [place] [address] documented as of this encounter Visit Diagnoses Diagnosis Type 2 diabetes mellitus without complication, without long-term current use of insulin (HCC) documented in this encounter Additional Health Concerns Assessment Noted Time PHQ-9 Depression Total Score: 18 024 1:56 PM EDT documented as of this encounter Care Teams Claims Administrator Relationship Specialty Start Date End Date Gordon Velez MD [address] [place] [address] PCP - General Internal Medicine 11/30/19 documented as of this encounter
--- OUTSIDE RECORDS SUMMARY | 2025-06-18 11:10 | XMS_ITS | Encounter Summary ---
Author Organization [employer] Address 75 [facility] 7 [place] [address] Care Team Providers Care Corporate Representative Name Role Phone Gordon Velez MD Primary Care Prov ider Reason for Visit * Reason Onset Date Comments Nurse Triage 01/28/2025 Encounter Details Date Type Department Care Team ([facility] st Contact Info) Description 01/28/2025 Telephone C CHC MED & PEDS [address] [place] [address] Gordon Velez MD [address] [place] [address] Nurse Triage Social History Tobacco Use Types [...] caller accepted this outcome. Contact pt at [phone] documented in this encounter Plan of Treatment Upcoming Encounters Date Type Department Care Team ([facility] st Contact Info) Description 07/05/2025 1:30 PM EST Office Visit [facility] MED & PEDS [address] [place] [address] Gordon Velez MD [address] [place] [address] documented as of this encounter Visit Diagnoses Not on filedocumented in this encounter Additional Health Concerns Assessment Noted Time PHQ-9 Depression Total Score: 5 10/17/19 25 10:16 AM EDT documented as of this encounter Care Teams Corporate Representative Relationship Specialty Start Date End Date Gordon Velez MD [address] [place] [address] PCP - General Internal Medicine 11/30/19 documented as of this encounter
--- OUTSIDE RECORDS SUMMARY | 2025-06-18 11:10 | XMS_ITS | Encounter Summary ---
Author Organization [employer] Address 75 [facility] 7t [place] [address] Care Team Providers Care Salon Sales Consultant Name Role Phone Gordon Velez MD Primary Care Prov ider Encounter Details Date Type Department Care Team ([facility] st Contact Info) Description 02/01/2025 Orders Only [facility] CHC MED & PEDS [address] [place], [place] [phone] Gordon Velez MD 505 [place], [place] [phone] Social History Tobacco Use Types Packs/Day Years [...] Upcoming Encounters Date Type Department Care Team ([facility] st Contact Info) Description 07/05/2025 1:30 PM EST Office Visit [facility] CHC MED & PEDS [address] [place] [address] Gordon Velez MD [address] [place] [address] documented as of this encounter Visit Diagnoses Not on filedocumented in this encounter Additional Health Concerns Assessment Noted Time PHQ-9 Depression Total Score: 5 10/17/19 25 10:16 AM EDT documented as of this encounter Care Teams Salon Sales Consultant Relationship Specialty Start Date End Date Gordon Velez MD 505 [place] [address] PCP - General Internal Medicine 11/30/19 documented as of this encounter
--- OUTSIDE RECORDS SUMMARY | 2025-06-18 11:10 | XMS_ITS | Encounter Summary ---
Author Organization [employer] Address 75 [facility] 7 [place] [address] Care Team Providers Care Assistant Inventory Manager Name Role Phone Gordon Velez MD Primary Care Prov ider Reason for Visit * Reason Onset Date Comments Med Request 09/17/2024 Encounter Details Date Type Department Care Team ([facility] st Contact Info) Description 09/17/2024 Telephone [facility] MEDICINE [address] [place] [address] Gordon Velez MD 505 [place], [place] [phone] Med Request Social History Tobacco Use Types [...] AM EST Tc from pt requesting medication Jbtszlt-Aajplmt-Tkmuxc Collin (Medicated Pain Relieving) 1.2-5.7-6.3 % patch to be sent to [facility], pt inform she needs a better dosage for pain. documented in this encounter Plan of Treatment Upcoming Encounters Date Type Department Care Team (Late st Contact Info) Description 07/05/2025 1:30 PM EST Office Visit [facility] MED & PEDS [address] [place] [address] Gordon Velez MD [address] [place] [address] documented as of this encounter Visit Diagnoses Not on filedocumented in this encounter Additional Health Concerns Assessment Noted Time PHQ-9 Depression Total Score: 18 024 1:56 PM EDT documented as of this encounter Care Teams Assistant Inventory Manager Relationship Specialty Start Date End Date Gordon Velez MD [address] [place] [address] PCP - General Internal Medicine 11/30/19 documented as of this encounter
--- OUTSIDE RECORDS SUMMARY | 2025-06-18 11:11 | XMS_ITS | Encounter Summary ---
Author Organization [employer] Address [address] [place] [address] [place], [place] [address] Care Team Providers Care Industry Operations Investigator Name Role Phone Gordon Velez MD Primary Care Prov ider Encounter Details Date Type Department Care Team (Late Contact Info) Description 11/21/2022 Orders Only [facility] MED & PEDS [address] [place], [place] [phone] Gordon Velez MD [address] [place], [place] [phone] Social History Tobacco Use Types Packs/Day Years [...] Description 07/05/2025 1:30 PM EST Office Visit [facility] MED & PEDS [address] [place], [place] [phone] Gordon Velez MD [address] [place], [place] [phone] documented as of this encounter Visit Diagnoses Not on filedocumented in this encounter Care Teams Industry Operations Investigator Relationship Specialty Start Date End Date Gordon Velez MD [address] [place] [address] PCP - General Internal Medicine 11/30/19 documented as of this encounter
--- OUTSIDE RECORDS SUMMARY | 2025-06-18 11:11 | XMS_ITS | Encounter Summary ---
Author Organization [employer] Address [address] [address] Care Team Providers Care Chefs Name Role Phone Gordon Velez MD Primary Care Prov ider Reason for Visit * Reason Onset Date Comments PT1 02/06/2023 Encounter Details Date Type Department Care Team ([facility] Contact Info) Description 02/06/2023 Telephone [facility] CHC MED & PEDS [address] [place] [address] Gordon Velez MD 505 [place] [address] PT1 Social History Tobacco Use Types Packs/Day [...] encounter Miscellaneous Notes * Telephone Encounter - Nickei Cheney - 02/06/2023 1:26 PM EDT Tc from pt requesting PT1 Date: 02/21/23 Time: 12:15 Address: [address] [place] [address] Specialty: endocrinology Manager Baby: yes Wheelchair: no, cane documented in this encounter Plan of Treatment Upcoming Encounters Date Type Department Care Team (Late st Contact Info) Description 07/05/2025 1:30 PM EST Office Visit [facility] MED & PEDS [address] [place] [address] Gordon Velez MD [address] [place] [address] documented as of this encounter Visit Diagnoses Not on filedocumented in this encounter Care Teams Chefs Relationship Specialty Start Date End Date Gordon Velez MD [address] [place] [address] PCP - General Internal Medicine 11/30/19 documented as of this encounter
--- OUTSIDE RECORDS SUMMARY | 2025-06-18 11:11 | XMS_ITS | Encounter Summary ---
Author Organization [employer] Address 75 [facility] 7 [place] [address] Care Team Providers Care Absorption And Adsorption Engineer Name Role Phone Gordon Velez MD Primary Care Prov ider Reason for Visit * Reason Onset Date Comments Med Refill 11/04/2024 Encounter Details Date Type Department Care Team ([facility] st Contact Info) Description 11/04/2024 Telephone [facility] CHC MED & PEDS [address] [place] [address] Gordon Velez MD [address] [place] [address] Med Refill Social History Tobacco Use Types [...] chart. PCP will not be refilling med. [employer] nurses tried contacting pt to inform. * Telephone Encounter - Kasandra Vidal - 11/04/2024 12:50 PM EDT TC from pt requesting medication refill. Medications needing refill : oxyCODONE-acetaminophen (Percocet) 5-325 MG tablet To be sent to: [facility] [place] - [address] [facility] documented in this encounter Plan of Treatment Upcoming Encounters Date Type Department Care Team (Late st Contact Info) Description 07/05/2025 1:30 PM EST Office Visit [facility] CHC MED & PEDS [address] [place] [address] Gordon Velez MD [address] [place] [address] documented as of this encounter Visit Diagnoses Not on filedocumented in this encounter Additional Health Concerns Assessment Noted Time PHQ-9 Depression Total Score: 5 10/17/19 25 10:16 AM EDT documented as of this encounter Care Teams Absorption And Adsorption Engineer Relationship Specialty Start Date End Date Gordon Velez MD [address] [place] [address] PCP - General Internal Medicine 11/30/19 documented as of this encounter
--- OUTSIDE RECORDS SUMMARY | 2025-06-18 11:11 | XMS_ITS | Encounter Summary ---
Author Organization [employer] Address 75 [facility] 7 [place] [address] Care Team Providers Care Heel Seat Fitter Name Role Phone Gordon Velez MD Primary Care Prov ider Reason for Visit * Reason Onset Date Comments Mamogram Order 05/15/2024 Encounter Details Date Type Department Care Team ([facility] st Contact Info) Description 05/15/2024 Telephone [facility] MEDICINE [address] [place] [address] Gordon Velez MD [address] [place], [place] [phone] Mamogram Order Social History Tobacco Use Types [...] any questions you can contact pt at [phone]. (Luxembourgish Speaker) documented in this encounter Plan of Treatment Upcoming Encounters Date Type Department Care Team ([facility] st Contact Info) Description 07/05/2025 1:30 PM EST Office Visit [facility] MED & PEDS [address] [place] [address] Gordon Velez MD [address] [place] [address] documented as of this encounter Visit Diagnoses Not on filedocumented in this encounter Additional Health Concerns Assessment Noted Time PHQ-9 Depression Total Score: 18 024 1:56 PM EDT documented as of this encounter Care Teams Heel Seat Fitter Relationship Specialty Start Date End Date Gordon Velez MD [address] [place] [address] PCP - General Internal Medicine 11/30/19 documented as of this encounter
--- OUTSIDE RECORDS SUMMARY | 2025-06-18 11:11 | XMS_ITS | Encounter Summary ---
Author Organization [employer] Address 75 [facility] 7 [place] [address] Care Team Providers Care Sales Broker Name Role Phone Gordon Velez MD Primary Care Prov ider Reason for Visit * Reason Onset Date Comments Med Refill 06/02/2024 Encounter Details Date Type Department Care Team ([facility] st Contact Info) Description 06/02/2024 Telephone [facility] MEDICINE [address] [place] [address] Gordon Velez MD [address] [place], [place] [phone] Med Refill Social History Tobacco Use Types [...] 50 MG tablet To be sent to: [facility] - [place], [place] - [address] [place] [address] documented in this encounter Plan of Treatment Upcoming Encounters Date Type Department Care Team (Late st Contact Info) Description 07/05/2025 1:30 PM EST Office Visit [facility] CHC MED & PEDS [address] [place] [address] Gordon Velez MD [address] [place] [address] documented as of this encounter Visit Diagnoses Not on filedocumented in this encounter Additional Health Concerns Assessment Noted Time PHQ-9 Depression Total Score: 18 024 1:56 PM EDT documented as of this encounter Care Teams Sales Broker Relationship Specialty Start Date End Date Gordon Velez MD [address] [place] [address] PCP - General Internal Medicine 11/30/19 documented as of this encounter
--- OUTSIDE RECORDS SUMMARY | 2025-06-18 11:11 | XMS_ITS | Encounter Summary ---
Author Organization [employer] Address [address] [facility] 7 [place] [address] Care Team Providers Care Machine Shop Helper Name Role Phone Gordon Velez MD Primary Care Prov ider Reason for Visit * Reason Onset Date Comments Medication Question 06/07/2025 Encounter Details Date Type Department Care Team ([facility] Contact Info) Description 06/07/2025 Telephone [facility] CHC MED & PEDS [address] [place] [address] Gordon Velez MD 505 [place] [address] Medication Question Social History Tobacco Use Types [...] encounter Miscellaneous Notes * Telephone Encounter - Brendan Youngblood - 06/07/2025 3:42 PM EST Tc from pt requesting freestyle test strips that insurance is no longer going to cover . They sent pt one touch as an alternative but pt had freestyle lite monitor . Pt requesting a call back to discuss what next steps are Contact pt at [phone] (frisian) documented in this encounter Plan of Treatment Upcoming Encounters Date Type Department Care Team (Late st Contact Info) Description 07/05/2025 1:30 PM EST Office Visit [facility] CHC MED & PEDS 505 [place], [place] [phone] Gordon Velez MD [address] [place], [place] [phone] documented as of this encounter Goals Goal [...] as of this encounter Care Teams Machine Shop Helper Relationship Specialty Start Date End Date Gordon Velez MD [address] [place] [address] PCP - General Internal Medicine 11/30/19 documented as of this encounter
--- OUTSIDE RECORDS SUMMARY | 2025-06-18 11:11 | XMS_ITS | Encounter Summary ---
Author Organization [employer] Address 75 [facility] 7 [place] [address] Care Team Providers Care Fruit Packer Face And Fill Name Role Phone Gordon Velez MD Primary Care Prov ider Reason for Visit * Reason Comments Med Refill Encounter Details Date Type Department Care Team ([facility] st Contact Info) Description 07/30/2024 Refill [facility] CHC MED & PEDS 505 [place], [place] [phone] Gordon Velez MD 505 [place] [address] Chronic midline low back pain without sciatica [...] to pt regarding message below. Called via [email or web address].com[employer] ID# [id number]. F/u with PCP Re: pain scheduled for 08/07/24 @10:30am. * Telephone Encounter - AUDI Woodard - 07/31/2024 5:18 PM EST Last med refill on 07/07/24 following televisit for hip pain. Does not appear to be on DEHORNER. Will defer refill until PCP returns. She should be seen for an appt if pain is worsening. Thank you! documented in this encounter Plan of Treatment Upcoming Encounters Date Type Department Care Team ([facility] st Contact Info) Description 07/05/2025 1:30 PM EST Office Visit [facility] MED & PEDS [address] [place] [address] Gordon Velez MD 505 [place] [address] documented as of this encounter Visit Diagnoses Diagnosis Chronic midline low back pain without sciatica documented in this encounter Additional Health Concerns Assessment Noted Time PHQ-9 Depression Total Score: 18 024 1:56 PM EDT documented as of this encounter Care Teams Fruit Packer Face And Fill Relationship Specialty Start Date End Date Gordon Velez MD 505 [place] [address] PCP - General Internal Medicine 11/30/19 documented as of this encounter
--- OUTSIDE RECORDS SUMMARY | 2025-06-18 11:11 | XMS_ITS | Encounter Summary ---
Author Organization [employer] Address 75 [facility] 7t [place] [address] Care Team Providers Care Supervisor Wet Room Name Role Phone Gordon Velez MD Primary Care Prov ider Reason for Visit * Reason Onset Date Comments Appointment Request 07/10/2023 Encounter Details Date Type Department Care Team ([facility] st Contact Info) Description 07/10/[address] [facility] MEDICINE [address] [place] [address] Gordon Velez MD 505 [place], [place] [phone] Appointment Request Social History Tobacco Use Types [...] 1:30 PM EST Office Visit [facility] MED & PEDS 505 [place] [address] Gordon Velez MD 505 [place] [address] documented as of this encounter Visit Diagnoses Not on filedocumented in this encounter Care Teams Supervisor Wet Room Relationship Specialty Start Date End Date Gordon Velez MD 505 [place] [address] PCP - General Internal Medicine 11/30/19 documented as of this encounter
--- OUTSIDE RECORDS SUMMARY | 2025-06-18 11:11 | XMS_ITS | Encounter Summary ---
Author Organization [employer] Address 75 [facility] 7 [place] [address] Care Team Providers Care Band Scroll Saw Operator Name Role Phone Gordon Velez MD Primary Care Prov ider Reason for Visit * Reason Onset Date Comments Med Refill 06/28/2023 Encounter Details Date Type Department Care Team ([facility] st Contact Info) Description 06/28/2023 Telephone [facility] CHC MED & PEDS 505 [place] [address] Gordon Velez MD 505 [place] [address] Med Refill Social History Tobacco Use Types [...] Medication is currently inactive Please sent to [facility] - [place], [place] - [address] [facility] documented in this encounter Plan of Treatment Upcoming Encounters Date Type Department Care Team (Late st Contact Info) Description 07/05/2025 1:30 PM EST Office Visit [facility] CHC MED & PEDS [address] [place] [address] Gordon Velez MD 505 [place] [address] documented as of this encounter Visit Diagnoses Not on filedocumented in this encounter Care Teams Band Scroll Saw Operator Relationship Specialty Start Date End Date Gordon Velez MD 505 [place] [address] PCP - General Internal Medicine 11/30/19 documented as of this encounter
--- OUTSIDE RECORDS SUMMARY | 2025-06-18 11:11 | XMS_ITS | Encounter Summary ---
Author Organization [employer] Address 75 [facility] 7 [place] [address] Care Team Providers Care Gamer Name Role Phone Gordon Velez MD Primary Care Prov ider Reason for Visit * Reason Comments Med Refill Encounter Details Date Type Department Care Team ([facility] st Contact Info) Description 11/15/2024 Refill [facility] CHC MED & PEDS [address] [place], [place] [phone] Gordon Velez MD 505 [place] [address] Severe persistent asthma without complication Social History [facility] 505 [place] [address] Gordon Velez MD 505 [place] [address] documented as of this encounter Visit Diagnoses Diagnosis Severe persistent asthma without complication (HCC) documented in this encounter Additional Health Concerns Assessment Noted Time PHQ-9 Depression Total Score: 5 10/17/19 25 10:16 AM EDT documented as of this encounter Care Teams Gamer Relationship Specialty Start Date End Date Gordon Velez MD 505 [place] [address] PCP - General Internal Medicine 11/30/19 documented as of this encounter
--- OUTSIDE RECORDS SUMMARY | 2025-06-18 11:11 | XMS_ITS | Encounter Summary ---
Author Organization [employer] Address 75 [facility] 7t [place] [address] Care Team Providers Care Eyeletter Name Role Phone Gordon Velez MD Primary Care Prov ider Reason for Visit * Reason Onset Date Comments Medication Question 07/31/2024 Encounter Details Date Type Department Care Team ([facility] st Contact Info) Description 07/31/2024 Telephone [facility] MEDICINE 230 [place] [address] Gordon Velez MD 505 [place], [place] [phone] Medication Question Social History Tobacco Use Types [...] 07/05/2025 1:30 PM EST Office Visit [facility] CHC MED & PEDS 505 [place], [place] [phone] Gordon Velez MD 505 [place] [address] documented as of this encounter Visit Diagnoses Not on filedocumented in this encounter Additional Health Concerns Assessment Noted Time PHQ-9 Depression Total Score: 18 024 1:56 PM EDT documented as of this encounter Care Teams Eyeletter Relationship Specialty Start Date End Date Gordon Velez MD [address] [place] [address] PCP - General Internal Medicine 11/30/19 documented as of this encounter
--- OUTSIDE RECORDS SUMMARY | 2025-06-18 11:11 | XMS_ITS | Encounter Summary ---
Author Organization [employer] Address 75 [facility] 7 [place] [address] Care Team Providers Care Dianeticist Name Role Phone Gordon Velez MD Primary Care Prov ider Reason for Visit * Reason Comments Med Refill Encounter Details Date Type Department Care Team ([facility] st Contact Info) Description 12/08/2024 Refill [facility] CHC MED & PEDS 505 [place], [place] [phone] Gordon Velez MD 505 [place] [address] Type 2 diabetes mellitus without complications (CMS/HCC) [...] Upcoming Encounters Date Type Department Care Team ([facility] st Contact Info) Description 07/05/2025 1:30 PM EST Office Visit [facility] MED & PEDS 505 [place] [address] Gordon Velez MD 505 [place] [address] documented as of this encounter Visit Diagnoses Diagnosis Type 2 diabetes mellitus without complications (HCC) documented in this encounter Additional Health Concerns Assessment Noted Time PHQ-9 Depression Total Score: 5 10/17/19 25 10:16 AM EDT documented as of this encounter Care Teams Dianeticist Relationship Specialty Start Date End Date Gordon Velez MD 505 [place] [address] PCP - General Internal Medicine 11/30/19 documented as of this encounter
--- OUTSIDE RECORDS SUMMARY | 2025-06-18 11:11 | XMS_ITS | Encounter Summary ---
Author Organization [employer] Address [address] [facility] 7t [place] [address] Care Team Providers Care Transportation Analyst Name Role Phone Gordon Velez MD Primary Care Prov ider Reason for Visit * Reason Comments Med Refill Encounter Details Date Type Department Care Team ([facility] st Contact Info) Description 06/18/2025 Refill [facility] MEDICINE [address] [place] [address] Sugar Burns MD [address] [place] [address] Social History Tobacco Use Types Packs/Day Years [...] Description 07/05/2025 1:30 PM EST Office Visit [facility] CHC MED & PEDS 505 [place] [address] Gordon Velez MD 505 [place] [address] documented as of this encounter Goals Goal [...] documented as of this encounter Care Teams Transportation Analyst Relationship Specialty Start Date End Date Gordon Velez MD [address] [place] [address] PCP - General Internal Medicine 11/30/19 documented as of this encounter
--- OUTSIDE RECORDS SUMMARY | 2025-06-18 11:11 | XMS_ITS | Encounter Summary ---
Author Organization [employer] Address 75 [facility] 7 [place] [address] Care Team Providers Care Jira Developer Name Role Phone Gordon Velez MD Primary Care Prov ider Reason for Visit * Reason Onset Date Comments Med Refill 12/08/2024 Encounter Details Date Type Department Care Team (Late st Contact Info) Description 12/08/2024 Telephone [facility] MEDICINE 230 [place] [address] Gordon Velez MD [address] [place], [place] [phone] Med Refill Social History Tobacco Use Types [...] 100 MG tablet To be sent to: [facility] [place], [place] - [address] [facility] documented in this encounter Plan of Treatment Upcoming Encounters Date Type Department Care Team (Late st Contact Info) Description 07/05/2025 1:30 PM EST Office Visit [facility] CHC MED & PEDS [address] [facility] [place] [address] Gordon Velez MD 505 [place] [address] documented as of this encounter Visit Diagnoses Not on filedocumented in this encounter Additional Health Concerns Assessment Noted Time PHQ-9 Depression Total Score: 5 10/17/19 25 10:16 AM EDT documented as of this encounter Care Teams Jira Developer Relationship Specialty Start Date End Date Gordon Velez MD [address] [place] [address] PCP - General Internal Medicine 11/30/19 documented as of this encounter
== END 2025-06-18 11:08 | disposition home or self-care (01) ==
LOC: HO.LAB 11:07
PROVIDERS: Visit Provider Student in an Organized Health Care Education/Training Program
DX: E89.0 Postprocedural hypothyroidism (principal); E55.9 Vitamin D deficiency, unspecified
CPT/HCPCS: 36415; 82306; 84443

== ENCOUNTER 2025-06-23 14:45 | Outpatient (AMB) | payer MEDICARE, MEDICAID, SELFPAY ==
[2025-06-23 14:44] VITALS: BP 104/62; PULSE 75; O2SAT 95; BMI 47.6
--- NOTE | 2025-06-23 14:44 | A.OFFVIS_ITS ---
Vital Signs 06/23/25 14:44 Height 5 ft 2 in Weight 260 lb 8 oz BMI 47.6 BP 104/62 Blood Pressure Location Lt brachial Position Sitting Pulse 75 Pulse Source Pulse Oximeter Pulse Oximetry (%) 95 Oxygen Delivery Method Room Air Intake Visit Reasons: 02/15 not set up + Let INP-Eval for Parkinson Intake Note: Migraine Headache, poisoning by unspecified narcotics, tremor ? Parkinson's Stove Tender Required: Yes Stove Tender Name: Will use Ipad Accompanied by: Spouse Allergies ibuprofen Allergy (Verified 06/23/25 14:44) Itching Medication List - Last Reconciled 06/23/25 by Shraddha Cartwright MD albuterol sulfate 90 mcg/actuation 2 puffs inhalation Q6H PRN aspirin 81 mg PO DAILY atorvastatin 40 mg PO DAILY baclofen 10 mg PO BEDTIME blood sugar diagnostic (FreeStyle Lite Strips) As directed bupropion HCl XL 300 mg PO DAILY bupropion HCl XL 150 mg PO QAM calcium carbonate (Oyster Shell Calcium 500) 500 mg PO BID cholecalciferol (vitamin D3) 25 mcg PO DAILY diclofenac sodium 1% 2 grams topical TID docusate sodium 100 mg PO BID fluticasone propionate 110 mcg/actuation (Flovent HFA) 1 puff inhalation BID fluticasone propionate 50 mcg/actuation 1 spray intranasal BID lancets (TRUEplus Lancets) As directed lanolin xvunmwt-zj-z.pet-ceres (Eucerin topical cream) 1 appl topical DAILY levothyroxine (Synthroid) 125 mcg PO DAILY loratadine 10 mg PO DAILY PRN lorazepam 1 mg PO DAILY PRN magnesium oxide 250 mg PO .qhs mirtazapine 7.5 mg PO BEDTIME polyethylene glycol 3350 17 grams PO DAILY sennosides (senna) 8.6 mg PO DAILY sitagliptin phosphate (Januvia) 100 mg PO DAILY HPI Comments Details: 64y/o female comes for evaluation of tremors. A certified Reel Blade Bender Furnace Tender helped with the visit today. she is a right handed female and started noticing tremors about 2 years in her right hand more than left hand. It is mostly with action. It can be intermittent. she denies any change in voice . Memory- normal SLeep- trouble falling asleep , snoring and hypersomnia , vivid dreams. Mood- depression and anxiety she has trouble with writing, using utensils, dressing , showering Gait-off balance had a few falls 3 years ago. Migraines- frequent headaches .more when under stress and humid. It is unilateral pounding pain with light and noise sensitivity she takes panadol. she has 2-3 episodes a week. No aura. 3 years she overdosed on opiates [facility] Medical History (Updated 06/23/25 @ 15:18 by Shraddha Cartwright MD) Migraine Tremors of nervous system Hypersomnia Snoring Cervicalgia Hypotension Osteoarthritis of knees, bilateral Fibromyalgia Hyperparathyroidism Vitamin D deficiency History of thyroid cancer Postsurgical hypothyroidism H/O malignant neoplasm of skin Lumbar spondylosis Vitamin D deficiency Osteopenia Dyslipidemia Diabetic polyneuropathy associated with type 2 diabetes mellitus Post-surgical hypothyroidism Primary thyroid cancer Diabetes type 2, controlled Surgical History History of lip cancer History of biopsy History of bunionectomy Hx of cholecystectomy Hx of thyroidectomy Hx of colonoscopy History of carpal tunnel release Hx of hysterectomy Hx of mastectomy Family History Father Diabetes mellitus Mother Cancer of eye Skin cancer of nose Social History Household Members: None Housing: Apartment Are you a primary hospice care sales consultant to a significant other at home: No Do you presently have visiting nurse or other home services: Yes ([facility]) Unable to assess alcohol history related to: Unable to respond Alcohol intake: never Comment: ref alarm, ambulating in room Patient Tobacco Use Status: Current everyday Tobacco user Substance Use Type: Opiates service: No Current occupational status: disabled Physical Exam Vital Signs: Last Vital Signs Pulse 75 06/23/25 14:44 BP 104/62 06/23/25 14:44 Pulse Ox 95 06/23/25 14:44 Oxygen Delivery Method Room Air 06/23/25 14:44 BMI result Body Mass Index 47.6 Const General: cooperative, healthy appearing and comfortable Nutritional Appearance: average body habitus Orientation/consciousness: patient oriented x3 Eyes Pupils: Equal, round and reactive pupils present Neuro Other: Severe restriction of neck movements Tightness and tenderness trung trapezius, levators, splenius and scalene muscles Trung postural tremors - mild FFM and foot taps decreased trung Gait antalgic General: patient oriented x3, tone normal, moves all extremities and no focal motor deficits Cranial nerves: Yes Facial sensation intact/muscles of mastication intact, Yes Equal, round and reactive pupils present, Yes Bilaterally intact EOM present, Yes Nystagmus not present, Yes Normal facial strength present, Yes Midline tongue present, Yes Symmetric palate elevation present and Yes Ability to bilaterally elevate shoulders present Cognition (Neuro): normal cognition Gait exam (Neuro): Antalgic gait present Deep tendon reflexes (DTR's): Right triceps reflex intensity grade: 2+, Left triceps reflex intensity grade: 2+, Rt Biceps (C5, C6): 2+, Left biceps reflex intensity grade: 2+, Right brachioradialis reflex intensity grade: 2+, Left b rachioradialis reflex intensity grade: 2+, Right patellar reflex intensity grade: 2+ and Left patellar reflex intensity grade: 2+ Coordination: sawtyh-kd-cwpa test normal Assessment & Plan Assessment & Plan (1) Tremors of nervous system: Code(s): R25.1 - Tremor, unspecified Category: Medical (2) Snoring: Code(s): R06.83 - Snoring Category: Medical (3) Hypersomnia: Code(s): G47.10 - Hypersomnia, unspecified Category: Medical (4) Migraine: Code(s): G43.909 - Migraine, unspecified, not intractable, without status migrainosus Category: Medical Plan I will trial her on baclofen 10 mg qhs for cervicalgia and refer to PT PSG to determine if she sleep apnea MRI brain to r/o structural causes magnesium 250mg qhs for migraine prophylaxis Orders: Orders RT PSG in-lab sleep study Today G47.10 - Hypersomnia, unspecified, R06.83 - Snoring MR head/brain wo con Today R25.1 - Tremor, unspecified PT Evaluation and Treatment Today M54.2 - Cervicalgia Medications: New magnesium oxide 250 mg PO .qhs 30 tabs 6RF baclofen 10 mg PO BEDTIME 30 tabs 3RF Coding Level of Care Code New Pt Level 4 (68386) Complex visit Add On G2211 Diagnoses Tremors of nervous system R25.1 Snoring R06.83 Hypersomnia G47.10 Migraine G43.909
--- OUTSIDE RECORDS SUMMARY | 2025-06-23 17:42 | XMS_ITS | Encounter Summary ---
Author Organization [employer] Address 75 [facility] 7t [place] [address] Care Team Providers Care Pool Finisher Name Role Phone Gordon Velez MD Primary Care Prov ider Reason for Visit * Reason Onset Date Comments Nurse Triage 01/18/2025 Encounter Details Date Type Department Care Team ([facility] st Contact Info) Description 01/18/2025 Telephone [facility] MEDICINE [address] [place] [address] Gordon Velez MD 505 [place], [place] [phone] Nurse Triage Social History Tobacco Use Types [...] 01/18/2025 10:29 AM EDT Triage call with [facility] gas plumbing inspector , [place] [address], Called Pt number [phone] 3 x. Call would connect and fail. Unable to reach Pt. * Telephone Encounter - Macario Segura - 01/18/2025 10:11 AM EDT Symptom: Hip Pain - Not From Injury Outcome: Schedule an appointment to be seen within 24 hours Reason: Caller denied all higher acuity questions Please contact pt at [phone]. (Taiwanese Speaker) documented in this encounter Plan of Treatment Upcoming Encounters Date Type Department Care Team ([facility] st Contact Info) Description 07/05/2025 1:30 PM EST Office Visit [facility] MED & PEDS [address] [place], [place] [phone] Gordon Velez MD [address] [place], [place] [phone] documented as of this encounter Visit Diagnoses Not on filedocumented in this encounter Additional Health Concerns Assessment Noted Time PHQ-9 Depression Total Score: 5 10/17/19 25 10:16 AM EDT documented as of this encounter Care Teams Pool Finisher Relationship Specialty Start Date End Date Gordon Velez MD [address] [place] [address] PCP - General Internal Medicine 11/30/19 documented as of this encounter
--- OUTSIDE RECORDS SUMMARY | 2025-06-23 17:42 | XMS_ITS | Encounter Summary ---
Author Organization [employer] Address 75 [facility] 7 [place] [address] Care Team Providers Care Log Driver Name Role Phone Gordon Velez MD Primary Care Prov ider Reason for Visit * Reason Onset Date Comments Prior Authorization 10/01/2024 Encounter Details Date Type Department Care Team (Late st Contact Info) Description 10/01/2024 Telephone [facility] MEDICINE [address] [place] [address] Gordon Velez MD [address] [place], [place] [phone] Prior Authorization Social History Tobacco Use Types [...] TRUEplus Lancets 33G misc. Contact pt at [phone] * Telephone Encounter - Alec Moran - 10/01/2024 12:35 PM EDT Tc from pt requesting PA for med TRUEplus Lancets 33G misc. Contact pt at [phone] documented in this encounter Plan of Treatment Upcoming Encounters Date Type Department Care Team (Late st Contact Info) Description 07/05/2025 1:30 PM EST Office Visit [facility] CHC MED & PEDS [address] [place] [address] Gordon Velez MD [address] [place] [address] documented as of this encounter Visit Diagnoses Not on filedocumented in this encounter Additional Health Concerns Assessment Noted Time PHQ-9 Depression Total Score: 18 024 1:56 PM EDT documented as of this encounter Care Teams Log Driver Relationship Specialty Start Date End Date Gordon Velez MD [address] [place] [address] PCP - General Internal Medicine 11/30/19 documented as of this encounter
--- OUTSIDE RECORDS SUMMARY | 2025-06-23 17:42 | XMS_ITS | Encounter Summary ---
Author Organization [employer] Address 75 [facility] 7t [place] [address] Care Team Providers Care Interior Decorator Paperhanging Name Role Phone Gordon Velez MD Primary Care Prov ider Encounter Details Date Type Department Care Team ([facility] st Contact Info) Description 10/07/2024 Orders Only [facility] CHC MED & PEDS 505 [place], [place] [phone] Gordon Velez MD 505 [place] [address] Type 2 diabetes mellitus without complication, without long-term current use of insulin ([facility]) Social History Tobacco Use Types Packs/Day Years [...] ([facility] st Contact Info) Description 07/05/2025 1:30 PM EST Office Visit [facility] CHC MED & PEDS [address] [place] [address] Gordon Velez MD [address] [place] [address] documented as of this encounter Visit Diagnoses Diagnosis Type 2 diabetes mellitus without complication, without long-term current use of insulin (HCC) documented in this encounter Additional Health Concerns Assessment Noted Time PHQ-9 Depression Total Score: 18 024 1:56 PM EDT documented as of this encounter Care Teams Interior Decorator Paperhanging Relationship Specialty Start Date End Date Gordon Velez MD [address] [place] [address] PCP - General Internal Medicine 11/30/19 documented as of this encounter
--- OUTSIDE RECORDS SUMMARY | 2025-06-23 17:42 | XMS_ITS | Encounter Summary ---
Author Organization [employer] Address [address] [place] [phone] Care Team Providers Care Elevator Serviceman Name Role Phone Gordon Velez MD Primary Care Prov ider Encounter Details Date Type Department Care Team (Late st Contact Info) Description 07/10/2022 Orders Only [facility] [address] [place] [address] Katey Campos LPN Social History Tobacco Use [...] PM EST Office Visit [facility] [address] [place] [address] Gordon Velez MD [address] [place] [address] documented as of this encounter Procedures Procedure [...] AM EDT) Thyroglobulin Antibody <1 <=1 IU/mL [facility] Comment:This Thyroglobulin a ntibody test was performedusing the Agustín [place] Chemiluminescent method.Values obtained from different assay methods cannot beused interchangeably. Thyroglobulin antibody levels,regardless of value, should not be interpreted asabsolute evidence of the presence or absence ofdisease. Thyroglobulin, LC/MS/MS TNP [facility] Thyroglobulin Level 0.5(A) ng/mL [facility] Comment:Reference Range: Ath yrotic: <0.1 ng/mLReference range applies to differentiated thyroidcancer patients following treatment. The presence ofmeasurable thyroglobulin indicates the presence ofthyroglobulin-producing thyroid tissue. Clinicalcorrelation is advised.This Thyroglobulin test was performed using theDatapipe [place] Chemiluminescent method. Valuesobtained from different assay methods cannot beused interchangeably. Thyroglobulin levels, regardlessof value, should not be interpreted as absoluteevidence of the presence or absence of disease.THIS TEST WAS PERFORMED AT:[employer]/YAZUO [id number] [place] [address]PCTVNGD W. MASON,MD,PHD 11/13/2022 11:2 9 AM EDT 11/13/2022 11:29 AM EDT [facility] External Provider LAB BLO OD ORDERABLES Final Result Performing Organization Address [facility] Co de Phone Number [facility] [address] [place] [phone] * (ABNORMAL) TSH (11/13/2022 11:29 AM EDT) Thyroid Stimulating Hormone 24.45(H) 0.32 - 4.0 uIU/mL [facility] Comment:Note: A sustained TS H level above 2.5 uIU/mL may warrant further investigation. TSH 3rd Generation ([facility]) 11/13/2022 11:2 9 AM EDT 11/13/2022 11:29 AM EDT [facility] External Provider LAB BLO OD ORDERABLES Final Result Performing Organization Address [facility] Co de Phone Number [facility] [address] [place] [phone] * (ABNORMAL) T4, Free (11/13/2022 11:29 AM EDT) Free T4 (Free Thyroxine) <0.42(L) 0.71 - 1.85 ng/dL [facility] 11/13/2022 11:2 9 AM EDT 11/13/2022 11:29 AM EDT [facility] External Provider LAB BLO OD ORDERABLES Final Result Performing Organization Address City/[facility]/ZIP Co de Phone Number [facility] [address] [place] [phone] * (ABNORMAL) Thyroblobulin, Tumor Marker w/Reflex (11/08/2022 1:14 PM EDT) Thyroglobulin Antibody <1 <=1 IU/mL [facility] Comment:This Thyroglobulin a ntibody test was performedusing the adQuota Chemiluminescent method.Values obtained from different assay methods cannot beused interchangeably. Thyroglobulin antibody levels,regardless of value, should not be interpreted asabsolute evidence of the presence or absence ofdisease. Thyroglobulin, LC/MS/MS TNP [facility] Thyroglobulin Level 0.3(A) ng/mL [facility] Comment:Reference Range: Ath yrotic: <0.1 ng/mLReference range applies to differentiated thyroidcancer patients following treatment. The presence ofmeasurable thyroglobulin indicates the presence ofthyroglobulin-producing thyroid tissue. Clinicalcorrelation is advised.This Thyroglobulin test was performed using theadQuota Chemiluminescent method. Valuesobtained from different assay methods cannot beused interchangeably. Thyroglobulin levels, regardlessof value, should not be interpreted as absoluteevidence of the presence or absence of disease.THIS TEST WAS PERFORMED AT:[employer]/MARTINEZ [id number] [place] [address]MSQZTSJEDVIN REID MD,PHD 11/08/2022 1:14 PM EDT 11/08/2022 1:14 PM EDT [facility] External Provider LAB BLO OD ORDERABLES Final Result Performing Organization Address City/[facility]/ZIP Co de Phone Number [facility] [address] [place] [phone] * (ABNORMAL) TSH (11/08/2022 1:14 PM EDT) Thyroid Stimulating Hormone 8.44(H) 0.32 - 4.0 uIU/mL [facility] Comment:Note: A sustained TS H level above 2.5 uIU/mL may warrant further investigation. TSH 3rd Generation ([facility]) 11/08/2022 1:14 PM EDT 11/08/2022 1:14 PM EDT [facility] External Provider LAB BLO OD ORDERABLES Final Result Performing Organization Address [facility]/ZIP Co de Phone Number [facility] [address] [place] [address] [phone] * (ABNORMAL) T4, Free (11/08/2022 1:14 PM EDT) Free T4 (Free Thyroxine) <0.42(L) 0.71 - 1.85 ng/dL [facility] 11/08/2022 1:14 PM EDT 11/08/2022 1:14 PM EDT [facility] External Provider LAB BLO OD ORDERABLES Final Result Performing Organization Address City/[facility]/ZIP Co de Phone Number [facility] [address] [place] [phone] [phone] * (ABNORMAL) Sed Rate by Modified Gabyren (10/22/2022 10:13 AM EDT) Erythrocyte Sedimentation Rate 26(H) 0 - 20 MM/HR [facility] Comment:Patients with polycy themia and many hemoglobin abnormalitiesmay have depressed sed rates whereas patients with anemiamay have elevated sed rates. 10/22/2022 10:1 3 AM EDT 10/22/2022 10:13 AM EDT [facility] External Provider LAB BLO OD ORDERABLES Final Result Performing Organization Address [facility] Co de Phone Number [facility] [address] [place] [phone] * (ABNORMAL) C-reactive Protein (10/22/2022 10:13 AM EDT) C Reactive Protein 1.98(H) < or = 0.50 mg/dL [facility] 10/22/2022 10:1 3 AM EDT 10/22/2022 10:13 AM EDT [facility] External Provider LAB BLO OD ORDERABLES Final Result Performing Organization Address [facility] Co de Phone Number [facility] [address] [place] [phone] * ALT (10/22/2022 10:13 AM EDT) Alanine Aminotransferase 18 0 - 31 U/L [facility] 10/22/2022 10:1 3 AM EDT 10/22/2022 10:13 AM EDT [facility] External Provider LAB BLO OD ORDERABLES Final Result Performing Organization Address [facility] Co de Phone Number [facility] [address] [place] [phone] * AST (10/22/2022 10:13 AM EDT) Aspartate Amino Transferase 20 5 - 31 U/L [facility] 10/22/2022 10:1 3 AM EDT 10/22/2022 10:13 AM EDT [facility] External Provider LAB BLO OD ORDERABLES Final Result Performing Organization Address [facility] Co de Phone Number [facility] [address] [place] [address] [place] [phone] * Creatinine, Serum (10/22/2022 10:13 AM EDT) Creatinine, Serum 0.76 0.5 - 1.4 mg/dL [facility] Estimated Glomerular Filt Rate >60 [facility] Comment:NOTE: For -Am erican individuals, multiply the result by 1.210.Chronic Kidney Disease: Estimated GFR < 60 mL/min/1.25w2Eoaroq Kidney Disease: Estimated GFR < 15 mL/min/1.73m2 10/22/2022 10:1 3 AM EDT 10/22/2022 10:13 AM EDT [facility] External Provider LAB BLO OD ORDERABLES Final Result [facility] [address] [place] [phone] * Tramadol, urine (10/22/2022 10:12 AM EDT) Tramadol, Ur >[address]365 [facility] Comment: Report Name Results Units Reference Range SiteDRUG MONITOR, TRAMADOL, QN, URINE [id number]: >38249 (H)ng/mL <100Tramadol: >17290 (H)ng/mL <100Tramadol Comments: See Tramadol Notes, LDT NotesDRUG MONITORING TEMPLATE PW6Utigd and Comments:This drug testing is for medical treatment only.Analysis was performed as non-forensic testing andthese results should be used only by healthcareproviders to render diagnosis or treatment, or tomonitor progress of medical conditions.Tramadol Notes:Tramadol, Desmethyltramadol detected is consistent withthe use of the drug Tramadol.LDT Notes:Confirmation tests were developed and their analyticalperformance characteristics have been determined by[facility]. It has not been cleared or approvedby the FDA. This assay has been validated pursuant tothe CLIA regulations and is used for clinical purposes.Healthcare Providers needing Interpretation assistance,please contact us at [phone] ( )M- F, 8am to 10pm ESTSite InformationNL1:[facility] [id number] [place] [id number] Laboratory Director: Shekhar Pierre M.D. Desmethyltramadol, Ur >[address] [facility] 10/22/2022 10:1 2 AM EDT 10/22/2022 10:38 AM EDT us [facility] External Provider LAB URI NE ORDERABLES Final Result [facility] [address] [place] [phone] * (ABNORMAL) Drug Monitoring, Panel 1, Screen, Urine (10/22/2022 10:12 AM EDT) Opiate Screen Urine Not Detected Not Detect [facility] Comment:Opiate cut-off is 30 0 ng/mL.Positive results are unconfirmed and should not be used fornon-medical purposes. Barbiturates, Urine Not Detected Not Detect [facility] Comment:Barbiturate cut-off is 200 ng/mL.Positive results are unconfirmed and should not be used fornon-medical purposes. Phencyclidine Screen Urine Not Detected Not Detect [facility] Comment:Phencyclidine cut-of f is 25 ng/mL.Positive results are unconfirmed and should not be used fornon-medical purposes. Amphetamine Screen Urine Not Detected Not Detect [facility] Comment:Amphetamine cut-off is 1000 ng/mL.Positive results are unconfirmed and should not be used fornon-medical purposes. Benzodiazepines Screen Urine POSITIVE(A) Not Detect [facility] Comment:Benzodiazepine cut-o ff is 200 ng/mL.Positive results are unconfirmed and should not be used fornon-medical purposes. Cocaine Screen Urine Not Detected Not Detect [facility] Comment:Cocaine cut-off is 3 00 ng/mL.Positive results are unconfirmed and should not be used fornon-medical purposes. Cannabinoid Screen Urine POSITIVE(A) Not Detect [facility] Comment:Cannabinoid cut-off is 50 ng/mL.Positive results are unconfirmed and should not be used fornon-medical purposes. FENTANYL URINE POSITIVE(A) Not Detect [facility] Comment:Fentanyl cut-off is 1 ng/mL.Positive results are unconfirmed and should not be used fornon-medical purposes. 10/22/2022 10:1 2 AM EDT 10/22/2022 10:34 AM EDT us [facility] External Provider LAB URI NE ORDERABLES Final Result [facility] [address] [place] [phone] * (ABNORMAL) Comprehensive Metabolic Panel (09/27/2022 2:11 PM EST) Sodium 141 135 - 145 mmol/L [facility] Potassium 4.3 3.3 - 5.1 mmol/L [facility] Chloride 104 96 - 108 mmol/L [facility] Carbon Dioxide 30(H) 22 - 29 mmol/L [facility] Anion Gap 11(L) 12 - 20 [facility] Urea Nitrogen (BUN) 13 9 - 16 mg/dL [facility] Creatinine, Serum 0.73 0.5 - 1.4 mg/dL [facility] Creatinine Clr Calc Pharmacy 73.6 [facility] Comment:Provided height and weight: 157.48 cm,70.76 kg.eGFR (calculated from the MDRD study equation) and eCrCl(calculated from the Cockcroft-Gault equation) are based ondifferent parameters and may not yield comparable results.If eCrCl result is absurd, please check patient'sheight/weight. Estimated Glomerular Filt Rate >60 [facility] Comment:NOTE: For -Am erican individuals, multiply the result by 1.210.Chronic Kidney Disease: Estimated GFR < 60 mL/min/1.24b3Ketbdc Kidney Disease: Estimated GFR < 15 mL/min/1.73m2 Glucose 90 60 - 115 mg/dL [facility] Calcium 8.8 8.4 - 10.2 mg/dL [facility] Bilirubin, Total 0.4 0.0 - 1.0 mg/dL [facility] Aspartate Amino Transferase 25 5 - 31 U/L [facility] Alanine Aminotransferase 20 0 - 31 U/L [facility] Total Protein 6.7 6.5 - 8.0 g/dL [facility] Albumin Level 4.1 3.5 - 5.0 g/dL [facility] Alkaline Phosphatase 71 39 - 117 U/L [facility] 09/27/2022 2:11 PM EST 09/27/2022 2:14 PM EST us [facility] External Provider LAB BLO OD ORDERABLES Final Result [facility] [address] [place] [phone] * (ABNORMAL) CBC auto differential (09/27/2022 2:11 PM EST) White Blood Count 7.5 4.8 - 10.8 X10*3/uL [facility] Red Blood Count 4.42 4.20 - 5.50 X10*6/uL [facility] Hemoglobin 12.4 12.0 - 16.0 g/dl [facility] Hematocrit 36.9(L) 37.0 - 47.0 % [facility] Mean Corpuscular Volume 83.5 80.0 - 98.0 fL [facility] Mean Corpuscular Hemoglobin 28.1 27.0 - 33.0 pg [facility] Mean Corpuscular HGB Conc 33.6 31.0 - 35.0 g/dl [facility] Red Cell Distribution Width 12.5 11.0 - 16.0 % [facility] Platelet Count 139(L) 160 - 400 X10*3/uL [facility] Mean Platelet Volume 12.0 9.4 - 12.3 fL [facility] Neutrophils Percent Auto 54.6 45 - 73 % [facility] Imm Gran Pct Auto 0.4 0.0 - 0.4 % [facility] Lymphocytes Percent Auto 28.7 20 - 40 % [facility] Monocytes Percent Auto 8.3 2 - 11 % [facility] Eosinophils Percent Auto 7.3(H) 0 - 4 % [facility] Basophils Percent Auto 0.7 0 - 2 % [facility] NRBC Pct Auto 0.0 0.0 - 0.2 /100WBC [facility] Neutrophils Absolute Auto 4.1 2.0 - 8.3 x10*3/uL [facility] Imm Gran Abs Auto 0.03 0.00 - 0.03 X10*3/uL [facility] Lymphocytes Absolute Auto 2.2 1.2 - 4.9 X10*3/uL [facility] Monocytes Absolute Auto 0.6 0.1 - 1.2 X10*3/uL [facility] Eosinophils Absolute Auto 0.6(H) 0.0 - 0.4 X10*3/uL [facility] Basophils Absolute Auto 0.1 0.0 - 0.2 X10*3/uL [facility] NRBC Abs Auto 0.000 0.0 - 0.012 X10*3/uL [facility] 09/27/2022 2:11 PM EST 09/27/2022 2:14 PM EST us [facility] External Provider LAB BLO OD ORDERABLES Final Result [facility] [address] [place] [phone] documented in this encounter Visit Diagnoses Not on filedocumented in this encounter Care Teams Elevator Serviceman Relationship Specialty Start Date End Date Gordon Velez MD [address] [place] [address] PCP - General Internal Medicine 11/30/19 documented as of this encounter
--- OUTSIDE RECORDS SUMMARY | 2025-06-23 17:42 | XMS_ITS | Encounter Summary ---
Author Organization [employer] Address [address] [facility] [address] [place] [address] Care Team Providers Care Screen Cleaner Name Role Phone Gordon Velez MD Primary Care Prov ider Reason for Visit * Reason Onset Date Comments Nurse Triage 01/08/2025 Encounter Details Date Type Department Care Team ([facility] st Contact Info) Description 01/08/2025 Telephone [facility] [address] [place] [address] Gordon Veelz MD [address] [place], [place] [phone] Nurse Triage Social History Tobacco Use Types [...] - 01/11/2025 9:45 AM EDT TC via manager erp. No answer. Unable to leave voicemail as mailbox is full. * Telephone Encounter - Lorrie Sheppard - 01/08/2025 3:42 PM EDT Tc from pt returning phone call. Occ[employer] * Telephone Encounter - Ofelia Grimes RN - 01/08/2025 2:38 PM EDT TC to pt to obtain blood sugars from home to assess glycemic control for provider information to determine refills. BLS neon tube pumper utilized. No ringing as call went straight to voicemail, voicemail box is not set up and unable to leave a voicemail. * Telephone Encounter - Leatha Gama RN - 01/08/2025 12:09 PM EDT Called pt. Via [employer] neon tube pumper [phone] Julio. Pt. States that she has been [...] higher acuity questions Please contact pt at [phone]. (Occitan Speaker) documented in this encounter Plan of Treatment Upcoming Encounters Date Type Department Care Team ([facility] st Contact Info) Description 07/05/2025 1:30 PM EST Office Visit [facility] [address] [place] [address] Gordon Velez MD [address] [place] [address] documented as of this encounter Visit Diagnoses Not on filedocumented in this encounter Additional Health Concerns Assessment Noted Time PHQ-9 Depression Total Score: 5 10/17/19 25 10:16 AM EDT documented as of this encounter Care Teams Screen Cleaner Relationship Specialty Start Date End Date Gordon Velez MD [address] [place] [address] PCP - General Internal Medicine 11/30/19 documented as of this encounter
--- OUTSIDE RECORDS SUMMARY | 2025-06-23 17:42 | XMS_ITS | Clinical Summary ---
Author Organization [address] [facility] Address [address] [place] [address] Phone Care Team Providers Care Process Consultant Name Role Phone Gordon Velez Primary Care [...] propionate (FLONASE) 50 mcg/actuation nasal spray 1 [place] by Each Nare route 2 times daily. [...] Diagnosed Date T2DM (type 2 diabetes mellitus) ([facility] V24, CM S/[facility] V28) 06/01/2024 Hyperlipidemia associated wi th type 2 diabetes mellitus ([facility] V24, [facility] V28) 06/01/2024 Social History [...] topic Insurance MEDICAID - [place] Care Teams Process Consultant Relationship Specialty Start Date End Date Gordon Velez [address] [place], [place] [phone] PCP - General Internal Medicine 05/15/24
--- OUTSIDE RECORDS SUMMARY | 2025-06-23 17:42 | XMS_ITS | Encounter Summary ---
Author Organization [employer] Address [address] [facility] 7t [place] [address] Care Team Providers Care Automobile Rental Agent Name Role Phone Gordon Velez MD Primary Care Prov ider Reason for Visit * Reason Comments Med Refill Encounter Details Date Type Department Care Team (Late st Contact Info) Description 01/31/[address] [facility] MEDICINE [address] [place] [address] Gordon Velez MD [address] [place], [place] [phone] Severe persistent asthma without complication Social History [...] t he electric, gas, oil or water [employer] threatened to shut off services in your [...] [facility] [address] [place] [address] Gordon Velez MD [address] [place] [address] documented as of this encounter Visit Diagnoses Diagnosis Severe persistent asthma without complication (HCC) documented in this encounter Care Teams Automobile Rental Agent Relationship Specialty Start Date End Date Gordon Velez MD [address] [place] [address] PCP - General Internal Medicine 11/30/19 documented as of this encounter
--- OUTSIDE RECORDS SUMMARY | 2025-06-23 17:42 | XMS_ITS | Encounter Summary ---
Author Organization [employer] Address [address] [facility] 7 [place] [address] Care Team Providers Care Restorer Paper And Prints Name Role Phone Gordon Velez MD Primary Care Prov ider Reason for Visit * Reason Comments Med Refill Encounter Details Date Type Department Care Team ([facility] st Contact Info) Description 08/13/2024 Refill [facility]EDS [address] [place], [place] [phone] Gordon Velez MD [address] [place] [address] Social History Tobacco Use Types Packs/Day Years [...] 07/05/2025 1:30 PM EST Office Visit [facility] [address] [place] [address] Gordon Velez MD [address] [place] [address] documented as of this encounter Visit Diagnoses Not on filedocumented in this encounter Additional Health Concerns Assessment Noted Time PHQ-9 Depression Total Score: 18 024 1:56 PM EDT documented as of this encounter Care Teams Restorer Paper And Prints Relationship Specialty Start Date End Date Gordon Velez MD [address] [place] [address] PCP - General Internal Medicine 11/30/19 documented as of this encounter
--- OUTSIDE RECORDS SUMMARY | 2025-06-23 17:42 | XMS_ITS | Encounter Summary ---
Author Organization [employer] Address [address] [facility] 7 [place] [address] Care Team Providers Care Disc Sander Name Role Phone Gordon Velez MD Primary Care Prov ider Reason for Visit * Reason Onset Date Comments Error 12/10/2024 Encounter Details Date Type Department Care Team ([facility] st Contact Info) Description 12/10/2024 Telephone [facility] MEDICINE [address] [place] [address] Gordon Velez MD [address] [place], [place] [phone] Error Social History Tobacco Use Types Packs/Day [...] Upcoming Encounters Date Type Department Care Team ([facility] st Contact Info) Description 07/05/2025 1:30 PM EST Office Visit [facility] MED & PEDS [address] [place] [address] Gordon Velez MD [address] [place] [address] documented as of this encounter Visit Diagnoses Not on filedocumented in this encounter Additional Health Concerns Assessment Noted Time PHQ-9 Depression Total Score: 5 10/17/19 25 10:16 AM EDT documented as of this encounter Care Teams Disc Sander Relationship Specialty Start Date End Date Gordon Velez MD [address] [place] [address] PCP - General Internal Medicine 11/30/19 documented as of this encounter
--- OUTSIDE RECORDS SUMMARY | 2025-06-23 17:42 | XMS_ITS | Encounter Summary ---
Author Organization [employer] Address 75 [facility] 7 [place] [address] Care Team Providers Care Tool Inspector Name Role Phone Gordon Velez MD Primary Care Prov ider Reason for Visit * Reason Onset Date Comments Med Request 09/17/2024 Encounter Details Date Type Department Care Team ([facility] st Contact Info) Description 09/17/2024 Telephone [facility] MED[facility]INE [address] [place] [address] Gordon Velez MD [address] [place], [place] [phone] Med Request Social History Tobacco Use Types [...] AM EST Tc from pt requesting medication Wajmwjs-Tpsudvq-Kqthfw Collin (Medicated Pain Relieving) 1.2-5.7-6.3 % patch to be sent to [facility], pt inform she needs a better dosage for pain. documented in this encounter Plan of Treatment Upcoming Encounters Date Type Department Care Team (Late st Contact Info) Description 07/05/2025 1:30 PM EST Office Visit [facility] MED & PEDS 505 [place] [address] Gordon Velez MD [address] [place] [address] documented as of this encounter Visit Diagnoses Not on filedocumented in this encounter Additional Health Concerns Assessment Noted Time PHQ-9 Depression Total Score: 18 024 1:56 PM EDT documented as of this encounter Care Teams Tool Inspector Relationship Specialty Start Date End Date Gordon Velez MD [address] [place] [address] PCP - General Internal Medicine 11/30/19 documented as of this encounter
--- OUTSIDE RECORDS SUMMARY | 2025-06-23 17:42 | XMS_ITS | Clinical Summary ---
Author Organization [facility] Address [address] [place] [address] Care Team Providers Care Bankruptcy Paralegal Name Role Phone Verna Michael Mcclain Primary Care Provider + [phone] Allergies No known active allergies Medications traMADoL [...] patient's age to complete this topic Insurance [employer] Care Teams Bankruptcy Paralegal Relationship Specialty Start Date End Date Michael Gillespie [address] [place] [address] NATHAN Cortez [address] PCP - General Internal Medicine 11/24/20
--- OUTSIDE RECORDS SUMMARY | 2025-06-23 17:42 | XMS_ITS | Encounter Summary ---
Author Organization [employer] Address 75 [facility] 7 [place] [address] Care Team Providers Care Digital Program Manager Name Role Phone Gordon Velez MD Primary Care Prov ider Encounter Details Date Type Department Care Team (Late Contact Info) Description 07/18/2022 Telephone [facility] MED & [facility]EDS [address] [place], [place] [phone] Gordon Velez MD [address] [place], [place] [phone] Social History Tobacco Use Types Packs/Day Years [...] Description 07/05/2025 1:30 PM EST Office Visit [facility] MED [facility]EDS [address] [place], [place] [phone] Gordon Velez MD [address] [place], [place] [phone] documented as of this encounter Visit Diagnoses Not on filedocumented in this encounter Care Teams Digital Program Manager Relationship Specialty Start Date End Date Gordon Velez MD [address] [place] [address] [place] [address] PCP - General Internal Medicine 11/30/19 documented as of this encounter
--- OUTSIDE RECORDS SUMMARY | 2025-06-23 17:42 | XMS_ITS | Encounter Summary ---
Author Organization [employer] Address 75 [facility] 7t [place] [address] Care Team Providers Care Gameplay Engineer Name Role Phone Gordon Velez MD Primary Care Prov ider Reason for Visit * Reason Onset Date Comments New Med Request 01/24/2024 Encounter Details Date Type Department Care Team (Late st Contact Info) Description 01/24/2024 Telephone [facility] 230 [place] [address] Gordon Velez MD [address] [place], [place] [phone] New Med Request Social History Tobacco Use [...] EST Office Visit [facility]EDS [address] [place] [address] Gordon Velez MD [address] [place] [address] documented as of this encounter Visit Diagnoses Not on filedocumented in this encounter Care Teams Gameplay Engineer Relationship Specialty Start Date End Date Gordon Velez MD [address] [place] [address] PCP - General Internal Medicine 11/30/19 documented as of this encounter
--- OUTSIDE RECORDS SUMMARY | 2025-06-23 17:42 | XMS_ITS | Encounter Summary ---
Author Organization [employer] Address 75 [facility] 7t [place] [address] Care Team Providers Care Reproduction Artist Name Role Phone Gordon Velez MD Primary Care Prov ider Encounter Details Date Type Department Care Team ([facility] st Contact Info) Description 05/13/2024 Orders Only [facility] MED & PEDS [address] [place], [place] [phone] oGrdon Velez MD 505 [place] [address] Social History Tobacco Use Types Packs/Day Years [...] Upcoming Encounters Date Type Department Care Team ([facility] Contact Info) Description 07/05/2025 1:30 PM EST Office Visit [facility] MED & PEDS 505 [place] [address] FamGordon Salas MD 505 [place] [address] documented as of this encounter Procedures Procedure Name Priority Date/Time Associated Diagnosis Comments TSH Routine 05/13/2024 2:24 PM EDT T4, FREE Routine 05/13/2024 2:24 PM EDT documented in this encounter Results * T4, Free (05/13/2024 2:24 PM EDT) Free T4 (Free Thyroxine) 0.98 0.71 - 1.85 ng/dL [facility] 05/13/2024 2:24 PM EDT 05/13/2024 5:31 PM EDT us Generic External Data Provider LAB BLOOD ORDERAB LES Final Result [facility] [address] [place] [address] [phone] * (ABNORMAL) TSH (05/13/2024 2:24 PM EDT) Thyroid Stimulating Hormone 0.20(L) 0.32 - 4.0 uIU/mL [facility] Comment:TSH 3rd Generation ( [facility]) 05/13/2024 2:24 PM EDT 05/13/2024 5:31 PM EDT us Generic External Data Provider LAB BLOOD ORDERAB LES Final Result [facility] [address] [place] [address] [phone] documented in this encounter Visit Diagnoses Not on filedocumented in this encounter Additional Health Concerns Assessment Noted Time PHQ-9 Depression Total Score: 18 024 1:56 PM EDT documented as of this encounter Care Teams Reproduction Artist Relationship Specialty Start Date End Date Gordon Velez MD [address] [place] [address] PCP - General Internal Medicine 11/30/19 documented as of this encounter
--- OUTSIDE RECORDS SUMMARY | 2025-06-23 17:42 | XMS_ITS | Encounter Summary ---
Author Organization [employer] Address 75 [facility] 7t [place] [address] Care Team Providers Care Carpet Installation Specialist Name Role Phone Gordon Velez MD Primary Care Prov ider Encounter Details Date Type Department Care Team ([facility] st Contact Info) Description 08/21/2023 Orders Only [facility] MED & PEDS [address] [place], [place] [phone] Gordon Velez MD [address] [place] [address] Social History Tobacco Use Types Packs/Day Years [...] Description 07/05/2025 1:30 PM EST Office Visit [facility] MED & PEDS [address] [place] [address] Gordon Velez MD [address] [place] [address] documented as of this encounter Visit Diagnoses Not on filedocumented in this encounter Care Teams Carpet Installation Specialist Relationship Specialty Start Date End Date Gordon Velez MD [address] [place] [address] PCP - General Internal Medicine 11/30/19 documented as of this encounter
--- OUTSIDE RECORDS SUMMARY | 2025-06-23 17:42 | XMS_ITS | Encounter Summary ---
Author Organization [employer] Address 75 [facility] 7 [place] [address] Care Team Providers Care Pollution Control Chemist Name Role Phone Gordon Velez MD Primary Care Prov ider Reason for Visit * Reason Onset Date Comments Referral 09/10/2023 Encounter Details Date Type Department Care Team ([facility] Contact Info) Description 09/10/2023 Telephone [facility] MED & PEDS [address] [place] [address] Gordon Velez MD [address] [place] [address] Referral Social History Tobacco Use Types Packs/Day [...] Pt states Mammo can be sent to [facility]. Ordersent as requested. Pt then stated needing a referral to [facility] eye care for routine DM eye exam [...] eye referral flavia sent to [facility]. States she is not able to make an appointment due to office not having a referral. documented in this encounter Plan of Treatment Upcoming Encounters Date Type Department Care Team (Late st Contact Info) Description 07/05/2025 1:30 PM EST Office Visit [facility] CH[facility] MED & PEDS [address] [place] [address] Gordon Velez MD [address] [place] [address] documented as of this encounter Visit Diagnoses Diagnosis Type 2 diabetes mellitus without complication, without long-term current use of insulin (HCC) documented in this encounter Care Teams Pollution Control Chemist Relationship Specialty Start Date End Date Gordon Velez MD [address] [place] [address] PCP - General Internal Medicine 11/30/19 documented as of this encounter
--- OUTSIDE RECORDS SUMMARY | 2025-06-23 17:42 | XMS_ITS | Encounter Summary ---
Author Organization [employer] Address 75 [facility] 7t [place] [address] Care Team Providers Care Audio Video Tech Name Role Phone Gordon Velze MD Primary Care Prov ider Reason for Visit * Reason Onset Date Comments Appointment Request 09/16/2023 Encounter Details Date Type Department Care Team ([facility] st Contact Info) Description 09/16/2023 Telephone [facility] MEDICINE [address] [place] [address] Gordon Velez MD [address] [place], [place] [phone] Appointment Request Social History Tobacco Use Types [...] t he electric, gas, oil or water [email or web address] threatened to shut off services in your [...] mammogram. Please contact pt if any questions: [phone] documented in this encounter Plan of Treatment Upcoming Encounters Date Type Department Care Team (Late st Contact Info) Description 07/05/2025 1:30 PM EST Office Visit [facility] MED & PEDS [address] [place] [address] Gordon Velez MD [address] [place] [address] documented as of this encounter Visit Diagnoses Not on filedocumented in this encounter Care Teams Audio Video Tech Relationship Specialty Start Date End Date Gordon Velez MD [address] [place] [address] PCP - General Internal Medicine 11/30/19 documented as of this encounter
--- OUTSIDE RECORDS SUMMARY | 2025-06-23 17:43 | XMS_ITS | Encounter Summary ---
Author Organization [employer] Address 75 [facility] 7t [place] [address] Care Team Providers Care Therapy Site Coordinator Name Role Phone Gordon Velez MD Primary Care Prov ider Encounter Details Date Type Department Care Team ([facility] st Contact Info) Description 11/08/2023 Orders Only [facility] MEDICINE [address] [place] [address] ProviderMarito MD Social History Tobacco Use Types [...] Upcoming Encounters Date Type Department Care Team ([facility] st Contact Info) Description 07/05/2025 1:30 PM EST Office Visit [facility] MED & PEDS [address] [place] [address] Gordon Velez MD [address] [place] [address] documented as of this encounter Procedures Procedure Name Priority Date/Time Associated Diagnosis Comments HM COLONOSCOPY Routine 11/24/2015 12:21 PM EDT documented in this encounter Results * Hm Colonoscopy (11/24/2015 12:21 PM EDT) Historical Provider HEALTH MAINTENANCE Final Result documented in this encounter Visit Diagnoses Not on filedocumented in this encounter Care Teams Therapy Site Coordinator Relationship Specialty Start Date End Date Gordon Velez MD [address] [place] [address] PCP - General Internal Medicine 11/30/19 documented as of this encounter
--- OUTSIDE RECORDS SUMMARY | 2025-06-23 17:43 | XMS_ITS | Encounter Summary ---
Author Organization [employer] Address [address] [address] Care Team Providers Care It Lead Name Role Phone Gordon Velez MD Primary Care Prov ider Reason for Visit * Reason Onset Date Comments PT1 02/06/2023 Encounter Details Date Type Department Care Team ([facility] Contact Info) Description 02/06/2023 Telephone [facility] MED & PEDS [address] [place] [address] Gordon Velez MD [address] [place] [address] PT1 Social History Tobacco Use Types Packs/Day [...] requesting PT1 Date: 02/21/23 Time: 12:15 Address: [address] [place] [address] Specialty: endocrinology Crib Clerk: yes Wheelchair: no, cane documented in this encounter Plan of Treatment Upcoming Encounters Date Type Department Care Team (Late st Contact Info) Description 07/05/2025 1:30 PM EST Office Visit [facility] MED & PEDS [address] [place] [address] Gordon Velez MD [address] [place] [address] documented as of this encounter Visit Diagnoses Not on filedocumented in this encounter Care Teams It Lead Relationship Specialty Start Date End Date Gordon Velez MD [address] [place] [address] PCP - General Internal Medicine 11/30/19 documented as of this encounter
--- OUTSIDE RECORDS SUMMARY | 2025-06-23 17:43 | XMS_ITS | Encounter Summary ---
Author Organization [employer] Address 75 [facility] 7 [place] [address] Care Team Providers Care Wildlife Technician Name Role Phone Gordon Velez MD Primary Care Prov ider Reason for Visit * Reason Onset Date Comments Med Refill 06/28/2023 Encounter Details Date Type Department Care Team ([facility] st Contact Info) Description 06/28/2023 Telephone [facility] MED & PEDS [address] [place] [address] Gordon Velez MD [address] [place] [address] Med Refill Social History Tobacco Use Types [...] Medication is currently inactive Please sent to [facility] [place], [place] - [address] [facility] documented in this encounter Plan of Treatment Upcoming Encounters Date Type Department Care Team (Late st Contact Info) Description 07/05/2025 1:30 PM EST Office Visit [facility] MED & PEDS [address] [place] [address] Gordon Velez MD [address] [place] [address] documented as of this encounter Visit Diagnoses Not on filedocumented in this encounter Care Teams Wildlife Technician Relationship Specialty Start Date End Date Gordon Velez MD [address] [place] [address] PCP - General Internal Medicine 11/30/19 documented as of this encounter
--- OUTSIDE RECORDS SUMMARY | 2025-06-23 17:43 | XMS_ITS | Encounter Summary ---
Author Organization [employer] Address 75 [facility] 7t [place] [address] Care Team Providers Care Employment Advisor Name Role Phone Gordon Velez MD Primary Care Prov ider Reason for Visit * Reason Comments Med Refill Encounter Details Date Type Department Care Team ([facility] st Contact Info) Description 06/18/2025 Refill [facility] MEDICINE [address] [place] [address] Sugar Burns MD [address] [place] [address] Social History Tobacco Use Types Packs/Day Years [...] Description 07/05/2025 1:30 PM EST Office Visit [facility] MED & PEDS [address] [place] [address] Gordon Velez MD 505 [place] [address] documented as of this encounter Goals Goal [...] documented as of this encounter Care Teams Employment Advisor Relationship Specialty Start Date End Date Gordon Velez MD 505 [place] [address] PCP - General Internal Medicine 11/30/19 documented as of this encounter
--- OUTSIDE RECORDS SUMMARY | 2025-06-23 17:43 | XMS_ITS | Encounter Summary ---
Author Organization [employer] Address 75 [facility] 7 [place] [address] Care Team Providers Care Industrial Truck Operator Name Role Phone Gordon Velez MD Primary Care Prov ider Reason for Visit * Reason Onset Date Comments Nurse Triage 01/28/2025 Encounter Details Date Type Department Care Team ([facility] st Contact Info) Description 01/28/2025 Telephone C CHC MED & PEDS [address] [place] [address] Gordon Velez MD [address] [place] [address] Nurse Triage Social History Tobacco Use Types [...] caller accepted this outcome. Contact pt at [phone] documented in this encounter Plan of Treatment Upcoming Encounters Date Type Department Care Team ([facility] st Contact Info) Description 07/05/2025 1:30 PM EST Office Visit [facility]EDS [address] [place] [address] Gordon Velez MD [address] [place] [address] documented as of this encounter Visit Diagnoses Not on filedocumented in this encounter Additional Health Concerns Assessment Noted Time PHQ-9 Depression Total Score: 5 10/17/19 25 10:16 AM EDT documented as of this encounter Care Teams Industrial Truck Operator Relationship Specialty Start Date End Date Gordon Velez MD [address] [place] [address] PCP - General Internal Medicine 11/30/19 documented as of this encounter
--- OUTSIDE RECORDS SUMMARY | 2025-06-23 17:43 | XMS_ITS | Encounter Summary ---
Author Organization [employer] Address 75 [facility] 7t [place] [address] Care Team Providers Care Coal Handling Supervisor Name Role Phone Gordon Velez MD Primary Care Prov ider Reason for Visit * Reason Onset Date Comments Appointment Request 07/10/2023 Encounter Details Date Type Department Care Team ([facility] st Contact Info) Description 07/10/2023 Telephone [facility] MEDICINE [address] [place] [address] Gordon Velez MD [address] [place], [place] [phone] Appointment Request Social History Tobacco Use Types [...] 07/05/2025 1:30 PM EST Office Visit [facility] MED & PEDS [address] [place] [address] Gordon Velez MD [address] [place] [address] documented as of this encounter Visit Diagnoses Not on filedocumented in this encounter Care Teams Coal Handling Supervisor Relationship Specialty Start Date End Date Gordon Velez MD [address] [place] [address] PCP - General Internal Medicine 11/30/19 documented as of this encounter
--- OUTSIDE RECORDS SUMMARY | 2025-06-23 17:43 | XMS_ITS | Encounter Summary ---
Author Organization [employer] Address 75 [facility] 7 [place] [address] Care Team Providers Care Cranberry Grower Name Role Phone Gordon Velez MD Primary Care Prov ider Reason for Visit * Reason Comments Med Refill Encounter Details Date Type Department Care Team ([facility] st Contact Info) Description 12/08/2024 Refill [facility] MED & PEDS 505 [place], [place] [phone] Gordon Velez MD [address] [place] [address] Type 2 diabetes mellitus without complications (CMS/HCC) [...] Upcoming Encounters Date Type Department Care Team ([facility] st Contact Info) Description 07/05/2025 1:30 PM EST Office Visit [facility] MED & PEDS [address] [place] [address] Gordon Velez MD [address] [place] [address] documented as of this encounter Visit Diagnoses Diagnosis Type 2 diabetes mellitus without complications (HCC) documented in this encounter Additional Health Concerns Assessment Noted Time PHQ-9 Depression Total Score: 5 10/17/19 25 10:16 AM EDT documented as of this encounter Care Teams Cranberry Grower Relationship Specialty Start Date End Date Gordon Velez MD [address] [place] [address] PCP - General Internal Medicine 11/30/19 documented as of this encounter
--- OUTSIDE RECORDS SUMMARY | 2025-06-23 17:43 | XMS_ITS | Encounter Summary ---
Author Organization [employer] Address 75 [facility] 7 [place] [address] Care Team Providers Care Music Minister Name Role Phone Gordon Velez MD Primary Care Prov ider Reason for Visit * Reason Onset Date Comments Med Refill 11/04/2024 Encounter Details Date Type Department Care Team ([facility] st Contact Info) Description 11/04/2024 Telephone [facility] CH[facility] MED & PEDS [address] [place] [address] Gordon Velez MD [address] [place] [address] Med Refill Social History Tobacco Use Types [...] chart. PCP will not be refilling med. AGRISCIENCE TECHNOLOGY INSTRUCTOR nurses tried contacting pt to inform. * Telephone Encounter - Kasandra Vidal - 11/04/2024 12:50 PM EDT TC from pt requesting medication refill. Medications needing refill : oxyCODONE-acetaminophen (Percocet) 5-325 MG tablet To be sent to: [facility] [place] - [address] [facility] documented in this encounter Plan of Treatment Upcoming Encounters Date Type Department Care Team (Late st Contact Info) Description 07/05/2025 1:30 PM EST Office Visit [facility] MED & PEDS [address] [facility] [place] [address] Gordon Velez MD [address] [place] [address] documented as of this encounter Visit Diagnoses Not on filedocumented in this encounter Additional Health Concerns Assessment Noted Time PHQ-9 Depression Total Score: 5 10/17/19 25 10:16 AM EDT documented as of this encounter Care Teams Music Minister Relationship Specialty Start Date End Date Gordon Velez MD [address] [place] [address] PCP - General Internal Medicine 11/30/19 documented as of this encounter
--- OUTSIDE RECORDS SUMMARY | 2025-06-23 17:43 | XMS_ITS | Encounter Summary ---
Author Organization [employer] Address 75 [facility] 7 [place] [address] Care Team Providers Care Statistical Programmer Analyst Name Role Phone Gordon Velez MD Primary Care Prov ider Reason for Visit * Reason Onset Date Comments Appointment Request 02/15/2023 Encounter Details Date Type Department Care Team ([facility] Contact Info) Description 02/15/[address] [facility] CHC MED & PEDS [address] [place], [place] [phone] Gordon Velez MD 505 [place] [address] Appointment Request Social History Tobacco Use Types [...] requesting to r/s appt from 02/15/23. Details: [facility] ED f/up 01/14- r/s Patient speaks hebrew. documented in this encounter Plan of Treatment Upcoming Encounters Date Type Department Care Team (Late st Contact Info) Description 07/05/2025 1:30 PM EST Office Visit [facility] MED & PEDS [address] [place] [address] Gordon Velez MD [address] [place] [address] documented as of this encounter Visit Diagnoses Not on filedocumented in this encounter Care Teams Statistical Programmer Analyst Relationship Specialty Start Date End Date Gordon Velez MD [address] [place] [address] PCP - General Internal Medicine 11/30/19 documented as of this encounter
--- OUTSIDE RECORDS SUMMARY | 2025-06-23 17:43 | XMS_ITS | Encounter Summary ---
Author Organization [employer] Address [address] [facility] 7 [place] [address] Care Team Providers Care Logistics Research Engineer Name Role Phone Gordon Velez MD Primary Care Prov ider Reason for Visit * Reason Comments Med Refill Encounter Details Date Type Department Care Team ([facility] st Contact Info) Description 11/15/2024 Refill [facility] CHC MED & PEDS [address] [place], [place] [phone] Gordon Velez MD [address] [place] [address] Severe persistent asthma without complication Social History [...] 1:30 PM EST Office Visit [facility] MED & PEDS [address] [place] [address] Gordon Velez MD [address] [place] [address] documented as of this encounter Visit Diagnoses Diagnosis Severe persistent asthma without complication (HCC) documented in this encounter Additional Health Concerns Assessment Noted Time PHQ-9 Depression Total Score: 5 10/17/19 25 10:16 AM EDT documented as of this encounter Care Teams Logistics Research Engineer Relationship Specialty Start Date End Date Gordon Velez MD [address] [place] [address] PCP - General Internal Medicine 11/30/19 documented as of this encounter
--- OUTSIDE RECORDS SUMMARY | 2025-06-23 17:43 | XMS_ITS | Encounter Summary ---
Author Organization [employer] Address 75 [facility] 7 [place] [address] Care Team Providers Care Public Safety Director Name Role Phone Gordon Velez MD Primary Care Prov ider Reason for Visit * Reason Onset Date Comments Med Refill 06/02/2024 Encounter Details Date Type Department Care Team ([facility] st Contact Info) Description 06/02/2024 Telephone [facility] MEDICINE [address] [place] [address] Gordon Velez MD 505 [place], [place] [phone] Med Refill Social History Tobacco Use Types [...] 50 MG tablet To be sent to: [facility] - [place], [place] - [address] [place] [address] documented in this encounter Plan of Treatment Upcoming Encounters Date Type Department Care Team (Late st Contact Info) Description 07/05/2025 1:30 PM EST Office Visit [facility] CHC MED & PEDS [address] [place] [address] Gordon Velez MD [address] [place] [address] documented as of this encounter Visit Diagnoses Not on filedocumented in this encounter Additional Health Concerns Assessment Noted Time PHQ-9 Depression Total Score: 18 024 1:56 PM EDT documented as of this encounter Care Teams Public Safety Director Relationship Specialty Start Date End Date Gordon Velez MD [address] [place] [address] PCP - General Internal Medicine 11/30/19 documented as of this encounter
--- OUTSIDE RECORDS SUMMARY | 2025-06-23 17:43 | XMS_ITS | Encounter Summary ---
Author Organization [employer] Address [address] [facility] 7 [place] [address] Care Team Providers Care Nuclear Test Technician Name Role Phone Gordon Velez MD Primary Care Prov ider Reason for Visit * Reason Onset Date Comments Appointment Request 02/04/2025 Encounter Details Date Type Department Care Team ([facility] Contact Info) Description 02/04/2025 Telephone [facility] CHC MED & PEDS [address] [place] [address] Gordon Velez MD [address] [place] [address] Appointment Request Social History Tobacco Use Types [...] be scheduled in mar. Contact pt at [phone] documented in this encounter Plan of Treatment Upcoming Encounters Date Type Department Care Team (Late st Contact Info) Description 07/05/2025 1:30 PM EST Office Visit [facility] MED & PEDS [address] [place] [address] Gordon Velez MD [address] [place] [address] documented as of this encounter Visit Diagnoses Not on filedocumented in this encounter Additional Health Concerns Assessment Noted Time PHQ-9 Depression Total Score: 5 10/17/19 25 10:16 AM EDT documented as of this encounter Care Teams Nuclear Test Technician Relationship Specialty Start Date End Date Gordon Velez MD [address] [place] [address] PCP - General Internal Medicine 11/30/19 documented as of this encounter
--- OUTSIDE RECORDS SUMMARY | 2025-06-23 17:43 | XMS_ITS | Encounter Summary ---
Author Organization [employer] Address [address] [place] [address], [place] [address] Care Team Providers Care Credit Product Analyst Name Role Phone Gordon Velez MD Primary Care Prov ider Encounter Details Date Type Department Care Team (Late Contact Info) Description 11/21/2022 Orders Only [facility] MED & PEDS [address] [place], [place] [phone] Gordon Velez MD [address] [place], [place] [phone] Social History Tobacco Use Types Packs/Day Years [...] [facility] [address] [place], [place] [phone] Gordon Velez MD [address] [place], [place] [phone] documented as of this encounter Visit Diagnoses Not on filedocumented in this encounter Care Teams Credit Product Analyst Relationship Specialty Start Date End Date Gordon Velez MD [address] [place] [address] PCP - General Internal Medicine 11/30/19 documented as of this encounter
--- OUTSIDE RECORDS SUMMARY | 2025-06-23 17:43 | XMS_ITS | Encounter Summary ---
Author Organization [employer] Address 75 [facility] 7 [place] [address] Care Team Providers Care Horticulture Professor Name Role Phone Gordon Velez MD Primary Care Prov ider Reason for Visit * Reason Onset Date Comments Med Refill 05/06/2025 Encounter Details Date Type Department Care Team ([facility] st Contact Info) Description 05/06/2025 Telephone [facility] CHC MED & PEDS [address] [place] [address] Gordon Velez MD [address] [place] [address] Med Refill Social History Tobacco Use Types [...] Base) MCG/ACT inhaler To be sent to: [facility] - [place], [place] - [address] [facility] documented in this encounter Plan of Treatment Upcoming Encounters Date Type Department Care Team (Late st Contact Info) Description 07/05/2025 1:30 PM EST Office Visit [facility] CHC MED & PEDS [address] [place] [address] Gordon Velez MD [address] [place] [address] documented as of this encounter Goals Goal [...] documented as of this encounter Care Teams Horticulture Professor Relationship Specialty Start Date End Date FamGordon Salas MD [address] [place] [address] PCP - General Internal Medicine 11/30/19 documented as of this encounter
--- OUTSIDE RECORDS SUMMARY | 2025-06-23 17:43 | XMS_ITS | Encounter Summary ---
Author Organization [employer] Address 75 [facility] 7 [place] [address] Care Team Providers Care Generator Rebuilder Name Role Phone Gordon Velez MD Primary Care Prov ider Reason for Visit * Reason Onset Date Comments PT1 02/04/2025 Encounter Details Date Type Department Care Team ([facility] Contact Info) Description 02/04/2025 Telephone [facility] CHC MED & PEDS [address] [place], [place] [phone] Gordon Velez MD [address] [place] [address] PT1 Social History Tobacco Use Types Packs/Day [...] Y/N: Yes Provider name or facility name: [facility] Escort needed: Y/N: No Do you have a wheelchair: Y/N: No Visits: (2x month) documented in this encounter Plan of Treatment Upcoming Encounters Date Type Department Care Team (Late st Contact Info) Description 07/05/2025 1:30 PM EST Office Visit [facility] MED & PEDS [address] [place] [address] Gordon Velez MD [address] [place] [address] documented as of this encounter Visit Diagnoses Not on filedocumented in this encounter Additional Health Concerns Assessment Noted Time PHQ-9 Depression Total Score: 5 10/17/19 25 10:16 AM EDT documented as of this encounter Care Teams Generator Rebuilder Relationship Specialty Start Date End Date Gordon Velez MD [address] [place] [address] PCP - General Internal Medicine 11/30/19 documented as of this encounter
--- OUTSIDE RECORDS SUMMARY | 2025-06-23 17:43 | XMS_ITS | Encounter Summary ---
Author Organization [email or web address] Address 75 [facility] 7 [place] [address] Care Team Providers Care Bio Medical Technician Name Role Phone Gordon Velez MD Primary Care Prov ider Reason for Visit * Reason Onset Date Comments Med Refill 12/08/2024 Encounter Details Date Type Department Care Team (Late st Contact Info) Description 12/08/2024 Telephone [facility] MEDICINE [address] [place] [address] Gordon Velez MD 505 [place], [place] [phone] Med Refill Social History Tobacco Use Types [...] 100 MG tablet To be sent to: [facility] - [place], [place] - [address] [facility] documented in this encounter Plan of Treatment Upcoming Encounters Date Type Department Care Team (Late st Contact Info) Description 07/05/2025 1:30 PM EST Office Visit [facility] CHC MED & PEDS [address] [facility] [place] [address] Gordon Velez MD 505 [place] [address] documented as of this encounter Visit Diagnoses Not on filedocumented in this encounter Additional Health Concerns Assessment Noted Time PHQ-9 Depression Total Score: 5 10/17/19 25 10:16 AM EDT documented as of this encounter Care Teams Bio Medical Technician Relationship Specialty Start Date End Date Gordon Velez MD [address] [place] [address] PCP - General Internal Medicine 11/30/19 documented as of this encounter
--- OUTSIDE RECORDS SUMMARY | 2025-06-23 17:43 | XMS_ITS | Encounter Summary ---
Author Organization [employer] Address 75 [facility] 7 [place] [address] Care Team Providers Care Children'S Counselor Name Role Phone Gordon Velez MD Primary Care Prov ider Reason for Visit * Reason Comments Med Refill Encounter Details Date Type Department Care Team ([facility] st Contact Info) Description 07/30/2024 Refill [facility] CHC MED & PEDS [address] [place], [place] [phone] Gordon Velez MD [address] [place] [address] Chronic midline low back pain without sciatica [...] to pt regarding message below. Called via [employer] ID# [id number]. F/u with PCP Re: pain scheduled for 08/07/24 @10:30am. * Telephone Encounter - AUDI Woodard - 07/31/2024 5:18 PM EST Last med refill on 07/07/24 following televisit for hip pain. Does not appear to be on [employer] TESTER. Will defer refill until PCP returns. She should be seen for an appt if pain is worsening. Thank you! documented in this encounter Plan of Treatment Upcoming Encounters Date Type Department Care Team ([facility] st Contact Info) Description 07/05/2025 1:30 PM EST Office Visit [facility] MED & PEDS [address] [place] [address] Gordon Velez MD [address] [place] [address] documented as of this encounter Visit Diagnoses Diagnosis Chronic midline low back pain without sciatica documented in this encounter Additional Health Concerns Assessment Noted Time PHQ-9 Depression Total Score: 18 024 1:56 PM EDT documented as of this encounter Care Teams Children'S Counselor Relationship Specialty Start Date End Date Gordon Velez MD [address] [place] [address] PCP - General Internal Medicine 11/30/19 documented as of this encounter
--- OUTSIDE RECORDS SUMMARY | 2025-06-23 17:43 | XMS_ITS | Encounter Summary ---
Author Organization [employer] Address 75 [facility] 7t [place] [address] Care Team Providers Care Field Machinist Name Role Phone Gordon Velez MD Primary Care Prov ider Reason for Visit * Reason Comments Med Refill Encounter Details Date Type Department Care Team (Late st Contact Info) Description 02/07/2025 Refill [facility] MEDICINE [address] [place] [address] Gordon Velez MD [address] [place], [place] [phone] Severe persistent asthma without complication Social History [...] Description 07/05/2025 1:30 PM EST Office Visit [facility] MED & PEDS [address] [place] [address] Gordon Velez MD [address] [place] [address] documented as of this encounter Visit Diagnoses Diagnosis Severe persistent asthma without complication (HCC) documented in this encounter Additional Health Concerns Assessment Noted Time PHQ-9 Depression Total Score: 5 10/17/19 25 10:16 AM EDT documented as of this encounter Care Teams Field Machinist Relationship Specialty Start Date End Date Gordon Velez MD [address] [place] [address] PCP - General Internal Medicine 11/30/19 documented as of this encounter
--- OUTSIDE RECORDS SUMMARY | 2025-06-23 17:43 | XMS_ITS | Encounter Summary ---
Author Organization [employer] Address 75 [facility] 7t [place] [address] Care Team Providers Care Bag Machine Set Up Operator Name Role Phone Gordon Velez MD Primary Care Prov ider Encounter Details Date Type Department Care Team ([facility] st Contact Info) Description 02/01/2025 Orders Only [facility] CHC MED & PEDS [address] [place], [place] [phone] Gordon Velez MD [address] [place] [address] Social History Tobacco Use Types Packs/Day Years [...] Description 07/05/2025 1:30 PM EST Office Visit [facility] CHC MED & PEDS [address] [place] [address] Gordon Velez MD [address] [place] [address] documented as of this encounter Visit Diagnoses Not on filedocumented in this encounter Additional Health Concerns Assessment Noted Time PHQ-9 Depression Total Score: 5 10/17/19 25 10:16 AM EDT documented as of this encounter Care Teams Bag Machine Set Up Operator Relationship Specialty Start Date End Date Gordon Velez MD [address] [place] [address] PCP - General Internal Medicine 11/30/19 documented as of this encounter
--- OUTSIDE RECORDS SUMMARY | 2025-06-23 17:43 | XMS_ITS | Encounter Summary ---
Author Organization [employer] Address 75 [facility] 7 [place] [address] Care Team Providers Care Spreading Machine Operator Name Role Phone Gordon Velez MD Primary Care Prov ider Encounter Details Date Type Department Care Team (Late Contact Info) Description 02/11/2023 Orders Only [facility] MEDICINE [address] [place] [address] Shannan Greene LPN Social History Tobacco Use [...] Description 07/05/2025 1:30 PM EST Office Visit [facility] CHC MED & PEDS [address] [place], [place] [phone] Gordon Velez MD [address] [place], [place] [phone] documented as of this encounter Visit Diagnoses Not on filedocumented in this encounter Care Teams Spreading Machine Operator Relationship Specialty Start Date End Date Gordon Velez MD [address] [place] [address] PCP - General Internal Medicine 11/30/19 documented as of this encounter
--- OUTSIDE RECORDS SUMMARY | 2025-06-23 17:43 | XMS_ITS | Clinical Summary ---
Author Organization [employer] Address [address] [facility] [address] [place] [address] Care Team Providers Care Night Shift Manager Name Role Phone Gordon Velez MD Primary Care Prov ider Allergies Active Allergy Reactions Criticality Noted Date Comments Acetaminophen Hives 10/09/2018 Ibuprofen Itching 01/03/2015 Morphine 03/11/2012 Other reaction(s): nausea Medications omeprazole (PriLOSEC) [address] capsuleIndicatio ns:Gastroesophag eal reflux disease without esophagitis TAKE ONE CAPSULE BY MOUTH ONCE DAILY, 30 TO 60 MINUTES BEFORE A MEAL 90 capsule 3 Active buPROPion XL (Wellbutrin XL) 300 MG 24 hr tablet TAKE ONE TABLET DAILY WITH 150mg TABLET Active escitalopram (Lexapro) 10 MG tablet Take 10 mg by mouth in the morning. Active polyethylene glycol, PEG, 3350 (Glycolax) 17 GM/SCOOP powderIndication s:Chronic idiopathic constipation STIR 17GM INTO 8 OUNCES OF WATER, OR JUICE, AND DRINK DAILY NEEDED / DIRECTED 510 g 024 Active Diclofenac Sodium 1 % gelIndications:M ultiple joint pain APPLY 2 GRAM'S TO AFFECTED AREA(s) THREE TIMES DAILY NEEDED 100 g 024 Active Artificial Tears 0.2-0.2-1 % solutionIndicati ons:Seasonal allergies PLACE ONE DROP IN THE AFFECTED EYE(S) THREE TIMES DAILY 15 mL 11 024 Active polyvinyl alcohol (Liquifilm Tears) 1.4 % ophthalmic solution INSTILL ONE DROP IN THE AFFECTED EYE(S) THREE TIMES DAILY Active Blood Glucose Monitoring Suppl (FreeStyle Lite) w/Device kit 1 kit 4 times daily. 1 kit 024 2024 Active Nebulizers [facility] Use nebulizer as instructed 1 each Active albuterol (2.5 MG/3ML) 0.083% nebulizer solution INHALE ONE AMPULE USING A NEBULIZER EVERY 4 HOURS NEEDED FOR WHEEZING 90 mL 2 Active docusate sodium (Colace) 100 MG capsuleIndicatio ns:Chronic idiopathic constipation TAKE ONE CAPSULE TWICE DAILY 180 capsule 3 Active buPROPion XL (Wellbutrin XL) 150 MG 24 hr tablet TAKE 1 TABLET EVERY MORNING WITH 300mg TABLET Active hydrOXYzine HCl (Atarax) 25 MG tablet TAKE ONE TABLET EVERY NIGHT NEEDED FOR SLEEP Active levothyroxine (Synthroid, Levoxyl) 137 MCG tablet Take 1 tablet by mouth Once per day. Active terbinafine (LamISIL) 250 MG tablet Take 250 mg by mouth Once per day. Active nabumetone (Relafen) 750 MG tablet Take 750 mg by mouth 2 times daily. Active dextran 70-hypromellose (GenTeal Tears) 0.1-0.3 % ophthalmic solution apply 0.1-0.3 Drops to the eye 3 times daily. Active clotrimazole (Lotrimin) 1 % cream apply topically to affected area(s) twice daily Active clonazePAM (KlonoPIN) 1 MG tablet Take 1 mg by mouth 2 times daily as needed. Active Camphor-Menthol- Methyl Collin (Medicated Pain Relieving) 1.2-5.7-6.3 % patch Place 1 patch on the skin if needed each day (Pain). 30 patch 3 Active lidocaine (Lidoderm) 5 % patch Apply 1 patch topically Once per day. Remove & discard patch within 12 hours or as directed by MD. 30 patch 3 Active lactulose (Chronulac) 10 GM/15ML solution TAKE 15 ML BY MOUTH ONCE DAILY FOR 15 DAYS 150 mL Active mineral oil liquid Take 30 mL by mouth if needed each day for constipation. 180 mL 12 025 2025 Active nicotine (Nicoderm CQ) 21 MG/24HR patch Place 1 patch on the skin 1 (one) time each day at the same time for 15 days. 15 patch Active nicotine polacrilex (Nicotine Mini) 2 MG lozenge 1 or 2 lozenges every 2 hours as needed instead of a cigarette. 100 lozenge Active glucose blood test strip Monitor glucose 2 times a day 100 each 12 06/07/20 25 11:06 AM EST 025 2025 Active Lanc[employer] Devices (Autolet) lancing device 1 each by Other route 2 times daily. 1 each 025 2025 Active Aspirin Adult Low Strength 81 MG EC tablet TAKE ONE TABLET EVERY DAY 90 tablet 3 Active Oyster Shell Calcium 500 MG tablet TAKE ONE TABLET TWICE DAILY 180 tablet 3 Active cholecalciferol (Vitamin D-3) 25 MCG tablet TAKE ONE TABLET EVERY DAY 90 tablet 3 Active atorvastatin (Lipitor) 40 MG tabletIndication s:Hyperlipidemia associated with type 2 diabetes mellitus (HCC) TAKE ONE TABLET EVERY DAY 90 tablet 3 Active loratadine (Claritin) 10 MG tabletIndication s:Seasonal allergies TAKE ONE TABLET EVERY DAY NEEDED ALLERGIES 90 tablet 3 Active Ketotifen Fumarate 0.035 % solutionIndicati ons:Redness of left eye INSTILL ONE DROP IN THE AFFECTED EYE(S) TWICE DAILY IN THE MORNING AND AT BEDTIME 5 mL Active famotidine (Pepcid) 20 MG tablet TAKE ONE TABLET BY MOUTH AT BEDTIME 90 tablet 3 06/07/20 25 11:06 AM EST 025 Active glucose blood (FREESTYLE LITE) test stripIndications :Type 2 diabetes mellitus without complication, without long-term current use of insulin (HCC) USE TO TEST BLOOD SUGAR 2 TO 3 TIMES A DAY 100 each 3 025 Active Blood Glucose Monitoring Suppl (FreeStyle Lite) w/Device kit 1 each 4 times daily. 1 kit 025 Active Januvia 100 MG tabletIndication s:Type 2 diabetes mellitus without complications (HCC) TAKE ONE TABLET BY MOUTH ONCE DAILY 30 tablet 3 06/21/20 25 11:37 AM EST 025 Active Blood Glucose Monitoring Suppl (ONE TOUCH ULTRA 2) w/Device kit 1 kit 4 times daily 1 kit 025 Active fluticasone (Flonase) 50 MCG/ACT nasal sprayIndications :Seasonal allergies INHALE ONE SPRAY IN EACH NOSTRIL TWICE DAILY 48 g Active albuterol 108 (90 Base) MCG/ACT inhalerIndicatio ns:Severe persistent asthma without complication (HCC) INHALE TWO PUFFS EVERY 6 HOURS NEEDED FOR WHEEZING 18 g 025 Active Breo Ellipta 200-25 MCG/ACT aerosol powderIndication s:Moderate persistent asthma without complication INHALE 1 PUFF DAILY AT THE SAME TIME EACH DAY. RINSE MOUTH AFTER USE 60 each 1 06/07/20 25 11:06 AM EST 025 Active Atrovent HFA 17 MCG/ACT inhaler INHALE TWO PUFFS EVERY 6 HOURS 12.9 g 3 06/04/20 25 11:08 AM EST 025 Active Nutritional Supplements (Boost High Protein) liquid BRINK ONE BOTTLE TWICE DAILY 5688 mL 06/21/20 25 11:37 AM EST 025 Active buprenorphine ER (Sublocade) 300 mg/1.5mL injectionIndicat ions:Uncomplicat ed opioid dependence (CMS/HCC) ([facility]) Inject 1.5 mL (1 each) under the skin every month to absorb continually. 1.5 mL 1 025 2025 Active Lancets (OneTouch Delica Plus [id number]) miscIndications: Type 2 diabetes mellitus without complication, without long-term current use of insulin ([facility]) TEST BLOOD SUGAR TWICE DAILY 100 each 3 06/16/20 25 10:48 AM EST 025 Active senna (Senokot) 8.6 MG tablet TAKE ONE OR TWO TABLETS AT BEDTIME NEEDED FOR CONSTIPATION 60 tablet 2 06/21/20 25 11:37 AM EST 025 Active TRUEplus Lancets 33G miscIndications: Type 2 diabetes mellitus without complication, without long-term current use of insulin ([facility]) 1 each by Other route Once per day. 90 each 3 025 2024 Discontinued Nutritional Supplements (Boost High Protein) liquid DRINK ONE BOTTLE TWICE DAILY 1 mL 11 025 2024 Discontinued ipratropium (Atrovent) 17 MCG/ACT inhaler Inhale 2 puffs every 6 (six) hours. 12.9 g 3 025 2024 Discontinued sennosides (Senokot) 8.6 MG tablet 1 or 2 tablets PO at bedtime prn constipation. 60 tablet 2 025 2024 Discontinued Buprenorphine HCl-Naloxone HCl (Suboxone) 8-2 MG SL filmIndications: Uncomplicated opioid dependence (CMS/HCC) (HCC) Place 1 Film under the tongue 2 times daily for 7 days. 14 Film 025 2024 Discontinued(R eorder (will not trigger notification to Pharmacy)) Buprenorphine HCl-Naloxone HCl (Suboxone) 8-2 MG SL filmIndications: Uncomplicated opioid dependence (CMS/HCC) (HCC) Place 1 Film under the tongue 2 times daily for 7 days. Do not start before May 31, 2025. 14 Film 025 2024 Discontinued(R eorder (will not trigger notification to Pharmacy)) Buprenorphine HCl-Naloxone HCl (Suboxone) 8-2 MG SL filmIndications: Uncomplicated opioid dependence (CMS/HCC) (HCC) Place 1 Film under the tongue 2 times daily for 5 days. 10 Film 025 2024 Active Problems Patient Care Coordination No te Formatting of this note migh t be different from the original. [id number] ALEXANDRIA Gallardo Problem Noted Date Diagnosed Date Right hip [...] uptake on the left side, followed at [facility] and she is on evaluation for surgery [...] AM EDT): Patient was receiving tramadol from [facility], but recent screening test was positive for [...] Type Department Care Team Description 06/18/2025 Refill [facility] [address] [place] [address] Sugar Burns MD 06/07/2025 Telephone [facility] [address] [place] [address] Gordon Velez MD Medication Question 06/07/2025 Telephone [facility] [address] [place] [address] Gordon Velez MD chart prep 06/07/2025 Telephone [facility] [address] [place] [address] Lakeisha Segura MA 06/04/2025 Telephone [facility] [address] [place] [address] Lakeisha Segura MA 06/04/2025 Refill [facility] [address] [place] [address] Gordon Velez MD Type 2 diabetes mellitus without complication, without long-term current use of insulin (HCC) 06/02/2025 Orders Only GENERIC EXTERNAL DATA DEPARTMENT Provider, Generic External Data 05/31/2025 1:00 PM EST Office Visit [facility] [address] [place] [address] Homar Shields MD Uncomplicated opioid dependence (CMS/HCC) (HCC) (Primary Dx) 05/31/2025 Travel 05/31/2025 Refill [facility] [address] [place] [address] Gordon Velez MD 05/27/2025 Refill [facility] [address] [place] [address] Gordon Velez MD 05/25/2025 Refill [facility] [address] [place] [address] Helen Jeffery RN Uncomplicated opioid dependence (CMS/HCC) (HCC) 05/24/2025 1:15 PM EST Office Visit [facility] [address] [place] [address] Homar Shields MD Opioid type dependence, continuous (CMS/HCC) (HCC) (Primary Dx) 05/24/2025 Travel 05/21/2025 Refill [facility] [address] [place] [address] Helen Jeffery, DENISHA Uncomplicated opioid dependence (CMS/HCC) (HCC) 05/14/2025 1:15 PM EDT Office Visit [facility] [address] [place] [address] Homar Shields MD Uncomplicated opioid dependence (CMS/HCC) (HCC) (Primary Dx) 05/14/2025 Travel 05/11/2025 Telephone [facility] [address] [place] [phone] Brenda Ball [place] 05/08/2025 Refill [facility] [address] [place] [address] Gordon Velez MD Moderate persistent asthma without complication 05/06/2025 Telephone [facility] [address] [place] [address] Gordon Velez MD Med Refill 05/05/2025 Refill [facility] [address] [place] [address] Gordon Velez MD Seasonal allergies; Severe persistent asthma without complication (HCC) 04/27/2025 Refill [facility] [address] [place] [address] Helen Jeffery RN Uncomplicated opioid dependence (CMS/HCC) (HCC) 04/27/2025 Refill [facility] [address] [place] [address] Helen Jeffery RN Uncomplicated opioid dependence (CMS/HCC) ([facility]) 04/27/2025 Refill [facility] [address] [place] [address] Helen Jeffery RN Uncomplicated opioid dependence (CMS/HCC) (HCC) 04/26/2025 1:15 PM EDT Office Visit [facility] [address] [place] [address] Homar Shields MD Opioid type dependence, continuous (CMS/HCC) ([facility]) (Primary Dx) 04/26/2025 Orders Only [facility] [address] [place] [phone] Homar Shields MD 04/26/2025 Travel 04/23/2025 Refill [facility] [address] [place] [address] Helen Jeffery RN Uncomplicated opioid dependence (CMS/HCC) ([facility]) 04/21/2025 Refill [facility] [address] [place] [address] Gordon Velez MD Severe persistent asthma without complication (HCC) 04/19/2025 1:15 PM EDT Office Visit [facility] [address] [place] [address] Homar Shields MD Uncomplicated opioid dependence (CMS/HCC) (Primary Dx) 04/19/2025 Travel 04/14/2025 Refill [facility] [address] [place] [address] Helen Jeffery, DENISHA Uncomplicated opioid dependence (CMS/HCC); Opioid type dependence, continuous (CMS/HCC) 04/12/2025 1:30 PM EDT Office Visit [facility] [address] [place] [address] Homar Shields MD Uncomplicated opioid dependence (CMS/HCC) (Primary Dx); Opioid type dependence, continuous (CMS/HCC) 04/12/2025 Travel 04/09/2025 Refill [facility] [address] [place] [address] Gordon Velez MD 04/05/2025 1:00 PM EDT Office Visit [facility] [address] [place] [address] Homar Shields MD Opioid type dependence, continuous (CMS/HCC) (Primary Dx) 04/05/2025 Travel 03/31/2025 Telephone [facility] [address] [place] [phone] Lakeisha Segura [place] 03/30/2025 Telephone [facility] [address] [place] [address] Lakeisha Segura [place] 03/30/2025 Telephone [facility] [address] [place] [address] Gordon Velez MD Med Refill 03/26/2025 Telephone [facility] [address] [place] [address] Gordon Velez MD Durable Medical Equipment 03/26/2025 Telephone [facility] [address] [place] [address] Gordon Velez MD Nurse Triage 03/26/2025 Refill [facility] [address] [place] [phone] Gordon Velez MD Type 2 diabetes mellitus without complications (CMS/HCC) from Last 3 Months Immunizations Immunization Administration [...] Description 07/05/2025 1:30 PM EST Office Visit [facility] [address] [place] [address] Gordon Velez MD [address] [place] [address] Health Maintenance Due Date Last Done Comments [...] suspicion or defensiveness General No Helen Jeffery RN Procedures Procedure Name Priority Date/Time Associated Diagnosis [...] 10:44 AM EST) Thyroglobulin, LC/MS/MS 0.1(A) ng/mL [facility] Comment:Reference Range: Int act Thyroid 2.8-40.9 Athyrotic <0.1 Note: Abnormal flagging is based on the reference interval for patients with intact thyroid.This test was performed using the Wacaichemiluminescent method. Values obtained fromdifferent assay methods cannot be usedinterchangeably. Thyroglobulin levels, regardlessof value, should not be interpreted as absoluteevidence of the presence or absence of disease. Thyroglobulin Comment See Below [facility] Comment:Thyroglobulin antibo dies (TGAB) interfere withthyroglobulin (TG) assays; therefore, TGAB assayshould always be performed in conjunction with aTG assay.For additional information, please refer tohttp://education.[employer]/faq/BSN605(This link is being provided for informational/educational purposes only.)THIS TEST WAS PERFORMED AT:[facility] [place] [phone] AMBROCIO MD 06/02/2025 10:4 4 AM EST 06/02/2025 10:44 AM EST us Generic External Data Provider LAB BLOOD ORDERAB LES Final Result [facility] [address] [place] [phone] * (ABNORMAL) Thyroblobulin, Tumor Marker w/Reflex (06/02/2025 10:44 AM EST) Thyroglobulin Antibody <1 <=1 IU/mL [facility] Comment:This Thyroglobulin a ntibody test was performedusing the [place]acai Chemiluminescent method.Values obtained from different assay methods cannot beused interchangeably. Thyroglobulin antibody levels,regardless of value, should not be interpreted asabsolute evidence of the presence or absence ofdisease. Thyroglobulin, LC/MS/MS TNP [facility] Thyroglobulin Level 0.1(A) ng/mL [facility] Comment:Reference Range: Ath yrotic: <0.1 ng/mLReference range applies to differentiated thyroidcancer patients following treatment. The presence ofmeasurable thyroglobulin indicates the presence ofthyroglobulin-producing thyroid tissue. Clinicalcorrelation is advised.This Thyroglobulin test was performed using theWacai Chemiluminescent method. Valuesobtained from different assay methods cannot beused interchangeably. Thyroglobulin levels, regardlessof value, should not be interpreted as absoluteevidence of the presence or absence of disease.THIS TEST WAS PERFORMED AT:[id number] [place] [phone] REID MD,PHD 06/02/2025 10:4 4 AM EST 06/02/2025 10:44 AM EST us Generic External Data Provider LAB BLOOD ORDERAB LES Final Result [facility] [address] [place] [phone] * Thyroglobulin Antibodies (06/02/2025 10:44 AM EST) Thyroglobulin Antibodies <1 < or = 1 IU/mL [facility] Comment:THIS TEST WAS PERFOR MED AT:[facility] [address] [phone] AMBROCIO MD 06/02/2025 10:4 4 AM EST 06/02/2025 10:44 AM EST us Generic External Data Provider LAB BLOOD ORDERAB LES Final Result Performing Organization Address City/[facility]/ZIP Co de Phone Number [facility] [address] [place] [phone] * TSH (06/02/2025 10:44 AM EST) Pathologist [facility] Thyroid Stimulating Hormone 0.33 0.32 - 4.0 uIU/mL [facility] Comment:TSH 3rd Generation ( [facility]) 06/02/2025 10:4 4 AM EST 06/02/2025 10:44 AM EST Generic External Data Provider LAB BLOOD ORDERAB LES Final Result Performing Organization Address [facility] Co de Phone Number [facility] [address] [place] [phone] * T4, Free (06/02/2025 10:44 AM EST) [facility] Free T4 (Free Thyroxine) 1.17 0.71 - 1.85 ng/dL [facility] 06/02/2025 10:4 4 AM EST 06/02/2025 10:44 AM EST Generic External Data Provider LAB BLOOD ORDERAB LES Final Result Performing Organization Address City/[facility] Co de Phone Number [facility] [address] [place] [phone] * (ABNORMAL) POCT TONY-14 Urine Drug [...] PM EST Narrative 05/25/2025 7:04 AM EST [place] [address] Ultrasound Report Signed Patient: Jodi Saenz MR#: [id number] : 1960 Acct:[id number] Age/Sex: 64 / F ADM Date: 05/24/25 Loc: HO.US Attending Dr: Nuris Wayne MD Ordering Physician: Nuris Wayne MD Date of Service: 05/24/25 Procedure(s): US soft tiss head and/or neck Accession Number(s): [id number] cc: Gordon Velez MD; Nuris Wayne MD [...] 05/25/25 0701 DD/ 1539 TD/TT: 05/24/25 1551 Balancer: Procedure Note Donotuseinterpreter, Image - 05/25/2025 [place] [address] Ultrasound Report Signed Patient: Herman Saenz#: [id number] : 1960Acct:[id number] Age/Sex: 64 / FADM Date: 05/24/25 Loc: HO.US Attending Dr: Nuris Wayne MD Ordering Physician: Nuris Wayne MD Date of Service: 05/24/25 Procedure(s): US soft tiss head and/or neck Accession Number(s): [id number] cc: Gordon Velez MD; Nuris Wayne MD [...] Wayne Gilliam MD 05/25/2025 07:01 AM EST RP Dictated By: Wayne George MD Signed By: <Electronically signed by Wayne Recinos MDin OV> 05/25/25 0701 DD/ 1539 TD/TT: 05/24/25 1551 Balancer: [facility] External Provider IMG US PROCEDURES Final Result * Drug Toxicology Monitoring Buprenorphine, with Confirmation, Urine (05/24/2025 12:00 AM EST) Buprenorphine NEGATIVE [facility] Norbuprenorphine NEGATIVE [facility] Naloxone, Urine NEGATIVE [facility] Buprenorphine Comments SEE NOTE [facility] Comment: Drug Monitoring ReportTest Ordered [...] their analyticalperformance characteristics have been determined by [employer]. It has not been cleared or approved by the FDA.This assay has been validated pursuant to the CLIAregulations and is used for clinical purposes.Healthcare Providers needing Interpretation assistance,please contact us at [phone] ( ) M-F,8am to 10pm ESTPERFORMING SITE:[employer] [facility], [address] [place], [place] [phone] Public Address Announcer: ASHVIN AMBROCIO MD, CLIA:[id number] Urine (Urine, Random) 05/24/2025 05/24/2025 Homar Shields MD LAB URINE ORDERABLES Final Resul t Performing Organization Address [facility] Co de Phone Number [facility] [address] [place] [phone] * (ABNORMAL) Buprenorphine Screen,Urine (04/26/2025 1:30 PM EDT) Buprenorphine Screen Positive( A) Not Detect ng/mL [facility] Comment:Buprenorphine cut-of f is 5 ng/mL.Positive results are unconfirmed and should not be used fornon-medical purposes. 04/26/2025 1:30 PM EDT 04/26/2025 2:47 PM EDT Homar Shields MD LAB URINE ORDERABLES Final Resul t Performing Organization Address [facility] Co de Phone Number [facility] [address] [place] [phone] * Drug Monitoring, Fentanyl, with Confirmation, Urine (04/26/2025 1:30 PM EDT) Fentanyl, Ur >250.0 [facility] Comment:CUTOFF 0.5 NG/ML Norfentanyl, Ur >250.0 [facility] Comment:CUTOFF 0.5 NG/ML Fentanyl Note SEE NOTE [facility] Comment: NOTES AND COMMENTSThis drug testing is for medical treatment only. Analysiswas performed as non-forensic testing and these resultsshould be used only by healthcare providers to renderdiagnosis or treatment, or to monitor progress of medicalconditions. Fentanyl Notes: Fentanyl, Norfentanyl detectedis consistent with the use of the drug Fentanyl.LDT Notes: Confirmation tests were developed and theiranalytical performance characteristics have been determinedby [employer]. It has not been cleared or approved bythe FDA. This assay has been validated pursuant to the CLIAregulations and is used for clinical purposes. HealthcareProviders needing Interpretation assistance, please contactus at [phone] ( ) M-F, 8am to 10pm ESTThis drug testing is for medical treatment only. Analysiswas performed as non-forensic testing and these resultsshould be used only by healthcare providers to renderdiagnosis or treatment, or to monitor progress of medicalconditions.PERFORMING SITE:[facility] [employer] [address] [phone] LaboratoryDirector: AMY GAMINO MD, CLIA: [id number] Urine (Urine, Random) 04/26/2025 1:30 PM EDT 04/26/2025 2:37 PM EDT Homar Shields MD LAB URINE ORDERABLES Final Resul t [facility] [address] [place] [phone] * POCT HGB A1C (12/22/2024 3:22 PM EDT) Hemoglobin A1C 5.5 4.0 - 6.0 % QC Media Lot # [id number] Lot# Expiration Date Blood 12/22/2024 3:22 PM EDT Michael Gillespie MD POINT OF CARE TEST ENTER/ED IT ORDERABLES Final Result * (ABNORMAL) Lipid Panel, Standard (12/10/2024 11:42 AM EDT) Triglycerides 127 <150 mg/dL [facility] Comment:Desirable Triglyceri de: less than 150 mg/dLBorderline High Triglyceride 150-199 mg/dLHigh Triglyceride: 200-499 mg/dLVery High Triglyceride: greater than or equal to 5OO mg/dL Cholesterol 140 <200 mg/dL [facility] Comment:Desirable Cholestero l: less than 200 mg/dLBorderline High Cholesterol: 200-239 mg/dLHigh Cholesterol: greater than 239 mg/dL LDL Cholesterol Calculated 77 <100 mg/dL [facility] Comment:Desirable LDL: less than 100 mg/dLNear Optimal/Above Optimal LDL: 110- 129 mg/dLBorderline High LDL: 130-159 mg/dLHigh LDL: 160-189 mg/dLVery High LDL: greater than or equal to 190 mg/dL HDL Cholesterol 38(L) >40 mg/dL [facility] Comment:Desirable HDL: great er than 40 mg/dL Note: This HDL assay may give artificially low results in patients with liver disease. Blood Venous blood specimen / Unknown 12/10/2024 11:42 AM EDT 12/10/2024 11:42 AM EDT Gordon Rose MD LAB BLOOD ORDERABL ES Final Result Performing Organization Address [facility] Co de Phone Number [facility] [address] [place] [phone] * Hepatitis C Antibody with Reflex to HCV, RNA, Quantitative, Real-Time PCR (05/13/2024 2:24 PM EDT) Hepatitis C Antibody Nonreactive Nonreactive [facility] Comment:Antibodies to HCV no t detected; does not exclude early acuteHCV infection. Blood Venous blood specimen / Unknown 05/13/2024 2:24 PM EDT 05/13/2024 5:31 PM EDT Gordon Rose MD LAB BLOOD ORDERABL ES Final Result Performing Organization Address City/[facility] Co de Phone Number [facility] [address] [place] [phone] * BI Mammogram Screening Tomosynthesis Left (09/19/2023 12:35 PM EST) Anatomical Region Laterality Modality Breast Left Mammography 09/19/2023 12:3 5 PM EST Narrative 09/23/2023 10:08 AM EST [facility] [address] [place] [address] Mammography Report Signed Patient: Jodi Saenz MR#: [id number] : 1960 Acct:[id number] Age/Sex: 62 / F ADM Date: 09/19/23 Loc: BLAZE Attending Dr: Sal Tabor CNM Ordering Physician: SAL TABOR CNM Results: 1 Negative Date of Service: 09/19/23 Follow Up: 1 Year From Orig inal Mammogram Procedure(s): MM tomosynthesis screening LT Accession Number(s): [id number] cc: SAL TABOR CNM EXAMINATION: MM SCREENING [...] in OV> 09/23/23 1004 DD/ 1235 TD/TT: Balancer: Procedure Note Donotuseinterpreter, Image - 09/23/2023 [facility] [address] [place] [address] Dr. Mario, NATHAN [address] Mammography Report Signed Patient: Jodi SaenzMR#: [id number] : 1960Acct:[id number] Age/Sex: 62 / FADM Date: 09/19/23 Loc: HO.MAMMO Attending Dr: Sal Tabor CNM Ordering Physician: SAL TABOResults: 1 Negative Date of Service: 09/19/23Follow Up: 1 Year From Orig ina Mammogram Procedure(s): MM tomosynthesis screening LT Accession Number(s): [id number] cc: SAL TABOR CNM EXAMINATION: MM SCREENING [...] in OV> 09/23/23 1004 DD/ 1235 TD/TT: Balancer: Sal Tabor CNM IMG BI PROCEDURES Final [...] along with historic and current clinical information. Comment: This Pap test has been evaluated with computer assisted technology. [facility] Refrigeration Service Technician: SEE COMMENT [facility] Comment: SL, CT(ASCP) CT screening location: [place] [address] HPV nRNA E6/E7 Not Detected Not Detected [facility] Comment: Methodology: Forklift Operator-Mediated Amplification This assay detects E6/E7 viral messenger RNA (mRNA) from 14 high-risk HPV types (16,18,31,33,35,39,45,51,52,56,58,59,66,68). Cervical sources are required for HPV testing. If a vaginal source from a patient who has had a total hysterectomy with removal of cervix was submitted, please contact the testing laboratory for alternative testing options. For additional information, please refer to http://education.[employer]/faq/FOK710r1 (This link if provided for information/ educational purposes only.) Interpretation/Res ult: SEE COMMENT [facility] Comment: Negative for intraepithelial lesion or malignancy. Atrophic pattern; predominantly parabasal cells LMP: NONE [facility] Prev. BX: NONE [facility] Prev. PAP: 03/2019 NIL/NEG HYST 2 CHERELLE 2012 [facility] Review Refrigeration Service Technician: SEE COMMENT [facility] Comment: CONRAD, CT(ASCP) CT screening location: [place] [address] SOURCE: None given [facility] Statement Of Adequacy: SATISFACTORY FOR EVALUATION [facility] 04/10/2022 11:2 2 AM EDT us Sal Tabor CNM LAB PATHOLOGY ORDERABLES Final Result [facility] [address] * MICROALBUMIN, RANDOM (05/31/2020 12:00 AM EST) Creatinine Urine 33.22 mg/dL [facility] Microalbum/Creati nine Ratio Ur TNP ug/mg cr [facility] Comment: Unable to calculate albumin/creatinine ratio due to low microalbumin or creatinine result. Microalbumin Urine <5.0 mg/L [facility] 05/31/2020 Historical Provider HISTORICAL/NON ORDERABLE LABS Final Result [facility] [address] * Hm Colonoscopy (11/24/2015 12:21 PM EDT) Historical Provider HEALTH MAINTENANCE Final Result from Last 3 Months or Most Recently Relevant to Health Maintenance [facility] [place] [address] Care Teams Night Shift Manager Relationship Specialty Start Date End Date FamGordon Salas MD [address] [place] [address] [place], [place] [phone] PCP - General Internal Medicine 11/30/19
--- OUTSIDE RECORDS SUMMARY | 2025-06-23 17:43 | XMS_ITS | Encounter Summary ---
Author Organization [employer] Address [address] [facility] 7 [place] [address] Care Team Providers Care Stonecutter Name Role Phone Gordon Velez MD Primary Care Prov ider Reason for Visit * Reason Onset Date Comments Medication Question 06/07/2025 Encounter Details Date Type Department Care Team ([facility] Contact Info) Description 06/07/2025 Telephone [facility] MED & PEDS [address] [place] [address] Gordon Velez MD [address] [place] [address] Medication Question Social History Tobacco Use Types [...] what next steps are Contact pt at [phone] (estonian) documented in this encounter Plan of Treatment Upcoming Encounters Date Type Department Care Team (Late st Contact Info) Description 07/05/2025 1:30 PM EST Office Visit [facility] MED [facility]EDS [address] [place], [place] [phone] Gordon Velez MD [address] [place], [place] [phone] documented as of this encounter Goals Goal [...] documented as of this encounter Care Teams Stonecutter Relationship Specialty Start Date End Date Gordon Velez MD [address] [place] [address] PCP - General Internal Medicine 11/30/19 documented as of this encounter
--- OUTSIDE RECORDS SUMMARY | 2025-06-23 17:43 | XMS_ITS | Encounter Summary ---
Author Organization [employer] Address [address] [facility] 7t [place] [address] Care Team Providers Care Physician Name Role Phone Gordon Velez MD Primary Care Prov ider Reason for Visit * Reason Onset Date Comments Medication Question 07/31/2024 Encounter Details Date Type Department Care Team ([facility] st Contact Info) Description 07/31/2024 Telephone [facility] MEDICINE [address] [place] [address] Gordon Velez MD [address] [place], [place] [phone] Medication Question Social History Tobacco Use Types [...] Description 07/05/2025 1:30 PM EST Office Visit [facility] MED & PEDS [address] [place], [place] [phone] Gordon Velez MD [address] [place] [address] documented as of this encounter Visit Diagnoses Not on filedocumented in this encounter Additional Health Concerns Assessment Noted Time PHQ-9 Depression Total Score: 18 024 1:56 PM EDT documented as of this encounter Care Teams Physician Relationship Specialty Start Date End Date Gordon Velez MD [address] [place] [phone] PCP - General Internal Medicine 11/30/19 documented as of this encounter
--- OUTSIDE RECORDS SUMMARY | 2025-06-23 17:43 | XMS_ITS | Encounter Summary ---
Author Organization [employer] Address [address] [facility] 7 [place] [address] Care Team Providers Care Animal Rides Manager Name Role Phone Gordon Velez MD Primary Care Prov ider Reason for Visit * Reason Onset Date Comments Mamogram Order 05/15/2024 Encounter Details Date Type Department Care Team ([facility] st Contact Info) Description 05/15/2024 Telephone [facility] MEDICINE [address] [place] [address] Gordon Velez MD [address] [place], [place] [phone] Mamogram Order Social History Tobacco Use Types [...] any questions you can contact pt at [phone]. (Kiswahili Speaker) documented in this encounter Plan of Treatment Upcoming Encounters Date Type Department Care Team ([facility] st Contact Info) Description 07/05/2025 1:30 PM EST Office Visit [facility] MED & PEDS [address] [place] [address] Gordon Velez MD [address] [place] [address] documented as of this encounter Visit Diagnoses Not on filedocumented in this encounter Additional Health Concerns Assessment Noted Time PHQ-9 Depression Total Score: 18 024 1:56 PM EDT documented as of this encounter Care Teams Animal Rides Manager Relationship Specialty Start Date End Date Gordon Velez MD [address] [place] [address] PCP - General Internal Medicine 11/30/19 documented as of this encounter
--- OUTSIDE RECORDS SUMMARY | 2025-06-23 17:43 | XMS_ITS | Encounter Summary ---
Author Organization [employer] Address [address] [facility] 7t [place] [address] Care Team Providers Care Staff Radiologist Name Role Phone Gordon Velez MD Primary Care Prov ider Reason for Visit * Reason Onset Date Comments Referral 09/24/2023 Encounter Details Date Type Department Care Team ([facility] st Contact Info) Description 09/24/2023 Telephone [facility] MEDICINE [address] [place] [address] Gordon Velez MD [address] [facility] [address] [place], [place] [phone] Referral Social History Tobacco Use Types Packs/Day [...] the past 12 months, has t he [employer], [employer], oil or water [employer] threatened to shut off services in your [...] [place] referred last month [place] [facility] Pt will be contacted when appts become available from their office. * Telephone Encounter - Macario Segura - 09/24/2023 12:52 PM EST TC from pt requesting new referral : DATE: N/A TIME:N/A Address: [address] [place] [address] Dr [address] Floor, [place] [address] Visits: N/A Facility Name: [facility] Type of Specialist: Gastroenterologists Phone # : [phone] Pt is requesting referral for a colonoscopy stated no concerns. If any questions you can contact pt at [phone] documented in this encounter Plan of Treatment Upcoming Encounters Date Type Department Care Team ([facility] st Contact Info) Description 07/05/2025 1:30 PM EST Office Visit [facility] MED & PEDS [address] [place] [address] Gordon Velez MD [address] [place] [address] documented as of this encounter Visit Diagnoses Not on filedocumented in this encounter Care Teams Staff Radiologist Relationship Specialty Start Date End Date Gordon Velez MD [address] [place] [address] PCP - General Internal Medicine 11/30/19 documented as of this encounter
== END 2025-06-23 15:27 | disposition home or self-care (01) ==
LOC: HO.HSMS 14:47
PROVIDERS: PCP Internal Medicine; Visit Provider Psychiatry & Neurology Neurology
DX: R25.1 Tremor, unspecified (principal); R06.83 Snoring; G47.10 Hypersomnia, unspecified; G43.909 Migraine, unspecified, not intractable, without status migrainosus
CPT/HCPCS: 99204; G2211

== ENCOUNTER → 2025-06-23 14:45 | Outpatient (BNVA) | payer MEDICARE, MEDICAID, SELFPAY | PROVIDERS: PCP Internal Medicine; Visit Provider Psychiatry & Neurology Neurology | DX: G43.909 Migraine, unspecified, not intractable, without status migrainosus (principal); G47.10 Hypersomnia, unspecified; M54.2 Cervicalgia | CPT/HCPCS: 99202 ==